=== PATIENT | male | born 1955 | race Caucasian/White ===

== ENCOUNTER 2017-06-02 18:39 | Emergency (ER) | payer MEDICARE ==
[2017-06-02 18:51] VITALS: BP 160/77; PULSE 86; RESP 18; TEMP 97.2
[2017-06-02] MEDS ORDERED: KETOROLAC 30 MG/ML 1 ML VIAL IVP STA (19:09)
--- NOTE | 2017-06-02 19:42 | ED ---
General Adult HPI - General Chief complaint: Back Pain/Injury Stated complaint: BACK PAIN, POSS KIDNEY Time Seen by Provider: 06/02/17 18:55 Source: patient, RN notes reviewed Mode of arrival: ambulatory Limitations: no limitations - History of Present Illness Initial comments: This is a 62-year-old male who presents to the emergency department with chief complaint of left-sided back pain. Patient states that 2 days ago he developed left sided back pain. He states that he feels like it is in his kidney. He states that the pain is constant and a deep, dull ache with intermittent sharp pain. He denies any radiation of the pain. He states that he has had difficulty urinating, stating that he feels a pressure-like pain when trying to urinate. He denies any increase in frequency or hematuria. He denies any history of kidney stones. Denies fevers or chills. States that pain is increased with movement, coughing or laughing, or anything that causes increase in "pressure." Patient does state that he has had multiple recent falls, however he denies injury to his back. Denies chest pain, shortness of breath, abdominal pain, nausea or vomiting, constipation or diarrhea, dysuria or hematuria, numbness or tingling, headache or vision changes. - Related Data Home Medications Medication Instructions Recorded Confirmed Asenapine Maleate [Saphris] 10 mg SL BID 06/02/17 06/02/17 Dextroamphetamine/Amphetamine 30 mg PO BID 06/02/17 06/02/17 [Adderall] Divalproex ER [Depakote ER] 1,000 mg PO HS 06/02/17 06/02/17 Divalproex ER [Depakote ER] 500 mg PO DAILY 06/02/17 06/02/17 Gabapentin [Neurontin] 300 mg PO BID 06/02/17 06/02/17 Metoprolol Tartrate [Lopressor] 25 mg PO BID 06/02/17 06/02/17 Multivitamins, Thera [Multivitamin 1 tab PO DAILY 06/02/17 06/02/17 (formulary)] Rosuvastatin Calcium [Crestor] 5 mg PO DAILY 06/02/17 06/02/17 Temazepam 30 mg PO HS 06/02/17 06/02/17 amLODIPine [Norvasc] 5 mg PO BID 06/02/17 06/02/17 clonazePAM [KlonoPIN] 0.5 mg PO BID 06/02/17 06/02/17 Allergies Allergy/AdvReac Type Severity Reaction Status Date / Time haloperidol [From Haldol] Allergy Anaphylaxis Verified 06/02/17 19:29 Review of Systems ROS Statement: Those systems with pertinent positive or pertinent negative responses have been documented in the HPI. ROS Other: All systems not noted in ROS Statement are negative. Past Medical History Past Medical History: Hyperlipidemia, Hypertension History of Any Multi-Drug Resistant Organisms: None Reported Past Surgical History: Appendectomy, Joint Replacement, Orthopedic Surgery, Tonsillectomy Additional Past Surgical History / Comment(s): finger surgery Past Psychological History: ADD/ADHD, Anxiety, Bipolar Smoking Status: Former smoker Past Alcohol Use History: None Reported Past Drug Use History: None Reported General Exam - General Exam Comments Initial Comments: General: Awake and alert, well-developed; in no apparent distress. HEENT: Head atraumatic, normocephalic. Pupils are equal, round and reactive to light. Extraocular movements intact. Oropharynx moist without erythema or exudate. Neck: Supple. Normal ROM. Cardiovascular: Regular rate and rhythm. No murmurs, rubs or gallops. Chest symmetrical. Respiratory: Lungs clear to auscultation bilaterally. No wheezes, rales or rhonchi. Normal respiratory effort with no use of accessory muscles. Abdomen: Soft, non-tender, non-distended. No rigidity, rebound or guarding. Normal bowel sounds in all 4 quadrants. Musculoskeletal: Normal ROM of spine. No tenderness on palpation of paraspinal muscles or SI joints. Left-sided CVA tenderness noted. Skin: [place], warm and dry without rashes or lesions. Neurological: Alert and oriented x3. CN II-XII grossly intact. Speech is fluent and answers are appropriate. No focal neuro deficits. Psychiatric: Normal mood and affect. No overt signs of depression or anxiety noted. Limitations: no limitations Course Vital Signs 06/02/17 18:44 Temperature 97.2 F L Pulse Rate 86 Respiratory 18 Rate Blood Pressure 160/77 O2 Sat by Pulse 94 L Oximetry Medical Decision Making - Medical Decision Making This is a 62-year-old male who presents to the emergency department with chief complaint of left-sided CVA tenderness. Patient states that he has been experiencing left-sided back pain as well as a pressure while trying to urinate for the past 2 days. Denies any hematuria or dysuria. Denies any fevers or chills. Patient's vital signs are stable and he is in no acute distress. CBC, CMP and UA are unremarkable. X-ray KUB revealed a nonacute abdomen. This case was discussed with attending physician, Dr. Mcclure who recommended CT angiogram of thoracic and abdominal aorta. This revealed no evidence for aortic dissection or aneurysm. Patient does admit to frequent falls, which may be contributing to patient's back pain. He is in no acute distress and will be discharged home. He is to follow-up with his primary care provider. Patient is in agreement with plan and voices understanding. All questions were answered. - Lab Data Result diagrams: 06/02/17 19:23 06/02/17 19:23 Lab Results 06/02/17 06/02/17 06/02/17 Range/Units 19:23 19:23 19:23 WBC 8.0 (3.8-10.6) k/uL RBC 4.96 (4.30-5.90) m/uL Hgb 14.1 (13.0-17.5) gm/dL Hct 40.9 (39.0-53.0) % MCV 82.4 (80.0-100.0) fL MCH 28.5 (25.0-35.0) pg MCHC 34.5 (31.0-37.0) g/dL RDW 14.0 (11.5-15.5) % Plt Count 339 (150-450) k/uL Neutrophils % 67 % Lymphocytes % 19 % Monocytes % 10 % Eosinophils % 1 % Basophils % 1 % Neutrophils # 5.4 (1.3-7.7) k/uL Lymphocytes # 1.5 (1.0-4.8) k/uL Monocytes # 0.8 (0-1.0) k/uL Eosinophils # 0.1 (0-0.7) k/uL Basophils # 0.0 (0-0.2) k/uL Sodium 136 L (137-145) mmol/L Potassium 3.9 (3.5-5.1) mmol/L Chloride 97 L (98-107) mmol/L Carbon Dioxide 24 (22-30) mmol/L Anion Gap 15 mmol/L BUN 15 (9-20) mg/dL Creatinine 0.50 L (0.66-1.25) mg/dL Est GFR (CKD-EPI)AfAm >90 (>60 ml/min/1.73 sqM) Est GFR (CKD-EPI)NonAf >90 (>60 ml/min/1.73 sqM) Glucose 94 (74-99) mg/dL Calcium 9.7 (8.4-10.2) mg/dL Total Bilirubin 0.2 (0.2-1.3) mg/dL AST 16 L (17-59) U/L ALT 18 L (21-72) U/L Alkaline Phosphatase 80 (38-126) U/L Total Protein 6.8 (6.3-8.2) g/dL Albumin 4.2 (3.5-5.0) g/dL Urine Color Yellow Urine Appearance Clear (Clear) Urine pH 6.5 (5.0-8.0) Ur Specific [place] 1.011 (1.001-1.035) Urine Protein Negative (Negative) Urine Glucose (UA) Negative (Negative) Urine Ketones Negative (Negative) Urine Blood Negative (Negative) Urine Nitrite Negative (Negative) Urine Bilirubin Negative (Negative) Urine Urobilinogen <2.0 (<2.0) mg/dL Ur Leukocyte Esterase Negative (Negative) - Radiology Data Radiology results: report reviewed X-ray KUB findings: There is no sign of intestinal obstruction or pneumoperitoneum. Fecal pattern is normal. Lung bases are clear. There is slight lumbar levoscoliosis. There are no pathologic calcifications over the kidneys. Impression: Nonacute abdomen. CT angiogram thoracic/abdominal aorta conclusion: Negative CT angiogram of the chest and abdomen. Mild atherosclerotic vascular disease. No evidence of aneurysm or dissection. No evidence of pulmonary embolism. Disposition Clinical Impression: Flank pain Disposition: HOME SELF-CARE Condition: Good Instructions: Back Pain (ED), Flank Pain (ED) Additional Instructions: Please follow up with primary care provider within 1-2 days. Return to emergency department if symptoms should worsen or any concerns arise. Referrals: Lula Conley MD [Primary Care Provider] - 1-2 days Vicki Negro MD [STAFF PHYSICIAN] - 1-2 days Phuong Colvin MD [STAFF PHYSICIAN] - 1-2 days Time of Disposition: :22
[2017-06-02 19:45] LABS: Appearance,Urine Clear (Clear); Bilirubin,Urine Negative (Negative); Blood,Urine Negative (Negative); Color,Urine Yellow; Glucose,Urine (UA) Negative (Negative); Ketones,Urine Negative (Negative); Leukocyte Esterase,Urine Negative (Negative); Nitrite,Urine Negative (Negative); PH, Urine 6.5 (5.0-8.0); Protein,Urine Negative (Negative); Specific Gravity,Urine 1.011 (1.001-1.035); Urobilinogen,Urine <2.0 mg/dL (<2.0)
[2017-06-02 19:48] LABS: Basophils % (A) 1 %; Eosinophils # (A) 0.1 k/uL (0-0.7); Eosinophils % (A) 1 %; HCT 40.9 % (39.0-53.0); HGB 14.1 gm/dL (13.0-17.5); Lymphocytes # (A) 1.5 k/uL (1.0-4.8); Lymphocytes % (A) 19 %; MCH 28.5 pg (25.0-35.0); MCHC 34.5 g/dL (31.0-37.0); MCV 82.4 fL (80.0-100.0); Mean Platelet Volume 6.1; Monocytes # (A) 0.8 k/uL (0-1.0); Monocytes % (A) 10 %; Neutrophils # (A) 5.4 k/uL (1.3-7.7); Neutrophils % (A) 67 %; Platelet Count 339 k/uL (150-450); RBC 4.96 m/uL (4.30-5.90)
[2017-06-02 19:59] LABS: ALT 18 U/L (21-72); AST 16 U/L (17-59); Albumin 4.2 g/dL (3.5-5.0); Alkaline Phosphatase 80 U/L (38-126); Anion Gap 15 mmol/L; Blood Urea Nitrogen 15 mg/dL (9-20); Calcium 9.7 mg/dL (8.4-10.2); Carbon Dioxide 24 mmol/L (22-30); Chloride 97 mmol/L (98-107); Glucose 94 mg/dL (74-99); Potassium 3.9 mmol/L (3.5-5.1); Sodium 136 mmol/L (137-145); Total Bilirubin 0.2 mg/dL (0.2-1.3); Total Protein 6.8 g/dL (6.3-8.2)
--- NOTE | 2017-06-02 20:31 | XR ---
EXAMINATION TYPE: XR KUB DATE OF EXAM: 06/02/2017 COMPARISON: NONE HISTORY: Left-sided pain TECHNIQUE: 2 views FINDINGS: There is no sign of intestinal obstruction or pneumoperitoneum. Fecal pattern is normal. Lilibeth ng bases are clear. There is slight lumbar levoscoliosis. There are no pathologic calcifications over the kidneys. IMPRESSION: Nonacute abdomen.
[2017-06-02] MEDS ORDERED: RX INFO: IV CONTRAST WAS GIVEN 1 EACH MISC MISCELLANE PRN (20:37)
--- NOTE | 2017-06-02 21:38 | CT ---
EXAMINATION TYPE: CT angio thoracic/abd aorta DATE OF EXAM: 06/02/2017 COMPARISON: NONE HISTORY: Left-sided abdominal pain and short of breath CT DLP: mGycm. Automated Exposure Control for Dose Reduction was Utilized. CONTRAST: The contrast was Isovue 100 mL. FINDINGS: There are 3-D post processed images. The lungs are clear of consolidation. There is no evidence of a pulmonary mass. There is no pericardial effusion. There is no pleural effusion. Thoracic aorta is int act. There is no sign of aneurysm or dissection. Ascending aorta measures 3.3 cm. There is mild atherosclerotic calcification in the abdominal aorta. There is no evidence of aneurysm or dissection. There is bilateral patency of the renal arteries. There is patency of the celiac arter y and the superior mesenteric artery. There is bilateral patency of the iliac arteries. There are spo ndylotic changes in the lumbar spine. Liver spleen pancreas are unremarkable. There is a 3 mm pancreatic calcification. Gallbladder is cont racted. There is no adrenal mass. Kidneys show satisfactory contrast opacification. There is no hydronephrosi s. There is no retroperitoneal adenopathy. There is no ascites. I see no intestinal wall thickening. There is no sign of a bowel obstruction. CONCLUSION: Negative CT angiogram of the chest and abdomen. Mild atherosclerotic vascular disease. No evidence of aneurysm or dissection. No evidence of pulmonary embolism.
== END 2017-06-02 22:40 | disposition home or self-care (01) ==
LOC: EC 18:39
DX: R10.9 Unspecified abdominal pain (principal); M54.9 Dorsalgia, unspecified; R39.198 Other difficulties with micturition; E78.5 Hyperlipidemia, unspecified; I10 Essential (primary) hypertension; F90.9 Attention-deficit hyperactivity disorder, unspecified type; F31.9 Bipolar disorder, unspecified; F41.9 Anxiety disorder, unspecified; Z87.891 Personal history of nicotine dependence; Z79.899 Other long term (current) drug therapy; Z88.8 Allergy status to other drugs, medicaments and biological substances
CPT/HCPCS: 36415; 80053; 85025; 81003; 87086; 74018; 75635; 71275; 99284; 96374; J1885; Q9967

== ENCOUNTER → 2017-10-31 | Day surgery (SDC) | payer MEDICARE, OTHER ==
[2017-10-30 09:47] VITALS: BMI 29.9
[~2017-10-31] MED LIST: LIDOCAINE 1% INJ 10MG/ML (20 ML MDV) ONE; LIDOCAINE 1% INJ 10MG/ML (20 ML MDV) SQ ONE; cefTRIAXone IN SWFI 2,000 MG/20 ML SYRINGE IVP STA
[2017-10-31 11:33] LABS: Basophils # (A) 0.1 k/uL (0-0.2); Basophils % (A) 1 %; Eosinophils # (A) 0.2 k/uL (0-0.7); Eosinophils % (A) 2 %; HCT 42.2 % (39.0-53.0); HGB 13.7 gm/dL (13.0-17.5); Lymphocytes # (A) 2.2 k/uL (1.0-4.8); Lymphocytes % (A) 29 %; MCH 28.6 pg (25.0-35.0); MCHC 32.4 g/dL (31.0-37.0); MCV 88.4 fL (80.0-100.0); Mean Platelet Volume 5.8; Monocytes # (A) 0.5 k/uL (0-1.0); Monocytes % (A) 7 %; Neutrophils # (A) 4.5 k/uL (1.3-7.7); Neutrophils % (A) 60 %; Platelet Count 473 k/uL (150-450); RBC 4.77 m/uL (4.30-5.90); RDW 14.3 % (11.5-15.5); WBC 7.5 k/uL (3.8-10.6)
[2017-10-31 11:49] LABS: Blood Urea Nitrogen 19 mg/dL (9-20)
[2017-10-31 12:39] VITALS: BP 183/88; RESP 18
--- NOTE | 2017-10-31 14:08 | IR ---
EXAMINATION TYPE: IR cvc insert >=5 years DATE OF EXAM: 10/31/2017 COMPARISON: NONE CLINICAL HISTORY: Infection Needs long-term intravenous access for antibiotics. PROCEDURE: After informed consent, the skin overlying the upper extremity vein was localized with ultrasound and noted to be compressible and patent. An ultrasound image was obtained and submitted on the patient' s chart. The overlying skin was prepped and draped and Lidocaine was used for local anesthesia. A s kin nando was made with a scalpel. Access was gained to the vein under ultrasound guidance with a 21 gauge needle and a 0.018 inch wire was advanced. Access site was dilated with Peel-Away sheath and c atheter tailored to the appropriate length and advanced such that the distal tip is at the cavoatrial junction. Spot image was obtained verifying placement. Catheter was fixed to the skin and a steril e dressing was placed following hemostasis. Catheter was aspirated and flushed with saline. Patient was discharged in stable condition without complication.Maximal barrier technique is utilized. Ultr asound image is documented on the chart. Ultrasound used with sterile technique. Fluoro time and fluoroscopic images submitted to document procedure: 58 intraoperative C-arm images, 0.3 minutes fluoroscopy time IMPRESSION: STATUS POST ULTRASOUND AND FLUOROSCOPIC GUIDED PICC LINE PLACEMENT, READY FOR USE. THIS PROCEDURE WAS PERFORMED BY THE UNDERSIGNED.
== END ==
LOC: CATHCVL 10:57
PROVIDERS: ATTEND Radiology Diagnostic Radiology
DX: T84.59XA Infection and inflammatory reaction due to other internal joint prosthesis, initial encounter (principal); M19.90 Unspecified osteoarthritis, unspecified site; E78.00 Pure hypercholesterolemia, unspecified; I10 Essential (primary) hypertension; E66.9 Obesity, unspecified; Z68.30 Body mass index [BMI] 30.0-30.9, adult; Z79.2 Long term (current) use of antibiotics; Z79.899 Other long term (current) drug therapy
CPT/HCPCS: 36569; 76937; 77001; 80051; 82565; 84520; 85025; C1751; C1769; J0696; J2001

== ENCOUNTER 2018-12-29 17:24 | Inpatient (IN) | payer MEDICARE ==
[2018-12-29] MEDS ORDERED: SODIUM CHLORIDE 0.9% 1,000 ML IV STA ×2 (17:33)
[2018-12-29] MEDS ORDERED: SODIUM CHLORIDE 0.9% 500 ML 500 ML IV STA (17:33)
--- NOTE | 2018-12-29 17:52 | ED ---
Weakness HPI - General Stated complaint: altered mental status Time Seen by Provider: 12/29/18 17:30 Source: RN notes reviewed, old records reviewed Limitations: altered mental status - History of Present Illness Initial comments: This is a 63-year-old male who is poor historian currently for altered mental status. Patient unable to respond appropriately to questions see does know where he is visibly isn't how he got here. Patient states he thinks his sodium or maybe potassium is low. Denies drugs or alcohol abuse. EMS was called secondary to possibility of overdose patient was climbing on the floor his house. Patient currently very weak chronically dehydrated with low blood pressure on EMS arrival. Blood pressures improved with IV hydration by EMS and patient resents ER, history otherwise obtained from patient's prior charting as well as EMS MD Complaint: generalized weakness, lack of energy, difficulty walking -: unknown Location: generalized Severity: severe Severity scale (1-10): 10 Quality: constant Consistency: constant Worsens with: none Context: history of similar Associated Symptoms: confusion, nausea/vomiting, shortness of breath - Related Data Home Medications Medication Instructions Recorded Confirmed Divalproex ER [Depakote ER] 500 mg PO BID 06/02/17 12/29/18 Metoprolol Tartrate [Lopressor] 25 mg PO BID 06/02/17 12/29/18 Rosuvastatin Calcium [Crestor] 5 mg PO HS 06/02/17 12/29/18 amLODIPine [Norvasc] 5 mg PO BID 06/02/17 12/29/18 Fenofibrate Nanocrystallized 145 mg PO DAILY 10/30/17 12/29/18 [Fenofibrate] Acetaminophen with Codeine 1 tab PO TID PRN 12/29/18 12/29/18 [Tylenol with Codeine #4 Tablet] Albuterol Sulfate [Ventolin HFA] 1 - 2 puff INHALATION RT-Q6H PRN 12/29/18 12/29/18 Chlorthalidone [Hygroton] 25 mg PO DAILY 12/29/18 12/29/18 Dextroamphetamine/Amphetamine 30 mg PO BID 12/29/18 12/29/18 [Adderall] Temazepam 30 mg PO HS 12/29/18 12/29/18 Vascepa 1gm 2 gm PO BID 12/29/18 12/29/18 chlordiazePOXIDE HCL 25 mg PO TID 12/29/18 12/29/18 Allergies Allergy/AdvReac Type Severity Reaction Status Date / Time haloperidol [From Haldol] Allergy Anaphylaxis Verified 12/29/18 17:38 Review of Systems ROS Statement: Those systems with pertinent positive or pertinent negative responses have been documented in the HPI. ROS Other: All systems not noted in ROS Statement are negative. Past Medical History Past Medical History: COPD, Hyperlipidemia, Hypertension, Osteoarthritis (OA) Additional Past Medical History / Comment(s): INFECTION OF LEFT SHOULDER History of Any Multi-Drug Resistant Organisms: None Reported Past Surgical History: Appendectomy, Joint Replacement, Orthopedic Surgery, Tonsillectomy Additional Past Surgical History / Comment(s): finger surgery, LEFT SHOULDER REPLACEMENT , IMPLANT REMOVED FROM LEFT SHOLDER, LEFT SHOULDER REPLACEMENT, TOTAL LEFT KNEE, REPAIR OF LEFT KNEE, Past Anesthesia/Blood Transfusion Reactions: Motion Sickness Smoking Status: Current every day smoker - Past Family History Sister(s) Family Medical History: Cancer General Exam General appearance: alert, anxious, lethargic, in distress Head exam: Present: atraumatic, normocephalic, normal inspection Eye exam: Present: normal appearance, PERRL, EOMI. Absent: scleral icterus, conjunctival injection, periorbital swelling ENT exam: Present: normal exam, mucous membranes dry Neck exam: Present: normal inspection. Absent: tenderness, meningismus, lymphadenopathy Respiratory exam: Present: normal lung sounds bilaterally. Absent: respiratory distress, wheezes, rales, rhonchi, stridor Cardiovascular Exam: Present: regular rate, normal rhythm, normal heart sounds. Absent: systolic murmur, diastolic murmur, rubs, gallop, clicks GI/Abdominal exam: Present: soft, normal bowel sounds. Absent: distended, tenderness, guarding, rebound, rigid Extremities exam: Present: normal inspection, full ROM, normal capillary refill. Absent: tenderness, pedal edema, joint swelling, calf tenderness Back exam: Present: normal inspection Neurological exam: Present: alert, oriented X3, CN II-XII intact Psychiatric exam: Present: normal affect, normal mood Skin exam: Present: warm, dry, intact, normal color. Absent: rash Course Vital Signs 12/29/18 12/29/18 17:53 19:31 Temperature 98.3 F 97.8 F Pulse Rate 70 63 Respiratory 20 18 Rate Blood Pressure 138/71 119/72 O2 Sat by Pulse 91 L 96 Oximetry - Reevaluation(s) Reevaluation #1: 12/29/18 17:52 Medical record is reviewed Reevaluation #2: 12/29/18 20:13 Medications medications are reviewed. Mild peripheral has been taking in 2 days. Unknown what injection did take place. Patient will be admitted for overdose causing multiple secondary issues including dehydration and altered mental status Reevaluation #3: 12/29/18 20:14 Patient denies homicidal or suicidal thoughts - Consultations Consultation #1: Spoke with Dr. Alba who is okay for admission Medical Decision Making - Medical Decision Making 63 male will admit for overdose and altered mental status dehydration hypokalemia. Patient will be monitored for worsening symptoms of altered mental status. She is patient is currently awake and breathing appropriately - Lab Data Result diagrams: 12/29/18 17:40 12/29/18 17:40 Lab Results 12/29/18 12/29/18 12/29/18 Range/Units 17:40 17:40 17:40 WBC 9.5 (3.8-10.6) k/uL RBC 3.97 L (4.30-5.90) m/uL Hgb 11.8 L (13.0-17.5) gm/dL Hct 34.9 L (39.0-53.0) % MCV 87.9 (80.0-100.0) fL MCH 29.8 (25.0-35.0) pg MCHC 33.9 (31.0-37.0) g/dL RDW 13.3 (11.5-15.5) % Plt Count 328 (150-450) k/uL Neutrophils % 80 % Lymphocytes % 10 % Monocytes % 6 % Eosinophils % 1 % Basophils % 0 % Neutrophils # 7.6 (1.3-7.7) k/uL Lymphocytes # 1.0 (1.0-4.8) k/uL Monocytes # 0.6 (0-1.0) k/uL Eosinophils # 0.1 (0-0.7) k/uL Basophils # 0.0 (0-0.2) k/uL PT (9.0-12.0) sec INR (<1.2) APTT (22.0-30.0) sec Sodium 133 L (137-145) mmol/L Potassium 3.0 L (3.5-5.1) mmol/L Chloride 91 L (98-107) mmol/L Carbon Dioxide 30 (22-30) mmol/L Anion Gap 12 mmol/L BUN 21 H (9-20) mg/dL Creatinine 0.51 L (0.66-1.25) mg/dL Est GFR (CKD-EPI)AfAm >90 (>60 ml/min/1.73 sqM) Est GFR (CKD-EPI)NonAf >90 (>60 ml/min/1.73 sqM) Glucose 87 (74-99) mg/dL Plasma Lactic Acid Héctor 1.4 (0.7-2.0) mmol/L Calcium 8.8 (8.4-10.2) mg/dL Phosphorus 2.3 L (2.5-4.5) mg/dL Magnesium 1.9 (1.6-2.3) mg/dL Total Bilirubin 0.8 (0.2-1.3) mg/dL AST 65 H (17-59) U/L ALT 35 (21-72) U/L Alkaline Phosphatase 49 (38-126) U/L Ammonia (<30) umol/L Creatine Kinase 413 H (55-170) U/L Troponin I (0.000-0.034) ng/mL NT-Pro-B Natriuret Pep pg/mL Total Protein 6.4 (6.3-8.2) g/dL Albumin 3.7 (3.5-5.0) g/dL TSH 0.630 (0.465-4.680) mIU/L Urine Color Urine Appearance (Clear) Urine pH (5.0-8.0) Ur Specific [place] (1.001-1.035) Urine Protein (Negative) Urine Glucose (UA) (Negative) Urine Ketones (Negative) Urine Blood (Negative) Urine Nitrite (Negative) Urine Bilirubin (Negative) Urine Urobilinogen (<2.0) mg/dL Ur Leukocyte Esterase (Negative) Valproic Acid ug/mL Serum Alcohol <10 mg/dL 12/29/18 12/29/18 12/29/18 Range/Units 17:40 17:40 17:40 WBC (3.8-10.6) k/uL RBC (4.30-5.90) m/uL Hgb (13.0-17.5) gm/dL Hct (39.0-53.0) % MCV (80.0-100.0) fL MCH (25.0-35.0) pg MCHC (31.0-37.0) g/dL RDW (11.5-15.5) % Plt Count (150-450) k/uL Neutrophils % % Lymphocytes % % Monocytes % % Eosinophils % % Basophils % % Neutrophils # (1.3-7.7) k/uL Lymphocytes # (1.0-4.8) k/uL Monocytes # (0-1.0) k/uL Eosinophils # (0-0.7) k/uL Basophils # (0-0.2) k/uL PT 9.9 (9.0-12.0) sec INR 0.9 (<1.2) APTT 23.1 (22.0-30.0) sec Sodium (137-145) mmol/L Potassium (3.5-5.1) mmol/L Chloride (98-107) mmol/L Carbon Dioxide (22-30) mmol/L Anion Gap mmol/L BUN (9-20) mg/dL Creatinine (0.66-1.25) mg/dL Est GFR (CKD-EPI)AfAm (>60 ml/min/1.73 sqM) Est GFR (CKD-EPI)NonAf (>60 ml/min/1.73 sqM) Glucose (74-99) mg/dL Plasma Lactic Acid Héctor (0.7-2.0) mmol/L Calcium (8.4-10.2) mg/dL Phosphorus (2.5-4.5) mg/dL Magnesium (1.6-2.3) mg/dL Total Bilirubin (0.2-1.3) mg/dL AST (17-59) U/L ALT (21-72) U/L Alkaline Phosphatase (38-126) U/L Ammonia (<30) umol/L Creatine Kinase (55-170) U/L Troponin I <0.012 (0.000-0.034) ng/mL NT-Pro-B Natriuret Pep 588 pg/mL Total Protein (6.3-8.2) g/dL Albumin (3.5-5.0) g/dL TSH (0.465-4.680) mIU/L Urine Color Urine Appearance (Clear) Urine pH (5.0-8.0) Ur Specific [place] (1.001-1.035) Urine Protein (Negative) Urine Glucose (UA) (Negative) Urine Ketones (Negative) Urine Blood (Negative) Urine Nitrite (Negative) Urine Bilirubin (Negative) Urine Urobilinogen (<2.0) mg/dL Ur Leukocyte Esterase (Negative) Valproic Acid ug/mL Serum Alcohol mg/dL 12/29/18 12/29/18 12/29/18 Range/Units 18:10 19:24 19:24 WBC (3.8-10.6) k/uL RBC (4.30-5.90) m/uL Hgb (13.0-17.5) gm/dL Hct (39.0-53.0) % MCV (80.0-100.0) fL MCH (25.0-35.0) pg MCHC (31.0-37.0) g/dL RDW (11.5-15.5) % Plt Count (150-450) k/uL Neutrophils % % Lymphocytes % % Monocytes % % Eosinophils % % Basophils % % Neutrophils # (1.3-7.7) k/uL Lymphocytes # (1.0-4.8) k/uL Monocytes # (0-1.0) k/uL Eosinophils # (0-0.7) k/uL Basophils # (0-0.2) k/uL PT (9.0-12.0) sec INR (<1.2) APTT (22.0-30.0) sec Sodium (137-145) mmol/L Potassium (3.5-5.1) mmol/L Chloride (98-107) mmol/L Carbon Dioxide (22-30) mmol/L Anion Gap mmol/L BUN (9-20) mg/dL Creatinine (0.66-1.25) mg/dL Est GFR (CKD-EPI)AfAm (>60 ml/min/1.73 sqM) Est GFR (CKD-EPI)NonAf (>60 ml/min/1.73 sqM) Glucose (74-99) mg/dL Plasma Lactic Acid Héctor (0.7-2.0) mmol/L Calcium (8.4-10.2) mg/dL Phosphorus (2.5-4.5) mg/dL Magnesium (1.6-2.3) mg/dL Total Bilirubin (0.2-1.3) mg/dL AST (17-59) U/L ALT (21-72) U/L Alkaline Phosphatase (38-126) U/L Ammonia 15 (<30) umol/L Creatine Kinase (55-170) U/L Troponin I (0.000-0.034) ng/mL NT-Pro-B Natriuret Pep pg/mL Total Protein (6.3-8.2) g/dL Albumin (3.5-5.0) g/dL TSH (0.465-4.680) mIU/L Urine Color Yellow Urine Appearance Clear (Clear) Urine pH 6.5 (5.0-8.0) Ur Specific [place] 1.014 (1.001-1.035) Urine Protein Negative (Negative) Urine Glucose (UA) Negative (Negative) Urine Ketones 1+ H (Negative) Urine Blood Negative (Negative) Urine Nitrite Negative (Negative) Urine Bilirubin Negative (Negative) Urine Urobilinogen <2.0 (<2.0) mg/dL Ur Leukocyte Esterase Negative (Negative) Valproic Acid 11.4 ug/mL Serum Alcohol mg/dL - Radiology Data Radiology results: report reviewed (CXR is mild PVC), image reviewed Disposition Clinical Impression: Dehydration, Hypokalemia, Overdose, Restoril use disorder, mild, abuse Disposition: ADMITTED IP TO THIS [facility] Condition: Fair Is patient prescribed a controlled substance at d/c from ED?: No Referrals: Lula Conley MD [Primary Care Provider] - 1-2 days
[2018-12-29 17:58] LABS: Basophils % (A) 0 %; Eosinophils # (A) 0.1 k/uL (0-0.7); Eosinophils % (A) 1 %; HCT 34.9 % (39.0-53.0); HGB 11.8 gm/dL (13.0-17.5); Lymphocytes % (A) 10 %; MCH 29.8 pg (25.0-35.0); MCHC 33.9 g/dL (31.0-37.0); MCV 87.9 fL (80.0-100.0); Mean Platelet Volume 5.9; Monocytes # (A) 0.6 k/uL (0-1.0); Monocytes % (A) 6 %; Neutrophils # (A) 7.6 k/uL (1.3-7.7); Neutrophils % (A) 80 %; Platelet Count 328 k/uL (150-450); RBC 3.97 m/uL (4.30-5.90); RDW 13.3 % (11.5-15.5); WBC 9.5 k/uL (3.8-10.6)
[2018-12-29 18:06] LABS: ALT 35 U/L (21-72); AST 65 U/L (17-59); African American GFR (CKD) >90 (>60 ml/min/1.73 sqM); Albumin 3.7 g/dL (3.5-5.0); Alcohol <10 mg/dL; Alkaline Phosphatase 49 U/L (38-126); Anion Gap 12 mmol/L; Blood Urea Nitrogen 21 mg/dL (9-20); Calcium 8.8 mg/dL (8.4-10.2); Carbon Dioxide 30 mmol/L (22-30); Chloride 91 mmol/L (98-107); Creatine Kinase 413 U/L (55-170); Glucose 87 mg/dL (74-99); INR 0.9 (<1.2); Magnesium 1.9 mg/dL (1.6-2.3); Partial Thromboplastin Time 23.1 sec (22.0-30.0); Phosphorus 2.3 mg/dL (2.5-4.5); Prothrombin Time 9.9 sec (9.0-12.0); Sodium 133 mmol/L (137-145); Total Bilirubin 0.8 mg/dL (0.2-1.3); Total Protein 6.4 g/dL (6.3-8.2)
[2018-12-29 19:15] LABS: Appearance,Urine Clear (Clear); Bilirubin,Urine Negative (Negative); Blood,Urine Negative (Negative); Color,Urine Yellow; Glucose,Urine (UA) Negative (Negative); Ketones,Urine 1+ (Negative); Leukocyte Esterase,Urine Negative (Negative); Nitrite,Urine Negative (Negative); PH, Urine 6.5 (5.0-8.0); Protein,Urine Negative (Negative); Specific Gravity,Urine 1.014 (1.001-1.035); Urobilinogen,Urine <2.0 mg/dL (<2.0)
--- NOTE | 2018-12-29 19:16 | XR ---
EXAMINATION TYPE: XR chest 2V DATE OF EXAM: 12/29/2018 COMPARISON: None INDICATION: Acute mental status changes, found down TECHNIQUE: Frontal and lateral views of the chest are obtained. FINDINGS: The heart size is normal. The pulmonary vasculature is prominent. Diffuse increased lung markings are present. Correlate for pulmonary edema. There is a left shoulder prosthesis.. IMPRESSION: 1. Diffuse increased lung markings with prominent pulmonary vascular markings. Correlate for pulmonar y edema.
[2018-12-29] MEDS: POTASSIUM CHLORIDE 10 MEQ in WATER FOR INJECTION 1 100ML.BAG IVPB SCH ×4 (19:33→23:06)
[2018-12-29] MEDS ORDERED: SODIUM CHLORIDE 0.9% 1,000 ML IV ONE (20:11)
[2018-12-29 20:44] LABS: Amphetamine Screen,Urine Not Detected (NotDetected); Barbiturate Screen,Urine Not Detected (NotDetected); Benzodiazepines Screen,Urine Detected (NotDetected); Cocaine Screen,Urine Not Detected (NotDetected); Methadone Screen, Urine Not Detected (NotDetected); Opiate Screen,Urine Detected (NotDetected); Oxycodone Screen, Urine Not Detected (NotDetected); Phencyclidine Screen,Urine Not Detected (NotDetected); Tricyclic Antidepressant,Urine Not Detected (NotDetected); Urn Cannabinoid Scrn Not Detected (NotDetected)
[2018-12-29 20:53] LABS: Acetaminophen <10.0 ug/mL
[2018-12-29 22:22] VITALS: BMI 26.4
[2018-12-29] MEDS: DIVALPROEX ER 500 MG TAB.ER.24H PO SCH (23:11)
[2018-12-30] MEDS: POTASSIUM CHLORIDE 10 MEQ in WATER FOR INJECTION 1 100ML.BAG IVPB SCH ×2 (00:29→01:54)
[2018-12-30] MEDS: IBUPROFEN 600 MG TAB PO PRN ×2 (02:31→12:22)
[2018-12-30] MEDS: ENOXAPARIN 40 MG/0.4 ML SYRINGE SQ SCH (08:16)
[2018-12-30] MEDS: DIVALPROEX ER 500 MG TAB.ER.24H PO SCH ×2 (08:16→21:23)
[2018-12-30 13:00] LABS: Basophils % (A) 0 %; Eosinophils # (A) 0.1 k/uL (0-0.7); Eosinophils % (A) 2 %; HGB 12.5 gm/dL (13.0-17.5); Lymphocytes # (A) 1.2 k/uL (1.0-4.8); Lymphocytes % (A) 16 %; MCHC 32.1 g/dL (31.0-37.0); MCV 90.4 fL (80.0-100.0); Mean Platelet Volume 5.7; Monocytes # (A) 0.6 k/uL (0-1.0); Monocytes % (A) 8 %; Neutrophils # (A) 5.4 k/uL (1.3-7.7); Neutrophils % (A) 71 %; Platelet Count 345 k/uL (150-450); RBC 4.32 m/uL (4.30-5.90); RDW 13.2 % (11.5-15.5); WBC 7.6 k/uL (3.8-10.6)
[2018-12-30 13:07] LABS: African American GFR (CKD) >90 (>60 ml/min/1.73 sqM); Anion Gap 12 mmol/L; Blood Urea Nitrogen 14 mg/dL (9-20); Calcium 8.9 mg/dL (8.4-10.2); Carbon Dioxide 26 mmol/L (22-30); Chloride 99 mmol/L (98-107); Glucose 113 mg/dL (74-99); Sodium 137 mmol/L (137-145)
--- NOTE | 2018-12-30 13:51 | XR ---
EXAMINATION TYPE: XR chest 1V DATE OF EXAM: 12/30/2018 HISTORY: chf. REFERENCE: Previous study dated 12/29/2018. FINDINGS: A left shoulder arthroplasties in place. The heart is not enlarged. Pulmonary vasculature has improved. Interstitial change is improved. There continue to be small, bilateral effusions. IMPRESSION: IMPROVING CHANGES OF CONGESTIVE HEART FAILURE.
--- NOTE | 2018-12-30 13:57 | XR ---
EXAMINATION TYPE: XR shoulder complete LT , 3 VIEWS DATE OF EXAM ORDERED: 12/30/2018 HISTORY: pain. COMPARISON: None. FINDINGS: A left shoulder arthroplasties in place. Prosthetic elements appear in good position. Ther e are hypertrophic changes in the left AC joint. IMPRESSION: STATUS POST LEFT SHOULDER ARTHROPLASTY.
[2018-12-30] MEDS ORDERED: Potassium Replacement Protocol 1 EACH MISC MISCELLANE PRN (15:08)
--- NOTE | 2018-12-30 15:36 | P.HPIM ---
History of Present Illness 63-year-old male was brought in by because of altered mental status appears to have overdosed on Xanax. Patient received prescription for Xanax 4 days ago the bottle is presently empty today patient is awake alert oriented times close to 3 have minimal to get history from the patient patient only complaint he has is pain in the shoulder because of the lack of sleep patient Taking Xanax for after the Other He Denied Any Suicidal Ideations. His Potassium Is Low As Well As in the Will Supplement Potassium Disease Secondary to Natriuretic Hypokalemia from IV Fluids. Patient Was Receiving IV Fluids Patient Chest X-Ray Initial Chest X- Ray Did Show an Is concerning for Pulmonary Edema BNP Is Not Very High When He Finally Patient Doesn't Have Any JVD Repeat Chest X-Ray In Spite Of IV Fluids Showed Clear Evidence of Pulmonary Edema I Did Review the Chest X-Rays Are Obtain an Echocardiogram. Patient Has Significant Psychiatric Issues and I Will Need Help from His Psychiatrist regarding his psych medications patient is not a cutely psychotic. Patient definitely will need placement patient has had multiple falls as well as the patient and patient is complaining of musculoskeletal chest pain secondary to fall. 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 Orthopedic surgery was consulted.. Review of Systems REVIEW OF SYSTEMS: CONSTITUTIONAL: No fever, no malaise, no fatigue. HEENT: No recent visual problems or hearing problems. Denied any sore throat. CARDIOVASCULAR: No chest pain, orthopnea, PND, no palpitations, no syncope. PULMONARY: No shortness of breath, no cough, no hemoptysis. GASTROINTESTINAL: No diarrhea, no nausea, no vomiting, no abdominal pain. NEUROLOGICAL: No headaches, no weakness, no numbness. HEMATOLOGICAL: Denies any bleeding or petechiae. GENITOURINARY: Denies any burning micturition, frequency, or urgency. MUSCULOSKELETAL/RHEUMATOLOGICAL: As mentioned in HPI ENDOCRINE: Denies any polyuria or polydipsia. The rest of the 14-point review of systems is negative. Past Medical History Past Medical History: COPD, Hyperlipidemia, Hypertension, Osteoarthritis (OA) Additional Past Medical History / Comment(s): INFECTION OF LEFT SHOULDER History of Any Multi-Drug Resistant Organisms: None Reported Past Surgical History: Appendectomy, Joint Replacement, Orthopedic Surgery, Tonsillectomy Additional Past Surgical History / Comment(s): finger surgery, LEFT SHOULDER REPLACEMENT , IMPLANT REMOVED FROM LEFT SHOLDER, LEFT SHOULDER REPLACEMENT, TOTAL LEFT KNEE, REPAIR OF LEFT KNEE, Past Anesthesia/Blood Transfusion Reactions: Motion Sickness Past Psychological History: ADD/ADHD, Anxiety, Bipolar Smoking Status: Current every day smoker Past Alcohol Use History: None Reported Additional Past Alcohol Use History / Comment(s): STARTED SMOKING AT AGE 17 - SMOKED 1 PPD (TRYING TO QUIT ) Past Drug Use History: None Reported - Past Family History Sister(s) Family Medical History: Cancer Medications and Allergies Home Medications Medication Instructions Recorded Confirmed Type Divalproex ER [Depakote ER] 500 mg PO BID 06/02/17 12/29/18 History Metoprolol Tartrate [Lopressor] 25 mg PO BID 06/02/17 12/29/18 History Rosuvastatin Calcium [Crestor] 5 mg PO HS 06/02/17 12/29/18 History amLODIPine [Norvasc] 5 mg PO BID 06/02/17 12/29/18 History Fenofibrate Nanocrystallized 145 mg PO DAILY 10/30/17 12/29/18 History [Fenofibrate] Acetaminophen with Codeine 1 tab PO TID PRN 12/29/18 12/29/18 History [Tylenol with Codeine #4 Tablet] Albuterol Sulfate [Ventolin HFA] 1 - 2 puff INHALATION RT-Q6H PRN 12/29/18 12/29/18 History Chlorthalidone [Hygroton] 25 mg PO DAILY 12/29/18 12/29/18 History Dextroamphetamine/Amphetamine 30 mg PO BID 12/29/18 12/29/18 History [Adderall] Temazepam 30 mg PO HS 12/29/18 12/29/18 History Vascepa 1gm 2 gm PO BID 12/29/18 12/29/18 History chlordiazePOXIDE HCL 25 mg PO TID 12/29/18 12/29/18 History Allergies Allergy/AdvReac Type Severity Reaction Status Date / Time haloperidol [From Haldol] Allergy Anaphylaxis Verified 12/29/18 17:38 Physical Exam Vitals: Vital Signs Temp Pulse Pulse Resp BP BP Pulse Ox 12/30/18 15:12 63 18 12/30/18 11:43 97.7 F 63 18 127/76 93 L 12/30/18 08:30 73 16 12/30/18 05:00 98.1 F 73 16 133/63 93 L 12/30/18 00:00 64 16 12/29/18 22:08 97.6 F 64 16 120/68 92 L 12/29/18 20:30 65 17 123/88 96 12/29/18 19:31 97.8 F 63 18 119/72 96 12/29/18 17:53 98.3 F 70 20 138/71 91 L Intake and Output 12/30/18 12/30/18 12/30/18 06:59 14:59 22:59 Intake Total 1690 180 Output Total 400 400 Balance 1290 180 -400 Intake: Intake, IV Titration 1100 Amount Potassium Chloride 10 meq 500 In Water For Injection 1 100ml.bag @ 100 mls/hr IVPB Q1HR CASSIDY Rx#: [id number] Sodium Chloride 0.9% 1, 600 000 ml @ 100 mls/hr IV . Q10H ONE Rx#:[id number] Oral 590 180 Output: Urine 400 400 Other: Voiding Method Urinal Urinal Diaper Diaper Incontinent Incontinent # Voids 1 4 4 # Bowel Movements 1 PHYSICAL EXAMINATION: GENERAL: The patient is alert and oriented x3, not in any acute distress. Well developed, well nourished. HEENT: Pupils are round and equally reacting to light. EOMI. No scleral icterus. No conjunctival pallor. Normocephalic, atraumatic. No pharyngeal erythema. No thyromegaly. CARDIOVASCULAR: S1 and S2 present. No murmurs, rubs, or gallops. PULMONARY: Chest is clear to auscultation, no wheezing or crackles. ABDOMEN: Soft, nontender, nondistended, normoactive bowel sounds. No palpable organomegaly. MUSCULOSKELETAL: Restricted active movements of the left shoulder as mentioned above EXTREMITIES: No cyanosis, clubbing, or pedal edema. NEUROLOGICAL: Gross neurological examination did not reveal any focal deficits. SKIN: No rashes. Results CBC & Chem 7: 12/30/18 12:33 12/30/18 12:33 Labs: Abnormal Lab Results - Last 24 Hours (Table) 12/29/18 12/29/18 12/29/18 Range/Units 17:40 17:40 18:10 RBC 3.97 L (4.30-5.90) m/uL Hgb 11.8 L (13.0-17.5) gm/dL Hct 34.9 L (39.0-53.0) % Sodium 133 L (137-145) mmol/L Potassium 3.0 L (3.5-5.1) mmol/L Chloride 91 L (98-107) mmol/L BUN 21 H (9-20) mg/dL Creatinine 0.51 L (0.66-1.25) mg/dL Glucose (74-99) mg/dL Phosphorus 2.3 L (2.5-4.5) mg/dL AST 65 H (17-59) U/L Creatine Kinase 413 H (55-170) U/L Urine Ketones 1+ H (Negative) Urine Opiates Screen (NotDetected) U Benzodiazepines Scrn (NotDetected) 12/29/18 12/30/18 12/30/18 Range/Units 18:10 12:33 12:33 RBC (4.30-5.90) m/uL Hgb 12.5 L (13.0-17.5) gm/dL Hct (39.0-53.0) % Sodium (137-145) mmol/L Potassium 3.0 L (3.5-5.1) mmol/L Chloride (98-107) mmol/L BUN (9-20) mg/dL Creatinine 0.40 L (0.66-1.25) mg/dL Glucose 113 H (74-99) mg/dL Phosphorus (2.5-4.5) mg/dL AST (17-59) U/L Creatine Kinase (55-170) U/L Urine Ketones (Negative) Urine Opiates Screen Detected H (NotDetected) U Benzodiazepines Scrn Detected H (NotDetected) Thrombosis Risk Factor Assmnt - Choose All That Apply Any of the Below Risk Factors Present?: Yes Each Factor Represents 1 point: Age 41-60 years Other Risk Factors: No Other congenital or acquired thrombophilia - If yes, enter type in comment: No Thrombosis Risk Factor Assessment Total Risk Factor Score: 1 Thrombosis Risk Factor Assessment Level: Low Risk Assessment and Plan Plan: -Altered mental status toxic encephalopathy from my excessive Xanax and overdose on Xanax. Patient will be monitored the patient is more awake now. -Multiple falls secondary to overdose on Xanax will obtain physical therapy occ lusion therapy and patient is homeless will need social work evaluation. -Hypokalemia natriuretic hypokalemia: Will supplement potassium -Hypovolemic hyponatremia patient received IV fluids with improvement in hyponatremia -Chest x-ray findings of pulmonary edema although clinically patient doesn't have CHF we'll obtain an echocardiogram hold off IV fluids will not order any Lasix patient is requiring 3 L of oxygen at this time. -Hyperlipidemia -Hypertension - left shoulder pain probably due to rotator cuff injury or LOC orthopedic surgery consultation patient was started on Toradol along with GI prophylaxis
[2018-12-30] MEDS: POTASSIUM CHLORIDE ER 20 MEQ TAB.ER PO SCH ×2 (17:05→18:19)
[2018-12-30] MEDS: chlordiazePOXIDE 25 MG CAP PO SCH ×2 (17:06→21:23)
--- NOTE | 2018-12-30 17:47 | P.CN ---
Psychiatric Consult - . Consult date: 12/30/18 Consult:: 12/30/18 17:38 IDENTIFYING DATA: 63-year-old male patient HPI: Patient admitted to the medical floor [facility] status post concerns of Restoril overdose. Patient was admitted with concerns of altered mental status, concerns of overdose. Per chart history he was given a prescription for days ago for Xanax with the bottle being empty, patient clarifies during this interview that it is Restoril that he takes. He states that it was a slow progressive overdose of Restoril, he has chronic insomnia and he states that the one he takes initially does not work he will take another one and that can go all night long. He says he knows he took all 30 pills and one night. He says he was laying on his bedroom floor for 4 days. He relates that he was having a lot of pain. He denies any thoughts of harm to himself when he took the Restoril pills. He says his mood lately has been pretty good. PAST PSYCHIATRIC HISTORY: He has had multiple inpatient psychiatric admissions in the past. He has history of bipolar disorder and ADHD. He also has history of anxiety disorder. Most recent medications have been Adderall 30 mg twice a day Librium 25 more grams 3 times a day Restoril 30 monitor at bedtime and Depakote ER 500 mg twice a day. As noted that his Depakote level was 11 on 12/29/2018. He denies any history of suicide attempts but says he has had previous unintentional overdoses. PMH: History of shoulder problems, with history of shoulder replacement and also knee replacement. ALLERGIES: Haloperidol MEDICATIONS: Librium, Depakote ER, Lovenox, Pepcid, Toradol when necessary, Lopressor CHEMICAL DEPENDENCY HISTORY: Patient does give a history as above overtaking the Restoril. Per charting history drug use and alcohol use are none reported FAMILY PSYCHIATRIC HISTORY: None known at this time FAMILY CHEMICAL DEPENDENCY HISTORY: No known at this time SOCIAL HISTORY: Currently lives with his girlfriend of 15 years. He's been twice and twice. MENTAL STATUS EXAM: He is alert and cooperative with the interview. His speech is fluent, not rapid or pressured. Thought processes are organized. His mood lately he describes as pretty good. He denies any thoughts of harm to self or others. No evidence of active psychosis. Cognitively appears to be grossly intact. IMPRESSIONS: Bipolar disorder, attention deficit hyperactivity disorder by history, unspecified anxiety disorder, sedative hypnotic use disorder PLAN: Would recommend inpatient psychiatric hospitalization to monitor and stabilize from a psychiatric standpoint after medical clearance. Patient flavio balizing that he would like to be off of the Restoril. He is agreeable for inpatient psychiatric admission. Psychiatry can continue to follow up as he is being medically cleared. At this time we'll maintain Depakote and monitor compliance.
[2018-12-30] MEDS: KETOROLAC 30 MG/ML 1 ML VIAL IVP PRN (18:19)
[2018-12-30] MEDS: METOPROLOL TARTRATE 25 MG TAB PO SCH (21:23)
[2018-12-30] MEDS: FAMOTIDINE 20 MG TAB PO SCH (21:23)
[2018-12-31] MEDS: KETOROLAC 30 MG/ML 1 ML VIAL IVP PRN ×3 (00:44→16:47)
[2018-12-31] MEDS: DIVALPROEX ER 500 MG TAB.ER.24H PO SCH (09:12)
[2018-12-31] MEDS: chlordiazePOXIDE 25 MG CAP PO SCH ×2 (09:13→16:49)
[2018-12-31] MEDS: METOPROLOL TARTRATE 25 MG TAB PO SCH (09:13)
[2018-12-31] MEDS: ENOXAPARIN 40 MG/0.4 ML SYRINGE SQ SCH (09:13)
[2018-12-31] MEDS: FAMOTIDINE 20 MG TAB PO SCH (09:13)
[2018-12-31 11:45] VITALS: BP 143/81; PULSE 60; RESP 20; TEMP 97.7
--- NOTE | 2018-12-31 16:09 | P.PN ---
Progress Note - Text Progress Note Date: 12/31/18 Please see full consult note from Fredo Lara PA-C. Briefly the patient has had multiple problems with his left shoulder. He initially saw Dr. Aniket Saldivar who told him there were no qualified shoulder surgeons in [place] and he would have to seek treatment elsewhere. The patient eventually saw Dr. Arthur at [facility] orthopedics who performed a reverse total shoulder replacement. He has had multiple problems with this shoulder since his surgery including fractures and deep space infection which required surgical debridement and IV antibiotics via PICC line. He is currently admitted to internal medicine for altered mental status due to an overdose of Xanax. Orthopedics was consulted for shoulder pain. At the time of my evaluation the patient has no overt signs of infection and his x-rays showed fractures of the distal clavicle and displacement of the glenosphere, but no keren dislocation. Due to the patient's history of infection I recommended an aspiration which was attempted and no fluid was withdrawn. I see no sign for acute surgical intervention. I recommended supportive care with a sling. The patient requested that I prescribed pain medication, but I would defer to the primary service. I would recommend following up with Dr. Arthur as an outpatient. Orthopaedics will sign off. If there are any questions or concerns, please call and we would be happy to reevaluate. Procedure: Verbal consent for a left shoulder aspiration was obtained. The posterior portal of the shoulder was prepped with alcohol and ChloraPrep. Using sterile technique an 18-gauge spinal needle was inserted through the posterior portal directed anteriorly toward the coracoid process. The needle tip hip the metal prosthesis and was advanced into the shoulder joint. I was unable to aspirate any fluid. The needle is withdrawn and a Band-Aid was applied.
--- NOTE | 2018-12-31 16:22 | P.CNOR ---
History of Present Illness - HPI Consult date: 12/31/18 History of present illness: This patient is a 63 year old male with multiple medical problems that presented to [facility] ED on 12/29/18 with altered mental status secondary to an overdose on Xanax. He was subsequently admitted to internal medicine with a consult placed to orthopedics for evaluation of left shoulder pain. The patient states he has had chronic pain in the left shoulder. He underwent multiple surgeries on the left shoulder, most recently a reverse total shoulder arthroplasty in [address] Orr at [facility], per patient. He states he developed an infection following surgery, and this ultimately required PICC line placement and a consultation with Dr. Huitron. Patient states he experienced an acute increase in this shoulder pain after having multiple falls on Monday secondary to his overdose. He locates his pain to the anterior shoulder. He denies additional complaints at the time of my exam. Vital signs stable. Past Medical History Past Medical History: COPD, Hyperlipidemia, Hypertension, Osteoarthritis (OA) Additional Past Medical History / Comment(s): INFECTION OF LEFT SHOULDER History of Any Multi-Drug Resistant Organisms: None Reported Past Surgical History: Appendectomy, Joint Replacement, Orthopedic Surgery, Tonsillectomy Additional Past Surgical History / Comment(s): finger surgery, LEFT SHOULDER REPLACEMENT , IMPLANT REMOVED FROM LEFT SHOLDER, LEFT SHOULDER REPLACEMENT, TOTAL LEFT KNEE, REPAIR OF LEFT KNEE, Past Anesthesia/Blood Transfusion Reactions: Motion Sickness Past Psychological History: ADD/ADHD, Anxiety, Bipolar Smoking Status: Current every day smoker Past Alcohol Use History: None Reported Additional Past Alcohol Use History / Comment(s): STARTED SMOKING AT AGE 17 - SMOKED 1 PPD (TRYING TO QUIT ) Past Drug Use History: None Reported - Past Family History Sister(s) Family Medical History: Cancer Medications and Allergies Home Medications Medication Instructions Recorded Confirmed Type Divalproex ER [Depakote ER] 500 mg PO BID 06/02/17 12/29/18 History Metoprolol Tartrate [Lopressor] 25 mg PO BID 06/02/17 12/29/18 History Rosuvastatin Calcium [Crestor] 5 mg PO HS 06/02/17 12/29/18 History amLODIPine [Norvasc] 5 mg PO BID 06/02/17 12/29/18 History Fenofibrate Nanocrystallized 145 mg PO DAILY 10/30/17 12/29/18 History [Fenofibrate] Albuterol Sulfate [Ventolin HFA] 1 - 2 puff INHALATION RT-Q6H PRN 12/29/18 12/29/18 History Dextroamphetamine/Amphetamine 30 mg PO BID 12/29/18 12/29/18 History [Adderall] Vascepa 1gm 2 gm PO BID 12/29/18 12/29/18 History chlordiazePOXIDE HCL 25 mg PO TID 12/29/18 12/29/18 History Famotidine [Pepcid] 20 mg PO BID tab 12/31/18 Rx Allergies Allergy/AdvReac Type Severity Reaction Status Date / Time haloperidol [From Haldol] Allergy Anaphylaxis Verified 12/29/18 17:38 Physical Examination On examination, the patient is sitting up in the chair in no apparent distress. He is alert and orientated x3. His head is normocephalic and atraumatic. His breathing appears nonlabored. On inspection of the left shoulder, there is two healed incisions of the anterior shoulder. No swelling, erythema, warmth. There is mild tenderness to palpation of the anterior shoulder and deltoid. No fluctuance. No pain on palpation of the wrist, forearm, elbow, clavicle. Motor and sensory function are intact. The left upper extremity is warm and well perfused. Results X-ray of the left shoulder 12/30/18: reverse total shoulder arthroplasty with significant displacement of the glenoid. Nonunion of a distal clavicle fracture. - Labs Labs: Abnormal Lab Results - Last 24 Hours (Table) 12/31/18 12/31/18 Range/Units 11:31 11:31 ESR 68 H (0-15) mm/hr C-Reactive Protein 63.5 H (<10.0) mg/L Microbiology - Last 24 Hours (Table) 12/29/18 17:40 Blood Culture - Preliminary Blood No Growth after 24 hours H & H 12/29/18 12/30/18 Range/Units 17:40 12:33 Hgb 11.8 L 12.5 L (13.0-17.5) gm/dL Hct 34.9 L 39.0 (39.0-53.0) % Coagulation 12/29/18 Range/Units 17:40 INR 0.9 (<1.2) Result Diagrams: 12/30/18 12:33 12/30/18 21:04 Assessment and Plan Assessment: Left shoulder pain. Plan: No surgical intervention is planned at this time. Conservative treatment is recommended we a sling, rest, ice, elevation, and NSAIDS. Patient was instructed to follow up with his surgeon Dr. Orr moving forward. Please see procedure text of aspiration performed, by Dr. Owens.
--- NOTE | 2018-12-31 16:39 | P.DS ---
Providers Date of admission: 12/29/18 20:11 Expected date of discharge: 12/31/18 Attending physician: Yazan Alba Consults: 12/30/18 12:52 Consult Physician Routine Consulting Provider: Derian Kinney Consult Reason/Comments: to review psych medications Do you want consulting provider notified?: Already Contacted 12/30/18 15:19 Consult Physician Routine Consulting Provider: Carlos Owens Consult Reason/Comments: left shoulder pain Do you want consulting provider notified?: Yes Primary care physician: Lula [facility] Course: Final diagnosis -Altered mental status toxic encephalopathy -Multiple falls secondary to overdose on Xanax -Hypokalemia natriuretic hypokalemia -Hypovolemic hyponatremia -Chest x-ray findings of pulmonary edema although clinically patient doesn't have CHF we'll obtain an echocardiogram -Hyperlipidemia -Hypertension -left shoulder pain probably due to rotator cuff injury Discharge disposition Patient is being discharged in a stable condition with guarded prognosis to inpatient psychiatric facility here in [facility]. Total time taken is 35 minutes. History of present illness Is is a 63-year-old male who was brought in and admitted for altered mental status and appears to have overdosed on Xanax and was being closely monitored. Patient went through a prescription bottle within 4 days of receiving it. Patient has multiple psychiatric issues and will need continued inpatient treatment at this time. Patient is not acutely psychotic. During hospitalization patient reported pain in his left shoulder due to frequent falls and orthopedic surgery was consulted. An attempt to drain or aspirate fluid from the left shoulder was done with no aspiration. Patient will follow-up in the outpatient setting upon discharge. Currently patient denies any chest pain, shortness of breath, or palpitations at this time. Patient is afebrile. Patient denies any nausea or vomiting and is tolerating diet. Currently patient's condition is stable and patient is more awake and alert at this time. Patient agrees to inpatient psychiatric hospitalization at this time. Patient will need possible placement upon discharge as he is currently homeless. Spoke with sister today and is agreeable to taking in and help coordinate with his medications but has mentioned that she will be looking for long-term facility for him. Guarded prognosis. on Exam vital signs are stable. Temp is 97.7F, pulse is 60, respirations are 20, blood pressure is 143/81, oxygen saturation is 93% on room air. Cardio S1 and S2 are present. Respiratory system shows diminished breath sounds at the bases otherwise clear to auscultation. Abdomen is soft and nontender. Nervous system shows no focal deficits. Please refer to medication reconciliation sheet for a list of medications. Patient Condition at Discharge: Fair Plan - Discharge Summary Discharge Rx Participant: Yes New Discharge Prescriptions: New Famotidine [Pepcid] 20 mg PO BID tab Continue amLODIPine [Norvasc] 5 mg PO BID Rosuvastatin Calcium [Crestor] 5 mg PO HS Metoprolol Tartrate [Lopressor] 25 mg PO BID Divalproex ER [Depakote ER] 500 mg PO BID Fenofibrate Nanocrystallized [Fenofibrate] 145 mg PO DAILY Albuterol Sulfate [Ventolin HFA] 1 - 2 puff INHALATION RT-Q6H PRN PRN Reason: Shortness Of Breath Vascepa 1gm 2 gm PO BID chlordiazePOXIDE HCL 25 mg PO TID Dextroamphetamine/Amphetamine [Adderall] 30 mg PO BID Discontinued Temazepam 30 mg PO HS Chlorthalidone [Hygroton] 25 mg PO DAILY Acetaminophen with Codeine [Tylenol with Codeine #4 Tablet] 1 tab PO TID PRN PRN Reason: Pain Discharge Medication List Divalproex ER [Depakote ER] 500 mg PO BID 06/02/17 [History] Metoprolol Tartrate [Lopressor] 25 mg PO BID 06/02/17 [History] Rosuvastatin Calcium [Crestor] 5 mg PO HS 06/02/17 [History] amLODIPine [Norvasc] 5 mg PO BID 06/02/17 [History] Fenofibrate Nanocrystallized [Fenofibrate] 145 mg PO DAILY 10/30/17 [History] Albuterol Sulfate [Ventolin HFA] 1 - 2 puff INHALATION RT-Q6H PRN 12/29/18 [History] Dextroamphetamine/Amphetamine [Adderall] 30 mg PO BID 12/29/18 [History] Vascepa 1gm 2 gm PO BID 12/29/18 [History] chlordiazePOXIDE HCL 25 mg PO TID 12/29/18 [History] Famotidine [Pepcid] 20 mg PO BID tab 12/31/18 [Rx] Follow up Appointment(s)/Referral(s): Lula Conley MD [Primary Care Provider] - 1-2 days Activity/Diet/Wound Care/Special Instructions: Patient will be going to inpatient psych activity as tolerated continue working with PT/OT continue current diet follow up with primary care provider upon discharge Discharge Disposition: TRANSFER TO PSYCH HOSP/UNIT
--- NOTE | 2019-01-01 07:25 | ECHOF ---
Referral Reason:chf MEASUREMENTS -------- HEIGHT: 180.3 cm WEIGHT: 81.6 kg BP: 137/79 RVIDd: 3.5 cm (< 3.3) IVSd: 1.3 cm (0.6 - 1.1) LVIDd: 4.8 cm (3.9 - 5.3) LVPWd: 1.1 cm (0.6 - 1.1) IVSs: 1.7 cm LVIDs: 3.3 cm LVPWs: 1.7 cm LA Diam: 3.9 cm (2.7 - 3.8) LAESV Index (A-L): 23.73 ml/m Ao Diam: 3.1 cm (2.0 - 3.7) AV Cusp: 2.2 cm (1.5 - 2.6) MV EXCURSION: 20.174 mm (> 18.000) MV EF SLOPE: 100 mm/s (70 - 150) EPSS: 0.3 cm MV E Peter: 0.80 m/s MV DecT: 177 ms MV A Peter: 0.60 m/s MV E/A Ratio: 1.35 RAP: 5.00 mmHg RVSP: 32.85 mmHg FINDINGS -------- Sinus rhythm. This was a technically adequate study. The left ventricular size is normal. There is mild concentric left ventricular hypertrophy. Overa ll left ventricular systolic function is normal with, an EF between 60 - 65 %. The diastolic fillin g pattern is normal for the age of the patient 9.78. The right ventricle is mildly enlarged. Normal LA size by volume 22+/-6 ml/m2. The right atrium is normal in size. Interatrial and interventricular septum intact. The aortic valve is trileaflet and appears structurally normal. The mitral valve is normal. Mild tricuspid regurgitation present. Right ventricular systolic pressure is normal at < 35 mmHg. There is no pulmonic regurgitation present. The aortic root size is normal. Normal inferior vena cava with normal inspiratory collapse consistent with estimated right atrial pre ssure of 5 mmHg. The inferior vena cava is mildly dilated. There is no pericardial effusion. CONCLUSIONS -------- 1. Sinus rhythm. 2. This was a technically adequate study. 3. The left ventricular size is normal. 4. There is mild concentric left ventricular hypertrophy. 5. Overall left ventricular systolic function is normal with, an EF between 60 - 65 %. 6. The diastolic filling pattern is normal for the age of the patient 9.78 7. The right ventricle is mildly enlarged. 8. Normal LA size by volume 22+/-6 ml/m2. 9. The right atrium is normal in size. 10. Interatrial and interventricular septum intact. 11. The aortic valve is trileaflet and appears structurally normal. 12. The mitral valve is normal. 13. Mild tricuspid regurgitation present. 14. Right ventricular systolic pressure is normal at < 35 mmHg. 15. There is no pulmonic regurgitation present. 16. The aortic root size is normal. 17. Normal inferior vena cava with normal inspiratory collapse consistent with estimated right atrial pressure of 5 mmHg. 18. The inferior vena cava is mildly dilated. 19. There is no pericardial effusion. LOOM FIXER APPRENTICE: Micheline Campo RDCS
== END 2018-12-31 17:50 | disposition home or self-care (01) | DRG 917 ==
LOC: EC 17:24 → 3NMEDONC 20:11
PROVIDERS: ADMIT Hospitalist; ATTEND Hospitalist
DX: T42.4X1A Poisoning by benzodiazepines, accidental (unintentional), initial encounter (principal); G92 Toxic encephalopathy; E87.1 Hypo-osmolality and hyponatremia; J81.1 Chronic pulmonary edema; E86.0 Dehydration; J44.9 Chronic obstructive pulmonary disease, unspecified; S46.002A Unspecified injury of muscle(s) and tendon(s) of the rotator cuff of left shoulder, initial encounter; E86.1 Hypovolemia; E87.6 Hypokalemia; R29.6 Repeated falls; F90.9 Attention-deficit hyperactivity disorder, unspecified type; F31.9 Bipolar disorder, unspecified; F41.9 Anxiety disorder, unspecified; E78.5 Hyperlipidemia, unspecified; Z96.612 Presence of left artificial shoulder joint; F17.200 Nicotine dependence, unspecified, uncomplicated; I10 Essential (primary) hypertension; M19.90 Unspecified osteoarthritis, unspecified site; Z86.19 Personal history of other infectious and parasitic diseases; Z90.89 Acquired absence of other organs; Z79.899 Other long term (current) drug therapy; Z88.8 Allergy status to other drugs, medicaments and biological substances; Z80.9 Family history of malignant neoplasm, unspecified; Z59.0 Homelessness
CPT/HCPCS: 36415; 71045; 71046; 80048; 80053; 80164; 80306; 80320; 80329; 81003; 82140; 82550; 83520; 83605; 83735; 83880; 84100; 84132; 84443; 84484; 85025; 85610; 85652; 85730; 86140; 87040; 93005; 93306; 94760; 96360; 96361; 96365; 96366; 99285

== ENCOUNTER 2018-12-31 14:36 | Inpatient (IN) | payer MEDICARE, MEDICAID ==
[2018-12-31 18:37] VITALS: BMI 28.3
[2018-12-31] MEDS ORDERED: ALBUTEROL NEBULIZED 2.5 MG/3 ML INHALATION PRN (19:32)
[2018-12-31] MEDS ORDERED: MAGNESIUM HYDROXIDE 2,400 MG/10 ML CUP PO PRN (19:33)
[2018-12-31] MEDS ORDERED: ZIPRASIDONE 20 MG VIAL IM PRN (19:33)
[2018-12-31] MEDS ORDERED: MAG HYDROX/AL HYDROX/SIMETH 30 ML CUP PO PRN (19:33)
[2018-12-31] MEDS: ATORVASTATIN 10 MG TAB PO SCH (22:46)
[2018-12-31] MEDS: METOPROLOL TARTRATE 25 MG TAB PO SCH (22:46)
[2018-12-31] MEDS: FAMOTIDINE 20 MG TAB PO SCH (22:46)
[2018-12-31] MEDS: amLODIPine 5 MG TAB PO SCH (22:46)
[2018-12-31] MEDS: DIVALPROEX ER 500 MG TAB.ER.24H PO SCH (22:46)
[2018-12-31] MEDS: chlordiazePOXIDE 25 MG CAP PO SCH (22:47)
[2018-12-31] MEDS: ACETAMINOPHEN TAB 325 MG TAB PO PRN (22:48)
[2019-01-01] MEDS ORDERED: traMADol 50 MG TAB PO STA (03:38)
[2019-01-01 08:22] LABS: ALT 31 U/L (21-72); AST 28 U/L (17-59); African American GFR (CKD) >90 (>60 ml/min/1.73 sqM); Alkaline Phosphatase 54 U/L (38-126); Anion Gap 12 mmol/L; Blood Urea Nitrogen 11 mg/dL (9-20); Calcium 9.6 mg/dL (8.4-10.2); Carbon Dioxide 26 mmol/L (22-30); Chloride 100 mmol/L (98-107); Cholesterol 123 mg/dL (<200); Glucose 100 mg/dL (74-99); HDL Cholesterol 26 mg/dL (40-60); LDL Cholesterol,Calculated 56 mg/dL (0-99); Potassium 3.3 mmol/L (3.5-5.1); Sodium 138 mmol/L (137-145); Total Bilirubin 0.5 mg/dL (0.2-1.3); Total Protein 7.2 g/dL (6.3-8.2); Triglycerides 204 mg/dL (<150)
[2019-01-01] MEDS ORDERED: POTASSIUM CHLORIDE ER 20 MEQ TAB.ER PO STA ×2 (09:50→15:25)
[2019-01-01] MEDS: amLODIPine 5 MG TAB PO SCH ×2 (09:51→21:00)
[2019-01-01] MEDS: FENOFIBRATE 160 MG TAB PO SCH (09:52)
[2019-01-01] MEDS: METOPROLOL TARTRATE 25 MG TAB PO SCH ×2 (09:52→20:59)
[2019-01-01] MEDS: chlordiazePOXIDE 25 MG CAP PO SCH ×3 (09:52→21:00)
[2019-01-01] MEDS: DIVALPROEX ER 500 MG TAB.ER.24H PO SCH ×2 (09:52→20:59)
[2019-01-01] MEDS: FAMOTIDINE 20 MG TAB PO SCH ×2 (09:52→21:00)
[2019-01-01] MEDS ORDERED: diphenhydrAMINE 50 MG CAP PO PRN (12:47)
--- NOTE | 2019-01-01 13:29 | P.HP ---
Psychiatric H&P - . H&P Date: 01/01/19 History & Physical: Allergies Allergy/AdvReac Type Severity Reaction Status Date / Time haloperidol From Haldol Allergy Anaphylaxis Verified 12/31/18 19:20 Vital Signs Temp 98.0 F 01/01/19 07:04 Pulse 70 01/01/19 07:04 Resp 14 01/01/19 07:04 BP 152/87 01/01/19 07:04 Pulse Ox Intake & Output 12/31/18 01/01/19 01/01/19 18:59 06:59 18:59 Weight 89.369 kg Laboratory Last Values Sodium 138 mmol/L (137-145) 01/01/19 07:46 Potassium 3.3 mmol/L (3.5-5.1) L 01/01/19 07:46 Chloride 100 mmol/L (98-107) 01/01/19 07:46 Carbon Dioxide 26 mmol/L (22-30) 01/01/19 07:46 Anion Gap 12 mmol/L 01/01/19 07:46 BUN 11 mg/dL (9-20) 01/01/19 07:46 Creatinine 0.45 mg/dL (0.66-1.25) L 01/01/19 07:46 Est GFR (CKD-EPI)AfAm >90 (>60 ml/min/1.73 sqM) 01/01/19 07:46 Est GFR (CKD-EPI)NonAf >90 (>60 ml/min/1.73 sqM) 01/01/19 07:46 Glucose 100 mg/dL (74-99) H 01/01/19 07:46 Calcium 9.6 mg/dL (8.4-10.2) 01/01/19 07:46 Total Bilirubin 0.5 mg/dL (0.2-1.3) 01/01/19 07:46 AST 28 U/L (17-59) 01/01/19 07:46 ALT 31 U/L (21-72) 01/01/19 07:46 Alkaline Phosphatase 54 U/L (38-126) 01/01/19 07:46 Total Protein 7.2 g/dL (6.3-8.2) 01/01/19 07:46 Albumin 4.0 g/dL (3.5-5.0) 01/01/19 07:46 Triglycerides 204 mg/dL (<150) H 01/01/19 07:46 Cholesterol 123 mg/dL (<200) 01/01/19 07:46 LDL Cholesterol, Calc 56 mg/dL (0-99) 01/01/19 07:46 HDL Cholesterol 26 mg/dL (40-60) L 01/01/19 07:46 TSH 2.130 mIU/L (0.465-4.680) 01/01/19 07:46 Valproic Acid 28.2 ug/mL 01/01/19 07:46 01/01/19 13:19 IDENTIFYING DATA: Patient is a 63-year-old male who currently lives with a sister in a house and has 2 kids is single and collects Social Security disability HPI: Patient presented to the hospital and was initially admitted to the medical floors for evaluation as patient had an overdose. Patient was seen by Dr. Ordonez for psychiatric consultation and was recommended to be admitted to the mental health unit after being medically cleared. Patient was seen and evaluated today and stated that he has been dealing with bipolar disorder and chronic insomnia "my whole life" however states that he was only recently diagnosed in 2013. Patient states that he was at home and claimed that his insomnia had been getting worse and he was being prescribed Restoril for this which she took approximately 30 tablets over a prolonged period of time and was not able to sleep. Patient denied it being a suicide attempt and stated that he was only trying to get rest. He states that he got more confused and started wandering around his house and felt dizzy and had a fall. Patient asked his girlfriend to call 911 and was brought into the hospital. Patient states that he has taken more of his sleep medications in the past however has never finished all bottle. Patient admitted to having recent change in his life where him and his girlfriend are deciding that they won a mutual breakup and he is moving in with his sister. Patient claims that this is a positive positive thing in his life and denies any other stressors. He states that his last manic episode was several years ago and cannot remember what his signs and symptoms were at that time. At this time patient denies any depression, denies any anxiety. He states that he has been having difficulties with sleep and would like help with that. Patient denies any suicidal or homicidal ideations intent or plan. At this time patient denies any auditory or visual hallucinations. Patient denies any flight of ideas racing thoughts and increased in goal directed behavior. Patient claims that he does not use any drugs at this time and denies any cigarette use for the past 5 months stating that he quit smoking. He denies any alcohol or marijuana. UDS was positive for benzos and opiates which she is being prescribed. PAST PSYCHIATRIC HISTORY: Patient states that history of bipolar disorder which was diagnosed in 2013. Patient is on Depakote 500 mg twice a day and also Librium. Patient claims that he has been hospitalized over 12 times and most recently at [facility] 2 years ago. Patient claims that he has never had a suicide attempt in the past. PMH: Osteoarthritis, degenerative joint disease, multiple surgeries on his shoulder with a previous infection, GERD, hypertension ALLERGIES: as per EMR CHEMICAL DEPENDENCY HISTORY: as per HPI FAMILY PSYCHIATRIC/SUBSTANCE USE HISTORY: denies SOCIAL HISTORY: He states that he is born and raised in [facility] and completed up until the eighth grade dropped out and then obtained his GED later on in life. Patient claims to have never been to assisted or jail. He currently has 2 kids and lives with his sister in a house and collects Social Security disability. MENTAL STATUS EXAM: General Appearance: Patient appears to be older than stated age is alert, directable and cooperative. Patient appears to have poor hygiene and poor grooming. Patient appears to be an moderate pain. Behavior: Patient is calmly seated without any agitated behavior. Speech: Patient's speech is fluent and nonpressured. Mood/Affect: Patient reports their mood is "fine", affect is congruent and constricted. Suicidality/Homicidality: Patient denies having any suicidal or homicidal ideation intent or plan. Perceptions: Patient denies any auditory or visual hallucinations. Though content/process: There is no evidence of any delusional thought content and thought process is linear and goal-directed. Memory and concentration: AOX3, grossly intact for the purposes of this session. Can spell "WORLD" backwards Judgment and insight: poor STRENGTHS/WEAKNESSES: strength is that patient has a supportive family, weaknesses that patient has chronic mental illness and poor insight. INTELLECT: average IMPRESSIONS: Bipolar disorder, mixed features Anxiety disorder Chronic insomnia. PLAN: -Patient is admitted under voluntary status to MHU for stabilization of psychiatric symptoms and safety. Patient signed adult voluntary form and medication consent and is placed in patient's chart. -Medications : Will start patient on Depakote ER however will switch to 1500 mg daily at bedtime for mood stabilization/insomnia. We'll continue Librium 25 mg 3 times a day for anxiety. Benadryl 50 mg daily at bedtime when necessary for sleep. -Patient's Depakote level on admission was 11.4 -Geodon and Ativan PRN for agitation/aggression -Patient was informed of the risks, benefits and side effects of the medication and patient verbally consented to taking the medications. Patient signed med consent form and was placed in chart. -NRT -diabetes patient does not smoke. - on board for discharge planning. Patient likely discharge within 2-3 days. 01/01/19 13:28 01/01/19 13:29
--- NOTE | 2019-01-01 15:23 | P.CONS ---
History of Present Illness - Reason for Consult Medical clearance - History of Present Illness Patient was transferred from my service to psychiatric floor as per recommendations by psychiatric for management of his depression. Patient was treated for altered mental status toxicants of methicillin with drug overdose with Xanax. Patient this time is complaining of pain in the shoulder area for which we'll use naproxen. And patient had osteoarthritis of the left shoulder area had previous interventions in the left shoulder area. Patient Active motions were significantly restricted during his last hospitalization here but It's actually better now. Review of Systems REVIEW OF SYSTEMS: CONSTITUTIONAL: No fever, no malaise, no fatigue. HEENT: No recent visual problems or hearing problems. Denied any sore throat. CARDIOVASCULAR: No chest pain, orthopnea, PND, no palpitations, no syncope. PULMONARY: No shortness of breath, no cough, no hemoptysis. GASTROINTESTINAL: No diarrhea, no nausea, no vomiting, no abdominal pain. NEUROLOGICAL: No headaches, no weakness, no numbness. HEMATOLOGICAL: Denies any bleeding or petechiae. GENITOURINARY: Denies any burning micturition, frequency, or urgency. MUSCULOSKELETAL/RHEUMATOLOGICAL: As mentioned in HPI ENDOCRINE: Denies any polyuria or polydipsia. The rest of the 14-point review of systems is negative. Past Medical History Past Medical History: COPD, Hyperlipidemia, Hypertension, Osteoarthritis (OA) Additional Past Medical History / Comment(s): INFECTION OF LEFT SHOULDER History of Any Multi-Drug Resistant Organisms: None Reported Past Surgical History: Appendectomy, Joint Replacement, Orthopedic Surgery, Tonsillectomy Additional Past Surgical History / Comment(s): finger surgery, LEFT SHOULDER REPLACEMENT , IMPLANT REMOVED FROM LEFT SHOLDER, LEFT SHOULDER REPLACEMENT, TOTAL LEFT KNEE, REPAIR OF LEFT KNEE, Past Anesthesia/Blood Transfusion Reactions: Motion Sickness Past Psychological History: ADD/ADHD, Anxiety, Bipolar Smoking Status: Former smoker Past Alcohol Use History: None Reported Additional Past Alcohol Use History / Comment(s): STARTED SMOKING AT AGE 17 - SMOKED 1 PPD (TRYING TO QUIT ) pt quit smoking 6 months ago, chews every day now Past Drug Use History: None Reported - Past Family History Sister(s) Family Medical History: Cancer Medications and Allergies Home Medications Medication Instructions Recorded Confirmed Type Divalproex ER [Depakote ER] 500 mg PO BID 06/02/17 12/31/18 History Metoprolol Tartrate [Lopressor] 25 mg PO BID 06/02/17 12/31/18 History Rosuvastatin Calcium [Crestor] 5 mg PO HS 06/02/17 12/31/18 History amLODIPine [Norvasc] 5 mg PO BID 06/02/17 12/31/18 History Fenofibrate Nanocrystallized 145 mg PO DAILY 10/30/17 12/31/18 History [Fenofibrate] Albuterol Sulfate [Ventolin HFA] 1 - 2 puff INHALATION RT-Q6H PRN 12/29/18 12/31/18 History Dextroamphetamine/Amphetamine 30 mg PO BID 12/29/18 12/31/18 History [Adderall] Vascepa 1gm 2 gm PO BID 12/29/18 12/31/18 History chlordiazePOXIDE HCL 25 mg PO TID 12/29/18 12/31/18 History Famotidine [Pepcid] 20 mg PO BID tab 12/31/18 12/31/18 Rx Allergies Allergy/AdvReac Type Severity Reaction Status Date / Time haloperidol [From Haldol] Allergy Anaphylaxis Verified 12/31/18 19:20 Physical Exam Vitals: Vital Signs Temp Pulse Resp BP 01/01/19 07:04 98.0 F 70 14 152/87 12/31/18 18:14 97.7 F 66 18 161/90 PHYSICAL EXAMINATION: GENERAL: The patient is alert and oriented x3, not in any acute distress. Well developed, well nourished. HEENT: Pupils are round and equally reacting to light. EOMI. No scleral icterus. No conjunctival pallor. Normocephalic, atraumatic. No pharyngeal erythema. No thyromegaly. CARDIOVASCULAR: S1 and S2 present. No murmurs, rubs, or gallops. PULMONARY: Chest is clear to auscultation, no wheezing or crackles. ABDOMEN: Soft, nontender, nondistended, normoactive bowel sounds. No palpable organomegaly. MUSCULOSKELETAL: No joint swelling or deformity. Left shoulder active motion restriction mild secondary to osteoarthritis EXTREMITIES: No cyanosis, clubbing, or pedal edema. NEUROLOGICAL: Gross neurological examination did not reveal any focal deficits. SKIN: No rashes. Results CBC & Chem 7: 01/01/19 07:46 Labs: Abnormal Lab Results - Last 24 Hours (Table) 01/01/19 Range/Units 07:46 Potassium 3.3 L (3.5-5.1) mmol/L Creatinine 0.45 L (0.66-1.25) mg/dL Glucose 100 H (74-99) mg/dL Triglycerides 204 H (<150) mg/dL HDL Cholesterol 26 L (40-60) mg/dL Assessment and Plan Plan: -Left shoulder pain secondary to osteoarthritis we'll patient was started on naproxen along with GI prophylaxis -Hyperlipidemia -Hypertension -Hyperlipidemia #Depression and other psychiatric issues management as per primary service Above-mentioned chronic medical problems patient was resumed on appropriate home medications
[2019-01-01] MEDS: MELOXICAM 7.5 MG TAB PO PRN ×2 (16:06→22:22)
[2019-01-01 17:38] LABS: Hemoglobin A1C 5.2 % (4.0-6.0)
[2019-01-01] MEDS: ATORVASTATIN 10 MG TAB PO SCH (21:00)
[2019-01-01] MEDS: ACETAMINOPHEN TAB 325 MG TAB PO PRN (21:04)
[2019-01-02 07:16] VITALS: TEMP 97.9
[2019-01-02] MEDS: amLODIPine 5 MG TAB PO SCH ×2 (08:53→21:35)
[2019-01-02] MEDS: METOPROLOL TARTRATE 25 MG TAB PO SCH ×2 (08:55→21:35)
[2019-01-02] MEDS: chlordiazePOXIDE 25 MG CAP PO SCH ×3 (08:55→21:35)
[2019-01-02] MEDS: FENOFIBRATE 160 MG TAB PO SCH (08:55)
[2019-01-02] MEDS: FAMOTIDINE 20 MG TAB PO SCH ×2 (08:55→21:35)
[2019-01-02] MEDS: Acetaminophen-Codeine 300-30mg TAB PO PRN ×3 (10:10→21:39)
--- NOTE | 2019-01-02 10:39 | P.PN ---
Progress Note - Text Progress Note Date: 01/02/19 Interval History: Patient was seen in his room laying down and was agreeable to speak to insurance underwriter in the office this morning. Patient states that he is continuing to have pain being here in the hospital and off of his Tylenol 4's which she regularly takes at home. Patient states that he has many upcoming appointments with the orthopedic surgeon who worked on his shoulder and his knee. Patient requested several times to have medicine prescribed him the pain medications. Patient states that she had improved sleep last night, sleeping 5-6 hours however patient was in significant pain and found it difficult to maintain sleep. He states that he has been trying to go to groups and participate. He claims to have fair energy and appetite. Patient claims that his mood and anxiety have been improving and denies any manic symptoms at this time. At this time patient denies any suicidal or homical ideations, intent or plan. Patient denies any auditory, visual hallucinations and denies any paranoia or delusions. Patient denies any side effects from the medications and has been compliant with meds. Mental Status Exam: General Appearance: Patient appears to be older than stated age is alert, directable and cooperative. Improving hygiene and grooming. Patient appears to be an moderate pain. Behavior: Patient is calmly seated without any agitated behavior. Speech: Patient's speech is fluent and nonpressured. Mood/Affect: Patient reports their mood is "ok", affect is congruent and constricted. Suicidality/Homicidality: Patient denies having any suicidal or homicidal ideation intent or plan. Perceptions: Patient denies any auditory or visual hallucinations. Though content/process: There is no evidence of any delusional thought content and thought process is linear and goal-directed. Memory and concentration: AOX3, grossly intact for the purposes of this session. Judgment and insight: Fair, improving. Assessment Bipolar disorder, mixed features Anxiety disorder Chronic insomnia Plan: -Patient continues to meet criteria for inpatient psychiatric admission for sy mptom stabilization and safety. Patient has signed adult voluntary form and medication consent and was placed in patient's chart. -Medications: We'll continue with Depakote ER 1500 mg nightly for mood stabilization/insomnia. We'll continue with Librium 25 mg 3 times a day for anxiety. Continue with Benadryl 50 mg nightly when necessary for sleep. -When necessary Geodon and Ativan for agitation/aggression. -NRT -not needed as patient does not smoke -SW on board for discharge planning. Likely discharge tomorrow to sister's house. Patient follows up at [facility] in [place].
[2019-01-02] MEDS: DIVALPROEX ER 500 MG TAB.ER.24H PO SCH (21:34)
[2019-01-02] MEDS: ATORVASTATIN 10 MG TAB PO SCH (21:35)
[2019-01-03 07:08] VITALS: BP 160/81; RESP 18
[2019-01-03 08:35] VITALS: PULSE 72
[2019-01-03] MEDS: FAMOTIDINE 20 MG TAB PO SCH (08:35)
[2019-01-03] MEDS: amLODIPine 5 MG TAB PO SCH (08:35)
[2019-01-03] MEDS: chlordiazePOXIDE 25 MG CAP PO SCH (08:35)
[2019-01-03] MEDS: MELOXICAM 7.5 MG TAB PO PRN (08:36)
[2019-01-03] MEDS: METOPROLOL TARTRATE 25 MG TAB PO SCH (08:36)
[2019-01-03] MEDS: FENOFIBRATE 160 MG TAB PO SCH (08:36)
[2019-01-03] MEDS: Acetaminophen-Codeine 300-30mg TAB PO PRN (08:37)
--- NOTE | 2019-01-03 10:07 | P.DS ---
Providers Date of admission: 12/31/18 17:54 Expected date of discharge: 01/03/19 Attending physician: Pipe Oconnor MD Consults: 12/31/18 19:33 Consult Physician Routine Consulting Provider: Yazan Alba Consult Reason/Comments: H&P and medical Do you want consulting provider notified?: Yes Primary care physician: Lula Mccord Jarvis - Discharge Diagnosis(es) (1) Bipolar disorder, mixed Current Visit: Yes Status: Acute Priority: High (2) Anxiety disorder Current Visit: Yes Status: Acute Priority: Medium (3) Chronic insomnia Current Visit: Yes Status: Acute Priority: Medium Hospital Course: Admission HPI: Patient is a 63-year-old male who currently lives with a sister in a house and has 2 kids is single and collects Social Security disability. Patient presented to the hospital and was initially admitted to the medical floors for evaluation as patient had an overdose. Patient was seen by Dr. Ordonez for psychiatric consultation and was recommended to be admitted to the mental health unit after being medically cleared. Patient was seen and evaluated today and stated that he has been dealing with bipolar disorder and chronic insomnia "my whole life" however states that he was only recently diagnosed in 2013. Patient states that he was at home and claimed that his insomnia had been getting worse and he was being prescribed Restoril for this which she took approximately 30 tablets over a prolonged period of time and was not able to sleep. Patient denied it being a suicide attempt and stated that he was only trying to get rest. He states that he got more confused and started wandering around his house and felt dizzy and had a fall. Patient asked his girlfriend to call 911 and was brought into the hospital. Patient states that he has taken more of his sleep medications in the past however has never finished all bottle. Patient admitted to having recent change in his life where him and his girlfriend are deciding that they won a mutual breakup and he is moving in with his sister. Patient claims that this is a positive positive thing in his life and denies any other stressors. He states that his last manic episode was several years ago and cannot remember what his signs and symptoms were at that time. At this time patient denies any depression, denies any anxiety. He states that he has been having difficulties with sleep and would like help with that. Patient denies any suicidal or homicidal ideations intent or plan. At this time patient denies any auditory or visual hallucinations. Patient denies any flight of ideas racing thoughts and increased in goal directed behavior. Patient claims that he does not use any drugs at this time and denies any cigarette use for the past 5 months stating that he quit smoking. He denies any alcohol or marijuana. UDS was positive for benzos and opiates which she is being prescribed. Hospital course: Upon admission to the unit patient was initially in pain, anxious/depressed with poor sleep. Patient was however directable and agreeable to commence treatment. Patient got along well with other patients on the unit and followed unit protocol. Patient was compliant with the medications and denied any side effects throughout hospital course. Patient was re-started on Depakote ER however was increased up to 1500 mg dosed nightly for mood stabilization/insomnia. Patient was restarted on his home dose of Librium 25 mg 3 times a day for anxiety. Patient was also started on Benadryl 50 mg nightly as needed for sleep. Patient spoke of his stressors and engaged in therapy both group and individual. Patient was also seen by medical team for history and physical exam. Throughout the course of the hospitalization patient gradually improved with regards to mood, anxiety, sleep and became future oriented with improved insight and judgment. On the day of discharge patient denied any suicidal or homicidal ideations intent or plan denied any auditory or visual hallucinations. Patient endorsed wanting to live for his future and his family. The patient denied any access to guns or weapons. Patient denied any paranoia and did not endorse any delusions. Patient does not have a significant history of substance abuse however was counseled on abstaining from all substances including alcohol and marijuana. Patient was also counseled on the medications and need for regular compliance and was encouraged to follow-up with their outpatient appointment for mental health and also for primary care. Prior to discharge a family meeting will be arranged by geriatric social work professor to answer any questions and ensure safety upon discharge. Mental status exam: General Appearance: Patient appears to be older than stated age is alert, pleasant, and cooperative. Patient continues to be in mild acute distress secondary to pain and has fair hygiene and grooming Behavior: Patient is calmly seated without any agitated behavior. Speech: Patient's speech is fluent and nonpressured. Mood/Affect: Patient reports their mood is "good", affect is congruent and euthymic. Suicidality/Homicidality: Patient denies having any suicidal or homicidal ideation intent or plan. Perceptions: Patient denies any auditory or visual hallucinations. Though content/process: There is no evidence of any delusional thought content and thought process is linear and goal-directed. Memory and concentration: AOX3, grossly intact for the purposes of this session. Can spell "WORLD" backwards correctly. Judgment and insight: fair, improved Impression: Bipolar disorder, mixed Anxiety disorder Chronic insomnia Plan: -Continue with discharge today as patient has improved and stabilized psychi atrically and is not currently an imminent threat to himself and/or others. -Continue medications: Depakote ER 1500 mg daily at bedtime for mood stabilization/insomnia. Continue with Librium 25 mg 3 times a day for anxiety. Continue with Benadryl 50 mg nightly when necessary for sleep. -Patient was counseled on the need for medication compliance and appropriate follow-up at mental health and also primary care for medical issues. Patient verbalized understanding and agreed. -Social work to arrange for and conduct family meeting to ensure safety upon discharge and answer any questions/concerns. Social work also to arrange for patients follow up appointments with [facility] [place] for psychiatric follow- up along with follow up with primary care provider. Patient also has upcoming appointments with his orthopedic surgeon for further evaluation/management of his chronic shoulder and knee pain. -Patient counseled on abstaining from recreational drugs and marijuana and alcohol. Was informed/educated on the adverse effects on their physical and mental health. Patient verbally agreed and understood -Patient was instructed to return to the hospital or seek immediate medical care if their psychiatric or medical systems do worsen or reoccur. Allergies Allergy/AdvReac Type Severity Reaction Status Date / Time haloperidol [From Haldol] Allergy Anaphylaxis Verified 12/31/18 19:20 Laboratory Results Sodium 138 mmol/L (137-145) 01/01/19 07:46 Potassium 3.9 mmol/L (3.5-5.1) 01/01/19 14:54 Chloride 100 mmol/L (98-107) 01/01/19 07:46 Carbon Dioxide 26 mmol/L (22-30) 01/01/19 07:46 Anion Gap 12 mmol/L 01/01/19 07:46 BUN 11 mg/dL (9-20) 01/01/19 07:46 Creatinine 0.45 mg/dL (0.66-1.25) L 01/01/19 07:46 Est GFR (CKD-EPI)AfAm >90 (>60 ml/min/1.73 sqM) 01/01/19 07:46 Est GFR (CKD-EPI)NonAf >90 (>60 ml/min/1.73 sqM) 01/01/19 07:46 Glucose 100 mg/dL (74-99) H 01/01/19 07:[address] Glu mg/dL 103 01/01/19 07:46 Hemoglobin A1c 5.2 % (4.0-6.0) 01/01/19 07:46 Calcium 9.6 mg/dL (8.4-10.2) 01/01/19 07:46 Total Bilirubin 0.5 mg/dL (0.2-1.3) 01/01/19 07:46 AST 28 U/L (17-59) 01/01/19 07:46 ALT 31 U/L (21-72) 01/01/19 07:46 Alkaline Phosphatase 54 U/L (38-126) 01/01/19 07:46 Total Protein 7.2 g/dL (6.3-8.2) 01/01/19 07:46 Albumin 4.0 g/dL (3.5-5.0) 01/01/19 07:46 Triglycerides 204 mg/dL (<150) H 01/01/19 07:46 Cholesterol 123 mg/dL (<200) 01/01/19 07:46 LDL Cholesterol, Calc 56 mg/dL (0-99) 01/01/19 07:46 HDL Cholesterol 26 mg/dL (40-60) L 01/01/19 07:46 TSH 2.130 mIU/L (0.465-4.680) 01/01/19 07:46 Valproic Acid 28.2 ug/mL 01/01/19 07:46 Vital Signs Temp 97.9 F 01/02/19 07:14 Pulse 72 01/03/19 08:34 Resp 18 01/03/19 07:07 BP 160/81 01/03/19 07:07 Pulse Ox 97 01/03/19 08:34 Patient Condition at Discharge: Stable Plan - Discharge Summary Discharge Rx Participant: No New Discharge Prescriptions: New diphenhydrAMINE [Benadryl] 50 mg PO HS PRN 28 Days cap PRN Reason: Insomnia Divalproex ER [Depakote ER] 1,500 mg PO HS 28 Days tab.er.24h Continue amLODIPine [Norvasc] 5 mg PO BID Rosuvastatin Calcium [Crestor] 5 mg PO HS Metoprolol Tartrate [Lopressor] 25 mg PO BID Fenofibrate Nanocrystallized [Fenofibrate] 145 mg PO DAILY Albuterol Sulfate [Ventolin HFA] 1 - 2 puff INHALATION RT-Q6H PRN PRN Reason: Shortness Of Breath Vascepa 1gm 2 gm PO BID chlordiazePOXIDE HCL 25 mg PO TID Dextroamphetamine/Amphetamine [Adderall] 30 mg PO BID Famotidine [Pepcid] 20 mg PO BID tab Discontinued Divalproex ER [Depakote ER] 500 mg PO BID Discharge Medication List Metoprolol Tartrate [Lopressor] 25 mg PO BID 06/02/17 [History] Rosuvastatin Calcium [Crestor] 5 mg PO HS 06/02/17 [History] amLODIPine [Norvasc] 5 mg PO BID 06/02/17 [History] Fenofibrate Nanocrystallized [Fenofibrate] 145 mg PO DAILY 10/30/17 [History] Albuterol Sulfate [Ventolin HFA] 1 - 2 puff INHALATION RT-Q6H PRN 12/29/18 [History] Dextroamphetamine/Amphetamine [Adderall] 30 mg PO BID 12/29/18 [History] Vascepa 1gm 2 gm PO BID 12/29/18 [History] chlordiazePOXIDE HCL 25 mg PO TID 12/29/18 [History] Famotidine [Pepcid] 20 mg PO BID tab 12/31/18 [Rx] Divalproex ER [Depakote ER] 1,500 mg PO HS 28 Days tab.er.24h 01/03/19 [Rx] diphenhydrAMINE [Benadryl] 50 mg PO HS PRN 28 Days cap 01/03/19 [Rx] Patient Instructions/Handouts: Depression (DC), Suicide Prevention (DC) Activity/Diet/Wound Care/Special Instructions: Activity and diet as tolerated. Avoid the use of street drugs and alcohol. Take all medications as prescribed. When you are in need of refills on your medications please contact your medical provider and/or outpatient psychiatrist to have this done. Please go to scheduled outpatient appointment for aftercare treatment. If symptoms return or become worse, call the crisis line at and/or go to the nearest emergency room for evaluation. Follow up with Orthopedic regarding shoulder Discharge Disposition: HOME SELF-CARE
== END 2019-01-03 12:24 | disposition home or self-care (01) | DRG 885 ==
LOC: 3MHU 17:54
PROVIDERS: ADMIT Psychiatry & Neurology Psychiatry; ATTEND Psychiatry & Neurology Psychiatry
DX: F31.60 Bipolar disorder, current episode mixed, unspecified (principal); E78.5 Hyperlipidemia, unspecified; F41.9 Anxiety disorder, unspecified; F51.04 Psychophysiologic insomnia; F90.9 Attention-deficit hyperactivity disorder, unspecified type; I10 Essential (primary) hypertension; J44.9 Chronic obstructive pulmonary disease, unspecified; K21.9 Gastro-esophageal reflux disease without esophagitis; Z79.899 Other long term (current) drug therapy; Z87.891 Personal history of nicotine dependence; Z96.612 Presence of left artificial shoulder joint; Z96.652 Presence of left artificial knee joint; Z88.8 Allergy status to other drugs, medicaments and biological substances
CPT/HCPCS: 80053; 80061; 80164; 83036; 84132; 84443

== ENCOUNTER 2019-08-05 10:41 | Inpatient (IN) | payer MEDICARE, OTHER ==
[2019-08-05] MEDS ORDERED: ROCURONIUM BROMIDE 10 MG/ML 5 ML VIAL IV ONE (10:42)
[2019-08-05] MEDS ORDERED: PROPOFOL 10 MG/ML 20 ML VIAL IV ONE (10:42)
[2019-08-05] MEDS ORDERED: CEFEPIME 2 GM in SODIUM CHLORIDE 0.9% 100 ML IVPB STA (11:00)
[2019-08-05] MEDS ORDERED: VANCOMYCIN IV PER PHARMACY 1 EACH MISC MISCELLANE PRN (11:00)
[2019-08-05] MEDS ORDERED: SODIUM CHLORIDE 0.9% 1,000 ML IV STA (11:02)
--- NOTE | 2019-08-05 11:07 | ED ---
General Adult HPI - General Stated complaint: Covid + Time Seen by Provider: 08/05/19 10:59 - History of Present Illness Initial comments: Dictation was produced using [employer] dictation software. please excuse any grammatical, word or spelling errors. This patient was cared for during a federal and state declared state of emergency secondary to Covid 19 Chief Complaint: 64-year-old male with unknown past medical history presents with hypoxia and altered mental status. History of Present Illness: 64-year-old male is brought in by EMS. EMS reports that they were called for unresponsiveness. [facility] noted that patient was ill-appearing and called EMS. Upon EMS arrival patient was obtunded. Patient did have a 101 temperature fever. Was also found to be hypoxic with initial saturations in the 30s. Patient unable to provide HPI this time secondary to mental status. ROS Unable to obtain secondary to mental status PHYSICAL EXAM: General Impression: Obtunded, poor cap refill HEENT: Normocephalic atraumatic, extra-ocular movements intact, pupils equal and reactive to light bilaterally, dry mucous membranes Cardiovascular: Tachycardic Chest: Sonorous respirations, no retractions, gurgling noisy breathing Abdomen: abdomen soft, non-distended, no organomegaly Musculoskeletal: thready pulses, no peripheral edema, no asymmetric lower extremity swelling Motor: no focal deficits noted Neurological: Unresponsive, pupils 3 mm reactive to light Skin: Intact with no visualized rashes ED course: 64-year-old male presents with unresponsiveness and hypoxic resp iratory failure. Signs upon arrival shows hypoxia in the 50% with supplemental oxygen. Blood pressure is normotensive. He is tachycardic in the 120s. Patient moved into a negative pressure room #4. Patient was initially evaluated with significant hypoxia. Rapid sequence intubation was performed using Glidoscope. During intubation procedure there is note of purulent fluid and the upper airway. Saturations improved. Patient given broad-spectrum antibiotics. 2 large-bore IVs were obtained. Laboratory evaluation obtained. CBC is grossly within acceptable limits. There is however mild lymphopenia. No leukocytosis. Coag panel is unremarkable. Blood gas shows pH is 7.17, pCO2 of 66 with a pO2 of 45 with 100% FiO2. Bicarb of 26. Clinical presentation concerning for hypercarbic hypoxemic respiratory acidosis. Metabolic panel shows elevated BUN to creatinine ratio and findings concerning for acute kidney injury. Lactic acidosis 3.1. Urinalysis shows 7 white blood cells. Toxicology panel is unremarkable. Influenza test negative. Pending coronavirus testing. Chest x-ray shows good placement of 18 and G2. There is bilateral airspace disease. Discussed patient case with Dr. So who is accepting the patient to the intensive care unit. Discussed patient case with Dr. Alvarado who will be hospitalist taking care of patient. She was broad- spectrum antibiotics. Per recommendation by equipment validation specialist Dr. So recommends adding advance labs including d-dimer, ferritin, CRP, Percocet calcitonin. He also requests patient be administered steroids. EKG interpretation: Ventricular rate 120, sinus tachycardia,. 162, QRS 76, QTC 438. No [place] prolongation, no QTC prolongation, no ST or T-wave changes noted. EKG compared to [default value] showing no changes. Overall, this EKG is unremarkable - Related Data Home Medications Medication Instructions Recorded Confirmed Metoprolol Tartrate [Lopressor] 25 mg PO BID 06/02/17 08/05/19 Rosuvastatin Calcium [Crestor] 5 mg PO HS 06/02/17 08/05/19 amLODIPine [Norvasc] 5 mg PO BID 06/02/17 08/05/19 Fenofibrate Nanocrystallized 145 mg PO DAILY 10/30/17 08/05/19 [Fenofibrate] Albuterol Sulfate [Ventolin HFA] 1 - 2 puff INHALATION RT-Q6H PRN 12/29/18 08/05/19 Dextroamphetamine/Amphetamine 30 mg PO BID 12/29/18 08/05/19 [Adderall] Vascepa 1gm 2 gm PO BID 12/29/18 08/05/19 Acetaminophen with Codeine 1 tab PO Q4-6H PRN 08/05/19 08/05/19 [Tylenol with Codeine #4 Tablet] Aspirin EC [Ecotrin Low Dose] 81 mg PO DAILY 08/05/19 08/05/19 Chlorthalidone 25 mg PO DAILY 08/05/19 08/05/19 Cyclobenzaprine [Flexeril] 10 mg PO HS 08/05/19 08/05/19 Divalproex ER [Depakote ER] 500 mg PO BID 08/05/19 08/05/19 Previous Rx's Medication Instructions Recorded chlordiazePOXIDE HCl [Librium] 25 mg PO TID 14 Days cap 01/03/19 diphenhydrAMINE [Benadryl] 50 mg PO HS PRN 28 Days cap 01/03/19 Allergies Allergy/AdvReac Type Severity Reaction Status Date / Time haloperidol [From Haldol] Allergy Anaphylaxis Verified 12/31/18 19:20 Review of Systems ROS Statement: Those systems with pertinent positive or pertinent negative responses have been documented in the HPI. ROS Other: All systems not noted in ROS Statement are negative. Past Medical History Past Medical History: COPD, Hyperlipidemia, Hypertension, Osteoarthritis (OA) Additional Past Medical History / Comment(s): INFECTION OF LEFT SHOULDER History of Any Multi-Drug Resistant Organisms: None Reported Past Surgical History: Appendectomy, Joint Replacement, Orthopedic Surgery, Tonsillectomy Additional Past Surgical History / Comment(s): finger surgery, LEFT SHOULDER REPLACEMENT , IMPLANT REMOVED FROM LEFT SHOLDER, LEFT SHOULDER REPLACEMENT, TOTAL LEFT KNEE, REPAIR OF LEFT KNEE, Past Anesthesia/Blood Transfusion Reactions: Motion Sickness Past Psychological History: ADD/ADHD, Anxiety, Bipolar Smoking Status: Former smoker Past Alcohol Use History: None Reported Additional Past Alcohol Use History / Comment(s): STARTED SMOKING AT AGE 17 - SMOKED 1 PPD (TRYING TO QUIT ) pt quit smoking 6 months ago, chews every day now Past Drug Use History: None Reported - Past Family History Sister(s) Family Medical History: Cancer Course Vital Signs 08/05/19 08/05/19 08/05/19 10:42 11:55 12:55 Temperature 103 F H Pulse Rate 128 H 128 H 125 H Respiratory 41 H 24 24 Rate Blood Pressure 157/84 178/83 131/77 O2 Sat by Pulse 45 L 91 L 91 L Oximetry 08/05/19 13:00 Temperature Pulse Rate 125 H Respiratory 24 Rate Blood Pressure 131/77 O2 Sat by Pulse 91 L Oximetry Procedures - Intubation Sedative: Propofol (100) Paralytic: Rocuronium (70) Laryngoscope: fiber optic video scope Size: 3 Assist Device Used: fiber optic device ET Tube Size: 7.5 (22 at the lip) ET Tube Uncuffed: No Tube Secured Depth (cm): 22 Tube Secured Location: teeth Tube Placement Confirmation: visualized tube passing through cords Patient Tolerated Procedure: well Intubation Complications: none Medical Decision Making - Lab Data Result diagrams: 08/05/19 11:00 08/05/19 12:30 Lab Results 08/05/19 08/05/19 08/05/19 Range/Units 11:00 11:00 11:08 WBC 4.9 (3.8-10.6) k/uL RBC 5.06 (4.30-5.90) m/uL Hgb 13.2 (13.0-17.5) gm/dL Hct 43.0 (39.0-53.0) % MCV 85.0 (80.0-100.0) fL MCH 26.1 (25.0-35.0) pg MCHC 30.7 L (31.0-37.0) g/dL RDW 16.5 H (11.5-15.5) % Plt Count 373 (150-450) k/uL Neutrophils % (Manual) 33 % Band Neutrophils % 26 % Lymphocytes % (Manual) 12 % Monocytes % (Manual) 12 % Basophils % (Manual) 1 % Metamyelocytes % 16 % Myelocytes % 2 % Neutrophils # (Manual) 2.80 (1.3-7.7) k/uL Lymphocytes # (Manual) 0.59 L (1.0-4.8) k/uL Monocytes # (Manual) 0.59 (0-1.0) k/uL Basophils # (Manual) 0.05 (0-0.2) k/uL Metamyelocytes # (Man) 0.78 H (0) k/uL Myelocytes # (Manual) 0.10 H (0) k/uL Nucleated RBCs 0 (0-0) /100 WBC Manual Slide Review Performed Toxic Granulation Present Hypochromasia Slight Anisocytosis Slight PT 13.4 H (9.0-12.0) sec INR 1.3 H (<1.2) APTT 24.3 (22.0-30.0) sec Sample Site rbach ABG pH 7.17 L* (7.35-7.45) ABG pCO2 66 H (35-45) mmHg ABG pO2 45 L* (83-108) mmHg ABG HCO3 24 (21-25) mmol/L ABG Total CO2 26 H (19-24) mmol/L ABG O2 Saturation 63.0 L (94-97) % ABG Base Excess -4.3 mmol/L Ulises Test Yes FiO2 100 % Sodium (137-145) mmol/L Potassium (3.5-5.1) mmol/L Chloride (98-107) mmol/L Carbon Dioxide (22-30) mmol/L Anion Gap mmol/L BUN (9-20) mg/dL Creatinine (0.66-1.25) mg/dL Est GFR (CKD-EPI)AfAm (>60 ml/min/1.73 sqM) Est GFR (CKD-EPI)NonAf (>60 ml/min/1.73 sqM) Glucose (74-99) mg/dL POC Glucose (mg/dL) (75-99) mg/dL POC Glu Mandrel Puller ID Plasma Lactic Acid Héctor (0.7-2.0) mmol/L Calcium (8.4-10.2) mg/dL Magnesium (1.6-2.3) mg/dL Total Bilirubin (0.2-1.3) mg/dL ALT (4-49) U/L Alkaline Phosphatase (38-126) U/L Ammonia (<30) umol/L Total Protein (6.3-8.2) g/dL Albumin (3.5-5.0) g/dL Urine Color Urine Appearance (Clear) Urine pH (5.0-8.0) Ur Specific [place] (1.001-1.035) Urine Protein (Negative) Urine Glucose (UA) (Negative) Urine Ketones (Negative) Urine Blood (Negative) Urine Nitrite (Negative) Urine Bilirubin (Negative) Urine Urobilinogen (<2.0) mg/dL Ur Leukocyte Esterase (Negative) Urine RBC (0-5) /hpf Urine WBC (0-5) /hpf Ur Squamous Epith Cells (0-4) /hpf Urine Bacteria (None) /hpf Hyaline Casts (0-2) /lpf Urine Mucus (None) /hpf Salicylates mg/dL Acetaminophen ug/mL Serum Alcohol mg/dL Influenza Type A RNA (Not Detectd) Influenza Type B (PCR) (Not Detectd) Blood Type Blood Type Confirm Blood Type Recheck Bld Type Recheck Status Antibody Screen Spec Expiration Date 08/05/19 08/05/19 08/05/19 Range/Units 11:18 11:20 12:24 WBC (3.8-10.6) k/uL RBC (4.30-5.90) m/uL Hgb (13.0-17.5) gm/dL Hct (39.0-53.0) % MCV (80.0-100.0) fL MCH (25.0-35.0) pg MCHC (31.0-37.0) g/dL RDW (11.5-15.5) % Plt Count (150-450) k/uL Neutrophils % (Manual) % Band Neutrophils % % Lymphocytes % (Manual) % Monocytes % (Manual) % Basophils % (Manual) % Metamyelocytes % % Myelocytes % % Neutrophils # (Manual) (1.3-7.7) k/uL Lymphocytes # (Manual) (1.0-4.8) k/uL Monocytes # (Manual) (0-1.0) k/uL Basophils # (Manual) (0-0.2) k/uL Metamyelocytes # (Man) (0) k/uL Myelocytes # (Manual) (0) k/uL Nucleated RBCs (0-0) /100 WBC Manual Slide Review Toxic Granulation Hypochromasia Anisocytosis PT (9.0-12.0) sec INR (<1.2) APTT (22.0-30.0) sec Sample Site ABG pH (7.35-7.45) ABG pCO2 (35-45) mmHg ABG pO2 (83-108) mmHg ABG HCO3 (21-25) mmol/L ABG Total CO2 (19-24) mmol/L ABG O2 Saturation (94-97) % ABG Base Excess mmol/L Ulises Test FiO2 % Sodium (137-145) mmol/L Potassium (3.5-5.1) mmol/L Chloride (98-107) mmol/L Carbon Dioxide (22-30) mmol/L Anion Gap mmol/L BUN (9-20) mg/dL Creatinine (0.66-1.25) mg/dL Est GFR (CKD-EPI)AfAm (>60 ml/min/1.73 sqM) Est GFR (CKD-EPI)NonAf (>60 ml/min/1.73 sqM) Glucose (74-99) mg/dL POC Glucose (mg/dL) 140 H (75-99) mg/dL POC Glu Mandrel Puller [place] Plasma Lactic Acid Héctor (0.7-2.0) mmol/L Calcium (8.4-10.2) mg/dL Magnesium (1.6-2.3) mg/dL Total Bilirubin (0.2-1.3) mg/dL ALT (4-49) U/L Alkaline Phosphatase (38-126) U/L Ammonia (<30) umol/L Total Protein (6.3-8.2) g/dL Albumin (3.5-5.0) g/dL Urine Color Yellow Urine Appearance Cloudy (Clear) Urine pH 5.5 (5.0-8.0) Ur Specific [place] 1.023 (1.001-1.035) Urine Protein Trace H (Negative) Urine Glucose (UA) Negative (Negative) Urine Ketones Trace H (Negative) Urine Blood Negative (Negative) Urine Nitrite Negative (Negative) Urine Bilirubin Negative (Negative) Urine Urobilinogen 2.0 (<2.0) mg/dL Ur Leukocyte Esterase Negative (Negative) Urine RBC <1 (0-5) /hpf Urine WBC 7 H (0-5) /hpf Ur Squamous Epith Cells <1 (0-4) /hpf Urine Bacteria Rare H (None) /hpf Hyaline Casts 19 H (0-2) /lpf Urine Mucus Occasional H (None) /hpf Salicylates mg/dL Acetaminophen ug/mL Serum Alcohol mg/dL Influenza Type A RNA Not Detected (Not Detectd) Influenza Type B (PCR) Not Detected (Not Detectd) Blood Type Blood Type Confirm Blood Type Recheck Bld Type Recheck Status Antibody Screen Spec Expiration Date 08/05/19 08/05/19 08/05/19 Range/Units 12:30 12:30 12:30 WBC (3.8-10.6) k/uL RBC (4.30-5.90) m/uL Hgb (13.0-17.5) gm/dL Hct (39.0-53.0) % MCV (80.0-100.0) fL MCH (25.0-35.0) pg MCHC (31.0-37.0) g/dL RDW (11.5-15.5) % Plt Count (150-450) k/uL Neutrophils % (Manual) % Band Neutrophils % % Lymphocytes % (Manual) % Monocytes % (Manual) % Basophils % (Manual) % Metamyelocytes % % Myelocytes % % Neutrophils # (Manual) (1.3-7.7) k/uL Lymphocytes # (Manual) (1.0-4.8) k/uL Monocytes # (Manual) (0-1.0) k/uL Basophils # (Manual) (0-0.2) k/uL Metamyelocytes # (Man) (0) k/uL Myelocytes # (Manual) (0) k/uL Nucleated RBCs (0-0) /100 WBC Manual Slide Review Toxic Granulation Hypochromasia Anisocytosis PT (9.0-12.0) sec INR (<1.2) APTT (22.0-30.0) sec Sample Site ABG pH (7.35-7.45) ABG pCO2 (35-45) mmHg ABG pO2 (83-108) mmHg ABG HCO3 (21-25) mmol/L ABG Total CO2 (19-24) mmol/L ABG O2 Saturation (94-97) % ABG Base Excess mmol/L Ulises Test FiO2 % Sodium 141 (137-145) mmol/L Potassium 4.3 (3.5-5.1) mmol/L Chloride 102 (98-107) mmol/L Carbon Dioxide 24 (22-30) mmol/L Anion Gap 15 mmol/L BUN 69 H (9-20) mg/dL Creatinine 1.65 H (0.66-1.25) mg/dL Est GFR (CKD-EPI)AfAm 51 (>60 ml/min/1.73 sqM) Est GFR (CKD-EPI)NonAf 44 (>60 ml/min/1.73 sqM) Glucose 145 H (74-99) mg/dL POC Glucose (mg/dL) (75-99) mg/dL POC Glu Mandrel Puller ID Plasma Lactic Acid Héctor 3.1 H* (0.7-2.0) mmol/L Calcium 7.9 L (8.4-10.2) mg/dL Magnesium 2.2 (1.6-2.3) mg/dL Total Bilirubin 0.5 (0.2-1.3) mg/dL ALT 1106 H (4-49) U/L Alkaline Phosphatase 83 (38-126) U/L Ammonia 146 H (<30) umol/L Total Protein 7.1 (6.3-8.2) g/dL Albumin 4.1 (3.5-5.0) g/dL Urine Color Urine Appearance (Clear) Urine pH (5.0-8.0) Ur Specific [place] (1.001-1.035) Urine Protein (Negative) Urine Glucose (UA) (Negative) Urine Ketones (Negative) Urine Blood (Negative) Urine Nitrite (Negative) Urine Bilirubin (Negative) Urine Urobilinogen (<2.0) mg/dL Ur Leukocyte Esterase (Negative) Urine RBC (0-5) /hpf Urine WBC (0-5) /hpf Ur Squamous Epith Cells (0-4) /hpf Urine Bacteria (None) /hpf Hyaline Casts (0-2) /lpf Urine Mucus (None) /hpf Salicylates 1.1 mg/dL Acetaminophen <10.0 ug/mL Serum Alcohol <10 mg/dL Influenza Type A RNA (Not Detectd) Influenza Type B (PCR) (Not Detectd) Blood Type A Positive Blood Type Confirm Blood Type Recheck No Previous Record Bld Type Recheck Status CABO Indicated Antibody Screen NEGATIVE Spec Expiration Date 08/08/2019 - 232908/05/19 Range/Units 12:35 WBC (3.8-10.6) k/uL RBC (4.30-5.90) m/uL Hgb (13.0-17.5) gm/dL Hct (39.0-53.0) % MCV (80.0-100.0) fL MCH (25.0-35.0) pg MCHC (31.0-37.0) g/dL RDW (11.5-15.5) % Plt Count (150-450) k/uL Neutrophils % (Manual) % Band Neutrophils % % Lymphocytes % (Manual) % Monocytes % (Manual) % Basophils % (Manual) % Metamyelocytes % % Myelocytes % % Neutrophils # (Manual) (1.3-7.7) k/uL Lymphocytes # (Manual) (1.0-4.8) k/uL Monocytes # (Manual) (0-1.0) k/uL Basophils # (Manual) (0-0.2) k/uL Metamyelocytes # (Man) (0) k/uL Myelocytes # (Manual) (0) k/uL Nucleated RBCs (0-0) /100 WBC Manual Slide Review Toxic Granulation Hypochromasia Anisocytosis PT (9.0-12.0) sec INR (<1.2) APTT (22.0-30.0) sec Sample Site ABG pH (7.35-7.45) ABG pCO2 (35-45) mmHg ABG pO2 (83-108) mmHg ABG HCO3 (21-25) mmol/L ABG Total CO2 (19-24) mmol/L ABG O2 Saturation (94-97) % ABG Base Excess mmol/L Ulises Test FiO2 % Sodium (137-145) mmol/L Potassium (3.5-5.1) mmol/L Chloride (98-107) mmol/L Carbon Dioxide (22-30) mmol/L Anion Gap mmol/L BUN (9-20) mg/dL Creatinine (0.66-1.25) mg/dL Est GFR (CKD-EPI)AfAm (>60 ml/min/1.73 sqM) Est GFR (CKD-EPI)NonAf (>60 ml/min/1.73 sqM) Glucose (74-99) mg/dL POC Glucose (mg/dL) (75-99) mg/dL POC Glu Mandrel Puller ID Plasma Lactic Acid Héctor (0.7-2.0) mmol/L Calcium (8.4-10.2) mg/dL Magnesium (1.6-2.3) mg/dL Total Bilirubin (0.2-1.3) mg/dL ALT (4-49) U/L Alkaline Phosphatase (38-126) U/L Ammonia (<30) umol/L Total Protein (6.3-8.2) g/dL Albumin (3.5-5.0) g/dL Urine Color Urine Appearance (Clear) Urine pH (5.0-8.0) Ur Specific [place] (1.001-1.035) Urine Protein (Negative) Urine Glucose (UA) (Negative) Urine Ketones (Negative) Urine Blood (Negative) Urine Nitrite (Negative) Urine Bilirubin (Negative) Urine Urobilinogen (<2.0) mg/dL Ur Leukocyte Esterase (Negative) Urine RBC (0-5) /hpf Urine WBC (0-5) /hpf Ur Squamous Epith Cells (0-4) /hpf Urine Bacteria (None) /hpf Hyaline Casts (0-2) /lpf Urine Mucus (None) /hpf Salicylates mg/dL Acetaminophen ug/mL Serum Alcohol mg/dL Influenza Type A RNA (Not Detectd) Influenza Type B (PCR) (Not Detectd) Blood Type Blood Type Confirm A Positive Blood Type Recheck Bld Type Recheck Status Antibody Screen Spec Expiration Date Critical Care Time Critical Care Time: Yes Total Critical Care Time: 76 Disposition Clinical Impression: Respiratory failure Disposition: ADMITTED IP TO THIS HOSP Condition: Critical Referrals: None,Stated [Primary Care Provider] - 1-2 days Decision Time: 13:50
[2019-08-05 11:11] LABS: ABG Base Excess -4.3 mmol/L; ABG HCO3 24 mmol/L (21-25); ABG PCO2 66 mmHg (35-45); ABG TCO2 26 mmol/L (19-24); Allen Test Performed? Yes
[2019-08-05 11:26] LABS: ABG PH 7.17 (7.35-7.45); ABG PO2 45 mmHg (83-108)
[2019-08-05 11:42] LABS: Anisocytosis Slight; HGB 13.2 gm/dL (13.0-17.5); Hypochromasia Slight; MCH 26.1 pg (25.0-35.0); MCHC 30.7 g/dL (31.0-37.0); Mean Platelet Volume 7.4; Platelet Count 373 k/uL (150-450); RBC 5.06 m/uL (4.30-5.90); RDW 16.5 % (11.5-15.5); WBC 4.9 k/uL (3.8-10.6)
[2019-08-05 11:59] LABS: INR 1.3 (<1.2); Partial Thromboplastin Time 24.3 sec (22.0-30.0); Prothrombin Time 13.4 sec (9.0-12.0)
[2019-08-05 12:11] LABS: Band Neutrophils % 26 %; Basophils # (M) 0.05 k/uL (0-0.2); Lymphocytes # (M) 0.59 k/uL (1.0-4.8); Metamyelocytes # (M) 0.78 k/uL (0); Metamyelocytes % 16 %; Monocytes # (M) 0.59 k/uL (0-1.0); Myelocytes % 2 %; Neutrophils % (M) 33 %; Nucleated Red Blood Cells 0 /100 WBC (0-0); Total Cells Counted 200
[2019-08-05 12:12] LABS: Toxic Granulation Present
[2019-08-05] MEDS ORDERED: VANCOMYCIN 1,500 MG in SODIUM CHLORIDE 0.9% 250 ML IVPB ONE (12:30)
[2019-08-05 12:35] LABS: Appearance,Urine Cloudy (Clear); Bacteria,Urine Rare /hpf; Bilirubin,Urine Negative (Negative); Blood,Urine Negative (Negative); Color,Urine Yellow; Glucose,Urine (UA) Negative (Negative); Hyaline Casts,Urine 19 /lpf (0-2); Ketones,Urine Trace (Negative); Leukocyte Esterase,Urine Negative (Negative); Mucus,Urine Occasional /hpf; Nitrite,Urine Negative (Negative); PH, Urine 5.5 (5.0-8.0); Protein,Urine Trace (Negative); RBC,Urine <1 /hpf (0-5); Specific Gravity,Urine 1.023 (1.001-1.035); Squamous Epithelial Cell,Urine <1 /hpf (0-4); WBC,Urine 7 /hpf (0-5)
[2019-08-05 12:37] LABS: Glucose,Whole Blood 140 mg/dL (75-99)
[2019-08-05 12:55] LABS: Acetaminophen <10.0 ug/mL; African American GFR (CKD) 51 (>60 ml/min/1.73 sqM); Albumin 4.1 g/dL (3.5-5.0); Alcohol <10 mg/dL; Alkaline Phosphatase 83 U/L (38-126); Anion Gap 15 mmol/L; Blood Urea Nitrogen 69 mg/dL (9-20); Calcium 7.9 mg/dL (8.4-10.2); Carbon Dioxide 24 mmol/L (22-30); Chloride 102 mmol/L (98-107); Glucose 145 mg/dL (74-99); Magnesium 2.2 mg/dL (1.6-2.3); Non-African American GFR(CKD) 44 (>60 ml/min/1.73 sqM); Potassium 4.3 mmol/L (3.5-5.1); Salicylate 1.1 mg/dL; Sodium 141 mmol/L (137-145); Total Bilirubin 0.5 mg/dL (0.2-1.3); Total Protein 7.1 g/dL (6.3-8.2)
--- NOTE | 2019-08-05 13:05 | XR ---
EXAMINATION TYPE: XR chest 1V confirm line [facility] DATE OF EXAM: 08/05/2019 COMPARISON: 12/30/2018 HISTORY: ET tube placement TECHNIQUE: Single frontal view of the chest is obtained. FINDINGS: ET tube approximately 3.7 cm above the mario. NG tube seen extending in left abdomen like ly within the gastric fundus. Bilateral infiltrate and coarsened interstitium noted. Prosthetic left shoulder. No pneumothorax. Right upper lobe area of consolidation noted. Tiny right-sided effusion farias spected. No pneumothorax. IMPRESSION: 1. ET and NG tube appear to be in good position. 2. Bilateral airspace disease correlate for pneumonia and interstitial pneumonitis.
[2019-08-05 13:19] LABS: Lactic Acid, Venous 3.1 mmol/L (0.7-2.0)
[2019-08-05 13:25] LABS: ALT 1106 U/L (4-49)
[2019-08-05] MEDS ORDERED: LACTULOSE 20 GM/30 ML CUP PO ONE (13:38)
[2019-08-05] MEDS ORDERED: ACETAMINOPHEN TAB 500 MG TAB PO STA (13:39)
[2019-08-05] MEDS ORDERED: DEXAMETHASONE SOD PHOSPHATE 10 MG/ML 1 ML VIAL IV STA (13:44)
[2019-08-05] MEDS ORDERED: NALOXONE 0.4 MG/ML 1 ML VIAL IV PRN (13:46)
[2019-08-05] MEDS ORDERED: ACETAMINOPHEN SUPPOSITORY 650 MG SUPP RECTAL PRN (13:46)
[2019-08-05] MEDS ORDERED: SODIUM CHLORIDE 0.9% 1,000 ML IV SCH (14:00)
[2019-08-05 14:03] LABS: AST 2690 U/L (17-59); C Reactive Protein 544.2 mg/L (<10.0)
[2019-08-05] MEDS ORDERED: ENOXAPARIN 40 MG/0.4 ML SYRINGE SQ STA (14:05)
[2019-08-05] MEDS ORDERED: propofoL 100 ML IV ONE (15:11)
--- NOTE | 2019-08-05 15:44 | P.CNPUL ---
History of Present Illness Consult date: 08/05/19 Reason for consult: dyspnea, hypoxemia, pneumonia History of present illness: 62-year-old male patient who was brought into the emergency department today unresponsive and profoundly hypoxic. The patient was in acute hypoxic respiratory failure. Initial pulse ox was in the mid 30s. Apparently he was not also communicating or responding. He was apparently awake and alert on the morning prior to him coming to the hospital according to the landlord. The landlord noted that the patient was appearing ill and called EMS. Upon EMS arrival, the patient was found to be obtunded. He had a fever of 10 1F. He was found to be hypoxic, brought into the emergency room he was found to be tachycardic and hypoxic with was placed on supplemental oxygen without any benefit and ultimately the patient was intubated and placed on a mechanical vent ilator. COVID 19 is suspected. The patient was placed on the opposite isolation. The patient had the appropriate nasal swabs. Chest x-ray showed bilateral airspace disease consistent with pneumonia in addition to interstitial pneumonitis. ET tube was around 3.7 cm above the mario. NG tube was extending into the left abdomen. There was a right upper lobe consolidation noted and a tiny right-sided pleural effusion. No evidence of any pneumothorax. There was bilateral infiltrates and coarse interstitium and a prosthetic left shoulder. The patient has a white cell count of 4.9. He had some lymphopenia. His platelet counts is no within normal limits. The blood gases was done on 100% nonrebreather showed a pH of 7.17 with a pCO2 of 66 and pO2 of 45. The patient also had an acute kidney injury with a creatinine of 1.65. Epigastric level was at 3.1. The ALT is at 1106 with an ammonia level of 146 and a bilirubin of 0.5 and an albumin of 4.1. The serum alcohol was negative and the patient has negative salicylates and acetaminophen. Influenza screen has been negative. Covid 19 analysis still pending for now. This patient lives with a sister in a house and he collects Social Security disability. He has had issues with mental health and the patient has been dealing with bipolar disorder and chronic insomnia of many years duration. He has also chronic anxiety disorder. No history of any previous suicidal ideation or intent. No delusions or hallucinations based on recent psychiatric evaluation that was in the hospital. Review of Systems ROS unobtainable: due to endotracheal tube Past Medical History Past Medical History: COPD, Hyperlipidemia, Hypertension, Osteoarthritis (OA) Additional Past Medical History / Comment(s): History of bipolar disorder, anxi ety disorder, history of infection of the left shoulder and the patient has a total left shoulder replacement History of Any Multi-Drug Resistant Organisms: None Reported Past Surgical History: Appendectomy, Joint Replacement, Orthopedic Surgery, Ton sillectomy Additional Past Surgical History / Comment(s): finger surgery, LEFT SHOULDER REPLACEMENT , IMPLANT REMOVED FROM LEFT SHOLDER, LEFT SHOULDER REPLACEMENT, TOTAL LEFT KNEE, REPAIR OF LEFT KNEE, Past Anesthesia/Blood Transfusion Reactions: Motion Sickness Past Psychological History: ADD/ADHD, Anxiety, Bipolar Smoking Status: Former smoker Past Alcohol Use History: None Reported Additional Past Alcohol Use History / Comment(s): STARTED SMOKING AT AGE 17 - SMOKED 1 PPD (TRYING TO QUIT ) pt quit smoking 6 months ago, chews every day now Past Drug Use History: None Reported - Past Family History Sister(s) Family Medical History: Cancer Medications and Allergies Home Medications Medication Instructions Recorded Confirmed Type Metoprolol Tartrate [Lopressor] 25 mg PO BID 06/02/17 08/05/19 History Rosuvastatin Calcium [Crestor] 5 mg PO HS 06/02/17 08/05/19 History amLODIPine [Norvasc] 5 mg PO BID 06/02/17 08/05/19 History Fenofibrate Nanocrystallized 145 mg PO DAILY 10/30/17 08/05/19 History [Fenofibrate] Albuterol Sulfate [Ventolin HFA] 1 - 2 puff INHALATION RT-Q6H PRN 12/29/18 08/05/19 History Dextroamphetamine/Amphetamine 30 mg PO BID 12/29/18 08/05/19 History [Adderall] Vascepa 1gm 2 gm PO BID 12/29/18 08/05/19 History chlordiazePOXIDE HCl [Librium] 25 mg PO TID 14 Days cap 01/03/19 08/05/19 Rx diphenhydrAMINE [Benadryl] 50 mg PO HS PRN 28 Days cap 01/03/19 08/05/19 Rx Acetaminophen with Codeine 1 tab PO Q4-6H PRN 08/05/19 08/05/19 History [Tylenol with Codeine #4 Tablet] Aspirin EC [Ecotrin Low Dose] 81 mg PO DAILY 08/05/19 08/05/19 History Chlorthalidone 25 mg PO DAILY 08/05/19 08/05/19 History Cyclobenzaprine [Flexeril] 10 mg PO HS 08/05/19 08/05/19 History Divalproex ER [Depakote ER] 500 mg PO BID 08/05/19 08/05/19 History Allergies Allergy/AdvReac Type Severity Reaction Status Date / Time haloperidol [From Haldol] Allergy Anaphylaxis Verified 12/31/18 19:20 Physical Exam Vitals: Vital Signs Temp Pulse Resp BP Pulse Ox 08/05/19 13:00 125 H 24 131/77 91 L 08/05/19 12:55 125 H 24 131/77 91 L 08/05/19 11:55 128 H 24 178/83 91 L 08/05/19 10:42 103 F H 128 H 41 H 157/84 45 L Intake and Output 08/04/19 08/05/19 08/05/19 22:59 06:59 14:59 Other: Weight 90.718 kg Gen. appearance, comfortable sedated nonacute distress intubated on a mechanical ventilator. Orogastric and orotracheal tube are both in place Head exam was generally normal. There was no scleral icterus or corneal arcus. Mucous membranes were moist. Neck was supple and without jugular venous distension, thyromegaly, or carotid bruits. Carotids were easily palpable bilaterally. There was no adenopathy. Lungs were clear to auscultation and percussion, and with normal diaphragmatic excursion. No wheezes or rales were noted. Cardiac exam revealed the PMI to be normally situated and sized. The rhythm was regular and no extrasystoles were noted during several minutes of auscultation. The first and second heart sounds were normal and physiologic splitting of the second heart sound was noted. There were no murmurs, rubs, clicks, or gallops. Abdominal exam revealed normal bowel sounds. The abdomen was soft, non-tender, and without masses, organomegaly, or appreciable enlargement of the abdominal ao rta. Examination of the extremities revealed easily palpable radial, femoral and pedal pulses. There was no cyanosis, clubbing or edema. Examination of the skin revealed no evidence of significant rashes, suspicious appearing nevi or other concerning lesions. Neurologically the patient sedated, comfortable no acute distress. Results - Laboratory Findings CBC and BMP: 08/05/19 11:00 08/05/19 12:30 ABG WBC 4.9 k/uL (3.8-10.6) 08/05/19 11:00 RBC 5.06 m/uL (4.30-5.90) 08/05/19 11:00 Hgb 13.2 gm/dL (13.0-17.5) 08/05/19 11:00 Hct 43.0 % (39.0-53.0) 08/05/19 11:00 MCV 85.0 fL (80.0-100.0) 08/05/19 11:00 MCH 26.1 pg (25.0-35.0) 08/05/19 11:00 MCHC 30.7 g/dL (31.0-37.0) L 08/05/19 11:00 RDW 16.5 % (11.5-15.5) H 08/05/19 11:00 Plt Count 373 k/uL (150-450) 08/05/19 11:00 Neutrophils % (Manual) 33 % 08/05/19 11:00 Band Neutrophils % 26 % 08/05/19 11:00 Lymphocytes % (Manual) 12 % 08/05/19 11:00 Monocytes % (Manual) 12 % 08/05/19 11:00 Basophils % (Manual) 1 % 08/05/19 11:00 Metamyelocytes % 16 % 08/05/19 11:00 Myelocytes % 2 % 08/05/19 11:00 Neutrophils # (Manual) 2.80 k/uL (1.3-7.7) 08/05/19 11:00 Lymphocytes # (Manual) 0.59 k/uL (1.0-4.8) L 08/05/19 11:00 Monocytes # (Manual) 0.59 k/uL (0-1.0) 08/05/19 11:00 Basophils # (Manual) 0.05 k/uL (0-0.2) 08/05/19 11:00 Metamyelocytes # (Man) 0.78 k/uL (0) H 08/05/19 11:00 Myelocytes # (Manual) 0.10 k/uL (0) H 08/05/19 11:00 Nucleated RBCs 0 /100 WBC (0-0) 08/05/19 11:00 Manual Slide Review Performed 08/05/19 11:00 Toxic Granulation Present 08/05/19 11:00 Hypochromasia Slight 08/05/19 11:00 Anisocytosis Slight 08/05/19 11:00 PT 13.4 sec (9.0-12.0) H 08/05/19 11:00 INR 1.3 (<1.2) H 08/05/19 11:00 APTT 24.3 sec (22.0-30.0) 08/05/19 11:00 Sample Site rbach 08/05/19 11:08 ABG pH 7.17 (7.35-7.45) L* 08/05/19 11:08 ABG pCO2 66 mmHg (35-45) H 08/05/19 11:08 ABG pO2 45 mmHg (83-108) L* 08/05/19 11:08 ABG HCO3 24 mmol/L (21-25) 08/05/19 11:08 ABG Total CO2 26 mmol/L (19-24) H 08/05/19 11:08 ABG O2 Saturation 63.0 % (94-97) L 08/05/19 11:08 ABG Base Excess -4.3 mmol/L 08/05/19 11:08 Ulises Test Yes 08/05/19 11:08 FiO2 100 % 08/05/19 11:08 Sodium 141 mmol/L (137-145) 08/05/19 12:30 Potassium 4.3 mmol/L (3.5-5.1) 08/05/19 12:30 Chloride 102 mmol/L (98-107) 08/05/19 12:30 Carbon Dioxide 24 mmol/L (22-30) 08/05/19 12:30 Anion Gap 15 mmol/L 08/05/19 12:30 BUN 69 mg/dL (9-20) H 08/05/19 12:30 Creatinine 1.65 mg/dL (0.66-1.25) H 08/05/19 12:30 Est GFR (CKD-EPI)AfAm 51 (>60 ml/min/1.73 sqM) 08/05/19 12:30 Est GFR (CKD-EPI)NonAf 44 (>60 ml/min/1.73 sqM) 08/05/19 12:30 Glucose 145 mg/dL (74-99) H 08/05/19 12:30 POC Glucose (mg/dL) 140 mg/dL (75-99) H 08/05/19 12:24 POC Glu [employer] ID Pipe Marquez 08/05/19 12:24 Plasma Lactic Acid Héctor 3.1 mmol/L (0.7-2.0) H* 08/05/19 12:30 Calcium 7.9 mg/dL (8.4-10.2) L 08/05/19 12:30 Magnesium 2.2 mg/dL (1.6-2.3) 08/05/19 12:30 Total Bilirubin 0.5 mg/dL (0.2-1.3) 08/05/19 12:30 ALT 1106 U/L (4-49) H 08/05/19 12:30 Alkaline Phosphatase 83 U/L (38-126) 08/05/19 12:30 Ammonia 146 umol/L (<30) H 08/05/19 12:30 Total Protein 7.1 g/dL (6.3-8.2) 08/05/19 12:30 Albumin 4.1 g/dL (3.5-5.0) 08/05/19 12:30 Urine Color Yellow 08/05/19 11:18 Urine Appearance Cloudy (Clear) 08/05/19 11:18 Urine pH 5.5 (5.0-8.0) 08/05/19 11:18 Ur Specific [place] 1.023 (1.001-1.035) 08/05/19 11:18 Urine Protein Trace (Negative) H 08/05/19 11:18 Urine Glucose (UA) Negative (Negative) 08/05/19 11:18 Urine Ketones Trace (Negative) H 08/05/19 11:18 Urine Blood Negative (Negative) 08/05/19 11:18 Urine Nitrite Negative (Negative) 08/05/19 11:18 Urine Bilirubin Negative (Negative) 08/05/19 11:18 Urine Urobilinogen 2.0 mg/dL (<2.0) 08/05/19 11:18 Ur Leukocyte Esterase Negative (Negative) 08/05/19 11:18 Urine RBC <1 /hpf (0-5) 08/05/19 11:18 Urine WBC 7 /hpf (0-5) H 08/05/19 11:18 Ur Squamous Epith Cells <1 /hpf (0-4) 08/05/19 11:18 Urine Bacteria Rare /hpf (None) H 08/05/19 11:18 Hyaline Casts 19 /lpf (0-2) H 08/05/19 11:18 Urine Mucus Occasional /hpf (None) H 08/05/19 11:18 Salicylates 1.1 mg/dL 08/05/19 12:30 Acetaminophen <10.0 ug/mL 08/05/19 12:30 Serum Alcohol <10 mg/dL 08/05/19 12:30 Influenza Type A RNA Not Detected (Not Detectd) 08/05/19 11:20 Influenza Type B (PCR) Not Detected (Not Detectd) 08/05/19 11:20 PT/INR, D-dimer PT 13.4 sec (9.0-12.0) H 08/05/19 11:00 INR 1.3 (<1.2) H 08/05/19 11:00 Abnormal lab findings: Abnormal Labs 08/05/19 08/05/19 08/05/19 11:00 11:00 11:08 MCHC 30.7 L RDW 16.5 H Lymphocytes # (Manual) 0.59 L Metamyelocytes # (Man) 0.78 H Myelocytes # (Manual) 0.10 H PT 13.4 H INR 1.3 H ABG pH 7.17 L* ABG pCO2 66 H ABG pO2 45 L* ABG Total CO2 26 H ABG O2 Saturation 63.0 L BUN Creatinine Glucose POC Glucose (mg/dL) Plasma Lactic Acid Héctor Calcium ALT Ammonia Urine Protein Urine Ketones Urine WBC Urine Bacteria Hyaline Casts Urine Mucus 08/05/19 08/05/19 08/05/19 11:18 12:24 12:30 MCHC RDW Lymphocytes # (Manual) Metamyelocytes # (Man) Myelocytes # (Manual) PT INR ABG pH ABG pCO2 ABG pO2 ABG Total CO2 ABG O2 Saturation BUN Creatinine Glucose POC Glucose (mg/dL) 140 H Plasma Lactic Acid Héctor 3.1 H* Calcium ALT Ammonia 146 H Urine Protein Trace H Urine Ketones Trace H Urine WBC 7 H Urine Bacteria Rare H Hyaline Casts 19 H Urine Mucus Occasional H 08/05/19 12:30 MCHC RDW Lymphocytes # (Manual) Metamyelocytes # (Man) Myelocytes # (Manual) PT INR ABG pH ABG pCO2 ABG pO2 ABG Total CO2 ABG O2 Saturation BUN 69 H Creatinine 1.65 H Glucose 145 H POC Glucose (mg/dL) Plasma Lactic Acid Héctor Calcium 7.9 L ALT 1106 H Ammonia Urine Protein Urine Ketones Urine WBC Urine Bacteria Hyaline Casts Urine Mucus - Diagnostic Findings Chest x-ray: image reviewed Assessment and Plan Plan: 1 acute hypoxic/hypercapnic respiratory failure with development of diffuse breath and pulmonary interstitial infiltrates in addition to areas of consolidation bilaterally. Consider Covid 19 related pneumonia. Patient was profoundly hypoxic and some of admission, currently intubated on a mechanical ventilator. 2 acute ventilator-dependent respiratory failure secondary to above 3 acute febrile illness secondary to above 4 acute kidney injury with a creatinine of 1.6 5 acute lactic acidosis 6 diminished level of consciousness and the patient came into the emergency unresponsive secondary to profound hypoxemia. The patient's blood gas showed a component of an acute hypoxemic and hypercapnic respiratory failure 7 chronic psychiatric disorder and a combination of chronic anxiety disorder, bipolar disorder and chronic insomnia 8 hyperlipidemia 9 hypertension 10 previous history of left shoulder replacement due to complications of an infection 11 transaminitis likely secondary to Covid infection Plan Admit this patient to the intensive care units Established a triple lumen catheter and arterial line catheter Repeat blood gases in the ICU Monitor lactic acid level Fluid resuscitation with 75 mL's of normal saline after being given 2 L bolus and the patient will have renal function being monitored in addition to the urine output. Keep the patient sedated with propofol Continue vent support and do the necessity vent changes based on the blood gases, atelectasis based on obesity plus mode with tidal volume of 450 with an FiO2 100% and a PEEP of 15 and the respiratory rate of 20 and awaiting a blood gas. Respiratory time was set at 1.0 seconds. The patient is currently on propofol. May need fentanyl for sedation. Awaiting follow-up blood gases. Check sputum Gram stain and culture Check Covid 19 nasopharyngeal swab Check ferritin, LDH, C-reactive protein and d-dimer is Put the patient IV Solu Medrol 40 minutes every 12 hours Put the patient on Lovenox 40 mg subcu every 24 hours Put the patient on IV cefepime as an empiric antibiotic coverage\check for calcitonin level We will need to gradually reintroduce his psychiatric medications including the Depakote and Librium IV Protonix for GI prophylaxis We'll continue to follow Time with Patient: Greater than 30
--- NOTE | 2019-08-05 15:48 | P.PCN ---
Date of Procedure: 08/05/19 Preoperative Diagnosis: Acute hypoxic respiratory failure, pneumonia Postoperative Diagnosis: Acute hypoxic respiratory failure, pneumonia Procedure(s) Performed: Insertion of a triple-lumen catheter, insertion of an arterial line catheter Anesthesia: local Surgeon: Kamilla So Estimated Blood Loss (ml): 0 Pathology: none sent Condition: critical Disposition: ICU Operative Findings: Indication: Hemodynamic monitoring. A time-out was completed verifying correct patient, procedure, site, positioning, and implant(s) or special equipment if applicable. Allens test was performed to ensure adequate perfusion. The patients right wrist or was prepped and draped in sterile fashion. 1% Lidocaine was used to anesthetize the area. An 18G Arrow arterial line was introduced into the radial artery. The catheter was threaded over the guide wire and the needle was removed with appropriate pulsatile blood return. Blood loss was minimal. The catheter was then sutured in place to the skin and a sterile dressing applied. Perfusion to the extremity distal to the point of catheter insertion was checked and found to be adequate. The patient tolerated the procedure well and there were no complications. Indication: Hemodynamic monitoring/Intravenous access. A time-out was completed verifying correct patient, procedure, site, positioning, and implant(s) or special equipment if applicable. The patient was placed in a dependent position appropriate for central line placement based on the vein to be cannulated. The patients left neck was prepped and draped in sterile fashion. 1% Lidocaine was used to anesthetize the surrounding skin area. A triple lumen 9F Cordis catheter was introduced into the left internal jugular vein using Seldinger technique. The catheter was threaded smoothly over the guide wire and appropriate blood return was obtained. Each lumen of the catheter was evacuated of air and flushed with sterile saline. The catheter was then sutured in place to the skin and a sterile dressing applied. Perfusion to the extremity distal to the point of catheter insertion was checked and found to be adequate. The patient tolerated the procedure well and there were no complications.
--- NOTE | 2019-08-05 16:05 | XR ---
EXAMINATION TYPE: XR chest 1V portable DATE OF EXAM: 08/05/2019 Comparison: 08/05/2019 Clinical History: 64-year-old male central line placement Findings: Reverse left shoulder arthroplasty. ET and NG tubes are satisfactory. Right IJ CVC tip at the caval a trial junction. Heart upper limits of normal in size. Perihilar, interstitial, and patchy opacities b ilaterally, relatively similar to prior. Chronic fracture deformity distal left clavicle. Impression: 1. Right IJ CVC tip at the cavoatrial junction. 2. Otherwise stable exam with bilateral perihilar, interstitial, and patchy opacities.
[2019-08-05] MEDS ORDERED: SODIUM CHLORIDE 0.9% 2,000 ML IV ONE (16:58)
[2019-08-05 16:59] LABS: ABG Base Excess -6.5 mmol/L; ABG HCO3 22 mmol/L (21-25); ABG Oxygen Saturation 94.7 % (94-97); ABG PCO2 57 mmHg (35-45); ABG PO2 98 mmHg (83-108); ABG TCO2 24 mmol/L (19-24); Allen Test Performed? Yes
[2019-08-05 17:01] LABS: ABG PH 7.19 (7.35-7.45)
[2019-08-05 17:21] LABS: INR 1.3 (<1.2); Prothrombin Time 12.9 sec (9.0-12.0)
--- NOTE | 2019-08-05 17:31 | HP ---
HISTORY AND PHYSICAL DATE OF SERVICE: 08/05/2019 CHIEF COMPLAINT: Hypoxia and as well as change in mental status. HISTORY OF PRESENT ILLNESS: This is a 64-year-old gentleman with a past medical history of multiple rib pain, COPD, hypertension, hyperlipidemia, history of DJD, history of bipolar anxiety, history of appendectomy, ADD, ADHD, was found to have some unresponsiveness and hypoxia today. The landlord called the EMS and EMS found the patient on 30% saturation, subsequently +50% after oxygen and because of the severe hypoxia, patient intubated mechanically and intubated in the ER itself. Currently, patient unable to give history, most of the history is taken from my discussion with staff and review of the chart at this time. The initial chest x-ray showed bilateral lesions suggestive of COVID pneumonia. The patient also had multiple laboratory abnormalities including acute severe respiratory acidosis, renal failure and elevated plasma lactic acid, elevated AST, ALT, elevated LDH, elevated C-reactive protein and influenza is negative. The patient admitted for further evaluation and treatment. The D-dimer was also elevated at 4.26. As mentioned earlier, patient mechanically and sedated and there is no history of trauma. PAST MEDICAL HISTORY: History of COPD, hypertension, hyperlipidemia, DJD, bipolar, anxiety, history of ADD, ADHD, history of nicotine dependence. MEDICATIONS: Prior to admission, home medications are: 1. Chlorthalidone 25 mg p.o. daily. 2. Aspirin 81 mg p.o. daily. 3. Tylenol 1 p.o. q.4 to 6 p.r.n. 4. Benadryl. 5. Librium 25 mg p.o. t.i.d. 6. Norvasc 5 mg p.o. b.i.d. 7. Bacopa 2 g p.o. b.i.d. 8. Crestor 5 mg p.o. q.h.s. 9. Metoprolol. 10.Lopressor 25 mg p.o. b.i.d. 11.Fenofibrate 145 mg p.o. daily. 12.Depakote ER 500 mg p.o. b.i.d. 13.Adderall 30 mg p.o. b.i.d. 14.Flexeril 10 mg q.h.s. 15.Albuterol 1 to 2 puffs q.6 p.r.n. ALLERGIES: HALDOL. FAMILY HISTORY: History of cancer in the family. SOCIAL HISTORY: Previous history of smoking. No history of alcohol or smoking currently. REVIEW OF SYSTEMS: Could not be taken, the patient mechanically intubated. Vent settings are noted. PHYSICAL EXAM: Pulse is 125, blood pressure 130/70, respiration 20, temperature is 103, pulse ox 100 percent on mechanical ventilation. HEENT: Conjunctivae normal, oral mucosa moist. NECK: No jugular venous distension. CARDIOVASCULAR SYSTEM: S1, S2, muffled. RESPIRATION: Bilateral scattered rhonchi, no crackles. ABDOMEN: Soft. Nervous system is mechanically intubated. SKIN: No ulcers, joints, no deforming arthropathy. LABS: WBC 4.9, hemoglobin 13.2, platelets are 373. INR is 1.3. D-dimer is 4.26. PH of 7.17, pCO2 is 66, PO2 is 45. Sodium 140, potassium 4.2, creatinine is 1.65 and lactic acid 3.1, calcium is 7.9, AST is 2690, ALT is 1106, LDH is 7884, troponin 0.444. C- reactive protein 45, 44.2. UA noted. ASSESSMENT: 1. Acute bilateral COVID-19 interstitial pneumonia with acute hypoxic hypercapnic respiratory failure on mechanical ventilation with possible sepsis present on admission. 2. Elevated AST, ALT possibly secondary to COVID-19. 3. Increased creatinine with acute renal failure, possibly prerenal acute tubular necrosis. 4. Hyperammonemia. 5. Elevated LDH. 6. History of chronic obstructive pulmonary disease. 7. Hypertension. 8. Hyperlipidemia. 9. history of DJD. 10.history of bipolar, anxiety disorder. 11.History of left shoulder infection, replacement. 12.history of ADD, ADHD. 13.Remote history of nicotine dependence. 14.FULL CODE. RECOMMENDATION: In this 64-year-old gentleman who presented with multiple complex medical issues, will monitor the patient closely. COVID-19 testing is already elevated, but we will continue the mechanical ventilation and continue with COVID protocol. Will follow closely with Dr. So and Infectious Disease. Possibility that and gram- negative severe tract will be investigated, IL 60 is being ordered. Will obtain cultures. Repeat labs. The chest x-ray was reviewed personally by me. Otherwise, will manage fluid balance closely. Will also initiate Lovenox at the therapeutic dosage. Otherwise, I would also recommend Pepcid and will continue to monitor. Overall prognosis extremely guarded. Further recommendations to follow. As mentioned earlier, will await further COVID-19 testing. MMODL / IJN: [id number] / MTDD
[2019-08-05] MEDS ORDERED: NOREPINEPHRIN 4 MG-0.9% NS PMX 4 MG/250 ML ML IV ONE (18:24)
[2019-08-05] MEDS ORDERED: SODIUM CHLORIDE 0.9% 1,000 ML IV ONE (18:44)
[2019-08-05] MEDS: NOREPINEPHRINE 4 MG in SODIUM CHLORIDE 0.9% 250 ML IV SCH (19:30)
[2019-08-05 20:32] LABS: Glucose,Whole Blood 110 mg/dL (75-99)
[2019-08-05] MEDS: amLODIPine 5 MG TAB PO SCH (20:38)
[2019-08-05] MEDS: DIVALPROEX ER 500 MG TAB.ER.24H PO SCH (20:40)
[2019-08-05] MEDS: METOPROLOL TARTRATE 25 MG TAB PO SCH (20:41)
[2019-08-05] MEDS: methylPREDNISolone SOD SUCCI 40 MG/ML 1 ML VIAL IV SCH (20:47)
[2019-08-05] MEDS: CHLORHEXIDINE GLUCONATE 15 ML CUP MUCOUS MEM SCH (20:47)
[2019-08-05] MEDS: LACTULOSE 20 GM/30 ML CUP PO SCH (20:47)
[2019-08-05] MEDS: CEFEPIME 2 GM in SODIUM CHLORIDE 0.9% 100 ML IVPB SCH (20:48)
[2019-08-05] MEDS: FAMOTIDINE 20 MG/2 ML VIAL IV SCH (20:52)
[2019-08-05] MEDS ORDERED: ENOXAPARIN 80 MG/0.8 ML SYRINGE SQ SCH (21:00)
[2019-08-05] MEDS ORDERED: ENOXAPARIN 100 MG/ML SYRINGE SQ SCH (21:00)
[2019-08-06] MEDS ORDERED: NOREPINEPHRIN 4 MG-0.9% NS PMX 4 MG/250 ML ML IV ONE (02:00)
[2019-08-06] MEDS: NOREPINEPHRINE 4 MG in SODIUM CHLORIDE 0.9% 250 ML IV SCH ×2 (04:00→12:19)
[2019-08-06 04:18] LABS: ABG Base Excess -10.4 mmol/L; ABG HCO3 19 mmol/L (21-25); ABG Oxygen Saturation 98.4 % (94-97); ABG PCO2 58 mmHg (35-45); ABG PO2 187 mmHg (83-108); ABG TCO2 21 mmol/L (19-24)
[2019-08-06 04:33] LABS: ABG PH 7.12 (7.35-7.45); Allen Test Performed? no
[2019-08-06 04:45] LABS: Ferritin 2732.3 ng/mL (22.0-322.0)
[2019-08-06 04:52] LABS: Anisocytosis Slight; HCT 42.1 % (39.0-53.0); HGB 13.2 gm/dL (13.0-17.5); Hypochromasia Marked; MCH 27.7 pg (25.0-35.0); MCHC 31.2 g/dL (31.0-37.0); MCV 88.8 fL (80.0-100.0); Mean Platelet Volume 7.6; Platelet Count 257 k/uL (150-450); RBC 4.75 m/uL (4.30-5.90); RDW 16.3 % (11.5-15.5); WBC 7.3 k/uL (3.8-10.6)
[2019-08-06 04:53] LABS: Calcium 6.5 mg/dL (8.4-10.2); Magnesium 1.9 mg/dL (1.6-2.3); Potassium 5.4 mmol/L (3.5-5.1); Total Bilirubin 0.8 mg/dL (0.2-1.3); Total Protein 5.5 g/dL (6.3-8.2)
[2019-08-06 05:34] LABS: Lymphocytes # (M) 0.51 k/uL (1.0-4.8); Nucleated Red Blood Cells 0 /100 WBC (0-0)
[2019-08-06 05:40] LABS: Band Neutrophils % 31 %; Metamyelocytes % 26 %; Monocytes # (M) 0.51 k/uL (0-1.0); Myelocytes # (M) 0.73 k/uL (0); Myelocytes % 10 %; Neutrophils % (M) 20 %; Polychromasia Present; Target Cells Present; Total Cells Counted 200; Toxic Granulation Present
[2019-08-06] MEDS ORDERED: VANCOMYCIN 1,500 MG in SODIUM CHLORIDE 0.9% 250 ML IVPB SCH (06:00)
[2019-08-06] MEDS ORDERED: Magnesium Replacement Protocol 1 EACH MISC MISCELLANE PRN (06:17)
[2019-08-06] MEDS: MAGNESIUM SULFATE-D5W PMX 1 GM in DEXTROSE/WATER 1 100ML.BAG IVPB SCH ×2 (06:24→08:02)
[2019-08-06 07:15] LABS: Toxic Vacuolation Present
[2019-08-06 07:17] LABS: Poikilocytosis (M) Present
[2019-08-06] MEDS: amLODIPine 5 MG TAB PO SCH (07:47)
[2019-08-06] MEDS: DIVALPROEX ER 500 MG TAB.ER.24H PO SCH (07:48)
[2019-08-06] MEDS: METOPROLOL TARTRATE 25 MG TAB PO SCH ×2 (07:48→20:02)
[2019-08-06] MEDS: CEFEPIME 2 GM in SODIUM CHLORIDE 0.9% 100 ML IVPB SCH ×2 (08:00→20:02)
[2019-08-06] MEDS: LACTULOSE 20 GM/30 ML CUP PO SCH ×3 (08:03→20:02)
[2019-08-06] MEDS: CHLORHEXIDINE GLUCONATE 15 ML CUP MUCOUS MEM SCH ×2 (08:03→20:02)
[2019-08-06] MEDS: PANTOPRAZOLE 40 MG/10 ML VIAL IV SCH (08:03)
[2019-08-06] MEDS: methylPREDNISolone SOD SUCCI 40 MG/ML 1 ML VIAL IV SCH ×2 (08:03→20:03)
[2019-08-06] MEDS: FAMOTIDINE 20 MG/2 ML VIAL IV SCH ×2 (08:03→20:02)
[2019-08-06] MEDS: ASPIRIN 81 MG PO SCH (08:04)
--- NOTE | 2019-08-06 08:26 | XR ---
EXAMINATION TYPE: XR chest 1V DATE OF EXAM: 08/06/2019 COMPARISON: 08/05/2019 HISTORY: Ventilatory dependent respiratory failure. TECHNIQUE: Single frontal view of the chest is obtained. FINDINGS: Enteric and endotracheal tubes are similar in placement. Right internal jugular central ve nous catheter terminates in the high right atrium. Central confluent opacities remain. Peripheral rebecca gs are well aerated. Reverse left humeral arthroplasty noted. Cardiomediastinal silhouette is stable. IMPRESSION: Stable confluent perihilar opacities that can be seen in fluid overload or multifocal pe rihilar pneumonia.
[2019-08-06] MEDS ORDERED: SODIUM BICARB 8.4% 50 ML SYR (1 MEQ/ML) IV STA (08:46)
[2019-08-06] MEDS: DEXTROSE 5% IN WATER 1,000 ML with SODIUM BICARB (1 MEQ/ML) 150 ML IV SCH (11:12)
[2019-08-06] MEDS: ENOXAPARIN 80 MG/0.8 ML SYRINGE SQ SCH ×2 (11:22→20:32)
[2019-08-06] MEDS: VALPROIC ACID ORAL SOLN 250 MG/5 ML CUP OG-TUBE SCH ×2 (11:22→20:32)
--- NOTE | 2019-08-06 11:26 | CDI ---
Documentation Clarification Form Date: 08/06/2019 11:15:08 AM From: Elizabeth Miguel RN, CCDS Admit Date: 08/05/2019 01:46:00 PM Patient Name: Domo Bella Visit Number: [id number] ATTENTION: The Clinical Documentation Specialists (CDI) and [facility] Coding Staff appreciate your assistance in clarifying documentation. Please respond to the clarification below the line at the bottom and electronically sign. The CDI & [facility] Coding staff will review the response and follow-up if needed. Please note: Queries are made part of the Legal Health Record. If you have any questions, please contact the author of this message via ITS. Dr. Yazan Alba Patient was noted to have low arterial B/P's and is on vasopressors s/p 4L IVF bolus. Please provide clinical significance. Patient history/risk factors: COPD, HTN, Nicotine dependence Clinical Indicators: 08/04 2114 Vitals: HR 107, RR 28, B/P 127/64, ABP 89/58, spo2 96% on 100%MV 08/045 ABP 79/58 08/04 H&P: "Acute bilateral COVID-19 interstitial pneumonia with acute hypoxic hypercapnic respiratory failure on mechanical ventilation with possible sepsis present on admission. Increased creatinine with acute renal failure, possibly prerenal acute tubular necrosis." Treatment: Iv Levophed Gtt titrate for B/P 08/04 4L 0.9%NS IVF BOLUS In your professional opinion, can you please specify the clinical significance of the low arterial B/P and treatment, if known? Septic Shock Suspected or known causative organism Any associated organ failure Hypovolemic Shock Cause Other, please specify Unable to determine (Last Revision: December 2016) Septic Shock MTDD
--- NOTE | 2019-08-06 12:40 | P.PN ---
Subjective Progress Note Date: 08/06/19 62-year-old male patient who was brought into the emergency department today unresponsive and profoundly hypoxic. The patient was in acute hypoxic respiratory failure. Initial pulse ox was in the mid 30s. Apparently he was not also communicating or responding. He was apparently awake and alert on the morning prior to him coming to the hospital according to the landlord. The landlord noted that the patient was appearing ill and called EMS. Upon EMS arrival, the patient was found to be obtunded. He had a fever of 10 1F. He was found to be hypoxic, brought into the emergency room he was found to be tachycardic and hypoxic with was placed on supplemental oxygen without any benefit and ultimately the patient was intubated and placed on a mechanical ventilator. COVID 19 is suspected. The patient was placed on the opposite isolation. The patient had the appropriate nasal swabs. Chest x-ray showed bilateral airspace disease consistent with pneumonia in addition to interstitial pneumonitis. ET tube was around 3.7 cm above the mario. NG tube was extending into the left abdomen. There was a right upper lobe consolidation noted and a tiny right-sided pleural effusion. No evidence of any pneumothorax. There was bilateral infiltrates and coarse interstitium and a prosthetic left shoulder. The patient has a white cell count of 4.9. He had some lymphopenia. His platelet counts is no within normal limits. The blood gases was done on 100% nonrebreather showed a pH of 7.17 with a pCO2 of 66 and pO2 of 45. The patient also had an acute kidney injury with a creatinine of 1.65. Epigastric level was at 3.1. The ALT is at 1106 with an ammonia level of 146 and a bilirubin of 0.5 and an albumin of 4.1. The serum alcohol was negative and the patient has negative salicylates and acetaminophen. Influenza screen has been negative. Covid 19 analysis still pending for now. This patient lives with a sister in a house and he collects Social Security disability. He has had issues with mental health and the patient has been dealing with bipolar disorder and chronic insomnia of many years duration. He has also chronic anxiety disorder. No history of any previous suicidal ideation or intent. No delusions or hallucinations based on recent psychiatric evaluation that was in the hospital. On today's evaluation of 62,020 the patient is being seen in follow-up in the in tensive care unit. Noted the patient is intubated on a mechanical ventilator and is suspected to have Covid 19. He is afebrile on today's evaluation. He remains on a mechanical ventilator. He is sedated with propofol running at 20 mg per KG per minute. He was given a total of 5 L of IV fluid as the patient was hypotensive and currently the fluid is running at 75 mL an hour of normal saline. He remains on norepinephrine infusion at 0.08 mg per KG per minute. He remains on a mechanical ventilator. His assist-control mode at the rate of 28 with a tidal volume of 450 and FiO2 of 60% with a PEEP of 15. His blood gases showed a pH of 7.12 with a pCO2 of 58 and pO2 of 187. This was done and FiO2 of 100%. Otherwise, the patient has blood abnormalities it is consistent with Covid 19 infection. He has a rhabdomyolysis with a CPK level of 6114. He has also transaminitis with a AST of 3354, ALT of 1962, and his LDH level is at 8367. His creatinine is at 1.2, which is up from a baseline of 1.65 with fluid resuscitation. His current minute ventilation is 13 L. I made recommendations to keep the same vent setting. Based on the blood on of some non-anion gap metabolic acidosis, and with recommendations to start the patient on bicarb infusion and addition to 2 A of IV bicarb pushes. He was having temperatures throughout the night with temperature maximum 100.8. Current temperature is 99.6. He'll be started on enteral feeding for nutritional support. Covid 19 evaluation is still pending for now. Objective - Vital Signs Vital signs: Vital Signs Temp 99.6 F 08/06/19 12:00 Pulse 97 08/06/19 12:00 Resp 14 08/06/19 12:00 BP 115/64 08/06/19 12:00 Pulse Ox 96 08/06/19 12:00 Intake & Output 08/05/19 08/06/19 08/06/19 18:59 06:59 18:59 Intake Total 3175.219 2397.017 835.377 Output Total 315 675 520 Balance 2860.219 1722.017 315.377 Weight 90.718 kg 106.6 kg 106.6 kg Intake: IV 3150 2066 621 .9 bolus 3000 1000 Cefepime 2 gm In Sodium 100 100 Chloride 0.9% 100 ml @ 200 mls/hr IVPB ONCE STA Rx#:[id number] Dextrose 5% in Water 1, 75 000 ml @ 75 mls/hr IV . [id number] CASSIDY with Sodium Bicarb (1 Meq/ml) 150 ml Rx#:[id number] Magnesium Sulfate-D5w Pmx 100 1 gm In Dextrose/Water 1 100ml.bag @ 100 mls/hr IVPB Q1H C[facility] Rx#: [id number] Pressure bag 66 36 Sodium Chloride 0.9% 1, 150 900 310 000 ml @ 75 mls/hr IV . [id number] C[facility] Rx#:[id number] Intake, IV Titration 25.219 331.017 94.377 Amount Norepinephrine 4 mg In 254 Sodium Chloride 0.9% 250 ml @ 0.05 MCG/KG/MIN 17. 282 mls/hr IV .[id number] CASSIDY Rx#:[id number] Propofol 1,000 mg In 25.219 77.017 94.377 Empty Bag 1 bag @ Titrate IV .Q0M C[facility] Rx#: [id number] Oral 120 Output: Gastric Drainage 280 Urine 315 675 240 Other: Voiding Method Indwelling Catheter Indwelling Catheter ABP, PAP, CO, CI - Last Documented Arterial Blood Pressure 112/51 - Exam Gen. appearance, comfortable sedated nonacute distress intubated on a mechanical ventilator. Orogastric and orotracheal tube are both in place Head exam was generally normal. There was no scleral icterus or corneal arcus. Mucous membranes were moist. Neck was supple and without jugular venous distension, thyromegaly, or carotid bruits. Carotids were easily palpable bilaterally. There was no adenopathy. Lungs were clear to auscultation and percussion, and with normal diaphragmatic excursion. No wheezes or rales were noted. Cardiac exam revealed the PMI to be normally situated and sized. The rhythm was regular and no extrasystoles were noted during several minutes of auscultation. The first and second heart sounds were normal and physiologic splitting of the second heart sound was noted. There were no murmurs, rubs, clicks, or gallops. Abdominal exam revealed normal bowel sounds. The abdomen was soft, non-tender, and without masses, organomegaly, or appreciable enlargement of the abdominal aorta. Examination of the extremities revealed easily palpable radial, femoral and pedal pulses. There was no cyanosis, clubbing or edema. Examination of the skin revealed no evidence of significant rashes, suspicious appearing nevi or other concerning lesions. Neurologically the patient sedated, comfortable no acute distress. - Labs CBC & Chem 7: 08/06/19 04:15 08/06/19 04:15 Labs: Abnormal Lab Results - Last 24 Hours (Table) 08/05/19 08/05/19 08/05/19 Range/Units 11:00 11:00 11:00 RDW (11.5-15.5) % Lymphocytes # (Manual) (1.0-4.8) k/uL Metamyelocytes # (Man) (0) k/uL Myelocytes # (Manual) (0) k/uL PT (9.0-12.0) sec INR (<1.2) D-Dimer 4.26 H (<0.60) mg/L FEU ABG pH (7.35-7.45) ABG pCO2 (35-45) mmHg ABG pO2 (83-108) mmHg ABG HCO3 (21-25) mmol/L ABG O2 Saturation (94-97) % Potassium (3.5-5.1) mmol/L Chloride (98-107) mmol/L Carbon Dioxide (22-30) mmol/L BUN (9-20) mg/dL Creatinine (0.66-1.25) mg/dL Glucose (74-99) mg/dL POC Glucose (mg/dL) (75-99) mg/dL Osmolality (280-301) mosm/kg Plasma Lactic Acid Héctor (0.7-2.0) mmol/L Calcium (8.4-10.2) mg/dL Ferritin 2732.3 H (22.0-322.0) ng/mL AST (17-59) U/L ALT (4-49) U/L Ammonia (<30) umol/L Lactate Dehydrogenase 7884 H (313-618) U/L Creatine Kinase (55-170) U/L Troponin I (0.000-0.034) ng/mL C-Reactive Protein (<10.0) mg/L Total Protein (6.3-8.2) g/dL Albumin (3.5-5.0) g/dL Procalcitonin 8.75 H (0.02-0.09) ng/mL Urine Protein (Negative) Urine Ketones (Negative) Urine WBC (0-5) /hpf Urine Bacteria (None) /hpf Hyaline Casts (0-2) /lpf Urine Mucus (None) /hpf 08/05/19 08/05/19 08/05/19 Range/Units 11:18 12:24 12:30 RDW (11.5-15.5) % Lymphocytes # (Manual) (1.0-4.8) k/uL Metamyelocytes # (Man) (0) k/uL Myelocytes # (Manual) (0) k/uL PT (9.0-12.0) sec INR (<1.2) D-Dimer (<0.60) mg/L FEU ABG pH (7.35-7.45) ABG pCO2 (35-45) mmHg ABG pO2 (83-108) mmHg ABG HCO3 (21-25) mmol/L ABG O2 Saturation (94-97) % Potassium (3.5-5.1) mmol/L Chloride (98-107) mmol/L Carbon Dioxide (22-30) mmol/L BUN (9-20) mg/dL Creatinine (0.66-1.25) mg/dL Glucose (74-99) mg/dL POC Glucose (mg/dL) 140 H (75-99) mg/dL Osmolality (280-301) mosm/kg Plasma Lactic Acid Héctor (0.7-2.0) mmol/L Calcium (8.4-10.2) mg/dL Ferritin (22.0-322.0) ng/mL AST (17-59) U/L ALT (4-49) U/L Ammonia (<30) umol/L Lactate Dehydrogenase (313-618) U/L Creatine Kinase (55-170) U/L Troponin I 0.444 H* (0.000-0.034) ng/mL C-Reactive Protein (<10.0) mg/L Total Protein (6.3-8.2) g/dL Albumin (3.5-5.0) g/dL Procalcitonin (0.02-0.09) ng/mL Urine Protein Trace H (Negative) Urine Ketones Trace H (Negative) Urine WBC 7 H (0-5) /hpf Urine Bacteria Rare H (None) /hpf Hyaline Casts 19 H (0-2) /lpf Urine Mucus Occasional H (None) /hpf 08/05/19 08/05/19 08/05/19 Range/Units 12:30 12:30 16:53 RDW (11.5-15.5) % Lymphocytes # (Manual) (1.0-4.8) k/uL Metamyelocytes # (Man) (0) k/uL Myelocytes # (Manual) (0) k/uL PT (9.0-12.0) sec INR (<1.2) D-Dimer (<0.60) mg/L FEU ABG pH (7.35-7.45) ABG pCO2 (35-45) mmHg ABG pO2 (83-108) mmHg ABG HCO3 (21-25) mmol/L ABG O2 Saturation (94-97) % Potassium (3.5-5.1) mmol/L Chloride (98-107) mmol/L Carbon Dioxide (22-30) mmol/L BUN 69 H (9-20) mg/dL Creatinine 1.65 H (0.66-1.25) mg/dL Glucose 145 H (74-99) mg/dL POC Glucose (mg/dL) (75-99) mg/dL Osmolality 319 H (280-301) mosm/kg Plasma Lactic Acid Héctor 3.1 H* 2.7 H* (0.7-2.0) mmol/L Calcium 7.9 L (8.4-10.2) mg/dL Ferritin (22.0-322.0) ng/mL AST 2690 H (17-59) U/L ALT 1106 H (4-49) U/L Ammonia 146 H (<30) umol/L Lactate Dehydrogenase (313-618) U/L Creatine Kinase (55-170) U/L Troponin I (0.000-0.034) ng/mL C-Reactive Protein 544.2 H (<10.0) mg/L Total Protein (6.3-8.2) g/dL Albumin (3.5-5.0) g/dL Procalcitonin (0.02-0.09) ng/mL Urine Protein (Negative) Urine Ketones (Negative) Urine WBC (0-5) /hpf Urine Bacteria (None) /hpf Hyaline Casts (0-2) /lpf Urine Mucus (None) /hpf 08/05/19 08/05/19 08/05/19 Range/Units 16:53 16:57 20:30 RDW (11.5-15.5) % Lymphocytes # (Manual) (1.0-4.8) k/uL Metamyelocytes # (Man) (0) k/uL Myelocytes # (Manual) (0) k/uL PT 12.9 H (9.0-12.0) sec INR 1.3 H (<1.2) D-Dimer (<0.60) mg/L FEU ABG pH 7.19 L* (7.35-7.45) ABG pCO2 57 H (35-45) mmHg ABG pO2 (83-108) mmHg ABG HCO3 (21-25) mmol/L ABG O2 Saturation (94-97) % Potassium (3.5-5.1) mmol/L Chloride (98-107) mmol/L Carbon Dioxide (22-30) mmol/L BUN (9-20) mg/dL Creatinine (0.66-1.25) mg/dL Glucose (74-99) mg/dL POC Glucose (mg/dL) 110 H (75-99) mg/dL Osmolality (280-301) mosm/kg Plasma Lactic Acid Héctor (0.7-2.0) mmol/L Calcium (8.4-10.2) mg/dL Ferritin (22.0-322.0) ng/mL AST (17-59) U/L ALT (4-49) U/L Ammonia (<30) umol/L Lactate Dehydrogenase (313-618) U/L Creatine Kinase (55-170) U/L Troponin I (0.000-0.034) ng/mL C-Reactive Protein (<10.0) mg/L Total Protein (6.3-8.2) g/dL Albumin (3.5-5.0) g/dL Procalcitonin (0.02-0.09) ng/mL Urine Protein (Negative) Urine Ketones (Negative) Urine WBC (0-5) /hpf Urine Bacteria (None) /hpf Hyaline Casts (0-2) /lpf Urine Mucus (None) /hpf 08/06/19 08/06/19 08/06/19 Range/Units 04:15 04:15 04:15 RDW 16.3 H (11.5-15.5) % Lymphocytes # (Manual) 0.51 L (1.0-4.8) k/uL Metamyelocytes # (Man) 1.90 H (0) k/uL Myelocytes # (Manual) 0.73 H (0) k/uL PT (9.0-12.0) sec INR (<1.2) D-Dimer (<0.60) mg/L FEU ABG pH (7.35-7.45) ABG pCO2 (35-45) mmHg ABG pO2 (83-108) mmHg ABG HCO3 (21-25) mmol/L ABG O2 Saturation (94-97) % Potassium 5.4 H (3.5-5.1) mmol/L Chloride 112 H (98-107) mmol/L Carbon Dioxide 19 L (22-30) mmol/L BUN 67 H (9-20) mg/dL Creatinine (0.66-1.25) mg/dL Glucose 146 H (74-99) mg/dL POC Glucose (mg/dL) (75-99) mg/dL Osmolality (280-301) mosm/kg Plasma Lactic Acid Héctor (0.7-2.0) mmol/L Calcium 6.5 L (8.4-10.2) mg/dL Ferritin (22.0-322.0) ng/mL AST 3354 H (17-59) U/L ALT 1962 H (4-49) U/L Ammonia (<30) umol/L Lactate Dehydrogenase 8367 H (313-618) U/L Creatine Kinase 6114 H* (55-170) U/L Troponin I (0.000-0.034) ng/mL C-Reactive Protein (<10.0) mg/L Total Protein 5.5 L (6.3-8.2) g/dL Albumin 3.0 L (3.5-5.0) g/dL Procalcitonin (0.02-0.09) ng/mL Urine Protein (Negative) Urine Ketones (Negative) Urine WBC (0-5) /hpf Urine Bacteria (None) /hpf Hyaline Casts (0-2) /lpf Urine Mucus (None) /hpf 08/06/19 Range/Units 04:17 RDW (11.5-15.5) % Lymphocytes # (Manual) (1.0-4.8) k/uL Metamyelocytes # (Man) (0) k/uL Myelocytes # (Manual) (0) k/uL PT (9.0-12.0) sec INR (<1.2) D-Dimer (<0.60) mg/L FEU ABG pH 7.12 L* (7.35-7.45) ABG pCO2 58 H (35-45) mmHg ABG pO2 187 H (83-108) mmHg ABG HCO3 19 L (21-25) mmol/L ABG O2 Saturation 98.4 H (94-97) % Potassium (3.5-5.1) mmol/L Chloride (98-107) mmol/L Carbon Dioxide (22-30) mmol/L BUN (9-20) mg/dL Creatinine (0.66-1.25) mg/dL Glucose (74-99) mg/dL POC Glucose (mg/dL) (75-99) mg/dL Osmolality (280-301) mosm/kg Plasma Lactic Acid Héctor (0.7-2.0) mmol/L Calcium (8.4-10.2) mg/dL Ferritin (22.0-322.0) ng/mL AST (17-59) U/L ALT (4-49) U/L Ammonia (<30) umol/L Lactate Dehydrogenase (313-618) U/L Creatine Kinase (55-170) U/L Troponin I (0.000-0.034) ng/mL C-Reactive Protein (<10.0) mg/L Total Protein (6.3-8.2) g/dL Albumin (3.5-5.0) g/dL Procalcitonin (0.02-0.09) ng/mL Urine Protein (Negative) Urine Ketones (Negative) Urine WBC (0-5) /hpf Urine Bacteria (None) /hpf Hyaline Casts (0-2) /lpf Urine Mucus (None) /hpf Microbiology - Last 24 Hours (Table) 08/05/19 21:56 Gram Stain - Preliminary Sputum Sputum Culture - Preliminary 08/05/19 18:20 Urine Culture - Preliminary Urine,Catheterized Assessment and Plan Plan: 1 acute hypoxic/hypercapnic respiratory failure with development of diffuse breath and pulmonary interstitial infiltrates in addition to areas of consolidation bilaterally. Consider Covid 19 related pneumonia. All of the blood work and the rest of the inflammatory parkers are suggestive of Covid 19 infection. The PCR still pending for now. Patient was profoundly hypoxic and some of admission, currently intubated on a mechanical ventilator. The patient continues to have a component of permissive hypercapnia. Oxidation is improved and the patient is currently on a PEEP of 15 with an FiO2 of 60%. Please refer to the most recent blood gas. As for the blood gases evaluation, the patient has a combination of metabolic and respiratory acidosis. I am about to correct his underlying metabolic acidosis. 2 acute ventilator-dependent respiratory failure secondary to above 3 acute febrile illness secondary to above 4 acute kidney injury with a creatinine of 1.6 at a time of admission the creatinine is improving and the patient has developed some non-anion gap metabolic acidosis 5 acute lactic acidosis, improved 6 diminished level of consciousness and the patient came into the emergency unresponsive secondary to profound hypoxemia. 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 Oxidation general is improved Wean off pressors as the patient is on minimal dose of norepinephrine infusion for now. We'll need to check based on echocardiogram Continue propofol for sedation Awaiting Covid 19 nasopharyngeal swab evaluation Follow-up on the LDH, C-reactive protein and d-dimer is elevated and the patient was placed on a therapeutic dose of Lovenox Put the patient IV Solu Medrol 40 minutes every 12 hours Put the patient on IV cefepime as an empiric antibiotic coverage\check for calcitonin level was elevated and I think it's reasonable to continue the IV cefepime for now. Monitor CPK level Initiate enteral feeding for nutritional support IV Protonix for GI prophylaxis This is a critically care evaluation that was on a than 30 minutes. We'll continue to follow Time with Patient: Greater than 30
[2019-08-06 13:01] LABS: Ferritin 6363.4 ng/mL (22.0-322.0)
[2019-08-06 13:43] LABS: ABG Base Excess -7.2 mmol/L; ABG HCO3 20 mmol/L (21-25); ABG Oxygen Saturation 96.7 % (94-97); ABG PCO2 47 mmHg (35-45); ABG PH 7.24 (7.35-7.45); ABG PO2 102 mmHg (83-108); ABG TCO2 22 mmol/L (19-24); Allen Test Performed? Yes
--- NOTE | 2019-08-06 17:16 | P.PN ---
Subjective Patient is admitted for acute hypoxic and hypercapnic respiratory failure which was believed to be secondary to Covid 19 pneumonia patient is presently on FiO2 of 60%. Patient does have related troponin by highly elevated be high d-dimer is of which patient is on anti-correlation dose of the Lovenox. Patient scored 19 is pending patient has chest x-ray findings consistent with the pulmonary edema or atypical pneumonia or Covid 19 pneumonia along with the significant transaminitis elevated highly elevated LDH highly elevated. Ferritin and si gnificant lymphopenia ration continues to have fever. Patient also has acute renal failure secondary to possibly acute tubular necrosis patient is on sodium bicarbonate and D5 because of hyperkalemia. Review Of systems: Unable to obtain due to his clinical condition. All inpatient medications were reviewed and appropriate changes in these medications as dictated in the interval history and assessment and plan. Objective - Vital Signs Vital signs: Vital Signs Temp 100.0 F H 08/06/19 16:00 Pulse 99 08/06/19 16:30 Resp 21 08/06/19 16:30 BP 126/67 08/06/19 16:00 Pulse Ox 95 08/06/19 16:30 Intake & Output 08/05/19 08/06/19 08/06/19 18:59 06:59 18:59 Intake Total 3175.219 2397.017 1518.452 Output Total 315 675 730 Balance 2860.219 1722.017 788.452 Weight 90.718 kg 106.6 kg 106.6 kg Intake: IV 3150 2066 985 .9 bolus 3000 1000 Cefepime 2 gm In Sodium 100 100 Chloride 0.9% 100 ml @ 200 mls/hr IVPB ONCE STA Rx#:[id number] Dextrose 5% in Water 1, 375 000 ml @ 75 mls/hr IV . [id number] [facility] with Sodium Bicarb (1 Meq/ml) 150 ml Rx#:[id number] Magnesium Sulfate-D5w Pmx 100 1 gm In Dextrose/Water 1 100ml.bag @ 100 mls/hr IVPB Q1H [facility] Rx#: [id number] Pressure bag 66 60 Sodium Chloride 0.9% 1, 150 900 350 000 ml @ 75 mls/hr IV . [id number] [facility] Rx#:[id number] Intake, IV Titration 25.219 331.017 413.452 Amount Norepinephrine 4 mg In 254 254.000 Sodium Chloride 0.9% 250 ml @ 0.05 MCG/KG/MIN 17. 282 mls/hr IV .[id number] [facility] Rx#:[id number] Propofol 1,000 mg In 25.219 77.017 159.452 Empty Bag 1 bag @ Titrate IV .Q0M [facility] Rx#: [id number] Oral 120 Output: Gastric Drainage 280 Urine 315 675 450 Other: Voiding Method Indwelling Catheter Indwelling Catheter Indwelling Catheter ABP, PAP, CO, CI - Last Documented Arterial Blood Pressure 119/55 - Exam PHYSICAL EXAMINATION: GENERAL: Patient is intubated sedated and vented to settings as mentioned above patient is a FiO2 of 60% PEEP of 15 pedal volume of 450 set up respiratory rate of 28 assist-control ventilation. ABGs hypoxic hypercapnic respiratory failure with pH of 7.17 pCO2 66 by mouth to 45 bicarbonate 19 HEENT: Pupils are round and equally reacting to light. EOMI. No scleral icterus. No conjunctival pallor. Normocephalic, atraumatic. No pharyngeal erythema. No thyromegaly. CARDIOVASCULAR: S1 and S2 present. No murmurs, rubs, or gallops. PULMONARY: Chest is clear to auscultation, no wheezing or crackles. ABDOMEN: Soft, nontender, nondistended, normoactive bowel sounds. No palpable organomegaly. MUSCULOSKELETAL: No joint swelling or deformity. EXTREMITIES: No cyanosis, clubbing, or pedal edema. NEUROLOGICAL: Gross neurological examination did not reveal any focal deficits. SKIN: No rashes. - Labs CBC & Chem 7: 08/06/19 04:15 08/06/19 04:15 Labs: Abnormal Lab Results - Last 24 Hours (Table) 08/05/19 08/05/19 08/05/19 Range/Units 11:00 11:00 16:53 RDW (11.5-15.5) % Lymphocytes # (Manual) (1.0-4.8) k/uL Metamyelocytes # (Man) (0) k/uL Myelocytes # (Manual) (0) k/uL PT (9.0-12.0) sec INR (<1.2) ABG pH (7.35-7.45) ABG pCO2 (35-45) mmHg ABG pO2 (83-108) mmHg ABG HCO3 (21-25) mmol/L ABG O2 Saturation (94-97) % Potassium (3.5-5.1) mmol/L Chloride (98-107) mmol/L Carbon Dioxide (22-30) mmol/L BUN (9-20) mg/dL Glucose (74-99) mg/dL POC Glucose (mg/dL) (75-99) mg/dL Plasma Lactic Acid Héctor 2.7 H* (0.7-2.0) mmol/L Calcium (8.4-10.2) mg/dL Ferritin 2732.3 H (22.0-322.0) ng/mL AST (17-59) U/L ALT (4-49) U/L Lactate Dehydrogenase (313-618) U/L Creatine Kinase (55-170) U/L Total Protein (6.3-8.2) g/dL Albumin (3.5-5.0) g/dL Procalcitonin 8.75 H (0.02-0.09) ng/mL 08/05/19 08/05/19 08/06/19 Range/Units 16:53 20:30 04:15 RDW 16.3 H (11.5-15.5) % Lymphocytes # (Manual) 0.51 L (1.0-4.8) k/uL Metamyelocytes # (Man) 1.90 H (0) k/uL Myelocytes # (Manual) 0.73 H (0) k/uL PT 12.9 H (9.0-12.0) sec INR 1.3 H (<1.2) ABG pH (7.35-7.45) ABG pCO2 (35-45) mmHg ABG pO2 (83-108) mmHg ABG HCO3 (21-25) mmol/L ABG O2 Saturation (94-97) % Potassium (3.5-5.1) mmol/L Chloride (98-107) mmol/L Carbon Dioxide (22-30) mmol/L BUN (9-20) mg/dL Glucose (74-99) mg/dL POC Glucose (mg/dL) 110 H (75-99) mg/dL Plasma Lactic Acid Héctor (0.7-2.0) mmol/L Calcium (8.4-10.2) mg/dL Ferritin (22.0-322.0) ng/mL AST (17-59) U/L ALT (4-49) U/L Lactate Dehydrogenase (313-618) U/L Creatine Kinase (55-170) U/L Total Protein (6.3-8.2) g/dL Albumin (3.5-5.0) g/dL Procalcitonin (0.02-0.09) ng/mL 08/06/19 08/06/19 08/06/19 Range/Units 04:15 04:15 04:17 RDW (11.5-15.5) % Lymphocytes # (Manual) (1.0-4.8) k/uL Metamyelocytes # (Man) (0) k/uL Myelocytes # (Manual) (0) k/uL PT (9.0-12.0) sec INR (<1.2) ABG pH 7.12 L* (7.35-7.45) ABG pCO2 58 H (35-45) mmHg ABG pO2 187 H (83-108) mmHg ABG HCO3 19 L (21-25) mmol/L ABG O2 Saturation 98.4 H (94-97) % Potassium 5.4 H (3.5-5.1) mmol/L Chloride 112 H (98-107) mmol/L Carbon Dioxide 19 L (22-30) mmol/L BUN 67 H (9-20) mg/dL Glucose 146 H (74-99) mg/dL POC Glucose (mg/dL) (75-99) mg/dL Plasma Lactic Acid Héctor (0.7-2.0) mmol/L Calcium 6.5 L (8.4-10.2) mg/dL Ferritin 6363.4 H (22.0-322.0) ng/mL AST 3354 H (17-59) U/L ALT 1962 H (4-49) U/L Lactate Dehydrogenase 8367 H (313-618) U/L Creatine Kinase 6114 H* (55-170) U/L Total Protein 5.5 L (6.3-8.2) g/dL Albumin 3.0 L (3.5-5.0) g/dL Procalcitonin (0.02-0.09) ng/mL 08/06/19 Range/Units 13:41 RDW (11.5-15.5) % Lymphocytes # (Manual) (1.0-4.8) k/uL Metamyelocytes # (Man) (0) k/uL Myelocytes # (Manual) (0) k/uL PT (9.0-12.0) sec INR (<1.2) ABG pH 7.24 L (7.35-7.45) ABG pCO2 47 H (35-45) mmHg ABG pO2 (83-108) mmHg ABG HCO3 20 L (21-25) mmol/L ABG O2 Saturation (94-97) % Potassium (3.5-5.1) mmol/L Chloride (98-107) mmol/L Carbon Dioxide (22-30) mmol/L BUN (9-20) mg/dL Glucose (74-99) mg/dL POC Glucose (mg/dL) (75-99) mg/dL Plasma Lactic Acid Héctor (0.7-2.0) mmol/L Calcium (8.4-10.2) mg/dL Ferritin (22.0-322.0) ng/mL AST (17-59) U/L ALT (4-49) U/L Lactate Dehydrogenase (313-618) U/L Creatine Kinase (55-170) U/L Total Protein (6.3-8.2) g/dL Albumin (3.5-5.0) g/dL Procalcitonin (0.02-0.09) ng/mL Microbiology - Last 24 Hours (Table) 08/05/19 16:53 Blood Culture Gram Stain - Preliminary Blood 08/05/19 16:53 Blood Culture - Final Blood 08/05/19 21:56 Gram Stain - Preliminary Sputum Sputum Culture - Preliminary 08/05/19 18:20 Urine Culture - Preliminary Urine,Catheterized Assessment and Plan Plan: Acute hypoxic and hypercapnic respiratory failure probably secondary to sepsis from going 19 pneumonia along with the possible COPD exacerbation. Continue ventilator support with the above-mentioned vent settings continue with inhalational treatments patient is on systemic steroids mostly for covid 19. -Sepsis secondary to Covid 19 pneumonia most probably patient is on empiric antibiotic until we get the Covid 19 testing. Patient is on anti coagulation do ses of Lovenox -Acute renal failure possibly acute tubular necrosis patient creatinine improved with IV fluids patient is on bicarbonate drip at this time -Lactic acidosis secondary to sepsis -Hyperlipidemia next and heparin hypertension -Elevated liver enzymes set Anzemet is probably secondary to shock liver. -Troponin leak secondary to myocardial injury from sepsis.
[2019-08-06] MEDS ORDERED: DEXTROSE 5% IN WATER 100 ML with AMIODARONE 150 MG IV ONE (18:30)
[2019-08-06] MEDS: VANCOMYCIN 1,750 MG in SODIUM CHLORIDE 0.9% 500 ML 500 ML IVPB SCH (18:34)
[2019-08-06 18:41] LABS: Glucose,Whole Blood 172 mg/dL (75-99)
[2019-08-06] MEDS ORDERED: AMIODARONE 360 MG in DEXTROSE 5% IN WATER 200 ML IV ONE ×2 (18:45)
--- NOTE | 2019-08-06 18:46 | XR ---
EXAMINATION TYPE: XR chest 1V portable DATE OF EXAM: 08/06/2019 COMPARISON: 08/06/2019 HISTORY: Reintubation. Tube placement. TECHNIQUE: Single frontal view of the chest is obtained. FINDINGS: Endotracheal tube is slightly cephalad in placement terminating 7.5 cm from the mario and could be advanced 3.5 cm-4 cm for optimal placement. Degree of perihilar opacities have improved fro m the prior. Left humeral arthroplasty seen. Enteric tube coils in the expected region of the stomach . Diffuse osseous demineralization seen. IMPRESSION: Improved perihilar opacities. Slightly cephalad placement of the endotracheal tube that could be advanced 3.5-4 cm for optimal placement.
[2019-08-06 20:00] LABS: Glucose,Whole Blood 166 mg/dL (75-99)
[2019-08-06] MEDS: INSULIN ASPART (NovoLOG) 100 UNIT/ML VIAL SQ SCH (20:03)
--- NOTE | 2019-08-06 22:31 | CT ---
EXAMINATION TYPE: CT brain wo con DATE OF EXAM: 08/06/2019 COMPARISON: None HISTORY: AMS CT DLP: 1141.4 mGycm Automated exposure control for dose reduction was used. There is cerebral cortical atrophy. There is no mass effect nor midline shift. There is no sign of in tracranial hemorrhage. The calvarium is intact. There is no evidence of cerebral edema. IMPRESSION: Cerebral atrophy. No acute intracranial abnormality.
--- NOTE | 2019-08-06 22:53 | P.CONS ---
History of Present Illness - Reason for Consult Consult date: 08/06/19 sepsis Requesting physician: Korin Alvarado - Chief Complaint Unresponsive x 1 day - History of Present Illness Patient is a 64-year-old male who was brought into the ER by EMS after EMS was called in by the landlord noted the patient was ill-appearing on arrival of the EMS the patient was noticed to be obtunded he did have a temperature of 101 F patient also hypoxic with O2 sats in the 30s with the symptom had the patient was rushed to the ER on arrival to the ER at [facility] her fever of 103 F patient was tachycardic patient did have a normal white count with some lymphopenia patient has a creatinine of 1.65 elevated liver enzymes mild elevated troponin he also have elevated CRP as well as procalcitonin patient did have a chest x-ray bilateral airspace disease correlate for pneumonia oversedation pneumonitis repeat chest x-ray this morning perihilar opacities patient has been treated with broad-spectrum any form of cefepime and vancomycin infectious has been consulted for pneumonia and concern for possible COVID-19 function the nasopharyngeal swab has been sent which is currently pending patient is currently intubated on the vent is unable provide any history most information has been obtained from the review the chart and talking to the nursing staff. Review of Systems Positive point has been mentioned in HPI complete review could not be obtained because of underlying mental status. Past Medical History Past Medical History: COPD, Hyperlipidemia, Hypertension, Osteoarthritis (OA), Pneumonia Additional Past Medical History / Comment(s): History of bipolar disorder, anxiety disorder, history of infection of the left shoulder and the patient has a total left shoulder replacement History of Any Multi-Drug Resistant Organisms: None Reported Past Surgical History: Appendectomy, Joint Replacement, Orthopedic Surgery, Tonsillectomy Additional Past Surgical History / Comment(s): finger surgery, LEFT SHOULDER REPLACEMENT , IMPLANT REMOVED FROM LEFT SHOLDER, LEFT SHOULDER REPLACEMENT, TOTAL LEFT KNEE, REPAIR OF LEFT KNEE, Past Anesthesia/Blood Transfusion Reactions: Motion Sickness Smoking Status: Current some day smoker - Past Family History Sister(s) Family Medical History: Cancer Medications and Allergies Home Medications Medication Instructions Recorded Confirmed Type Metoprolol Tartrate [Lopressor] 25 mg PO BID 06/02/17 08/05/19 History Rosuvastatin Calcium [Crestor] 5 mg PO HS 06/02/17 08/05/19 History amLODIPine [Norvasc] 5 mg PO BID 06/02/17 08/05/19 History Fenofibrate Nanocrystallized 145 mg PO DAILY 10/30/17 08/05/19 History [Fenofibrate] Albuterol Sulfate [Ventolin HFA] 1 - 2 puff INHALATION RT-Q6H PRN 12/29/18 08/05/19 History Dextroamphetamine/Amphetamine 30 mg PO BID 12/29/18 08/05/19 History [Adderall] Vascepa 1gm 2 gm PO BID 12/29/18 08/05/19 History chlordiazePOXIDE HCl [Librium] 25 mg PO TID 14 Days cap 01/03/19 08/05/19 Rx diphenhydrAMINE [Benadryl] 50 mg PO HS PRN 28 Days cap 01/03/19 08/05/19 Rx Acetaminophen with Codeine 1 tab PO Q4-6H PRN 08/05/19 08/05/19 History [Tylenol with Codeine #4 Tablet] Aspirin EC [Ecotrin Low Dose] 81 mg PO DAILY 08/05/19 08/05/19 History Chlorthalidone 25 mg PO DAILY 08/05/19 08/05/19 History Cyclobenzaprine [Flexeril] 10 mg PO HS 08/05/19 08/05/19 History Divalproex ER [Depakote ER] 500 mg PO BID 08/05/19 08/05/19 History Allergies Allergy/AdvReac Type Severity Reaction Status Date / Time haloperidol [From Haldol] Allergy Anaphylaxis Verified 12/31/18 19:20 Physical Exam Vitals: Vital Signs Temp Pulse Pulse Resp BP Pulse Ox 08/06/19 14:30 99 18 95 08/06/19 14:15 98 17 95 08/06/19 14:00 98 18 97 08/06/19 13:45 99 15 97 08/06/19 13:30 100 15 96 08/06/19 13:15 98 16 96 08/06/19 13:00 15 96 08/06/19 12:45 99 14 115/64 96 08/06/19 12:30 98 16 115/64 96 08/06/19 12:15 98 14 115/64 96 08/06/19 12:00 99.6 F 97 14 115/64 96 08/06/19 11:45 97 16 96 0602 11:30 96 28 H 96 08/06/19 11:15 96 28 H 96 02 11:00 96 28 H 96 08/06/19 10:45 96 37 H 96 08/06/19 10:30 96 29 H 96 08/06/19 10:15 95 28 H 96 02 10:00 96 19 110/65 96 02 09:45 96 19 96 08/06/19 09:30 95 19 96 02 09:15 95 14 95 08/06/19 09:00 94 19 95 08/06/19 08:45 94 23 96 08/06/19 08:30 94 14 95 08/06/19 08:15 93 14 96 08/06/19 08:00 100.1 F H 92 25 H 103/61 96 02 07:45 93 18 97 08/06/19 07:30 92 28 H 101/63 96 08/06/19 07:15 92 28 H 101/63 96 02 07:00 92 28 H 101/63 96 02 06:45 92 28 H 101/63 96 02 06:30 93 28 H 101/63 95 0220 06:15 92 28 H 101/63 95 02 06:00 93 28 H 94 L 08/06/19 05:45 93 28 H 91 L 08/06/19 05:30 92 28 H 97 02 05:15 93 28 H 99 02 05:00 93 28 H 99 0220 04:45 93 28 H 98 08/06/19 04:30 93 28 H 98 0220 04:15 94 28 H 99 0220 04:00 99.7 F H 94 93 28 H 126/72 99 0220 03:45 95 28 H 99 060220 03:30 94 28 H 99 0220 03:15 96 28 H 99 02 03:00 94 28 H 126/72 98 0220 02:45 92 28 H 126/72 98 0220 02:30 96 29 H 98 08/06/19 02:15 96 29 H 126/72 98 08/06/19 02:00 98 28 H 98 08/06/19 01:45 98 27 H 98 08/06/19 01:30 98 28 H 98 08/06/19 01:15 98 28 H 98 08/06/19 01:00 99 28 H 98 08/06/19 00:45 98 28 H 98 08/06/19 00:30 99 28 H 130/71 98 08/06/19 00:15 101 H 28 H 125/71 98 08/06/19 00:00 99.1 F 100 28 H 123/68 98 08/05/19 23:45 99 28 H 124/68 98 08/05/19 23:30 100 28 H 127/70 98 08/05/19 23:15 100 28 H 123/67 98 08/05/19 23:00 102 H 28 H 123/65 97 08/05/19 22:45 102 H 28 H 123/62 97 08/05/19 22:30 104 H 28 H 109/60 97 08/05/19 22:15 104 H 28 H 126/63 96 08/05/19 22:00 105 H 28 H 127/65 97 08/05/19 21:45 106 H 28 H 120/70 97 08/05/19 21:30 104 H 29 H 118/71 97 08/05/19 21:15 107 H 28 H 127/64 96 08/05/19 21:00 109 H 28 H 126/63 96 08/05/19 20:45 109 H 28 H 125/65 96 08/05/19 20:30 108 H 28 H 131/76 96 08/05/19 20:15 109 H 29 H 131/66 96 08/05/19 20:00 100.8 F H 108 H 106 H 30 H 126/65 96 20 19:45 108 H 29 H 124/66 96 08/05/19 19:30 106 H 28 H 120/65 96 08/05/19 19:00 105 H 29 H 112/60 96 08/05/19 18:45 105 H 28 H 95/59 96 08/05/19 18:30 104 H 23 103/58 95 08/05/19 18:15 106 H 35 H 106/60 95 08/05/19 18:00 100.8 F H 106 H 28 H 107/57 95 08/05/19 17:30 107 H 28 H 101/54 95 08/05/19 17:00 111 H 20 107/58 96 08/05/19 16:30 112 H 23 107/61 96 08/05/19 16:00 116 H 29 H 105/59 94 L 08/05/19 15:30 121 H 27 H 118/64 86 L Intake and Output 08/06/19 08/06/19 08/06/19 06:59 14:59 22:59 Intake Total 748.756 6842.883 Output Total 440 630 Balance 539.017 698.883 Intake: IV 648 803 Cefepime 2 gm In Sodium 100 Chloride 0.9% 100 ml @ 200 mls/hr IVPB ONCE STA Rx#:[id number] Dextrose 5% in Water 1, 225 000 ml @ 75 mls/hr IV . [id number] [facility] with Sodium Bicarb (1 Meq/ml) 150 ml Rx#:[id number] Magnesium Sulfate-D5w Pmx 100 1 gm In Dextrose/Water 1 100ml.bag @ 100 mls/hr IVPB Q1H [facility] Rx#: [id number] Pressure bag 48 48 Sodium Chloride 0.9% 1, 600 330 000 ml @ 75 mls/hr IV . [id number] [facility] Rx#:[id number] Intake, IV Titration 331.017 405.883 Amount Norepinephrine 4 mg In 254 254.000 Sodium Chloride 0.9% 250 ml @ 0.05 MCG/KG/MIN 17. 282 mls/hr IV .[id number] [facility] Rx#:[id number] Propofol 1,000 mg In 77.017 151.883 Empty Bag 1 bag @ Titrate IV .Q0M [facility] Rx#: [id number] Oral 120 Output: Gastric Drainage 280 Urine 440 350 Other: Voiding Method Indwelling Catheter Indwelling Catheter Weight 106.6 kg 106.6 kg ABP, PAP, CO, CI - Last 8 Hours Arterial Blood Pressure 105/51 Arterial Blood Pressure 122/55 Arterial Blood Pressure 126/58 Arterial Blood Pressure 124/58 Arterial Blood Pressure 119/54 Arterial Blood Pressure 119/55 Arterial Blood Pressure 123/56 Arterial Blood Pressure 120/55 Arterial Blood Pressure 117/54 Arterial Blood Pressure 111/51 Arterial Blood Pressure 112/51 Arterial Blood Pressure 111/52 Arterial Blood Pressure 110/52 Arterial Blood Pressure 109/51 Arterial Blood Pressure 109/52 Arterial Blood Pressure 106/50 Arterial Blood Pressure 106/50 Arterial Blood Pressure 105/50 Arterial Blood Pressure 107/50 Arterial Blood Pressure 109/51 Arterial Blood Pressure 108/51 Arterial Blood Pressure 106/50 Arterial Blood Pressure 101/48 Arterial Blood Pressure 101/50 Arterial Blood Pressure 100/50 Arterial Blood Pressure 95/49 Arterial Blood Pressure 97/49 Arterial Blood Pressure 98/50 Arterial Blood Pressure 99/50 Arterial Blood Pressure 94/48 GENERAL DESCRIPTION: Middle-aged male intubated on the vent. No tachypnea or accessory muscle of respiration use. HEENT: Shows Pallor , no scleral icterus. Oral mucous membrane is dry. NECK: Trachea central, no thyromegaly. LUNGS: Unlabored breathing. Decreased breath sound at the base HEART: S1, S2, regular rate and rhythm. ABDOMEN: Soft, no tenderness , guarding or rigidity EXTREMITIES: No edema of feet. SKIN: No rash, no masses palpable. NEUROLOGICAL: The patient is sedated on the vent. Results CBC & Chem 7: 08/06/19 04:15 08/06/19 04:15 Labs: Abnormal Lab Results - Last 24 Hours (Table) 08/05/19 08/05/19 08/05/19 Range/Units 11:00 11:00 16:53 RDW (11.5-15.5) % Lymphocytes # (Manual) (1.0-4.8) k/uL Metamyelocytes # (Man) (0) k/uL Myelocytes # (Manual) (0) k/uL PT (9.0-12.0) sec INR (<1.2) ABG pH (7.35-7.45) ABG pCO2 (35-45) mmHg ABG pO2 (83-108) mmHg ABG HCO3 (21-25) mmol/L ABG O2 Saturation (94-97) % Potassium (3.5-5.1) mmol/L Chloride (98-107) mmol/L Carbon Dioxide (22-30) mmol/L BUN (9-20) mg/dL Glucose (74-99) mg/dL POC Glucose (mg/dL) (75-99) mg/dL Plasma Lactic Acid Héctor 2.7 H* (0.7-2.0) mmol/L Calcium (8.4-10.2) mg/dL Ferritin 2732.3 H (22.0-322.0) ng/mL AST (17-59) U/L ALT (4-49) U/L Lactate Dehydrogenase (313-618) U/L Creatine Kinase (55-170) U/L Total Protein (6.3-8.2) g/dL Albumin (3.5-5.0) g/dL Procalcitonin 8.75 H (0.02-0.09) ng/mL 08/05/19 08/05/19 08/05/19 Range/Units 16:53 16:57 20:30 RDW (11.5-15.5) % Lymphocytes # (Manual) (1.0-4.8) k/uL Metamyelocytes # (Man) (0) k/uL Myelocytes # (Manual) (0) k/uL PT 12.9 H (9.0-12.0) sec INR 1.3 H (<1.2) ABG pH 7.19 L* (7.35-7.45) ABG pCO2 57 H (35-45) mmHg ABG pO2 (83-108) mmHg ABG HCO3 (21-25) mmol/L ABG O2 Saturation (94-97) % Potassium (3.5-5.1) mmol/L Chloride (98-107) mmol/L Carbon Dioxide (22-30) mmol/L BUN (9-20) mg/dL Glucose (74-99) mg/dL POC Glucose (mg/dL) 110 H (75-99) mg/dL Plasma Lactic Acid Héctor (0.7-2.0) mmol/L Calcium (8.4-10.2) mg/dL Ferritin (22.0-322.0) ng/mL AST (17-59) U/L ALT (4-49) U/L Lactate Dehydrogenase (313-618) U/L Creatine Kinase (55-170) U/L Total Protein (6.3-8.2) g/dL Albumin (3.5-5.0) g/dL Procalcitonin (0.02-0.09) ng/mL 08/06/19 08/06/19 08/06/19 Range/Units 04:15 04:15 04:15 RDW 16.3 H (11.5-15.5) % Lymphocytes # (Manual) 0.51 L (1.0-4.8) k/uL Metamyelocytes # (Man) 1.90 H (0) k/uL Myelocytes # (Manual) 0.73 H (0) k/uL PT (9.0-12.0) sec INR (<1.2) ABG pH (7.35-7.45) ABG pCO2 (35-45) mmHg ABG pO2 (83-108) mmHg ABG HCO3 (21-25) mmol/L ABG O2 Saturation (94-97) % Potassium 5.4 H (3.5-5.1) mmol/L Chloride 112 H (98-107) mmol/L Carbon Dioxide 19 L (22-30) mmol/L BUN 67 H (9-20) mg/dL Glucose 146 H (74-99) mg/dL POC Glucose (mg/dL) (75-99) mg/dL Plasma Lactic Acid Héctor (0.7-2.0) mmol/L Calcium 6.5 L (8.4-10.2) mg/dL Ferritin 6363.4 H (22.0-322.0) ng/mL AST 3354 H (17-59) U/L ALT 1962 H (4-49) U/L Lactate Dehydrogenase 8367 H (313-618) U/L Creatine Kinase 6114 H* (55-170) U/L Total Protein 5.5 L (6.3-8.2) g/dL Albumin 3.0 L (3.5-5.0) g/dL Procalcitonin (0.02-0.09) ng/mL 08/06/19 08/06/19 Range/Units 04:17 13:41 RDW (11.5-15.5) % Lymphocytes # (Manual) (1.0-4.8) k/uL Metamyelocytes # (Man) (0) k/uL Myelocytes # (Manual) (0) k/uL PT (9.0-12.0) sec INR (<1.2) ABG pH 7.12 L* 7.24 L (7.35-7.45) ABG pCO2 58 H 47 H (35-45) mmHg ABG pO2 187 H (83-108) mmHg ABG HCO3 19 L 20 L (21-25) mmol/L ABG O2 Saturation 98.4 H (94-97) % Potassium (3.5-5.1) mmol/L Chloride (98-107) mmol/L Carbon Dioxide (22-30) mmol/L BUN (9-20) mg/dL Glucose (74-99) mg/dL POC Glucose (mg/dL) (75-99) mg/dL Plasma Lactic Acid Héctor (0.7-2.0) mmol/L Calcium (8.4-10.2) mg/dL Ferritin (22.0-322.0) ng/mL AST (17-59) U/L ALT (4-49) U/L Lactate Dehydrogenase (313-618) U/L Creatine Kinase (55-170) U/L Total Protein (6.3-8.2) g/dL Albumin (3.5-5.0) g/dL Procalcitonin (0.02-0.09) ng/mL Microbiology - Last 24 Hours (Table) 08/05/19 16:53 Blood Culture - Final Blood 08/05/19 21:56 Gram Stain - Preliminary Sputum Sputum Culture - Preliminary 08/05/19 18:20 Urine Culture - Preliminary Urine,Catheterized Assessment and Plan Assessment: 1-patient presented hospital with sepsis in this patient who did have a fever tachycardia elevated white count hypoxemia and pulmonary treated concern likely for pneumonia with a question of possible community-acquired underlying COVID-19 infection less likely as the patient had did have a significant elevated procalcitonin which is usually indicated of a bacterial infection or other than viral pneumonia. 2-patient with elevated liver enzymes questionably venous congestion versus intra-abdominal source of infection (1) Sepsis Current Visit: Yes Status: Acute Code(s): A41.9 - SEPSIS, UNSPECIFIED ORGANISM SNOMED Code(s): 80783398 (2) Pneumonia Current Visit: Yes Status: Acute Code(s): J18.9 - PNEUMONIA, UNSPECIFIED ORGANISM SNOMED Code(s): 133133398 Plan: 1-vancomycin pharmacy to dose her with a target trough of 15 while watching her kidney function and Vanco trough closely and cefepime will provide adequate coverage for underlying pneumonia of bacterial origin 2-obtain a sputum for Gram stain and culture 3-check hepatitis panel 4-ultrasound abdomen to evaluate liver gallbladder We will follow on clinical condition and cultures to further adjust medication if needed Thank you for this consultation we will follow the patient along with you Time with Patient: Greater than 30
[2019-08-07 00:02] LABS: Glucose,Whole Blood 217 mg/dL (75-99)
[2019-08-07] MEDS: INSULIN ASPART (NovoLOG) 100 UNIT/ML VIAL SQ SCH ×4 (00:05→18:17)
[2019-08-07] MEDS: DEXTROSE 5% IN WATER 1,000 ML with SODIUM BICARB (1 MEQ/ML) 150 ML IV SCH (00:20)
[2019-08-07] MEDS: AMIODARONE 300 MG in DEXTROSE 5% IN WATER 250 ML IV SCH ×6 (00:44→20:32)
[2019-08-07 04:55] LABS: Anisocytosis Slight; HCT 38.5 % (39.0-53.0); HGB 12.2 gm/dL (13.0-17.5); Hypochromasia Moderate; MCH 27.5 pg (25.0-35.0); MCHC 31.6 g/dL (31.0-37.0); MCV 86.8 fL (80.0-100.0); Mean Platelet Volume 8.4; Platelet Count 162 k/uL (150-450); RBC 4.44 m/uL (4.30-5.90); RDW 16.9 % (11.5-15.5)
[2019-08-07] MEDS: NOREPINEPHRINE 4 MG in SODIUM CHLORIDE 0.9% 250 ML IV SCH (05:02)
[2019-08-07 05:03] LABS: Potassium 4.4 mmol/L (3.5-5.1)
[2019-08-07 05:05] LABS: Albumin 2.8 g/dL (3.5-5.0); Magnesium 2.5 mg/dL (1.6-2.3); Total Bilirubin 0.7 mg/dL (0.2-1.3); Total Protein 5.4 g/dL (6.3-8.2)
[2019-08-07] MEDS: VANCOMYCIN 1,750 MG in SODIUM CHLORIDE 0.9% 500 ML 500 ML IVPB SCH ×2 (05:15→18:18)
[2019-08-07 05:21] LABS: Band Neutrophils % 36 %; Lymphocytes # (M) 0.68 k/uL (1.0-4.8); Metamyelocytes # (M) 0.86 k/uL (0); Metamyelocytes % 5 %; Monocytes # (M) 0.34 k/uL (0-1.0); Myelocytes # (M) 0.68 k/uL (0); Myelocytes % 4 %; Neutrophils % (M) 49 %; Nucleated Red Blood Cells 11 /100 WBC (0-0); Total Cells Counted 200; WBC 17.1 k/uL (3.8-10.6)
[2019-08-07 05:22] LABS: Large Platelets Present
[2019-08-07 05:26] LABS: ABG Base Excess -4.5 mmol/L; ABG HCO3 21 mmol/L (21-25); ABG Oxygen Saturation 96.5 % (94-97); ABG PCO2 37 mmHg (35-45); ABG PH 7.36 (7.35-7.45); ABG PO2 92 mmHg (83-108); ABG TCO2 22 mmol/L (19-24); Allen Test Performed? Yes
[2019-08-07 05:56] LABS: Glucose,Whole Blood 191 mg/dL (75-99)
[2019-08-07 06:11] LABS: Calcium 6.4 mg/dL (8.4-10.2)
[2019-08-07 06:15] LABS: C Reactive Protein 622.5 mg/L (<10.0)
--- NOTE | 2019-08-07 06:36 | XR ---
EXAMINATION TYPE: XR chest 1V portable DATE OF EXAM: 08/07/2019 CLINICAL HISTORY: Difficulty breathing progress study. TECHNIQUE: Single AP portable upright view of the chest is obtained. COMPARISON: Chest x-ray from one day earlier and older studies. FINDINGS: Stable orogastric tubes along with right internal jugular central venous catheter. Interva l slight advancement of endotracheal tube noted. Persistent partial visualization of metallic hardware left shoulder level. Chronic parenchymal change s with small bilateral pleural effusions redemonstrated. More prominent left infrahilar opacity on cu rrent study. Persistent right perihilar opacity. Cardiac silhouette size stable and within normal panchal its. IMPRESSION: Chronic parenchymal changes with worsening perihilar edema and/or infiltrates on backgrou nd progressive small bilateral pleural effusions.
[2019-08-07] MEDS ORDERED: CALCIUM GLUCONATE 1 GM in SODIUM CHLORIDE 0.9% 100 ML IVPB ONE (06:48)
--- NOTE | 2019-08-07 08:16 | US ---
EXAMINATION TYPE: US abdomen complete DATE OF EXAM: 08/07/2019 COMPARISON: CT June 02, 2017 CLINICAL HISTORY: elevated LFT. ICU patient EXAM MEASUREMENTS: Liver Length: 22.9 cm Gallbladder Wall: 0.6 cm CBD: 0.4 cm Spleen: 13.1 cm Right Kidney: 13.4 x 6.8 x 7.0 cm Left Kidney: 12.7 x 5.5 x 7.9 cm Pancreas: Appears echogenic in appearance. Tail obscured by overlying bowel gas. Echogenic focus wi th shadow = 0.6 cm. Liver: Appears enlarged in size. Left lobe echogenic area visualized with shadowing = 3.6 x 2.1 x 1 .1 cm Gallbladder: Appears mildly prominent in size = 10.9 cm. Thickened gallbladder wall. Evidence for sonographic Marquez's sign: neg CBD: wnl Spleen: wnl Right Kidney: Anterior cortical cyst = 0.9 x 0.9 x 0.8 cm Left Kidney: No hydronephrosis or masses seen, limited visualization of lower pole due to overlying bowel gas Upper IVC: wnl Abd Aorta: Obscured by overlying bowel gas The visualized liver is heterogeneously hyperechoic and enlarged. Shadowing hyperechoic area left he patic lobe of uncertain etiology. Evaluation for focal masses suboptimal due to the heterogeneity. Th e intrahepatic portion of the IVC and visualized abdominal aorta are within normal limits. There is no evidence of shadowing mobile cholelithiasis. Gallbladder wall has [id number] concentric wall thickening. Common bile duct is unremarkable. The visualized portions of the pancreas are heterogen eous. The spleen is unremarkable. Kidneys are symmetric and free of hydronephrosis. No greater solomon n 1 cm suspicious renal lesions are seen on images saved. IMPRESSION: Persistent hepatomegaly with heterogeneous hyperechoic appearance suggesting diffuse fatt y infiltration and/or underlying hepatocellular disease. Evaluation for focal masses suboptimal due t o the heterogeneity. Possible new 2.1 cm calcification or calcific mass in the left hepatic lobe. Con drafter electromechanical repeat CT evaluation. Gallbladder wall thickening likely on basis of underlying hepatocellular disease given lack of shadowing gallstones and negative sonographic Marquez's sign.
--- NOTE | 2019-08-07 08:38 | ECHOF ---
Referral Reason:hypotension, MEASUREMENTS -------- HEIGHT: 182.9 cm WEIGHT: 106.6 kg BP: IVSd: 1.0 cm (0.6 - 1.1) LVIDd: 4.5 cm (3.9 - 5.3) LVPWd: 1.3 cm (0.6 - 1.1) IVSs: 1.6 cm LVIDs: 1.6 cm LVPWs: 1.6 cm Ao Diam: 3.7 cm (2.0 - 3.7) AV Cusp: 2.2 cm (1.5 - 2.6) LA Diam: 2.5 cm (2.7 - 3.8) MV EXCURSION: 17.180 mm (> 18.000) MV EF SLOPE: 124 mm/s (70 - 150) MV E Peter: 0.42 m/s MV DecT: 175 ms MV A Peter: 0.38 m/s MV E/A Ratio: 1.09 RAP: 20.00 mmHg RVSP: 62.66 mmHg FINDINGS -------- Sinus rhythm. This was a technically difficult study with suboptimal views. The left ventricular size is normal. There is mild concentric left ventricular hypertrophy. Overa ll left ventricular systolic function is normal with, an EF between 55 - 60 %. The right ventricle is normal in size. The left atrial size is normal. The right atrial size is normal. Lumason used The aortic valve was not well visualized. There is trace mitral regurgitation. The tricuspid valve appears structurally normal. Mild tricuspid regurgitation present. There is m oderate pulmonary hypertension. The right ventricular systolic pressure, as measured by Doppler, is 62.66mmHg. There is no pulmonic regurgitation present. The aortic root size is normal. The inferior vena cava is dilated with no significant inspiratory collapse which is consistent estima beatrice right atrial pressure of >20 mmHg. There is no pericardial effusion. CONCLUSIONS -------- 1. Sinus rhythm. 2. This was a technically difficult study with suboptimal views. 3. The left ventricular size is normal. 4. There is mild concentric left ventricular hypertrophy. 5. Overall left ventricular systolic function is normal with, an EF between 55 - 60 %. 6. The right ventricle is normal in size. 7. The left atrial size is normal. 8. The right atrial size is normal. 9. Lumason used 10. The aortic valve was not well visualized. 11. There is trace mitral regurgitation. 12. The tricuspid valve appears structurally normal. 13. Mild tricuspid regurgitation present. 14. There is moderate pulmonary hypertension. 15. The right ventricular systolic pressure, as measured by Doppler, is 62.66mmHg. 16. There is no pulmonic regurgitation present. 17. The aortic root size is normal. 18. The inferior vena cava is dilated with no significant inspiratory collapse which is consistent es timated right atrial pressure of >20 mmHg. 19. There is no pericardial effusion. [employer] DRIVER: Ester Knight RDCS
[2019-08-07 09:30] LABS: Prothrombin Time 10.8 sec (9.0-12.0)
[2019-08-07] MEDS: PANTOPRAZOLE 40 MG/10 ML VIAL IV SCH (09:40)
[2019-08-07] MEDS: methylPREDNISolone SOD SUCCI 40 MG/ML 1 ML VIAL IV SCH ×2 (09:40→20:32)
[2019-08-07] MEDS: CHLORHEXIDINE GLUCONATE 15 ML CUP MUCOUS MEM SCH ×2 (09:40→20:32)
[2019-08-07] MEDS: ENOXAPARIN 80 MG/0.8 ML SYRINGE SQ SCH ×2 (09:40→20:32)
[2019-08-07] MEDS: VALPROIC ACID ORAL SOLN 250 MG/5 ML CUP OG-TUBE SCH ×2 (09:40→20:32)
[2019-08-07] MEDS: ASPIRIN 81 MG PO SCH (09:41)
[2019-08-07] MEDS: FAMOTIDINE 20 MG/2 ML VIAL IV SCH ×2 (09:41→20:32)
[2019-08-07] MEDS: METOPROLOL TARTRATE 25 MG TAB PO SCH ×2 (09:41→20:32)
[2019-08-07] MEDS: CEFEPIME 2 GM in SODIUM CHLORIDE 0.9% 100 ML IVPB SCH ×2 (09:43→20:33)
[2019-08-07] MEDS: SODIUM CHLORIDE 0.9% 1,000 ML IV SCH ×2 (09:47→23:32)
[2019-08-07 11:28] LABS: Glucose,Whole Blood 202 mg/dL (75-99)
--- NOTE | 2019-08-07 11:36 | P.PN ---
Subjective Progress Note Date: 08/07/19 62-year-old male patient who was brought into the emergency department today unresponsive and profoundly hypoxic. The patient was in acute hypoxic respiratory failure. Initial pulse ox was in the mid 30s. Apparently he was not also communicating or responding. He was apparently awake and alert on the morning prior to him coming to the hospital according to the landlord. The landlord noted that the patient was appearing ill and called EMS. Upon EMS arrival, the patient was found to be obtunded. He had a fever of 10 1F. He was found to be hypoxic, brought into the emergency room he was found to be tachycardic and hypoxic with was placed on supplemental oxygen without any benefit and ultimately the patient was intubated and placed on a mechanical ventilator. COVID 19 is suspected. The patient was placed on the opposite isolation. The patient had the appropriate nasal swabs. Chest x-ray showed bilateral airspace disease consistent with pneumonia in addition to interstitial pneumonitis. ET tube was around 3.7 cm above the mario. NG tube was extending into the left abdomen. There was a right upper lobe consolidation noted and a tiny right-sided pleural effusion. No evidence of any pneumothorax. There was bilateral infiltrates and coarse interstitium and a prosthetic left shoulder. The patient has a white cell count of 4.9. He had some lymphopenia. His platelet counts is no within normal limits. The blood gases was done on 100% nonrebreather showed a pH of 7.17 with a pCO2 of 66 and pO2 of 45. The patient also had an acute kidney injury with a creatinine of 1.65. Epigastric level was at 3.1. The ALT is at 1106 with an ammonia level of 146 and a bilirubin of 0.5 and an albumin of 4.1. The serum alcohol was negative and the patient has negative salicylates and acetaminophen. Influenza screen has been negative. Covid 19 analysis still pending for now. This patient lives with a sister in a house and he collects Social Security disability. He has had issues with mental health and the patient has been dealing with bipolar disorder and chronic insomnia of many years duration. He has also chronic anxiety disorder. No history of any previous suicidal ideation or intent. No delusions or hallucinations based on recent psychiatric evaluation that was in the hospital. On today's evaluation of 62,020 the patient is being seen in follow-up in the in tensive care unit. Noted the patient is intubated on a mechanical ventilator and is suspected to have Covid 19. He is afebrile on today's evaluation. He remains on a mechanical ventilator. He is sedated with propofol running at 20 mg per KG per minute. He was given a total of 5 L of IV fluid as the patient was hypotensive and currently the fluid is running at 75 mL an hour of normal saline. He remains on norepinephrine infusion at 0.08 mg per KG per minute. He remains on a mechanical ventilator. His assist-control mode at the rate of 28 with a tidal volume of 450 and FiO2 of 60% with a PEEP of 15. His blood gases showed a pH of 7.12 with a pCO2 of 58 and pO2 of 187. This was done and FiO2 of 100%. Otherwise, the patient has blood abnormalities it is consistent with Covid 19 infection. He has a rhabdomyolysis with a CPK level of 6114. He has also transaminitis with a AST of 3354, ALT of 1962, and his LDH level is at 8367. His creatinine is at 1.2, which is up from a baseline of 1.65 with fluid resuscitation. His current minute ventilation is 13 L. I made recommendations to keep the same vent setting. Based on the blood on of some non-anion gap metabolic acidosis, and with recommendations to start the patient on bicarb infusion and addition to 2 A of IV bicarb pushes. He was having temperatures throughout the night with temperature maximum 100.8. Current temperature is 99.6. He'll be started on enteral feeding for nutritional support. Covid 19 evaluation is still pending for now. On today's evaluation of 08/07/2019 and seeing this patient for a follow-up. The patient has sedated with propofol. He was given a sedation holiday yesterday and his neurologic exam was suboptimal as the patient did not show adequate neurologic recovery. Based on that, a CAT scan of the brain was done and the CAT scan of the brain was negative for any acute abnormalities. Noted the patient was profoundly hypoxic and at time of admission to the hospital and there is a suspicion for hypoxic encephalopathy. Contrary to my expectations, the patient checked negative for Covid 19 infection. The blood culture came back positive for staph aureus. Currently is on a combination of cefepime and vancomycin. The patient was resuscitated with more than 5 L of normal saline and the patient is also requiring some pressors for hemodynamic support and levo fed was started and 8 on was placed on hold as of 5:00 this morning. Urine output in the order of 40 mL an hour. In terms of sedation, the patient is on propofol at 20 g per KG per minute. Note that the patient had issues with a significant leak around his orotracheal tube. This was replaced yesterday by [employer] without any major difficulties. This morning, he remains on a VC plus mode with a rate of 28 and a tidal volume of 450 and a nighttime of 1 second with a PEEP of 15 with an FiO2 of 50%. Blood gases from today showed a pH of 7.36 with a pCO2 of 37 and pO2 of 92. Chest x-ray showing diffuse bilateral pulmonary infiltrates. His cardiac rhythm is still in atrial fibrillation. He is on amiodarone maintenance at 0.5 mg per minute. The patient has a creatinine of 1.5. There is still evidence of transaminitis with elevation of the AST and ALP and both are improving. LDH level is elevated at 5738. CPKs improving at 2431. C-reactive protein is elevated at 622. Note that the LDH is on the decline, CPKs on the decline on today's evaluation. LFTs are also improving. Objective - Vital Signs Vital signs: Vital Signs Temp 99.0 F 08/07/19 08:00 Pulse 128 H 08/07/19 08:30 Resp 28 H 08/07/19 08:30 BP 107/78 08/07/19 08:00 Pulse Ox 97 08/07/19 08:30 Intake & Output 08/06/19 08/07/19 08/07/19 18:59 06:59 18:59 Intake Total 1897.498 5146.935 889 Output Total 810 309 80 Balance 9923.033 4324.935 809 Weight 106.6 kg 104.8 kg Intake: IV 1259 1184 829 Cefepime 2 gm In Sodium 100 Chloride 0.9% 100 ml @ 200 mls/hr IVPB ONCE STA Rx#:[id number] Cefepime 2 gm In Sodium 100 Chloride 0.9% 100 ml @ 200 mls/hr IVPB Q12HR [facility] Rx#:[id number] Dextrose 5% in Water 1, 450 825 150 000 ml @ 75 mls/hr IV . [id number] [facility] with Sodium Bicarb (1 Meq/ml) 150 ml Rx#:[id number] Magnesium Sulfate-D5w Pmx 100 1 gm In Dextrose/Water 1 100ml.bag @ 100 mls/hr IVPB Q1H [facility] Rx#: [id number] Pressure bag 72 72 12 Sodium Chloride 0.9% 1, 370 20 000 ml @ 75 mls/hr IV . [id number] [facility] Rx#:[id number] Vancomycin 1,750 mg In 167 167 667 Sodium Chloride 0.9% 500 ml 500 ml @ 167 mls/hr IVPB Q12H [facility] Rx#: [id number] Intake, IV Titration 569.435 237.935 Amount Norepinephrine 4 mg In 408.384 104.609 Sodium Chloride 0.9% 250 ml @ 0.05 MCG/KG/MIN 17. 282 mls/hr IV .[id number] [facility] Rx#:[id number] Propofol 1,000 mg In 161.051 133.326 Empty Bag 1 bag @ Titrate IV .Q0M [facility] Rx#: [id number] Oral 150 Tube Feeding 210 60 Other 20 90 Output: Gastric Drainage 280 Urine 530 309 80 Other: Voiding Method Indwelling Catheter Indwelling Catheter Indwelling Catheter ABP, PAP, CO, CI - Last Documented Arterial Blood Pressure 112/66 - Exam Gen. appearance, comfortable sedated nonacute distress intubated on a mechanical ventilator. Orogastric and orotracheal tube are both in place Head exam was generally normal. There was no scleral icterus or corneal arcus. Mucous membranes were moist. Neck was supple and without jugular venous distension, thyromegaly, or carotid bruits. Carotids were easily palpable bilaterally. There was no adenopathy. Lungs were clear to auscultation and percussion, and with normal diaphragmatic excursion. No wheezes or rales were noted. Cardiac exam revealed the PMI to be normally situated and sized. The rhythm was regular and no extrasystoles were noted during several minutes of auscultation. The first and second heart sounds were normal and physiologic splitting of the second heart sound was noted. There were no murmurs, rubs, clicks, or gallops. Abdominal exam revealed normal bowel sounds. The abdomen was soft, non-tender, and without masses, organomegaly, or appreciable enlargement of the abdominal aorta. Examination of the extremities revealed easily palpable radial, femoral and pedal pulses. There was no cyanosis, clubbing or edema. Examination of the skin revealed no evidence of significant rashes, suspicious appearing nevi or other concerning lesions. Neurologically the patient sedated, comfortable no acute distress. - Labs CBC & Chem 7: 08/07/19 04:35 08/07/19 04:35 Labs: Abnormal Lab Results - Last 24 Hours (Table) 08/06/19 08/06/19 08/06/19 Range/Units 04:15 13:41 18:40 WBC (3.8-10.6) k/uL Hgb (13.0-17.5) gm/dL Hct (39.0-53.0) % RDW (11.5-15.5) % Neutrophils # (Manual) (1.3-7.7) k/uL Lymphocytes # (Manual) (1.0-4.8) k/uL Metamyelocytes # (Man) (0) k/uL Myelocytes # (Manual) (0) k/uL Nucleated RBCs (0-0) /100 WBC D-Dimer (<0.60) mg/L FEU ABG pH 7.24 L (7.35-7.45) ABG pCO2 47 H (35-45) mmHg ABG HCO3 20 L (21-25) mmol/L Chloride (98-107) mmol/L BUN (9-20) mg/dL Creatinine (0.66-1.25) mg/dL Glucose (74-99) mg/dL POC Glucose (mg/dL) 172 H (75-99) mg/dL Calcium (8.4-10.2) mg/dL Magnesium (1.6-2.3) mg/dL Ferritin 6363.4 H (22.0-322.0) ng/mL AST (17-59) U/L ALT (4-49) U/L Ammonia (<30) umol/L Lactate Dehydrogenase (313-618) U/L Creatine Kinase (55-170) U/L C-Reactive Protein (<10.0) mg/L Total Protein (6.3-8.2) g/dL Albumin (3.5-5.0) g/dL 08/06/19 08/07/19 08/07/19 Range/Units 19:59 00:01 04:35 WBC 17.1 H (3.8-10.6) k/uL Hgb 12.2 L (13.0-17.5) gm/dL Hct 38.5 L (39.0-53.0) % RDW 16.9 H (11.5-15.5) % Neutrophils # (Manual) 14.50 H (1.3-7.7) k/uL Lymphocytes # (Manual) 0.68 L (1.0-4.8) k/uL Metamyelocytes # (Man) 0.86 H (0) k/uL Myelocytes # (Manual) 0.68 H (0) k/uL Nucleated RBCs 11 H (0-0) /100 WBC D-Dimer (<0.60) mg/L FEU ABG pH (7.35-7.45) ABG pCO2 (35-45) mmHg ABG HCO3 (21-25) mmol/L Chloride (98-107) mmol/L BUN (9-20) mg/dL Creatinine (0.66-1.25) mg/dL Glucose (74-99) mg/dL POC Glucose (mg/dL) 166 H 217 H (75-99) mg/dL Calcium (8.4-10.2) mg/dL Magnesium (1.6-2.3) mg/dL Ferritin (22.0-322.0) ng/mL AST (17-59) U/L ALT (4-49) U/L Ammonia (<30) umol/L Lactate Dehydrogenase (313-618) U/L Creatine Kinase (55-170) U/L C-Reactive Protein (<10.0) mg/L Total Protein (6.3-8.2) g/dL Albumin (3.5-5.0) g/dL 08/07/19 08/07/19 08/07/19 Range/Units 04:35 04:35 05:54 WBC (3.8-10.6) k/uL Hgb (13.0-17.5) gm/dL Hct (39.0-53.0) % RDW (11.5-15.5) % Neutrophils # (Manual) (1.3-7.7) k/uL Lymphocytes # (Manual) (1.0-4.8) k/uL Metamyelocytes # (Man) (0) k/uL Myelocytes # (Manual) (0) k/uL Nucleated RBCs (0-0) /100 WBC D-Dimer 33.03 H (<0.60) mg/L FEU ABG pH (7.35-7.45) ABG pCO2 (35-45) mmHg ABG HCO3 (21-25) mmol/L Chloride 109 H (98-107) mmol/L BUN 83 H (9-20) mg/dL Creatinine 1.55 H (0.66-1.25) mg/dL Glucose 189 H (74-99) mg/dL POC Glucose (mg/dL) 191 H (75-99) mg/dL Calcium 6.4 L* (8.4-10.2) mg/dL Magnesium 2.5 H (1.6-2.3) mg/dL Ferritin (22.0-322.0) ng/mL AST 2996 H (17-59) U/L ALT 2751 H (4-49) U/L Ammonia (<30) umol/L Lactate Dehydrogenase 5738 H (313-618) U/L Creatine Kinase 2431 H* (55-170) U/L C-Reactive Protein 622.5 H (<10.0) mg/L Total Protein 5.4 L (6.3-8.2) g/dL Albumin 2.8 L (3.5-5.0) g/dL 08/07/19 08/07/19 Range/Units 06:50 11:26 WBC (3.8-10.6) k/uL Hgb (13.0-17.5) gm/dL Hct (39.0-53.0) % RDW (11.5-15.5) % Neutrophils # (Manual) (1.3-7.7) k/uL Lymphocytes # (Manual) (1.0-4.8) k/uL Metamyelocytes # (Man) (0) k/uL Myelocytes # (Manual) (0) k/uL Nucleated RBCs (0-0) /100 WBC D-Dimer (<0.60) mg/L FEU ABG pH (7.35-7.45) ABG pCO2 (35-45) mmHg ABG HCO3 (21-25) mmol/L Chloride (98-107) mmol/L BUN (9-20) mg/dL Creatinine (0.66-1.25) mg/dL Glucose (74-99) mg/dL POC Glucose (mg/dL) 202 H (75-99) mg/dL Calcium (8.4-10.2) mg/dL Magnesium (1.6-2.3) mg/dL Ferritin (22.0-322.0) ng/mL AST (17-59) U/L ALT (4-49) U/L Ammonia 97 H (<30) umol/L Lactate Dehydrogenase (313-618) U/L Creatine Kinase (55-170) U/L C-Reactive Protein (<10.0) mg/L Total Protein (6.3-8.2) g/dL Albumin (3.5-5.0) g/dL Microbiology - Last 24 Hours (Table) 08/05/19 16:53 Blood Culture Gram Stain - Preliminary Blood Blood Culture - Preliminary Presumptive Staph aureus 08/05/19 18:20 Urine Culture - Final Urine,Catheterized 08/05/19 16:53 Blood Culture - Final Blood 08/05/19 21:56 Gram Stain - Preliminary Sputum Sputum Culture - Preliminary Assessment and Plan Plan: 1 acute hypoxic/hypercapnic respiratory failure with development of diffuse breath and pulmonary interstitial infiltrates in addition to areas of consolidation bilaterally. Highly suspected Covid 19 pneumonia with secondary respiratory failure. Nevertheless, the analysis came back negative. I think this needs to be repeated as it may dictate future treatment on this patient which includes various antiviral agents or various treatment status hours Covid 19 infection. Upon further discussion with the family, the patient apparently was having nausea and emesis and he was having a lot of emesis at time of EMS arriving to the scene and I suspect possibly a component of aspiration. Meanwhile, the patient's blood culture came back positive for gram-positive cocci in clusters and this is turning out to be staph aureus further cultures and sensitivities are still pending for now. 2 acute ventilator-dependent respiratory failure secondary to above, see above discussion 3 acute febrile illness secondary to above, still having low-grade fever 4 acute kidney injury with a creatinine 1.55 on today's evaluation 5 acute lactic acidosis, improved 6 diminished level of consciousness and the patient came into the emergency unresponsive secondary to profound hypoxemia. The patient's blood gas showed a component of an acute hypoxemic and hypercapnic respiratory failure. 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 14 suspecting hypoxic encephalopathy based on the above-mentioned presentation 15 staph aureus septicemia 16 suspicion for aspiration. Plan I'm going to switch this patient with normal state rate of 75 mL an hour and discontinue the bicarb drip Drop the PEEP down to 13 and gradually dropped down to 11 if possible Echocardiogram was noted Repeat the Covid 19 evaluation through a nasopharyngeal or a sample from the orotracheal tube Continue the amiodarone Monitor liver function test Monitor CPK Repeat coagulation profile and consider lowering the Lovenox dosage the patient is coagulopathic from transaminitis a shock liver Continue IV Solu-Medrol Continued IV cefepime and vancomycin Repeat pro-calcitonin Sedation holiday and if needed restart the patient on Versed instead of propofol Continue enteral feeding for nutritional support Monitor inflammatory markers including d-dimer, LDH, CPK, and CRP Echo of the heart was noted We'll continue to follow This is a critically care evaluation that was on a than 30 minutes. We'll continue to follow Time with Patient: Greater than 30
[2019-08-07 13:57] LABS: Hepatitis A Antibody IgM Non-Reactive (Non-Reactive); Hepatitis B Core IgM Non-Reactive (Non-Reactive); Hepatitis B Surface Antigen Non-Reactive (Non-Reactive); Hepatitis C IgG Antibody Non-Reactive (Non-Reactive)
--- NOTE | 2019-08-07 14:28 | P.PN ---
Subjective Patient is admitted for acute hypoxic and hypercapnic respiratory failure which was believed to be secondary to Covid 19 pneumonia patient is presently on FiO2 of 60%. Patient does have related troponin by highly elevated be high d-dimer is of which patient is on anti-correlation dose of the Lovenox. Patient scored 19 is pending patient has chest x-ray findings consistent with the pulmonary edema or atypical pneumonia or Covid 19 pneumonia along with the significant transaminitis elevated highly elevated LDH highly elevated. Ferritin and si gnificant lymphopenia ration continues to have fever. Patient also has acute renal failure secondary to possibly acute tubular necrosis patient is on sodium bicarbonate and D5 because of hyperkalemia. 08/07/2019 Patient the white blood cell count went up to 17,000. His blood cultures are positive for staph aureus we'll repeat the blood cultures tomorrow. Patient liver enzymes are elevated because of shock liver ultrasound did not show significant abnormality. Patient had an elevated ammonia yesterday which is actually better now after lactulose, patient is off pressors. Patient remains on amiodarone. Computed tomography scan of the brain did not show any significant abnormality patient Covid 19 is negative patient remains on cefepime and vancomycin. Primary source is probably lung. Patient has fairly good urine output at 400 mL per hour on volume control ventilation set up respiratory rate of 28 total volume of 450 PEEP of 15 episode of 50% patient's hypercapnic respiratory failure improved and hypoxic respiratory failure improved patient has pH of 7.36 pCO2 of 37 Review Of systems: Unable to obtain due to his clinical condition. All inpatient medications were reviewed and appropriate changes in these medications as dictated in the interval history and assessment and plan. Objective - Vital Signs Vital signs: Vital Signs Temp 99.8 F H 08/07/19 12:00 Pulse 115 H 08/07/19 12:15 Resp 15 08/07/19 12:15 BP 120/90 08/07/19 12:00 Pulse Ox 97 08/07/19 12:15 Intake & Output 08/06/19 08/07/19 08/07/19 18:59 06:59 18:59 Intake Total 6954.513 3961.935 1781 Output Total 810 309 305 Balance 9642.323 4389.935 1476 Weight 106.6 kg 104.8 kg Intake: IV 1259 1184 1241 Amiodarone 300 mg In 100 Dextrose 5% in Water 250 ml @ 0.5 MG/MIN 25 mls/hr IV .Q10H [facility] Rx#: [id number] Calcium Gluconate 1 gm In 100 Sodium Chloride 0.9% 100 ml @ 100 mls/hr IVPB ONCE ONE Rx#:[id number] Cefepime 2 gm In Sodium 100 Chloride 0.9% 100 ml @ 200 mls/hr IVPB ONCE STA Rx#:[id number] Cefepime 2 gm In Sodium 100 100 Chloride 0.9% 100 ml @ 200 mls/hr IVPB Q12HR [facility] Rx#:[id number] Dextrose 5% in Water 1, 450 825 150 000 ml @ 75 mls/hr IV . [id number] [facility] with Sodium Bicarb (1 Meq/ml) 150 ml Rx#:[id number] Magnesium Sulfate-D5w Pmx 100 1 gm In Dextrose/Water 1 100ml.bag @ 100 mls/hr IVPB Q1H [facility] Rx#: [id number] Pressure bag 72 72 36 Sodium Chloride 0.9% 1, 370 20 000 ml @ 75 mls/hr IV . [id number] [facility] Rx#:[id number] Sodium Chloride 0.9% 1, 255 000 ml @ 75 mls/hr IV . [id number] [facility] Rx#:[id number] Vancomycin 1,750 mg In 167 167 500 Sodium Chloride 0.9% 500 ml 500 ml @ 167 mls/hr IVPB Q12H [facility] Rx#: [id number] Intake, IV Titration 569.435 237.935 250 Amount Amiodarone 300 mg In 250 Dextrose 5% in Water 250 ml @ 0.5 MG/MIN 25 mls/hr IV .Q10H [facility] Rx#: [id number] Norepinephrine 4 mg In 408.384 104.609 Sodium Chloride 0.9% 250 ml @ 0.05 MCG/KG/MIN 17. 282 mls/hr IV .[id number] [facility] Rx#:[id number] Propofol 1,000 mg In 161.051 133.326 Empty Bag 1 bag @ Titrate IV .Q0M [facility] Rx#: [id number] Oral 150 50 Tube Feeding 210 180 Other 20 90 60 Output: Gastric Drainage 280 Urine 530 309 305 Other: Voiding Method Indwelling Catheter Indwelling Catheter Indwelling Catheter ABP, PAP, CO, CI - Last Documented Arterial Blood Pressure 127/72 - Exam PHYSICAL EXAMINATION: GENERAL: Patient is intubated sedated and vented to settings as mentioned above patient is a FiO2 of 60% PEEP of 15 pedal volume of 450 set up respiratory rate of 28 assist-control ventilation. ABGs hypoxic hypercapnic respiratory failure with pH of 7.17 pCO2 66 by mouth to 45 bicarbonate 19 HEENT: Pupils are round and equally reacting to light. EOMI. No scleral icterus. No conjunctival pallor. Normocephalic, atraumatic. No pharyngeal erythema. No th yromegaly. CARDIOVASCULAR: S1 and S2 present. No murmurs, rubs, or gallops. PULMONARY: Chest is clear to auscultation, no wheezing or crackles. ABDOMEN: Soft, nontender, nondistended, normoactive bowel sounds. No palpable organomegaly. MUSCULOSKELETAL: No joint swelling or deformity. EXTREMITIES: No cyanosis, clubbing, or pedal edema. NEUROLOGICAL: Gross neurological examination did not reveal any focal deficits. SKIN: No rashes. - Labs CBC & Chem 7: 08/07/19 04:35 08/07/19 04:35 Labs: Abnormal Lab Results - Last 24 Hours (Table) 08/06/19 08/06/19 08/07/19 Range/Units 18:40 19:59 00:01 WBC (3.8-10.6) k/uL Hgb (13.0-17.5) gm/dL Hct (39.0-53.0) % RDW (11.5-15.5) % Neutrophils # (Manual) (1.3-7.7) k/uL Lymphocytes # (Manual) (1.0-4.8) k/uL Metamyelocytes # (Man) (0) k/uL Myelocytes # (Manual) (0) k/uL Nucleated RBCs (0-0) /100 WBC D-Dimer (<0.60) mg/L FEU Chloride (98-107) mmol/L BUN (9-20) mg/dL Creatinine (0.66-1.25) mg/dL Glucose (74-99) mg/dL POC Glucose (mg/dL) 172 H 166 H 217 H (75-99) mg/dL Calcium (8.4-10.2) mg/dL Magnesium (1.6-2.3) mg/dL AST (17-59) U/L ALT (4-49) U/L Ammonia (<30) umol/L Lactate Dehydrogenase (313-618) U/L Creatine Kinase (55-170) U/L C-Reactive Protein (<10.0) mg/L Total Protein (6.3-8.2) g/dL Albumin (3.5-5.0) g/dL 08/07/19 08/07/19 08/07/19 Range/Units 04:35 04:35 04:35 WBC 17.1 H (3.8-10.6) k/uL Hgb 12.2 L (13.0-17.5) gm/dL Hct 38.5 L (39.0-53.0) % RDW 16.9 H (11.5-15.5) % Neutrophils # (Manual) 14.50 H (1.3-7.7) k/uL Lymphocytes # (Manual) 0.68 L (1.0-4.8) k/uL Metamyelocytes # (Man) 0.86 H (0) k/uL Myelocytes # (Manual) 0.68 H (0) k/uL Nucleated RBCs 11 H (0-0) /100 WBC D-Dimer 33.03 H (<0.60) mg/L FEU Chloride 109 H (98-107) mmol/L BUN 83 H (9-20) mg/dL Creatinine 1.55 H (0.66-1.25) mg/dL Glucose 189 H (74-99) mg/dL POC Glucose (mg/dL) (75-99) mg/dL Calcium 6.4 L* (8.4-10.2) mg/dL Magnesium 2.5 H (1.6-2.3) mg/dL AST 2996 H (17-59) U/L ALT 2751 H (4-49) U/L Ammonia (<30) umol/L Lactate Dehydrogenase 5738 H (313-618) U/L Creatine Kinase 2431 H* (55-170) U/L C-Reactive Protein 622.5 H (<10.0) mg/L Total Protein 5.4 L (6.3-8.2) g/dL Albumin 2.8 L (3.5-5.0) g/dL 08/07/19 08/07/19 08/07/19 Range/Units 05:54 06:50 11:26 WBC (3.8-10.6) k/uL Hgb (13.0-17.5) gm/dL Hct (39.0-53.0) % RDW (11.5-15.5) % Neutrophils # (Manual) (1.3-7.7) k/uL Lymphocytes # (Manual) (1.0-4.8) k/uL Metamyelocytes # (Man) (0) k/uL Myelocytes # (Manual) (0) k/uL Nucleated RBCs (0-0) /100 WBC D-Dimer (<0.60) mg/L FEU Chloride (98-107) mmol/L BUN (9-20) mg/dL Creatinine (0.66-1.25) mg/dL Glucose (74-99) mg/dL POC Glucose (mg/dL) 191 H 202 H (75-99) mg/dL Calcium (8.4-10.2) mg/dL Magnesium (1.6-2.3) mg/dL AST (17-59) U/L ALT (4-49) U/L Ammonia 97 H (<30) umol/L Lactate Dehydrogenase (313-618) U/L Creatine Kinase (55-170) U/L C-Reactive Protein (<10.0) mg/L Total Protein (6.3-8.2) g/dL Albumin (3.5-5.0) g/dL Microbiology - Last 24 Hours (Table) 08/05/19 16:53 Blood Culture Gram Stain - Preliminary Blood Blood Culture - Preliminary Presumptive Staph aureus 08/05/19 18:20 Urine Culture - Final Urine,Catheterized 08/05/19 16:53 Blood Culture - Final Blood Assessment and Plan Plan: Acute hypoxic and hypercapnic respiratory failure probably secondary to sepsis from a staphylococcal bacteremia possible COPD exacerbation. Continue ventilator support with the above-mentioned vent settings continue with inhalational treatments patient is on systemic steroids mostly for covid 19. -Sepsis shock shock resolved probably secondary to staphylococcal pneumonia we'll repeat blood cultures today and tomorrow -Acute renal failure possibly acute tubular necrosis patient creatinine improved with IV fluids -Lactic acidosis secondary to sepsis -Hyperlipidemia next and heparin hypertension -Elevated liver enzymes set Anzemet is probably secondary to shock liver. -Troponin leak secondary to myocardial injury from sepsis.
--- NOTE | 2019-08-07 15:25 | PN ---
PROGRESS NOTE DATE OF SERVICE: 08/07/2019 REASON FOR FOLLOWUP: Sepsis and pneumonia. INTERVAL HISTORY: The patient overall feels better and has improved. T-max of 100.6 over the last 24 hours compared to 103 on admission. The patient is hemodynamically stable, not on any pressor support. FiO2 is currently at 50%. No significant purulent secretion through the ET and no diarrhea has been reported by the nursing staff. PHYSICAL EXAMINATION: Blood pressure 127/72 with a pulse of 115, temperature 99.8. He is 97% on 50% FiO2. General description is a middle-aged male lying in bed in no distress. RESPIRATORY SYSTEM: Unlabored breathing with decreased breath sounds at the base. No wheeze. HEART: S1, S2. Regular rate and rhythm. ABDOMEN: Soft. No tenderness. LABS: Hemoglobin is 12.2, white count 17.1, BUN of 83, creatinine 1.55. Liver enzymes remain elevated. Blood cultures now with presumptive Staph aureus. Sputum showing both Gram- negative and Staph aureus. DIAGNOSTIC IMPRESSION AND PLAN: Patient with sepsis. Source is likely Staph aureus pneumonia with a question of possible community-acquired MRSA. The patient will continue on cefepime and vancomycin while waiting for the culture to finalize and monitor his clinical course closely. MMODL / IJN: [id number] /
[2019-08-07] MEDS ORDERED: VANCOMYCIN TROUGH DUE 1 EACH MISC MISCELLANE ONE (17:00)
[2019-08-07 18:02] LABS: Glucose,Whole Blood 167 mg/dL (75-99)
[2019-08-07 23:48] LABS: Glucose,Whole Blood 221 mg/dL (75-99)
[2019-08-08] MEDS: INSULIN ASPART (NovoLOG) 100 UNIT/ML VIAL SQ SCH ×4 (00:50→17:55)
[2019-08-08] MEDS: MIDAZOLAM HCL 50 MG in SODIUM CHLORIDE 0.9% 40 ML IV SCH ×2 (03:43→17:39)
[2019-08-08 04:51] LABS: Anisocytosis Slight; HCT 36.3 % (39.0-53.0); MCH 27.4 pg (25.0-35.0); MCHC 33.2 g/dL (31.0-37.0); MCV 82.5 fL (80.0-100.0); Mean Platelet Volume 8.9; Platelet Count 154 k/uL (150-450); RBC 4.39 m/uL (4.30-5.90); RDW 16.9 % (11.5-15.5)
[2019-08-08 04:56] LABS: African American GFR (CKD) >90 (>60 ml/min/1.73 sqM); Albumin 2.7 g/dL (3.5-5.0); Alkaline Phosphatase 144 U/L (38-126); Anion Gap 6 mmol/L; Blood Urea Nitrogen 70 mg/dL (9-20); Calcium 6.7 mg/dL (8.4-10.2); Carbon Dioxide 25 mmol/L (22-30); Chloride 114 mmol/L (98-107); Glucose 195 mg/dL (74-99); Non-African American GFR(CKD) >90 (>60 ml/min/1.73 sqM); Potassium 4.2 mmol/L (3.5-5.1); Sodium 145 mmol/L (137-145); Total Bilirubin 0.4 mg/dL (0.2-1.3); Total Protein 5.3 g/dL (6.3-8.2)
[2019-08-08] MEDS ORDERED: VANCOMYCIN TROUGH DUE 1 EACH MISC MISCELLANE ONE (05:00)
[2019-08-08 05:19] LABS: ABG Base Excess 0.4 mmol/L; ABG HCO3 24 mmol/L (21-25); ABG Oxygen Saturation 97.6 % (94-97); ABG PCO2 34 mmHg (35-45); ABG PH 7.46 (7.35-7.45); ABG PO2 103 mmHg (83-108); ABG TCO2 25 mmol/L (19-24); Allen Test Performed? Yes
[2019-08-08 05:30] LABS: ALT 1647 U/L (4-49); AST 745 U/L (17-59)
[2019-08-08 05:51] LABS: Band Neutrophils % 12 %; Metamyelocytes # (M) 0.46 k/uL (0); Metamyelocytes % 2 %; Monocytes # (M) 0.46 k/uL (0-1.0); Myelocytes # (M) 0.23 k/uL (0); Myelocytes % 1 %; Neutrophils % (M) 80 %; Nucleated Red Blood Cells 1 /100 WBC (0-0); Total Cells Counted 200
[2019-08-08 05:52] LABS: Lymphocytes # (M) 0.91 k/uL (1.0-4.8); Toxic Granulation Present; WBC 22.8 k/uL (3.8-10.6)
[2019-08-08] MEDS: VANCOMYCIN 1,750 MG in SODIUM CHLORIDE 0.9% 500 ML 500 ML IVPB SCH ×2 (06:01→17:51)
[2019-08-08] MEDS: AMIODARONE 300 MG in DEXTROSE 5% IN WATER 250 ML IV SCH ×4 (06:02→21:35)
[2019-08-08] MEDS: NOREPINEPHRINE 4 MG in SODIUM CHLORIDE 0.9% 250 ML IV SCH ×2 (06:02→18:08)
--- NOTE | 2019-08-08 07:57 | XR ---
EXAMINATION TYPE: XR chest 1V portable DATE OF EXAM: 08/08/2019 COMPARISON: 08/07/2019 HISTORY: Tube placement. Follow-up exam. TECHNIQUE: Single frontal view of the chest is obtained. FINDINGS: Right internal jugular approach central venous catheter, endotracheal tube, and enteric tu be appears satisfactory in position overall. The endotracheal tube appears at the level of the clavic les approximately 5.5 cm from the mario. Attention on follow-up exams to ensure this does not retrac t any further. Marked worsening of the right basilar opacity and slight worsening of the left basilar opacity with t race bilateral pleural effusions. Perihilar interstitial prominence remains. Reverse left arthroplast y noted. IMPRESSION: Marked progression in the right basilar opacity and progression of the left basilar opac ity is stable perihilar interstitial prominence. Consideration is for mucous plugging and downstream right basilar atelectasis given the short-term interval change versus progressive pneumonia with new trace pleural effusions.
[2019-08-08] MEDS: CHLORHEXIDINE GLUCONATE 15 ML CUP MUCOUS MEM SCH ×2 (08:47→21:03)
[2019-08-08] MEDS: PIPERACILLIN-TAZOBACTAM 3.375 GM in SODIUM CHLORIDE 0.9% 100 ML IVPB SCH ×2 (08:48→15:10)
[2019-08-08] MEDS: ASPIRIN 81 MG PO SCH (08:48)
[2019-08-08] MEDS: methylPREDNISolone SOD SUCCI 40 MG/ML 1 ML VIAL IV SCH ×2 (08:48→21:03)
[2019-08-08] MEDS: PANTOPRAZOLE 40 MG/10 ML VIAL IV SCH (08:48)
[2019-08-08] MEDS ORDERED: ENOXAPARIN 40 MG/0.4 ML SYRINGE SQ SCH (09:00)
[2019-08-08] MEDS ORDERED: FUROSEMIDE 10 MG/ML 2 ML VIAL IV SCH (09:00)
[2019-08-08] MEDS ORDERED: METOPROLOL TARTRATE 50 MG TAB PO SCH ×2 (09:00→16:00)
[2019-08-08] MEDS: VALPROIC ACID ORAL SOLN 250 MG/5 ML CUP OG-TUBE SCH ×2 (10:00→21:02)
[2019-08-08 10:07] LABS: Ferritin 8169.7 ng/mL (22.0-322.0)
--- NOTE | 2019-08-08 11:14 | P.PN ---
Subjective Progress Note Date: 08/08/19 62-year-old male patient who was brought into the emergency department today unresponsive and profoundly hypoxic. The patient was in acute hypoxic respiratory failure. Initial pulse ox was in the mid 30s. Apparently he was not also communicating or responding. He was apparently awake and alert on the morning prior to him coming to the hospital according to the landlord. The landlord noted that the patient was appearing ill and called EMS. Upon EMS arrival, the patient was found to be obtunded. He had a fever of 10 1F. He was found to be hypoxic, brought into the emergency room he was found to be tachycardic and hypoxic with was placed on supplemental oxygen without any benefit and ultimately the patient was intubated and placed on a mechanical ventilator. COVID 19 is suspected. The patient was placed on the opposite isolation. The patient had the appropriate nasal swabs. Chest x-ray showed bilateral airspace disease consistent with pneumonia in addition to interstitial pneumonitis. ET tube was around 3.7 cm above the mario. NG tube was extending into the left abdomen. There was a right upper lobe consolidation noted and a tiny right-sided pleural effusion. No evidence of any pneumothorax. There was bilateral infiltrates and coarse interstitium and a prosthetic left shoulder. The patient has a white cell count of 4.9. He had some lymphopenia. His platelet counts is no within normal limits. The blood gases was done on 100% nonrebreather showed a pH of 7.17 with a pCO2 of 66 and pO2 of 45. The patient also had an acute kidney injury with a creatinine of 1.65. Epigastric level was at 3.1. The ALT is at 1106 with an ammonia level of 146 and a bilirubin of 0.5 and an albumin of 4.1. The serum alcohol was negative and the patient has negative salicylates and acetaminophen. Influenza screen has been negative. Covid 19 analysis still pending for now. This patient lives with a sister in a house and he collects Social Security disability. He has had issues with mental health and the patient has been dealing with bipolar disorder and chronic insomnia of many years duration. He has also chronic anxiety disorder. No history of any previous suicidal ideation or intent. No delusions or hallucinations based on recent psychiatric evaluation that was in the hospital. On today's evaluation of 62,020 the patient is being seen in follow-up in the in tensive care unit. Noted the patient is intubated on a mechanical ventilator and is suspected to have Covid 19. He is afebrile on today's evaluation. He remains on a mechanical ventilator. He is sedated with propofol running at 20 mg per KG per minute. He was given a total of 5 L of IV fluid as the patient was hypotensive and currently the fluid is running at 75 mL an hour of normal saline. He remains on norepinephrine infusion at 0.08 mg per KG per minute. He remains on a mechanical ventilator. His assist-control mode at the rate of 28 with a tidal volume of 450 and FiO2 of 60% with a PEEP of 15. His blood gases showed a pH of 7.12 with a pCO2 of 58 and pO2 of 187. This was done and FiO2 of 100%. Otherwise, the patient has blood abnormalities it is consistent with Covid 19 infection. He has a rhabdomyolysis with a CPK level of 6114. He has also transaminitis with a AST of 3354, ALT of 1962, and his LDH level is at 8367. His creatinine is at 1.2, which is up from a baseline of 1.65 with fluid resuscitation. His current minute ventilation is 13 L. I made recommendations to keep the same vent setting. Based on the blood on of some non-anion gap metabolic acidosis, and with recommendations to start the patient on bicarb infusion and addition to 2 A of IV bicarb pushes. He was having temperatures throughout the night with temperature maximum 100.8. Current temperature is 99.6. He'll be started on enteral feeding for nutritional support. Covid 19 evaluation is still pending for now. On today's evaluation of 08/07/2019 and seeing this patient for a follow-up. The patient has sedated with propofol. He was given a sedation holiday yesterday and his neurologic exam was suboptimal as the patient did not show adequate neurologic recovery. Based on that, a CAT scan of the brain was done and the CAT scan of the brain was negative for any acute abnormalities. Noted the patient was profoundly hypoxic and at time of admission to the hospital and there is a suspicion for hypoxic encephalopathy. Contrary to my expectations, the patient checked negative for Covid 19 infection. The blood culture came back positive for staph aureus. Currently is on a combination of cefepime and vancomycin. The patient was resuscitated with more than 5 L of normal saline and the patient is also requiring some pressors for hemodynamic support and levo fed was started and 8 on was placed on hold as of 5:00 this morning. Urine output in the order of 40 mL an hour. In terms of sedation, the patient is on propofol at 20 g per KG per minute. Note that the patient had issues with a significant leak around his orotracheal tube. This was replaced yesterday by ACCOUNTING OFFICE MANAGER without any major difficulties. This morning, he remains on a VC plus mode with a rate of 28 and a tidal volume of 450 and a nighttime of 1 second with a PEEP of 15 with an FiO2 of 50%. Blood gases from today showed a pH of 7.36 with a pCO2 of 37 and pO2 of 92. Chest x-ray showing diffuse bilateral pulmonary infiltrates. His cardiac rhythm is still in atrial fibrillation. He is on amiodarone maintenance at 0.5 mg per minute. The patient has a creatinine of 1.5. There is still evidence of transaminitis with elevation of the AST and ALP and both are improving. LDH level is elevated at 5738. CPKs improving at 2431. C-reactive protein is elevated at 622. Note that the LDH is on the decline, CPKs on the decline on today's evaluation. LFTs are also improving. On 08/08/2019 on seeing this patient for a follow-up. The patient has been off sedation since yesterday. I am not seeing an adequate neurologic recovery in this patient. There may be a component of hepatic encephalopathy in the patient's went into shock liver. Nevertheless, his ammonia is dropping. He is on lactulose. He is producing adequate amount of bowel activity. He is undergoing training the painful stimulation. Pupils are about 3 mm in size and there is C-reactive to light. There is a very weak cough and a gag. Absolutely no response to deep painful stimulation. No seizure activity has been noted. Neurology will be consulted on the case. EEG will be ordered. Meanwhile, the patient is clearly becoming a case of possible aspiration staphylococcal pneumonia. His blood culture came back positive for staph aureus. His sputum positive for staph. He also has gram-negative bacillus in his sputum which log turner to be E. coli. For now, the cultures and the blood to be MSSA. The patient was on examination of cefepime and vancomycin. I dropped the cefepime and I utilized Zosyn to give him better anaerobic coverage as the patient clearly has a history of aspiration. Meanwhile, the Covid test came back negative. The patient remains on a mechanical ventilator. On today's chest x-ray there is worsening over the bilateral pulmonary infiltrates worse on the right. ET tube remains in a good location. The patient remains on an assist-control mode at the rate of 18 with a tidal volume of 450 and FiO2 of 50% with a PEEP of 10. Blood gas showed a pH of 7.46 with a pCO2 of 34 and pO2 of 103. CVP is ranging between 12 and 14. He remains in atrial fibrillation. He is on amiodarone drip maintenance at 0.5 mg per minute. He is also on normal saline at the rate of 75 mL an hour. His age fibrillation is under better control and he is on no pressors. He can tolerate beta blockers. He is having low-grade fever still. The white cell count is up to 22. The shock liver is improving including the AST and ALP level. The LDH level was elevated. The CPKs also improving is down to 2431. His ammonia level is down to 85. His coagulation profile is within normal limits. Objective - Vital Signs Vital signs: Vital Signs Temp 100.8 F H 08/08/19 08:00 Pulse 109 H 08/08/19 11:00 Resp 32 H 08/08/19 11:00 BP 122/90 08/08/19 11:00 Pulse Ox 97 08/08/19 11:00 Intake & Output 08/07/19 08/08/19 08/08/19 18:59 06:59 18:59 Intake Total 2878.153 3013.5 504 Output Total 830 1330 1635 Balance 2048.153 1683.5 -1131 Weight 104.2 kg Intake: IV 4 2142 214 Amiodarone 300 mg In 255 325 25 Dextrose 5% in Water 250 ml @ 0.5 MG/MIN 25 mls/hr IV .Q10H [facility] Rx#: [id number] Calcium Gluconate 1 gm In 100 Sodium Chloride 0.9% 100 ml @ 100 mls/hr IVPB ONCE ONE Rx#:[id number] Cefepime 2 gm In Sodium 100 100 Chloride 0.9% 100 ml @ 200 mls/hr IVPB Q12HR [facility] Rx#:[id number] Dextrose 5% in Water 1, 150 000 ml @ 75 mls/hr IV . [id number] [facility] with Sodium Bicarb (1 Meq/ml) 150 ml Rx#:[id number] Piperacillin-Tazobactam 3 50 .375 gm In Sodium Chloride 0.9% 100 ml @ 25 mls/hr IVPB Q8HR [facility] Rx# :[id number] Pressure bag 72 75 24 Sodium Chloride 0.9% 1, 700 975 115 000 ml @ 10 mls/hr IV . Q24H [facility] Rx#:[id number] Vancomycin 1,750 mg In 667 667 Sodium Chloride 0.9% 500 ml 500 ml @ 167 mls/hr IVPB Q12H [facility] Rx#: [id number] Intake, IV Titration 304.153 237.5 Amount Amiodarone 300 mg In 250 Dextrose 5% in Water 250 ml @ 0.5 MG/MIN 25 mls/hr IV .Q10H [facility] Rx#: [id number] Amiodarone 300 mg In 237.5 Dextrose 5% in Water 250 ml @ 0.5 MG/MIN 25 mls/hr IV .Q10H [facility] Rx#: [id number] Propofol 1,000 mg In 54.153 Empty Bag 1 bag @ Titrate IV .Q0M [facility] Rx#: [id number] Oral 50 Tube Feeding 390 544 260 Other 90 90 30 Output: Urine 830 1330 1635 Other: Voiding Method Indwelling Catheter Indwelling Catheter Indwelling Catheter ABP, PAP, CO, CI - Last Documented Arterial Blood Pressure 154/79 - Exam Gen. appearance, comfortable sedated nonacute distress intubated on a mechanical ventilator. Orogastric and orotracheal tube are both in place Head exam was generally normal. There was no scleral icterus or corneal arcus. Mucous membranes were moist. Neck was supple and without jugular venous distension, thyromegaly, or carotid bruits. Carotids were easily palpable bilaterally. There was no adenopathy. Lungs were clear to auscultation and percussion, and with normal diaphragmatic excursion. No wheezes or rales were noted. Cardiac exam revealed the PMI to be normally situated and sized. The rhythm was regular and no extrasystoles were noted during several minutes of auscultation. The first and second heart sounds were normal and physiologic splitting of the second heart sound was noted. There were no murmurs, rubs, clicks, or gallops. Abdominal exam revealed normal bowel sounds. The abdomen was soft, non-tender, and without masses, organomegaly, or appreciable enlargement of the abdominal aorta. Examination of the extremities revealed easily palpable radial, femoral and pedal pulses. There was no cyanosis, clubbing or edema. Examination of the skin revealed no evidence of significant rashes, suspicious appearing nevi or other concerning lesions. Neurologically the patient sedated, comfortable no acute distress. - Labs CBC & Chem 7: 08/08/19 04:40 08/08/19 04:40 Labs: Abnormal Lab Results - Last 24 Hours (Table) 08/07/19 08/07/19 08/07/19 Range/Units 04:35 04:35 11:26 WBC (3.8-10.6) k/uL Hgb (13.0-17.5) gm/dL Hct (39.0-53.0) % RDW (11.5-15.5) % Neutrophils # (Manual) (1.3-7.7) k/uL Lymphocytes # (Manual) (1.0-4.8) k/uL Metamyelocytes # (Man) (0) k/uL Myelocytes # (Manual) (0) k/uL Nucleated RBCs (0-0) /100 WBC ABG pH (7.35-7.45) ABG pCO2 (35-45) mmHg ABG Total CO2 (19-24) mmol/L ABG O2 Saturation (94-97) % Chloride (98-107) mmol/L BUN (9-20) mg/dL Glucose (74-99) mg/dL POC Glucose (mg/dL) 202 H (75-99) mg/dL Calcium (8.4-10.2) mg/dL Ferritin 8169.7 H (22.0-322.0) ng/mL AST (17-59) U/L ALT (4-49) U/L Alkaline Phosphatase (38-126) U/L Ammonia (<30) umol/L Total Protein (6.3-8.2) g/dL Albumin (3.5-5.0) g/dL Procalcitonin 21.61 H (0.02-0.09) ng/mL 08/07/19 08/07/19 08/08/19 Range/Units 18:01 23:47 04:40 WBC 22.8 H (3.8-10.6) k/uL Hgb 12.0 L (13.0-17.5) gm/dL Hct 36.3 L (39.0-53.0) % RDW 16.9 H (11.5-15.5) % Neutrophils # (Manual) 20.90 H (1.3-7.7) k/uL Lymphocytes # (Manual) 0.91 L (1.0-4.8) k/uL Metamyelocytes # (Man) 0.46 H (0) k/uL Myelocytes # (Manual) 0.23 H (0) k/uL Nucleated RBCs 1 H (0-0) /100 WBC ABG pH (7.35-7.45) ABG pCO2 (35-45) mmHg ABG Total CO2 (19-24) mmol/L ABG O2 Saturation (94-97) % Chloride (98-107) mmol/L BUN (9-20) mg/dL Glucose (74-99) mg/dL POC Glucose (mg/dL) 167 H 221 H (75-99) mg/dL Calcium (8.4-10.2) mg/dL Ferritin (22.0-322.0) ng/mL AST (17-59) U/L ALT (4-49) U/L Alkaline Phosphatase (38-126) U/L Ammonia (<30) umol/L Total Protein (6.3-8.2) g/dL Albumin (3.5-5.0) g/dL Procalcitonin (0.02-0.09) ng/mL 08/08/19 08/08/19 08/08/19 Range/Units 04:40 04:40 05:12 WBC (3.8-10.6) k/uL Hgb (13.0-17.5) gm/dL Hct (39.0-53.0) % RDW (11.5-15.5) % Neutrophils # (Manual) (1.3-7.7) k/uL Lymphocytes # (Manual) (1.0-4.8) k/uL Metamyelocytes # (Man) (0) k/uL Myelocytes # (Manual) (0) k/uL Nucleated RBCs (0-0) /100 WBC ABG pH 7.46 H (7.35-7.45) ABG pCO2 34 L (35-45) mmHg ABG Total CO2 25 H (19-24) mmol/L ABG O2 Saturation 97.6 H (94-97) % Chloride 114 H (98-107) mmol/L BUN 70 H (9-20) mg/dL Glucose 195 H (74-99) mg/dL POC Glucose (mg/dL) (75-99) mg/dL Calcium 6.7 L (8.4-10.2) mg/dL Ferritin (22.0-322.0) ng/mL AST 745 H (17-59) U/L ALT 1647 H (4-49) U/L Alkaline Phosphatase 144 H (38-126) U/L Ammonia 85 H (<30) umol/L Total Protein 5.3 L (6.3-8.2) g/dL Albumin 2.7 L (3.5-5.0) g/dL Procalcitonin (0.02-0.09) ng/mL Microbiology - Last 24 Hours (Table) 08/05/19 21:56 Gram Stain - Preliminary Sputum Sputum Culture - Preliminary Staphylococcus aureus Escherichia coli 08/07/19 05:10 Blood Culture Gram Stain - Preliminary Blood Blood Culture - Preliminary Staphylococcus aureus 08/07/19 05:10 Blood Culture - Final Blood 08/05/19 16:53 Blood Culture Gram Stain - Preliminary Blood Blood Culture - Preliminary Presumptive Staph aureus Assessment and Plan Plan: 1 acute hypoxic/hypercapnic respiratory failure with development of diffuse bilateral pulmonary for placing consolidation right more than left. It's more obvious currently the patient has a bacterial infectious cause underlying his respiratory failure which probably is related to an aspiration pneumonia. Sputum is positive for E. coli and staph aureus which may log turner to be an MSSA. I have him on a combination of Zosyn and vancomycin for now. Covid 19 testing came back negative. The patient remains on a mechanical ventilator. The patient's hemodynamics is improved and the patient is currently on no pressors. His CVP is ranging between 12 and 14. The patient is having low- grade fever. He is producing adequate amount of urine output for now. He is showing signs of some fluid overload. 2 acute ventilator-dependent respiratory failure secondary to above, see above discussion 3 acute febrile illness secondary to above, still having low-grade fever 4 acute kidney injury, recovered 5 acute lactic acidosis, improved 6 of unresponsiveness, with obvious marked. diminished level of consciousness and the patient came into the emergency unresponsive secondary to profound hypoxemia. The patient's blood gas showed a component of an acute hypoxemic and hypercapnic respiratory failure. The CAT scan of the brain that was done showed no acute abnormalities. This could be related to hypoxic encephalopathy as the patient was quite hypoxic at time of his hospital admission. Also this is a metabolic encephalopathy, hepatic encephalopathy as the patient's ammonia level is high in the setting of shock liver. 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 14 acute leukocytosis 15 staph aureus septicemia, awaiting final cultures and sensitivities 16 suspicion for aspiration. Plan Continue same vent setting for today Cut down the IV fluids to KVO Give the patient 20 mg IV Lasix and this may be repeated Utilize Zosyn and vancomycin as the patient has had possibly some aspiration and Zosyn gives us a better anaerobic coverage. He has also good coverage regarding MSSA and E. coli. Discontinue the amiodarone Utilize metoprolol at a dose of 50 mg twice a day for rate control Change Lovenox to 40 subcu every 24 hours and this will be on a prophylactic dose Monitor cardiac enzymes include a CPK Monitor liver function tests Monitor ammonia level Consult neurology EEG in progress Enteral feeding for nutritional support We'll continue to follow. Condition is critical and this evaluation was done a than 30 minutes. Time with Patient: Greater than 30
[2019-08-08 12:02] LABS: Glucose,Whole Blood 214 mg/dL (75-99)
[2019-08-08] MEDS: METOPROLOL TARTRATE 50 MG TAB PO SCH ×2 (12:51→21:03)
--- NOTE | 2019-08-08 13:12 | P.PN ---
Subjective Patient is admitted for acute hypoxic and hypercapnic respiratory failure which was believed to be secondary to Covid 19 pneumonia patient is presently on FiO2 of 60%. Patient does have related troponin by highly elevated be high d-dimer is of which patient is on anti-correlation dose of the Lovenox. Patient scored 19 is pending patient has chest x-ray findings consistent with the pulmonary edema or atypical pneumonia or Covid 19 pneumonia along with the significant transaminitis elevated highly elevated LDH highly elevated. Ferritin and si gnificant lymphopenia ration continues to have fever. Patient also has acute renal failure secondary to possibly acute tubular necrosis patient is on sodium bicarbonate and D5 because of hyperkalemia. 08/07/2019 Patient the white blood cell count went up to 17,000. His blood cultures are positive for staph aureus we'll repeat the blood cultures tomorrow. Patient liver enzymes are elevated because of shock liver ultrasound did not show significant abnormality. Patient had an elevated ammonia yesterday which is actually better now after lactulose, patient is off pressors. Patient remains on amiodarone. Computed tomography scan of the brain did not show any significant abnormality patient Covid 19 is negative patient remains on cefepime and vancomycin. Primary source is probably lung. Patient has fairly good urine output at 400 mL per hour on volume control ventilation set up respiratory rate of 28 total volume of 450 PEEP of 15 episode of 50% patient's hypercapnic respiratory failure improved and hypoxic respiratory failure improved patient has pH of 7.36 pCO2 of 37 08/07/2028 patient doesn't have any significant clinical improvement remains bacteremic repeat blood cultures are being obtained for today and tomorrow as well. Patient has staph aureus in the blood patient probably will need the transesophageal echocardiogram. Patient is off sedation but is not arousable yet because of which neurology is evaluating the patient and patient is getting EEG patient remains on Vanco mycin cefepime was switched to Zosyn because of concern for aspiration patient aspirin cultures are positive for staph aureus and E. coli along with the species infectious disease is following the patient as well. Review Of systems: Unable to obtain due to his clinical condition. All inpatient medications were reviewed and appropriate changes in these medications as dictated in the interval history and assessment and plan. Objective - Vital Signs Vital signs: Vital Signs Temp 100.6 F H 08/08/19 12:00 Pulse 124 H 08/08/19 12:00 Resp 23 08/08/19 12:00 BP 138/87 08/08/19 12:00 Pulse Ox 96 08/08/19 12:00 Intake & Output 08/07/19 08/08/19 08/08/19 18:59 06:59 18:59 Intake Total 2878.153 3013.5 679 Output Total 830 1330 1825 Balance 2048.153 1683.5 -1146 Weight 104.2 kg Intake: IV 2044 2142 255 Amiodarone 300 mg In 255 325 25 Dextrose 5% in Water 250 ml @ 0.5 MG/MIN 25 mls/hr IV .Q10H [facility] Rx#: [id number] Calcium Gluconate 1 gm In 100 Sodium Chloride 0.9% 100 ml @ 100 mls/hr IVPB ONCE ONE Rx#:[id number] Cefepime 2 gm In Sodium 100 100 Chloride 0.9% 100 ml @ 200 mls/hr IVPB Q12HR [facility] Rx#:[id number] Dextrose 5% in Water 1, 150 000 ml @ 75 mls/hr IV . [id number] [facility] with Sodium Bicarb (1 Meq/ml) 150 ml Rx#:[id number] Piperacillin-Tazobactam 3 75 .375 gm In Sodium Chloride 0.9% 100 ml @ 25 mls/hr IVPB Q8HR [facility] Rx# :[id number] Pressure bag 72 75 30 Sodium Chloride 0.9% 1, 700 975 125 000 ml @ 10 mls/hr IV . Q24H [facility] Rx#:[id number] Vancomycin 1,750 mg In 667 667 Sodium Chloride 0.9% 500 ml 500 ml @ 167 mls/hr IVPB Q12H [facility] Rx#: [id number] Intake, IV Titration 304.153 237.5 Amount Amiodarone 300 mg In 250 Dextrose 5% in Water 250 ml @ 0.5 MG/MIN 25 mls/hr IV .Q10H [facility] Rx#: [id number] Amiodarone 300 mg In 237.5 Dextrose 5% in Water 250 ml @ 0.5 MG/MIN 25 mls/hr IV .Q10H [facility] Rx#: [id number] Propofol 1,000 mg In 54.153 Empty Bag 1 bag @ Titrate IV .Q0M [facility] Rx#: [id number] Oral 50 Tube Feeding 390 544 364 Other 90 90 60 Output: Urine 830 1330 1825 Other: Voiding Method Indwelling Catheter Indwelling Catheter Indwelling Catheter ABP, PAP, CO, CI - Last Documented Arterial Blood Pressure 156/78 - Exam PHYSICAL EXAMINATION: GENERAL: Patient is intubated sedated and vented to settings as mentioned above patient is a FiO2 of 60% PEEP of 15 pedal volume of 450 set up respiratory rate of 28 assist-control ventilation. ABGs hypoxic hypercapnic respiratory failure with pH of 7.17 pCO2 66 by mouth to 45 bicarbonate 19 HEENT: Pupils are round and equally reacting to light. EOMI. No scleral icterus. No conjunctival pallor. Normocephalic, atraumatic. No pharyngeal erythema. No thyromegaly. CARDIOVASCULAR: S1 and S2 present. No murmurs, rubs, or gallops. PULMONARY: Chest is clear to auscultation, no wheezing or crackles. ABDOMEN: Soft, nontender, nondistended, normoactive bowel sounds. No palpable organomegaly. MUSCULOSKELETAL: No joint swelling or deformity. EXTREMITIES: No cyanosis, clubbing, or pedal edema. NEUROLOGICAL: Gross neurological examination did not reveal any focal deficits. SKIN: No rashes. - Labs CBC & Chem 7: 08/08/19 04:40 08/08/19 04:40 Labs: Abnormal Lab Results - Last 24 Hours (Table) 08/07/19 08/07/19 08/07/19 Range/Units 04:35 04:35 18:01 WBC (3.8-10.6) k/uL Hgb (13.0-17.5) gm/dL Hct (39.0-53.0) % RDW (11.5-15.5) % Neutrophils # (Manual) (1.3-7.7) k/uL Lymphocytes # (Manual) (1.0-4.8) k/uL Metamyelocytes # (Man) (0) k/uL Myelocytes # (Manual) (0) k/uL Nucleated RBCs (0-0) /100 WBC ABG pH (7.35-7.45) ABG pCO2 (35-45) mmHg ABG Total CO2 (19-24) mmol/L ABG O2 Saturation (94-97) % Chloride (98-107) mmol/L BUN (9-20) mg/dL Glucose (74-99) mg/dL POC Glucose (mg/dL) 167 H (75-99) mg/dL Calcium (8.4-10.2) mg/dL Ferritin 8169.7 H (22.0-322.0) ng/mL AST (17-59) U/L ALT (4-49) U/L Alkaline Phosphatase (38-126) U/L Ammonia (<30) umol/L Total Protein (6.3-8.2) g/dL Albumin (3.5-5.0) g/dL Procalcitonin 21.61 H (0.02-0.09) ng/mL 08/07/19 08/08/19 08/08/19 Range/Units 23:47 04:40 04:40 WBC 22.8 H (3.8-10.6) k/uL Hgb 12.0 L (13.0-17.5) gm/dL Hct 36.3 L (39.0-53.0) % RDW 16.9 H (11.5-15.5) % Neutrophils # (Manual) 20.90 H (1.3-7.7) k/uL Lymphocytes # (Manual) 0.91 L (1.0-4.8) k/uL Metamyelocytes # (Man) 0.46 H (0) k/uL Myelocytes # (Manual) 0.23 H (0) k/uL Nucleated RBCs 1 H (0-0) /100 WBC ABG pH (7.35-7.45) ABG pCO2 (35-45) mmHg ABG Total CO2 (19-24) mmol/L ABG O2 Saturation (94-97) % Chloride 114 H (98-107) mmol/L BUN 70 H (9-20) mg/dL Glucose 195 H (74-99) mg/dL POC Glucose (mg/dL) 221 H (75-99) mg/dL Calcium 6.7 L (8.4-10.2) mg/dL Ferritin (22.0-322.0) ng/mL AST 745 H (17-59) U/L ALT 1647 H (4-49) U/L Alkaline Phosphatase 144 H (38-126) U/L Ammonia (<30) umol/L Total Protein 5.3 L (6.3-8.2) g/dL Albumin 2.7 L (3.5-5.0) g/dL Procalcitonin (0.02-0.09) ng/mL 08/08/19 08/08/19 08/08/19 Range/Units 04:40 05:12 12:00 WBC (3.8-10.6) k/uL Hgb (13.0-17.5) gm/dL Hct (39.0-53.0) % RDW (11.5-15.5) % Neutrophils # (Manual) (1.3-7.7) k/uL Lymphocytes # (Manual) (1.0-4.8) k/uL Metamyelocytes # (Man) (0) k/uL Myelocytes # (Manual) (0) k/uL Nucleated RBCs (0-0) /100 WBC ABG pH 7.46 H (7.35-7.45) ABG pCO2 34 L (35-45) mmHg ABG Total CO2 25 H (19-24) mmol/L ABG O2 Saturation 97.6 H (94-97) % Chloride (98-107) mmol/L BUN (9-20) mg/dL Glucose (74-99) mg/dL POC Glucose (mg/dL) 214 H (75-99) mg/dL Calcium (8.4-10.2) mg/dL Ferritin (22.0-322.0) ng/mL AST (17-59) U/L ALT (4-49) U/L Alkaline Phosphatase (38-126) U/L Ammonia 85 H (<30) umol/L Total Protein (6.3-8.2) g/dL Albumin (3.5-5.0) g/dL Procalcitonin (0.02-0.09) ng/mL Microbiology - Last 24 Hours (Table) 08/05/19 21:56 Gram Stain - Preliminary Sputum Sputum Culture - Preliminary Staphylococcus aureus Escherichia coli Yeast species 08/07/19 05:10 Blood Culture Gram Stain - Preliminary Blood Blood Culture - Preliminary Staphylococcus aureus 08/07/19 05:10 Blood Culture - Final Blood Assessment and Plan Plan: Acute hypoxic and hypercapnic respiratory failure probably secondary to sepsis from a staphylococcal bacteremia possible COPD exacerbation. Continue ventilator support with the above-mentioned vent settings continue with inhalational treatments patient is on systemic steroids mostly for covid 19. -Sepsis shock shock resolved probably secondary to staphylococcal pneumonia, patient has persistent bacteremia with the MRSA need to [facility] to evaluate for endocarditis. Patient can use to have fever -Possible anoxic brain injury and severe encephalopathy from sepsis. Patient has worsening leukocytosis barely arousable in spite of discontinuation of sedation for more than 24 hours. -Acute renal failure possibly acute tubular necrosis patient creatinine improved with IV fluids -Lactic acidosis secondary to sepsis -Hyperlipidemia next and heparin hypertension -Elevated liver enzymes set Anzemet is probably secondary to shock liver. -Troponin leak secondary to myocardial injury from sepsis. -Severe pulmonary hypertension
--- NOTE | 2019-08-08 14:26 | P.CNNES ---
History of Present Illness Consult date: 08/08/19 Requesting physician: Kamilla So Reason for Consult: Patient off propofol on ventilator 24 hours, unresponsive History of Present Illness: Patient is a 64-year-old male admitted to the hospital on 08/05/2023 unrespo nsiveness. Patient was seen by the landlord, awake and alert on the morning of admission. The landlord noticed that patient was ill appearing and and called EMS. Upon EMS arrival, patient was obtunded. Patient had temperature 101. He was noted to be hypoxic with initial saturation in the 30s. Blood pressure was normal but he was tachycardic with heart rate in 120. Patient has been diagnosed with sepsis with staph aureus pneumonia. Question of possible community-acquired MRSA. Patient is COVID-19 negative. Patient has been off propofol since yesterday for last 24 hours, but is not responding, which prompted this neurology consultation. No seizure activity has been noticed. Patient's workup shows 2-D echo with sinus rhythm. Left-ventricular size is normal. Mild concentric LVH. EF is 55-60%. Left atrial size is normal. CT head showed cerebral atrophy with no acute process. Patient's most recent chest x-ray showed marked progression in the right basilar opacity and progression of the left basilar opacity is stable. He had interstitial prominence. Consideration is for mucus plugging and downstream right basilar atelectasis given the short time interval change versus progressive pneumonia with new trace pleural effusion. Patient's blood test shows WBC 22.8, hemoglobin 12.0, platelets 154, normal electrolytes, BUN 70, creatinine 0.90 AST is significantly elevated 745, ALT 1647. Depakote level 42.8. Ammonia 85. Patient's sputum as well as blood cultures are positive for staph aureus. Review of Systems ROS unobtainable: due to endotracheal tube, due to mental status Past Medical History Past Medical History: COPD, Hyperlipidemia, Hypertension, Osteoarthritis (OA), Pneumonia Additional Past Medical History / Comment(s): History of bipolar disorder, an xiety disorder, history of infection of the left shoulder and the patient has a total left shoulder replacement History of Any Multi-Drug Resistant Organisms: None Reported Past Surgical History: Appendectomy, Joint Replacement, Orthopedic Surgery, T onsillectomy Additional Past Surgical History / Comment(s): finger surgery, LEFT SHOULDER REPLACEMENT , IMPLANT REMOVED FROM LEFT SHOLDER, LEFT SHOULDER REPLACEMENT, TOTAL LEFT KNEE, REPAIR OF LEFT KNEE, Past Anesthesia/Blood Transfusion Reactions: Motion Sickness Smoking Status: Current some day smoker - Past Family History Sister(s) Family Medical History: Cancer Medications and Allergies Home Medications Medication Instructions Recorded Confirmed Type Metoprolol Tartrate [Lopressor] 25 mg PO BID 06/02/17 08/05/19 History Rosuvastatin Calcium [Crestor] 5 mg PO HS 06/02/17 08/05/19 History amLODIPine [Norvasc] 5 mg PO BID 06/02/17 08/05/19 History Fenofibrate Nanocrystallized 145 mg PO DAILY 10/30/17 08/05/19 History [Fenofibrate] Albuterol Sulfate [Ventolin HFA] 1 - 2 puff INHALATION RT-Q6H PRN 12/29/18 08/05/19 History Dextroamphetamine/Amphetamine 30 mg PO BID 12/29/18 08/05/19 History [Adderall] Vascepa 1gm 2 gm PO BID 12/29/18 08/05/19 History chlordiazePOXIDE HCl [Librium] 25 mg PO TID 14 Days cap 01/03/19 08/05/19 Rx diphenhydrAMINE [Benadryl] 50 mg PO HS PRN 28 Days cap 01/03/19 08/05/19 Rx Acetaminophen with Codeine 1 tab PO Q4-6H PRN 08/05/19 08/05/19 History [Tylenol with Codeine #4 Tablet] Aspirin EC [Ecotrin Low Dose] 81 mg PO DAILY 08/05/19 08/05/19 History Chlorthalidone 25 mg PO DAILY 08/05/19 08/05/19 History Cyclobenzaprine [Flexeril] 10 mg PO HS 08/05/19 08/05/19 History Divalproex ER [Depakote ER] 500 mg PO BID 08/05/19 08/05/19 History Allergies Allergy/AdvReac Type Severity Reaction Status Date / Time haloperidol [From Haldol] Allergy Anaphylaxis Verified 12/31/18 19:20 Physical Examination - Vital Signs Vital Signs: Vital Signs Temp Pulse Resp BP Pulse Ox 08/08/19 11:00 109 H 32 H 122/90 97 08/08/19 10:00 120 H 28 H 97 06/04/20 09:00 123 H 30 H 132/83 96 08/08/19 08:00 100.8 F H 126 H 28 H 96 08/08/19 07:00 122 H 28 H 95 08/08/19 06:00 116 H 18 121/86 98 08/08/19 05:00 123 H 20 121/86 08/08/19 04:00 100.0 F H 117 H 19 127/89 98 08/08/19 03:00 113 H 17 127/89 98 08/08/19 02:00 121 H 23 120/83 99 08/08/19 01:00 104 H 28 H 08/08/19 00:01 122 H 28 H 120/83 08/08/19 00:00 100.2 F H 123 H 28 H 120/74 99 08/07/19 23:00 116 H 28 H 120/74 98 08/07/19 22:00 106 H 28 H 97 08/07/19 21:00 128 H 28 H 97 08/07/19 20:00 100.0 F H 122 H 28 H 97 08/07/19 19:00 124 H 23 97 08/07/19 18:30 118 H 18 97 08/07/19 18:15 125 H 17 97 08/07/19 18:00 118 H 18 97 08/07/19 17:45 118 H 18 97 08/07/19 17:30 114 H 17 97 08/07/19 17:15 125 H 24 97 08/07/19 17:00 115 H 18 97 08/07/19 16:45 123 H 19 96 08/07/19 16:30 125 H 19 96 08/07/19 16:15 133 H 18 120/95 95 08/07/19 16:00 99.4 F 125 H 23 120/95 90 L 08/07/19 15:45 123 H 17 97 08/07/19 15:30 121 H 17 97 08/07/19 15:15 129 H 17 97 08/07/19 15:00 123 H 20 97 08/07/19 14:45 118 H 16 97 08/07/19 14:30 123 H 16 97 08/07/19 14:15 128 H 16 97 08/07/19 14:00 116 H 17 97 08/07/19 13:45 120 H 15 97 08/07/19 13:30 118 H 15 97 08/07/19 13:15 113 H 17 97 08/07/19 13:00 125 H 15 97 08/07/19 12:45 115 H 15 97 08/07/19 12:30 118 H 14 120/90 97 08/07/19 12:15 115 H 15 97 Intake and Output 08/07/19 08/08/19 08/08/19 22:59 06:59 14:59 Intake Total 1587 2172.5 504 Output Total 118 280 2979 Balance 727 1347.5 -1131 Intake: IV 1257 1451 214 Amiodarone 300 mg In 200 225 25 Dextrose 5% in Water 250 ml @ 0.5 MG/MIN 25 mls/hr IV .Q10H [facility] Rx#: [id number] Cefepime 2 gm In Sodium 100 Chloride 0.9% 100 ml @ 200 mls/hr IVPB Q12HR [facility] Rx#:[id number] Piperacillin-Tazobactam 3 50 .375 gm In Sodium Chloride 0.9% 100 ml @ 25 mls/hr IVPB Q8HR [facility] Rx# :[id number] Pressure bag 48 51 24 Sodium Chloride 0.9% 1, 575 675 115 000 ml @ 10 mls/hr IV . Q24H [facility] Rx#:[id number] Vancomycin 1,750 mg In 334 500 Sodium Chloride 0.9% 500 ml 500 ml @ 167 mls/hr IVPB Q12H [facility] Rx#: [id number] Intake, IV Titration 237.5 Amount Amiodarone 300 mg In 237.5 Dextrose 5% in Water 250 ml @ 0.5 MG/MIN 25 mls/hr IV .Q10H [facility] Rx#: [id number] Tube Feeding 270 424 260 Other 60 60 30 Output: Urine 650 765 1454 Other: Voiding Method Indwelling Catheter Indwelling Catheter Indwelling Catheter Weight 104.2 kg ABP, PAP, CO, CI - Last 8 Hours Arterial Blood Pressure 154/79 Arterial Blood Pressure 133/86 Arterial Blood Pressure 155/83 Arterial Blood Pressure 156/83 Arterial Blood Pressure 153/80 Arterial Blood Pressure 144/82 Arterial Blood Pressure 149/81 Patient is an elderly male, who is intubated on mechanical ventilation. Patient is not on any sedatives. Patient does not respond to calling his name, or with painful stimuli. His pupils are 4 mm, reacts to 3 mm bilaterally. Oculocephalics absent. Visual ferrara could not be tested. Corneals are mildly present. Face, tongue could not be tested because of being on mechanical ventilation. Reflexes are diminished. Tone is equal. Motor strength cannot be tested, sensations and cerebellar functions cannot be tested. Plantars are flat. No obvious seizures like activity noted. Results - Laboratory Findings CBC and BMP: 08/08/19 04:40 08/08/19 04:40 Abnormal Lab Findings: Abnormal Labs 08/05/19 08/05/19 08/05/19 11:00 11:00 11:00 WBC Hgb Hct MCHC 30.7 L RDW 16.5 H Neutrophils # (Manual) Lymphocytes # (Manual) 0.59 L Metamyelocytes # (Man) 0.78 H Myelocytes # (Manual) 0.10 H Nucleated RBCs PT 13.4 H INR 1.3 H D-Dimer ABG pH ABG pCO2 ABG pO2 ABG HCO3 ABG Total CO2 ABG O2 Saturation Potassium Chloride Carbon Dioxide BUN Creatinine Glucose POC Glucose (mg/dL) Osmolality Plasma Lactic Acid Héctor Calcium Magnesium Ferritin AST ALT Alkaline Phosphatase Ammonia Lactate Dehydrogenase Creatine Kinase Troponin I C-Reactive Protein Total Protein Albumin Procalcitonin 8.75 H Urine Protein Urine Ketones Urine WBC Urine Bacteria Hyaline Casts Urine Mucus 08/05/19 08/05/19 08/05/19 11:00 11:00 11:08 WBC Hgb Hct MCHC RDW Neutrophils # (Manual) Lymphocytes # (Manual) Metamyelocytes # (Man) Myelocytes # (Manual) Nucleated RBCs PT INR D-Dimer 4.26 H ABG pH 7.17 L* ABG pCO2 66 H ABG pO2 45 L* ABG HCO3 ABG Total CO2 26 H ABG O2 Saturation 63.0 L Potassium Chloride Carbon Dioxide BUN Creatinine Glucose POC Glucose (mg/dL) Osmolality Plasma Lactic Acid Héctor Calcium Magnesium Ferritin 2732.3 H AST ALT Alkaline Phosphatase Ammonia Lactate Dehydrogenase 7884 H Creatine Kinase Troponin I C-Reactive Protein Total Protein Albumin Procalcitonin Urine Protein Urine Ketones Urine WBC Urine Bacteria Hyaline Casts Urine Mucus 08/05/19 08/05/19 08/05/19 11:18 12:24 12:30 WBC Hgb Hct MCHC RDW Neutrophils # (Manual) Lymphocytes # (Manual) Metamyelocytes # (Man) Myelocytes # (Manual) Nucleated RBCs PT INR D-Dimer ABG pH ABG pCO2 ABG pO2 ABG HCO3 ABG Total CO2 ABG O2 Saturation Potassium Chloride Carbon Dioxide BUN Creatinine Glucose POC Glucose (mg/dL) 140 H Osmolality Plasma Lactic Acid Héctor Calcium Magnesium Ferritin AST ALT Alkaline Phosphatase Ammonia Lactate Dehydrogenase Creatine Kinase Troponin I 0.444 H* C-Reactive Protein Total Protein Albumin Procalcitonin Urine Protein Trace H Urine Ketones Trace H Urine WBC 7 H Urine Bacteria Rare H Hyaline Casts 19 H Urine Mucus Occasional H 08/05/19 08/05/19 08/05/19 12:30 12:30 16:53 WBC Hgb Hct MCHC RDW Neutrophils # (Manual) Lymphocytes # (Manual) Metamyelocytes # (Man) Myelocytes # (Manual) Nucleated RBCs PT INR D-Dimer ABG pH ABG pCO2 ABG pO2 ABG HCO3 ABG Total CO2 ABG O2 Saturation Potassium Chloride Carbon Dioxide BUN 69 H Creatinine 1.65 H Glucose 145 H POC Glucose (mg/dL) Osmolality 319 H Plasma Lactic Acid Héctor 3.1 H* 2.7 H* Calcium 7.9 L Magnesium Ferritin AST 2690 H ALT 1106 H Alkaline Phosphatase Ammonia 146 H Lactate Dehydrogenase Creatine Kinase Troponin I C-Reactive Protein 544.2 H Total Protein Albumin Procalcitonin Urine Protein Urine Ketones Urine WBC Urine Bacteria Hyaline Casts Urine Mucus 08/05/19 08/05/19 08/05/19 16:53 16:57 20:30 WBC Hgb Hct MCHC RDW Neutrophils # (Manual) Lymphocytes # (Manual) Metamyelocytes # (Man) Myelocytes # (Manual) Nucleated RBCs PT 12.9 H INR 1.3 H D-Dimer ABG pH 7.19 L* ABG pCO2 57 H ABG pO2 ABG HCO3 ABG Total CO2 ABG O2 Saturation Potassium Chloride Carbon Dioxide BUN Creatinine Glucose POC Glucose (mg/dL) 110 H Osmolality Plasma Lactic Acid Héctor Calcium Magnesium Ferritin AST ALT Alkaline Phosphatase Ammonia Lactate Dehydrogenase Creatine Kinase Troponin I C-Reactive Protein Total Protein Albumin Procalcitonin Urine Protein Urine Ketones Urine WBC Urine Bacteria Hyaline Casts Urine Mucus 08/06/19 08/06/19 08/06/19 04:15 04:15 04:15 WBC Hgb Hct MCHC RDW 16.3 H Neutrophils # (Manual) Lymphocytes # (Manual) 0.51 L Metamyelocytes # (Man) 1.90 H Myelocytes # (Manual) 0.73 H Nucleated RBCs PT INR D-Dimer ABG pH ABG pCO2 ABG pO2 ABG HCO3 ABG Total CO2 ABG O2 Saturation Potassium 5.4 H Chloride 112 H Carbon Dioxide 19 L BUN 67 H Creatinine Glucose 146 H POC Glucose (mg/dL) Osmolality Plasma Lactic Acid Héctor Calcium 6.5 L Magnesium Ferritin 6363.4 H AST 3354 H ALT 1962 H Alkaline Phosphatase Ammonia Lactate Dehydrogenase 8367 H Creatine Kinase 6114 H* Troponin I C-Reactive Protein Total Protein 5.5 L Albumin 3.0 L Procalcitonin Urine Protein Urine Ketones Urine WBC Urine Bacteria Hyaline Casts Urine Mucus 08/06/19 08/06/19 08/06/19 04:17 13:41 18:40 WBC Hgb Hct MCHC RDW Neutrophils # (Manual) Lymphocytes # (Manual) Metamyelocytes # (Man) Myelocytes # (Manual) Nucleated RBCs PT INR D-Dimer ABG pH 7.12 L* 7.24 L ABG pCO2 58 H 47 H ABG pO2 187 H ABG HCO3 19 L 20 L ABG Total CO2 ABG O2 Saturation 98.4 H Potassium Chloride Carbon Dioxide BUN Creatinine Glucose POC Glucose (mg/dL) 172 H Osmolality Plasma Lactic Acid Héctor Calcium Magnesium Ferritin AST ALT Alkaline Phosphatase Ammonia Lactate Dehydrogenase Creatine Kinase Troponin I C-Reactive Protein Total Protein Albumin Procalcitonin Urine Protein Urine Ketones Urine WBC Urine Bacteria Hyaline Casts Urine Mucus 08/06/19 08/07/19 08/07/19 19:59 00:01 04:35 WBC 17.1 H Hgb 12.2 L Hct 38.5 L MCHC RDW 16.9 H Neutrophils # (Manual) 14.50 H Lymphocytes # (Manual) 0.68 L Metamyelocytes # (Man) 0.86 H Myelocytes # (Manual) 0.68 H Nucleated RBCs 11 H PT INR D-Dimer ABG pH ABG pCO2 ABG pO2 ABG HCO3 ABG Total CO2 ABG O2 Saturation Potassium Chloride Carbon Dioxide BUN Creatinine Glucose POC Glucose (mg/dL) 166 H 217 H Osmolality Plasma Lactic Acid Héctor Calcium Magnesium Ferritin AST ALT Alkaline Phosphatase Ammonia Lactate Dehydrogenase Creatine Kinase Troponin I C-Reactive Protein Total Protein Albumin Procalcitonin Urine Protein Urine Ketones Urine WBC Urine Bacteria Hyaline Casts Urine Mucus 08/07/19 08/07/19 08/07/19 04:35 04:35 04:35 WBC Hgb Hct MCHC RDW Neutrophils # (Manual) Lymphocytes # (Manual) Metamyelocytes # (Man) Myelocytes # (Manual) Nucleated RBCs PT INR D-Dimer 33.03 H ABG pH ABG pCO2 ABG pO2 ABG HCO3 ABG Total CO2 ABG O2 Saturation Potassium Chloride 109 H Carbon Dioxide BUN 83 H Creatinine 1.55 H Glucose 189 H POC Glucose (mg/dL) Osmolality Plasma Lactic Acid Héctor Calcium 6.4 L* Magnesium 2.5 H Ferritin 8169.7 H AST 2996 H ALT 2751 H Alkaline Phosphatase Ammonia Lactate Dehydrogenase 5738 H Creatine Kinase 2431 H* Troponin I C-Reactive Protein 622.5 H Total Protein 5.4 L Albumin 2.8 L Procalcitonin 21.61 H Urine Protein Urine Ketones Urine WBC Urine Bacteria Hyaline Casts Urine Mucus 08/07/19 08/07/19 08/07/19 05:54 06:50 11:26 WBC Hgb Hct MCHC RDW Neutrophils # (Manual) Lymphocytes # (Manual) Metamyelocytes # (Man) Myelocytes # (Manual) Nucleated RBCs PT INR D-Dimer ABG pH ABG pCO2 ABG pO2 ABG HCO3 ABG Total CO2 ABG O2 Saturation Potassium Chloride Carbon Dioxide BUN Creatinine Glucose POC Glucose (mg/dL) 191 H 202 H Osmolality Plasma Lactic Acid Héctor Calcium Magnesium Ferritin AST ALT Alkaline Phosphatase Ammonia 97 H Lactate Dehydrogenase Creatine Kinase Troponin I C-Reactive Protein Total Protein Albumin Procalcitonin Urine Protein Urine Ketones Urine WBC Urine Bacteria Hyaline Casts Urine Mucus 08/07/19 08/07/19 08/08/19 18:01 23:47 04:40 WBC 22.8 H Hgb 12.0 L Hct 36.3 L MCHC RDW 16.9 H Neutrophils # (Manual) 20.90 H Lymphocytes # (Manual) 0.91 L Metamyelocytes # (Man) 0.46 H Myelocytes # (Manual) 0.23 H Nucleated RBCs 1 H PT INR D-Dimer ABG pH ABG pCO2 ABG pO2 ABG HCO3 ABG Total CO2 ABG O2 Saturation Potassium Chloride Carbon Dioxide BUN Creatinine Glucose POC Glucose (mg/dL) 167 H 221 H Osmolality Plasma Lactic Acid Héctor Calcium Magnesium Ferritin AST ALT Alkaline Phosphatase Ammonia Lactate Dehydrogenase Creatine Kinase Troponin I C-Reactive Protein Total Protein Albumin Procalcitonin Urine Protein Urine Ketones Urine WBC Urine Bacteria Hyaline Casts Urine Mucus 08/08/19 08/08/19 08/08/19 04:40 04:40 05:12 WBC Hgb Hct MCHC RDW Neutrophils # (Manual) Lymphocytes # (Manual) Metamyelocytes # (Man) Myelocytes # (Manual) Nucleated RBCs PT INR D-Dimer ABG pH 7.46 H ABG pCO2 34 L ABG pO2 ABG HCO3 ABG Total CO2 25 H ABG O2 Saturation 97.6 H Potassium Chloride 114 H Carbon Dioxide BUN 70 H Creatinine Glucose 195 H POC Glucose (mg/dL) Osmolality Plasma Lactic Acid Héctor Calcium 6.7 L Magnesium Ferritin AST 745 H ALT 1647 H Alkaline Phosphatase 144 H Ammonia 85 H Lactate Dehydrogenase Creatine Kinase Troponin I C-Reactive Protein Total Protein 5.3 L Albumin 2.7 L Procalcitonin Urine Protein Urine Ketones Urine WBC Urine Bacteria Hyaline Casts Urine Mucus 08/08/19 12:00 WBC Hgb Hct MCHC RDW Neutrophils # (Manual) Lymphocytes # (Manual) Metamyelocytes # (Man) Myelocytes # (Manual) Nucleated RBCs PT INR D-Dimer ABG pH ABG pCO2 ABG pO2 ABG HCO3 ABG Total CO2 ABG O2 Saturation Potassium Chloride Carbon Dioxide BUN Creatinine Glucose POC Glucose (mg/dL) 214 H Osmolality Plasma Lactic Acid Héctor Calcium Magnesium Ferritin AST ALT Alkaline Phosphatase Ammonia Lactate Dehydrogenase Creatine Kinase Troponin I C-Reactive Protein Total Protein Albumin Procalcitonin Urine Protein Urine Ketones Urine WBC Urine Bacteria Hyaline Casts Urine Mucus Assessment and Plan Assessment: * Altered mental status, likely related to severe toxic metabolic encephalopathy, due to the reasons as below. * Patient is septic with positive blood cultures, significant pneumonia, shock liver, hyperammonemia, elevated blood urea nitrogen * Ventilator-dependent respiratory failure on mechanical ventilation. * COPD Plan: * Patient had an EEG performed today. We'll review the results. * Infectious disease also on board. Will leave it up to ID, if lumbar puncture would be indicated. * Patient's ammonia level is elevated. Patient is on Depakote 500 mg twice a day for mood stabilization. No history of seizures. I would suggest tapering off Depakote, to help improving his mental status and with ammonia. * Your medical management.
--- NOTE | 2019-08-08 17:07 | EEG ---
ELECTROENCEPHALOGRAM REPORT DATE OF SERVICE: 08/08/2019. PREAMBLE: This is a 64-year-old male with altered mental status. This study is performed to evaluate for any epileptiform activity and evaluate for encephalopathy. EEG FINDINGS: This is a 21-channel portable routine EEG recording utilizing 10-20 international system with referential and bipolar montages. The recording starts and continues with presence of very low voltage, severely suppressed amplitude activity in bihemispheric region. Some generalized slow waves and delta waves were seen in bihemispheric region. Photic response was not checked. Different stages of sleep were not seen. No focal or generalized epileptiform activity was seen. IMPRESSION: This is a severely abnormal EEG due to severely suppressed background with generalized slowing. This is suggestive of generalized cerebral dysfunction, as can be seen with severe toxic metabolic or anoxic encephalopathy or due to diffuse structural brain abnormality. No epileptiform activity was seen. MMODL / IJN: [id number] /
[2019-08-08] MEDS: IBUPROFEN 600 MG TAB PO PRN (17:51)
[2019-08-08] MEDS: SODIUM CHLORIDE 0.9% 1,000 ML IV SCH (17:52)
[2019-08-08 17:55] LABS: Glucose,Whole Blood 228 mg/dL (75-99)
--- NOTE | 2019-08-08 22:51 | PN ---
PROGRESS NOTE DATE OF SERVICE: 08/08/2019 REASON FOR FOLLOWUP: MSSA bacteremia and aspiration pneumonia. INTERVAL HISTORY: The patient has been running a fever of 101 degrees Fahrenheit. The patient is hemodynamically stable, not on any pressor support. FiO2 is currently at 50%. No purulent secretion through the ET or any diarrhea has been reported. PHYSICAL EXAMINATION: Blood pressure 132/75 with a pulse of 103, temperature 98.3. He is 95% on 50% FiO2. General description is a middle-aged male lying in bed in no distress. RESPIRATORY SYSTEM: Unlabored breathing with decreased breath sounds at the base. No wheeze. HEART: S1, S2. Regular rate and rhythm. ABDOMEN: Soft. No tenderness. LABS: Hemoglobin is 12, white count 22.8 with a BUN of 7, creatinine 0.90. DIAGNOSTIC IMPRESSION AND PLAN: Patient with sepsis. Source is likely pneumonia with likely aspiration etiology with MSSA bacteremia. Antibiotic has been adjusted to Zosyn. Vancomycin to be continued because of his staphylococcus bacteremia. However, need to monitor his kidney function closely with this antibiotic combination, and continue supportive care. MMODL / IJN: [id number] /
[2019-08-08 23:54] LABS: Glucose,Whole Blood 209 mg/dL (75-99)
[2019-08-09] MEDS: INSULIN ASPART (NovoLOG) 100 UNIT/ML VIAL SQ SCH ×4 (00:24→18:19)
[2019-08-09] MEDS: PIPERACILLIN-TAZOBACTAM 3.375 GM in SODIUM CHLORIDE 0.9% 100 ML IVPB SCH ×3 (00:25→15:44)
[2019-08-09 04:46] LABS: AST 215 U/L (17-59); Creatine Kinase 395 U/L (55-170); LDH 1508 U/L (313-618)
[2019-08-09 04:54] LABS: ALT 1001 U/L (4-49)
[2019-08-09 05:03] LABS: Anisocytosis Slight; HGB 12.2 gm/dL (13.0-17.5); MCH 25.9 pg (25.0-35.0); MCHC 31.2 g/dL (31.0-37.0); MCV 82.9 fL (80.0-100.0); Mean Platelet Volume 8.5; Platelet Count 160 k/uL (150-450); RBC 4.71 m/uL (4.30-5.90); RDW 17.4 % (11.5-15.5); WBC 23.2 k/uL (3.8-10.6)
[2019-08-09 05:07] LABS: African American GFR (CKD) >90 (>60 ml/min/1.73 sqM); Anion Gap 6 mmol/L; Blood Urea Nitrogen 65 mg/dL (9-20); Calcium 7.1 mg/dL (8.4-10.2); Carbon Dioxide 27 mmol/L (22-30); Chloride 114 mmol/L (98-107); Glucose 262 mg/dL (74-99); Non-African American GFR(CKD) >90 (>60 ml/min/1.73 sqM); Potassium 4.4 mmol/L (3.5-5.1); Sodium 147 mmol/L (137-145)
[2019-08-09 05:33] LABS: ABG Base Excess 4.4 mmol/L; ABG HCO3 28 mmol/L (21-25); ABG Oxygen Saturation 93.2 % (94-97); ABG PCO2 36 mmHg (35-45); ABG PO2 71 mmHg (83-108); ABG TCO2 29 mmol/L (19-24)
[2019-08-09 05:35] LABS: Allen Test Performed? no
[2019-08-09 05:39] LABS: Glucose,Whole Blood 234 mg/dL (75-99)
[2019-08-09] MEDS: VANCOMYCIN 1,750 MG in SODIUM CHLORIDE 0.9% 500 ML 500 ML IVPB SCH ×2 (05:43→18:19)
--- NOTE | 2019-08-09 06:42 | XR ---
EXAMINATION TYPE: XR chest 1V portable DATE OF EXAM: 08/09/2019 CLINICAL HISTORY: Difficulty breathing progress study. TECHNIQUE: Single AP portable semiupright view of the chest is obtained. COMPARISON: Chest x-ray from one day earlier and older studies. FINDINGS: Stable endotracheal tube, orogastric tube, and right internal jugular central venous jose j ter. Persistent partial visualization of metallic hardware left shoulder level. Degenerative change right glenohumeral joint redemonstrated. Chronic parenchymal changes with small bilateral pleural effusions redemonstrated. Right greater than left bilateral lower lung opacities and central vascular congesti on remain present. Cardiac silhouette size stable and within normal limits IMPRESSION: Persistent fairly moderate central vascular congestion and small to moderate-sized bilate ral pleural effusions suspected with associated right greater than left bilateral lower lung acute in filtrate and/or atelectasis. No significant change from one day earlier.
[2019-08-09] MEDS: NOREPINEPHRINE 4 MG in SODIUM CHLORIDE 0.9% 250 ML IV SCH (07:35)
[2019-08-09] MEDS ORDERED: HEPARIN SOD,PORK IN 0.45% NACL 25,000 UNIT in 0.45% NACL 1 250ML.BAG IV SCH (08:00)
[2019-08-09] MEDS: METOPROLOL TARTRATE 50 MG TAB PO SCH ×3 (08:38→21:06)
[2019-08-09] MEDS: CHLORHEXIDINE GLUCONATE 15 ML CUP MUCOUS MEM SCH ×2 (08:38→21:05)
[2019-08-09] MEDS: ASPIRIN 81 MG PO SCH (08:38)
[2019-08-09] MEDS: PANTOPRAZOLE 40 MG/10 ML VIAL IV SCH (08:39)
[2019-08-09] MEDS: VALPROIC ACID ORAL SOLN 250 MG/5 ML CUP OG-TUBE SCH ×2 (08:39→21:06)
[2019-08-09] MEDS: FUROSEMIDE 10 MG/ML 4 ML VIAL IV SCH (08:39)
[2019-08-09] MEDS: AMIODARONE 300 MG in DEXTROSE 5% IN WATER 250 ML IV SCH ×4 (10:23→21:30)
[2019-08-09 11:17] LABS: Prothrombin Time 10.7 sec (9.0-12.0)
--- NOTE | 2019-08-09 11:24 | P.PN ---
Subjective Progress Note Date: 08/09/19 62-year-old male patient who was brought into the emergency department today unresponsive and profoundly hypoxic. The patient was in acute hypoxic respiratory failure. Initial pulse ox was in the mid 30s. Apparently he was not also communicating or responding. He was apparently awake and alert on the morning prior to him coming to the hospital according to the landlord. The landlord noted that the patient was appearing ill and called EMS. Upon EMS arrival, the patient was found to be obtunded. He had a fever of 10 1F. He was found to be hypoxic, brought into the emergency room he was found to be tachycardic and hypoxic with was placed on supplemental oxygen without any benefit and ultimately the patient was intubated and placed on a mechanical ventilator. COVID 19 is suspected. The patient was placed on the opposite isolation. The patient had the appropriate nasal swabs. Chest x-ray showed bilateral airspace disease consistent with pneumonia in addition to interstitial pneumonitis. ET tube was around 3.7 cm above the mario. NG tube was extending into the left abdomen. There was a right upper lobe consolidation noted and a tiny right-sided pleural effusion. No evidence of any pneumothorax. There was bilateral infiltrates and coarse interstitium and a prosthetic left shoulder. The patient has a white cell count of 4.9. He had some lymphopenia. His platelet counts is no within normal limits. The blood gases was done on 100% nonrebreather showed a pH of 7.17 with a pCO2 of 66 and pO2 of 45. The patient also had an acute kidney injury with a creatinine of 1.65. Epigastric level was at 3.1. The ALT is at 1106 with an ammonia level of 146 and a bilirubin of 0.5 and an albumin of 4.1. The serum alcohol was negative and the patient has negative salicylates and acetaminophen. Influenza screen has been negative. Covid 19 analysis still pending for now. This patient lives with a sister in a house and he collects Social Security disability. He has had issues with mental health and the patient has been dealing with bipolar disorder and chronic insomnia of many years duration. He has also chronic anxiety disorder. No history of any previous suicidal ideation or intent. No delusions or hallucinations based on recent psychiatric evaluation that was in the hospital. On today's evaluation of 62,020 the patient is being seen in follow-up in the in tensive care unit. Noted the patient is intubated on a mechanical ventilator and is suspected to have Covid 19. He is afebrile on today's evaluation. He remains on a mechanical ventilator. He is sedated with propofol running at 20 mg per KG per minute. He was given a total of 5 L of IV fluid as the patient was hypotensive and currently the fluid is running at 75 mL an hour of normal saline. He remains on norepinephrine infusion at 0.08 mg per KG per minute. He remains on a mechanical ventilator. His assist-control mode at the rate of 28 with a tidal volume of 450 and FiO2 of 60% with a PEEP of 15. His blood gases showed a pH of 7.12 with a pCO2 of 58 and pO2 of 187. This was done and FiO2 of 100%. Otherwise, the patient has blood abnormalities it is consistent with Covid 19 infection. He has a rhabdomyolysis with a CPK level of 6114. He has also transaminitis with a AST of 3354, ALT of 1962, and his LDH level is at 8367. His creatinine is at 1.2, which is up from a baseline of 1.65 with fluid resuscitation. His current minute ventilation is 13 L. I made recommendations to keep the same vent setting. Based on the blood on of some non-anion gap metabolic acidosis, and with recommendations to start the patient on bicarb infusion and addition to 2 A of IV bicarb pushes. He was having temperatures throughout the night with temperature maximum 100.8. Current temperature is 99.6. He'll be started on enteral feeding for nutritional support. Covid 19 evaluation is still pending for now. On today's evaluation of 08/07/2019 and seeing this patient for a follow-up. The patient has sedated with propofol. He was given a sedation holiday yesterday and his neurologic exam was suboptimal as the patient did not show adequate neurologic recovery. Based on that, a CAT scan of the brain was done and the CAT scan of the brain was negative for any acute abnormalities. Noted the patient was profoundly hypoxic and at time of admission to the hospital and there is a suspicion for hypoxic encephalopathy. Contrary to my expectations, the patient checked negative for Covid 19 infection. The blood culture came back positive for staph aureus. Currently is on a combination of cefepime and vancomycin. The patient was resuscitated with more than 5 L of normal saline and the patient is also requiring some pressors for hemodynamic support and levo fed was started and 8 on was placed on hold as of 5:00 this morning. Urine output in the order of 40 mL an hour. In terms of sedation, the patient is on propofol at 20 g per KG per minute. Note that the patient had issues with a significant leak around his orotracheal tube. This was replaced yesterday by [employer] without any major difficulties. This morning, he remains on a VC plus mode with a rate of 28 and a tidal volume of 450 and a nighttime of 1 second with a PEEP of 15 with an FiO2 of 50%. Blood gases from today showed a pH of 7.36 with a pCO2 of 37 and pO2 of 92. Chest x-ray showing diffuse bilateral pulmonary infiltrates. His cardiac rhythm is still in atrial fibrillation. He is on amiodarone maintenance at 0.5 mg per minute. The patient has a creatinine of 1.5. There is still evidence of transaminitis with elevation of the AST and ALP and both are improving. LDH level is elevated at 5738. CPKs improving at 2431. C-reactive protein is elevated at 622. Note that the LDH is on the decline, CPKs on the decline on today's evaluation. LFTs are also improving. On 08/08/2019 on seeing this patient for a follow-up. The patient has been off sedation since yesterday. I am not seeing an adequate neurologic recovery in this patient. There may be a component of hepatic encephalopathy in the patient's went into shock liver. Nevertheless, his ammonia is dropping. He is on lactulose. He is producing adequate amount of bowel activity. He is undergoing training the painful stimulation. Pupils are about 3 mm in size and there is C-reactive to light. There is a very weak cough and a gag. Absolutely no response to deep painful stimulation. No seizure activity has been noted. Neurology will be consulted on the case. EEG will be ordered. Meanwhile, the patient is clearly becoming a case of possible aspiration staphylococcal pneumonia. His blood culture came back positive for staph aureus. His sputum positive for staph. He also has gram-negative bacillus in his sputum which route returner to be E. coli. For now, the cultures and the blood to be MSSA. The patient was on examination of cefepime and vancomycin. I dropped the cefepime and I utilized Zosyn to give him better anaerobic coverage as the patient clearly has a history of aspiration. Meanwhile, the Covid test came back negative. The patient remains on a mechanical ventilator. On today's chest x-ray there is worsening over the bilateral pulmonary infiltrates worse on the right. ET tube remains in a good location. The patient remains on an assist-control mode at the rate of 18 with a tidal volume of 450 and FiO2 of 50% with a PEEP of 10. Blood gas showed a pH of 7.46 with a pCO2 of 34 and pO2 of 103. CVP is ranging between 12 and 14. He remains in atrial fibrillation. He is on amiodarone drip maintenance at 0.5 mg per minute. He is also on normal saline at the rate of 75 mL an hour. His age fibrillation is under better control and he is on no pressors. He can tolerate beta blockers. He is having low-grade fever still. The white cell count is up to 22. The shock liver is improving including the AST and ALP level. The LDH level was elevated. The CPKs also improving is down to 2431. His ammonia level is down to 85. His coagulation profile is within normal limits. On 08/09/2019 the patient is being seen in follow-up in intensive care unit. Unfortunately, the patient has been off sedation for more than 24 hours and the patient is still not showing significant neurologic recovery. The patient is not following any specific commands. In fact he is not even withdrawing to deep painful stimulation. No seizure activity has been noted. EEG was done and showed diffuse slowing and it was consistent with severe encephalopathy which could be toxic metabolic encephalopathy versus hypoxic encephalopathy. The patient will be kept off sedation. Meanwhile, the ammonia level is progressively coming down and is down to 58. He continues to have a week cough and gag reflex. The patient remains in atrial fibrillation. The patient remained on assist control mode of ventilation. He is on VC plus mode at the rate of 28 with a tidal volume of 450 and FiO2 of 50% with a PEEP of 10. The blood gases from today shows a component of respiratory alkalosis with a pH of 7.5 with a pCO2 of 36 and pO2 of 71. The white cell count of 23. The patient has developed some hyperchloremic hypernatremia in the sodium level is up to 147 with a chloride of 114. Renal function is stable. The patient is receiving vital high protein at the rate of 52 mL an hour. In terms of atrial fibrillation, I had utilized back the amiodarone drip at 0.5 mg per minute and the patient is also on metoprolol 50 mg by mouth 3 times a day. Heart rate is still slightly tachycardic and will continue the same regimen for now. The patient was given a dose of Lasix yesterday. The patient Is producing better urine output for now. His weight is still up. The CPKs down to 395. The AST is down to 1000. ALT is down to 58. LDH is down to 03/10/2007. Calcium level at 7.1. No other significant issues otherwise over the past 24 hours. He remains on a combination of Zosyn and vancomycin. The blood culture and the sputum culture was positive for MSSA. The sputum culture was positive for E. coli. The chest x-ray still showing rather consolidation worse on the right compared to the left. ET tube remains in a good location. Objective - Vital Signs Vital signs: Vital Signs Temp 100.1 F H 08/09/19 08:00 Pulse 120 H 08/09/19 11:00 Resp 24 08/09/19 11:00 BP 148/100 08/09/19 11:00 Pulse Ox 93 L 08/09/19 11:00 Intake & Output 08/08/19 08/09/19 08/09/19 18:59 06:59 18:59 Intake Total 2039 1187 772 Output Total 2655 1310 2910 [facility] [phone] Weight 106.1 kg 106.1 kg Intake: IV 971 217 170 Amiodarone 300 mg In 25 Dextrose 5% in Water 250 ml @ 0.5 MG/MIN 25 mls/hr IV .Q10H [facility] Rx#: [id number] Piperacillin-Tazobactam 3 175 25 100 .375 gm In Sodium Chloride 0.9% 100 ml @ 25 mls/hr IVPB Q8HR [facility] Rx# :[id number] Pressure bag 66 72 30 Sodium Chloride 0.9% 1, 205 120 40 000 ml @ 10 mls/hr IV . Q24H [facility] Rx#:[id number] Vancomycin 1,750 mg In 500 Sodium Chloride 0.9% 500 ml 500 ml @ 167 mls/hr IVPB Q12H [facility] Rx#: [id number] Intake, IV Titration 250 100 250 Amount Amiodarone 300 mg In 250 Dextrose 5% in Water 250 ml @ 0.5 MG/MIN 25 mls/hr IV .Q10H [facility] Rx#: [id number] Amiodarone 300 mg In 250 Dextrose 5% in Water 250 ml @ 0.5 MG/MIN 25 mls/hr IV .Q10H [facility] Rx#: [id number] Piperacillin-Tazobactam 3 100 .375 gm In Sodium Chloride 0.9% 100 ml @ 25 mls/hr IVPB Q8HR [facility] Rx# :[id number] Tube Feeding 728 780 322 Other 90 90 30 Output: Urine 2655 1110 2910 Stool 200 Other: Voiding Method Indwelling Catheter Indwelling Catheter Indwelling Catheter ABP, PAP, CO, CI - Last Documented Arterial Blood Pressure 164/85 - Exam Gen. appearance, the patient remains off sedation, nonacute distress intubated on a mechanical ventilator. Orogastric and orotracheal tube are both in place Head exam was generally normal. There was no scleral icterus or corneal arcus. Mucous membranes were moist. Neck was supple and without jugular venous distension, thyromegaly, or carotid bruits. Carotids were easily palpable bilaterally. There was no adenopathy. Lungs were clear to auscultation and percussion, and with normal diaphragmatic excursion. No wheezes or rales were noted. Cardiac exam revealed the PMI to be normally situated and sized. The rhythm was regular and no extrasystoles were noted during several minutes of auscultation. The first and second heart sounds were normal and physiologic splitting of the second heart sound was noted. There were no murmurs, rubs, clicks, or gallops. Abdominal exam revealed normal bowel sounds. The abdomen was soft, non-tender, and without masses, organomegaly, or appreciable enlargement of the abdominal aorta. Examination of the extremities revealed easily palpable radial, femoral and pedal pulses. There was no cyanosis, clubbing or edema. Examination of the skin revealed no evidence of significant rashes, suspicious appearing nevi or other concerning lesions. Neurologically the patient is unresponsive. Not following any commands. Not withdrawing to any painful stimulation. Pupils are 3 mm in size and they're sluggish and reactive to light. No nystagmus. No clonus. DTRs are +1 and symmetric in all 4 extremities. The patient is not withdrawing to any painful stimulation. Does not follow any verbal stimulation. The cough reflex is weak. The gag reflex is also weak. The patient has been off sedation for now.. - Labs CBC & Chem 7: 08/09/19 04:25 08/09/19 04:25 Labs: Abnormal Lab Results - Last 24 Hours (Table) 08/08/19 08/08/19 08/08/19 Range/Units 12:00 17:53 23:51 WBC (3.8-10.6) k/uL Hgb (13.0-17.5) gm/dL RDW (11.5-15.5) % APTT (22.0-30.0) sec ABG pH (7.35-7.45) ABG pO2 (83-108) mmHg ABG HCO3 (21-25) mmol/L ABG Total CO2 (19-24) mmol/L ABG O2 Saturation (94-97) % Sodium (137-145) mmol/L Chloride (98-107) mmol/L BUN (9-20) mg/dL Glucose (74-99) mg/dL POC Glucose (mg/dL) 214 H 228 H 209 H (75-99) mg/dL Calcium (8.4-10.2) mg/dL AST (17-59) U/L ALT (4-49) U/L Ammonia (<30) umol/L Lactate Dehydrogenase (313-618) U/L Creatine Kinase (55-170) U/L 08/09/19 08/09/19 08/09/19 Range/Units 04:25 04:25 04:25 WBC 23.2 H (3.8-10.6) k/uL Hgb 12.2 L (13.0-17.5) gm/dL RDW 17.4 H (11.5-15.5) % APTT (22.0-30.0) sec ABG pH (7.35-7.45) ABG pO2 (83-108) mmHg ABG HCO3 (21-25) mmol/L ABG Total CO2 (19-24) mmol/L ABG O2 Saturation (94-97) % Sodium (137-145) mmol/L Chloride (98-107) mmol/L BUN (9-20) mg/dL Glucose (74-99) mg/dL POC Glucose (mg/dL) (75-99) mg/dL Calcium (8.4-10.2) mg/dL AST 215 H (17-59) U/L ALT 1001 H (4-49) U/L Ammonia 58 H (<30) umol/L Lactate Dehydrogenase 1508 H (313-618) U/L Creatine Kinase 395 H (55-170) U/L 08/09/19 08/09/19 08/09/19 Range/Units 04:25 05:30 05:37 WBC (3.8-10.6) k/uL Hgb (13.0-17.5) gm/dL RDW (11.5-15.5) % APTT (22.0-30.0) sec ABG pH 7.50 H (7.35-7.45) ABG pO2 71 L (83-108) mmHg ABG HCO3 28 H (21-25) mmol/L ABG Total CO2 29 H (19-24) mmol/L ABG O2 Saturation 93.2 L (94-97) % Sodium 147 H (137-145) mmol/L Chloride 114 H (98-107) mmol/L BUN 65 H (9-20) mg/dL Glucose 262 H (74-99) mg/dL POC Glucose (mg/dL) 234 H (75-99) mg/dL Calcium 7.1 L (8.4-10.2) mg/dL AST (17-59) U/L ALT (4-49) U/L Ammonia (<30) umol/L Lactate Dehydrogenase (313-618) U/L Creatine Kinase (55-170) U/L 08/09/19 Range/Units 08:50 WBC (3.8-10.6) k/uL Hgb (13.0-17.5) gm/dL RDW (11.5-15.5) % APTT 21.5 L (22.0-30.0) sec ABG pH (7.35-7.45) ABG pO2 (83-108) mmHg ABG HCO3 (21-25) mmol/L ABG Total CO2 (19-24) mmol/L ABG O2 Saturation (94-97) % Sodium (137-145) mmol/L Chloride (98-107) mmol/L BUN (9-20) mg/dL Glucose (74-99) mg/dL POC Glucose (mg/dL) (75-99) mg/dL Calcium (8.4-10.2) mg/dL AST (17-59) U/L ALT (4-49) U/L Ammonia (<30) umol/L Lactate Dehydrogenase (313-618) U/L Creatine Kinase (55-170) U/L Microbiology - Last 24 Hours (Table) 08/05/19 16:53 Blood Culture Gram Stain - Final Blood Blood Culture - Final Staphylococcus aureus 08/05/19 21:56 Gram Stain - Preliminary Sputum Sputum Culture - Preliminary Staphylococcus aureus Escherichia coli Yeast species Assessment and Plan Plan: 1 acute hypoxic/hypercapnic respiratory failure with development of diffuse bilateral pulmonary for placing consolidation right more than left. It's more obvious currently the patient has a bacterial infectious cause underlying his respiratory failure which probably is related to an aspiration pneumonia. Sputum is positive for E. coli and staph aureus which may route returner to be an MSSA. I have him on a combination of Zosyn and vancomycin for now. Covid 19 testing came back negative. On today's evaluation the blood gas shows a component of respiratory alkalosis and the necessary ventilator changes will be done today. Chest x-ray was noted. Antibiotic coverage was noted. The staff aureus route returner to be MSSA and antibiotics can be simplified to Zosyn only. ID is on the case. 2 acute ventilator-dependent respiratory failure secondary to above, see above discussion 3 acute febrile illness secondary to above, still having low-grade fever 4 acute kidney injury, recovered 5 acute lactic acidosis, improved 6 unresponsiveness and the patient continues to be unresponsive despite being off sedation for more than 24 almost 48 hours. There is concern towards hypoxic encephalopathy. Neurologist on the case. EEG shows diffuse encephalopathy could be essentially metabolic versus hypoxic encephalopathy. CAT scan of the brain was done showed no acute abnormalities. The patient was hypoxic for an unknown period of time prior to him coming to the hospital. At time of arrival his pulse ox was in the 60s. Nevertheless he also had shock liver with significant metabolic disturbances. Ammonia level is on the decline as the p atient is recovering from his shock liver. 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 14 acute leukocytosis 15 staph aureus septicemia, MSSA 16 suspicion for aspiration. Plan Continue same vent setting for today Cut down the IV fluids to KVO Give the [id number] mg IV Lasix and this may be repeated Utilize Zosyn and vancomycin as the patient has had possibly some aspiration and Zosyn gives us a better anaerobic coverage. He has also good coverage regarding MSSA and E. coli. I would leave the antibiotic simplification or changes up to 4 times a day. Continue amiodarone drip for rate control at a rate of 0.5 mg per minute. This is being given in conjunction with metoprolol. Utilize metoprolol at a dose of 50 mg twice a day for rate control IV heparin regarding chronic atrial fibrillation. Liver function tests and CPKs are all improving neurology consultation EEG was noted I discussed with the power of attorney law clerk which happens to be his sister and she lives in [place] and I updated her on the condition. Enteral feeding for nutritional support We'll continue to follow. Condition is critical and this evaluation was done a than 30 minutes. the prognosis poor obviously specially if the patient turns out to be having a component of hypoxic encephalopathy and neurologic function does not recover. Time with Patient: Greater than 30
[2019-08-09 12:32] LABS: Glucose,Whole Blood 238 mg/dL (75-99)
[2019-08-09] MEDS: IBUPROFEN 600 MG TAB PO PRN (12:52)
[2019-08-09] MEDS ORDERED: DEXTROSE 5% IN WATER 100 ML with AMIODARONE 150 MG IV ONE (13:00)
[2019-08-09] MEDS: SODIUM CHLORIDE 0.9% 1,000 ML IV SCH (14:43)
--- NOTE | 2019-08-09 15:30 | P.PN ---
Subjective Patient is admitted for acute hypoxic and hypercapnic respiratory failure which was believed to be secondary to Covid 19 pneumonia patient is presently on FiO2 of 60%. Patient does have related troponin by highly elevated be high d-dimer is of which patient is on anti-correlation dose of the Lovenox. Patient scored 19 is pending patient has chest x-ray findings consistent with the pulmonary edema or atypical pneumonia or Covid 19 pneumonia along with the significant transaminitis elevated highly elevated LDH highly elevated. Ferritin and si gnificant lymphopenia ration continues to have fever. Patient also has acute renal failure secondary to possibly acute tubular necrosis patient is on sodium bicarbonate and D5 because of hyperkalemia. 08/07/2019 Patient the white blood cell count went up to 17,000. His blood cultures are positive for staph aureus we'll repeat the blood cultures tomorrow. Patient liver enzymes are elevated because of shock liver ultrasound did not show significant abnormality. Patient had an elevated ammonia yesterday which is actually better now after lactulose, patient is off pressors. Patient remains on amiodarone. Computed tomography scan of the brain did not show any significant abnormality patient Covid 19 is negative patient remains on cefepime and vancomycin. Primary source is probably lung. Patient has fairly good urine output at 400 mL per hour on volume control ventilation set up respiratory rate of 28 total volume of 450 PEEP of 15 episode of 50% patient's hypercapnic respiratory failure improved and hypoxic respiratory failure improved patient has pH of 7.36 pCO2 of 37 08/07/2028 patient doesn't have any significant clinical improvement remains bacteremic repeat blood cultures are being obtained for today and tomorrow as well. Patient has staph aureus in the blood patient probably will need the transesophageal echocardiogram. Patient is off sedation but is not arousable yet because of which neurology is evaluating the patient and patient is getting EEG patient remains on Vanco mycin cefepime was switched to Zosyn because of concern for aspiration patient aspirin cultures are positive for staph aureus and E. coli along with the species infectious disease is following the patient as well. 08/10/2019 She is still the remains is severely encephalopathic and it and the just withdrawing from painful stimuli off sedation for about 2 days. Patient has severe toxic and metabolic encephalopathy patient is mildly alkalotic patient's present tidal volume is 450 and set up respiratory rate was Down now and patient is breathing over the ventilator and is breathing at around 24/m on an average. FiO2 of 50% PEEP of 10. Patient liver enzymes are bit better patient remains on Zosyn and vancomycin probably vancomycin can be discontinued as patient has MSSA in the blood cultures. Infectious disease is following the patient. Patient white blood cell count remains high patient eventually will need a BRENDA to rule out endocarditis, will plan on this if he has some response on the antibiotics and less encephalopathic and if there is any improvement Review Of systems: Unable to obtain due to his clinical condition. All inpatient medications were reviewed and appropriate changes in these medications as dictated in the interval history and assessment and plan. Objective - Vital Signs Vital signs: Vital Signs Temp 100.5 F H 08/09/19 12:00 Pulse 78 08/09/19 14:00 Resp 25 H 08/09/19 14:00 BP 156/103 08/09/19 14:00 Pulse Ox 93 L 08/09/19 14:00 Intake & Output 08/08/19 08/09/19 08/09/19 18:59 06:59 18:59 Intake Total 2039 1187 1473 Output Total 2655 1310 3575 Balance -822 -070 -1112 Weight 106.1 kg 106.1 kg Intake: IV 971 217 523 Amiodarone 300 mg In 25 Dextrose 5% in Water 250 ml @ 0.5 MG/MIN 25 mls/hr IV .Q10H [facility] Rx#: [id number] Amiodarone 300 mg In 175 Dextrose 5% in Water 250 ml @ 0.5 MG/MIN 25 mls/hr IV .Q10H [facility] Rx#: [id number] Dextrose 5% in Water 100 100 ml @ 618 mls/hr IV .Q10M ONE with Amiodarone 150 mg Rx#:[id number] Piperacillin-Tazobactam 3 175 25 100 .375 gm In Sodium Chloride 0.9% 100 ml @ 25 mls/hr IVPB Q8HR [facility] Rx# :[id number] Pressure bag 66 72 48 Sodium Chloride 0.9% 1, 205 120 100 000 ml @ 10 mls/hr IV . Q24H [facility] Rx#:[id number] Vancomycin 1,750 mg In 500 Sodium Chloride 0.9% 500 ml 500 ml @ 167 mls/hr IVPB Q12H [facility] Rx#: [id number] Intake, IV Titration 250 100 250 Amount Amiodarone 300 mg In 250 Dextrose 5% in Water 250 ml @ 0.5 MG/MIN 25 mls/hr IV .Q10H [facility] Rx#: [id number] Amiodarone 300 mg In 250 Dextrose 5% in Water 250 ml @ 0.5 MG/MIN 25 mls/hr IV .Q10H [facility] Rx#: [id number] Piperacillin-Tazobactam 3 100 .375 gm In Sodium Chloride 0.9% 100 ml @ 25 mls/hr IVPB Q8HR [facility] Rx# :[id number] Tube Feeding 728 780 570 Other 90 90 130 Output: Urine 2655 1110 3575 Stool 200 Other: Voiding Method Indwelling Catheter Indwelling Catheter Indwelling Catheter ABP, PAP, CO, CI - Last Documented Arterial Blood Pressure 189/75 - Exam PHYSICAL EXAMINATION: GENERAL: Patient is intubated sedated and vented to settings as mentioned above patient is a FiO2 of 60% PEEP of 15 pedal volume of 450 set up respiratory rate of 28 assist-control ventilation. ABGs hypoxic hypercapnic respiratory failure with pH of 7.17 pCO2 66 by mouth to 45 bicarbonate 19 HEENT: Pupils are round and equally reacting to light. EOMI. No scleral icterus. No conjunctival pallor. Normocephalic, atraumatic. No pharyngeal erythema. No thyromegaly. CARDIOVASCULAR: S1 and S2 present. No murmurs, rubs, or gallops. PULMONARY: Chest is clear to auscultation, no wheezing or crackles. ABDOMEN: Soft, nontender, nondistended, normoactive bowel sounds. No palpable organomegaly. MUSCULOSKELETAL: No joint swelling or deformity. EXTREMITIES: No cyanosis, clubbing, or pedal edema. NEUROLOGICAL: Gross neurological examination did not reveal any focal deficits. SKIN: No rashes. - Labs CBC & Chem 7: 08/09/19 04:25 08/09/19 04:25 Labs: Abnormal Lab Results - Last 24 Hours (Table) 08/08/19 08/08/19 08/09/19 Range/Units 17:53 23:51 04:25 WBC (3.8-10.6) k/uL Hgb (13.0-17.5) gm/dL RDW (11.5-15.5) % APTT (22.0-30.0) sec ABG pH (7.35-7.45) ABG pO2 (83-108) mmHg ABG HCO3 (21-25) mmol/L ABG Total CO2 (19-24) mmol/L ABG O2 Saturation (94-97) % Sodium (137-145) mmol/L Chloride (98-107) mmol/L BUN (9-20) mg/dL Glucose (74-99) mg/dL POC Glucose (mg/dL) 228 H 209 H (75-99) mg/dL Calcium (8.4-10.2) mg/dL AST (17-59) U/L ALT (4-49) U/L Ammonia 58 H (<30) umol/L Lactate Dehydrogenase (313-618) U/L Creatine Kinase (55-170) U/L 08/09/19 08/09/19 08/09/19 Range/Units 04:25 04:25 04:25 WBC 23.2 H (3.8-10.6) k/uL Hgb 12.2 L (13.0-17.5) gm/dL RDW 17.4 H (11.5-15.5) % APTT (22.0-30.0) sec ABG pH (7.35-7.45) ABG pO2 (83-108) mmHg ABG HCO3 (21-25) mmol/L ABG Total CO2 (19-24) mmol/L ABG O2 Saturation (94-97) % Sodium 147 H (137-145) mmol/L Chloride 114 H (98-107) mmol/L BUN 65 H (9-20) mg/dL Glucose 262 H (74-99) mg/dL POC Glucose (mg/dL) (75-99) mg/dL Calcium 7.1 L (8.4-10.2) mg/dL AST 215 H (17-59) U/L ALT 1001 H (4-49) U/L Ammonia (<30) umol/L Lactate Dehydrogenase 1508 H (313-618) U/L Creatine Kinase 395 H (55-170) U/L 08/09/19 08/09/19 08/09/19 Range/Units 05:30 05:37 08:50 WBC (3.8-10.6) k/uL Hgb (13.0-17.5) gm/dL RDW (11.5-15.5) % APTT 21.5 L (22.0-30.0) sec ABG pH 7.50 H (7.35-7.45) ABG pO2 71 L (83-108) mmHg ABG HCO3 28 H (21-25) mmol/L ABG Total CO2 29 H (19-24) mmol/L ABG O2 Saturation 93.2 L (94-97) % Sodium (137-145) mmol/L Chloride (98-107) mmol/L BUN (9-20) mg/dL Glucose (74-99) mg/dL POC Glucose (mg/dL) 234 H (75-99) mg/dL Calcium (8.4-10.2) mg/dL AST (17-59) U/L ALT (4-49) U/L Ammonia (<30) umol/L Lactate Dehydrogenase (313-618) U/L Creatine Kinase (55-170) U/L 08/09/19 Range/Units 12:29 WBC (3.8-10.6) k/uL Hgb (13.0-17.5) gm/dL RDW (11.5-15.5) % APTT (22.0-30.0) sec ABG pH (7.35-7.45) ABG pO2 (83-108) mmHg ABG HCO3 (21-25) mmol/L ABG Total CO2 (19-24) mmol/L ABG O2 Saturation (94-97) % Sodium (137-145) mmol/L Chloride (98-107) mmol/L BUN (9-20) mg/dL Glucose (74-99) mg/dL POC Glucose (mg/dL) 238 H (75-99) mg/dL Calcium (8.4-10.2) mg/dL AST (17-59) U/L ALT (4-49) U/L Ammonia (<30) umol/L Lactate Dehydrogenase (313-618) U/L Creatine Kinase (55-170) U/L Microbiology - Last 24 Hours (Table) 08/07/19 05:10 Blood Culture Gram Stain - Final Blood Blood Culture - Final Staphylococcus aureus 08/05/19 21:56 Gram Stain - Final Sputum Sputum Culture - Preliminary Staphylococcus aureus Escherichia coli [place] sp,not albicans/galbr 08/05/19 16:53 Blood Culture Gram Stain - Final Blood Blood Culture - Final Staphylococcus aureus Assessment and Plan Plan: Acute hypoxic and hypercapnic respiratory failure probably secondary to sepsis from a staphylococcal bacteremia possible COPD exacerbation. Continue ventilator support with the above-mentioned vent settings continue with inhalational treatments patient is on systemic steroids mostly for covid 19. His blood cultures remained positive persistent bacteremia with MSSA -Sepsis shock shock resolved probably secondary to staphylococcal pneumonia, patient has persistent bacteremia with the MRSA need to BRENDA to evaluate for endocarditis. Patient can use to have fever -Possible anoxic brain injury and severe encephalopathy from sepsis. Patient has worsening leukocytosis barely arousable in spite of discontinuation of sedation for more than 48 hours. -Acute renal failure possibly acute tubular necrosis patient creatinine improved with IV fluids -Lactic acidosis secondary to sepsis -Hyperlipidemia next and heparin hypertension -Elevated liver enzymes probably secondary to shock liver. -Hepatic encephalopathy: Ammonia level is bit better now. -Troponin leak secondary to myocardial injury from sepsis. -Severe pulmonary hypertension
--- NOTE | 2019-08-09 16:29 | PN ---
PROGRESS NOTE DATE OF SERVICE: 08/09/2019 REASON FOR FOLLOWUP: MSSA bacteremia and aspiration pneumonia. INTERVAL HISTORY: The patient overall feels better and has improved, with T-max of 100.1 to 100.6. The patient is hemodynamically stable, not on any pressor support. FiO2 is currently down to 50%. No significant purulent secretion through the ET. Did have some diarrhea, though laxative has been put on hold. PHYSICAL EXAMINATION: Blood pressure 156/100 with a pulse of 78, temperature of 99. He is 93% on 50% FiO2. General description is a middle-aged male lying in bed in no distress. RESPIRATORY SYSTEM: Unlabored breathing. Clear to auscultation anteriorly. HEART: S1, S2. Regular rate and rhythm. ABDOMEN: Soft. No tenderness. LABS: Hemoglobin is 12.2, white count 23.2. BUN of 65, creatinine 0.73. DIAGNOSTIC IMPRESSION AND PLAN: Patient with sepsis. Source is multifactorial in this patient who did have a component of aspiration pneumonia. Sputum has been multiple pathogens. Blood culture with MSSA. The patient is currently covered with Zosyn and vancomycin; to continue while monitoring his clinical course and kidney function closely. Continue with supportive care. MMODL / IJN: [id number] / [id number]
[2019-08-09] MEDS: HEPARIN SOD,PORK IN 0.45% NACL 25,000 UNIT in 0.45% NACL 1 250ML.BAG IV SCH (16:45)
[2019-08-09] MEDS: HEPARIN SODIUM,PORCINE 5,000 UNIT/ML 1 ML VIAL IV PRN (16:48)
[2019-08-09 17:55] LABS: Glucose,Whole Blood 261 mg/dL (75-99)
[2019-08-09 23:57] LABS: Glucose,Whole Blood 206 mg/dL (75-99)
[2019-08-10] MEDS: INSULIN ASPART (NovoLOG) 100 UNIT/ML VIAL SQ SCH ×5 (00:01→23:55)
[2019-08-10] MEDS: PIPERACILLIN-TAZOBACTAM 3.375 GM in SODIUM CHLORIDE 0.9% 100 ML IVPB SCH ×4 (00:03→23:46)
[2019-08-10] MEDS: HEPARIN SODIUM,PORCINE 5,000 UNIT/ML 1 ML VIAL IV PRN (00:37)
--- NOTE | 2019-08-10 01:38 | P.PN ---
Subjective Progress Note Date: 08/10/19 Patient not any improvement. Off sedation for last 48 hours. Objective - Vital Signs Vital signs: Vital Signs Temp 98.8 F 08/09/19 20:00 Pulse 68 08/09/19 23:00 Resp 24 08/09/19 23:00 BP 154/84 08/09/19 23:00 Pulse Ox 91 L 08/09/19 23:00 Intake & Output 08/09/19 08/09/19 08/10/19 06:59 18:59 06:59 Intake Total 1187 2522.315 821.068 Output Total 1310 4000 630 Balance -123 -1477.685 191.068 Weight 106.1 kg 106.1 kg Intake: IV 217 1262 220 Amiodarone 300 mg In 275 125 Dextrose 5% in Water 250 ml @ 0.5 MG/MIN 25 mls/hr IV .Q10H [facility] Rx#: [id number] Dextrose 5% in Water 100 100 ml @ 618 mls/hr IV .Q10M ONE with Amiodarone 150 mg Rx#:[id number] Piperacillin-Tazobactam 3 25 175 25 .375 gm In Sodium Chloride 0.9% 100 ml @ 25 mls/hr IVPB Q8HR [facility] Rx# :[id number] Pressure bag 72 72 30 Sodium Chloride 0.9% 1, 120 140 40 000 ml @ 10 mls/hr IV . Q24H [facility] Rx#:[id number] Vancomycin 1,750 mg In 500 Sodium Chloride 0.9% 500 ml 500 ml @ 167 mls/hr IVPB Q12H [facility] Rx#: [id number] Intake, IV Titration 100 250.315 102.068 Amount Amiodarone 300 mg In 250 Dextrose 5% in Water 250 ml @ 0.5 MG/MIN 25 mls/hr IV .Q10H [facility] Rx#: [id number] Heparin Sod,Pork in 0.45% 0.315 102.068 NaCl 25,000 unit In 0.45 % NaCl 1 250ml.bag @ 12 UNITS/KG/HR 12.732 mls/hr IV .[id number] [facility] Rx#: [id number] Piperacillin-Tazobactam 3 100 .375 gm In Sodium Chloride 0.9% 100 ml @ 25 mls/hr IVPB Q8HR [facility] Rx# :[id number] Tube Feeding 780 880 399 Other 90 130 100 Output: Urine 1110 4000 630 Stool 200 Other: Voiding Method Indwelling Catheter Indwelling Catheter Indwelling Catheter ABP, PAP, CO, CI - Last Documented Arterial Blood Pressure 183/72 - Exam Patient's pupils are sluggishly reacting. Not responsive to painful stimuli. Patient has weak gag. - Labs CBC & Chem 7: 08/09/19 04:25 08/09/19 04:25 Labs: Abnormal Lab Results - Last 24 Hours (Table) 08/09/19 08/09/19 08/09/19 Range/Units 04:25 04:25 04:25 WBC 23.2 H (3.8-10.6) k/uL Hgb 12.2 L (13.0-17.5) gm/dL RDW 17.4 H (11.5-15.5) % APTT (22.0-30.0) sec ABG pH (7.35-7.45) ABG pO2 (83-108) mmHg ABG HCO3 (21-25) mmol/L ABG Total CO2 (19-24) mmol/L ABG O2 Saturation (94-97) % Sodium (137-145) mmol/L Chloride (98-107) mmol/L BUN (9-20) mg/dL Glucose (74-99) mg/dL POC Glucose (mg/dL) (75-99) mg/dL Calcium (8.4-10.2) mg/dL AST 215 H (17-59) U/L ALT 1001 H (4-49) U/L Ammonia 58 H (<30) umol/L Lactate Dehydrogenase 1508 H (313-618) U/L Creatine Kinase 395 H (55-170) U/L 08/09/19 08/09/19 08/09/19 Range/Units 04:25 05:30 05:37 WBC (3.8-10.6) k/uL Hgb (13.0-17.5) gm/dL RDW (11.5-15.5) % APTT (22.0-30.0) sec ABG pH 7.50 H (7.35-7.45) ABG pO2 71 L (83-108) mmHg ABG HCO3 28 H (21-25) mmol/L ABG Total CO2 29 H (19-24) mmol/L ABG O2 Saturation 93.2 L (94-97) % Sodium 147 H (137-145) mmol/L Chloride 114 H (98-107) mmol/L BUN 65 H (9-20) mg/dL Glucose 262 H (74-99) mg/dL POC Glucose (mg/dL) 234 H (75-99) mg/dL Calcium 7.1 L (8.4-10.2) mg/dL AST (17-59) U/L ALT (4-49) U/L Ammonia (<30) umol/L Lactate Dehydrogenase (313-618) U/L Creatine Kinase (55-170) U/L 08/09/19 08/09/19 08/09/19 Range/Units 08:50 12:29 17:53 WBC (3.8-10.6) k/uL Hgb (13.0-17.5) gm/dL RDW (11.5-15.5) % APTT 21.5 L (22.0-30.0) sec ABG pH (7.35-7.45) ABG pO2 (83-108) mmHg ABG HCO3 (21-25) mmol/L ABG Total CO2 (19-24) mmol/L ABG O2 Saturation (94-97) % Sodium (137-145) mmol/L Chloride (98-107) mmol/L BUN (9-20) mg/dL Glucose (74-99) mg/dL POC Glucose (mg/dL) 238 H 261 H (75-99) mg/dL Calcium (8.4-10.2) mg/dL AST (17-59) U/L ALT (4-49) U/L Ammonia (<30) umol/L Lactate Dehydrogenase (313-618) U/L Creatine Kinase (55-170) U/L 08/09/19 08/09/19 Range/Units 23:28 23:56 WBC (3.8-10.6) k/uL Hgb (13.0-17.5) gm/dL RDW (11.5-15.5) % APTT 30.6 H (22.0-30.0) sec ABG pH (7.35-7.45) ABG pO2 (83-108) mmHg ABG HCO3 (21-25) mmol/L ABG Total CO2 (19-24) mmol/L ABG O2 Saturation (94-97) % Sodium (137-145) mmol/L Chloride (98-107) mmol/L BUN (9-20) mg/dL Glucose (74-99) mg/dL POC Glucose (mg/dL) 206 H (75-99) mg/dL Calcium (8.4-10.2) mg/dL AST (17-59) U/L ALT (4-49) U/L Ammonia (<30) umol/L Lactate Dehydrogenase (313-618) U/L Creatine Kinase (55-170) U/L Microbiology - Last 24 Hours (Table) 08/07/19 05:10 Blood Culture Gram Stain - Final Blood Blood Culture - Final Staphylococcus aureus 08/05/19 21:56 Gram Stain - Final Sputum Sputum Culture - Preliminary Staphylococcus aureus Escherichia coli [place] sp,not albicans/galbr Assessment and Plan Assessment: * Altered mental status, likely related to severe toxic metabolic encephalopathy, due to the reasons as below. * Patient is septic with positive blood cultures, significant pneumonia, shock liver, hyperammonemia, elevated blood urea nitrogen * Ventilator-dependent respiratory failure on mechanical ventilation. * COPD Plan: * Patient's EEG revealed severe background suppression and slowing, consistent with severe encephalopathy. No epileptiform activity was seen. * Infectious disease also on board. Will leave it up to ID, if lumbar puncture would be indicated. * Patient's ammonia level is elevated. Patient is on Depakote 500 mg twice a day for mood stabilization. No history of seizures. I have reduced Depakote to 250 mA twice a day. May slowly wean it off. * Your medical management. * Neurology will sign off. Please call neurology if any other concerns.
[2019-08-10] MEDS: HEPARIN SOD,PORK IN 0.45% NACL 25,000 UNIT in 0.45% NACL 1 250ML.BAG IV SCH ×2 (04:29→20:12)
[2019-08-10 04:33] LABS: ABG Base Excess 9.7 mmol/L; ABG HCO3 33 mmol/L (21-25); ABG PCO2 39 mmHg (35-45); ABG PH 7.53 (7.35-7.45); ABG PO2 63 mmHg (83-108); ABG TCO2 34 mmol/L (19-24); Allen Test Performed? Yes
[2019-08-10 04:44] LABS: Anisocytosis Slight; Basophils # (A) 0.2 k/uL (0-0.2); Basophils % (A) 1 %; Eosinophils % (A) 0 %; Hypochromasia Slight; Lymphocytes # (A) 1.2 k/uL (1.0-4.8); Lymphocytes % (A) 4 %; MCH 26.9 pg (25.0-35.0); MCHC 31.9 g/dL (31.0-37.0); MCV 84.5 fL (80.0-100.0); Mean Platelet Volume 8.5; Monocytes # (A) 1.4 k/uL (0-1.0); Monocytes % (A) 5 %; Neutrophils # (A) 23.9 k/uL (1.3-7.7); Neutrophils % (A) 88 %; Platelet Count 178 k/uL (150-450); RBC 5.21 m/uL (4.30-5.90); RDW 17.2 % (11.5-15.5); WBC 27.3 k/uL (3.8-10.6)
[2019-08-10 04:55] LABS: African American GFR (CKD) >90 (>60 ml/min/1.73 sqM); Anion Gap 5 mmol/L; Blood Urea Nitrogen 54 mg/dL (9-20); Calcium 7.5 mg/dL (8.4-10.2); Carbon Dioxide 30 mmol/L (22-30); Chloride 114 mmol/L (98-107); Glucose 177 mg/dL (74-99); Non-African American GFR(CKD) >90 (>60 ml/min/1.73 sqM); Potassium 4.1 mmol/L (3.5-5.1); Sodium 149 mmol/L (137-145)
[2019-08-10] MEDS: VANCOMYCIN 1,750 MG in SODIUM CHLORIDE 0.9% 500 ML 500 ML IVPB SCH (06:03)
--- NOTE | 2019-08-10 06:03 | XR ---
EXAMINATION TYPE: XR chest 1V portable DATE OF EXAM: 08/10/2019 HISTORY: Tube placement. REFERENCE: Previous study dated 08/09/2019. FINDINGS: The patient's ET tube, NG tube and right internal jugular catheter remain in place, unchang ed in appearance. There has been a previous left shoulder arthroplasty. There is worsening right basilar airspace disease. There is continuing left basilar airspace disease. Heart size is obscured. There is vascular congestion. There are bilateral effusions. IMPRESSION: 1. CARDIOMEGALY. 2. BIBASILAR AIRSPACE DISEASE WHICH IS WORSENING ON THE RIGHT. 3. BILATERAL EFFUSIONS. 4. VASCULAR CONGESTION.
[2019-08-10 06:06] LABS: Glucose,Whole Blood 156 mg/dL (75-99)
[2019-08-10] MEDS ORDERED: DEXTROSE 5% IN WATER 1,000 ML IV ONE (07:48)
[2019-08-10] MEDS: AMIODARONE 300 MG in DEXTROSE 5% IN WATER 250 ML IV SCH ×2 (08:27)
[2019-08-10] MEDS: CHLORHEXIDINE GLUCONATE 15 ML CUP MUCOUS MEM SCH ×2 (09:22→20:16)
[2019-08-10] MEDS: METOPROLOL TARTRATE 50 MG TAB PO SCH ×3 (09:22→21:43)
[2019-08-10] MEDS: PANTOPRAZOLE 40 MG/10 ML VIAL IV SCH (09:22)
[2019-08-10] MEDS: FUROSEMIDE 10 MG/ML 4 ML VIAL IV SCH (09:22)
[2019-08-10] MEDS: ASPIRIN 81 MG PO SCH (09:23)
[2019-08-10] MEDS: AMIODARONE 200 MG TAB PO SCH ×2 (09:23→20:16)
[2019-08-10] MEDS: DIVALPROEX 250 MG TABLET.DR PO SCH ×2 (09:24→20:17)
[2019-08-10 09:34] LABS: Albumin 2.8 g/dL (3.5-5.0); Bilirubin,Unconjugated 0.5 mg/dL (0.0-1.1); Total Bilirubin 0.5 mg/dL (0.2-1.3); Total Protein 5.7 g/dL (6.3-8.2)
[2019-08-10] MEDS: ACETAMINOPHEN TAB 325 MG TAB PO PRN (10:29)
--- NOTE | 2019-08-10 11:27 | P.PN ---
Subjective Progress Note Date: 08/10/19 62-year-old male patient who was brought into the emergency department today unresponsive and profoundly hypoxic. The patient was in acute hypoxic respiratory failure. Initial pulse ox was in the mid 30s. Apparently he was not also communicating or responding. He was apparently awake and alert on the morning prior to him coming to the hospital according to the landlord. The landlord noted that the patient was appearing ill and called EMS. Upon EMS arrival, the patient was found to be obtunded. He had a fever of 10 1F. He was found to be hypoxic, brought into the emergency room he was found to be tachycardic and hypoxic with was placed on supplemental oxygen without any benefit and ultimately the patient was intubated and placed on a mechanical ventilator. COVID 19 is suspected. The patient was placed on the opposite isolation. The patient had the appropriate nasal swabs. Chest x-ray showed bilateral airspace disease consistent with pneumonia in addition to interstitial pneumonitis. ET tube was around 3.7 cm above the mario. NG tube was extending into the left abdomen. There was a right upper lobe consolidation noted and a tiny right-sided pleural effusion. No evidence of any pneumothorax. There was bilateral infiltrates and coarse interstitium and a prosthetic left shoulder. The patient has a white cell count of 4.9. He had some lymphopenia. His platelet counts is no within normal limits. The blood gases was done on 100% nonrebreather showed a pH of 7.17 with a pCO2 of 66 and pO2 of 45. The patient also had an acute kidney injury with a creatinine of 1.65. Epigastric level was at 3.1. The ALT is at 1106 with an ammonia level of 146 and a bilirubin of 0.5 and an albumin of 4.1. The serum alcohol was negative and the patient has negative salicylates and acetaminophen. Influenza screen has been negative. Covid 19 analysis still pending for now. This patient lives with a sister in a house and he collects Social Security disability. He has had issues with mental health and the patient has been dealing with bipolar disorder and chronic insomnia of many years duration. He has also chronic anxiety disorder. No history of any previous suicidal ideation or intent. No delusions or hallucinations based on recent psychiatric evaluation that was in the hospital. On today's evaluation of 62,020 the patient is being seen in follow-up in the in tensive care unit. Noted the patient is intubated on a mechanical ventilator and is suspected to have Covid 19. He is afebrile on today's evaluation. He remains on a mechanical ventilator. He is sedated with propofol running at 20 mg per KG per minute. He was given a total of 5 L of IV fluid as the patient was hypotensive and currently the fluid is running at 75 mL an hour of normal saline. He remains on norepinephrine infusion at 0.08 mg per KG per minute. He remains on a mechanical ventilator. His assist-control mode at the rate of 28 with a tidal volume of 450 and FiO2 of 60% with a PEEP of 15. His blood gases showed a pH of 7.12 with a pCO2 of 58 and pO2 of 187. This was done and FiO2 of 100%. Otherwise, the patient has blood abnormalities it is consistent with Covid 19 infection. He has a rhabdomyolysis with a CPK level of 6114. He has also transaminitis with a AST of 3354, ALT of 1962, and his LDH level is at 8367. His creatinine is at 1.2, which is up from a baseline of 1.65 with fluid resuscitation. His current minute ventilation is 13 L. I made recommendations to keep the same vent setting. Based on the blood on of some non-anion gap metabolic acidosis, and with recommendations to start the patient on bicarb infusion and addition to 2 A of IV bicarb pushes. He was having temperatures throughout the night with temperature maximum 100.8. Current temperature is 99.6. He'll be started on enteral feeding for nutritional support. Covid 19 evaluation is still pending for now. On today's evaluation of 08/07/2019 and seeing this patient for a follow-up. The patient has sedated with propofol. He was given a sedation holiday yesterday and his neurologic exam was suboptimal as the patient did not show adequate neurologic recovery. Based on that, a CAT scan of the brain was done and the CAT scan of the brain was negative for any acute abnormalities. Noted the patient was profoundly hypoxic and at time of admission to the hospital and there is a suspicion for hypoxic encephalopathy. Contrary to my expectations, the patient checked negative for Covid 19 infection. The blood culture came back positive for staph aureus. Currently is on a combination of cefepime and vancomycin. The patient was resuscitated with more than 5 L of normal saline and the patient is also requiring some pressors for hemodynamic support and levo fed was started and 8 on was placed on hold as of 5:00 this morning. Urine output in the order of 40 mL an hour. In terms of sedation, the patient is on propofol at 20 g per KG per minute. Note that the patient had issues with a significant leak around his orotracheal tube. This was replaced yesterday by [employer] without any major difficulties. This morning, he remains on a VC plus mode with a rate of 28 and a tidal volume of 450 and a nighttime of 1 second with a PEEP of 15 with an FiO2 of 50%. Blood gases from today showed a pH of 7.36 with a pCO2 of 37 and pO2 of 92. Chest x-ray showing diffuse bilateral pulmonary infiltrates. His cardiac rhythm is still in atrial fibrillation. He is on amiodarone maintenance at 0.5 mg per minute. The patient has a creatinine of 1.5. There is still evidence of transaminitis with elevation of the AST and ALP and both are improving. LDH level is elevated at 5738. CPKs improving at 2431. C-reactive protein is elevated at 622. Note that the LDH is on the decline, CPKs on the decline on today's evaluation. LFTs are also improving. On 08/08/2019 on seeing this patient for a follow-up. The patient has been off sedation since yesterday. I am not seeing an adequate neurologic recovery in this patient. There may be a component of hepatic encephalopathy in the patient's went into shock liver. Nevertheless, his ammonia is dropping. He is on lactulose. He is producing adequate amount of bowel activity. He is undergoing training the painful stimulation. Pupils are about 3 mm in size and there is C-reactive to light. There is a very weak cough and a gag. Absolutely no response to deep painful stimulation. No seizure activity has been noted. Neurology will be consulted on the case. EEG will be ordered. Meanwhile, the patient is clearly becoming a case of possible aspiration staphylococcal pneumonia. His blood culture came back positive for staph aureus. His sputum positive for staph. He also has gram-negative bacillus in his sputum which income tax return preparer to be E. coli. For now, the cultures and the blood to be MSSA. The patient was on examination of cefepime and vancomycin. I dropped the cefepime and I utilized Zosyn to give him better anaerobic coverage as the patient clearly has a history of aspiration. Meanwhile, the Covid test came back negative. The patient remains on a mechanical ventilator. On today's chest x-ray there is worsening over the bilateral pulmonary infiltrates worse on the right. ET tube remains in a good location. The patient remains on an assist-control mode at the rate of 18 with a tidal volume of 450 and FiO2 of 50% with a PEEP of 10. Blood gas showed a pH of 7.46 with a pCO2 of 34 and pO2 of 103. CVP is ranging between 12 and 14. He remains in atrial fibrillation. He is on amiodarone drip maintenance at 0.5 mg per minute. He is also on normal saline at the rate of 75 mL an hour. His age fibrillation is under better control and he is on no pressors. He can tolerate beta blockers. He is having low-grade fever still. The white cell count is up to 22. The shock liver is improving including the AST and ALP level. The LDH level was elevated. The CPKs also improving is down to 2431. His ammonia level is down to 85. His coagulation profile is within normal limits. On 08/09/2019 the patient is being seen in follow-up in intensive care unit. Unfortunately, the patient has been off sedation for more than 24 hours and the patient is still not showing significant neurologic recovery. The patient is not following any specific commands. In fact he is not even withdrawing to deep painful stimulation. No seizure activity has been noted. EEG was done and showed diffuse slowing and it was consistent with severe encephalopathy which could be toxic metabolic encephalopathy versus hypoxic encephalopathy. The patient will be kept off sedation. Meanwhile, the ammonia level is progressively coming down and is down to 58. He continues to have a week cough and gag reflex. The patient remains in atrial fibrillation. The patient remained on assist control mode of ventilation. He is on VC plus mode at the rate of 28 with a tidal volume of 450 and FiO2 of 50% with a PEEP of 10. The blood gases from today shows a component of respiratory alkalosis with a pH of 7.5 with a pCO2 of 36 and pO2 of 71. The white cell count of 23. The patient has developed some hyperchloremic hypernatremia in the sodium level is up to 147 with a chloride of 114. Renal function is stable. The patient is receiving vital high protein at the rate of 52 mL an hour. In terms of atrial fibrillation, I had utilized back the amiodarone drip at 0.5 mg per minute and the patient is also on metoprolol 50 mg by mouth 3 times a day. Heart rate is still slightly tachycardic and will continue the same regimen for now. The patient was given a dose of Lasix yesterday. The patient Is producing better urine output for now. His weight is still up. The CPKs down to 395. The AST is down to 1000. ALT is down to 58. LDH is down to 03/10/2007. Calcium level at 7.1. No other significant issues otherwise over the past 24 hours. He remains on a combination of Zosyn and vancomycin. The blood culture and the sputum culture was positive for MSSA. The sputum culture was positive for E. coli. The chest x-ray still showing rather consolidation worse on the right compared to the left. ET tube remains in a good location. On 08/10/2019 the patient has been approximately 72 hours of sedation. Unfortunately, we do not see any significant neurologic recovery the patient's condition. He is still not responding to any verbal or deep painful stimulation. He remains completely unresponsive. On this morning, I have a mild assist-control mode of ventilation with a VC plus mode at a tidal volume of 450 FiO2 of 50% with a PEEP of 10 and the respiratory rate of 24. His blood gases showed a component of respiratory alkalosis. His pH is at 7.53 with a pCO2 of 39 pO2 of 63. Chest x-ray still showing bilateral pneumonia bilateral airspace disease worse on the right along with cardiomegaly and bilateral pleural effusions. ET tube is in a good location. The patient's white cell count is at 27. The patient is still having episodes of fever. Most recent blood culture from 2 days ago was positive for MSSA and MSSA was also cultured and his lungs and it was cultured also E. coli in his lungs. We are still thinking that this was an aspiration pneumonia. Shock liver, his LFTs are nearly normalized, severe has also dropped and ammonia level is being monitored is still elevated at 83. The lactulose was held as the patient was having liquidy stool and the patient had become also hyperchloremic and the sodium level is up to 149. He is receiving free water supplements with NG for now. He is also on vital high protein. In terms of his atrial fibrillation, rate is under better control with a combination of amiodarone maintenance of 0.5 mg per minute and Cardizem drip at 10 mg an hour. The patient is also on IV heparin. The active issue for now is his altered mentation. Objective - Vital Signs Vital signs: Vital Signs Temp 102.8 F H 08/10/19 08:00 Pulse 87 08/10/19 11:00 Resp 26 H 08/10/19 11:00 BP 193/106 08/10/19 11:00 Pulse Ox 93 L 08/10/19 11:00 Intake & Output 08/09/19 08/10/19 08/10/19 18:59 06:59 18:59 Intake Total 2522.315 2505.688 334.755 Output Total 4000 1530 675 Balance -1477.685 975.688 -340.245 Weight 106.1 kg 106.8 kg Intake: IV 1262 1007 239 Amiodarone 300 mg In 275 300 Dextrose 5% in Water 250 ml @ 0.5 MG/MIN 25 mls/hr IV .Q10H [facility] Rx#: [id number] Dextrose 5% in Water 1, 75 000 ml @ 75 mls/hr IV . [id number] ONE Rx#:[id number] Dextrose 5% in Water 100 100 ml @ 618 mls/hr IV .Q10M ONE with Amiodarone 150 mg Rx#:[id number] Piperacillin-Tazobactam 3 175 25 100 .375 gm In Sodium Chloride 0.9% 100 ml @ 25 mls/hr IVPB Q8HR [facility] Rx# :[id number] Pressure bag 72 72 24 Sodium Chloride 0.9% 1, 140 110 40 000 ml @ 10 mls/hr IV . Q24H [facility] Rx#:[id number] Vancomycin 1,750 mg In 500 500 Sodium Chloride 0.9% 500 ml 500 ml @ 167 mls/hr IVPB Q12H [facility] Rx#: [id number] Intake, IV Titration 250.315 160.688 95.755 Amount Amiodarone 300 mg In 250 Dextrose 5% in Water 250 ml @ 0.5 MG/MIN 25 mls/hr IV .Q10H [facility] Rx#: [id number] Heparin Sod,Pork in 0.45% 0.315 160.688 95.755 NaCl 25,000 unit In 0.45 % NaCl 1 250ml.bag @ 12 UNITS/KG/HR 12.732 mls/hr IV .[id number] [facility] Rx#: [id number] Tube Feeding 880 1038 Other 130 300 Output: Urine 4000 1530 675 Other: Voiding Method Indwelling Catheter Indwelling Catheter Indwelling Catheter ABP, PAP, CO, CI - Last Documented Arterial Blood Pressure 193/86 - Exam Gen. appearance, the patient remains off sedation, nonacute distress intubated on a mechanical ventilator. Orogastric and orotracheal tube are both in place Head exam was generally normal. There was no scleral icterus or corneal arcus. Mucous membranes were moist. Neck was supple and without jugular venous distension, thyromegaly, or carotid bruits. Carotids were easily palpable bilaterally. There was no adenopathy. Lungs were clear to auscultation and percussion, and with normal diaphragmatic excursion. No wheezes or rales were noted. Cardiac exam revealed the PMI to be normally situated and sized. The rhythm was regular and no extrasystoles were noted during several minutes of auscultation. The first and second heart sounds were normal and physiologic splitting of the second heart sound was noted. There were no murmurs, rubs, clicks, or gallops. Abdominal exam revealed normal bowel sounds. The abdomen was soft, non-tender, and without masses, organomegaly, or appreciable enlargement of the abdominal aorta. Examination of the extremities revealed easily palpable radial, femoral and peda l pulses. There was no cyanosis, clubbing or edema. Examination of the skin revealed no evidence of significant rashes, suspicious appearing nevi or other concerning lesions. Neurologically the patient is unresponsive. Not following any commands. Not withdrawing to any painful stimulation. Pupils are 3 mm in size and they're sluggish and reactive to light. No nystagmus. No clonus. DTRs are +1 and symmetric in all 4 extremities. The patient is not withdrawing to any painful stimulation. Does not follow any verbal stimulation. The cough reflex is weak. The gag reflex is also weak. The patient has been off sedation for now.. - Labs CBC & Chem 7: 08/10/19 04:30 08/10/19 04:30 Labs: Abnormal Lab Results - Last 24 Hours (Table) 08/09/19 08/09/19 08/09/19 Range/Units 12:29 17:53 23:28 WBC (3.8-10.6) k/uL RDW (11.5-15.5) % Neutrophils # (1.3-7.7) k/uL Monocytes # (0-1.0) k/uL APTT 30.6 H (22.0-30.0) sec ABG pH (7.35-7.45) ABG pO2 (83-108) mmHg ABG HCO3 (21-25) mmol/L ABG Total CO2 (19-24) mmol/L ABG O2 Saturation (94-97) % Sodium (137-145) mmol/L Chloride (98-107) mmol/L BUN (9-20) mg/dL Creatinine (0.66-1.25) mg/dL Glucose (74-99) mg/dL POC Glucose (mg/dL) 238 H 261 H (75-99) mg/dL Calcium (8.4-10.2) mg/dL AST (17-59) U/L ALT (4-49) U/L Ammonia (<30) umol/L Total Protein (6.3-8.2) g/dL Albumin (3.5-5.0) g/dL 08/09/19 08/10/19 08/10/19 Range/Units 23:56 04:29 04:30 WBC 27.3 H (3.8-10.6) k/uL RDW 17.2 H (11.5-15.5) % Neutrophils # 23.9 H (1.3-7.7) k/uL Monocytes # 1.4 H (0-1.0) k/uL APTT (22.0-30.0) sec ABG pH 7.53 H (7.35-7.45) ABG pO2 63 L (83-108) mmHg ABG HCO3 33 H (21-25) mmol/L ABG Total CO2 34 H (19-24) mmol/L ABG O2 Saturation 91.0 L (94-97) % Sodium (137-145) mmol/L Chloride (98-107) mmol/L BUN (9-20) mg/dL Creatinine (0.66-1.25) mg/dL Glucose (74-99) mg/dL POC Glucose (mg/dL) 206 H (75-99) mg/dL Calcium (8.4-10.2) mg/dL AST (17-59) U/L ALT (4-49) U/L Ammonia (<30) umol/L Total Protein (6.3-8.2) g/dL Albumin (3.5-5.0) g/dL 08/10/19 08/10/19 08/10/19 Range/Units 04:30 06:05 06:33 WBC (3.8-10.6) k/uL RDW (11.5-15.5) % Neutrophils # (1.3-7.7) k/uL Monocytes # (0-1.0) k/uL APTT 33.0 H (22.0-30.0) sec ABG pH (7.35-7.45) ABG pO2 (83-108) mmHg ABG HCO3 (21-25) mmol/L ABG Total CO2 (19-24) mmol/L ABG O2 Saturation (94-97) % Sodium 149 H (137-145) mmol/L Chloride 114 H (98-107) mmol/L BUN 54 H (9-20) mg/dL Creatinine 0.62 L (0.66-1.25) mg/dL Glucose 177 H (74-99) mg/dL POC Glucose (mg/dL) 156 H (75-99) mg/dL Calcium 7.5 L (8.4-10.2) mg/dL AST (17-59) U/L ALT (4-49) U/L Ammonia (<30) umol/L Total Protein (6.3-8.2) g/dL Albumin (3.5-5.0) g/dL 08/10/19 08/10/19 Range/Units 09:16 09:16 WBC (3.8-10.6) k/uL RDW (11.5-15.5) % Neutrophils # (1.3-7.7) k/uL Monocytes # (0-1.0) k/uL APTT (22.0-30.0) sec ABG pH (7.35-7.45) ABG pO2 (83-108) mmHg ABG HCO3 (21-25) mmol/L ABG Total CO2 (19-24) mmol/L ABG O2 Saturation (94-97) % Sodium (137-145) mmol/L Chloride (98-107) mmol/L BUN (9-20) mg/dL Creatinine (0.66-1.25) mg/dL Glucose (74-99) mg/dL POC Glucose (mg/dL) (75-99) mg/dL Calcium (8.4-10.2) mg/dL AST 95 H (17-59) U/L ALT 586 H (4-49) U/L Ammonia 83 H (<30) umol/L Total Protein 5.7 L (6.3-8.2) g/dL Albumin 2.8 L (3.5-5.0) g/dL Microbiology - Last 24 Hours (Table) 08/05/19 21:56 Gram Stain - Final Sputum Sputum Culture - Final Staphylococcus aureus Escherichia coli [place] sp,not albicans/galbr 08/07/19 05:10 Blood Culture Gram Stain - Final Blood Blood Culture - Final Staphylococcus aureus Assessment and Plan Plan: 1 acute hypoxic/hypercapnic respiratory failure with development of diffuse bilateral pulmonary for placing consolidation right more than left. It's more obvious currently the patient has a bacterial infectious cause underlying his respiratory failure which probably is related to an aspiration pneumonia. Sputum is positive for E. coli and staph aureus which may income tax return preparer to be an MSSA. I have him on a combination of Zosyn and vancomycin for now. Covid 19 testing came back negative. On today's evaluation the blood gas shows a component of respiratory alkalosis and the necessary ventilator changes will be done today. Chest x-ray was noted. Antibiotic coverage was noted. The patient is still having bilateral consolidation and airspace disease in the lung bases right more than left. There is also cardiomegaly. The patient remains on a combination of Zosyn and vancomycin. Still febrile. Repeat culture will be obtained. 2 acute ventilator-dependent respiratory failure secondary to above, see above d iscussion, vent settings were noted, chest x-ray was noted, 3 acute febrile illness secondary to above, still having low-grade fever, rule out persistent bacteremia. Awaiting repeat blood cultures. 4 acute kidney injury, recovered 5 acute lactic acidosis, improved 6 unresponsiveness and the patient continues to be unresponsive despite being off sedation for more than 72 hours. There is concern towards hypoxic encephalopathy. Neurologist on the case. EEG shows diffuse encephalopathy could be essentially metabolic versus hypoxic encephalopathy. CAT scan of the brain was done showed no acute abnormalities. The patient was hypoxic for an unknown period of time prior to him coming to the hospital. At time of arrival his pulse ox was in the 60s. Nevertheless he also had shock liver with significant metabolic disturbances. Ammonia level is on the decline as the patient is recovering from his shock liver. Noted on today's evaluation the patient continues to be unresponsive. His been off sedation for the past 72 hours. His ammonia level is still been somewhat elevated at 83 although improved. The shock liver is improved. Otherwise is also improved. 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 14 acute leukocytosis 15 staph aureus septicemia, MSSA 16 hyperchloremic hypernatremia, secondary to diarrhea and intravascular volume depletion Plan Continue same vent setting for today, no vent changes for today We'll give the patient D5 water at the rate of 75 mL an hour in addition to free water flushes through the NG Utilize Zosyn and vancomycin as the patient has had possibly some aspiration and Zosyn gives us a better anaerobic coverage. He has also good coverage regarding MSSA and E. coli. I am going to repeat 2 sets of blood cultures central and peripheral rule out persistent bacteremia the patient is still having episodes of fever and the white cell count is elevated. I'm also going to repeat the protocol stone in level. Continue amiodarone drip for rate control at a rate of 0.5 mg per minute. This is being given in conjunction with metoprolol. Utilize metoprolol at a dose of 50 mg twice a day for rate control IV heparin regarding chronic atrial fibrillation. Liver function tests and CPKs are all improving neurology consultation EEG was noted Enteral feeding for nutritional support We'll continue to follow. Condition is critical and this evaluation was done a than 30 minutes. the prognosis poor obviously specially if the patient turns out to be having a component of hypoxic encephalopathy and neurologic function does not recover. Time with Patient: Greater than 30
[2019-08-10 12:00] LABS: Glucose,Whole Blood 177 mg/dL (75-99)
[2019-08-10] MEDS: SODIUM CHLORIDE 0.9% 1,000 ML IV SCH (12:11)
[2019-08-10] MEDS: hydrALAZINE HCL 20 MG/ML 1 ML VIAL IVP PRN (12:15)
[2019-08-10] MEDS ORDERED: IBUPROFEN 200 MG TAB PO PRN (12:25)
[2019-08-10] MEDS ORDERED: IBUPROFEN 600 MG TAB PO PRN (12:28)
[2019-08-10] MEDS: RIFAXIMIN 550 MG TABLET PO SCH ×2 (13:44→20:17)
[2019-08-10] MEDS: CLEVIDIPINE BUTYRATE 25 MG in EMPTY BAG 1 BAG IV SCH ×3 (15:22→21:36)
--- NOTE | 2019-08-10 15:38 | P.PN ---
Subjective Patient is admitted for acute hypoxic and hypercapnic respiratory failure which was believed to be secondary to Covid 19 pneumonia patient is presently on FiO2 of 60%. Patient does have related troponin by highly elevated be high d-dimer is of which patient is on anti-correlation dose of the Lovenox. Patient scored 19 is pending patient has chest x-ray findings consistent with the pulmonary edema or atypical pneumonia or Covid 19 pneumonia along with the significant transaminitis elevated highly elevated LDH highly elevated. Ferritin and si gnificant lymphopenia ration continues to have fever. Patient also has acute renal failure secondary to possibly acute tubular necrosis patient is on sodium bicarbonate and D5 because of hyperkalemia. 08/07/2019 Patient the white blood cell count went up to 17,000. His blood cultures are positive for staph aureus we'll repeat the blood cultures tomorrow. Patient liver enzymes are elevated because of shock liver ultrasound did not show significant abnormality. Patient had an elevated ammonia yesterday which is actually better now after lactulose, patient is off pressors. Patient remains on amiodarone. Computed tomography scan of the brain did not show any significant abnormality patient Covid 19 is negative patient remains on cefepime and vancomycin. Primary source is probably lung. Patient has fairly good urine output at 400 mL per hour on volume control ventilation set up respiratory rate of 28 total volume of 450 PEEP of 15 episode of 50% patient's hypercapnic respiratory failure improved and hypoxic respiratory failure improved patient has pH of 7.36 pCO2 of 37 08/07/2028 patient doesn't have any significant clinical improvement remains bacteremic repeat blood cultures are being obtained for today and tomorrow as well. Patient has staph aureus in the blood patient probably will need the transesophageal echocardiogram. Patient is off sedation but is not arousable yet because of which neurology is evaluating the patient and patient is getting EEG patient remains on Vanco mycin cefepime was switched to Zosyn because of concern for aspiration patient aspirin cultures are positive for staph aureus and E. coli along with the species infectious disease is following the patient as well. 08/09/2019 She is still the remains is severely encephalopathic and it and the just withdrawing from painful stimuli off sedation for about 2 days. Patient has severe toxic and metabolic encephalopathy patient is mildly alkalotic patient's present tidal volume is 450 and set up respiratory rate was Down now and patient is breathing over the ventilator and is breathing at around 24/m on an average. FiO2 of 50% PEEP of 10. Patient liver enzymes are bit better patient remains on Zosyn and vancomycin probably vancomycin can be discontinued as patient has MSSA in the blood cultures. Infectious disease is following the patient. Patient white blood cell count remains high patient eventually will need a BRENDA to rule out endocarditis, will plan on this if he has some response on the antibiotics and less encephalopathic and if there is any improvement 08/10/2019 No significant change in his clinical condition including his mental status which it has not improved at patient is hyponatremic because of IV fluids patient is on D5 water now because of hypernatremia and hyperchloremia. Patient remains in the same vent settings as as today remains bacteremic prognosis is extremely poor. Tomorrow we'll discuss with the family regarding overall goals of care. Patient is presently not on pressor support serum creatinine remains stable patient is on amiodarone for atrial fibrillation patient will need repeat blood cultures again tomorrow patient is having thick secretions from the endotracheal to. Patient is presently on Zosyn and vancomycin, rifampin was added patient was started on daily. Because of elevated blood pressure by clinic scheduler Review Of systems: Unable to obtain due to his clinical condition. All inpatient medications were reviewed and appropriate changes in these medications as dictated in the interval history and assessment and plan. Objective - Vital Signs Vital signs: Vital Signs Temp 102.4 F H 08/10/19 12:00 Pulse 95 08/10/19 15:00 Resp 23 08/10/19 15:00 BP 175/98 08/10/19 15:00 Pulse Ox 93 L 08/10/19 15:00 Intake & Output 08/09/19 08/10/19 08/10/19 18:59 06:59 18:59 Intake Total 2522.315 2505.688 1717.755 Output Total 4000 1530 2750 Balance -1477.685 975.688 -1032.245 Weight 106.1 kg 106.8 kg Intake: IV 1262 1007 694 Amiodarone 300 mg In 275 300 Dextrose 5% in Water 250 ml @ 0.5 MG/MIN 25 mls/hr IV .Q10H [facility] Rx#: [id number] Dextrose 5% in Water 1, 450 000 ml @ 75 mls/hr IV . [id number] [facility] Rx#:[id number] Dextrose 5% in Water 100 100 ml @ 618 mls/hr IV .Q10M ONE with Amiodarone 150 mg Rx#:[id number] Piperacillin-Tazobactam 3 175 25 100 .375 gm In Sodium Chloride 0.9% 100 ml @ 25 mls/hr IVPB Q8HR [facility] Rx# :[id number] Pressure bag 72 72 54 Sodium Chloride 0.9% 1, 140 110 90 000 ml @ 10 mls/hr IV . Q24H [facility] Rx#:[id number] Vancomycin 1,750 mg In 500 500 Sodium Chloride 0.9% 500 ml 500 ml @ 167 mls/hr IVPB Q12H [facility] Rx#: [id number] Intake, IV Titration 250.315 160.688 95.755 Amount Amiodarone 300 mg In 250 Dextrose 5% in Water 250 ml @ 0.5 MG/MIN 25 mls/hr IV .Q10H [facility] Rx#: [id number] Heparin Sod,Pork in 0.45% 0.315 160.688 95.755 NaCl 25,000 unit In 0.45 % NaCl 1 250ml.bag @ 12 UNITS/KG/HR 12.732 mls/hr IV .[id number] [facility] Rx#: [id number] Tube Feeding 880 1038 568 Other 130 300 360 Output: Urine 4000 1530 2750 Other: Voiding Method Indwelling Catheter Indwelling Catheter Indwelling Catheter ABP, PAP, CO, CI - Last Documented Arterial Blood Pressure 169/80 - Exam PHYSICAL EXAMINATION: GENERAL: Patient is intubated sedated and vented to settings as mentioned above patient is a FiO2 of 60% PEEP of 15 pedal volume of 450 set up respiratory rate of 28 assist-control ventilation. ABGs hypoxic hypercapnic respiratory failure with pH of 7.17 pCO2 66 by mouth to 45 bicarbonate 19 HEENT: Pupils are round and equally reacting to light. EOMI. No scleral icterus. No conjunctival pallor. Normocephalic, atraumatic. No pharyngeal erythema. No thyromegaly. CARDIOVASCULAR: S1 and S2 present. No murmurs, rubs, or gallops. PULMONARY: Chest is clear to auscultation, no wheezing or crackles. ABDOMEN: Soft, nontender, nondistended, normoactive bowel sounds. No palpable organomegaly. MUSCULOSKELETAL: No joint swelling or deformity. EXTREMITIES: No cyanosis, clubbing, or pedal edema. NEUROLOGICAL: Gross neurological examination did not reveal any focal deficits. SKIN: No rashes. - Labs CBC & Chem 7: 08/10/19 04:30 08/10/19 04:30 Labs: Abnormal Lab Results - Last 24 Hours (Table) 08/09/19 08/09/19 08/09/19 Range/Units 17:53 23:28 23:56 WBC (3.8-10.6) k/uL RDW (11.5-15.5) % Neutrophils # (1.3-7.7) k/uL Monocytes # (0-1.0) k/uL APTT 30.6 H (22.0-30.0) sec ABG pH (7.35-7.45) ABG pO2 (83-108) mmHg ABG HCO3 (21-25) mmol/L ABG Total CO2 (19-24) mmol/L ABG O2 Saturation (94-97) % Sodium (137-145) mmol/L Chloride (98-107) mmol/L BUN (9-20) mg/dL Creatinine (0.66-1.25) mg/dL Glucose (74-99) mg/dL POC Glucose (mg/dL) 261 H 206 H (75-99) mg/dL Calcium (8.4-10.2) mg/dL AST (17-59) U/L ALT (4-49) U/L Ammonia (<30) umol/L Total Protein (6.3-8.2) g/dL Albumin (3.5-5.0) g/dL 08/10/19 08/10/19 08/10/19 Range/Units 04:29 04:30 04:30 WBC 27.3 H (3.8-10.6) k/uL RDW 17.2 H (11.5-15.5) % Neutrophils # 23.9 H (1.3-7.7) k/uL Monocytes # 1.4 H (0-1.0) k/uL APTT (22.0-30.0) sec ABG pH 7.53 H (7.35-7.45) ABG pO2 63 L (83-108) mmHg ABG HCO3 33 H (21-25) mmol/L ABG Total CO2 34 H (19-24) mmol/L ABG O2 Saturation 91.0 L (94-97) % Sodium 149 H (137-145) mmol/L Chloride 114 H (98-107) mmol/L BUN 54 H (9-20) mg/dL Creatinine 0.62 L (0.66-1.25) mg/dL Glucose 177 H (74-99) mg/dL POC Glucose (mg/dL) (75-99) mg/dL Calcium 7.5 L (8.4-10.2) mg/dL AST (17-59) U/L ALT (4-49) U/L Ammonia (<30) umol/L Total Protein (6.3-8.2) g/dL Albumin (3.5-5.0) g/dL 08/10/19 08/10/19 08/10/19 Range/Units 06:05 06:33 09:16 WBC (3.8-10.6) k/uL RDW (11.5-15.5) % Neutrophils # (1.3-7.7) k/uL Monocytes # (0-1.0) k/uL APTT 33.0 H (22.0-30.0) sec ABG pH (7.35-7.45) ABG pO2 (83-108) mmHg ABG HCO3 (21-25) mmol/L ABG Total CO2 (19-24) mmol/L ABG O2 Saturation (94-97) % Sodium (137-145) mmol/L Chloride (98-107) mmol/L BUN (9-20) mg/dL Creatinine (0.66-1.25) mg/dL Glucose (74-99) mg/dL POC Glucose (mg/dL) 156 H (75-99) mg/dL Calcium (8.4-10.2) mg/dL AST (17-59) U/L ALT (4-49) U/L Ammonia 83 H (<30) umol/L Total Protein (6.3-8.2) g/dL Albumin (3.5-5.0) g/dL 08/10/19 08/10/19 Range/Units 09:16 11:58 WBC (3.8-10.6) k/uL RDW (11.5-15.5) % Neutrophils # (1.3-7.7) k/uL Monocytes # (0-1.0) k/uL APTT (22.0-30.0) sec ABG pH (7.35-7.45) ABG pO2 (83-108) mmHg ABG HCO3 (21-25) mmol/L ABG Total CO2 (19-24) mmol/L ABG O2 Saturation (94-97) % Sodium (137-145) mmol/L Chloride (98-107) mmol/L BUN (9-20) mg/dL Creatinine (0.66-1.25) mg/dL Glucose (74-99) mg/dL POC Glucose (mg/dL) 177 H (75-99) mg/dL Calcium (8.4-10.2) mg/dL AST 95 H (17-59) U/L ALT 586 H (4-49) U/L Ammonia (<30) umol/L Total Protein 5.7 L (6.3-8.2) g/dL Albumin 2.8 L (3.5-5.0) g/dL Microbiology - Last 24 Hours (Table) 08/09/19 11:31 Blood Culture - Preliminary Blood No Growth after 24 hours 08/05/19 21:56 Gram Stain - Final Sputum Sputum Culture - Final Staphylococcus aureus Escherichia coli [place] sp,not albicans/galbr 08/07/19 05:10 Blood Culture Gram Stain - Final Blood Blood Culture - Final Staphylococcus aureus Assessment and Plan Plan: Acute hypoxic and hypercapnic respiratory failure probably secondary to sepsis from a staphylococcal bacteremia possible COPD exacerbation. Continue ventilator support with the above-mentioned vent settings continue with inhalational treatments patient is on systemic steroids mostly for covid 19. His blood cultures remained positive persistent bacteremia with MSSA. Patient is presently on vancomycin, rifaximin, Zosyn -Sepsis shock shock resolved probably secondary to staphylococcal pneumonia, patient has persistent bacteremia with the MRSA need to BRENDA to evaluate for endocarditis. Patient can use to have fever -Possible anoxic brain injury and severe encephalopathy from sepsis. Patient has worsening leukocytosis barely arousable in spite of discontinuation of sedation for more than 48 hours. -Acute renal failure possibly acute tubular necrosis patient creatinine improved with IV fluids -Lactic acidosis secondary to sepsis Hypernatremia and hyperchloremia secondary to normal saline which was 6 to switched to D5 normal saline -Elevated blood pressure uncontrolled accident and hypertension probably related to pain patient is not on any narcotics patient is receiving Motrin through NG tube. Patient was started on daily pain drip -Hyperlipidemia next and heparin hypertension -Elevated liver enzymes probably secondary to shock liver. -Hepatic encephalopathy: Ammonia level is bit better now. -Troponin leak secondary to myocardial injury from sepsis. -Severe pulmonary hypertension
[2019-08-10 18:31] LABS: Glucose,Whole Blood 195 mg/dL (75-99)
[2019-08-10] MEDS: VANCOMYCIN 2,000 MG in SODIUM CHLORIDE 0.9% 500 ML 500 ML IVPB SCH (18:48)
[2019-08-10 23:55] LABS: Glucose,Whole Blood 223 mg/dL (75-99)
--- NOTE | 2019-08-11 | PN ---
PROGRESS NOTE DATE OF SERVICE: 08/10/2019 REASON FOR FOLLOWUP: MSSA bacteremia and aspiration pneumonia. INTERVAL HISTORY: The patient has been still running a fever 102 pounds degrees Fahrenheit. The patient is hemodynamically stable, not on any pressor support. FiO2 is currently 50%. No significant purulent secretions through the ET. Did have diarrhea but no worsening output. PHYSICAL EXAMINATION: Blood pressure is 153/74 with a pulse of 82, temperature 98.4. He is 93% on 50% FiO2. General description is a middle-aged male intubated on the vent. Respiratory system: Unlabored breathing, decreased breath sounds at the base with no wheeze. Heart S1, S2. Regular rate and rhythm. Abdomen soft, no tenderness. LABS: Hemoglobin is 14.3, white count 27.3, BUN of 54, creatinine 0.62. Blood culture 08/08 so far negative. DIAGNOSTIC IMPRESSION AND PLAN: Patient with MSSA bacteremia in this patient who did have acute respiratory failure with a component of aspiration pneumonia, sputum also showing E coli. The patient is covered with vancomycin and Zosyn. Kidney function is currently stable. Persistent fever could be indicative of possible central origin and will monitor closely. Continue supportive care. MMODL / IJN: [id number] /
[2019-08-11] MEDS: CLEVIDIPINE BUTYRATE 25 MG in EMPTY BAG 1 BAG IV SCH (02:27)
[2019-08-11 05:10] LABS: ABG Base Excess 8.2 mmol/L; ABG HCO3 31 mmol/L (21-25); ABG Oxygen Saturation 92.4 % (94-97); ABG PCO2 39 mmHg (35-45); ABG PH 7.52 (7.35-7.45); ABG PO2 67 mmHg (83-108); ABG TCO2 32 mmol/L (19-24)
[2019-08-11 05:14] LABS: Anisocytosis Slight; Basophils # (A) 0.3 k/uL (0-0.2); Basophils % (A) 1 %; Eosinophils # (A) 0.1 k/uL (0-0.7); Eosinophils % (A) 0 %; HCT 42.2 % (39.0-53.0); HGB 13.5 gm/dL (13.0-17.5); Hypochromasia Slight; Lymphocytes # (A) 1.6 k/uL (1.0-4.8); Lymphocytes % (A) 6 %; MCHC 32.1 g/dL (31.0-37.0); MCV 84.3 fL (80.0-100.0); Mean Platelet Volume 7.8; Monocytes % (A) 4 %; Neutrophils # (A) 23.7 k/uL (1.3-7.7); Neutrophils % (A) 87 %; Platelet Count 170 k/uL (150-450); RDW 17.1 % (11.5-15.5); WBC 27.4 k/uL (3.8-10.6)
[2019-08-11 05:23] LABS: ALT 307 U/L (4-49); AST 52 U/L (17-59); African American GFR (CKD) >90 (>60 ml/min/1.73 sqM); Albumin 2.3 g/dL (3.5-5.0); Alkaline Phosphatase 82 U/L (38-126); Anion Gap 4 mmol/L; Blood Urea Nitrogen 46 mg/dL (9-20); Calcium 6.9 mg/dL (8.4-10.2); Carbon Dioxide 32 mmol/L (22-30); Chloride 109 mmol/L (98-107); Glucose 239 mg/dL (74-99); Non-African American GFR(CKD) >90 (>60 ml/min/1.73 sqM); Potassium 3.3 mmol/L (3.5-5.1); Sodium 145 mmol/L (137-145); Total Bilirubin 0.5 mg/dL (0.2-1.3); Total Protein 4.8 g/dL (6.3-8.2)
[2019-08-11 05:29] LABS: Glucose,Whole Blood 212 mg/dL (75-99)
[2019-08-11] MEDS: VANCOMYCIN 2,000 MG in SODIUM CHLORIDE 0.9% 500 ML 500 ML IVPB SCH ×2 (05:43→18:14)
[2019-08-11] MEDS: INSULIN ASPART (NovoLOG) 100 UNIT/ML VIAL SQ SCH ×4 (05:43→23:36)
[2019-08-11] MEDS ORDERED: POTASSIUM CHLORIDE ER 20 MEQ TAB.ER PO SCH (06:00)
[2019-08-11] MEDS ORDERED: Potassium Replacement Protocol 1 EACH MISC MISCELLANE PRN (06:04)
--- NOTE | 2019-08-11 06:10 | XR ---
EXAMINATION TYPE: XR chest 1V portable DATE OF EXAM: 08/11/2019 HISTORY: Tube placement. REFERENCE: Previous study dated 08/10/2019. FINDINGS: There is a left shoulder arthroplasty in place. The patient remains intubated. The patient is ET tube, NG tube and right internal jugular catheter re main in place, unchanged in appearance. Continues to be bilateral basilar airspace disease. There are bilateral effusions. Heart size is obsc ured. There is mild vascular congestion. IMPRESSION: NO SIGNIFICANT INTERVAL CHANGE IN THE APPEARANCE OF THE CHEST.
[2019-08-11] MEDS: POTASSIUM BICARBONATE/CIT AC 20 MEQ TABLET.EFF NG-TUBE SCH ×2 (06:17→09:21)
[2019-08-11] MEDS: PIPERACILLIN-TAZOBACTAM 3.375 GM in SODIUM CHLORIDE 0.9% 100 ML IVPB SCH ×3 (09:21→23:26)
[2019-08-11] MEDS: DIVALPROEX 250 MG TABLET.DR PO SCH ×2 (09:22→20:19)
[2019-08-11] MEDS: AMIODARONE 200 MG TAB PO SCH ×2 (09:22→20:18)
[2019-08-11] MEDS: METOPROLOL TARTRATE 50 MG TAB PO SCH ×3 (09:22→23:04)
[2019-08-11] MEDS: RIFAXIMIN 550 MG TABLET PO SCH ×2 (09:23→20:19)
[2019-08-11] MEDS: PANTOPRAZOLE 40 MG/10 ML VIAL IV SCH (09:23)
[2019-08-11] MEDS: FUROSEMIDE 10 MG/ML 4 ML VIAL IV SCH (09:23)
[2019-08-11] MEDS: CHLORHEXIDINE GLUCONATE 15 ML CUP MUCOUS MEM SCH ×2 (09:23→20:18)
[2019-08-11] MEDS: ASPIRIN 81 MG PO SCH (09:23)
--- NOTE | 2019-08-11 11:39 | P.PN ---
Subjective Progress Note Date: 08/11/19 62-year-old male patient who was brought into the emergency department today unresponsive and profoundly hypoxic. The patient was in acute hypoxic respiratory failure. Initial pulse ox was in the mid 30s. Apparently he was not also communicating or responding. He was apparently awake and alert on the morning prior to him coming to the hospital according to the landlord. The landlord noted that the patient was appearing ill and called EMS. Upon EMS arrival, the patient was found to be obtunded. He had a fever of 10 1F. He was found to be hypoxic, brought into the emergency room he was found to be tachycardic and hypoxic with was placed on supplemental oxygen without any benefit and ultimately the patient was intubated and placed on a mechanical ventilator. COVID 19 is suspected. The patient was placed on the opposite isolation. The patient had the appropriate nasal swabs. Chest x-ray showed bilateral airspace disease consistent with pneumonia in addition to interstitial pneumonitis. ET tube was around 3.7 cm above the mario. NG tube was extending into the left abdomen. There was a right upper lobe consolidation noted and a tiny right-sided pleural effusion. No evidence of any pneumothorax. There was bilateral infiltrates and coarse interstitium and a prosthetic left shoulder. The patient has a white cell count of 4.9. He had some lymphopenia. His platelet counts is no within normal limits. The blood gases was done on 100% nonrebreather showed a pH of 7.17 with a pCO2 of 66 and pO2 of 45. The patient also had an acute kidney injury with a creatinine of 1.65. Epigastric level was at 3.1. The ALT is at 1106 with an ammonia level of 146 and a bilirubin of 0.5 and an albumin of 4.1. The serum alcohol was negative and the patient has negative salicylates and acetaminophen. Influenza screen has been negative. Covid 19 analysis still pending for now. This patient lives with a sister in a house and he collects Social Security disability. He has had issues with mental health and the patient has been dealing with bipolar disorder and chronic insomnia of many years duration. He has also chronic anxiety disorder. No history of any previous suicidal ideation or intent. No delusions or hallucinations based on recent psychiatric evaluation that was in the hospital. On today's evaluation of 62,020 the patient is being seen in follow-up in the in tensive care unit. Noted the patient is intubated on a mechanical ventilator and is suspected to have Covid 19. He is afebrile on today's evaluation. He remains on a mechanical ventilator. He is sedated with propofol running at 20 mg per KG per minute. He was given a total of 5 L of IV fluid as the patient was hypotensive and currently the fluid is running at 75 mL an hour of normal saline. He remains on norepinephrine infusion at 0.08 mg per KG per minute. He remains on a mechanical ventilator. His assist-control mode at the rate of 28 with a tidal volume of 450 and FiO2 of 60% with a PEEP of 15. His blood gases showed a pH of 7.12 with a pCO2 of 58 and pO2 of 187. This was done and FiO2 of 100%. Otherwise, the patient has blood abnormalities it is consistent with Covid 19 infection. He has a rhabdomyolysis with a CPK level of 6114. He has also transaminitis with a AST of 3354, ALT of 1962, and his LDH level is at 8367. His creatinine is at 1.2, which is up from a baseline of 1.65 with fluid resuscitation. His current minute ventilation is 13 L. I made recommendations to keep the same vent setting. Based on the blood on of some non-anion gap metabolic acidosis, and with recommendations to start the patient on bicarb infusion and addition to 2 A of IV bicarb pushes. He was having temperatures throughout the night with temperature maximum 100.8. Current temperature is 99.6. He'll be started on enteral feeding for nutritional support. Covid 19 evaluation is still pending for now. On today's evaluation of 08/07/2019 and seeing this patient for a follow-up. The patient has sedated with propofol. He was given a sedation holiday yesterday and his neurologic exam was suboptimal as the patient did not show adequate neurologic recovery. Based on that, a CAT scan of the brain was done and the CAT scan of the brain was negative for any acute abnormalities. Noted the patient was profoundly hypoxic and at time of admission to the hospital and there is a suspicion for hypoxic encephalopathy. Contrary to my expectations, the patient checked negative for Covid 19 infection. The blood culture came back positive for staph aureus. Currently is on a combination of cefepime and vancomycin. The patient was resuscitated with more than 5 L of normal saline and the patient is also requiring some pressors for hemodynamic support and levo fed was started and 8 on was placed on hold as of 5:00 this morning. Urine output in the order of 40 mL an hour. In terms of sedation, the patient is on propofol at 20 g per KG per minute. Note that the patient had issues with a significant leak around his orotracheal tube. This was replaced yesterday by [employer] without any major difficulties. This morning, he remains on a VC plus mode with a rate of 28 and a tidal volume of 450 and a nighttime of 1 second with a PEEP of 15 with an FiO2 of 50%. Blood gases from today showed a pH of 7.36 with a pCO2 of 37 and pO2 of 92. Chest x-ray showing diffuse bilateral pulmonary infiltrates. His cardiac rhythm is still in atrial fibrillation. He is on amiodarone maintenance at 0.5 mg per minute. The patient has a creatinine of 1.5. There is still evidence of transaminitis with elevation of the AST and ALP and both are improving. LDH level is elevated at 5738. CPKs improving at 2431. C-reactive protein is elevated at 622. Note that the LDH is on the decline, CPKs on the decline on today's evaluation. LFTs are also improving. On 08/08/2019 on seeing this patient for a follow-up. The patient has been off sedation since yesterday. I am not seeing an adequate neurologic recovery in this patient. There may be a component of hepatic encephalopathy in the patient's went into shock liver. Nevertheless, his ammonia is dropping. He is on lactulose. He is producing adequate amount of bowel activity. He is undergoing training the painful stimulation. Pupils are about 3 mm in size and there is C-reactive to light. There is a very weak cough and a gag. Absolutely no response to deep painful stimulation. No seizure activity has been noted. Neurology will be consulted on the case. EEG will be ordered. Meanwhile, the patient is clearly becoming a case of possible aspiration staphylococcal pneumonia. His blood culture came back positive for staph aureus. His sputum positive for staph. He also has gram-negative bacillus in his sputum which bucket turner to be E. coli. For now, the cultures and the blood to be MSSA. The patient was on examination of cefepime and vancomycin. I dropped the cefepime and I utilized Zosyn to give him better anaerobic coverage as the patient clearly has a history of aspiration. Meanwhile, the Covid test came back negative. The patient remains on a mechanical ventilator. On today's chest x-ray there is worsening over the bilateral pulmonary infiltrates worse on the right. ET tube remains in a good location. The patient remains on an assist-control mode at the rate of 18 with a tidal volume of 450 and FiO2 of 50% with a PEEP of 10. Blood gas showed a pH of 7.46 with a pCO2 of 34 and pO2 of 103. CVP is ranging between 12 and 14. He remains in atrial fibrillation. He is on amiodarone drip maintenance at 0.5 mg per minute. He is also on normal saline at the rate of 75 mL an hour. His age fibrillation is under better control and he is on no pressors. He can tolerate beta blockers. He is having low-grade fever still. The white cell count is up to 22. The shock liver is improving including the AST and ALP level. The LDH level was elevated. The CPKs also improving is down to 2431. His ammonia level is down to 85. His coagulation profile is within normal limits. On 08/09/2019 the patient is being seen in follow-up in intensive care unit. Unfortunately, the patient has been off sedation for more than 24 hours and the patient is still not showing significant neurologic recovery. The patient is not following any specific commands. In fact he is not even withdrawing to deep painful stimulation. No seizure activity has been noted. EEG was done and showed diffuse slowing and it was consistent with severe encephalopathy which could be toxic metabolic encephalopathy versus hypoxic encephalopathy. The patient will be kept off sedation. Meanwhile, the ammonia level is progressively coming down and is down to 58. He continues to have a week cough and gag reflex. The patient remains in atrial fibrillation. The patient remained on assist control mode of ventilation. He is on VC plus mode at the rate of 28 with a tidal volume of 450 and FiO2 of 50% with a PEEP of 10. The blood gases from today shows a component of respiratory alkalosis with a pH of 7.5 with a pCO2 of 36 and pO2 of 71. The white cell count of 23. The patient has developed some hyperchloremic hypernatremia in the sodium level is up to 147 with a chloride of 114. Renal function is stable. The patient is receiving vital high protein at the rate of 52 mL an hour. In terms of atrial fibrillation, I had utilized back the amiodarone drip at 0.5 mg per minute and the patient is also on metoprolol 50 mg by mouth 3 times a day. Heart rate is still slightly tachycardic and will continue the same regimen for now. The patient was given a dose of Lasix yesterday. The patient Is producing better urine output for now. His weight is still up. The CPKs down to 395. The AST is down to 1000. ALT is down to 58. LDH is down to 03/10/2007. Calcium level at 7.1. No other significant issues otherwise over the past 24 hours. He remains on a combination of Zosyn and vancomycin. The blood culture and the sputum culture was positive for MSSA. The sputum culture was positive for E. coli. The chest x-ray still showing rather consolidation worse on the right compared to the left. ET tube remains in a good location. On 08/10/2019 the patient has been approximately 72 hours of sedation. Unfortunately, we do not see any significant neurologic recovery the patient's condition. He is still not responding to any verbal or deep painful stimulation. He remains completely unresponsive. On this morning, I have a mild assist-control mode of ventilation with a VC plus mode at a tidal volume of 450 FiO2 of 50% with a PEEP of 10 and the respiratory rate of 24. His blood gases showed a component of respiratory alkalosis. His pH is at 7.53 with a pCO2 of 39 pO2 of 63. Chest x-ray still showing bilateral pneumonia bilateral airspace disease worse on the right along with cardiomegaly and bilateral pleural effusions. ET tube is in a good location. The patient's white cell count is at 27. The patient is still having episodes of fever. Most recent blood culture from 2 days ago was positive for MSSA and MSSA was also cultured and his lungs and it was cultured also E. coli in his lungs. We are still thinking that this was an aspiration pneumonia. Shock liver, his LFTs are nearly normalized, severe has also dropped and ammonia level is being monitored is still elevated at 83. The lactulose was held as the patient was having liquidy stool and the patient had become also hyperchloremic and the sodium level is up to 149. He is receiving free water supplements with NG for now. He is also on vital high protein. In terms of his atrial fibrillation, rate is under better control with a combination of amiodarone maintenance of 0.5 mg per minute and Cardizem drip at 10 mg an hour. The patient is also on IV heparin. The active issue for now is his altered mentation. On 08/11/2019, I'm seeing the patient for a follow-up in intensive care unit. His been off sedation for the past 92 hours. On today's evaluation that is some slight grimacing upon very deep painful stimulation and upon pinching on his upper chest. For the most part he remains unresponsive. No seizure activity. Shock liver has recovered. Ammonia level is on the decline. I started the patient on rifixamine 550 mg by mouth twice a day yesterday and ammonia level is down to 45. I suspect a component of hypoxic encephalopathy although the possibility of metabolic encephalopathy cannot be completely ruled out. He is on a mechanical ventilator. No change in the vent setting. No changes in the x-ray findings as the patient has extensive airspace disease bilaterally more so on the right lower lobe. On the ventilator, the patient is on a VC plus mode with a tidal volume of 450 and FiO2 of 50% with a PEEP of 10 and tidal volume of 450 with a rate of 16. The patient's blood gas showed a pH of 7.52 with a pCO2 of 39 and pO2 of 67. On and off he was still having fever yesterday. Repeat blood cultures were sent. He remains on examination Zosyn and vancomycin. He is tolerating his enteral feeding for nutritional support. Is on IV heparin drip regarding his atrial fibrillation. He remains on amiodarone drip and oral metoprolol for rate control. He is also started on Cleviprex which is running at 2 mg an hour for tighter blood pressure control. The active issue remains his altered mentation with a possibility of him having hypoxic encephalopathy with the details as mentioned above. Objective - Vital Signs Vital signs: Vital Signs Temp 98.9 F 08/11/19 08:00 Pulse 81 08/11/19 10:00 Resp 25 H 08/11/19 10:00 BP 143/79 08/11/19 10:00 Pulse Ox 95 08/11/19 10:00 Intake & Output 08/10/19 08/11/19 08/11/19 18:59 06:59 18:59 Intake Total 2463.788 3337.845 1115 Output Total 3000 1300 650 Balance -930.099 1816.845 465 Weight 107.5 kg Intake: IV 1057 1850 631 Dextrose 5% in Water 1, 675 900 300 000 ml @ 75 mls/hr IV . [id number] [facility] Rx#:[id number] Piperacillin-Tazobactam 3 200 100 100 .375 gm In Sodium Chloride 0.9% 100 ml @ 25 mls/hr IVPB Q8HR [facility] Rx# :[id number] Pressure bag 72 72 24 Sodium Chloride 0.9% 1, 110 110 40 000 ml @ 10 mls/hr IV . Q24H [facility] Rx#:[id number] Vancomycin 1,750 mg In 668 167 Sodium Chloride 0.9% 500 ml 500 ml @ 167 mls/hr IVPB Q12H [facility] Rx#: [id number] Intake, IV Titration 105.788 251.845 Amount Clevidipine Butyrate 25 10.033 97.6 mg In Empty Bag 1 bag @ 1 MG/HR 2 mls/hr IV .Q24H [facility] Rx#:[id number] Heparin Sod,Pork in 0.45% 95.755 154.245 NaCl 25,000 unit In 0.45 % NaCl 1 250ml.bag @ 12 UNITS/KG/HR 12.732 mls/hr IV .[id number] [facility] Rx#: [id number] Tube Feeding 781 1136 284 Other 520 100 200 Output: Urine 3000 1300 650 Other: Voiding Method Indwelling Catheter Indwelling Catheter Indwelling Catheter ABP, PAP, CO, CI - Last Documented Arterial Blood Pressure 161/72 - Exam Gen. appearance, the patient remains off sedation, nonacute distress intubated on a mechanical ventilator. Orogastric and orotracheal tube are both in place Head exam was generally normal. There was no scleral icterus or corneal arcus. Mucous membranes were moist. Neck was supple and without jugular venous distension, thyromegaly, or carotid bruits. Carotids were easily palpable bilaterally. There was no adenopathy. Lungs were clear to auscultation and percussion, and with normal diaphragmatic excursion. No wheezes or rales were noted. Cardiac exam revealed the PMI to be normally situated and sized. The rhythm was regular and no extrasystoles were noted during several minutes of auscultation. The first and second heart sounds were normal and physiologic splitting of the second heart sound was noted. There were no murmurs, rubs, clicks, or gallops. Abdominal exam revealed normal bowel sounds. The abdomen was soft, non-tender, and without masses, organomegaly, or appreciable enlargement of the abdominal aorta. Examination of the extremities revealed easily palpable radial, femoral and pedal pulses. There was no cyanosis, clubbing or edema. Examination of the skin revealed no evidence of significant rashes, suspicious appearing nevi or other concerning lesions. Neurologically the patient is unresponsive. Not following any commands. Not withdrawing to any painful stimulation. Pupils are 3 mm in size and they're sluggish and reactive to light. No nystagmus. No clonus. DTRs are +1 and symmetric in all 4 extremities. The patient is not withdrawing to any painful s timulation. Does not follow any verbal stimulation. The cough reflex is weak. The gag reflex is also weak. The patient has been off sedation for now.. On today's evaluation, I noted some minimal amount of grimacing upon deep painful stimulation. - Labs CBC & Chem 7: 08/11/19 04:50 08/11/19 04:50 Labs: Abnormal Lab Results - Last 24 Hours (Table) 08/10/19 08/10/19 08/10/19 Range/Units 09:16 11:58 18:28 WBC (3.8-10.6) k/uL RDW (11.5-15.5) % Neutrophils # (1.3-7.7) k/uL Basophils # (0-0.2) k/uL APTT (22.0-30.0) sec ABG pH (7.35-7.45) ABG pO2 (83-108) mmHg ABG HCO3 (21-25) mmol/L ABG Total CO2 (19-24) mmol/L ABG O2 Saturation (94-97) % Potassium (3.5-5.1) mmol/L Chloride (98-107) mmol/L Carbon Dioxide (22-30) mmol/L BUN (9-20) mg/dL Creatinine (0.66-1.25) mg/dL Glucose (74-99) mg/dL POC Glucose (mg/dL) 177 H 195 H (75-99) mg/dL Calcium (8.4-10.2) mg/dL ALT (4-49) U/L Ammonia (<30) umol/L Total Protein (6.3-8.2) g/dL Albumin (3.5-5.0) g/dL Procalcitonin 1.34 H (0.02-0.09) ng/mL 08/10/19 08/10/19 08/11/19 Range/Units 18:30 23:53 04:50 WBC 27.4 H (3.8-10.6) k/uL RDW 17.1 H (11.5-15.5) % Neutrophils # 23.7 H (1.3-7.7) k/uL Basophils # 0.3 H (0-0.2) k/uL APTT 48.9 H (22.0-30.0) sec ABG pH (7.35-7.45) ABG pO2 (83-108) mmHg ABG HCO3 (21-25) mmol/L ABG Total CO2 (19-24) mmol/L ABG O2 Saturation (94-97) % Potassium (3.5-5.1) mmol/L Chloride (98-107) mmol/L Carbon Dioxide (22-30) mmol/L BUN (9-20) mg/dL Creatinine (0.66-1.25) mg/dL Glucose (74-99) mg/dL POC Glucose (mg/dL) 223 H (75-99) mg/dL Calcium (8.4-10.2) mg/dL ALT (4-49) U/L Ammonia (<30) umol/L Total Protein (6.3-8.2) g/dL Albumin (3.5-5.0) g/dL Procalcitonin (0.02-0.09) ng/mL 08/11/19 08/11/19 08/11/19 Range/Units 04:50 04:50 05:04 WBC (3.8-10.6) k/uL RDW (11.5-15.5) % Neutrophils # (1.3-7.7) k/uL Basophils # (0-0.2) k/uL APTT 51.6 H (22.0-30.0) sec ABG pH 7.52 H (7.35-7.45) ABG pO2 67 L (83-108) mmHg ABG HCO3 31 H (21-25) mmol/L ABG Total CO2 32 H (19-24) mmol/L ABG O2 Saturation 92.4 L (94-97) % Potassium 3.3 L (3.5-5.1) mmol/L Chloride 109 H (98-107) mmol/L Carbon Dioxide 32 H (22-30) mmol/L BUN 46 H (9-20) mg/dL Creatinine 0.52 L (0.66-1.25) mg/dL Glucose 239 H (74-99) mg/dL POC Glucose (mg/dL) (75-99) mg/dL Calcium 6.9 L (8.4-10.2) mg/dL ALT 307 H (4-49) U/L Ammonia (<30) umol/L Total Protein 4.8 L (6.3-8.2) g/dL Albumin 2.3 L (3.5-5.0) g/dL Procalcitonin (0.02-0.09) ng/mL 08/11/19 08/11/19 Range/Units 05:27 08:07 WBC (3.8-10.6) k/uL RDW (11.5-15.5) % Neutrophils # (1.3-7.7) k/uL Basophils # (0-0.2) k/uL APTT (22.0-30.0) sec ABG pH (7.35-7.45) ABG pO2 (83-108) mmHg ABG HCO3 (21-25) mmol/L ABG Total CO2 (19-24) mmol/L ABG O2 Saturation (94-97) % Potassium (3.5-5.1) mmol/L Chloride (98-107) mmol/L Carbon Dioxide (22-30) mmol/L BUN (9-20) mg/dL Creatinine (0.66-1.25) mg/dL Glucose (74-99) mg/dL POC Glucose (mg/dL) 212 H (75-99) mg/dL Calcium (8.4-10.2) mg/dL ALT (4-49) U/L Ammonia 45 H (<30) umol/L Total Protein (6.3-8.2) g/dL Albumin (3.5-5.0) g/dL Procalcitonin (0.02-0.09) ng/mL Microbiology - Last 24 Hours (Table) 08/10/19 09:08 Blood Culture - Preliminary Blood No Growth after 24 hours 08/10/19 09:18 Blood Culture - Preliminary Blood No Growth after 24 hours 08/09/19 11:31 Blood Culture - Preliminary Blood No Growth after 24 hours 08/05/19 21:56 Gram Stain - Final Sputum Sputum Culture - Final Staphylococcus aureus Escherichia coli [place] sp,not albicans/galbr Assessment and Plan Plan: 1 acute hypoxic/hypercapnic respiratory failure with development of diffuse bilateral pulmonary for placing consolidation right more than left. It's more obvious currently the patient has a bacterial infectious cause underlying his respiratory failure which probably is related to an aspiration pneumonia. Sputum is positive for E. coli and staph aureus which may bucket turner to be an MSSA. I have him on a combination of Zosyn and vancomycin for now. Covid 19 testing came back negative. On today's evaluation the blood gas shows a component of respiratory alkalosis and the necessary ventilator changes will be done today. Chest x-ray was noted. The patient is still having bilateral consolidation and airspace disease in the lung bases right more than left. There is also cardiomegaly. The patient remains on a combination of Zosyn and vancomycin. Still febrile. Repeat culture will be obtained. The repeat culture are still negative. Nevertheless, the patient is still having on and off febrile episodes last temperature spike was yesterday. Currently is afebrile. Hemodynamically stable and is not requiring any pressors. His pro- calcitonin level has dropped down to 1.34. 2 acute ventilator-dependent respiratory failure secondary to above, see above discussion, vent settings were noted, chest x-ray was noted,And there is no significant changes on today's chest x-ray compared to yesterday. 3 acute febrile illness secondary to above, still having low-grade fever, rule out persistent bacteremia. Awaiting repeat blood cultures. 4 acute kidney injury, recovered 5 acute lactic acidosis, improved 6 unresponsiveness and the patient continues to be unresponsive despite being off sedation for more than 92 hours. There is concern towards hypoxic encephalopathy. Neurologist on the case. EEG shows diffuse encephalopathy could be essentially metabolic versus hypoxic encephalopathy. CAT scan of the brain was done showed no acute abnormalities. There is a possibility of him having metabolic/hepatic encephalopathy related to shock liver. Ammonia level is down to 45 and will going to monitor his mental status. 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 14 acute leukocytosis 15 staph aureus septicemia, MSSA 16 hyperchloremic hypernatremia, secondary to diarrhea and intravascular volume depletion, Improved with D5 water infusion. Plan Continue same vent setting for today, no vent changes for today We'll give the patient D5 water at the rate of 75 mL an hour in addition to free water flushes through the NG Utilize Zosyn and vancomycin as the patient has had possibly some aspiration and Zosyn gives us a better anaerobic coverage. He has also good coverage regarding MSSA and E. coli. The repeat blood cultures still pending and this was obtained yesterday both from the central line and peripheral steak regarding his ongoing episodes of fever. Continue amiodarone drip for rate control at a rate of 0.5 mg per minute. This is being given in conjunction with metoprolol. Utilize metoprolol at a dose of 50 mg twice a day for rate control IV heparin regarding chronic atrial fibrillation. Liver function tests and CPKs are all improving Ammonia level is improving The patient is on Xifaxan for hepatic encephalopathy neurology consultation EEG was noted Enteral feeding for nutritional support We'll continue to follow. Condition is critical and this evaluation was done a than 30 minutes. the prognosis poor obviously specially if the patient turns out to be having a component of hypoxic encephalopathy and neurologic function does not recover. Time with Patient: Greater than 30
[2019-08-11] MEDS: HEPARIN SOD,PORK IN 0.45% NACL 25,000 UNIT in 0.45% NACL 1 250ML.BAG IV SCH (11:44)
[2019-08-11 13:00] LABS: Glucose,Whole Blood 176 mg/dL (75-99)
[2019-08-11] MEDS: SODIUM CHLORIDE 0.9% 1,000 ML IV SCH (13:13)
--- NOTE | 2019-08-11 14:23 | P.PN ---
Subjective Patient is admitted for acute hypoxic and hypercapnic respiratory failure which was believed to be secondary to Covid 19 pneumonia patient is presently on FiO2 of 60%. Patient does have related troponin by highly elevated be high d-dimer is of which patient is on anti-correlation dose of the Lovenox. Patient scored 19 is pending patient has chest x-ray findings consistent with the pulmonary edema or atypical pneumonia or Covid 19 pneumonia along with the significant transaminitis elevated highly elevated LDH highly elevated. Ferritin and si gnificant lymphopenia ration continues to have fever. Patient also has acute renal failure secondary to possibly acute tubular necrosis patient is on sodium bicarbonate and D5 because of hyperkalemia. 08/07/2019 Patient the white blood cell count went up to 17,000. His blood cultures are positive for staph aureus we'll repeat the blood cultures tomorrow. Patient liver enzymes are elevated because of shock liver ultrasound did not show significant abnormality. Patient had an elevated ammonia yesterday which is actually better now after lactulose, patient is off pressors. Patient remains on amiodarone. Computed tomography scan of the brain did not show any significant abnormality patient Covid 19 is negative patient remains on cefepime and vancomycin. Primary source is probably lung. Patient has fairly good urine output at 400 mL per hour on volume control ventilation set up respiratory rate of 28 total volume of 450 PEEP of 15 episode of 50% patient's hypercapnic respiratory failure improved and hypoxic respiratory failure improved patient has pH of 7.36 pCO2 of 37 08/07/2028 patient doesn't have any significant clinical improvement remains bacteremic repeat blood cultures are being obtained for today and tomorrow as well. Patient has staph aureus in the blood patient probably will need the transesophageal echocardiogram. Patient is off sedation but is not arousable yet because of which neurology is evaluating the patient and patient is getting EEG patient remains on Vanco mycin cefepime was switched to Zosyn because of concern for aspiration patient aspirin cultures are positive for staph aureus and E. coli along with the species infectious disease is following the patient as well. 08/09/2019 She is still the remains is severely encephalopathic and it and the just withdrawing from painful stimuli off sedation for about 2 days. Patient has severe toxic and metabolic encephalopathy patient is mildly alkalotic patient's present tidal volume is 450 and set up respiratory rate was Down now and patient is breathing over the ventilator and is breathing at around 24/m on an average. FiO2 of 50% PEEP of 10. Patient liver enzymes are bit better patient remains on Zosyn and vancomycin probably vancomycin can be discontinued as patient has MSSA in the blood cultures. Infectious disease is following the patient. Patient white blood cell count remains high patient eventually will need a BRENDA to rule out endocarditis, will plan on this if he has some response on the antibiotics and less encephalopathic and if there is any improvement 08/10/2019 No significant change in his clinical condition including his mental status which it has not improved at patient is hyponatremic because of IV fluids patient is on D5 water now because of hypernatremia and hyperchloremia. Patient remains in the same vent settings as as today remains bacteremic prognosis is extremely poor. Tomorrow we'll discuss with the family regarding overall goals of care. Patient is presently not on pressor support serum creatinine remains stable patient is on amiodarone for atrial fibrillation patient will need repeat blood cultures again tomorrow patient is having thick secretions from the endotracheal to. Patient is presently on Zosyn and vancomycin, rifampin was added patient was started on daily. Because of elevated blood pressure by punch box tender 09/23/2019 Independent improvement in his clinical status today daughter is awaiting evaluation by neurologist if patient remains severely encephalopathy Secondary. There is no chance of reasonable neurological recovery she wants to make him comfort care at that time. Patient remains on clevidipine. Patient last 2 blood cultures are negative. Review Of systems: Unable to obtain due to his clinical condition. All inpatient medications were reviewed and appropriate changes in these medications as dictated in the interval history and assessment and plan. Objective - Vital Signs Vital signs: Vital Signs Temp 99.3 F 08/11/19 12:00 Pulse 92 08/11/19 13:00 Resp 31 H 08/11/19 13:00 BP 135/68 08/11/19 13:00 Pulse Ox 91 L 08/11/19 13:00 Intake & Output 08/10/19 08/11/19 08/11/19 18:59 06:59 18:59 Intake Total 2463.788 3337.845 1951 Output Total 3000 1300 1450 Balance -182.186 4497.845 501 Weight 107.5 kg Intake: IV 1057 1850 904 Dextrose 5% in Water 1, 675 900 525 000 ml @ 75 mls/hr IV . [id number] [facility] Rx#:[id number] Piperacillin-Tazobactam 3 200 100 100 .375 gm In Sodium Chloride 0.9% 100 ml @ 25 mls/hr IVPB Q8HR [facility] Rx# :[id number] Pressure bag 72 72 42 Sodium Chloride 0.9% 1, 110 110 70 000 ml @ 10 mls/hr IV . Q24H [facility] Rx#:[id number] Vancomycin 1,750 mg In 668 167 Sodium Chloride 0.9% 500 ml 500 ml @ 167 mls/hr IVPB Q12H [facility] Rx#: [id number] Intake, IV Titration 105.788 251.845 250 Amount Clevidipine Butyrate 25 10.033 97.6 mg In Empty Bag 1 bag @ 1 MG/HR 2 mls/hr IV .Q24H [facility] Rx#:[id number] Heparin Sod,Pork in 0.45% 95.755 154.245 250 NaCl 25,000 unit In 0.45 % NaCl 1 250ml.bag @ 12 UNITS/KG/HR 12.732 mls/hr IV .[id number] [facility] Rx#: [id number] Tube Feeding 781 1136 497 Other 520 100 300 Output: Urine 3000 1300 1450 Other: Voiding Method Indwelling Catheter Indwelling Catheter Indwelling Catheter ABP, PAP, CO, CI - Last Documented Arterial Blood Pressure 178/72 - Exam PHYSICAL EXAMINATION: GENERAL: Patient is intubated sedated and vented to settings as mentioned above patient is a FiO2 of 50% PEEP of 15 pedal volume of 450 set up respiratory rate of 28 assist-control ventilation. A HEENT: Pupils are round and equally reacting to light. EOMI. No scleral icterus. No conjunctival pallor. Normocephalic, atraumatic. No pharyngeal erythema. No thyromegaly. CARDIOVASCULAR: S1 and S2 present. No murmurs, rubs, or gallops. PULMONARY: Chest is clear to auscultation, no wheezing or crackles. ABDOMEN: Soft, nontender, nondistended, normoactive bowel sounds. No palpable organomegaly. MUSCULOSKELETAL: No joint swelling or deformity. EXTREMITIES: No cyanosis, clubbing, or pedal edema. NEUROLOGICAL: Gross neurological examination did not reveal any focal deficits. SKIN: No rashes. - Labs CBC & Chem 7: 08/11/19 04:50 08/11/19 04:50 Labs: Abnormal Lab Results - Last 24 Hours (Table) 08/10/19 08/10/19 08/10/19 Range/Units 09:16 18:28 18:30 WBC (3.8-10.6) k/uL RDW (11.5-15.5) % Neutrophils # (1.3-7.7) k/uL Basophils # (0-0.2) k/uL APTT 48.9 H (22.0-30.0) sec ABG pH (7.35-7.45) ABG pO2 (83-108) mmHg ABG HCO3 (21-25) mmol/L ABG Total CO2 (19-24) mmol/L ABG O2 Saturation (94-97) % Potassium (3.5-5.1) mmol/L Chloride (98-107) mmol/L Carbon Dioxide (22-30) mmol/L BUN (9-20) mg/dL Creatinine (0.66-1.25) mg/dL Glucose (74-99) mg/dL POC Glucose (mg/dL) 195 H (75-99) mg/dL Calcium (8.4-10.2) mg/dL ALT (4-49) U/L Ammonia (<30) umol/L Total Protein (6.3-8.2) g/dL Albumin (3.5-5.0) g/dL Procalcitonin 1.34 H (0.02-0.09) ng/mL 08/10/19 08/11/19 08/11/19 Range/Units 23:53 04:50 04:50 WBC 27.4 H (3.8-10.6) k/uL RDW 17.1 H (11.5-15.5) % Neutrophils # 23.7 H (1.3-7.7) k/uL Basophils # 0.3 H (0-0.2) k/uL APTT 51.6 H (22.0-30.0) sec ABG pH (7.35-7.45) ABG pO2 (83-108) mmHg ABG HCO3 (21-25) mmol/L ABG Total CO2 (19-24) mmol/L ABG O2 Saturation (94-97) % Potassium (3.5-5.1) mmol/L Chloride (98-107) mmol/L Carbon Dioxide (22-30) mmol/L BUN (9-20) mg/dL Creatinine (0.66-1.25) mg/dL Glucose (74-99) mg/dL POC Glucose (mg/dL) 223 H (75-99) mg/dL Calcium (8.4-10.2) mg/dL ALT (4-49) U/L Ammonia (<30) umol/L Total Protein (6.3-8.2) g/dL Albumin (3.5-5.0) g/dL Procalcitonin (0.02-0.09) ng/mL 08/11/19 08/11/19 08/11/19 Range/Units 04:50 05:04 05:27 WBC (3.8-10.6) k/uL RDW (11.5-15.5) % Neutrophils # (1.3-7.7) k/uL Basophils # (0-0.2) k/uL APTT (22.0-30.0) sec ABG pH 7.52 H (7.35-7.45) ABG pO2 67 L (83-108) mmHg ABG HCO3 31 H (21-25) mmol/L ABG Total CO2 32 H (19-24) mmol/L ABG O2 Saturation 92.4 L (94-97) % Potassium 3.3 L (3.5-5.1) mmol/L Chloride 109 H (98-107) mmol/L Carbon Dioxide 32 H (22-30) mmol/L BUN 46 H (9-20) mg/dL Creatinine 0.52 L (0.66-1.25) mg/dL Glucose 239 H (74-99) mg/dL POC Glucose (mg/dL) 212 H (75-99) mg/dL Calcium 6.9 L (8.4-10.2) mg/dL ALT 307 H (4-49) U/L Ammonia (<30) umol/L Total Protein 4.8 L (6.3-8.2) g/dL Albumin 2.3 L (3.5-5.0) g/dL Procalcitonin (0.02-0.09) ng/mL 08/11/19 08/11/19 Range/Units 08:07 12:57 WBC (3.8-10.6) k/uL RDW (11.5-15.5) % Neutrophils # (1.3-7.7) k/uL Basophils # (0-0.2) k/uL APTT (22.0-30.0) sec ABG pH (7.35-7.45) ABG pO2 (83-108) mmHg ABG HCO3 (21-25) mmol/L ABG Total CO2 (19-24) mmol/L ABG O2 Saturation (94-97) % Potassium (3.5-5.1) mmol/L Chloride (98-107) mmol/L Carbon Dioxide (22-30) mmol/L BUN (9-20) mg/dL Creatinine (0.66-1.25) mg/dL Glucose (74-99) mg/dL POC Glucose (mg/dL) 176 H (75-99) mg/dL Calcium (8.4-10.2) mg/dL ALT (4-49) U/L Ammonia 45 H (<30) umol/L Total Protein (6.3-8.2) g/dL Albumin (3.5-5.0) g/dL Procalcitonin (0.02-0.09) ng/mL Microbiology - Last 24 Hours (Table) 08/09/19 11:31 Blood Culture - Preliminary Blood No Growth after 48 hours 08/10/19 09:08 Blood Culture - Preliminary Blood No Growth after 24 hours 08/10/19 09:18 Blood Culture - Preliminary Blood No Growth after 24 hours Assessment and Plan Plan: Acute hypoxic and hypercapnic respiratory failure probably secondary to sepsis from a staphylococcal bacteremia possible COPD exacerbation. Continue ventilator support with the above-mentioned vent settings continue with inhalational treatments patient is on systemic steroids mostly for covid 19. His blood cultures remained positive persistent bacteremia with MSSA. Patient is presently on vancomycin, rifaximin, Zosyn -Sepsis shock shock resolved probably secondary to staphylococcal pneumonia, patient has persistent bacteremia with the MRSA need to BRENDA to evaluate for endocarditis. Patient can use to have fever -Possible anoxic brain injury and severe encephalopathy from sepsis. Patient has worsening leukocytosis barely arousable in spite of discontinuation of sedation for more than 48 hours. -Acute renal failure possibly acute tubular necrosis patient creatinine improved with IV fluids -Lactic acidosis secondary to sepsis Hypernatremia and hyperchloremia secondary to normal saline which was 6 to switched to D5 normal saline -Elevated blood pressure uncontrolled accident and hypertension probably related to pain patient is not on any narcotics patient is receiving Motrin through NG tube. Patient was started on daily pain drip -Hyperlipidemia next and heparin hypertension -Elevated liver enzymes probably secondary to shock liver. -Hepatic encephalopathy: Ammonia level is bit better now. -Troponin leak secondary to myocardial injury from sepsis. -Severe pulmonary hypertension
--- NOTE | 2019-08-11 16:00 | PN ---
PROGRESS NOTE DATE OF SERVICE: 08/11/2019 REASON FOR FOLLOWUP: Pneumonia and bacteremia. INTERVAL HISTORY: The patient overall fever pattern has improved with T-max of 99.9 so far in 24 hours. The patient is hemodynamically stable, not requiring any pressor support. No significant purulent secretion through the ET. He did have diarrhea but no worsening stool output. FiO2 is currently stable. PHYSICAL EXAMINATION: Blood pressure is 135/80 with a pulse of 92, temperature 99.3. He is 91% on 50% FiO2. General description is a middle-aged male lying in bed in no distress. Respiratory system: Unlabored breathing, decreased breath sounds in the bases. No wheeze. Heart S1, S2. Regular rate and rhythm. Abdomen soft, no tenderness. LABS: Hemoglobin 13.5, white count 27.4, BUN of 46, creatinine 0.52. Blood culture repeat 08/08 and 08/09 has been negative so far. Chest x-ray, no significant change. DIAGNOSTIC IMPRESSION AND PLAN: Patient with acute respiratory failure which is likely multifactorial, aspiration pneumonia and did have MSSA bacteremia. Followup blood culture has been negative. White count remains to be elevated. Continue to monitor closely. Continue supportive care. MMODL / IJN: [id number] / DARWIN
[2019-08-11 18:14] LABS: Glucose,Whole Blood 193 mg/dL (75-99)
[2019-08-11 23:33] LABS: Glucose,Whole Blood 167 mg/dL (75-99)
[2019-08-12] MEDS: HEPARIN SOD,PORK IN 0.45% NACL 25,000 UNIT in 0.45% NACL 1 250ML.BAG IV SCH (00:47)
[2019-08-12] MEDS ORDERED: VANCOMYCIN TROUGH DUE 1 EACH MISC MISCELLANE ONE (05:00)
[2019-08-12 05:12] LABS: ABG Base Excess 8.2 mmol/L; ABG HCO3 31 mmol/L (21-25); ABG Oxygen Saturation 94.4 % (94-97); ABG PCO2 39 mmHg (35-45); ABG PH 7.52 (7.35-7.45); ABG PO2 79 mmHg (83-108); ABG TCO2 32 mmol/L (19-24); Allen Test Performed? Yes
[2019-08-12 05:22] LABS: ALT 184 U/L (4-49); AST 48 U/L (17-59); African American GFR (CKD) >90 (>60 ml/min/1.73 sqM); Albumin 2.2 g/dL (3.5-5.0); Alkaline Phosphatase 74 U/L (38-126); Anion Gap 2 mmol/L; Blood Urea Nitrogen 38 mg/dL (9-20); Calcium 7.2 mg/dL (8.4-10.2); Carbon Dioxide 33 mmol/L (22-30); Chloride 108 mmol/L (98-107); Glucose 176 mg/dL (74-99); Non-African American GFR(CKD) >90 (>60 ml/min/1.73 sqM); Potassium 3.3 mmol/L (3.5-5.1); Sodium 143 mmol/L (137-145); Total Bilirubin 0.4 mg/dL (0.2-1.3); Total Protein 4.9 g/dL (6.3-8.2)
[2019-08-12 05:23] LABS: Anisocytosis Slight; Basophils # (A) 0.1 k/uL (0-0.2); Basophils % (A) 1 %; Eosinophils # (A) 0.1 k/uL (0-0.7); Eosinophils % (A) 1 %; HCT 36.7 % (39.0-53.0); HGB 11.5 gm/dL (13.0-17.5); Lymphocytes # (A) 1.5 k/uL (1.0-4.8); Lymphocytes % (A) 6 %; MCH 26.3 pg (25.0-35.0); MCHC 31.4 g/dL (31.0-37.0); MCV 83.6 fL (80.0-100.0); Mean Platelet Volume 9.1; Monocytes # (A) 1.1 k/uL (0-1.0); Monocytes % (A) 4 %; Neutrophils # (A) 22.2 k/uL (1.3-7.7); Neutrophils % (A) 88 %; Platelet Count 176 k/uL (150-450); RBC 4.39 m/uL (4.30-5.90); RDW 17.4 % (11.5-15.5); WBC 25.3 k/uL (3.8-10.6)
[2019-08-12 05:36] LABS: Glucose,Whole Blood 141 mg/dL (75-99)
[2019-08-12] MEDS: VANCOMYCIN 2,000 MG in SODIUM CHLORIDE 0.9% 500 ML 500 ML IVPB SCH (05:48)
[2019-08-12] MEDS: INSULIN ASPART (NovoLOG) 100 UNIT/ML VIAL SQ SCH ×4 (05:49→23:21)
[2019-08-12] MEDS: POTASSIUM BICARBONATE/CIT AC 20 MEQ TABLET.EFF NG-TUBE SCH ×2 (05:49→07:10)
--- NOTE | 2019-08-12 07:40 | XR ---
EXAMINATION TYPE: XR chest 1V portable DATE OF EXAM: 08/12/2019 COMPARISON: 08/11/2019 HISTORY: Ventilatory dependent respiratory failure. TECHNIQUE: Single frontal view of the chest is obtained. FINDINGS: Persistent layering pleural effusions, right greater than left are small to moderate. Asso ciated bibasilar airspace disease. Right internal jugular approach central venous catheter remain sim ilar in positioning as does the endotracheal and enteric tubes. Humeral arthroplasty partially visual ized. Again heart borders are obscured. Pulmonary vascular congestion is stable. IMPRESSION: Stable exam from 08/10/2020 small moderate bilateral layering pleural effusions and associ ated airspace disease as well as central pulmonary vascular congestion.
--- NOTE | 2019-08-12 09:09 | US ---
EXAMINATION TYPE: US chest DATE OF EXAM: 08/12/2019 COMPARISON: CXR 08/12/2019 CLINICAL HISTORY: Markings for thoracentesis by pulmonary staff. Abnormal CXR TECHNIQUE: Targeted ultrasound of the posterior lower bilateral hemithoraces EXAM MEASUREMENTS: Right Pleural Effusion pocket size: 2.7 cm, lung prominent in image during inspiration Left Pleural Effusion pocket size: 2.9 cm, lung prominent in image during inspiration Right side NOT marked for possible thoracentesis outside the dept. Left side NOT marked for possible thoracentesis outside the dept. Pulmonologists are able to review the images in the patient?s EMR. IMPRESSIONS: Small bilateral layering pleural effusions, insufficient for safe thoracentesis.
[2019-08-12] MEDS: ASPIRIN 81 MG PO SCH (09:12)
[2019-08-12] MEDS: CHLORHEXIDINE GLUCONATE 15 ML CUP MUCOUS MEM SCH ×2 (09:12→20:00)
[2019-08-12] MEDS: METOPROLOL TARTRATE 50 MG TAB PO SCH ×3 (09:12→20:00)
[2019-08-12] MEDS: FUROSEMIDE 10 MG/ML 4 ML VIAL IV SCH (09:12)
[2019-08-12] MEDS: DIVALPROEX 250 MG TABLET.DR PO SCH (09:12)
[2019-08-12] MEDS: PIPERACILLIN-TAZOBACTAM 3.375 GM in SODIUM CHLORIDE 0.9% 100 ML IVPB SCH (09:13)
[2019-08-12] MEDS: AMIODARONE 200 MG TAB PO SCH ×2 (09:13→20:00)
[2019-08-12] MEDS: RIFAXIMIN 550 MG TABLET PO SCH (09:13)
[2019-08-12] MEDS: PANTOPRAZOLE 40 MG/10 ML VIAL IV SCH (09:13)
[2019-08-12] MEDS: SODIUM CHLORIDE 0.9% 1,000 ML IV SCH (09:39)
[2019-08-12 12:03] LABS: Glucose,Whole Blood 159 mg/dL (75-99)
--- NOTE | 2019-08-12 13:02 | P.PN ---
Subjective Progress Note Date: 08/12/19 Principal diagnosis: Acute hypoxic and hypercapnic respiratory failure, secondary to aspiration pneumonia. 62-year-old male patient who was brought into the emergency department today unresponsive and profoundly hypoxic. The patient was in acute hypoxic respiratory failure. Initial pulse ox was in the mid 30s. Apparently he was not also communicating or responding. He was apparently awake and alert on the morning prior to him coming to the hospital according to the landlord. The landlord noted that the patient was appearing ill and called EMS. Upon EMS arrival, the patient was found to be obtunded. He had a fever of 10 1F. He was found to be hypoxic, brought into the emergency room he was found to be tachycardic and hypoxic with was placed on supplemental oxygen without any benefit and ultimately the patient was intubated and placed on a mechanical ventilator. COVID 19 is suspected. The patient was placed on the opposite isolation. The patient had the appropriate nasal swabs. Chest x-ray showed bilateral airspace disease consistent with pneumonia in addition to interstitial pneumonitis. ET tube was around 3.7 cm above the mario. NG tube was extending into the left abdomen. There was a right upper lobe consolidation noted and a tiny right-sided pleural effusion. No evidence of any pneumothorax. There was bilateral infiltrates and coarse interstitium and a prosthetic left shoulder. The patient has a white cell count of 4.9. He had some lymphopenia. His platelet counts is no within normal limits. The blood gases was done on 100% nonrebreather showed a pH of 7.17 with a pCO2 of 66 and pO2 of 45. The patient also had an acute kidney injury with a creatinine of 1.65. Epigastric level was at 3.1. The ALT is at 1106 with an ammonia level of 146 and a bilirubin of 0.5 and an albumin of 4.1. The serum alcohol was negative and the patient has negative salicylates and acetaminophen. Influenza screen has been negative. Covid 19 analysis still pending for now. This patient lives with a sister in a house and he collects Social Security disability. He has had issues with mental health and the patient has been dealing with bipolar disorder and chronic insomnia of many years duration. He has also chronic anxiety disorder. No history of any previous suicidal ideation or intent. No delusions or hallucinations based on recent psychiatric evaluation that was in the hospital. On today's evaluation of 62,020 the patient is being seen in follow-up in the intensive care unit. Noted the patient is intubated on a mechanical ventilator and is suspected to have Covid 19. He is afebrile on today's evaluation. He remains on a mechanical ventilator. He is sedated with propofol running at 20 mg per KG per minute. He was given a total of 5 L of IV fluid as the patient was hypotensive and currently the fluid is running at 75 mL an hour of normal saline. He remains on norepinephrine infusion at 0.08 mg per KG per minute. He remains on a mechanical ventilator. His assist-control mode at the rate of 28 with a tidal volume of 450 and FiO2 of 60% with a PEEP of 15. His blood gases showed a pH of 7.12 with a pCO2 of 58 and pO2 of 187. This was done and FiO2 of 100%. Otherwise, the patient has blood abnormalities it is consistent with Covid 19 infection. He has a rhabdomyolysis with a CPK level of 6114. He has also transaminitis with a AST of 3354, ALT of 1962, and his LDH level is at 8367. His creatinine is at 1.2, which is up from a baseline of 1.65 with fluid resuscitation. His current minute ventilation is 13 L. I made recommendations to keep the same vent setting. Based on the blood on of some non-anion gap metabolic acidosis, and with recommendations to start the patient on bicarb infusion and addition to 2 A of IV bicarb pushes. He was having temperatures throughout the night with temperature maximum 100.8. Current temperature is 99.6. He'll be started on enteral feeding for nutritional support. Covid 19 evaluation is still pending for now. On today's evaluation of 08/07/2019 and seeing this patient for a follow-up. The patient has sedated with propofol. He was given a sedation holiday yesterday and his neurologic exam was suboptimal as the patient did not show adequate neurologic recovery. Based on that, a CAT scan of the brain was done and the CAT scan of the brain was negative for any acute abnormalities. Noted the patient was profoundly hypoxic and at time of admission to the hospital and there is a suspicion for hypoxic encephalopathy. Contrary to my expectations, the patient checked negative for Covid 19 infection. The blood culture came back positive for staph aureus. Currently is on a combination of cefepime and vancomycin. The patient was resuscitated with more than 5 L of normal saline and the patient is also requiring some pressors for hemodynamic support and levo fed was started and 8 on was placed on hold as of 5:00 this morning. Urine output in the order of 40 mL an hour. In terms of sedation, the patient is on propofol at 20 g per KG per minute. Note that the patient had issues with a significant leak around his orotracheal tube. This was replaced yesterday by [employer] without any major difficulties. This morning, he remains on a VC plus mode with a rate of 28 and a tidal volume of 450 and a nighttime of 1 second with a PEEP of 15 with an FiO2 of 50%. Blood gases from today showed a pH of 7.36 with a pCO2 of 37 and pO2 of 92. Chest x-ray showing diffuse bilateral pulmonary infiltrates. His cardiac rhythm is still in atrial fibrillation. He is on amiodarone maintenance at 0.5 mg per minute. The patient has a creatinine of 1 .5. There is still evidence of transaminitis with elevation of the AST and ALP and both are improving. LDH level is elevated at 5738. CPKs improving at 2431. C-reactive protein is elevated at 622. Note that the LDH is on the decline, CPKs on the decline on today's evaluation. LFTs are also improving. On 08/08/2019 on seeing this patient for a follow-up. The patient has been off sedation since yesterday. I am not seeing an adequate neurologic recovery in this patient. There may be a component of hepatic encephalopathy in the patient's went into shock liver. Nevertheless, his ammonia is dropping. He is on lactulose. He is producing adequate amount of bowel activity. He is undergo ing training the painful stimulation. Pupils are about 3 mm in size and there is C-reactive to light. There is a very weak cough and a gag. Absolutely no response to deep painful stimulation. No seizure activity has been noted. Neurology will be consulted on the case. EEG will be ordered. Meanwhile, the patient is clearly becoming a case of possible aspiration staphylococcal pneumonia. His blood culture came back positive for staph aureus. His sputum positive for staph. He also has gram-negative bacillus in his sputum which sock turner to be E. coli. For now, the cultures and the blood to be MSSA. The patient was on examination of cefepime and vancomycin. I dropped the cefepime and I utilized Zosyn to give him better anaerobic coverage as the patient clearly has a history of aspiration. Meanwhile, the Covid test came back negative. The patient remains on a mechanical ventilator. On today's chest x-ray there is worsening over the bilateral pulmonary infiltrates worse on the right. ET tube remains in a good location. The patient remains on an assist-control mode at the rate of 18 with a tidal volume of 450 and FiO2 of 50% with a PEEP of 10. Blood gas showed a pH of 7.46 with a pCO2 of 34 and pO2 of 103. CVP is ranging between 12 and 14. He remains in atrial fibrillation. He is on amiodarone drip maintenance at 0.5 mg per minute. He is also on normal saline at the rate of 75 mL an hour. His age fibrillation is under better control and he is on no pressors. He can tolerate beta blockers. He is having low-grade fever still. The white cell count is up to 22. The shock liver is improving including the AST and ALP level. The LDH level was elevated. The CPKs also improving is down to 2431. His ammonia level is down to 85. His coagulation profile is within normal limits. On 08/09/2019 the patient is being seen in follow-up in intensive care unit. Unfortunately, the patient has been off sedation for more than 24 hours and the patient is still not showing significant neurologic recovery. The patient is not following any specific commands. In fact he is not even withdrawing to deep painful stimulation. No seizure activity has been noted. EEG was done and showed diffuse slowing and it was consistent with severe encephalopathy which could be toxic metabolic encephalopathy versus hypoxic encephalopathy. The patient will be kept off sedation. Meanwhile, the ammonia level is progressively coming down and is down to 58. He continues to have a week cough and gag reflex. The patient remains in atrial fibrillation. The patient remained on assist control mode of ventilation. He is on VC plus mode at the rate of 28 with a tidal volume of 450 and FiO2 of 50% with a PEEP of 10. The blood gases from today shows a component of respiratory alkalosis with a pH of 7.5 with a pCO2 of 36 and pO2 of 71. The white cell count of 23. The patient has developed some hyperchloremic hypernatremia in the sodium level is up to 147 with a chloride of 114. Renal function is stable. The patient is receiving vital high protein at the rate of 52 mL an hour. In terms of atrial fibrillation, I had utilized back the amiodarone drip at 0.5 mg per minute and the patient is also on metoprolol 50 mg by mouth 3 times a day. Heart rate is still slightly tachycardic and will continue the same regimen for now. The patient was given a dose of Lasix yesterday. The patient Is producing better urine output for now. His weight is still up. The CPKs down to 395. The AST is down to 1000. ALT is down to 58. LDH is down to 03/10/2007. Calcium level at 7.1. No other significant issues otherwise over the past 24 hours. He remains on a combination of Zosyn and vancomycin. The blood culture and the sputum culture was positive for MSSA. The sputum culture was positive for E. coli. The chest x-ray still showing rather consolidation worse on the right compared to the left. ET tube remains in a good location. On 08/10/2019 the patient has been approximately 72 hours of sedation. Unfortunately, we do not see any significant neurologic recovery the patient's condition. He is still not responding to any verbal or deep painful stimulatio n. He remains completely unresponsive. On this morning, I have a mild assist- control mode of ventilation with a VC plus mode at a tidal volume of 450 FiO2 of 50% with a PEEP of 10 and the respiratory rate of 24. His blood gases showed a component of respiratory alkalosis. His pH is at 7.53 with a pCO2 of 39 pO2 of 63. Chest x-ray still showing bilateral pneumonia bilateral airspace disease wo rse on the right along with cardiomegaly and bilateral pleural effusions. ET tube is in a good location. The patient's white cell count is at 27. The patient is still having episodes of fever. Most recent blood culture from 2 days ago was positive for MSSA and MSSA was also cultured and his lungs and it was cultured also E. coli in his lungs. We are still thinking that this was an aspiration pneumonia. Shock liver, his LFTs are nearly normalized, severe has also dropped and ammonia level is being monitored is still elevated at 83. The lactulose was held as the patient was having liquidy stool and the patient had become also hyperchloremic and the sodium level is up to 149. He is receiving free water supplements with NG for now. He is also on vital high protein. In terms of his atrial fibrillation, rate is under better control with a combination of amiodarone maintenance of 0.5 mg per minute and Cardizem drip at 10 mg an hour. The patient is also on IV heparin. The active issue for now is his altered mentation. On 08/11/2019, I'm seeing the patient for a follow-up in intensive care unit. His been off sedation for the past 92 hours. On today's evaluation that is some slight grimacing upon very deep painful stimulation and upon pinching on his upper chest. For the most part he remains unresponsive. No seizure activity. Shock liver has recovered. Ammonia level is on the decline. I started the patient on rifixamine 550 mg by mouth twice a day yesterday and ammonia level is down to 45. I suspect a component of hypoxic encephalopathy although the possibility of metabolic encephalopathy cannot be completely ruled out. He is on a mechanical ventilator. No change in the vent setting. No changes in the x-ray findings as the patient has extensive airspace disease bilaterally more so on the right lower lobe. On the ventilator, the patient is on a VC plus mode with a tidal volume of 450 and FiO2 of 50% with a PEEP of 10 and tidal volume of 450 with a rate of 16. The patient's blood gas showed a pH of 7.52 with a pCO2 of 39 and pO2 of 67. On and off he was still having fever yesterday. Repeat blood cultures were sent. He remains on examination Zosyn and vancomycin. He is tolerating his enteral feeding for nutritional support. Is on IV heparin d rip regarding his atrial fibrillation. He remains on amiodarone drip and oral metoprolol for rate control. He is also started on Cleviprex which is running at 2 mg an hour for tighter blood pressure control. The active issue remains his altered mentation with a possibility of him having hypoxic encephalopathy with the details as mentioned above. Patient was reevaluated today on 08/12/19, remains on mechanical ventilation, his ventilator settings are assist control rate 16 volume control plus at 450 FiO2 at 50% and PEEP of 10. ABG showed a pO2 of 79 pCO2 of 39 pH of 7.52. Chest x- ray continues to show bilateral pleural effusions, and by basilar space disease, hence I recommended ultrasound to evaluate for possible thoracentesis if the effusion isn't large enough to be drained. However the ultrasound showed minimal pleural effusions bilaterally, insufficient for thoracentesis. Patient remains on Zosyn and vancomycin, and he hasn't MSSA bacteremia, sputum is positive for E. coli and staph aureus. Neurologically the patient is about the same, however the only change noted today is the fact that the patient tries to open his eyes and grimacing upon deep painful stimuli. Remains off narcotics and sedatives. WBC count is up to 25.3 today slightly improved compared to yesterday. Basic metabolic profile is basically normal and his BUN is improving down to 38 creatinine is 0.55. Liver enzymes are steadily improving. Ammonia is 60 today. It was as high as 146 about a week ago remains on rifaximin. Objective - Vital Signs Vital signs: Vital Signs Temp 98.4 F 08/12/19 08:00 Pulse 72 08/12/19 11:00 Resp 26 H 08/12/19 11:00 BP 154/78 08/12/19 11:00 Pulse Ox 92 L 08/12/19 11:00 Intake & Output 08/11/19 08/12/19 08/12/19 18:59 06:59 18:59 Intake Total 2881 2798.383 523 Output Total 1925 1350 220 Balance 956 1448.383 303 Weight 107.2 kg 107.2 kg Intake: IV 1329 1127 210 Dextrose 5% in Water 1, 900 825 000 ml @ 75 mls/hr IV . [id number] [facility] Rx#:[id number] Piperacillin-Tazobactam 3 100 100 100 .375 gm In Sodium Chloride 0.9% 100 ml @ 25 mls/hr IVPB Q8HR [facility] Rx# :[id number] Pressure bag 72 72 30 Sodium Chloride 0.9% 1, 90 130 80 000 ml @ 10 mls/hr IV . Q24H [facility] Rx#:[id number] Vancomycin 1,750 mg In 167 Sodium Chloride 0.9% 500 ml 500 ml @ 167 mls/hr IVPB Q12H [facility] Rx#: [id number] Intake, IV Titration 300 235.383 Amount Clevidipine Butyrate 25 50 mg In Empty Bag 1 bag @ 1 MG/HR 2 mls/hr IV .Q24H [facility] Rx#:[id number] Heparin Sod,Pork in 0.45% 250 235.383 NaCl 25,000 unit In 0.45 % NaCl 1 250ml.bag @ 12 UNITS/KG/HR 12.732 mls/hr IV .[id number] [facility] Rx#: [id number] Tube Feeding 852 1136 213 Other 400 300 100 Output: Urine 1925 1350 220 Other: Voiding Method Indwelling Catheter Indwelling Catheter Indwelling Catheter ABP, PAP, CO, CI - Last Documented Arterial Blood Pressure 191/70 - Exam Gen. appearance, revealed 64-year-old white male intubated on mechanical ventilation. Unresponsive to verbal stimuli. Head: Atraumatic normocephalic. EENT: PERRLA, EOMI, no icterus, no neck masses, no JVD, no stridor, endotracheal tube and orogastric tube are intact. Lungs: Symmetrical chest expansion, crackles at the bases no rhonchi and no wheezes. Cardiac exam : Normal S1 and S2, no S3 gallop. No murmur. Abdominal exam: Soft nontender no megaly no rebound no guarding. Examination: No clubbing edema or cyanosis. Examination: No rashes Neurologically the patient is unresponsive. Grimacing and trying to open eyes on deep painful stimuli. Psychiatric: Could not be assessed. - Labs CBC & Chem 7: 08/12/19 04:56 08/12/19 11:37 Labs: Abnormal Lab Results - Last 24 Hours (Table) 08/11/19 08/11/19 08/11/19 Range/Units 12:57 18:12 23:31 WBC (3.8-10.6) k/uL Hgb (13.0-17.5) gm/dL Hct (39.0-53.0) % RDW (11.5-15.5) % Neutrophils # (1.3-7.7) k/uL Monocytes # (0-1.0) k/uL APTT (22.0-30.0) sec ABG pH (7.35-7.45) ABG pO2 (83-108) mmHg ABG HCO3 (21-25) mmol/L ABG Total CO2 (19-24) mmol/L Potassium (3.5-5.1) mmol/L Chloride (98-107) mmol/L Carbon Dioxide (22-30) mmol/L BUN (9-20) mg/dL Creatinine (0.66-1.25) mg/dL Glucose (74-99) mg/dL POC Glucose (mg/dL) 176 H 193 H 167 H (75-99) mg/dL Calcium (8.4-10.2) mg/dL ALT (4-49) U/L Ammonia (<30) umol/L Total Protein (6.3-8.2) g/dL Albumin (3.5-5.0) g/dL 08/12/19 08/12/19 08/12/19 Range/Units 04:56 04:56 04:56 WBC 25.3 H (3.8-10.6) k/uL Hgb 11.5 L (13.0-17.5) gm/dL Hct 36.7 L (39.0-53.0) % RDW 17.4 H (11.5-15.5) % Neutrophils # 22.2 H (1.3-7.7) k/uL Monocytes # 1.1 H (0-1.0) k/uL APTT 44.8 H (22.0-30.0) sec ABG pH (7.35-7.45) ABG pO2 (83-108) mmHg ABG HCO3 (21-25) mmol/L ABG Total CO2 (19-24) mmol/L Potassium 3.3 L (3.5-5.1) mmol/L Chloride 108 H (98-107) mmol/L Carbon Dioxide 33 H (22-30) mmol/L BUN 38 H (9-20) mg/dL Creatinine 0.55 L (0.66-1.25) mg/dL Glucose 176 H (74-99) mg/dL POC Glucose (mg/dL) (75-99) mg/dL Calcium 7.2 L (8.4-10.2) mg/dL ALT 184 H (4-49) U/L Ammonia (<30) umol/L Total Protein 4.9 L (6.3-8.2) g/dL Albumin 2.2 L (3.5-5.0) g/dL 08/12/19 08/12/19 08/12/19 Range/Units 05:10 05:35 06:15 WBC (3.8-10.6) k/uL Hgb (13.0-17.5) gm/dL Hct (39.0-53.0) % RDW (11.5-15.5) % Neutrophils # (1.3-7.7) k/uL Monocytes # (0-1.0) k/uL APTT (22.0-30.0) sec ABG pH 7.52 H (7.35-7.45) ABG pO2 79 L (83-108) mmHg ABG HCO3 31 H (21-25) mmol/L ABG Total CO2 32 H (19-24) mmol/L Potassium (3.5-5.1) mmol/L Chloride (98-107) mmol/L Carbon Dioxide (22-30) mmol/L BUN (9-20) mg/dL Creatinine (0.66-1.25) mg/dL Glucose (74-99) mg/dL POC Glucose (mg/dL) 141 H (75-99) mg/dL Calcium (8.4-10.2) mg/dL ALT (4-49) U/L Ammonia 60 H (<30) umol/L Total Protein (6.3-8.2) g/dL Albumin (3.5-5.0) g/dL 08/12/19 Range/Units 12:01 WBC (3.8-10.6) k/uL Hgb (13.0-17.5) gm/dL Hct (39.0-53.0) % RDW (11.5-15.5) % Neutrophils # (1.3-7.7) k/uL Monocytes # (0-1.0) k/uL APTT (22.0-30.0) sec ABG pH (7.35-7.45) ABG pO2 (83-108) mmHg ABG HCO3 (21-25) mmol/L ABG Total CO2 (19-24) mmol/L Potassium (3.5-5.1) mmol/L Chloride (98-107) mmol/L Carbon Dioxide (22-30) mmol/L BUN (9-20) mg/dL Creatinine (0.66-1.25) mg/dL Glucose (74-99) mg/dL POC Glucose (mg/dL) 159 H (75-99) mg/dL Calcium (8.4-10.2) mg/dL ALT (4-49) U/L Ammonia (<30) umol/L Total Protein (6.3-8.2) g/dL Albumin (3.5-5.0) g/dL Microbiology - Last 24 Hours (Table) 08/10/19 09:08 Blood Culture - Preliminary Blood No Growth after 48 hours 08/10/19 09:18 Blood Culture - Preliminary Blood No Growth after 48 hours 08/09/19 11:31 Blood Culture - Preliminary Blood No Growth after 48 hours Assessment and Plan Assessment: Impression: Acute hypoxic and hypercapnic respiratory failure. Suspect aspiration pneumonia. MSSA bacteremia Acute kidney injury, improving. Secondary to acute sepsis. Acute sepsis, and acute lactic acidosis on presentation. Chronic psychiatric disorder/bipolar disorder. Dyslipidemia. Benign essential hypertension. Shock liver. Acute rhabdomyolysis, improving. Pulmonary hypertension. Staph aureus septicemia, MSSA. Hyperchloremic hypernatremia secondary to diarrhea and intravascular volume depletion. Improved with D5W. Acute hepatic/metabolic encephalopathy, Recommendation: Continue ventilatory support Continue nutritional support/enteral feeding. Continue GI and DVT prophylaxis.. Continue antibiotics. Patient is now on Zosyn and vancomycin. Continue amiodarone. Continue metoprolol. Continue IV heparin for atrial fibrillation/chronic Continue to monitor renal and liver profile. Continue to monitor and address ammonia level. Continue to monitor neurological status and hepatic encephalopathy. Prognosis remains guarded. Critical care time is 40 minutes. Time with Patient: Greater than 30
--- NOTE | 2019-08-12 13:43 | P.PN ---
Subjective Patient is admitted for acute hypoxic and hypercapnic respiratory failure which was believed to be secondary to Covid 19 pneumonia patient is presently on FiO2 of 60%. Patient does have related troponin by highly elevated be high d-dimer is of which patient is on anti-correlation dose of the Lovenox. Patient scored 19 is pending patient has chest x-ray findings consistent with the pulmonary edema or atypical pneumonia or Covid 19 pneumonia along with the significant transaminitis elevated highly elevated LDH highly elevated. Ferritin and si gnificant lymphopenia ration continues to have fever. Patient also has acute renal failure secondary to possibly acute tubular necrosis patient is on sodium bicarbonate and D5 because of hyperkalemia. 08/07/2019 Patient the white blood cell count went up to 17,000. His blood cultures are positive for staph aureus we'll repeat the blood cultures tomorrow. Patient liver enzymes are elevated because of shock liver ultrasound did not show significant abnormality. Patient had an elevated ammonia yesterday which is actually better now after lactulose, patient is off pressors. Patient remains on amiodarone. Computed tomography scan of the brain did not show any significant abnormality patient Covid 19 is negative patient remains on cefepime and vancomycin. Primary source is probably lung. Patient has fairly good urine output at 400 mL per hour on volume control ventilation set up respiratory rate of 28 total volume of 450 PEEP of 15 episode of 50% patient's hypercapnic respiratory failure improved and hypoxic respiratory failure improved patient has pH of 7.36 pCO2 of 37 08/07/2028 patient doesn't have any significant clinical improvement remains bacteremic repeat blood cultures are being obtained for today and tomorrow as well. Patient has staph aureus in the blood patient probably will need the transesophageal echocardiogram. Patient is off sedation but is not arousable yet because of which neurology is evaluating the patient and patient is getting EEG patient remains on Vanco mycin cefepime was switched to Zosyn because of concern for aspiration patient aspirin cultures are positive for staph aureus and E. coli along with the species infectious disease is following the patient as well. 08/09/2019 She is still the remains is severely encephalopathic and it and the just withdrawing from painful stimuli off sedation for about 2 days. Patient has severe toxic and metabolic encephalopathy patient is mildly alkalotic patient's present tidal volume is 450 and set up respiratory rate was Down now and patient is breathing over the ventilator and is breathing at around 24/m on an average. FiO2 of 50% PEEP of 10. Patient liver enzymes are bit better patient remains on Zosyn and vancomycin probably vancomycin can be discontinued as patient has MSSA in the blood cultures. Infectious disease is following the patient. Patient white blood cell count remains high patient eventually will need a BRENDA to rule out endocarditis, will plan on this if he has some response on the antibiotics and less encephalopathic and if there is any improvement 08/10/2019 No significant change in his clinical condition including his mental status which it has not improved at patient is hyponatremic because of IV fluids patient is on D5 water now because of hypernatremia and hyperchloremia. Patient remains in the same vent settings as as today remains bacteremic prognosis is extremely poor. Tomorrow we'll discuss with the family regarding overall goals of care. Patient is presently not on pressor support serum creatinine remains stable patient is on amiodarone for atrial fibrillation patient will need repeat blood cultures again tomorrow patient is having thick secretions from the endotracheal to. Patient is presently on Zosyn and vancomycin, rifampin was added patient was started on daily. Because of elevated blood pressure by tag and label cutter 08/11/2019 Independent improvement in his clinical status today daughter is awaiting evaluation by neurologist if patient remains severely encephalopathy Secondary. There is no chance of reasonable neurological recovery she wants to make him comfort care at that time. Patient remains on clevidipine. Patient last 2 blood cultures are negative. 08/11/2022 Patient is still on ventilator support patient the blood cultures are negative so far his bacteremia secondary to pneumonia. Patient is bit more responsive and response to 2 painful stimuli. White blood cell count started improving patient overall has some improvement has good urine output. Review Of systems: Unable to obtain due to his clinical condition. All inpatient medications were reviewed and appropriate changes in these medications as dictated in the interval history and assessment and plan. Objective - Vital Signs Vital signs: Vital Signs Temp 98.4 F 08/12/19 08:00 Pulse 72 08/12/19 11:00 Resp 26 H 08/12/19 11:00 BP 154/78 08/12/19 11:00 Pulse Ox 92 L 08/12/19 11:00 Intake & Output 08/11/19 08/12/19 08/12/19 18:59 06:59 18:59 Intake Total 2881 2798.383 523 Output Total 1925 1350 220 Balance 956 1448.383 303 Weight 107.2 kg 107.2 kg Intake: IV 1329 1127 210 Dextrose 5% in Water 1, 900 825 000 ml @ 75 mls/hr IV . [id number] [facility] Rx#:[id number] Piperacillin-Tazobactam 3 100 100 100 .375 gm In Sodium Chloride 0.9% 100 ml @ 25 mls/hr IVPB Q8HR [facility] Rx# :[id number] Pressure bag 72 72 30 Sodium Chloride 0.9% 1, 90 130 80 000 ml @ 10 mls/hr IV . Q24H [facility] Rx#:[id number] Vancomycin 1,750 mg In 167 Sodium Chloride 0.9% 500 ml 500 ml @ 167 mls/hr IVPB Q12H [facility] Rx#: [id number] Intake, IV Titration 300 235.383 Amount Clevidipine Butyrate 25 50 mg In Empty Bag 1 bag @ 1 MG/HR 2 mls/hr IV .Q24H [facility] Rx#:[id number] Heparin Sod,Pork in 0.45% 250 235.383 NaCl 25,000 unit In 0.45 % NaCl 1 250ml.bag @ 12 UNITS/KG/HR 12.732 mls/hr IV .[id number] [facility] Rx#: [id number] Tube Feeding 852 1136 213 Other 400 300 100 Output: Urine 1925 1350 220 Other: Voiding Method Indwelling Catheter Indwelling Catheter Indwelling Catheter ABP, PAP, CO, CI - Last Documented Arterial Blood Pressure 191/70 - Exam PHYSICAL EXAMINATION: GENERAL: Patient is intubated sedated and vented to settings as mentioned above patient is a FiO2 of 50% PEEP of 15 pedal volume of 450 set up respiratory rate of 28 assist-control ventilation. A HEENT: Pupils are round and equally reacting to light. EOMI. No scleral icterus. No conjunctival pallor. Normocephalic, atraumatic. No pharyngeal erythema. No thyromegaly. CARDIOVASCULAR: S1 and S2 present. No murmurs, rubs, or gallops. PULMONARY: Chest is clear to auscultation, no wheezing or crackles. ABDOMEN: Soft, nontender, nondistended, normoactive bowel sounds. No palpable organomegaly. MUSCULOSKELETAL: No joint swelling or deformity. EXTREMITIES: No cyanosis, clubbing, or pedal edema. NEUROLOGICAL: Gross neurological examination did not reveal any focal deficits. SKIN: No rashes. - Labs CBC & Chem 7: 08/12/19 04:56 08/12/19 11:37 Labs: Abnormal Lab Results - Last 24 Hours (Table) 08/11/19 08/11/19 08/12/19 Range/Units 18:12 23:31 04:56 WBC 25.3 H (3.8-10.6) k/uL Hgb 11.5 L (13.0-17.5) gm/dL Hct 36.7 L (39.0-53.0) % RDW 17.4 H (11.5-15.5) % Neutrophils # 22.2 H (1.3-7.7) k/uL Monocytes # 1.1 H (0-1.0) k/uL APTT (22.0-30.0) sec ABG pH (7.35-7.45) ABG pO2 (83-108) mmHg ABG HCO3 (21-25) mmol/L ABG Total CO2 (19-24) mmol/L Potassium (3.5-5.1) mmol/L Chloride (98-107) mmol/L Carbon Dioxide (22-30) mmol/L BUN (9-20) mg/dL Creatinine (0.66-1.25) mg/dL Glucose (74-99) mg/dL POC Glucose (mg/dL) 193 H 167 H (75-99) mg/dL Calcium (8.4-10.2) mg/dL ALT (4-49) U/L Ammonia (<30) umol/L Total Protein (6.3-8.2) g/dL Albumin (3.5-5.0) g/dL 08/12/19 08/12/19 08/12/19 Range/Units 04:56 04:56 05:10 WBC (3.8-10.6) k/uL Hgb (13.0-17.5) gm/dL Hct (39.0-53.0) % RDW (11.5-15.5) % Neutrophils # (1.3-7.7) k/uL Monocytes # (0-1.0) k/uL APTT 44.8 H (22.0-30.0) sec ABG pH 7.52 H (7.35-7.45) ABG pO2 79 L (83-108) mmHg ABG HCO3 31 H (21-25) mmol/L ABG Total CO2 32 H (19-24) mmol/L Potassium 3.3 L (3.5-5.1) mmol/L Chloride 108 H (98-107) mmol/L Carbon Dioxide 33 H (22-30) mmol/L BUN 38 H (9-20) mg/dL Creatinine 0.55 L (0.66-1.25) mg/dL Glucose 176 H (74-99) mg/dL POC Glucose (mg/dL) (75-99) mg/dL Calcium 7.2 L (8.4-10.2) mg/dL ALT 184 H (4-49) U/L Ammonia (<30) umol/L Total Protein 4.9 L (6.3-8.2) g/dL Albumin 2.2 L (3.5-5.0) g/dL 08/12/19 08/12/19 08/12/19 Range/Units 05:35 06:15 12:01 WBC (3.8-10.6) k/uL Hgb (13.0-17.5) gm/dL Hct (39.0-53.0) % RDW (11.5-15.5) % Neutrophils # (1.3-7.7) k/uL Monocytes # (0-1.0) k/uL APTT (22.0-30.0) sec ABG pH (7.35-7.45) ABG pO2 (83-108) mmHg ABG HCO3 (21-25) mmol/L ABG Total CO2 (19-24) mmol/L Potassium (3.5-5.1) mmol/L Chloride (98-107) mmol/L Carbon Dioxide (22-30) mmol/L BUN (9-20) mg/dL Creatinine (0.66-1.25) mg/dL Glucose (74-99) mg/dL POC Glucose (mg/dL) 141 H 159 H (75-99) mg/dL Calcium (8.4-10.2) mg/dL ALT (4-49) U/L Ammonia 60 H (<30) umol/L Total Protein (6.3-8.2) g/dL Albumin (3.5-5.0) g/dL Microbiology - Last 24 Hours (Table) 08/10/19 09:08 Blood Culture - Preliminary Blood No Growth after 48 hours 08/10/19 09:18 Blood Culture - Preliminary Blood No Growth after 48 hours 08/09/19 11:31 Blood Culture - Preliminary Blood No Growth after 48 hours Assessment and Plan Plan: Acute hypoxic and hypercapnic respiratory failure secondary to sepsis from a staphylococcal bacteremia possible COPD exacerbation. Continue ventilator support with the above-mentioned vent settings continue with inhalational treatments His blood cultures remained positive persistent bacteremia with MSSA. Patient patient will be switched to cefazolin and clindamycin, which provides double coverage for MSSA and also covers aspiration pneumonia if any. -Sepsis shock shock resolved y secondary to staphylococcal pneumonia, patient has persistent bacteremia -Severe toxic encephalopathy from sepsis and septic shock -Acute renal failure possibly acute tubular necrosis patient creatinine improved with IV fluids -Lactic acidosis secondary to sepsis Hypernatremia and hyperchloremia secondary to normal saline which was discontinued and patient received Lasix yesterday. -Hypertension -Hyperlipidemia next and heparin hypertension -Elevated liver enzymes probably secondary to shock liver. -Hepatic encephalopathy: Ammonia level is bit better now. -Troponin leak secondary to myocardial injury from sepsis. -Severe pulmonary hypertension
[2019-08-12] MEDS ORDERED: VANCOMYCIN 2,000 MG in SODIUM CHLORIDE 0.9% 500 ML 500 ML IVPB SCH (14:00)
[2019-08-12] MEDS: CLINDAMYCIN 600 MG in DEXTROSE 5% IN WATER 50 ML IVPB SCH ×4 (16:41→23:05)
[2019-08-12 17:02] LABS: Glucose,Whole Blood 127 mg/dL (75-99)
[2019-08-12] MEDS: CLEVIDIPINE BUTYRATE 25 MG in EMPTY BAG 1 BAG IV SCH (17:59)
[2019-08-12] MEDS: LORazepam 2 MG/ML INJ IV PRN (18:16)
--- NOTE | 2019-08-12 20:30 | XR ---
EXAMINATION TYPE: XR chest 1V portable DATE OF EXAM: 08/12/2019 COMPARISON: 08/12/2019 HISTORY: Hypoxemia TECHNIQUE: FINDINGS: Endotracheal tube is 4.5 cm from the mario. There is right jugular catheter with tip in th e superior vena cava. There is left shoulder prosthesis. There is blunting of costophrenic angles wit h airspace infiltrate and atelectasis both lower lobes. IMPRESSION: Bilateral lower lobe pneumonia and atelectasis and probable pleural fluid that is the radha e as exam this morning. Mild heart failure is possible.
[2019-08-12] MEDS ORDERED: VALPROIC ACID ORAL SOLN 250 MG/5 ML CUP OG-TUBE SCH (21:00)
[2019-08-12 23:19] LABS: Glucose,Whole Blood 185 mg/dL (75-99)
--- NOTE | 2019-08-13 02:27 | PN ---
PROGRESS NOTE DATE OF SERVICE: 08/12/2019 REASON FOR FOLLOW UP: MSSA bacteremia and aspiration pneumonia. INTERVAL HISTORY: The patient is still running a low-grade fever of 100.8. The patient is slowly waking up. He is hemodynamically stable, not on any pressor support. No significant purulent secretion through the ET or any diarrhea. No worsening diarrhea has been reported by nursing staff. PHYSICAL EXAMINATION: Blood pressure is 128/63 with a pulse of 76, temperature 100.8. He is 95% on 60% FiO2. General description is a middle-aged male lying in bed in no distress. RESPIRATORY SYSTEM: Unlabored breathing, decreased breath sounds in the bases. No wheeze. Heart: S1, S2. Regular rate and rhythm. ABDOMEN: Soft, no tenderness. LABS: Hemoglobin 11.5, white count 25.3 BUN of 38, creatinine 0.55. DIAGNOSTIC IMPRESSION AND PLAN: Patient with acute respiratory failure which is likely multifactorial in this patient did have evidence of MSSA bacteremia and a component of aspiration pneumonia. Antibiotic has been adjusted to cefazolin to prevent nephrotoxicity with vancomycin and Zosyn and monitor clinical course closely. Continue with supportive care. MMODL / IJN: [id number] / MTDPari
[2019-08-13 04:38] LABS: Anisocytosis Slight; Basophils # (A) 0.1 k/uL (0-0.2); Basophils % (A) 0 %; Eosinophils # (A) 0.2 k/uL (0-0.7); Eosinophils % (A) 1 %; HCT 33.3 % (39.0-53.0); HGB 10.5 gm/dL (13.0-17.5); Hypochromasia Slight; Lymphocytes # (A) 1.5 k/uL (1.0-4.8); Lymphocytes % (A) 6 %; MCH 26.9 pg (25.0-35.0); MCHC 31.5 g/dL (31.0-37.0); MCV 85.2 fL (80.0-100.0); Mean Platelet Volume 8.5; Monocytes # (A) 0.7 k/uL (0-1.0); Monocytes % (A) 3 %; Neutrophils # (A) 21.5 k/uL (1.3-7.7); Neutrophils % (A) 89 %; Platelet Count 209 k/uL (150-450); RBC 3.91 m/uL (4.30-5.90); RDW 17.1 % (11.5-15.5); WBC 24.1 k/uL (3.8-10.6)
[2019-08-13 05:16] LABS: ALT 162 U/L (4-49); AST 95 U/L (17-59); African American GFR (CKD) >90 (>60 ml/min/1.73 sqM); Albumin 2.1 g/dL (3.5-5.0); Alkaline Phosphatase 75 U/L (38-126); Anion Gap 3 mmol/L; Blood Urea Nitrogen 44 mg/dL (9-20); Calcium 7.7 mg/dL (8.4-10.2); Carbon Dioxide 31 mmol/L (22-30); Chloride 110 mmol/L (98-107); Glucose 158 mg/dL (74-99); Non-African American GFR(CKD) >90 (>60 ml/min/1.73 sqM); Potassium 3.4 mmol/L (3.5-5.1); Sodium 144 mmol/L (137-145); Total Bilirubin 0.3 mg/dL (0.2-1.3)
[2019-08-13 05:29] LABS: Glucose,Whole Blood 148 mg/dL (75-99)
[2019-08-13] MEDS: POTASSIUM BICARBONATE/CIT AC 20 MEQ TABLET.EFF NG-TUBE SCH ×2 (05:33→05:54)
[2019-08-13] MEDS: INSULIN ASPART (NovoLOG) 100 UNIT/ML VIAL SQ SCH ×4 (05:54→18:44)
[2019-08-13] MEDS: HEPARIN SOD,PORK IN 0.45% NACL 25,000 UNIT in 0.45% NACL 1 250ML.BAG IV SCH ×2 (05:55→20:09)
[2019-08-13 07:36] LABS: ABG Base Excess 8.7 mmol/L; ABG HCO3 33 mmol/L (21-25); ABG PCO2 48 mmHg (35-45); ABG PH 7.44 (7.35-7.45); ABG PO2 124 mmHg (83-108); ABG TCO2 34 mmol/L (19-24)
[2019-08-13 07:38] LABS: Allen Test Performed? no
--- NOTE | 2019-08-13 09:05 | XR ---
EXAMINATION TYPE: XR chest 1V portable DATE OF EXAM: 08/13/2019 COMPARISON: 08/12/2019 HISTORY: Endotracheal tube placement TECHNIQUE: Single frontal view of the chest is obtained. FINDINGS: Cardiomediastinal silhouette is again enlarged. Bilateral small pleural effusions redemons trated with associated airspace disease. Right hemidiaphragm elevation again seen. Endotracheal and e nteric tubes as well as the right internal jugular central venous catheter appear similar. Reverse le ft humeral arthroplasty noted. IMPRESSION: Similar exam to 08/12/2019 with small pleural effusions and associated bibasilar airspace disease.
[2019-08-13] MEDS: CLINDAMYCIN 600 MG in DEXTROSE 5% IN WATER 50 ML IVPB SCH ×4 (09:44→18:50)
[2019-08-13] MEDS: ASPIRIN 81 MG PO SCH (09:44)
[2019-08-13] MEDS: PANTOPRAZOLE 40 MG/10 ML VIAL IV SCH (09:44)
[2019-08-13] MEDS: CHLORHEXIDINE GLUCONATE 15 ML CUP MUCOUS MEM SCH ×2 (09:44→20:09)
[2019-08-13] MEDS: AMIODARONE 200 MG TAB PO SCH ×2 (09:44→20:09)
[2019-08-13] MEDS: METOPROLOL TARTRATE 50 MG TAB PO SCH ×2 (09:45→18:51)
[2019-08-13] MEDS: VALPROIC ACID ORAL SOLN 250 MG/5 ML CUP OG-TUBE SCH (10:50)
--- NOTE | 2019-08-13 13:06 | P.PN ---
Subjective Progress Note Date: 08/13/19 Principal diagnosis: Acute hypoxic and hypercapnic respiratory failure, secondary to aspiration pneumonia. 62-year-old male patient who was brought into the emergency department today unresponsive and profoundly hypoxic. The patient was in acute hypoxic respiratory failure. Initial pulse ox was in the mid 30s. Apparently he was not also communicating or responding. He was apparently awake and alert on the morning prior to him coming to the hospital according to the landlord. The landlord noted that the patient was appearing ill and called EMS. Upon EMS arrival, the patient was found to be obtunded. He had a fever of 10 1F. He was found to be hypoxic, brought into the emergency room he was found to be tachycardic and hypoxic with was placed on supplemental oxygen without any benefit and ultimately the patient was intubated and placed on a mechanical ventilator. COVID 19 is suspected. The patient was placed on the opposite isolation. The patient had the appropriate nasal swabs. Chest x-ray showed bilateral airspace disease consistent with pneumonia in addition to interstitial pneumonitis. ET tube was around 3.7 cm above the mario. NG tube was extending into the left abdomen. There was a right upper lobe consolidation noted and a tiny right-sided pleural effusion. No evidence of any pneumothorax. There was bilateral infiltrates and coarse interstitium and a prosthetic left shoulder. The patient has a white cell count of 4.9. He had some lymphopenia. His platelet counts is no within normal limits. The blood gases was done on 100% nonrebreather showed a pH of 7.17 with a pCO2 of 66 and pO2 of 45. The patient also had an acute kidney injury with a creatinine of 1.65. Epigastric level was at 3.1. The ALT is at 1106 with an ammonia level of 146 and a bilirubin of 0.5 and an albumin of 4.1. The serum alcohol was negative and the patient has negative salicylates and acetaminophen. Influenza screen has been negative. Covid 19 analysis still pending for now. This patient lives with a sister in a house and he collects Social Security disability. He has had issues with mental health and the patient has been dealing with bipolar disorder and chronic insomnia of many years duration. He has also chronic anxiety disorder. No history of any previous suicidal ideation or intent. No delusions or hallucinations based on recent psychiatric evaluation that was in the hospital. On today's evaluation of 62,020 the patient is being seen in follow-up in the intensive care unit. Noted the patient is intubated on a mechanical ventilator and is suspected to have Covid 19. He is afebrile on today's evaluation. He remains on a mechanical ventilator. He is sedated with propofol running at 20 mg per KG per minute. He was given a total of 5 L of IV fluid as the patient was hypotensive and currently the fluid is running at 75 mL an hour of normal saline. He remains on norepinephrine infusion at 0.08 mg per KG per minute. He remains on a mechanical ventilator. His assist-control mode at the rate of 28 with a tidal volume of 450 and FiO2 of 60% with a PEEP of 15. His blood gases showed a pH of 7.12 with a pCO2 of 58 and pO2 of 187. This was done and FiO2 of 100%. Otherwise, the patient has blood abnormalities it is consistent with Covid 19 infection. He has a rhabdomyolysis with a CPK level of 6114. He has also transaminitis with a AST of 3354, ALT of 1962, and his LDH level is at 8367. His creatinine is at 1.2, which is up from a baseline of 1.65 with fluid resuscitation. His current minute ventilation is 13 L. I made recommendations to keep the same vent setting. Based on the blood on of some non-anion gap metabolic acidosis, and with recommendations to start the patient on bicarb infusion and addition to 2 A of IV bicarb pushes. He was having temperatures throughout the night with temperature maximum 100.8. Current temperature is 99.6. He'll be started on enteral feeding for nutritional support. Covid 19 evaluation is still pending for now. On today's evaluation of 08/07/2019 and seeing this patient for a follow-up. The patient has sedated with propofol. He was given a sedation holiday yesterday and his neurologic exam was suboptimal as the patient did not show adequate neurologic recovery. Based on that, a CAT scan of the brain was done and the CAT scan of the brain was negative for any acute abnormalities. Noted the patient was profoundly hypoxic and at time of admission to the hospital and there is a suspicion for hypoxic encephalopathy. Contrary to my expectations, the patient checked negative for Covid 19 infection. The blood culture came back positive for staph aureus. Currently is on a combination of cefepime and vancomycin. The patient was resuscitated with more than 5 L of normal saline and the patient is also requiring some pressors for hemodynamic support and levo fed was started and 8 on was placed on hold as of 5:00 this morning. Urine output in the order of 40 mL an hour. In terms of sedation, the patient is on propofol at 20 g per KG per minute. Note that the patient had issues with a significant leak around his orotracheal tube. This was replaced yesterday by BLOCK SEALER without any major difficulties. This morning, he remains on a VC plus mode with a rate of 28 and a tidal volume of 450 and a nighttime of 1 second with a PEEP of 15 with an FiO2 of 50%. Blood gases from today showed a pH of 7.36 with a pCO2 of 37 and pO2 of 92. Chest x-ray showing diffuse bilateral pulmonary infiltrates. His cardiac rhythm is still in atrial fibrillation. He is on amiodarone maintenance at 0.5 mg per minute. The patient has a creatinine of 1 .5. There is still evidence of transaminitis with elevation of the AST and ALP and both are improving. LDH level is elevated at 5738. CPKs improving at 2431. C-reactive protein is elevated at 622. Note that the LDH is on the decline, CPKs on the decline on today's evaluation. LFTs are also improving. On 08/08/2019 on seeing this patient for a follow-up. The patient has been off sedation since yesterday. I am not seeing an adequate neurologic recovery in this patient. There may be a component of hepatic encephalopathy in the patient's went into shock liver. Nevertheless, his ammonia is dropping. He is on lactulose. He is producing adequate amount of bowel activity. He is undergo ing training the painful stimulation. Pupils are about 3 mm in size and there is C-reactive to light. There is a very weak cough and a gag. Absolutely no response to deep painful stimulation. No seizure activity has been noted. Neurology will be consulted on the case. EEG will be ordered. Meanwhile, the patient is clearly becoming a case of possible aspiration staphylococcal pneumonia. His blood culture came back positive for staph aureus. His sputum positive for staph. He also has gram-negative bacillus in his sputum which shirt turner to be E. coli. For now, the cultures and the blood to be MSSA. The patient was on examination of cefepime and vancomycin. I dropped the cefepime and I utilized Zosyn to give him better anaerobic coverage as the patient clearly has a history of aspiration. Meanwhile, the Covid test came back negative. The patient remains on a mechanical ventilator. On today's chest x-ray there is worsening over the bilateral pulmonary infiltrates worse on the right. ET tube remains in a good location. The patient remains on an assist-control mode at the rate of 18 with a tidal volume of 450 and FiO2 of 50% with a PEEP of 10. Blood gas showed a pH of 7.46 with a pCO2 of 34 and pO2 of 103. CVP is ranging between 12 and 14. He remains in atrial fibrillation. He is on amiodarone drip maintenance at 0.5 mg per minute. He is also on normal saline at the rate of 75 mL an hour. His age fibrillation is under better control and he is on no pressors. He can tolerate beta blockers. He is having low-grade fever still. The white cell count is up to 22. The shock liver is improving including the AST and ALP level. The LDH level was elevated. The CPKs also improving is down to 2431. His ammonia level is down to 85. His coagulation profile is within normal limits. On 08/09/2019 the patient is being seen in follow-up in intensive care unit. Unfortunately, the patient has been off sedation for more than 24 hours and the patient is still not showing significant neurologic recovery. The patient is not following any specific commands. In fact he is not even withdrawing to deep painful stimulation. No seizure activity has been noted. EEG was done and showed diffuse slowing and it was consistent with severe encephalopathy which could be toxic metabolic encephalopathy versus hypoxic encephalopathy. The patient will be kept off sedation. Meanwhile, the ammonia level is progressively coming down and is down to 58. He continues to have a week cough and gag reflex. The patient remains in atrial fibrillation. The patient remained on assist control mode of ventilation. He is on VC plus mode at the rate of 28 with a tidal volume of 450 and FiO2 of 50% with a PEEP of 10. The blood gases from today shows a component of respiratory alkalosis with a pH of 7.5 with a pCO2 of 36 and pO2 of 71. The white cell count of 23. The patient has developed some hyperchloremic hypernatremia in the sodium level is up to 147 with a chloride of 114. Renal function is stable. The patient is receiving vital high protein at the rate of 52 mL an hour. In terms of atrial fibrillation, I had utilized back the amiodarone drip at 0.5 mg per minute and the patient is also on metoprolol 50 mg by mouth 3 times a day. Heart rate is still slightly tachycardic and will continue the same regimen for now. The patient was given a dose of Lasix yesterday. The patient Is producing better urine output for now. His weight is still up. The CPKs down to 395. The AST is down to 1000. ALT is down to 58. LDH is down to 03/10/2007. Calcium level at 7.1. No other significant issues otherwise over the past 24 hours. He remains on a combination of Zosyn and vancomycin. The blood culture and the sputum culture was positive for MSSA. The sputum culture was positive for E. coli. The chest x-ray still showing rather consolidation worse on the right compared to the left. ET tube remains in a good location. On 08/10/2019 the patient has been approximately 72 hours of sedation. Unfortunately, we do not see any significant neurologic recovery the patient's condition. He is still not responding to any verbal or deep painful stimulatio n. He remains completely unresponsive. On this morning, I have a mild assist- control mode of ventilation with a VC plus mode at a tidal volume of 450 FiO2 of 50% with a PEEP of 10 and the respiratory rate of 24. His blood gases showed a component of respiratory alkalosis. His pH is at 7.53 with a pCO2 of 39 pO2 of 63. Chest x-ray still showing bilateral pneumonia bilateral airspace disease wo rse on the right along with cardiomegaly and bilateral pleural effusions. ET tube is in a good location. The patient's white cell count is at 27. The patient is still having episodes of fever. Most recent blood culture from 2 days ago was positive for MSSA and MSSA was also cultured and his lungs and it was cultured also E. coli in his lungs. We are still thinking that this was an aspiration pneumonia. Shock liver, his LFTs are nearly normalized, severe has also dropped and ammonia level is being monitored is still elevated at 83. The lactulose was held as the patient was having liquidy stool and the patient had become also hyperchloremic and the sodium level is up to 149. He is receiving free water supplements with NG for now. He is also on vital high protein. In terms of his atrial fibrillation, rate is under better control with a combination of amiodarone maintenance of 0.5 mg per minute and Cardizem drip at 10 mg an hour. The patient is also on IV heparin. The active issue for now is his altered mentation. On 08/11/2019, I'm seeing the patient for a follow-up in intensive care unit. His been off sedation for the past 92 hours. On today's evaluation that is some slight grimacing upon very deep painful stimulation and upon pinching on his upper chest. For the most part he remains unresponsive. No seizure activity. Shock liver has recovered. Ammonia level is on the decline. I started the patient on rifixamine 550 mg by mouth twice a day yesterday and ammonia level is down to 45. I suspect a component of hypoxic encephalopathy although the possibility of metabolic encephalopathy cannot be completely ruled out. He is on a mechanical ventilator. No change in the vent setting. No changes in the x-ray findings as the patient has extensive airspace disease bilaterally more so on the right lower lobe. On the ventilator, the patient is on a VC plus mode with a tidal volume of 450 and FiO2 of 50% with a PEEP of 10 and tidal volume of 450 with a rate of 16. The patient's blood gas showed a pH of 7.52 with a pCO2 of 39 and pO2 of 67. On and off he was still having fever yesterday. Repeat blood cultures were sent. He remains on examination Zosyn and vancomycin. He is tolerating his enteral feeding for nutritional support. Is on IV heparin d rip regarding his atrial fibrillation. He remains on amiodarone drip and oral metoprolol for rate control. He is also started on Cleviprex which is running at 2 mg an hour for tighter blood pressure control. The active issue remains his altered mentation with a possibility of him having hypoxic encephalopathy with the details as mentioned above. Patient was reevaluated today on 08/12/19, remains on mechanical ventilation, his ventilator settings are assist control rate 16 volume control plus at 450 FiO2 at 50% and PEEP of 10. ABG showed a pO2 of 79 pCO2 of 39 pH of 7.52. Chest x- ray continues to show bilateral pleural effusions, and by basilar space disease, hence I recommended ultrasound to evaluate for possible thoracentesis if the effusion isn't large enough to be drained. However the ultrasound showed minimal pleural effusions bilaterally, insufficient for thoracentesis. Patient remains on Zosyn and vancomycin, and he hasn't MSSA bacteremia, sputum is positive for E. coli and staph aureus. Neurologically the patient is about the same, however the only change noted today is the fact that the patient tries to open his eyes and grimacing upon deep painful stimuli. Remains off narcotics and sedatives. WBC count is up to 25.3 today slightly improved compared to yesterday. Basic metabolic profile is basically normal and his BUN is improving down to 38 creatinine is 0.55. Liver enzymes are steadily improving. Ammonia is 60 today. It was as high as 146 about a week ago remains on rifaximin. Reevaluated today on, patient remains in the ICU, intubated and mec hanically ventilated. Yesterday the patient had significant agitation and he had to be placed back on propofol. This morning the propofol was discontinued, and the patient seems to be more responsive to stimuli/verbal stimuli patient is opening his eyes, wiggling his toes, seems to be slow but at least the best I have seen him so far. Hence I kept the propofol off, and I will give the patient a chance to go on a weaning trial if possible. He is not quite ready to start weaning but we will continue to hold propofol and address hourly today for possible placement on pressure support and CPAP. Presently the patient is on mechanical ventilation with assist control rate of 16, volume is 450 FiO2 dropped down from 60% to 50% and his PEEP was decreased to 8. His ABG this morning showed a pO2 of 124 pCO2 of 48 pH of 7.44 patient is on propofol which is presently on hold. He is on clindamycin and for his MSSA bacteremia. He is on enteral tube feeding. Chest x-ray continues to show small areas of pneumonia bilaterally, and possibly a small right sided pleural effusion not large enough to consider thoracentesis as noted on ultrasound Objective - Vital Signs Vital signs: Vital Signs Temp 98.1 F 08/13/19 08:00 Pulse 68 08/13/19 11:00 Resp 20 08/13/19 11:26 BP 131/62 08/13/19 11:00 Pulse Ox 96 08/13/19 11:00 Intake & Output 08/12/19 08/13/19 08/13/19 18:59 06:59 18:59 Intake Total 1404 1757.325 643 Output Total 1790 700 700 Balance -386 1057.325 -57 Weight 107.2 kg 107.3 kg Intake: IV 578 532 380 Clindamycin 600 mg In 50 50 100 Dextrose 5% in Water 50 ml @ 50 mls/hr IVPB Q8HR [facility] Rx#:[id number] Piperacillin-Tazobactam 3 100 .375 gm In Sodium Chloride 0.9% 100 ml @ 25 mls/hr IVPB Q8HR [facility] Rx# :[id number] Pressure bag 78 72 30 Sodium Chloride 0.9% 1, 300 360 150 000 ml @ 10 mls/hr IV . Q24H [facility] Rx#:[id number] ceFAZolin 2 gm In Sodium 50 50 100 Chloride 0.9% 50 ml @ 100 mls/hr IVPB Q8HR [facility] Rx# :[id number] Intake, IV Titration 250 73.325 Amount Heparin Sod,Pork in 0.45% 250 NaCl 25,000 unit In 0.45 % NaCl 1 250ml.bag @ 12 UNITS/KG/HR 12.732 mls/hr IV .[id number] [facility] Rx#: [id number] Propofol 1,000 mg In 73.325 Empty Bag 1 bag @ Titrate IV .Q0M [facility] Rx#: [id number] Oral 50 50 Tube Feeding 426 852 213 Other 100 300 Output: Urine 1190 700 300 Stool 600 400 Other: Voiding Method Indwelling Catheter Indwelling Catheter Indwelling Catheter ABP, PAP, CO, CI - Last Documented Arterial Blood Pressure 184/62 - Exam Gen. appearance, revealed 64-year-old white male intubated on mechanical jacky tilation. Bit more responsive today to verbal stimulation. Head: Atraumatic normocephalic. EENT: PERRLA, EOMI, no icterus, no neck masses, no JVD, no stridor, endotracheal tube and orogastric tube are intact. Lungs: Symmetrical chest expansion, crackles at the bases no rhonchi and no wheezes. Cardiac exam : Normal S1 and S2, no S3 gallop. No murmur. Abdominal exam: Soft nontender no megaly no rebound no guarding. Examination: No clubbing edema or cyanosis. Examination: No rashes Neurologically opens eyes, wiggles toes, squeezes hands. Psychiatric: Could not be assessed. - Labs CBC & Chem 7: 08/13/19 04:15 08/13/19 04:15 Labs: Abnormal Lab Results - Last 24 Hours (Table) 08/12/19 08/12/19 08/13/19 Range/Units 17:00 23:17 04:15 WBC (3.8-10.6) k/uL RBC (4.30-5.90) m/uL Hgb (13.0-17.5) gm/dL Hct (39.0-53.0) % RDW (11.5-15.5) % Neutrophils # (1.3-7.7) k/uL APTT 51.8 H (22.0-30.0) sec ABG pCO2 (35-45) mmHg ABG pO2 (83-108) mmHg ABG HCO3 (21-25) mmol/L ABG Total CO2 (19-24) mmol/L Potassium (3.5-5.1) mmol/L Chloride (98-107) mmol/L Carbon Dioxide (22-30) mmol/L BUN (9-20) mg/dL Creatinine (0.66-1.25) mg/dL Glucose (74-99) mg/dL POC Glucose (mg/dL) 127 H 185 H (75-99) mg/dL Calcium (8.4-10.2) mg/dL AST (17-59) U/L ALT (4-49) U/L Total Protein (6.3-8.2) g/dL Albumin (3.5-5.0) g/dL 08/13/19 08/13/19 08/13/19 Range/Units 04:15 04:15 05:27 WBC 24.1 H (3.8-10.6) k/uL RBC 3.91 L (4.30-5.90) m/uL Hgb 10.5 L (13.0-17.5) gm/dL Hct 33.3 L (39.0-53.0) % RDW 17.1 H (11.5-15.5) % Neutrophils # 21.5 H (1.3-7.7) k/uL APTT (22.0-30.0) sec ABG pCO2 (35-45) mmHg ABG pO2 (83-108) mmHg ABG HCO3 (21-25) mmol/L ABG Total CO2 (19-24) mmol/L Potassium 3.4 L (3.5-5.1) mmol/L Chloride 110 H (98-107) mmol/L Carbon Dioxide 31 H (22-30) mmol/L BUN 44 H (9-20) mg/dL Creatinine 0.58 L (0.66-1.25) mg/dL Glucose 158 H (74-99) mg/dL POC Glucose (mg/dL) 148 H (75-99) mg/dL Calcium 7.7 L (8.4-10.2) mg/dL AST 95 H (17-59) U/L ALT 162 H (4-49) U/L Total Protein 5.0 L (6.3-8.2) g/dL Albumin 2.1 L (3.5-5.0) g/dL 08/13/19 Range/Units 07:34 WBC (3.8-10.6) k/uL RBC (4.30-5.90) m/uL Hgb (13.0-17.5) gm/dL Hct (39.0-53.0) % RDW (11.5-15.5) % Neutrophils # (1.3-7.7) k/uL APTT (22.0-30.0) sec ABG pCO2 48 H (35-45) mmHg ABG pO2 124 H (83-108) mmHg ABG HCO3 33 H (21-25) mmol/L ABG Total CO2 34 H (19-24) mmol/L Potassium (3.5-5.1) mmol/L Chloride (98-107) mmol/L Carbon Dioxide (22-30) mmol/L BUN (9-20) mg/dL Creatinine (0.66-1.25) mg/dL Glucose (74-99) mg/dL POC Glucose (mg/dL) (75-99) mg/dL Calcium (8.4-10.2) mg/dL AST (17-59) U/L ALT (4-49) U/L Total Protein (6.3-8.2) g/dL Albumin (3.5-5.0) g/dL Microbiology - Last 24 Hours (Table) 08/10/19 09:18 Blood Culture - Preliminary Blood No Growth after 72 hours 08/10/19 09:08 Blood Culture - Preliminary Blood No Growth after 72 hours 08/09/19 11:31 Blood Culture - Preliminary Blood No Growth after 72 hours Assessment and Plan Assessment: Impression: Acute hypoxic and hypercapnic respiratory failure. Suspect aspiration pneumonia. MSSA bacteremia Acute kidney injury, improving. Secondary to acute sepsis. Acute sepsis, and acute lactic acidosis on presentation. Chronic psychiatric disorder/bipolar disorder. Dyslipidemia. Benign essential hypertension. Shock liver. Acute rhabdomyolysis, resolved Pulmonary hypertension. Staph aureus septicemia, MSSA. Hyperchloremic hypernatremia secondary to diarrhea and intravascular volume depletion. Improved with D5W. Acute hepatic/metabolic encephalopathy, Recommendation: Continue ventilatory support Continue to hold propofol and consider a weaning trial on pressure support and CPAP if possible today. Continue nutritional support/enteral feeding. Continue GI and DVT prophylaxis.. Continue antibiotics. Presently on clindamycin and Continue amiodarone. Continue metoprolol. Continue IV heparin for atrial fibrillation/chronic Continue to monitor renal and liver profile. Continue to monitor ammonia level. Continue to monitor neurological status and hepatic encephalopathy. Prognosis remains guarded. Critical care time is 35 minutes. Time with Patient: Greater than 30
[2019-08-13] MEDS: SODIUM CHLORIDE 0.9% 1,000 ML IV SCH (13:31)
[2019-08-13 13:46] LABS: Glucose,Whole Blood 132 mg/dL (75-99)
--- NOTE | 2019-08-13 14:47 | PN ---
PROGRESS NOTE DATE OF SERVICE: 08/13/2019 REASON FOR FOLLOWUP: Pneumonia, aspiration and Staph aureus bacteremia. INTERVAL HISTORY: The patient is currently afebrile. The patient is hemodynamically stable, not on pressor support. The patient is slowly waking up and has been following some simple commands per the RN. FiO2 is currently 50%. No significant purulent secretion in the ET. Diarrhea has slowed down. PHYSICAL EXAMINATION: Blood pressure 134/67, pulse of 73, temperature 98.2. He is 95% on 50% FiO2. General description is a middle-aged male, intubated on the vent. RESPIRATORY SYSTEM: Unlabored breathing, clear to auscultation anteriorly. HEART: S1, S2. Regular rate and rhythm. ABDOMEN: Soft, no tenderness. LABS: Hemoglobin is 10.5, white count 4.1, BUN of 44, creatinine 0.58. DIAGNOSTIC IMPRESSION AND PLAN: Patient with acute respiratory failure which is multifactorial in this patient have a component of pneumonia. Plan is to continue the patient on the cefazolin and clindamycin and monitor clinical course closely. Continue supportive care. MMODL / IJN: [id number] /
--- NOTE | 2019-08-13 18:30 | P.PN ---
Subjective Patient is admitted for acute hypoxic and hypercapnic respiratory failure which was believed to be secondary to Covid 19 pneumonia patient is presently on FiO2 of 60%. Patient does have related troponin by highly elevated be high d-dimer is of which patient is on anti-correlation dose of the Lovenox. Patient scored 19 is pending patient has chest x-ray findings consistent with the pulmonary edema or atypical pneumonia or Covid 19 pneumonia along with the significant transaminitis elevated highly elevated LDH highly elevated. Ferritin and si gnificant lymphopenia ration continues to have fever. Patient also has acute renal failure secondary to possibly acute tubular necrosis patient is on sodium bicarbonate and D5 because of hyperkalemia. 08/07/2019 Patient the white blood cell count went up to 17,000. His blood cultures are positive for staph aureus we'll repeat the blood cultures tomorrow. Patient liver enzymes are elevated because of shock liver ultrasound did not show significant abnormality. Patient had an elevated ammonia yesterday which is actually better now after lactulose, patient is off pressors. Patient remains on amiodarone. Computed tomography scan of the brain did not show any significant abnormality patient Covid 19 is negative patient remains on cefepime and vancomycin. Primary source is probably lung. Patient has fairly good urine output at 400 mL per hour on volume control ventilation set up respiratory rate of 28 total volume of 450 PEEP of 15 episode of 50% patient's hypercapnic respiratory failure improved and hypoxic respiratory failure improved patient has pH of 7.36 pCO2 of 37 08/07/2028 patient doesn't have any significant clinical improvement remains bacteremic repeat blood cultures are being obtained for today and tomorrow as well. Patient has staph aureus in the blood patient probably will need the transesophageal echocardiogram. Patient is off sedation but is not arousable yet because of which neurology is evaluating the patient and patient is getting EEG patient remains on Vanco mycin cefepime was switched to Zosyn because of concern for aspiration patient aspirin cultures are positive for staph aureus and E. coli along with the species infectious disease is following the patient as well. 08/09/2019 She is still the remains is severely encephalopathic and it and the just withdrawing from painful stimuli off sedation for about 2 days. Patient has severe toxic and metabolic encephalopathy patient is mildly alkalotic patient's present tidal volume is 450 and set up respiratory rate was Down now and patient is breathing over the ventilator and is breathing at around 24/m on an average. FiO2 of 50% PEEP of 10. Patient liver enzymes are bit better patient remains on Zosyn and vancomycin probably vancomycin can be discontinued as patient has MSSA in the blood cultures. Infectious disease is following the patient. Patient white blood cell count remains high patient eventually will need a BRENDA to rule out endocarditis, will plan on this if he has some response on the antibiotics and less encephalopathic and if there is any improvement 08/10/2019 No significant change in his clinical condition including his mental status which it has not improved at patient is hyponatremic because of IV fluids patient is on D5 water now because of hypernatremia and hyperchloremia. Patient remains in the same vent settings as as today remains bacteremic prognosis is extremely poor. Tomorrow we'll discuss with the family regarding overall goals of care. Patient is presently not on pressor support serum creatinine remains stable patient is on amiodarone for atrial fibrillation patient will need repeat blood cultures again tomorrow patient is having thick secretions from the endotracheal to. Patient is presently on Zosyn and vancomycin, rifampin was added patient was started on daily. 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 There is no chance of reasonable neurological recovery she wants to make him comfort care at that time. Patient remains on clevidipine. Patient last 2 blood cultures are negative. 08/11/2022 Patient is still on ventilator support patient the blood cultures are negative so far his bacteremia secondary to pneumonia. Patient is bit more responsive and response to 2 painful stimuli. White blood cell count started improving patient overall has some improvement has good urine output. 08/13/2019 Patient has significant improvement competitors. Patient is much more awake will undergo repeat cultures tomorrow Review Of systems: Unable to obtain due to his clinical condition. All inpatient medications were reviewed and appropriate changes in these medications as dictated in the interval history and assessment and plan. Objective - Vital Signs Vital signs: Vital Signs Temp 98.6 F 08/13/19 16:00 Pulse 76 08/13/19 18:00 Resp 16 08/13/19 18:00 BP 150/67 08/13/19 18:00 Pulse Ox 97 08/13/19 17:00 Intake & Output 08/12/19 08/13/19 08/13/19 18:59 06:59 18:59 Intake Total 1404 1757.325 840 Output Total 5227 096 1236 Balance -386 1057.325 -210 Weight 107.2 kg 107.3 kg Intake: IV 578 532 506 Clindamycin 600 mg In 50 50 100 Dextrose 5% in Water 50 ml @ 50 mls/hr IVPB Q8HR [facility] Rx#:[id number] Piperacillin-Tazobactam 3 100 .375 gm In Sodium Chloride 0.9% 100 ml @ 25 mls/hr IVPB Q8HR [facility] Rx# :[id number] Pressure bag 78 72 66 Sodium Chloride 0.9% 1, 300 360 240 000 ml @ 10 mls/hr IV . Q24H [facility] Rx#:[id number] ceFAZolin 2 gm In Sodium 50 50 100 Chloride 0.9% 50 ml @ 100 mls/hr IVPB Q8HR [facility] Rx# :[id number] Intake, IV Titration 250 73.325 Amount Heparin Sod,Pork in 0.45% 250 NaCl 25,000 unit In 0.45 % NaCl 1 250ml.bag @ 12 UNITS/KG/HR 12.732 mls/hr IV .[id number] [facility] Rx#: [id number] Propofol 1,000 mg In 73.325 Empty Bag 1 bag @ Titrate IV .Q0M [facility] Rx#: [id number] Oral 50 50 Tube Feeding 426 852 284 Other 100 300 Output: Urine 1190 700 650 Stool 600 400 Other: Voiding Method Indwelling Catheter Indwelling Catheter Indwelling Catheter ABP, PAP, CO, CI - Last Documented Arterial Blood Pressure 197/69 - Exam PHYSICAL EXAMINATION: GENERAL: Patient is intubated sedated and vented to settings as mentioned above patient is a FiO2 of 50% PEEP of 15 pedal volume of 450 set up respiratory rate of 28 assist-control ventilation. A HEENT: Pupils are round and equally reacting to light. EOMI. No scleral icterus. No conjunctival pallor. Normocephalic, atraumatic. No pharyngeal erythema. No thyromegaly. CARDIOVASCULAR: S1 and S2 present. No murmurs, rubs, or gallops. PULMONARY: Chest is clear to auscultation, no wheezing or crackles. ABDOMEN: Soft, nontender, nondistended, normoactive bowel sounds. No palpable organomegaly. MUSCULOSKELETAL: No joint swelling or deformity. EXTREMITIES: No cyanosis, clubbing, or pedal edema. NEUROLOGICAL: Gross neurological examination did not reveal any focal deficits. SKIN: No rashes. - Labs CBC & Chem 7: 08/13/19 04:15 08/13/19 04:15 Labs: Abnormal Lab Results - Last 24 Hours (Table) 08/12/19 08/13/19 08/13/19 Range/Units 23:17 04:15 04:15 WBC (3.8-10.6) k/uL RBC (4.30-5.90) m/uL Hgb (13.0-17.5) gm/dL Hct (39.0-53.0) % RDW (11.5-15.5) % Neutrophils # (1.3-7.7) k/uL APTT 51.8 H (22.0-30.0) sec ABG pCO2 (35-45) mmHg ABG pO2 (83-108) mmHg ABG HCO3 (21-25) mmol/L ABG Total CO2 (19-24) mmol/L Potassium 3.4 L (3.5-5.1) mmol/L Chloride 110 H (98-107) mmol/L Carbon Dioxide 31 H (22-30) mmol/L BUN 44 H (9-20) mg/dL Creatinine 0.58 L (0.66-1.25) mg/dL Glucose 158 H (74-99) mg/dL POC Glucose (mg/dL) 185 H (75-99) mg/dL Calcium 7.7 L (8.4-10.2) mg/dL AST 95 H (17-59) U/L ALT 162 H (4-49) U/L Total Protein 5.0 L (6.3-8.2) g/dL Albumin 2.1 L (3.5-5.0) g/dL 08/13/19 08/13/19 08/13/19 Range/Units 04:15 05:27 07:34 WBC 24.1 H (3.8-10.6) k/uL RBC 3.91 L (4.30-5.90) m/uL Hgb 10.5 L (13.0-17.5) gm/dL Hct 33.3 L (39.0-53.0) % RDW 17.1 H (11.5-15.5) % Neutrophils # 21.5 H (1.3-7.7) k/uL APTT (22.0-30.0) sec ABG pCO2 48 H (35-45) mmHg ABG pO2 124 H (83-108) mmHg ABG HCO3 33 H (21-25) mmol/L ABG Total CO2 34 H (19-24) mmol/L Potassium (3.5-5.1) mmol/L Chloride (98-107) mmol/L Carbon Dioxide (22-30) mmol/L BUN (9-20) mg/dL Creatinine (0.66-1.25) mg/dL Glucose (74-99) mg/dL POC Glucose (mg/dL) 148 H (75-99) mg/dL Calcium (8.4-10.2) mg/dL AST (17-59) U/L ALT (4-49) U/L Total Protein (6.3-8.2) g/dL Albumin (3.5-5.0) g/dL 08/13/19 Range/Units 13:45 WBC (3.8-10.6) k/uL RBC (4.30-5.90) m/uL Hgb (13.0-17.5) gm/dL Hct (39.0-53.0) % RDW (11.5-15.5) % Neutrophils # (1.3-7.7) k/uL APTT (22.0-30.0) sec ABG pCO2 (35-45) mmHg ABG pO2 (83-108) mmHg ABG HCO3 (21-25) mmol/L ABG Total CO2 (19-24) mmol/L Potassium (3.5-5.1) mmol/L Chloride (98-107) mmol/L Carbon Dioxide (22-30) mmol/L BUN (9-20) mg/dL Creatinine (0.66-1.25) mg/dL Glucose (74-99) mg/dL POC Glucose (mg/dL) 132 H (75-99) mg/dL Calcium (8.4-10.2) mg/dL AST (17-59) U/L ALT (4-49) U/L Total Protein (6.3-8.2) g/dL Albumin (3.5-5.0) g/dL Microbiology - Last 24 Hours (Table) 08/09/19 11:31 Blood Culture - Preliminary Blood No Growth after 96 hours 08/10/19 09:18 Blood Culture - Preliminary Blood No Growth after 72 hours 08/10/19 09:08 Blood Culture - Preliminary Blood No Growth after 72 hours Assessment and Plan Plan: Acute hypoxic and hypercapnic respiratory failure secondary to sepsis from a staphylococcal bacteremia possible COPD exacerbation. Continue ventilator support with the above-mentioned vent settings continue with inhalational treatments His blood cultures remained positive persistent bacteremia with MSSA. Patient patient will be switched to cefazolin and clindamycin, which provides double coverage for MSSA and also covers aspiration pneumonia if any. -Sepsis shock shock resolved y secondary to staphylococcal pneumonia, patient has persistent bacteremia -Severe toxic encephalopathy from sepsis and septic shock -Acute renal failure possibly acute tubular necrosis patient creatinine improved with IV fluids -Lactic acidosis secondary to sepsis Hypernatremia and hyperchloremia secondary to normal saline which was discontinued and patient received Lasix yesterday. -Hypertension -Hyperlipidemia next and heparin hypertension -Elevated liver enzymes probably secondary to shock liver. -Hepatic encephalopathy: Ammonia level is bit better now. -Troponin leak secondary to myocardial injury from sepsis. -Severe pulmonary hypertension
[2019-08-13] MEDS: hydrALAZINE HCL 20 MG/ML 1 ML VIAL IVP PRN (20:09)
[2019-08-13] MEDS: FUROSEMIDE 10 MG/ML 4 ML VIAL IV SCH (20:09)
[2019-08-13] MEDS: HYDROmorphone 1 MG/ML 1 ML SYRINGE IVP PRN ×2 (20:36→23:11)
[2019-08-14] MEDS: CLINDAMYCIN 600 MG in DEXTROSE 5% IN WATER 50 ML IVPB SCH ×8 (00:34→22:29)
[2019-08-14] MEDS: METOPROLOL TARTRATE 50 MG TAB PO SCH ×4 (00:35→22:23)
[2019-08-14 01:05] LABS: Glucose,Whole Blood 125 mg/dL (75-99)
[2019-08-14] MEDS: INSULIN ASPART (NovoLOG) 100 UNIT/ML VIAL SQ SCH ×5 (03:07→18:07)
[2019-08-14] MEDS: HYDROmorphone 1 MG/ML 1 ML SYRINGE IVP PRN ×5 (03:08→22:30)
[2019-08-14 05:07] LABS: Glucose,Whole Blood 141 mg/dL (75-99)
[2019-08-14 05:22] LABS: Anisocytosis Slight; Basophils % (A) 0 %; Eosinophils # (A) 0.1 k/uL (0-0.7); Eosinophils % (A) 1 %; HCT 31.3 % (39.0-53.0); HGB 9.7 gm/dL (13.0-17.5); Hypochromasia Slight; Lymphocytes # (A) 1.1 k/uL (1.0-4.8); Lymphocytes % (A) 6 %; MCH 26.4 pg (25.0-35.0); MCHC 31.1 g/dL (31.0-37.0); MCV 84.7 fL (80.0-100.0); Mean Platelet Volume 8.5; Monocytes # (A) 0.6 k/uL (0-1.0); Monocytes % (A) 3 %; Neutrophils # (A) 16.7 k/uL (1.3-7.7); Neutrophils % (A) 89 %; Platelet Count 228 k/uL (150-450); RDW 17.5 % (11.5-15.5); WBC 18.7 k/uL (3.8-10.6)
[2019-08-14 05:44] LABS: African American GFR (CKD) >90 (>60 ml/min/1.73 sqM); Anion Gap 2 mmol/L; Blood Urea Nitrogen 37 mg/dL (9-20); Calcium 7.5 mg/dL (8.4-10.2); Carbon Dioxide 32 mmol/L (22-30); Chloride 108 mmol/L (98-107); Glucose 140 mg/dL (74-99); Non-African American GFR(CKD) >90 (>60 ml/min/1.73 sqM); Potassium 3.3 mmol/L (3.5-5.1); Sodium 142 mmol/L (137-145)
[2019-08-14] MEDS: POTASSIUM BICARBONATE/CIT AC 20 MEQ TABLET.EFF NG-TUBE SCH ×2 (06:03→06:19)
--- NOTE | 2019-08-14 07:14 | XR ---
EXAMINATION TYPE: XR chest 1V portable DATE OF EXAM: 08/14/2019 COMPARISON: 08/13/2019 HISTORY: Shortness of breath FINDINGS: There are bilateral pleural effusions with cardiomegaly and bibasilar infiltrate. There is a diffuse interstitial pattern. ET, NG tube, and central line stable. Postsurgical change left shoulder. Diffu se pleural-parenchymal changes unchanged. No pneumothorax. Heart size stable. IMPRESSION: 1. Diffuse pleural-parenchymal changes correlate for pulmonary edema, ARDS or diffuse pneumonia
[2019-08-14 07:39] LABS: ABG Base Excess 9.2 mmol/L; ABG HCO3 33 mmol/L (21-25); ABG Oxygen Saturation 97.9 % (94-97); ABG PCO2 45 mmHg (35-45); ABG PH 7.48 (7.35-7.45); ABG PO2 112 mmHg (83-108); ABG TCO2 34 mmol/L (19-24)
[2019-08-14 07:41] LABS: Allen Test Performed? no
[2019-08-14] MEDS: AMIODARONE 200 MG TAB PO SCH ×2 (08:35→20:30)
[2019-08-14] MEDS: FUROSEMIDE 10 MG/ML 4 ML VIAL IV SCH ×2 (08:35→20:30)
[2019-08-14] MEDS: PANTOPRAZOLE 40 MG/10 ML VIAL IV SCH (08:35)
[2019-08-14] MEDS: VALPROIC ACID ORAL SOLN 250 MG/5 ML CUP OG-TUBE SCH (08:35)
[2019-08-14] MEDS: ASPIRIN 81 MG PO SCH (08:35)
[2019-08-14] MEDS: CHLORHEXIDINE GLUCONATE 15 ML CUP MUCOUS MEM SCH ×2 (08:35→20:29)
[2019-08-14] MEDS: HEPARIN SOD,PORK IN 0.45% NACL 25,000 UNIT in 0.45% NACL 1 250ML.BAG IV SCH ×2 (09:22→20:29)
[2019-08-14] MEDS: CLEVIDIPINE BUTYRATE 25 MG in EMPTY BAG 1 BAG IV SCH (09:49)
[2019-08-14 11:56] LABS: Glucose,Whole Blood 118 mg/dL (75-99)
[2019-08-14] MEDS: SODIUM CHLORIDE 0.9% 1,000 ML IV SCH (11:57)
--- NOTE | 2019-08-14 13:56 | PN ---
PROGRESS NOTE DATE OF SERVICE: 08/14/2019 REASON FOR FOLLOWUP: Pneumonia and bacteremia. INTERVAL HISTORY: The patient is currently afebrile. The patient is hemodynamically stable, not on any pressor support. FiO2 is currently stable. He is more awake, alert and responding to some of stimuli. PHYSICAL EXAMINATION: Blood pressure 125/63 with a pulse of 67, temperature 98.8. He is 97% on 50% FiO2. General description is a middle-aged male, intubated on the vent. RESPIRATORY SYSTEM: Unlabored breathing, decreased breath sounds, no wheeze. HEART: S1, S2. Regular rate and rhythm. ABDOMEN: Soft, no tenderness. LABS: Hemoglobin is 10.7, white count 15.7, BUN of 37, creatinine 0.53. Blood culture repeat has been negative. DIAGNOSTIC IMPRESSION AND PLAN: Patient with acute respiratory failure which is multifactorial with a component of aspiration pneumonia and evidence of MSSA bacteremia. Repeat blood culture has been negative so far. The patient is covered with cefazolin and clindamycin that will be continued and will monitor his clinical course closely. MMODL / IJN: [id number] /
--- NOTE | 2019-08-14 14:11 | P.PN ---
Subjective Progress Note Date: 08/14/19 Principal diagnosis: Acute hypoxic and hypercapnic respiratory failure second to aspiration pneumonia 62-year-old male patient who was brought into the emergency department today unresponsive and profoundly hypoxic. The patient was in acute hypoxic respiratory failure. Initial pulse ox was in the mid 30s. Apparently he was not also communicating or responding. He was apparently awake and alert on the morning prior to him coming to the hospital according to the landlord. The landlord noted that the patient was appearing ill and called EMS. Upon EMS arrival, the patient was found to be obtunded. He had a fever of 10 1F. He was found to be hypoxic, brought into the emergency room he was found to be tachycardic and hypoxic with was placed on supplemental oxygen without any benefit and ultimately the patient was intubated and placed on a mechanical ventilator. COVID 19 is suspected. The patient was placed on the opposite isolation. The patient had the appropriate nasal swabs. Chest x-ray showed bilateral airspace disease consistent with pneumonia in addition to interstitial pneumonitis. ET tube was around 3.7 cm above the mario. NG tube was extending into the left abdomen. There was a right upper lobe consolidation noted and a tiny right-sided pleural effusion. No evidence of any pneumothorax. There was bilateral infiltrates and coarse interstitium and a prosthetic left shoulder. The patient has a white cell count of 4.9. He had some lymphopenia. His platelet counts is no within normal limits. The blood gases was done on 100% nonrebreather showed a pH of 7.17 with a pCO2 of 66 and pO2 of 45. The patient also had an acute kidney injury with a creatinine of 1.65. Epigastric level was at 3.1. The ALT is at 1106 with an ammonia level of 146 and a bilirubin of 0.5 and an albumin of 4.1. The serum alcohol was negative and the patient has negative salicylates and acetaminophen. Influenza screen has been negative. Covid 19 analysis still pending for now. This patient lives with a sister in a house and he collects Social Security disability. He has had issues with mental health and the patient has been dealing with bipolar disorder and chronic insomnia of many years duration. He has also chronic anxiety disorder. No history of any previous suicidal ideation or intent. No delusions or hallucinations based on recent psychiatric evaluation that was in the hospital. On today's evaluation of 62,020 the patient is being seen in follow-up in the intensive care unit. Noted the patient is intubated on a mechanical ventilator and is suspected to have Covid 19. He is afebrile on today's evaluation. He remains on a mechanical ventilator. He is sedated with propofol running at 20 mg per KG per minute. He was given a total of 5 L of IV fluid as the patient was hypotensive and currently the fluid is running at 75 mL an hour of normal saline. He remains on norepinephrine infusion at 0.08 mg per KG per minute. He remains on a mechanical ventilator. His assist-control mode at the rate of 28 with a tidal volume of 450 and FiO2 of 60% with a PEEP of 15. His blood gases showed a pH of 7.12 with a pCO2 of 58 and pO2 of 187. This was done and FiO2 of 100%. Otherwise, the patient has blood abnormalities it is consistent with Covid 19 infection. He has a rhabdomyolysis with a CPK level of 6114. He has also transaminitis with a AST of 3354, ALT of 1962, and his LDH level is at 8367. His creatinine is at 1.2, which is up from a baseline of 1.65 with fluid resuscitation. His current minute ventilation is 13 L. I made recommendations to keep the same vent setting. Based on the blood on of some non-anion gap metabolic acidosis, and with recommendations to start the patient on bicarb infusion and addition to 2 A of IV bicarb pushes. He was having temperatures throughout the night with temperature maximum 100.8. Current temperature is 99.6. He'll be started on enteral feeding for nutritional support. Covid 19 evaluation is still pending for now. On today's evaluation of 08/07/2019 and seeing this patient for a follow-up. The patient has sedated with propofol. He was given a sedation holiday yesterday and his neurologic exam was suboptimal as the patient did not show adequate neurologic recovery. Based on that, a CAT scan of the brain was done and the CAT scan of the brain was negative for any acute abnormalities. Noted the patient was profoundly hypoxic and at time of admission to the hospital and there is a suspicion for hypoxic encephalopathy. Contrary to my expectations, the patient checked negative for Covid 19 infection. The blood culture came back positive for staph aureus. Currently is on a combination of cefepime and vancomycin. The patient was resuscitated with more than 5 L of normal saline and the patient is also requiring some pressors for hemodynamic support and levo fed was started and 8 on was placed on hold as of 5:00 this morning. Urine output in the order of 40 mL an hour. In terms of sedation, the patient is on propofol at 20 g per KG per minute. Note that the patient had issues with a significant leak around his orotracheal tube. This was replaced yesterday by [employer] without any major difficulties. This morning, he remains on a VC plus mode with a rate of 28 and a tidal volume of 450 and a nighttime of 1 second with a PEEP of 15 with an FiO2 of 50%. Blood gases from today showed a pH of 7.36 with a pCO2 of 37 and pO2 of 92. Chest x-ray showing diffuse bilateral pulmonary infiltrates. His cardiac rhythm is still in atrial fibrillation. He is on amiodarone maintenance at 0.5 mg per minute. The patient has a creatinine of 1.5. There is still evidence of transaminitis with elevation of the AST and ALP and both are improving. LDH level is elevated at 5738. CPKs improving at 2431. C-reactive protein is elevated at 622. Note that the LDH is on the decline, CPKs on the decline on today's evaluation. LFTs are also improving. On 08/08/2019 on seeing this patient for a follow-up. The patient has been off sedation since yesterday. I am not seeing an adequate neurologic recovery in this patient. There may be a component of hepatic encephalopathy in the patient's went into shock liver. Nevertheless, his ammonia is dropping. He is on lactulose. He is producing adequate amount of bowel activity. He is undergoing training the painful stimulation. Pupils are about 3 mm in size and there is C-reactive to light. There is a very weak cough and a gag. Absolutely no response to deep painful stimulation. No seizure activity has been noted. Neurology will be consulted on the case. EEG will be ordered. Meanwhile, the patient is clearly becoming a case of possible aspiration staphylococcal pneumonia. His blood culture came back positive for staph aureus. His sputum positive for staph. He also has gram-negative bacillus in his sputum which turner in to be E. coli. For now, the cultures and the blood to be MSSA. The patient was on examination of cefepime and vancomycin. I dropped the cefepime and I u tilized Zosyn to give him better anaerobic coverage as the patient clearly has a history of aspiration. Meanwhile, the Covid test came back negative. The patient remains on a mechanical ventilator. On today's chest x-ray there is worsening over the bilateral pulmonary infiltrates worse on the right. ET tube remains in a good location. The patient remains on an assist-control mode at the rate of 18 with a tidal volume of 450 and FiO2 of 50% with a PEEP of 10. Blood gas showed a pH of 7.46 with a pCO2 of 34 and pO2 of 103. CVP is ranging between 12 and 14. He remains in atrial fibrillation. He is on amiodarone drip maintenance at 0.5 mg per minute. He is also on normal saline at the rate of 75 mL an hour. His age fibrillation is under better control and he is on no pressors. He can tolerate beta blockers. He is having low-grade fever still. The white cell count is up to 22. The shock liver is improving including the AST and ALP level. The LDH level was elevated. The CPKs also improving is down to 2431. His ammonia level is down to 85. His coagulation profile is within normal limits. On 08/09/2019 the patient is being seen in follow-up in intensive care unit. Unfortunately, the patient has been off sedation for more than 24 hours and the patient is still not showing significant neurologic recovery. The patient is not following any specific commands. In fact he is not even withdrawing to deep painful stimulation. No seizure activity has been noted. EEG was done and showed diffuse slowing and it was consistent with severe encephalopathy which could be toxic metabolic encephalopathy versus hypoxic encephalopathy. The patient will be kept off sedation. Meanwhile, the ammonia level is progressively coming down and is down to 58. He continues to have a week cough and gag reflex. The patient remains in atrial fibrillation. The patient remained on assist control mode of ventilation. He is on VC plus mode at the rate of 28 with a tidal volume of 450 and FiO2 of 50% with a PEEP of 10. The blood gases from today shows a component of respiratory alkalosis with a pH of 7.5 with a pCO2 of 36 and pO2 of 71. The white cell count of 23. The patient has developed some hyperchloremic hypernatremia in the sodium level is up to 147 with a chloride of 114. Renal function is stable. The patient is receiving vital high protein at the rate of 52 mL an hour. In terms of atrial fibrillation, I had utilized back the amiodarone drip at 0.5 mg per minute and the patient is also on metoprolol 50 mg by mouth 3 times a day. Heart rate is still slightly tachycardic and will continue the same regimen for now. The patient was given a dose of Lasix yesterday. The patient Is producing better urine output for now. His weight is still up. The CPKs down to 395. The AST is down to 1000. ALT is down to 58. LDH is down to 03/10/2007. Calcium level at 7.1. No other significant issues otherwise over the past 24 hours. He remains on a combination of Zosyn and vancomycin. The blood culture and the sputum culture was positive for MSSA. The sputum culture was positive for E. coli. The chest x-ray still showing rather consolidation worse on the right compared to the left. ET tube remains in a good location. On 08/10/2019 the patient has been approximately 72 hours of sedation. Unfortunately, we do not see any significant neurologic recovery the patient's condition. He is still not responding to any verbal or deep painful stimulation. He remains completely unresponsive. On this morning, I have a mild assist-control mode of ventilation with a VC plus mode at a tidal volume of 450 FiO2 of 50% with a PEEP of 10 and the respiratory rate of 24. His blood gases showed a component of respiratory alkalosis. His pH is at 7.53 with a pC O2 of 39 pO2 of 63. Chest x-ray still showing bilateral pneumonia bilateral airspace disease worse on the right along with cardiomegaly and bilateral pleural effusions. ET tube is in a good location. The patient's white cell count is at 27. The patient is still having episodes of fever. Most recent blood culture from 2 days ago was positive for MSSA and MSSA was also cultured and his lungs and it was cultured also E. coli in his lungs. We are still thinking that this was an aspiration pneumonia. Shock liver, his LFTs are nearly normalized, severe has also dropped and ammonia level is being monitored is still elevated at 83. The lactulose was held as the patient was having liquidy stool and the patient had become also hyperchloremic and the sodium level is up to 149. He is receiving free water supplements with NG for now. He is also on vital high protein. In terms of his atrial fibrillation, rate is under better control with a combination of amiodarone maintenance of 0.5 mg per minute and Cardizem drip at 10 mg an hour. The patient is also on IV heparin. The active issue for now is his altered mentation. On 08/11/2019, I'm seeing the patient for a follow-up in intensive care unit. His been off sedation for the past 92 hours. On today's evaluation that is some slight grimacing upon very deep painful stimulation and upon pinching on his upper chest. For the most part he remains unresponsive. No seizure activity. Shock liver has recovered. Ammonia level is on the decline. I started the patient on rifixamine 550 mg by mouth twice a day yesterday and ammonia level is down to 45. I suspect a component of hypoxic encephalopathy although the possibility of metabolic encephalopathy cannot be completely ruled out. He is on a mechanical ventilator. No change in the vent setting. No changes in the x-ray findings as the patient has extensive airspace disease bilaterally more so on the right lower lobe. On the ventilator, the patient is on a VC plus mode with a tidal volume of 450 and FiO2 of 50% with a PEEP of 10 and tidal volume of 450 with a rate of 16. The patient's blood gas showed a pH of 7.52 with a pCO2 of 39 and pO2 of 67. On and off he was still having fever yesterday. Repeat blood cultures were sent. He remains on examination Zosyn and vancomycin. He is tolerating his enteral feeding for nutritional support. Is on IV heparin drip regarding his atrial fibrillation. He remains on amiodarone drip and oral metoprolol for rate control. He is also started on Cleviprex which is running at 2 mg an hour for tighter blood pressure control. The active issue remains his altered mentation with a possibility of him having hypoxic encephalopathy with the details as mentioned above. Patient was reevaluated today on 08/12/19, remains on mechanical ventilation, his ventilator settings are assist control rate 16 volume control plus at 450 FiO2 at 50% and PEEP of 10. ABG showed a pO2 of 79 pCO2 of 39 pH of 7.52. Chest x- ray continues to show bilateral pleural effusions, and by basilar space disease, hence I recommended ultrasound to evaluate for possible thoracentesis if the effusion isn't large enough to be drained. However the ultrasound showed minimal pleural effusions bilaterally, insufficient for thoracentesis. Patient remains on Zosyn and vancomycin, and he hasn't MSSA bacteremia, sputum is positive for E. coli and staph aureus. Neurologically the patient is about the same, however the only change noted today is the fact that the patient tries to open his eyes and grimacing upon deep painful stimuli. Remains off narcotics and sedatives. WBC count is up to 25.3 today slightly improved compared to yesterday. Basic metabolic profile is basically normal and his BUN is improving down to 38 creatinine is 0.55. Liver enzymes are steadily improving. Ammonia is 60 today. It was as high as 146 about a week ago remains on rifaximin. Reevaluated today on, patient remains in the ICU, intubated and mechani raul ventilated. Yesterday the patient had significant agitation and he had to be placed back on propofol. This morning the propofol was discontinued, and the patient seems to be more responsive to stimuli/verbal stimuli patient is opening his eyes, wiggling his toes, seems to be slow but at least the best I have seen him so far. Hence I kept the propofol off, and I will give the patient a chance to go on a weaning trial if possible. He is not quite ready to start weaning but we will continue to hold propofol and address hourly today for possible placement on pressure support and CPAP. Presently the patient is on mechanical ventilation with assist control rate of 16, volume is 450 FiO2 dropped down from 60% to 50% and his PEEP was decreased to 8. His ABG this morning showed a pO2 of 124 pCO2 of 48 pH of 7.44 patient is on propofol which is presently on hold. He is on clindamycin and for his MSSA bacteremia. He is on enteral tube feeding. Chest x-ray continues to show small areas of pneumonia bilaterally, and possibly a small right sided pleural effusion not large enough to consider thoracentesis as noted on ultrasound On 08/14/2019 patient seen in follow-up, in the intensive care unit, she remains intubated, on mechanical ventilator, on assist control mode of ventilation with FiO2 of 50%. This morning blood gases showed pO2 of 112, pCO2 45, and pH of 7.48. IV 0.9 normal saline at a rate of 10 ML per hour, heparin per weight- based protocol, and Diprivan has been on hold. Patient is lethargic although she is waking up and follow commands, wiggling toes on command. Appears to be in no acute distress, today's chest x-ray has been reviewed showing diffuse pleural parenchymal changes consistent with pulmonary edema or ARDS. Patient continues on Kefzol and Clindamycin for MSSA and E. coli pneumonia and bacteremia, follow-up blood cultures have been negative. Patient has been afebrile, hemodynamically stable, not on any vasopressors, today's labs have been reviewed, leukocytosis is down trending, WBC is down to 18.7, hemoglobin is 9.7, sodium is 142, potassium is 3.3, chloride is 108, CO2 32, BUN is 37 and creatinine 0.53. Patient in sinus rhythm, he remains on oral amiodarone, and heparin infusion for anticoagulation. Diuretics with Lasix 40 mg every 12 hours Objective - Vital Signs Vital signs: Vital Signs Temp 98.8 F 08/14/19 12:00 Pulse 67 08/14/19 13:00 Resp 14 08/14/19 13:00 BP 134/64 08/14/19 13:00 Pulse Ox 97 08/14/19 13:00 Intake & Output 08/13/19 08/14/19 08/14/19 18:59 06:59 18:59 Intake Total 911 2145.793 768.077 Output Total 1250 1290 1470 Balance -339 855.793 -701.923 Weight 106.6 kg Intake: IV 506 502 282 Clindamycin 600 mg In 100 50 50 Dextrose 5% in Water 50 ml @ 50 mls/hr IVPB Q8HR [facility] Rx#:[id number] Pressure bag 66 72 42 Sodium Chloride 0.9% 1, 240 330 140 000 ml @ 10 mls/hr IV . Q24H [facility] Rx#:[id number] ceFAZolin 2 gm In Sodium 100 50 50 Chloride 0.9% 50 ml @ 100 mls/hr IVPB Q8HR [facility] Rx# :[id number] Intake, IV Titration 441.793 52.077 Amount Heparin Sod,Pork in 0.45% 441.793 52.077 NaCl 25,000 unit In 0.45 % NaCl 1 250ml.bag @ 12 UNITS/KG/HR 12.732 mls/hr IV .[id number] [facility] Rx#: [id number] Oral 50 50 Tube Feeding 355 852 284 Other 300 150 Output: Urine 650 1290 1470 Stool 600 Other: Voiding Method Indwelling Catheter Indwelling Catheter Indwelling Catheter ABP, PAP, CO, CI - Last Documented Arterial Blood Pressure 165/57 - Exam GENERAL EXAM: Lethargic but arousable to verbal stimuli, 64-year-old white male, intubated on mechanical ventilator on assist control mode of ventilation and FiO2 of 50%, comfortable in no apparent distress. HEAD: Normocephalic/atraumatic. EYES: Normal reaction of pupils, equal size. Conjunctiva pink, sclera white. NOSE: Clear with pink turbinates. THROAT: No erythema or exudates. NECK: No masses, no JVD, no thyroid enlargement, no adenopathy. CHEST: No chest wall deformity. Symmetrical expansion. LUNGS: Equal air entry with no crackles, wheeze, rhonchi or dullness. CVS: Regular rate and rhythm, normal S1 and S2, no gallops, no murmurs, no rubs ABDOMEN: Soft, nontender. No hepatosplenomegaly, normal bowel sounds, no guarding or rigidity. EXTREMITIES: No clubbing, no edema, no cyanosis, 2+ pulses and upper and lower extremities. MUSCULOSKELETAL: Muscle strength and tone normal. SPINE: No scoliosis or deformity SKIN: No rashes CENTRAL NERVOUS SYSTEM: Lethargic, responds to voice. No focal deficits, tone is normal in all 4 extremities. - Labs CBC & Chem 7: 08/14/19 05:00 08/14/19 05:00 Labs: Abnormal Lab Results - Last 24 Hours (Table) 08/14/19 08/14/19 08/14/19 Range/Units 01:04 05:00 05:00 WBC 18.7 H (3.8-10.6) k/uL RBC 3.70 L (4.30-5.90) m/uL Hgb 9.7 L (13.0-17.5) gm/dL Hct 31.3 L (39.0-53.0) % RDW 17.5 H (11.5-15.5) % Neutrophils # 16.7 H (1.3-7.7) k/uL APTT (22.0-30.0) sec ABG pH (7.35-7.45) ABG pO2 (83-108) mmHg ABG HCO3 (21-25) mmol/L ABG Total CO2 (19-24) mmol/L ABG O2 Saturation (94-97) % Potassium 3.3 L (3.5-5.1) mmol/L Chloride 108 H (98-107) mmol/L Carbon Dioxide 32 H (22-30) mmol/L BUN 37 H (9-20) mg/dL Creatinine 0.53 L (0.66-1.25) mg/dL Glucose 140 H (74-99) mg/dL POC Glucose (mg/dL) 125 H (75-99) mg/dL Calcium 7.5 L (8.4-10.2) mg/dL 08/14/19 08/14/19 08/14/19 Range/Units 05:00 05:04 07:37 WBC (3.8-10.6) k/uL RBC (4.30-5.90) m/uL Hgb (13.0-17.5) gm/dL Hct (39.0-53.0) % RDW (11.5-15.5) % Neutrophils # (1.3-7.7) k/uL APTT 38.3 H (22.0-30.0) sec ABG pH 7.48 H (7.35-7.45) ABG pO2 112 H (83-108) mmHg ABG HCO3 33 H (21-25) mmol/L ABG Total CO2 34 H (19-24) mmol/L ABG O2 Saturation 97.9 H (94-97) % Potassium (3.5-5.1) mmol/L Chloride (98-107) mmol/L Carbon Dioxide (22-30) mmol/L BUN (9-20) mg/dL Creatinine (0.66-1.25) mg/dL Glucose (74-99) mg/dL POC Glucose (mg/dL) 141 H (75-99) mg/dL Calcium (8.4-10.2) mg/dL 08/14/19 Range/Units 11:54 WBC (3.8-10.6) k/uL RBC (4.30-5.90) m/uL Hgb (13.0-17.5) gm/dL Hct (39.0-53.0) % RDW (11.5-15.5) % Neutrophils # (1.3-7.7) k/uL APTT (22.0-30.0) sec ABG pH (7.35-7.45) ABG pO2 (83-108) mmHg ABG HCO3 (21-25) mmol/L ABG Total CO2 (19-24) mmol/L ABG O2 Saturation (94-97) % Potassium (3.5-5.1) mmol/L Chloride (98-107) mmol/L Carbon Dioxide (22-30) mmol/L BUN (9-20) mg/dL Creatinine (0.66-1.25) mg/dL Glucose (74-99) mg/dL POC Glucose (mg/dL) 118 H (75-99) mg/dL Calcium (8.4-10.2) mg/dL Microbiology - Last 24 Hours (Table) 08/09/19 11:31 Blood Culture - Preliminary Blood No Growth after 120 hours 08/10/19 09:08 Blood Culture - Preliminary Blood No Growth after 96 hours 08/10/19 09:18 Blood Culture - Preliminary Blood No Growth after 96 hours Assessment and Plan Plan: Assessment: Acute hypoxic and hypercapnic respiratory failure. Suspect aspiration pneumonia. MSSA bacteremia Acute kidney injury, improving. Secondary to acute sepsis. Acute sepsis, and acute lactic acidosis on presentation. Chronic psychiatric disorder/bipolar disorder. Dyslipidemia. Benign essential hypertension. Shock liver. Acute rhabdomyolysis, resolved Pulmonary hypertension. Staph aureus septicemia, MSSA. Hyperchloremic hypernatremia secondary to diarrhea and intravascular volume depletion. Improved with D5W. Acute hepatic/metabolic encephalopathy Plan: Continue diuretics and antibiotics. Vital signs are stable, hemodynamically patient stable, today's chest x-ray has been reviewed still showing bilateral pleural effusions and bibasilar infiltrates. Diffuse interstitial pattern. We'll let the patient with cup little bit more hold sedation, we did attempt pressure-support of 10 and CPAP trial however patient was going apneic, and patient was switched over to SIMV mode of ventilation with a rate of 8, and pressure-support of 8. Hold sedation, hold tube feeds, if patient wakes up a little more may wean the rate of SIMV by 2. Continue GI and DVT prophylaxis, will continue with heparin infusion, there has been no recurrence of A. fib, patient remains in sinus rhythm, he is on oral amiodarone. Will likely need oral anticoagulation at some point. I performed a history & physical examination of the patient and discussed their management with my nurse practitioner, Radha Silva. I reviewed the nurse practitioner's note and agree with the documented findings and plan of care. Lung sounds are positive for diminished breath sounds. The findings and the impression was discussed with the patient. I attest to the documentation by the nurse practitioner. Time with Patient: Greater than 30
--- NOTE | 2019-08-14 14:47 | P.PN ---
Subjective Patient is admitted for acute hypoxic and hypercapnic respiratory failure which was believed to be secondary to Covid 19 pneumonia patient is presently on FiO2 of 60%. Patient does have related troponin by highly elevated be high d-dimer is of which patient is on anti-correlation dose of the Lovenox. Patient scored 19 is pending patient has chest x-ray findings consistent with the pulmonary edema or atypical pneumonia or Covid 19 pneumonia along with the significant transaminitis elevated highly elevated LDH highly elevated. Ferritin and si gnificant lymphopenia ration continues to have fever. Patient also has acute renal failure secondary to possibly acute tubular necrosis patient is on sodium bicarbonate and D5 because of hyperkalemia. 08/07/2019 Patient the white blood cell count went up to 17,000. His blood cultures are positive for staph aureus we'll repeat the blood cultures tomorrow. Patient liver enzymes are elevated because of shock liver ultrasound did not show significant abnormality. Patient had an elevated ammonia yesterday which is actually better now after lactulose, patient is off pressors. Patient remains on amiodarone. Computed tomography scan of the brain did not show any significant abnormality patient Covid 19 is negative patient remains on cefepime and vancomycin. Primary source is probably lung. Patient has fairly good urine output at 400 mL per hour on volume control ventilation set up respiratory rate of 28 total volume of 450 PEEP of 15 episode of 50% patient's hypercapnic respiratory failure improved and hypoxic respiratory failure improved patient has pH of 7.36 pCO2 of 37 08/07/2028 patient doesn't have any significant clinical improvement remains bacteremic repeat blood cultures are being obtained for today and tomorrow as well. Patient has staph aureus in the blood patient probably will need the transesophageal echocardiogram. Patient is off sedation but is not arousable yet because of which neurology is evaluating the patient and patient is getting EEG patient remains on Vanco mycin cefepime was switched to Zosyn because of concern for aspiration patient aspirin cultures are positive for staph aureus and E. coli along with the species infectious disease is following the patient as well. 08/09/2019 She is still the remains is severely encephalopathic and it and the just withdrawing from painful stimuli off sedation for about 2 days. Patient has severe toxic and metabolic encephalopathy patient is mildly alkalotic patient's present tidal volume is 450 and set up respiratory rate was Down now and patient is breathing over the ventilator and is breathing at around 24/m on an average. FiO2 of 50% PEEP of 10. Patient liver enzymes are bit better patient remains on Zosyn and vancomycin probably vancomycin can be discontinued as patient has MSSA in the blood cultures. Infectious disease is following the patient. Patient white blood cell count remains high patient eventually will need a BRENDA to rule out endocarditis, will plan on this if he has some response on the antibiotics and less encephalopathic and if there is any improvement 08/10/2019 No significant change in his clinical condition including his mental status which it has not improved at patient is hyponatremic because of IV fluids patient is on D5 water now because of hypernatremia and hyperchloremia. Patient remains in the same vent settings as as today remains bacteremic prognosis is extremely poor. Tomorrow we'll discuss with the family regarding overall goals of care. Patient is presently not on pressor support serum creatinine remains stable patient is on amiodarone for atrial fibrillation patient will need repeat blood cultures again tomorrow patient is having thick secretions from the endotracheal to. Patient is presently on Zosyn and vancomycin, rifampin was added patient was started on daily. 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 There is no chance of reasonable neurological recovery she wants to make him comfort care at that time. Patient remains on clevidipine. Patient last 2 blood cultures are negative. 08/11/2022 Patient is still on ventilator support patient the blood cultures are negative so far his bacteremia secondary to pneumonia. Patient is bit more responsive and response to 2 painful stimuli. White blood cell count started improving patient overall has some improvement has good urine output. 08/13/2019 Patient has significant improvement competitors. Patient is much more awake will undergo repeat cultures tomorrow 08/14/2019 Patient is bit more awake appears to have been improving patient will undergo weaning trial later today Review Of systems: Unable to obtain due to his clinical condition. All inpatient medications were reviewed and appropriate changes in these medications as dictated in the interval history and assessment and plan. Objective - Vital Signs Vital signs: Vital Signs Temp 98.8 F 08/14/19 12:00 Pulse 65 08/14/19 14:00 Resp 16 08/14/19 14:00 BP 134/62 08/14/19 14:00 Pulse Ox 98 08/14/19 14:00 Intake & Output 08/13/19 08/14/19 08/14/19 18:59 06:59 18:59 Intake Total 911 2145.793 898.232 Output Total 1250 1290 1520 Balance -339 855.793 -621.768 Weight 106.6 kg Intake: IV 506 502 308 Clindamycin 600 mg In 100 50 50 Dextrose 5% in Water 50 ml @ 50 mls/hr IVPB Q8HR [facility] Rx#:[id number] Pressure bag 66 72 48 Sodium Chloride 0.9% 1, 240 330 160 000 ml @ 10 mls/hr IV . Q24H [facility] Rx#:[id number] ceFAZolin 2 gm In Sodium 100 50 50 Chloride 0.9% 50 ml @ 100 mls/hr IVPB Q8HR [facility] Rx# :[id number] Intake, IV Titration 441.793 156.232 Amount Heparin Sod,Pork in 0.45% 441.793 156.232 NaCl 25,000 unit In 0.45 % NaCl 1 250ml.bag @ 12 UNITS/KG/HR 12.732 mls/hr IV .[id number] [facility] Rx#: [id number] Oral 50 50 Tube Feeding 355 852 284 Other 300 150 Output: Urine 650 1290 1520 Stool 600 Other: Voiding Method Indwelling Catheter Indwelling Catheter Indwelling Catheter ABP, PAP, CO, CI - Last Documented Arterial Blood Pressure 191/61 - Exam PHYSICAL EXAMINATION: GENERAL: Patient is intubated sedated and vented to settings as mentioned above patient is a FiO2 of 50% PEEP of 15 pedal volume of 450 set up respiratory rate of 28 assist-control ventilation. A HEENT: Pupils are round and equally reacting to light. EOMI. No scleral icterus. No conjunctival pallor. Normocephalic, atraumatic. No pharyngeal erythema. No thyromegaly. CARDIOVASCULAR: S1 and S2 present. No murmurs, rubs, or gallops. PULMONARY: Chest is clear to auscultation, no wheezing or crackles. ABDOMEN: Soft, nontender, nondistended, normoactive bowel sounds. No palpable organomegaly. MUSCULOSKELETAL: No joint swelling or deformity. EXTREMITIES: No cyanosis, clubbing, or pedal edema. NEUROLOGICAL: Gross neurological examination did not reveal any focal deficits. SKIN: No rashes. - Labs CBC & Chem 7: 08/14/19 05:00 08/14/19 14:00 Labs: Abnormal Lab Results - Last 24 Hours (Table) 08/14/19 08/14/19 08/14/19 Range/Units 01:04 05:00 05:00 WBC 18.7 H (3.8-10.6) k/uL RBC 3.70 L (4.30-5.90) m/uL Hgb 9.7 L (13.0-17.5) gm/dL Hct 31.3 L (39.0-53.0) % RDW 17.5 H (11.5-15.5) % Neutrophils # 16.7 H (1.3-7.7) k/uL APTT (22.0-30.0) sec ABG pH (7.35-7.45) ABG pO2 (83-108) mmHg ABG HCO3 (21-25) mmol/L ABG Total CO2 (19-24) mmol/L ABG O2 Saturation (94-97) % Potassium 3.3 L (3.5-5.1) mmol/L Chloride 108 H (98-107) mmol/L Carbon Dioxide 32 H (22-30) mmol/L BUN 37 H (9-20) mg/dL Creatinine 0.53 L (0.66-1.25) mg/dL Glucose 140 H (74-99) mg/dL POC Glucose (mg/dL) 125 H (75-99) mg/dL Calcium 7.5 L (8.4-10.2) mg/dL 08/14/19 08/14/19 08/14/19 Range/Units 05:00 05:04 07:37 WBC (3.8-10.6) k/uL RBC (4.30-5.90) m/uL Hgb (13.0-17.5) gm/dL Hct (39.0-53.0) % RDW (11.5-15.5) % Neutrophils # (1.3-7.7) k/uL APTT 38.3 H (22.0-30.0) sec ABG pH 7.48 H (7.35-7.45) ABG pO2 112 H (83-108) mmHg ABG HCO3 33 H (21-25) mmol/L ABG Total CO2 34 H (19-24) mmol/L ABG O2 Saturation 97.9 H (94-97) % Potassium (3.5-5.1) mmol/L Chloride (98-107) mmol/L Carbon Dioxide (22-30) mmol/L BUN (9-20) mg/dL Creatinine (0.66-1.25) mg/dL Glucose (74-99) mg/dL POC Glucose (mg/dL) 141 H (75-99) mg/dL Calcium (8.4-10.2) mg/dL 08/14/19 08/14/19 Range/Units 11:54 14:00 WBC (3.8-10.6) k/uL RBC (4.30-5.90) m/uL Hgb (13.0-17.5) gm/dL Hct (39.0-53.0) % RDW (11.5-15.5) % Neutrophils # (1.3-7.7) k/uL APTT 41.5 H (22.0-30.0) sec ABG pH (7.35-7.45) ABG pO2 (83-108) mmHg ABG HCO3 (21-25) mmol/L ABG Total CO2 (19-24) mmol/L ABG O2 Saturation (94-97) % Potassium (3.5-5.1) mmol/L Chloride (98-107) mmol/L Carbon Dioxide (22-30) mmol/L BUN (9-20) mg/dL Creatinine (0.66-1.25) mg/dL Glucose (74-99) mg/dL POC Glucose (mg/dL) 118 H (75-99) mg/dL Calcium (8.4-10.2) mg/dL Microbiology - Last 24 Hours (Table) 08/09/19 11:31 Blood Culture - Preliminary Blood No Growth after 120 hours 08/10/19 09:08 Blood Culture - Preliminary Blood No Growth after 96 hours 08/10/19 09:18 Blood Culture - Preliminary Blood No Growth after 96 hours Assessment and Plan Plan: Acute hypoxic and hypercapnic respiratory failure secondary to sepsis from a staphylococcal bacteremia possible COPD exacerbation. Continue ventilator support with the above-mentioned vent settings continue with inhalational treatments His blood cultures remained positive persistent bacteremia with MSSA. Patient patient will be switched to cefazolin and clindamycin, which provides double coverage for MSSA and also covers aspiration pneumonia if any. -Sepsis shock shock resolved y secondary to staphylococcal pneumonia, patient has persistent bacteremia -Severe toxic encephalopathy from sepsis and septic shock -Acute renal failure possibly acute tubular necrosis patient creatinine improved with IV fluids -Lactic acidosis secondary to sepsis Hypernatremia and hyperchloremia secondary to normal saline which was discontinued and patient received Lasix yesterday. -Hypertension -Hyperlipidemia next and heparin hypertension -Elevated liver enzymes probably secondary to shock liver. -Hepatic encephalopathy: Ammonia level is bit better now. -Troponin leak secondary to myocardial injury from sepsis. -Severe pulmonary hypertension
[2019-08-14] MEDS: HEPARIN SODIUM,PORCINE 5,000 UNIT/ML 1 ML VIAL IV PRN (15:00)
[2019-08-14] MEDS: POTASSIUM CHLORIDE 20 MEQ in WATER FOR INJECTION 1 100ML.BAG IVPB SCH ×2 (15:00→17:58)
[2019-08-14 18:04] LABS: Glucose,Whole Blood 127 mg/dL (75-99)
--- NOTE | 2019-08-14 18:11 | CDI ---
Documentation Clarification Form Date: 08/14/2019 06:07:55 PM From: Elizabeth Miguel RN, CCDS Admit Date: 08/05/2019 01:46:00 PM Patient Name: Domo Bella Visit Number: [id number] ATTENTION: The Clinical Documentation Specialists (CDI) and [facility] Coding Staff appreciate your assistance in clarifying documentation. Please respond to the clarification below the line at the bottom and electronically sign. The CDI & [facility] Coding staff will review the response and follow-up if needed. Please note: Queries are made part of the Legal Health Record. If you have any questions, please contact the author of this message via ITS. Dr. Korin Alvarado Please render your opinion on the clinical significance of the patients hemoglobin/hematocrit levels. History/Risk Factors: COPD, HTN, Hypoxia Clinical indicators: 08/04-08/13 Hgb: 13.2/13.2/12.2/12/12.2/14/13.5/11.5/10.5/9.7 08/04-08/13 HCT: 43/42.1/38.5/36.3/39/44/42.2/36.7/33.3/31.3 Treatment: Daily Lab Monitoring 08/04 3L 0.9% NS IVF Bolus followed by 10cc/hr In order to capture the severity of condition, please clarify if the labs/clinical indicators signify: Acute blood loss anemia Acute on chronic blood loss anemia Chronic blood loss anemia Iron deficiency anemia Drug induced anemia Nutritional anemia Anemia of chronic kidney disease Anemia of chronic disease Unable to determine Other, please specify (Last Form Revision: May 2019) Unable to determine MTDD
[2019-08-15 03:45] LABS: Glucose,Whole Blood 128 mg/dL (75-99)
[2019-08-15 05:06] LABS: Glucose,Whole Blood 125 mg/dL (75-99)
[2019-08-15 05:28] LABS: Anisocytosis Slight; Basophils % (A) 0 %; Eosinophils # (A) 0.1 k/uL (0-0.7); Eosinophils % (A) 0 %; HGB 9.4 gm/dL (13.0-17.5); Lymphocytes % (A) 6 %; MCHC 31.2 g/dL (31.0-37.0); MCV 83.4 fL (80.0-100.0); Mean Platelet Volume 8.2; Monocytes # (A) 0.8 k/uL (0-1.0); Monocytes % (A) 5 %; Neutrophils # (A) 14.3 k/uL (1.3-7.7); Neutrophils % (A) 87 %; Platelet Count 283 k/uL (150-450); RBC 3.59 m/uL (4.30-5.90); RDW 17.3 % (11.5-15.5); WBC 16.4 k/uL (3.8-10.6)
[2019-08-15] MEDS: INSULIN ASPART (NovoLOG) 100 UNIT/ML VIAL SQ SCH ×3 (05:54→17:41)
[2019-08-15 06:26] LABS: African American GFR (CKD) >90 (>60 ml/min/1.73 sqM); Anion Gap 3 mmol/L; Blood Urea Nitrogen 31 mg/dL (9-20); Calcium 7.7 mg/dL (8.4-10.2); Carbon Dioxide 32 mmol/L (22-30); Chloride 106 mmol/L (98-107); Glucose 123 mg/dL (74-99); Non-African American GFR(CKD) >90 (>60 ml/min/1.73 sqM); Potassium 3.5 mmol/L (3.5-5.1); Sodium 141 mmol/L (137-145)
--- NOTE | 2019-08-15 07:11 | XR ---
EXAMINATION TYPE: XR chest 1V portable DATE OF EXAM: 08/15/2019 COMPARISON: 08/14/2019 INDICATION: Difficulty breathing, ventilator TECHNIQUE: Single frontal view of the chest is obtained. FINDINGS: The heart size is normal. The pulmonary vasculature is prominent. Endotracheal tube tip is above the mario. Nasogastric tube transverses the thorax the tip in left up per quadrant of the abdomen. Right central venous catheter tip is in the proximal right atrium. There is a small right pleural effusion. Small left pleural effusion is present. Bibasilar infiltrate s are present IMPRESSION: 1. Bibasilar infiltrates and effusions, stable from comparison. 2. Lines and catheters unchanged from prior study.
[2019-08-15] MEDS: POTASSIUM CHLORIDE 20 MEQ in WATER FOR INJECTION 1 100ML.BAG IVPB SCH ×2 (07:13→11:00)
[2019-08-15 07:46] LABS: ABG Base Excess 9.7 mmol/L; ABG HCO3 33 mmol/L (21-25); ABG PCO2 40 mmHg (35-45); ABG PH 7.52 (7.35-7.45); ABG PO2 71 mmHg (83-108); ABG TCO2 34 mmol/L (19-24); Allen Test Performed? Yes
[2019-08-15 07:48] LABS: ABG Oxygen Saturation 94.7 % (94-97)
[2019-08-15] MEDS: METOPROLOL TARTRATE 50 MG TAB PO SCH ×3 (08:07→21:03)
[2019-08-15] MEDS: PANTOPRAZOLE 40 MG/10 ML VIAL IV SCH (08:07)
[2019-08-15] MEDS: ASPIRIN 81 MG PO SCH (08:07)
[2019-08-15] MEDS: CHLORHEXIDINE GLUCONATE 15 ML CUP MUCOUS MEM SCH ×2 (08:07→21:04)
[2019-08-15] MEDS: VALPROIC ACID ORAL SOLN 250 MG/5 ML CUP OG-TUBE SCH (08:07)
[2019-08-15] MEDS: AMIODARONE 200 MG TAB PO SCH ×2 (08:07→21:03)
[2019-08-15] MEDS: HEPARIN SOD,PORK IN 0.45% NACL 25,000 UNIT in 0.45% NACL 1 250ML.BAG IV SCH ×2 (08:10→17:36)
[2019-08-15] MEDS: FUROSEMIDE 10 MG/ML 4 ML VIAL IV SCH ×2 (08:34→15:55)
[2019-08-15] MEDS: CLINDAMYCIN 600 MG in DEXTROSE 5% IN WATER 50 ML IVPB SCH ×4 (08:34→15:55)
[2019-08-15] MEDS: HEPARIN SODIUM,PORCINE 5,000 UNIT/ML 1 ML VIAL IV PRN (08:37)
[2019-08-15] MEDS: HYDROmorphone 1 MG/ML 1 ML SYRINGE IVP PRN ×4 (09:42→21:04)
[2019-08-15] MEDS: LORazepam 2 MG/ML INJ IV PRN (09:47)
[2019-08-15] MEDS: IPRATROPIUM-ALBUTEROL 3 ML NEB INHALATION SCH ×3 (10:55→19:30)
[2019-08-15 12:09] LABS: Glucose,Whole Blood 138 mg/dL (75-99)
--- NOTE | 2019-08-15 13:01 | P.PN ---
Subjective Progress Note Date: 08/15/19 Principal diagnosis: Acute hypoxic and hypercapnic respiratory failure, secondary to aspiration pneumonia. 62-year-old male patient who was brought into the emergency department today unresponsive and profoundly hypoxic. The patient was in acute hypoxic respiratory failure. Initial pulse ox was in the mid 30s. Apparently he was not also communicating or responding. He was apparently awake and alert on the morning prior to him coming to the hospital according to the landlord. The landlord noted that the patient was appearing ill and called EMS. Upon EMS arrival, the patient was found to be obtunded. He had a fever of 10 1F. He was found to be hypoxic, brought into the emergency room he was found to be tachycardic and hypoxic with was placed on supplemental oxygen without any benefit and ultimately the patient was intubated and placed on a mechanical ventilator. COVID 19 is suspected. The patient was placed on the opposite isolation. The patient had the appropriate nasal swabs. Chest x-ray showed bilateral airspace disease consistent with pneumonia in addition to interstitial pneumonitis. ET tube was around 3.7 cm above the mario. NG tube was extending into the left abdomen. There was a right upper lobe consolidation noted and a tiny right-sided pleural effusion. No evidence of any pneumothorax. There was bilateral infiltrates and coarse interstitium and a prosthetic left shoulder. The patient has a white cell count of 4.9. He had some lymphopenia. His platelet counts is no within normal limits. The blood gases was done on 100% nonrebreather showed a pH of 7.17 with a pCO2 of 66 and pO2 of 45. The patient also had an acute kidney injury with a creatinine of 1.65. Epigastric level was at 3.1. The ALT is at 1106 with an ammonia level of 146 and a bilirubin of 0.5 and an albumin of 4.1. The serum alcohol was negative and the patient has negative salicylates and acetaminophen. Influenza screen has been negative. Covid 19 analysis still pending for now. This patient lives with a sister in a house and he collects Social Security disability. He has had issues with mental health and the patient has been dealing with bipolar disorder and chronic insomnia of many years duration. He has also chronic anxiety disorder. No history of any previous suicidal ideation or intent. No delusions or hallucinations based on recent psychiatric evaluation that was in the hospital. On today's evaluation of 62,020 the patient is being seen in follow-up in the intensive care unit. Noted the patient is intubated on a mechanical ventilator and is suspected to have Covid 19. He is afebrile on today's evaluation. He remains on a mechanical ventilator. He is sedated with propofol running at 20 mg per KG per minute. He was given a total of 5 L of IV fluid as the patient was hypotensive and currently the fluid is running at 75 mL an hour of normal saline. He remains on norepinephrine infusion at 0.08 mg per KG per minute. He remains on a mechanical ventilator. His assist-control mode at the rate of 28 with a tidal volume of 450 and FiO2 of 60% with a PEEP of 15. His blood gases showed a pH of 7.12 with a pCO2 of 58 and pO2 of 187. This was done and FiO2 of 100%. Otherwise, the patient has blood abnormalities it is consistent with Covid 19 infection. He has a rhabdomyolysis with a CPK level of 6114. He has also transaminitis with a AST of 3354, ALT of 1962, and his LDH level is at 8367. His creatinine is at 1.2, which is up from a baseline of 1.65 with fluid resuscitation. His current minute ventilation is 13 L. I made recommendations to keep the same vent setting. Based on the blood on of some non-anion gap metabolic acidosis, and with recommendations to start the patient on bicarb infusion and addition to 2 A of IV bicarb pushes. He was having temperatures throughout the night with temperature maximum 100.8. Current temperature is 99.6. He'll be started on enteral feeding for nutritional support. Covid 19 evaluation is still pending for now. On today's evaluation of 08/07/2019 and seeing this patient for a follow-up. The patient has sedated with propofol. He was given a sedation holiday yesterday and his neurologic exam was suboptimal as the patient did not show adequate neurologic recovery. Based on that, a CAT scan of the brain was done and the CAT scan of the brain was negative for any acute abnormalities. Noted the patient was profoundly hypoxic and at time of admission to the hospital and there is a suspicion for hypoxic encephalopathy. Contrary to my expectations, the patient checked negative for Covid 19 infection. The blood culture came back positive for staph aureus. Currently is on a combination of cefepime and vancomycin. The patient was resuscitated with more than 5 L of normal saline and the patient is also requiring some pressors for hemodynamic support and levo fed was started and 8 on was placed on hold as of 5:00 this morning. Urine output in the order of 40 mL an hour. In terms of sedation, the patient is on propofol at 20 g per KG per minute. Note that the patient had issues with a significant leak around his orotracheal tube. This was replaced yesterday by [employer] without any major difficulties. This morning, he remains on a VC plus mode with a rate of 28 and a tidal volume of 450 and a nighttime of 1 second with a PEEP of 15 with an FiO2 of 50%. Blood gases from today showed a pH of 7.36 with a pCO2 of 37 and pO2 of 92. Chest x-ray showing diffuse bilateral pulmonary infiltrates. His cardiac rhythm is still in atrial fibrillation. He is on amiodarone maintenance at 0.5 mg per minute. The patient has a creatinine of 1 .5. There is still evidence of transaminitis with elevation of the AST and ALP and both are improving. LDH level is elevated at 5738. CPKs improving at 2431. C-reactive protein is elevated at 622. Note that the LDH is on the decline, CPKs on the decline on today's evaluation. LFTs are also improving. On 08/08/2019 on seeing this patient for a follow-up. The patient has been off sedation since yesterday. I am not seeing an adequate neurologic recovery in this patient. There may be a component of hepatic encephalopathy in the patient's went into shock liver. Nevertheless, his ammonia is dropping. He is on lactulose. He is producing adequate amount of bowel activity. He is undergo ing training the painful stimulation. Pupils are about 3 mm in size and there is C-reactive to light. There is a very weak cough and a gag. Absolutely no response to deep painful stimulation. No seizure activity has been noted. Neurology will be consulted on the case. EEG will be ordered. Meanwhile, the patient is clearly becoming a case of possible aspiration staphylococcal pneumonia. His blood culture came back positive for staph aureus. His sputum positive for staph. He also has gram-negative bacillus in his sputum which returns clerk to be E. coli. For now, the cultures and the blood to be MSSA. The patient was on examination of cefepime and vancomycin. I dropped the cefepime and I utilized Zosyn to give him better anaerobic coverage as the patient clearly has a history of aspiration. Meanwhile, the Covid test came back negative. The patient remains on a mechanical ventilator. On today's chest x-ray there is worsening over the bilateral pulmonary infiltrates worse on the right. ET tube remains in a good location. The patient remains on an assist-control mode at the rate of 18 with a tidal volume of 450 and FiO2 of 50% with a PEEP of 10. Blood gas showed a pH of 7.46 with a pCO2 of 34 and pO2 of 103. CVP is ranging between 12 and 14. He remains in atrial fibrillation. He is on amiodarone drip maintenance at 0.5 mg per minute. He is also on normal saline at the rate of 75 mL an hour. His age fibrillation is under better control and he is on no pressors. He can tolerate beta blockers. He is having low-grade fever still. The white cell count is up to 22. The shock liver is improving including the AST and ALP level. The LDH level was elevated. The CPKs also improving is down to 2431. His ammonia level is down to 85. His coagulation profile is within normal limits. On 08/09/2019 the patient is being seen in follow-up in intensive care unit. Unfortunately, the patient has been off sedation for more than 24 hours and the patient is still not showing significant neurologic recovery. The patient is not following any specific commands. In fact he is not even withdrawing to deep painful stimulation. No seizure activity has been noted. EEG was done and showed diffuse slowing and it was consistent with severe encephalopathy which could be toxic metabolic encephalopathy versus hypoxic encephalopathy. The patient will be kept off sedation. Meanwhile, the ammonia level is progressively coming down and is down to 58. He continues to have a week cough and gag reflex. The patient remains in atrial fibrillation. The patient remained on assist control mode of ventilation. He is on VC plus mode at the rate of 28 with a tidal volume of 450 and FiO2 of 50% with a PEEP of 10. The blood gases from today shows a component of respiratory alkalosis with a pH of 7.5 with a pCO2 of 36 and pO2 of 71. The white cell count of 23. The patient has developed some hyperchloremic hypernatremia in the sodium level is up to 147 with a chloride of 114. Renal function is stable. The patient is receiving vital high protein at the rate of 52 mL an hour. In terms of atrial fibrillation, I had utilized back the amiodarone drip at 0.5 mg per minute and the patient is also on metoprolol 50 mg by mouth 3 times a day. Heart rate is still slightly tachycardic and will continue the same regimen for now. The patient was given a dose of Lasix yesterday. The patient Is producing better urine output for now. His weight is still up. The CPKs down to 395. The AST is down to 1000. ALT is down to 58. LDH is down to 03/10/2007. Calcium level at 7.1. No other significant issues otherwise over the past 24 hours. He remains on a combination of Zosyn and vancomycin. The blood culture and the sputum culture was positive for MSSA. The sputum culture was positive for E. coli. The chest x-ray still showing rather consolidation worse on the right compared to the left. ET tube remains in a good location. On 08/10/2019 the patient has been approximately 72 hours of sedation. Unfortunately, we do not see any significant neurologic recovery the patient's condition. He is still not responding to any verbal or deep painful stimulatio n. He remains completely unresponsive. On this morning, I have a mild assist- control mode of ventilation with a VC plus mode at a tidal volume of 450 FiO2 of 50% with a PEEP of 10 and the respiratory rate of 24. His blood gases showed a component of respiratory alkalosis. His pH is at 7.53 with a pCO2 of 39 pO2 of 63. Chest x-ray still showing bilateral pneumonia bilateral airspace disease wo rse on the right along with cardiomegaly and bilateral pleural effusions. ET tube is in a good location. The patient's white cell count is at 27. The patient is still having episodes of fever. Most recent blood culture from 2 days ago was positive for MSSA and MSSA was also cultured and his lungs and it was cultured also E. coli in his lungs. We are still thinking that this was an aspiration pneumonia. Shock liver, his LFTs are nearly normalized, severe has also dropped and ammonia level is being monitored is still elevated at 83. The lactulose was held as the patient was having liquidy stool and the patient had become also hyperchloremic and the sodium level is up to 149. He is receiving free water supplements with NG for now. He is also on vital high protein. In terms of his atrial fibrillation, rate is under better control with a combination of amiodarone maintenance of 0.5 mg per minute and Cardizem drip at 10 mg an hour. The patient is also on IV heparin. The active issue for now is his altered mentation. On 08/11/2019, I'm seeing the patient for a follow-up in intensive care unit. His been off sedation for the past 92 hours. On today's evaluation that is some slight grimacing upon very deep painful stimulation and upon pinching on his upper chest. For the most part he remains unresponsive. No seizure activity. Shock liver has recovered. Ammonia level is on the decline. I started the patient on rifixamine 550 mg by mouth twice a day yesterday and ammonia level is down to 45. I suspect a component of hypoxic encephalopathy although the possibility of metabolic encephalopathy cannot be completely ruled out. He is on a mechanical ventilator. No change in the vent setting. No changes in the x-ray findings as the patient has extensive airspace disease bilaterally more so on the right lower lobe. On the ventilator, the patient is on a VC plus mode with a tidal volume of 450 and FiO2 of 50% with a PEEP of 10 and tidal volume of 450 with a rate of 16. The patient's blood gas showed a pH of 7.52 with a pCO2 of 39 and pO2 of 67. On and off he was still having fever yesterday. Repeat blood cultures were sent. He remains on examination Zosyn and vancomycin. He is tolerating his enteral feeding for nutritional support. Is on IV heparin d rip regarding his atrial fibrillation. He remains on amiodarone drip and oral metoprolol for rate control. He is also started on Cleviprex which is running at 2 mg an hour for tighter blood pressure control. The active issue remains his altered mentation with a possibility of him having hypoxic encephalopathy with the details as mentioned above. Patient was reevaluated today on 08/12/19, remains on mechanical ventilation, his ventilator settings are assist control rate 16 volume control plus at 450 FiO2 at 50% and PEEP of 10. ABG showed a pO2 of 79 pCO2 of 39 pH of 7.52. Chest x- ray continues to show bilateral pleural effusions, and by basilar space disease, hence I recommended ultrasound to evaluate for possible thoracentesis if the effusion isn't large enough to be drained. However the ultrasound showed minimal pleural effusions bilaterally, insufficient for thoracentesis. Patient remains on Zosyn and vancomycin, and he hasn't MSSA bacteremia, sputum is positive for E. coli and staph aureus. Neurologically the patient is about the same, however the only change noted today is the fact that the patient tries to open his eyes and grimacing upon deep painful stimuli. Remains off narcotics and sedatives. WBC count is up to 25.3 today slightly improved compared to yesterday. Basic metabolic profile is basically normal and his BUN is improving down to 38 creatinine is 0.55. Liver enzymes are steadily improving. Ammonia is 60 today. It was as high as 146 about a week ago remains on rifaximin. Reevaluated today 08/13/19, patient remains in the ICU, intubated and mechanically ventilated. Yesterday the patient had significant agitation and he had to be placed back on propofol. This morning the propofol was discontinued, and the patient seems to be more responsive to stimuli/verbal stimuli patient is opening his eyes, wiggling his toes, seems to be slow but at least the best I have seen him so far. Hence I kept the propofol off, and I will give the patient a chance to go on a weaning trial if possible. He is not quite ready to start weaning but we will continue to hold propofol and address hourly today for possible placement on pressure support and CPAP. Presently the patient is on mechanical ventilation with assist control rate of 16, volume is 450 FiO2 dropped down from 60% to 50% and his PEEP was decreased to 8. His ABG this morning showed a pO2 of 124 pCO2 of 48 pH of 7.44 patient is on propofol which is presently on hold. He is on clindamycin and for his MSSA bacteremia. He is on enteral tube feeding. Chest x-ray continues to show small areas of pneumonia bilaterally, and possibly a small right sided pleural effusion not large enough to consider thoracentesis as noted on ultrasound On 08/14/2019 patient seen in follow-up, in the intensive care unit, she remains intubated, on mechanical ventilator, on assist control mode of ventilation with FiO2 of 50%. This morning blood gases showed pO2 of 112, pCO2 45, and pH of 7.48. IV 0.9 normal saline at a rate of 10 ML per hour, heparin per weight- based protocol, and Diprivan has been on hold. Patient is lethargic although she is waking up and follow commands, wiggling toes on command. Appears to be in no acute distress, today's chest x-ray has been reviewed showing diffuse ple ural parenchymal changes consistent with pulmonary edema or ARDS. Patient continues on Kefzol and Clindamycin for MSSA and E. coli pneumonia and bacteremia, follow-up blood cultures have been negative. Patient has been afebrile, hemodynamically stable, not on any vasopressors, today's labs have be en reviewed, leukocytosis is down trending, WBC is down to 18.7, hemoglobin is 9.7, sodium is 142, potassium is 3.3, chloride is 108, CO2 32, BUN is 37 and creatinine 0.53. Patient in sinus rhythm, he remains on oral amiodarone, and heparin infusion for anticoagulation. Diuretics with Lasix 40 mg every 12 hours Patient was evaluated today on 08/15/19, remains intubated and mechanically ventilated. Patient tolerated basically 24 hours of pressure support of 10, IMV of 6 and FiO2 at 50%. However when the patient was switched to pressure support of 10 and CPAP, he was noted to have shallow breathing, his tidal volume was noted to be low, and the patient was building up with secretions into the endotracheal tube. He was suctioned but he was noted to be in a bit of distress, hence I recommended placing the patient back on assist control mode of mechanical ventilation, and obviously is not quite ready to be weaned and extubated. His ventilator settings are basically the same, unchanged from yesterday. He was on to this morning on IMV of 6 and pressure support of 10 with FiO2 at 50%. Hence I recommended not to wean and extubate today. Patient is not quite ready because he didn't tolerate the pressure support with CPAP trial. I did increase his Lasix since his chest x-ray is showing a bit of worsening of his bilateral pulmonary edema/infiltrates, Lasix was increased to 40 mg IV push every 8 hours on a trial basis. Patient remains awake, he seems to be generally weak, he follows simple instructions, but he is so weak and I'm suspecting that the patient has critical illness polyneuropathy. Objective - Vital Signs Vital signs: Vital Signs Temp 98.7 F 08/15/19 12:00 Pulse 78 08/15/19 12:00 Resp 25 H 08/15/19 12:00 BP 136/65 08/15/19 12:00 Pulse Ox 94 L 08/15/19 12:00 Intake & Output 08/14/19 08/15/19 08/15/19 18:59 06:59 18:59 Intake Total 4590.158 4108.572 1470.056 Output Total 2004 1245 1740 Balance -368.768 311.572 -269.944 Weight 105.4 kg 105.4 kg Intake: IV 562 412 306 Clindamycin 600 mg In 100 50 50 Dextrose 5% in Water 50 ml @ 50 mls/hr IVPB Q8HR [facility] Rx#:[id number] Pressure bag 72 72 36 Sodium Chloride 0.9% 1, 240 240 120 000 ml @ 10 mls/hr IV . Q24H [facility] Rx#:[id number] ceFAZolin 2 gm In Sodium 150 50 100 Chloride 0.9% 50 ml @ 100 mls/hr IVPB Q8HR [facility] Rx# :[id number] Intake, IV Titration 256.232 232.572 357.056 Amount Heparin Sod,Pork in 0.45% 156.232 132.572 257.056 NaCl 25,000 unit In 0.45 % NaCl 1 250ml.bag @ 12 UNITS/KG/HR 12.732 mls/hr IV .[id number] [facility] Rx#: [id number] Potassium Chloride 20 meq 100 100 100 In Water For Injection 1 100ml.bag @ 50 mls/hr IVPB Q2H [facility] Rx#: [id number] Tube Feeding 568 852 547 Other 250 60 260 Output: Urine 1805 1245 1740 Stool 200 Other: Voiding Method Indwelling Catheter Indwelling Catheter Indwelling Catheter ABP, PAP, CO, CI - Last Documented Arterial Blood Pressure 150/52 - Exam Gen. appearance, revealed 64-year-old white male intubated on mechanical ventilation. Awake, follows instructions, but generally weak. Cannot raise his arms or legs against gravity. Head: Atraumatic normocephalic. EENT: PERRLA, EOMI, no icterus, no neck masses, no JVD, no stridor, endotracheal tube and orogastric tube are intact. Lungs: Symmetrical chest expansion, crackles at the bases no rhonchi and no wheezes. Cardiac exam : Normal S1 and S2, no S3 gallop. No murmur. Abdominal exam: Soft nontender no megaly no rebound no guarding. Examination: No clubbing edema or cyanosis. Examination: No rashes Neurologically opens eyes, follows all simple instructions, however the patient is noted to be generally weak. And cannot raise his arms or legs against gravity. Psychiatric: Blunted affect, depressed mood, cannot assess mental status except the patient follows instructions. - Labs CBC & Chem 7: 08/15/19 05:00 08/15/19 05:00 Labs: Abnormal Lab Results - Last 24 Hours (Table) 08/14/19 08/14/19 08/14/19 Range/Units 14:00 18:03 20:35 WBC (3.8-10.6) k/uL RBC (4.30-5.90) m/uL Hgb (13.0-17.5) gm/dL Hct (39.0-53.0) % RDW (11.5-15.5) % Neutrophils # (1.3-7.7) k/uL APTT 41.5 H 48.9 H (22.0-30.0) sec ABG pH (7.35-7.45) ABG pO2 (83-108) mmHg ABG HCO3 (21-25) mmol/L ABG Total CO2 (19-24) mmol/L Carbon Dioxide (22-30) mmol/L BUN (9-20) mg/dL Creatinine (0.66-1.25) mg/dL Glucose (74-99) mg/dL POC Glucose (mg/dL) 127 H (75-99) mg/dL Calcium (8.4-10.2) mg/dL 08/14/19 08/15/19 08/15/19 Range/Units 23:56 05:00 05:00 WBC 16.4 H (3.8-10.6) k/uL RBC 3.59 L (4.30-5.90) m/uL Hgb 9.4 L (13.0-17.5) gm/dL Hct 30.0 L (39.0-53.0) % RDW 17.3 H (11.5-15.5) % Neutrophils # 14.3 H (1.3-7.7) k/uL APTT (22.0-30.0) sec ABG pH (7.35-7.45) ABG pO2 (83-108) mmHg ABG HCO3 (21-25) mmol/L ABG Total CO2 (19-24) mmol/L Carbon Dioxide 32 H (22-30) mmol/L BUN 31 H (9-20) mg/dL Creatinine 0.51 L (0.66-1.25) mg/dL Glucose 123 H (74-99) mg/dL POC Glucose (mg/dL) 128 H (75-99) mg/dL Calcium 7.7 L (8.4-10.2) mg/dL 08/15/19 08/15/19 08/15/19 Range/Units 05:05 05:20 07:40 WBC (3.8-10.6) k/uL RBC (4.30-5.90) m/uL Hgb (13.0-17.5) gm/dL Hct (39.0-53.0) % RDW (11.5-15.5) % Neutrophils # (1.3-7.7) k/uL APTT 41.6 H (22.0-30.0) sec ABG pH 7.52 H (7.35-7.45) ABG pO2 71 L (83-108) mmHg ABG HCO3 33 H (21-25) mmol/L ABG Total CO2 34 H (19-24) mmol/L Carbon Dioxide (22-30) mmol/L BUN (9-20) mg/dL Creatinine (0.66-1.25) mg/dL Glucose (74-99) mg/dL POC Glucose (mg/dL) 125 H (75-99) mg/dL Calcium (8.4-10.2) mg/dL 08/15/19 Range/Units 12:06 WBC (3.8-10.6) k/uL RBC (4.30-5.90) m/uL Hgb (13.0-17.5) gm/dL Hct (39.0-53.0) % RDW (11.5-15.5) % Neutrophils # (1.3-7.7) k/uL APTT (22.0-30.0) sec ABG pH (7.35-7.45) ABG pO2 (83-108) mmHg ABG HCO3 (21-25) mmol/L ABG Total CO2 (19-24) mmol/L Carbon Dioxide (22-30) mmol/L BUN (9-20) mg/dL Creatinine (0.66-1.25) mg/dL Glucose (74-99) mg/dL POC Glucose (mg/dL) 138 H (75-99) mg/dL Calcium (8.4-10.2) mg/dL Microbiology - Last 24 Hours (Table) 08/10/19 09:08 Blood Culture - Preliminary Blood No Growth after 120 hours 08/10/19 09:18 Blood Culture - Preliminary Blood No Growth after 120 hours 08/09/19 11:31 Blood Culture - Preliminary Blood No Growth after 120 hours Assessment and Plan Assessment: Impression: Acute hypoxic and hypercapnic respiratory failure. Suspect aspiration pneumonia. MSSA bacteremia Acute kidney injury, improving. Secondary to acute sepsis. Acute sepsis, and acute lactic acidosis on presentation. Chronic psychiatric disorder/bipolar disorder. Dyslipidemia. Benign essential hypertension. Shock liver. Acute rhabdomyolysis, resolved Pulmonary hypertension. Staph aureus septicemia, MSSA. Hyperchloremic hypernatremia secondary to diarrhea and intravascular volume depletion. Improved with D5W. Acute hepatic/metabolic encephalopathy, Suspect critical illness polyneuropathy/myopathy. Recommendation: Continue ventilatory support, patient was on IMV and pressure support for 24 hours, however since he developed a bit of a setback, I placed him back on assist control mode of mechanical ventilation. We'll try pressure support and CPAP again later today or tomorrow. Clearly the patient is not ready for extubation. Continue nutritional support/enteral feeding. Continue GI and DVT prophylaxis.. Continue antibiotics. Continue amiodarone. Continue metoprolol. Continue IV heparin for atrial fibrillation/chronic Continue to monitor renal and liver profile. Continue to monitor neurological status and hepatic encephalopathy. Prognosis remains guarded. Critical care time is 33 minutes. Time with Patient: Greater than 30
[2019-08-15] MEDS: SODIUM CHLORIDE 0.9% 1,000 ML IV SCH (13:03)
--- NOTE | 2019-08-15 14:47 | P.PN ---
Subjective Patient is admitted for acute hypoxic and hypercapnic respiratory failure which was believed to be secondary to Covid 19 pneumonia patient is presently on FiO2 of 60%. Patient does have related troponin by highly elevated be high d-dimer is of which patient is on anti-correlation dose of the Lovenox. Patient scored 19 is pending patient has chest x-ray findings consistent with the pulmonary edema or atypical pneumonia or Covid 19 pneumonia along with the significant transaminitis elevated highly elevated LDH highly elevated. Ferritin and si gnificant lymphopenia ration continues to have fever. Patient also has acute renal failure secondary to possibly acute tubular necrosis patient is on sodium bicarbonate and D5 because of hyperkalemia. 08/07/2019 Patient the white blood cell count went up to 17,000. His blood cultures are positive for staph aureus we'll repeat the blood cultures tomorrow. Patient liver enzymes are elevated because of shock liver ultrasound did not show significant abnormality. Patient had an elevated ammonia yesterday which is actually better now after lactulose, patient is off pressors. Patient remains on amiodarone. Computed tomography scan of the brain did not show any significant abnormality patient Covid 19 is negative patient remains on cefepime and vancomycin. Primary source is probably lung. Patient has fairly good urine output at 400 mL per hour on volume control ventilation set up respiratory rate of 28 total volume of 450 PEEP of 15 episode of 50% patient's hypercapnic respiratory failure improved and hypoxic respiratory failure improved patient has pH of 7.36 pCO2 of 37 08/07/2028 patient doesn't have any significant clinical improvement remains bacteremic repeat blood cultures are being obtained for today and tomorrow as well. Patient has staph aureus in the blood patient probably will need the transesophageal echocardiogram. Patient is off sedation but is not arousable yet because of which neurology is evaluating the patient and patient is getting EEG patient remains on Vanco mycin cefepime was switched to Zosyn because of concern for aspiration patient aspirin cultures are positive for staph aureus and E. coli along with the species infectious disease is following the patient as well. 08/09/2019 She is still the remains is severely encephalopathic and it and the just withdrawing from painful stimuli off sedation for about 2 days. Patient has severe toxic and metabolic encephalopathy patient is mildly alkalotic patient's present tidal volume is 450 and set up respiratory rate was Down now and patient is breathing over the ventilator and is breathing at around 24/m on an average. FiO2 of 50% PEEP of 10. Patient liver enzymes are bit better patient remains on Zosyn and vancomycin probably vancomycin can be discontinued as patient has MSSA in the blood cultures. Infectious disease is following the patient. Patient white blood cell count remains high patient eventually will need a BRENDA to rule out endocarditis, will plan on this if he has some response on the antibiotics and less encephalopathic and if there is any improvement 08/10/2019 No significant change in his clinical condition including his mental status which it has not improved at patient is hyponatremic because of IV fluids patient is on D5 water now because of hypernatremia and hyperchloremia. Patient remains in the same vent settings as as today remains bacteremic prognosis is extremely poor. Tomorrow we'll discuss with the family regarding overall goals of care. Patient is presently not on pressor support serum creatinine remains stable patient is on amiodarone for atrial fibrillation patient will need repeat blood cultures again tomorrow patient is having thick secretions from the endotracheal to. Patient is presently on Zosyn and vancomycin, rifampin was added patient was started on daily. Because of elevated blood pressure by dev manager 08/11/2019 Independent improvement in his clinical status today daughter is awaiting evaluation by neurologist if patient remains severely encephalopathy Secondary. There is no chance of reasonable neurological recovery she wants to make him comfort care at that time. Patient remains on clevidipine. Patient last 2 blood cultures are negative. 08/11/2022 Patient is still on ventilator support patient the blood cultures are negative so far his bacteremia secondary to pneumonia. Patient is bit more responsive and response to 2 painful stimuli. White blood cell count started improving patient overall has some improvement has good urine output. 08/13/2019 Patient has significant improvement competitors. Patient is much more awake will undergo repeat cultures tomorrow 08/14/2019 Patient is bit more awake appears to have been improving patient will undergo weaning trial later today 08/15/2019 Patient is bit alkalotic today patient failed a weaning trial patient remains on ceftezole and then clindamycin. Patient is still having quite a few secretions now patient is on Alesse sedation patient respiratory than went has come down to 12 because of his respiratory alkalosis. Review Of systems: Unable to obtain due to his clinical condition. All inpatient medications were reviewed and appropriate changes in these medications as dictated in the interval history and assessment and plan. Objective - Vital Signs Vital signs: Vital Signs Temp 98.7 F 08/15/19 12:00 Pulse 68 08/15/19 14:00 Resp 17 08/15/19 14:00 BP 116/54 08/15/19 14:00 Pulse Ox 95 08/15/19 14:00 Intake & Output 08/14/19 08/15/19 08/15/19 18:59 06:59 18:59 Intake Total 9132.735 9349.572 1644.056 Output Total 2004 1245 1860 Balance -368.768 311.572 -215.944 Weight 105.4 kg 105.4 kg Intake: IV 562 412 358 Clindamycin 600 mg In 100 50 50 Dextrose 5% in Water 50 ml @ 50 mls/hr IVPB Q8HR [facility] Rx#:[id number] Pressure bag 72 72 48 Sodium Chloride 0.9% 1, 240 240 160 000 ml @ 10 mls/hr IV . Q24H [facility] Rx#:[id number] ceFAZolin 2 gm In Sodium 150 50 100 Chloride 0.9% 50 ml @ 100 mls/hr IVPB Q8HR [facility] Rx# :[id number] Intake, IV Titration 256.232 232.572 357.056 Amount Heparin Sod,Pork in 0.45% 156.232 132.572 257.056 NaCl 25,000 unit In 0.45 % NaCl 1 250ml.bag @ 12 UNITS/KG/HR 12.732 mls/hr IV .[id number] [facility] Rx#: [id number] Potassium Chloride 20 meq 100 100 100 In Water For Injection 1 100ml.bag @ 50 mls/hr IVPB Q2H [facility] Rx#: [id number] Tube Feeding 568 852 669 Other 250 60 260 Output: Urine 1805 1245 1860 Stool 200 Other: Voiding Method Indwelling Catheter Indwelling Catheter Indwelling Catheter ABP, PAP, CO, CI - Last Documented Arterial Blood Pressure 159/55 - Exam PHYSICAL EXAMINATION: GENERAL: Patient is intubated sedated and vented to settings as mentioned above patient is a FiO2 of 50% PEEP of 15 pedal volume of 450 set up respiratory rate of 28 assist-control ventilation. A HEENT: Pupils are round and equally reacting to light. EOMI. No scleral icterus. No conjunctival pallor. Normocephalic, atraumatic. No pharyngeal erythema. No thyromegaly. CARDIOVASCULAR: S1 and S2 present. No murmurs, rubs, or gallops. PULMONARY: Chest is clear to auscultation, no wheezing or crackles. ABDOMEN: Soft, nontender, nondistended, normoactive bowel sounds. No palpable organomegaly. MUSCULOSKELETAL: No joint swelling or deformity. EXTREMITIES: No cyanosis, clubbing, or pedal edema. NEUROLOGICAL: Gross neurological examination did not reveal any focal deficits. SKIN: No rashes. - Labs CBC & Chem 7: 08/15/19 05:00 08/15/19 05:00 Labs: Abnormal Lab Results - Last 24 Hours (Table) 08/14/19 08/14/19 08/14/19 Range/Units 18:03 20:35 23:56 WBC (3.8-10.6) k/uL RBC (4.30-5.90) m/uL Hgb (13.0-17.5) gm/dL Hct (39.0-53.0) % RDW (11.5-15.5) % Neutrophils # (1.3-7.7) k/uL APTT 48.9 H (22.0-30.0) sec ABG pH (7.35-7.45) ABG pO2 (83-108) mmHg ABG HCO3 (21-25) mmol/L ABG Total CO2 (19-24) mmol/L Carbon Dioxide (22-30) mmol/L BUN (9-20) mg/dL Creatinine (0.66-1.25) mg/dL Glucose (74-99) mg/dL POC Glucose (mg/dL) 127 H 128 H (75-99) mg/dL Calcium (8.4-10.2) mg/dL 08/15/19 08/15/19 08/15/19 Range/Units 05:00 05:00 05:05 WBC 16.4 H (3.8-10.6) k/uL RBC 3.59 L (4.30-5.90) m/uL Hgb 9.4 L (13.0-17.5) gm/dL Hct 30.0 L (39.0-53.0) % RDW 17.3 H (11.5-15.5) % Neutrophils # 14.3 H (1.3-7.7) k/uL APTT (22.0-30.0) sec ABG pH (7.35-7.45) ABG pO2 (83-108) mmHg ABG HCO3 (21-25) mmol/L ABG Total CO2 (19-24) mmol/L Carbon Dioxide 32 H (22-30) mmol/L BUN 31 H (9-20) mg/dL Creatinine 0.51 L (0.66-1.25) mg/dL Glucose 123 H (74-99) mg/dL POC Glucose (mg/dL) 125 H (75-99) mg/dL Calcium 7.7 L (8.4-10.2) mg/dL 08/15/19 08/15/19 08/15/19 Range/Units 05:20 07:40 12:06 WBC (3.8-10.6) k/uL RBC (4.30-5.90) m/uL Hgb (13.0-17.5) gm/dL Hct (39.0-53.0) % RDW (11.5-15.5) % Neutrophils # (1.3-7.7) k/uL APTT 41.6 H (22.0-30.0) sec ABG pH 7.52 H (7.35-7.45) ABG pO2 71 L (83-108) mmHg ABG HCO3 33 H (21-25) mmol/L ABG Total CO2 34 H (19-24) mmol/L Carbon Dioxide (22-30) mmol/L BUN (9-20) mg/dL Creatinine (0.66-1.25) mg/dL Glucose (74-99) mg/dL POC Glucose (mg/dL) 138 H (75-99) mg/dL Calcium (8.4-10.2) mg/dL Microbiology - Last 24 Hours (Table) 08/09/19 11:31 Blood Culture - Final Blood No Growth after 144 hours 08/10/19 09:08 Blood Culture - Preliminary Blood No Growth after 120 hours 08/10/19 09:18 Blood Culture - Preliminary Blood No Growth after 120 hours Assessment and Plan Plan: Acute hypoxic and hypercapnic respiratory failure secondary to sepsis from a staphylococcal bacteremia possible COPD exacerbation. Continue ventilator support with the above-mentioned vent settings continue with inhalational treatments His blood cultures remained positive persistent bacteremia with MSSA. Patient patient will be switched to cefazolin and clindamycin, which provides double coverage for MSSA and also covers aspiration pneumonia if any. -Sepsis shock shock resolved y secondary to staphylococcal pneumonia, patient has persistent bacteremia -Severe toxic encephalopathy from sepsis and septic shock -Acute renal failure possibly acute tubular necrosis patient creatinine improved with IV fluids -Lactic acidosis secondary to sepsis Hypernatremia and hyperchloremia secondary to normal saline which was discontinued and patient received Lasix yesterday. -Hypertension -Hyperlipidemia next and heparin hypertension -Elevated liver enzymes probably secondary to shock liver. -Hepatic encephalopathy: Ammonia level is bit better now. -Troponin leak secondary to myocardial injury from sepsis. -Severe pulmonary hypertension
[2019-08-15] MEDS ORDERED: POTASSIUM BICARBONATE/CIT AC 20 MEQ TABLET.EFF NG-TUBE SCH (16:00)
--- NOTE | 2019-08-15 16:26 | PN ---
PROGRESS NOTE DATE OF SERVICE: 08/15/2019 REASON FOR FOLLOWUP: Pneumonia and bacteremia. INTERVAL HISTORY: The patient is currently afebrile. The patient is hemodynamically stable. FiO2 is currently stable at 50%. No significant purulent secretions in the ET and no diarrhea has been reported. PHYSICAL EXAMINATION: Blood pressure 119/60 with a pulse of 71, temperature 98.7. He is 94% on 50% FiO2. General description is a middle-aged male intubated on the vent. RESPIRATORY SYSTEM: Unlabored breathing with decreased breath sounds at the base. No wheeze. HEART: S1, S2. Regular rate and rhythm. ABDOMEN: Soft. No tenderness. LABS: White count is 16.4, creatinine 0.51. Blood culture has been negative. DIAGNOSTIC IMPRESSION AND PLAN: Patient with acute respiratory failure which is likely multifactorial in this patient who did have a component of aspiration pneumonia. Sputum has been E coli and MSSA. Blood culture also positive for MSSA. The patient is covered with cefazolin and clindamycin; to continue. Follow-up blood culture has been negative. White count is showing a downward trend. To continue and monitor his clinical course closely. MMODL / IJN: [id number] /
[2019-08-15 17:42] LABS: Glucose,Whole Blood 127 mg/dL (75-99)
[2019-08-16 00:30] LABS: Glucose,Whole Blood 113 mg/dL (75-99)
[2019-08-16] MEDS: INSULIN ASPART (NovoLOG) 100 UNIT/ML VIAL SQ SCH ×5 (00:55→23:28)
[2019-08-16] MEDS: CLINDAMYCIN 600 MG in DEXTROSE 5% IN WATER 50 ML IVPB SCH ×8 (00:58→23:34)
[2019-08-16] MEDS: FUROSEMIDE 10 MG/ML 4 ML VIAL IV SCH ×3 (00:58→09:31)
[2019-08-16] MEDS: HYDROmorphone 1 MG/ML 1 ML SYRINGE IVP PRN ×2 (02:16→08:18)
[2019-08-16] MEDS: HEPARIN SOD,PORK IN 0.45% NACL 25,000 UNIT in 0.45% NACL 1 250ML.BAG IV SCH ×2 (03:21→18:01)
[2019-08-16 05:51] LABS: African American GFR (CKD) >90 (>60 ml/min/1.73 sqM); Anion Gap 2 mmol/L; Blood Urea Nitrogen 29 mg/dL (9-20); Carbon Dioxide 35 mmol/L (22-30); Chloride 103 mmol/L (98-107); Glucose 141 mg/dL (74-99); Non-African American GFR(CKD) >90 (>60 ml/min/1.73 sqM); Potassium 3.4 mmol/L (3.5-5.1); Sodium 140 mmol/L (137-145)
[2019-08-16 06:07] LABS: Glucose,Whole Blood 125 mg/dL (75-99)
[2019-08-16 06:09] LABS: Glucose,Whole Blood 146 mg/dL (75-99)
[2019-08-16 06:12] LABS: Anisocytosis Slight; Basophils % (A) 0 %; Eosinophils # (A) 0.1 k/uL (0-0.7); Eosinophils % (A) 1 %; HCT 27.9 % (39.0-53.0); HGB 8.9 gm/dL (13.0-17.5); Hypochromasia Slight; Lymphocytes # (A) 1.2 k/uL (1.0-4.8); Lymphocytes % (A) 8 %; MCHC 31.9 g/dL (31.0-37.0); MCV 84.6 fL (80.0-100.0); Mean Platelet Volume 8.5; Monocytes # (A) 0.7 k/uL (0-1.0); Monocytes % (A) 4 %; Neutrophils # (A) 12.9 k/uL (1.3-7.7); Neutrophils % (A) 86 %; Platelet Count 305 k/uL (150-450); RDW 16.8 % (11.5-15.5)
[2019-08-16] MEDS: POTASSIUM BICARBONATE/CIT AC 20 MEQ TABLET.EFF NG-TUBE SCH ×2 (06:58→08:17)
--- NOTE | 2019-08-16 07:31 | XR ---
EXAMINATION TYPE: XR chest 1V portable DATE OF EXAM: 08/16/2019 Comparison: 08/15/2019 Clinical History: 64-year-old male CHF, vent Findings: Partially visualized reverse left shoulder arthroplasty. ET tube satisfactory. NG tube courses below the diaphragm. Right IJ CVC tip in the upper right atrium. Continued moderate pleural effusions with opacity extending up to the mid lung levels and perihilar and interstitial density. No significant ch joseph from prior. Impression: Stable CHF with interstitial pulmonary edema. Continued moderate pleural effusions with adjacent atel ectasis and/or consolidation.
[2019-08-16 07:37] LABS: ABG Base Excess 11.4 mmol/L; ABG HCO3 34 mmol/L (21-25); ABG PCO2 43 mmHg (35-45); ABG PH 7.52 (7.35-7.45); ABG PO2 86 mmHg (83-108); ABG TCO2 36 mmol/L (19-24); Allen Test Performed? Yes
[2019-08-16 07:39] LABS: ABG Oxygen Saturation 96.8 % (94-97)
[2019-08-16] MEDS: IPRATROPIUM-ALBUTEROL 3 ML NEB INHALATION SCH ×4 (07:50→19:22)
[2019-08-16] MEDS: ASPIRIN 81 MG PO SCH (08:17)
[2019-08-16] MEDS: METOPROLOL TARTRATE 50 MG TAB PO SCH ×3 (08:17→21:12)
[2019-08-16] MEDS: CHLORHEXIDINE GLUCONATE 15 ML CUP MUCOUS MEM SCH (08:17)
[2019-08-16] MEDS: AMIODARONE 200 MG TAB PO SCH ×2 (08:17→21:12)
[2019-08-16] MEDS: PANTOPRAZOLE 40 MG/10 ML VIAL IV SCH (08:18)
[2019-08-16] MEDS: ACETAMINOPHEN TAB 325 MG TAB PO PRN (08:18)
[2019-08-16] MEDS: VALPROIC ACID ORAL SOLN 250 MG/5 ML CUP OG-TUBE SCH (08:18)
[2019-08-16] MEDS ORDERED: FUROSEMIDE 10 MG/ML 4 ML VIAL IV SCH (09:00)
[2019-08-16] MEDS ORDERED: CISATRACURIUM 2 MG/ML 5 ML VIAL IV ONE (09:18)
[2019-08-16 11:59] LABS: Glucose,Whole Blood 127 mg/dL (75-99)
--- NOTE | 2019-08-16 12:00 | P.PN ---
Subjective Progress Note Date: 08/16/19 Principal diagnosis: Acute hypoxic and hypercapnic respiratory failure, secondary to aspiration pneumonia. 62-year-old male patient who was brought into the emergency department today unresponsive and profoundly hypoxic. The patient was in acute hypoxic respiratory failure. Initial pulse ox was in the mid 30s. Apparently he was not also communicating or responding. He was apparently awake and alert on the morning prior to him coming to the hospital according to the landlord. The landlord noted that the patient was appearing ill and called EMS. Upon EMS arrival, the patient was found to be obtunded. He had a fever of 10 1F. He was found to be hypoxic, brought into the emergency room he was found to be tachycardic and hypoxic with was placed on supplemental oxygen without any benefit and ultimately the patient was intubated and placed on a mechanical ventilator. COVID 19 is suspected. The patient was placed on the opposite isolation. The patient had the appropriate nasal swabs. Chest x-ray showed bilateral airspace disease consistent with pneumonia in addition to interstitial pneumonitis. ET tube was around 3.7 cm above the mario. NG tube was extending into the left abdomen. There was a right upper lobe consolidation noted and a tiny right-sided pleural effusion. No evidence of any pneumothorax. There was bilateral infiltrates and coarse interstitium and a prosthetic left shoulder. The patient has a white cell count of 4.9. He had some lymphopenia. His platelet counts is no within normal limits. The blood gases was done on 100% nonrebreather showed a pH of 7.17 with a pCO2 of 66 and pO2 of 45. The patient also had an acute kidney injury with a creatinine of 1.65. Epigastric level was at 3.1. The ALT is at 1106 with an ammonia level of 146 and a bilirubin of 0.5 and an albumin of 4.1. The serum alcohol was negative and the patient has negative salicylates and acetaminophen. Influenza screen has been negative. Covid 19 analysis still pending for now. This patient lives with a sister in a house and he collects Social Security disability. He has had issues with mental health and the patient has been dealing with bipolar disorder and chronic insomnia of many years duration. He has also chronic anxiety disorder. No history of any previous suicidal ideation or intent. No delusions or hallucinations based on recent psychiatric evaluation that was in the hospital. On today's evaluation of 62,020 the patient is being seen in follow-up in the intensive care unit. Noted the patient is intubated on a mechanical ventilator and is suspected to have Covid 19. He is afebrile on today's evaluation. He remains on a mechanical ventilator. He is sedated with propofol running at 20 mg per KG per minute. He was given a total of 5 L of IV fluid as the patient was hypotensive and currently the fluid is running at 75 mL an hour of normal saline. He remains on norepinephrine infusion at 0.08 mg per KG per minute. He remains on a mechanical ventilator. His assist-control mode at the rate of 28 with a tidal volume of 450 and FiO2 of 60% with a PEEP of 15. His blood gases showed a pH of 7.12 with a pCO2 of 58 and pO2 of 187. This was done and FiO2 of 100%. Otherwise, the patient has blood abnormalities it is consistent with Covid 19 infection. He has a rhabdomyolysis with a CPK level of 6114. He has also transaminitis with a AST of 3354, ALT of 1962, and his LDH level is at 8367. His creatinine is at 1.2, which is up from a baseline of 1.65 with fluid resuscitation. His current minute ventilation is 13 L. I made recommendations to keep the same vent setting. Based on the blood on of some non-anion gap metabolic acidosis, and with recommendations to start the patient on bicarb infusion and addition to 2 A of IV bicarb pushes. He was having temperatures throughout the night with temperature maximum 100.8. Current temperature is 99.6. He'll be started on enteral feeding for nutritional support. Covid 19 evaluation is still pending for now. On today's evaluation of 08/07/2019 and seeing this patient for a follow-up. The patient has sedated with propofol. He was given a sedation holiday yesterday and his neurologic exam was suboptimal as the patient did not show adequate neurologic recovery. Based on that, a CAT scan of the brain was done and the CAT scan of the brain was negative for any acute abnormalities. Noted the patient was profoundly hypoxic and at time of admission to the hospital and there is a suspicion for hypoxic encephalopathy. Contrary to my expectations, the patient checked negative for Covid 19 infection. The blood culture came back positive for staph aureus. Currently is on a combination of cefepime and vancomycin. The patient was resuscitated with more than 5 L of normal saline and the patient is also requiring some pressors for hemodynamic support and levo fed was started and 8 on was placed on hold as of 5:00 this morning. Urine output in the order of 40 mL an hour. In terms of sedation, the patient is on propofol at 20 g per KG per minute. Note that the patient had issues with a significant leak around his orotracheal tube. This was replaced yesterday by [employer]ENOGR[employer] REPORTER without any major difficulties. This morning, he remains on a VC plus mode with a rate of 28 and a tidal volume of 450 and a nighttime of 1 second with a PEEP of 15 with an FiO2 of 50%. Blood gases from today showed a pH of 7.36 with a pCO2 of 37 and pO2 of 92. Chest x-ray showing diffuse bilateral pulmonary infiltrates. His cardiac rhythm is still in atrial fibrillation. He is on amiodarone maintenance at 0.5 mg per minute. The patient has a creatinine of 1 .5. There is still evidence of transaminitis with elevation of the AST and ALP and both are improving. LDH level is elevated at 5738. CPKs improving at 2431. C-reactive protein is elevated at 622. Note that the LDH is on the decline, CPKs on the decline on today's evaluation. LFTs are also improving. On 08/08/2019 on seeing this patient for a follow-up. The patient has been off sedation since yesterday. I am not seeing an adequate neurologic recovery in this patient. There may be a component of hepatic encephalopathy in the patient's went into shock liver. Nevertheless, his ammonia is dropping. He is on lactulose. He is producing adequate amount of bowel activity. He is undergo ing training the painful stimulation. Pupils are about 3 mm in size and there is C-reactive to light. There is a very weak cough and a gag. Absolutely no response to deep painful stimulation. No seizure activity has been noted. Neurology will be consulted on the case. EEG will be ordered. Meanwhile, the patient is clearly becoming a case of possible aspiration staphylococcal pneumonia. His blood culture came back positive for staph aureus. His sputum positive for staph. He also has gram-negative bacillus in his sputum which clipper and turner to be E. coli. For now, the cultures and the blood to be MSSA. The patient was on examination of cefepime and vancomycin. I dropped the cefepime and I utilized Zosyn to give him better anaerobic coverage as the patient clearly has a history of aspiration. Meanwhile, the Covid test came back negative. The patient remains on a mechanical ventilator. On today's chest x-ray there is worsening over the bilateral pulmonary infiltrates worse on the right. ET tube remains in a good location. The patient remains on an assist-control mode at the rate of 18 with a tidal volume of 450 and FiO2 of 50% with a PEEP of 10. Blood gas showed a pH of 7.46 with a pCO2 of 34 and pO2 of 103. CVP is ranging between 12 and 14. He remains in atrial fibrillation. He is on amiodarone drip maintenance at 0.5 mg per minute. He is also on normal saline at the rate of 75 mL an hour. His age fibrillation is under better control and he is on no pressors. He can tolerate beta blockers. He is having low-grade fever still. The white cell count is up to 22. The shock liver is improving including the AST and ALP level. The LDH level was elevated. The CPKs also improving is down to 2431. His ammonia level is down to 85. His coagulation profile is within normal limits. On 08/09/2019 the patient is being seen in follow-up in intensive care unit. Unfortunately, the patient has been off sedation for more than 24 hours and the patient is still not showing significant neurologic recovery. The patient is not following any specific commands. In fact he is not even withdrawing to deep painful stimulation. No seizure activity has been noted. EEG was done and showed diffuse slowing and it was consistent with severe encephalopathy which could be toxic metabolic encephalopathy versus hypoxic encephalopathy. The patient will be kept off sedation. Meanwhile, the ammonia level is progressively coming down and is down to 58. He continues to have a week cough and gag reflex. The patient remains in atrial fibrillation. The patient remained on assist control mode of ventilation. He is on VC plus mode at the rate of 28 with a tidal volume of 450 and FiO2 of 50% with a PEEP of 10. The blood gases from today shows a component of respiratory alkalosis with a pH of 7.5 with a pCO2 of 36 and pO2 of 71. The white cell count of 23. The patient has developed some hyperchloremic hypernatremia in the sodium level is up to 147 with a chloride of 114. Renal function is stable. The patient is receiving vital high protein at the rate of 52 mL an hour. In terms of atrial fibrillation, I had utilized back the amiodarone drip at 0.5 mg per minute and the patient is also on metoprolol 50 mg by mouth 3 times a day. Heart rate is still slightly tachycardic and will continue the same regimen for now. The patient was given a dose of Lasix yesterday. The patient Is producing better urine output for now. His weight is still up. The CPKs down to 395. The AST is down to 1000. ALT is down to 58. LDH is down to 03/10/2007. Calcium level at 7.1. No other significant issues otherwise over the past 24 hours. He remains on a combination of Zosyn and vancomycin. The blood culture and the sputum culture was positive for MSSA. The sputum culture was positive for E. coli. The chest x-ray still showing rather consolidation worse on the right compared to the left. ET tube remains in a good location. On 08/10/2019 the patient has been approximately 72 hours of sedation. Unfortunately, we do not see any significant neurologic recovery the patient's condition. He is still not responding to any verbal or deep painful stimulatio n. He remains completely unresponsive. On this morning, I have a mild assist- control mode of ventilation with a VC plus mode at a tidal volume of 450 FiO2 of 50% with a PEEP of 10 and the respiratory rate of 24. His blood gases showed a component of respiratory alkalosis. His pH is at 7.53 with a pCO2 of 39 pO2 of 63. Chest x-ray still showing bilateral pneumonia bilateral airspace disease wo rse on the right along with cardiomegaly and bilateral pleural effusions. ET tube is in a good location. The patient's white cell count is at 27. The patient is still having episodes of fever. Most recent blood culture from 2 days ago was positive for MSSA and MSSA was also cultured and his lungs and it was cultured also E. coli in his lungs. We are still thinking that this was an aspiration pneumonia. Shock liver, his LFTs are nearly normalized, severe has also dropped and ammonia level is being monitored is still elevated at 83. The lactulose was held as the patient was having liquidy stool and the patient had become also hyperchloremic and the sodium level is up to 149. He is receiving free water supplements with NG for now. He is also on vital high protein. In terms of his atrial fibrillation, rate is under better control with a combination of amiodarone maintenance of 0.5 mg per minute and Cardizem drip at 10 mg an hour. The patient is also on IV heparin. The active issue for now is his altered mentation. On 08/11/2019, I'm seeing the patient for a follow-up in intensive care unit. His been off sedation for the past 92 hours. On today's evaluation that is some slight grimacing upon very deep painful stimulation and upon pinching on his upper chest. For the most part he remains unresponsive. No seizure activity. Shock liver has recovered. Ammonia level is on the decline. I started the patient on rifixamine 550 mg by mouth twice a day yesterday and ammonia level is down to 45. I suspect a component of hypoxic encephalopathy although the possibility of metabolic encephalopathy cannot be completely ruled out. He is on a mechanical ventilator. No change in the vent setting. No changes in the x-ray findings as the patient has extensive airspace disease bilaterally more so on the right lower lobe. On the ventilator, the patient is on a VC plus mode with a tidal volume of 450 and FiO2 of 50% with a PEEP of 10 and tidal volume of 450 with a rate of 16. The patient's blood gas showed a pH of 7.52 with a pCO2 of 39 and pO2 of 67. On and off he was still having fever yesterday. Repeat blood cultures were sent. He remains on examination Zosyn and vancomycin. He is tolerating his enteral feeding for nutritional support. Is on IV heparin d rip regarding his atrial fibrillation. He remains on amiodarone drip and oral metoprolol for rate control. He is also started on Cleviprex which is running at 2 mg an hour for tighter blood pressure control. The active issue remains his altered mentation with a possibility of him having hypoxic encephalopathy with the details as mentioned above. Patient was reevaluated today on 08/12/19, remains on mechanical ventilation, his ventilator settings are assist control rate 16 volume control plus at 450 FiO2 at 50% and PEEP of 10. ABG showed a pO2 of 79 pCO2 of 39 pH of 7.52. Chest x- ray continues to show bilateral pleural effusions, and by basilar space disease, hence I recommended ultrasound to evaluate for possible thoracentesis if the effusion isn't large enough to be drained. However the ultrasound showed minimal pleural effusions bilaterally, insufficient for thoracentesis. Patient remains on Zosyn and vancomycin, and he hasn't MSSA bacteremia, sputum is positive for E. coli and staph aureus. Neurologically the patient is about the same, however the only change noted today is the fact that the patient tries to open his eyes and grimacing upon deep painful stimuli. Remains off narcotics and sedatives. WBC count is up to 25.3 today slightly improved compared to yesterday. Basic metabolic profile is basically normal and his BUN is improving down to 38 creatinine is 0.55. Liver enzymes are steadily improving. Ammonia is 60 today. It was as high as 146 about a week ago remains on rifaximin. Reevaluated today 08/13/19, patient remains in the ICU, intubated and mechanically ventilated. Yesterday the patient had significant agitation and he had to be placed back on propofol. This morning the propofol was discontinued, and the patient seems to be more responsive to stimuli/verbal stimuli patient is opening his eyes, wiggling his toes, seems to be slow but at least the best I have seen him so far. Hence I kept the propofol off, and I will give the patient a chance to go on a weaning trial if possible. He is not quite ready to start weaning but we will continue to hold propofol and address hourly today for possible placement on pressure support and CPAP. Presently the patient is on mechanical ventilation with assist control rate of 16, volume is 450 FiO2 dropped down from 60% to 50% and his PEEP was decreased to 8. His ABG this morning showed a pO2 of 124 pCO2 of 48 pH of 7.44 patient is on propofol which is presently on hold. He is on clindamycin and for his MSSA bacteremia. He is on enteral tube feeding. Chest x-ray continues to show small areas of pneumonia bilaterally, and possibly a small right sided pleural effusion not large enough to consider thoracentesis as noted on ultrasound On 08/14/2019 patient seen in follow-up, in the intensive care unit, she remains intubated, on mechanical ventilator, on assist control mode of ventilation with FiO2 of 50%. This morning blood gases showed pO2 of 112, pCO2 45, and pH of 7.48. IV 0.9 normal saline at a rate of 10 ML per hour, heparin per weight- based protocol, and Diprivan has been on hold. Patient is lethargic although she is waking up and follow commands, wiggling toes on command. Appears to be in no acute distress, today's chest x-ray has been reviewed showing diffuse ple ural parenchymal changes consistent with pulmonary edema or ARDS. Patient continues on Kefzol and Clindamycin for MSSA and E. coli pneumonia and bacteremia, follow-up blood cultures have been negative. Patient has been afebrile, hemodynamically stable, not on any vasopressors, today's labs have be en reviewed, leukocytosis is down trending, WBC is down to 18.7, hemoglobin is 9.7, sodium is 142, potassium is 3.3, chloride is 108, CO2 32, BUN is 37 and creatinine 0.53. Patient in sinus rhythm, he remains on oral amiodarone, and heparin infusion for anticoagulation. Diuretics with Lasix 40 mg every 12 hours Patient was evaluated today on 08/15/19, remains intubated and mechanically ventilated. Patient tolerated basically 24 hours of pressure support of 10, IMV of 6 and FiO2 at 50%. However when the patient was switched to pressure support of 10 and CPAP, he was noted to have shallow breathing, his tidal volume was noted to be low, and the patient was building up with secretions into the endotracheal tube. He was suctioned but he was noted to be in a bit of distress, hence I recommended placing the patient back on assist control mode of mechanical ventilation, and obviously is not quite ready to be weaned and extubated. His ventilator settings are basically the same, unchanged from yesterday. He was on to this morning on IMV of 6 and pressure support of 10 with FiO2 at 50%. Hence I recommended not to wean and extubate today. Patient is not quite ready because he didn't tolerate the pressure support with CPAP trial. I did increase his Lasix since his chest x-ray is showing a bit of worsening of his bilateral pulmonary edema/infiltrates, Lasix was increased to 40 mg IV push every 8 hours on a trial basis. Patient remains awake, he seems to be generally weak, he follows simple instructions, but he is so weak and I'm suspecting that the patient has critical illness polyneuropathy. Reevaluated today on 08/16/19, patient remains intubated, and mechanically ventilated. Patient is on assist control rate of 12 FiO2 is 50% tidal volume is 450 PEEP of 5. ABG showed a pO2 of 86 pCO2 of 43 pH of 7.52. Patient is responding to diuretics, and his Lasix and is at 40 mg IV push every 8 hours, chest x-ray is worse. Bilateral airspace disease is noted, hence I recommended bronchoscopy and bronchial alveolar lavage which was done today. There was evidence of thick. Secretions and review these were sent for different cultures. Patient is arousable, follows very simple instructions, but he seems to be generally weak. Remains in sinus rhythm, hemodynamically stable, he is on tube feeds, and he is on the propofol which I will discontinue after the bronchoscopy. His fluid balance is -769. His IV fluids at KVO. Remains on heparin drip. After reviewing his ABG and his electrolytes, I cut down his Lasix to once daily, and I added Diamox 250 mg IV push every 12 hours. Objective - Vital Signs Vital signs: Vital Signs Temp 100.1 F H 08/16/19 08:00 Pulse 68 08/16/19 11:50 Resp 12 08/16/19 11:00 BP 102/53 08/16/19 10:00 Pulse Ox 91 L 08/16/19 10:00 Intake & Output 08/15/19 08/16/19 08/16/19 18:59 06:59 18:59 Intake Total 2535.530 1589.929 574.219 Output Total 3025 1870 525 Balance -489.470 -280.071 49.219 Weight 105.4 kg 105 kg Intake: IV 562 321 155 Clindamycin 600 mg In 100 50 50 Dextrose 5% in Water 50 ml @ 50 mls/hr IVPB Q8HR [facility] Rx#:[id number] Pressure bag 72 51 15 Sodium Chloride 0.9% 1, 240 170 40 000 ml @ 10 mls/hr IV . Q24H [facility] Rx#:[id number] ceFAZolin 2 gm In Sodium 150 50 50 Chloride 0.9% 50 ml @ 100 mls/hr IVPB Q8HR [facility] Rx# :[id number] Intake, IV Titration 579.530 237.929 136.219 Amount Heparin Sod,Pork in 0.45% 479.530 237.929 128.929 NaCl 25,000 unit In 0.45 % NaCl 1 250ml.bag @ 12 UNITS/KG/HR 12.732 mls/hr IV .[id number] [facility] Rx#: [id number] Potassium Chloride 20 meq 100 In Water For Injection 1 100ml.bag @ 50 mls/hr IVPB Q2H [facility] Rx#: [id number] Propofol 1,000 mg In 7.29 Empty Bag 1 bag @ Titrate IV .Q0M [facility] Rx#: [id number] Tube Feeding 974 731 183 Other 420 300 100 Output: Urine 2925 1870 525 Stool 100 Other: Voiding Method Indwelling Catheter Indwelling Catheter Indwelling Catheter ABP, PAP, CO, CI - Last Documented Arterial Blood Pressure 109/50 - Exam Gen. appearance, revealed 64-year-old white male intubated on mechanical ventilation. Noted to be extremely weak but arousable and follows simple instructions Head: Atraumatic normocephalic. EENT: PERRLA, EOMI, no icterus, no neck masses, no JVD, no stridor, endotracheal tube and orogastric tube are intact. Lungs: Symmetrical chest expansion, crackles at the bases no rhonchi and no whee zes. Cardiac exam : Normal S1 and S2, no S3 gallop. No murmur. Abdominal exam: Soft nontender no megaly no rebound no guarding. Examination: No clubbing edema or cyanosis. Examination: No rashes Neurologically opens eyes to verbal stimuli. follows all simple instructions, however the patient is noted to be generally weak. And cannot raise his arms or legs against gravity. Psychiatric: Blunted affect, depressed mood, cannot assess mental status except the patient follows instructions. - Labs CBC & Chem 7: 08/16/19 05:30 08/16/19 05:30 Labs: Abnormal Lab Results - Last 24 Hours (Table) 08/15/19 08/15/19 08/15/19 Range/Units 12:06 15:07 17:41 WBC (3.8-10.6) k/uL RBC (4.30-5.90) m/uL Hgb (13.0-17.5) gm/dL Hct (39.0-53.0) % RDW (11.5-15.5) % Neutrophils # (1.3-7.7) k/uL APTT 63.6 H (22.0-30.0) sec ABG pH (7.35-7.45) ABG HCO3 (21-25) mmol/L ABG Total CO2 (19-24) mmol/L Potassium (3.5-5.1) mmol/L Carbon Dioxide (22-30) mmol/L BUN (9-20) mg/dL Creatinine (0.66-1.25) mg/dL Glucose (74-99) mg/dL POC Glucose (mg/dL) 138 H 127 H (75-99) mg/dL Calcium (8.4-10.2) mg/dL 08/16/19 08/16/19 08/16/19 Range/Units 00:28 05:30 05:30 WBC 15.0 H (3.8-10.6) k/uL RBC 3.30 L (4.30-5.90) m/uL Hgb 8.9 L (13.0-17.5) gm/dL Hct 27.9 L (39.0-53.0) % RDW 16.8 H (11.5-15.5) % Neutrophils # 12.9 H (1.3-7.7) k/uL APTT (22.0-30.0) sec ABG pH (7.35-7.45) ABG HCO3 (21-25) mmol/L ABG Total CO2 (19-24) mmol/L Potassium 3.4 L (3.5-5.1) mmol/L Carbon Dioxide 35 H (22-30) mmol/L BUN 29 H (9-20) mg/dL Creatinine 0.51 L (0.66-1.25) mg/dL Glucose 141 H (74-99) mg/dL POC Glucose (mg/dL) 113 H (75-99) mg/dL Calcium 8.0 L (8.4-10.2) mg/dL 08/16/19 08/16/19 08/16/19 Range/Units 05:30 06:05 06:08 WBC (3.8-10.6) k/uL RBC (4.30-5.90) m/uL Hgb (13.0-17.5) gm/dL Hct (39.0-53.0) % RDW (11.5-15.5) % Neutrophils # (1.3-7.7) k/uL APTT 46.5 H (22.0-30.0) sec ABG pH (7.35-7.45) ABG HCO3 (21-25) mmol/L ABG Total CO2 (19-24) mmol/L Potassium (3.5-5.1) mmol/L Carbon Dioxide (22-30) mmol/L BUN (9-20) mg/dL Creatinine (0.66-1.25) mg/dL Glucose (74-99) mg/dL POC Glucose (mg/dL) 125 H 146 H (75-99) mg/dL Calcium (8.4-10.2) mg/dL 08/16/19 Range/Units 07:32 WBC (3.8-10.6) k/uL RBC (4.30-5.90) m/uL Hgb (13.0-17.5) gm/dL Hct (39.0-53.0) % RDW (11.5-15.5) % Neutrophils # (1.3-7.7) k/uL APTT (22.0-30.0) sec ABG pH 7.52 H (7.35-7.45) ABG HCO3 34 H (21-25) mmol/L ABG Total CO2 36 H (19-24) mmol/L Potassium (3.5-5.1) mmol/L Carbon Dioxide (22-30) mmol/L BUN (9-20) mg/dL Creatinine (0.66-1.25) mg/dL Glucose (74-99) mg/dL POC Glucose (mg/dL) (75-99) mg/dL Calcium (8.4-10.2) mg/dL Microbiology - Last 24 Hours (Table) 08/10/19 09:18 Blood Culture - Final Blood No Growth after 144 hours 08/10/19 09:08 Blood Culture - Final Blood No Growth after 144 hours 08/15/19 11:00 Gram Stain - Preliminary Sputum Sputum Culture - Preliminary 08/09/19 11:31 Blood Culture - Final Blood No Growth after 144 hours Assessment and Plan Assessment: Impression: Acute hypoxic and hypercapnic respiratory failure. Suspect aspiration pneumonia. MSSA bacteremia Acute kidney injury, improving. Secondary to acute sepsis. Acute sepsis, and acute lactic acidosis on presentation. Chronic psychiatric disorder/bipolar disorder. Dyslipidemia. Benign essential hypertension. Shock liver. Improved. Acute rhabdomyolysis, resolved Pulmonary hypertension. Staph aureus septicemia, MSSA. Hyperchloremic hypernatremia secondary to diarrhea and intravascular volume depletion. Improved with D5W. Acute hepatic/metabolic encephalopathy, Suspect critical illness polyneuropathy/myopathy. Status post bronchoscopy and BAL on 08/16/19. Recommendation: Continue ventilatory support, however the patient will be given a trial of weaning again this afternoon by switching him to IMV and pressure support or po ssibly pressure support and CPAP Continue nutritional support/enteral feeding. Continue GI and DVT prophylaxis.. Continue antibiotics. Continue amiodarone. Continue metoprolol. Continue IV heparin for atrial fibrillation/chronic Prognosis remains guarded. Critical care time is 32 minutes. Not including the time spent on his bronchoscopy/procedure We'll continue to follow, and daily sedation interruption/holidays will be done Time with Patient: Greater than 30
[2019-08-16 12:20] LABS: ABG Base Excess 12.3 mmol/L; ABG HCO3 36 mmol/L (21-25); ABG Oxygen Saturation 96.7 % (94-97); ABG PCO2 49 mmHg (35-45); ABG PH 7.47 (7.35-7.45); ABG PO2 92 mmHg (83-108); ABG TCO2 38 mmol/L (19-24); Allen Test Performed? Yes
[2019-08-16 13:51] LABS: Appearance,BF Cloudy; Color,BF Pink
[2019-08-16 13:52] LABS: Nucleated Cells, Body Fluid 690 /uL; RBC, Body Fluid 1230 /uL
[2019-08-16] MEDS: SODIUM CHLORIDE 0.9% 1,000 ML IV SCH (13:53)
[2019-08-16 13:57] LABS: Mononuclear WBC,Body Fluid 8 %; Polynuclear WBC,Body Fluid 92 %; Total Cells Counted,Body Fluid 100
--- NOTE | 2019-08-16 15:46 | PN ---
PROGRESS NOTE DATE OF SERVICE: 08/16/2019 REASON FOR FOLLOWUP: Aspiration pneumonia and bacteremia. INTERVAL HISTORY: The patient is currently afebrile. The patient has been extubated. He is breathing comfortably on nasal cannula oxygen. Slightly weak and lethargic, though. Denies any chest pain. Occasional cough. No vomiting or any diarrhea. PHYSICAL EXAMINATION: Blood pressure 133/54 with a pulse of 62, temperature 98.6. He is 96% on 4 L nasal cannula. General description is an elderly male lying in bed in no distress. RESPIRATORY SYSTEM: Unlabored breathing with decreased breath sounds at the base. No wheeze. HEART: S1, S2. Regular rate and rhythm. ABDOMEN: Soft. No tenderness. LABS: Hemoglobin 8.9, white count 15.0, BUN of 29, creatinine 0.51. Blood culture repeat has been negative. DIAGNOSTIC IMPRESSION AND PLAN: Patient with acute respiratory failure which is multifactorial in this patient who did have a component of aspiration pneumonia with methicillin-susceptible Staphylococcus aeruginosa bacteremia. The patient is covered with cefazolin and clindamycin; to continue while monitoring his clinical course closely. Continue with supportive care. MMODL / IJN: [id number] /
--- NOTE | 2019-08-16 17:35 | OP ---
OPERATIVE REPORT OPERATIVE PROCEDURE: Bronchoscopy and bronchoalveolar lavage of both lungs. PREOPERATIVE DIAGNOSIS: Bilateral pneumonia and failure to wean. POSTOPERATIVE DIAGNOSIS: Bilateral pneumonia and failure to wean. ANESTHESIA USED: The patient received propofol in the form of propofol drip, and he received one dose of Nimbex 7 mg IV push x1. PROCEDURE DESCRIPTION: Patient was placed in supine position. He was already on mechanical ventilation. We monitored his oxygen saturation continuously. Blood pressure was continuously monitored via arterial line and cardiac rhythm was continuously monitored. After adequate sedation, the patient was laid in a supine position, and the bronchoscope was advanced through the adapter of the endotracheal tube into the distal end of the endotracheal tube. As soon as the right mainstem and left mainstem bronchi were visualized, there was clearly evidence of thick purulent secretions in both mainstems. A thorough examination was done, and I was able to suction all the purulent secretions from the right side by doing a bronchoalveolar lavage of the right upper lobe, right middle lobe and right lower lobe. All the purulent secretions were suctioned. I then moved onto the left side. Similar findings were noted; mostly purulent secretions in the airways. Lavage was done using saline, and I was able to clear all the purulent secretions from left upper lobe lingula and left lower lobe. The procedure was well tolerated. The fluid obtained was sent for different diagnostic studies. No evidence of any immediate complications. MMODL / IJN: [id number] /
[2019-08-16 18:20] LABS: Glucose,Whole Blood 90 mg/dL (75-99)
[2019-08-16 23:26] LABS: Glucose,Whole Blood 102 mg/dL (75-99)
[2019-08-17] MEDS: HEPARIN SOD,PORK IN 0.45% NACL 25,000 UNIT in 0.45% NACL 1 250ML.BAG IV SCH ×2 (04:05→15:51)
[2019-08-17 06:04] LABS: Glucose,Whole Blood 87 mg/dL (75-99)
--- NOTE | 2019-08-17 06:37 | XR ---
EXAMINATION TYPE: XR chest 1V portable DATE OF EXAM: 08/17/2019 HISTORY: pleural effusion. REFERENCE: Previous study dated 08/16/2019. FINDINGS: The left shoulder arthroplasties in place. A right internal jugular catheter is in place. I ts tip is in the right atrium. Heart size is obscured. There is vascular congestion present. There is bilateral airspace disease. Th ere are bilateral effusions present. IMPRESSION: CONTINUING CHANGES OF CONGESTIVE HEART FAILURE, NOT SIGNIFICANTLY CHANGED FROM PREVIOUS.
[2019-08-17 06:54] LABS: Anisocytosis Slight; Basophils % (A) 0 %; Eosinophils % (A) 0 %; HCT 27.7 % (39.0-53.0); HGB 8.5 gm/dL (13.0-17.5); Hypochromasia Slight; Lymphocytes % (A) 8 %; MCH 26.2 pg (25.0-35.0); MCHC 30.5 g/dL (31.0-37.0); MCV 85.8 fL (80.0-100.0); Mean Platelet Volume 7.8; Monocytes # (A) 0.6 k/uL (0-1.0); Monocytes % (A) 5 %; Neutrophils # (A) 9.9 k/uL (1.3-7.7); Neutrophils % (A) 85 %; Platelet Count 366 k/uL (150-450); RBC 3.23 m/uL (4.30-5.90); RDW 17.1 % (11.5-15.5); WBC 11.7 k/uL (3.8-10.6)
[2019-08-17 08:31] LABS: African American GFR (CKD) >90 (>60 ml/min/1.73 sqM); Anion Gap 5 mmol/L; Blood Urea Nitrogen 21 mg/dL (9-20); Calcium 7.9 mg/dL (8.4-10.2); Carbon Dioxide 24 mmol/L (22-30); Chloride 111 mmol/L (98-107); Glucose 96 mg/dL (74-99); Non-African American GFR(CKD) >90 (>60 ml/min/1.73 sqM); Potassium 3.7 mmol/L (3.5-5.1); Sodium 140 mmol/L (137-145)
[2019-08-17] MEDS: IPRATROPIUM-ALBUTEROL 3 ML NEB INHALATION SCH ×4 (08:36→20:41)
[2019-08-17] MEDS: INSULIN ASPART (NovoLOG) 100 UNIT/ML VIAL SQ SCH ×3 (09:23→21:34)
[2019-08-17] MEDS: CLINDAMYCIN 600 MG in DEXTROSE 5% IN WATER 50 ML IVPB SCH ×4 (09:58→15:57)
[2019-08-17] MEDS: AMIODARONE 200 MG TAB PO SCH ×2 (09:58→21:40)
[2019-08-17] MEDS: ASPIRIN 81 MG PO SCH (09:58)
[2019-08-17] MEDS: PANTOPRAZOLE 40 MG/10 ML VIAL IV SCH (09:58)
[2019-08-17] MEDS: FUROSEMIDE 10 MG/ML 4 ML VIAL IV SCH (09:58)
[2019-08-17] MEDS: METOPROLOL TARTRATE 50 MG TAB PO SCH ×3 (09:59→21:40)
--- NOTE | 2019-08-17 10:35 | P.PN ---
Subjective Progress Note Date: 08/17/19 Principal diagnosis: Acute hypoxic and hypercapnic respiratory failure, secondary to aspiration pneumonia. 62-year-old male patient who was brought into the emergency department today unresponsive and profoundly hypoxic. The patient was in acute hypoxic respiratory failure. Initial pulse ox was in the mid 30s. Apparently he was not also communicating or responding. He was apparently awake and alert on the morning prior to him coming to the hospital according to the landlord. The landlord noted that the patient was appearing ill and called EMS. Upon EMS arrival, the patient was found to be obtunded. He had a fever of 10 1F. He was found to be hypoxic, brought into the emergency room he was found to be tachycardic and hypoxic with was placed on supplemental oxygen without any benefit and ultimately the patient was intubated and placed on a mechanical ventilator. COVID 19 is suspected. The patient was placed on the opposite isolation. The patient had the appropriate nasal swabs. Chest x-ray showed bilateral airspace disease consistent with pneumonia in addition to interstitial pneumonitis. ET tube was around 3.7 cm above the mario. NG tube was extending into the left abdomen. There was a right upper lobe consolidation noted and a tiny right-sided pleural effusion. No evidence of any pneumothorax. There was bilateral infiltrates and coarse interstitium and a prosthetic left shoulder. The patient has a white cell count of 4.9. He had some lymphopenia. His platelet counts is no within normal limits. The blood gases was done on 100% nonrebreather showed a pH of 7.17 with a pCO2 of 66 and pO2 of 45. The patient also had an acute kidney injury with a creatinine of 1.65. Epigastric level was at 3.1. The ALT is at 1106 with an ammonia level of 146 and a bilirubin of 0.5 and an albumin of 4.1. The serum alcohol was negative and the patient has negative salicylates and acetaminophen. Influenza screen has been negative. Covid 19 analysis still pending for now. This patient lives with a sister in a house and he collects Social Security disability. He has had issues with mental health and the patient has been dealing with bipolar disorder and chronic insomnia of many years duration. He has also chronic anxiety disorder. No history of any previous suicidal ideation or intent. No delusions or hallucinations based on recent psychiatric evaluation that was in the hospital. On today's evaluation of 62,020 the patient is being seen in follow-up in the intensive care unit. Noted the patient is intubated on a mechanical ventilator and is suspected to have Covid 19. He is afebrile on today's evaluation. He remains on a mechanical ventilator. He is sedated with propofol running at 20 mg per KG per minute. He was given a total of 5 L of IV fluid as the patient was hypotensive and currently the fluid is running at 75 mL an hour of normal saline. He remains on norepinephrine infusion at 0.08 mg per KG per minute. He remains on a mechanical ventilator. His assist-control mode at the rate of 28 with a tidal volume of 450 and FiO2 of 60% with a PEEP of 15. His blood gases showed a pH of 7.12 with a pCO2 of 58 and pO2 of 187. This was done and FiO2 of 100%. Otherwise, the patient has blood abnormalities it is consistent with Covid 19 infection. He has a rhabdomyolysis with a CPK level of 6114. He has also transaminitis with a AST of 3354, ALT of 1962, and his LDH level is at 8367. His creatinine is at 1.2, which is up from a baseline of 1.65 with fluid resuscitation. His current minute ventilation is 13 L. I made recommendations to keep the same vent setting. Based on the blood on of some non-anion gap metabolic acidosis, and with recommendations to start the patient on bicarb infusion and addition to 2 A of IV bicarb pushes. He was having temperatures throughout the night with temperature maximum 100.8. Current temperature is 99.6. He'll be started on enteral feeding for nutritional support. Covid 19 evaluation is still pending for now. On today's evaluation of 08/07/2019 and seeing this patient for a follow-up. The patient has sedated with propofol. He was given a sedation holiday yesterday and his neurologic exam was suboptimal as the patient did not show adequate neurologic recovery. Based on that, a CAT scan of the brain was done and the CAT scan of the brain was negative for any acute abnormalities. Noted the patient was profoundly hypoxic and at time of admission to the hospital and there is a suspicion for hypoxic encephalopathy. Contrary to my expectations, the patient checked negative for Covid 19 infection. The blood culture came back positive for staph aureus. Currently is on a combination of cefepime and vancomycin. The patient was resuscitated with more than 5 L of normal saline and the patient is also requiring some pressors for hemodynamic support and levo fed was started and 8 on was placed on hold as of 5:00 this morning. Urine output in the order of 40 mL an hour. In terms of sedation, the patient is on propofol at 20 g per KG per minute. Note that the patient had issues with a significant leak around his orotracheal tube. This was replaced yesterday by VAC PRESS OPERATOR without any major difficulties. This morning, he remains on a VC plus mode with a rate of 28 and a tidal volume of 450 and a nighttime of 1 second with a PEEP of 15 with an FiO2 of 50%. Blood gases from today showed a pH of 7.36 with a pCO2 of 37 and pO2 of 92. Chest x-ray showing diffuse bilateral pulmonary infiltrates. His cardiac rhythm is still in atrial fibrillation. He is on amiodarone maintenance at 0.5 mg per minute. The patient has a creatinine of 1 .5. There is still evidence of transaminitis with elevation of the AST and ALP and both are improving. LDH level is elevated at 5738. CPKs improving at 2431. C-reactive protein is elevated at 622. Note that the LDH is on the decline, CPKs on the decline on today's evaluation. LFTs are also improving. On 08/08/2019 on seeing this patient for a follow-up. The patient has been off sedation since yesterday. I am not seeing an adequate neurologic recovery in this patient. There may be a component of hepatic encephalopathy in the patient's went into shock liver. Nevertheless, his ammonia is dropping. He is on lactulose. He is producing adequate amount of bowel activity. He is undergo ing training the painful stimulation. Pupils are about 3 mm in size and there is C-reactive to light. There is a very weak cough and a gag. Absolutely no response to deep painful stimulation. No seizure activity has been noted. Neurology will be consulted on the case. EEG will be ordered. Meanwhile, the patient is clearly becoming a case of possible aspiration staphylococcal pneumonia. His blood culture came back positive for staph aureus. His sputum positive for staph. 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 For now, the cultures and the blood to be MSSA. The patient was on examination of cefepime and vancomycin. I dropped the cefepime and I utilized Zosyn to give him better anaerobic coverage as the patient clearly has a history of aspiration. Meanwhile, the Covid test came back negative. The patient remains on a mechanical ventilator. On today's chest x-ray there is worsening over the bilateral pulmonary infiltrates worse on the right. ET tube remains in a good location. The patient remains on an assist-control mode at the rate of 18 with a tidal volume of 450 and FiO2 of 50% with a PEEP of 10. Blood gas showed a pH of 7.46 with a pCO2 of 34 and pO2 of 103. CVP is ranging between 12 and 14. He remains in atrial fibrillation. He is on amiodarone drip maintenance at 0.5 mg per minute. He is also on normal saline at the rate of 75 mL an hour. His age fibrillation is under better control and he is on no pressors. He can tolerate beta blockers. He is having low-grade fever still. The white cell count is up to 22. The shock liver is improving including the AST and ALP level. The LDH level was elevated. The CPKs also improving is down to 2431. His ammonia level is down to 85. His coagulation profile is within normal limits. On 08/09/2019 the patient is being seen in follow-up in intensive care unit. Unfortunately, the patient has been off sedation for more than 24 hours and the patient is still not showing significant neurologic recovery. The patient is not following any specific commands. In fact he is not even withdrawing to deep painful stimulation. No seizure activity has been noted. EEG was done and showed diffuse slowing and it was consistent with severe encephalopathy which could be toxic metabolic encephalopathy versus hypoxic encephalopathy. The patient will be kept off sedation. Meanwhile, the ammonia level is progressively coming down and is down to 58. He continues to have a week cough and gag reflex. The patient remains in atrial fibrillation. The patient remained on assist control mode of ventilation. He is on VC plus mode at the rate of 28 with a tidal volume of 450 and FiO2 of 50% with a PEEP of 10. The blood gases from today shows a component of respiratory alkalosis with a pH of 7.5 with a pCO2 of 36 and pO2 of 71. The white cell count of 23. The patient has developed some hyperchloremic hypernatremia in the sodium level is up to 147 with a chloride of 114. Renal function is stable. The patient is receiving vital high protein at the rate of 52 mL an hour. In terms of atrial fibrillation, I had utilized back the amiodarone drip at 0.5 mg per minute and the patient is also on metoprolol 50 mg by mouth 3 times a day. Heart rate is still slightly tachycardic and will continue the same regimen for now. The patient was given a dose of Lasix yesterday. The patient Is producing better urine output for now. His weight is still up. The CPKs down to 395. The AST is down to 1000. ALT is down to 58. LDH is down to 03/10/2007. Calcium level at 7.1. No other significant issues otherwise over the past 24 hours. He remains on a combination of Zosyn and vancomycin. The blood culture and the sputum culture was positive for MSSA. The sputum culture was positive for E. coli. The chest x-ray still showing rather consolidation worse on the right compared to the left. ET tube remains in a good location. On 08/10/2019 the patient has been approximately 72 hours of sedation. Unfortunately, we do not see any significant neurologic recovery the patient's condition. He is still not responding to any verbal or deep painful stimulatio n. He remains completely unresponsive. On this morning, I have a mild assist- control mode of ventilation with a VC plus mode at a tidal volume of 450 FiO2 of 50% with a PEEP of 10 and the respiratory rate of 24. His blood gases showed a component of respiratory alkalosis. His pH is at 7.53 with a pCO2 of 39 pO2 of 63. Chest x-ray still showing bilateral pneumonia bilateral airspace disease wo rse on the right along with cardiomegaly and bilateral pleural effusions. ET tube is in a good location. The patient's white cell count is at 27. The patient is still having episodes of fever. Most recent blood culture from 2 days ago was positive for MSSA and MSSA was also cultured and his lungs and it was cultured also E. coli in his lungs. We are still thinking that this was an aspiration pneumonia. Shock liver, his LFTs are nearly normalized, severe has also dropped and ammonia level is being monitored is still elevated at 83. The lactulose was held as the patient was having liquidy stool and the patient had become also hyperchloremic and the sodium level is up to 149. He is receiving free water supplements with NG for now. He is also on vital high protein. In terms of his atrial fibrillation, rate is under better control with a combination of amiodarone maintenance of 0.5 mg per minute and Cardizem drip at 10 mg an hour. The patient is also on IV heparin. The active issue for now is his altered mentation. On 08/11/2019, I'm seeing the patient for a follow-up in intensive care unit. His been off sedation for the past 92 hours. On today's evaluation that is some slight grimacing upon very deep painful stimulation and upon pinching on his upper chest. For the most part he remains unresponsive. No seizure activity. Shock liver has recovered. Ammonia level is on the decline. I started the patient on rifixamine 550 mg by mouth twice a day yesterday and ammonia level is down to 45. I suspect a component of hypoxic encephalopathy although the possibility of metabolic encephalopathy cannot be completely ruled out. He is on a mechanical ventilator. No change in the vent setting. No changes in the x-ray findings as the patient has extensive airspace disease bilaterally more so on the right lower lobe. On the ventilator, the patient is on a VC plus mode with a tidal volume of 450 and FiO2 of 50% with a PEEP of 10 and tidal volume of 450 with a rate of 16. The patient's blood gas showed a pH of 7.52 with a pCO2 of 39 and pO2 of 67. On and off he was still having fever yesterday. Repeat blood cultures were sent. He remains on examination Zosyn and vancomycin. He is tolerating his enteral feeding for nutritional support. Is on IV heparin d rip regarding his atrial fibrillation. He remains on amiodarone drip and oral metoprolol for rate control. He is also started on Cleviprex which is running at 2 mg an hour for tighter blood pressure control. The active issue remains his altered mentation with a possibility of him having hypoxic encephalopathy with the details as mentioned above. Patient was reevaluated today on 08/12/19, remains on mechanical ventilation, his ventilator settings are assist control rate 16 volume control plus at 450 FiO2 at 50% and PEEP of 10. ABG showed a pO2 of 79 pCO2 of 39 pH of 7.52. Chest x- ray continues to show bilateral pleural effusions, and by basilar space disease, hence I recommended ultrasound to evaluate for possible thoracentesis if the effusion isn't large enough to be drained. However the ultrasound showed minimal pleural effusions bilaterally, insufficient for thoracentesis. Patient remains on Zosyn and vancomycin, and he hasn't MSSA bacteremia, sputum is positive for E. coli and staph aureus. Neurologically the patient is about the same, however the only change noted today is the fact that the patient tries to open his eyes and grimacing upon deep painful stimuli. Remains off narcotics and sedatives. WBC count is up to 25.3 today slightly improved compared to yesterday. Basic metabolic profile is basically normal and his BUN is improving down to 38 creatinine is 0.55. Liver enzymes are steadily improving. Ammonia is 60 today. It was as high as 146 about a week ago remains on rifaximin. Reevaluated today 08/13/19, patient remains in the ICU, intubated and mechanically ventilated. Yesterday the patient had significant agitation and he had to be placed back on propofol. This morning the propofol was discontinued, and the patient seems to be more responsive to stimuli/verbal stimuli patient is opening his eyes, wiggling his toes, seems to be slow but at least the best I have seen him so far. Hence I kept the propofol off, and I will give the patient a chance to go on a weaning trial if possible. He is not quite ready to start weaning but we will continue to hold propofol and address hourly today for possible placement on pressure support and CPAP. Presently the patient is on mechanical ventilation with assist control rate of 16, volume is 450 FiO2 dropped down from 60% to 50% and his PEEP was decreased to 8. His ABG this morning showed a pO2 of 124 pCO2 of 48 pH of 7.44 patient is on propofol which is presently on hold. He is on clindamycin and for his MSSA bacteremia. He is on enteral tube feeding. Chest x-ray continues to show small areas of pneumonia bilaterally, and possibly a small right sided pleural effusion not large enough to consider thoracentesis as noted on ultrasound On 08/14/2019 patient seen in follow-up, in the intensive care unit, she remains intubated, on mechanical ventilator, on assist control mode of ventilation with FiO2 of 50%. This morning blood gases showed pO2 of 112, pCO2 45, and pH of 7.48. IV 0.9 normal saline at a rate of 10 ML per hour, heparin per weight- based protocol, and Diprivan has been on hold. Patient is lethargic although she is waking up and follow commands, wiggling toes on command. Appears to be in no acute distress, today's chest x-ray has been reviewed showing diffuse ple ural parenchymal changes consistent with pulmonary edema or ARDS. Patient continues on Kefzol and Clindamycin for MSSA and E. coli pneumonia and bacteremia, follow-up blood cultures have been negative. Patient has been afebrile, hemodynamically stable, not on any vasopressors, today's labs have be en reviewed, leukocytosis is down trending, WBC is down to 18.7, hemoglobin is 9.7, sodium is 142, potassium is 3.3, chloride is 108, CO2 32, BUN is 37 and creatinine 0.53. Patient in sinus rhythm, he remains on oral amiodarone, and heparin infusion for anticoagulation. Diuretics with Lasix 40 mg every 12 hours Patient was evaluated today on 08/15/19, remains intubated and mechanically ventilated. Patient tolerated basically 24 hours of pressure support of 10, IMV of 6 and FiO2 at 50%. However when the patient was switched to pressure support of 10 and CPAP, he was noted to have shallow breathing, his tidal volume was noted to be low, and the patient was building up with secretions into the endotracheal tube. He was suctioned but he was noted to be in a bit of distress, hence I recommended placing the patient back on assist control mode of mechanical ventilation, and obviously is not quite ready to be weaned and extubated. His ventilator settings are basically the same, unchanged from yesterday. He was on to this morning on IMV of 6 and pressure support of 10 with FiO2 at 50%. Hence I recommended not to wean and extubate today. Patient is not quite ready because he didn't tolerate the pressure support with CPAP trial. I did increase his Lasix since his chest x-ray is showing a bit of worsening of his bilateral pulmonary edema/infiltrates, Lasix was increased to 40 mg IV push every 8 hours on a trial basis. Patient remains awake, he seems to be generally weak, he follows simple instructions, but he is so weak and I'm suspecting that the patient has critical illness polyneuropathy. Reevaluated today on 08/16/19, patient remains intubated, and mechanically ventilated. Patient is on assist control rate of 12 FiO2 is 50% tidal volume is 450 PEEP of 5. ABG showed a pO2 of 86 pCO2 of 43 pH of 7.52. Patient is responding to diuretics, and his Lasix and is at 40 mg IV push every 8 hours, chest x-ray is worse. Bilateral airspace disease is noted, hence I recommended bronchoscopy and bronchial alveolar lavage which was done today. There was evidence of thick. Secretions and review these were sent for different cultures. Patient is arousable, follows very simple instructions, but he seems to be generally weak. Remains in sinus rhythm, hemodynamically stable, he is on tube feeds, and he is on the propofol which I will discontinue after the bronchoscopy. His fluid balance is -769. His IV fluids at KVO. Remains on heparin drip. After reviewing his ABG and his electrolytes, I cut down his Lasix to once daily, and I added Diamox 250 mg IV push every 12 hours. Reevaluated today on 08/17/19, patient remains in the ICU, however he was extubated yesterday. Hours after he underwent bronchoscopy. Patient had excellent. Parameters, he tolerated pressure support and CPAP, he was later extubated, and he seems to tolerate the extubation quite well. Presently he is on 4 L nasal cannula, O2 saturation is in the low 90s, patient seems to be comfortable. Remains on Lasix and Diamox, and his urine output is excellent about 60 mL per hour. Remains on heparin however I plan to switch him eventually to Eliquis once the patient tolerates oral feeding. And he would have some swallow evaluation and possibly sips of water would be given today and will hopefully advance his diet gradually. Chest x-ray continues to show bilateral air space disease. Suspicious for congestive heart failure, but underlying aspiration pneumonia is very likely. Objective - Vital Signs Vital signs: Vital Signs Temp 98.2 F 08/17/19 04:00 Pulse 93 08/17/19 10:00 Resp 16 08/17/19 10:00 BP 150/73 08/17/19 10:00 Pulse Ox 94 L 08/17/19 10:00 Intake & Output 08/16/19 08/17/19 08/17/19 18:59 06:59 18:59 Intake Total 896.290 521.657 152 Output Total 1415 1455 250 Balance -518.710 -933.343 -98 Weight 102.2 kg Intake: IV 356 276 152 Clindamycin 600 mg In 100 50 50 Dextrose 5% in Water 50 ml @ 50 mls/hr IVPB Q8HR [facility] Rx#:[id number] Pressure bag 36 36 12 Sodium Chloride 0.9% 1, 120 140 40 000 ml @ 10 mls/hr IV . Q24H [facility] Rx#:[id number] ceFAZolin 2 gm In Sodium 100 50 50 Chloride 0.9% 50 ml @ 100 mls/hr IVPB Q8HR [facility] Rx# :[id number] Intake, IV Titration 257.290 245.657 Amount Heparin Sod,Pork in 0.45% 250.000 245.657 NaCl 25,000 unit In 0.45 % NaCl 1 250ml.bag @ 12 UNITS/KG/HR 12.732 mls/hr IV .[id number] [facility] Rx#: [id number] Propofol 1,000 mg In 7.29 Empty Bag 1 bag @ Titrate IV .Q0M [facility] Rx#: [id number] Tube Feeding 183 Other 100 Output: Urine 1365 1455 250 Stool 50 Other: Voiding Method Indwelling Catheter Indwelling Catheter ABP, PAP, CO, CI - Last Documented Arterial Blood Pressure 151/56 - Exam Gen. appearance, revealed 64-year-old white male on 3 L nasal cannula, in no distress. O2 saturation is in the low 90s Head: Atraumatic normocephalic. EENT: PERRLA, EOMI, no icterus, no neck masses, no JVD, no stridor Lungs: Symmetrical chest expansion, diminished breath sounds at the bases, minimal crackles at the bases no rhonchi and no wheezes. Cardiac exam : Normal S1 and S2, no S3 gallop. No murmur. Abdominal exam: Soft nontender no megaly no rebound no guarding. Examination: No clubbing edema or cyanosis. Examination: No rashes Neurologically alert and oriented 3, no gross focal neurologic deficits. Psychiatric: Normal mood affect and normal mental status examination. - Labs CBC & Chem 7: 08/17/19 06:44 08/17/19 06:44 Labs: Abnormal Lab Results - Last 24 Hours (Table) 08/16/19 08/16/19 08/16/19 Range/Units 11:57 12:12 23:25 WBC (3.8-10.6) k/uL RBC (4.30-5.90) m/uL Hgb (13.0-17.5) gm/dL Hct (39.0-53.0) % MCHC (31.0-37.0) g/dL RDW (11.5-15.5) % Neutrophils # (1.3-7.7) k/uL APTT (22.0-30.0) sec ABG pH 7.47 H (7.35-7.45) ABG pCO2 49 H (35-45) mmHg ABG HCO3 36 H (21-25) mmol/L ABG Total CO2 38 H (19-24) mmol/L Chloride (98-107) mmol/L BUN (9-20) mg/dL Creatinine (0.66-1.25) mg/dL POC Glucose (mg/dL) 127 H 102 H (75-99) mg/dL Calcium (8.4-10.2) mg/dL 08/17/19 08/17/19 08/17/19 Range/Units 06:44 06:44 06:44 WBC 11.7 H (3.8-10.6) k/uL RBC 3.23 L (4.30-5.90) m/uL Hgb 8.5 L (13.0-17.5) gm/dL Hct 27.7 L (39.0-53.0) % MCHC 30.5 L (31.0-37.0) g/dL RDW 17.1 H (11.5-15.5) % Neutrophils # 9.9 H (1.3-7.7) k/uL APTT 43.8 H (22.0-30.0) sec ABG pH (7.35-7.45) ABG pCO2 (35-45) mmHg ABG HCO3 (21-25) mmol/L ABG Total CO2 (19-24) mmol/L Chloride 111 H (98-107) mmol/L BUN 21 H (9-20) mg/dL Creatinine 0.54 L (0.66-1.25) mg/dL POC Glucose (mg/dL) (75-99) mg/dL Calcium 7.9 L (8.4-10.2) mg/dL Microbiology - Last 24 Hours (Table) 08/16/19 09:27 Acid Fast Bacilli Smear - Final Bronchial Washings - Random Acid Fast Bacilli Culture - Preliminary 08/16/19 09:27 Gram Stain - Preliminary Bronchial Washings - Random Bronchial Washings Culture - Preliminary 08/16/19 09:27 Fungal Culture - Preliminary Bronchial Washings - Random 08/15/19 11:00 Gram Stain - Preliminary Sputum Sputum Culture - Preliminary 08/10/19 09:18 Blood Culture - Final Blood No Growth after 144 hours 08/10/19 09:08 Blood Culture - Final Blood No Growth after 144 hours Assessment and Plan Assessment: Impression: Acute hypoxic and hypercapnic respiratory failure. Suspect aspiration pneumonia. Possible diastolic congestive heart failure. MSSA bacteremia Acute kidney injury, improving. Secondary to acute sepsis. Acute sepsis, and acute lactic acidosis on presentation. Chronic psychiatric disorder/bipolar disorder. Dyslipidemia. Benign essential hypertension. Shock liver. Improved. Acute rhabdomyolysis, resolved Pulmonary hypertension. Staph aureus septicemia, MSSA. Hyperchloremic hypernatremia secondary to diarrhea and intravascular volume depletion. Improved with D5W. Acute hepatic/metabolic encephalopathy, resolved. Suspect critical illness polyneuropathy/myopathy. Improving. Status post bronchoscopy and BAL on 08/16/19. Cultures are pending Recommendation: Extubated yesterday, tolerated the extubation well, presently on 3 L nasal cannula. All labs since of water and advanced diet as tolerates. Consider placing the patient on Eliquis to replace IV heparin once the patient tolerates oral intake. Continue GI and DVT prophylaxis.. Continue antibiotics. Continue amiodarone. Continue metoprolol. Continue IV heparin for atrial fibrillation/chronic, consider switching to Eliquis in the next 24 hours. Incentive spirometry. Continue bronchodilators. Physical therapy. We will continue to monitor in the ICU for the next 24 hours at least. Time with Patient: Less than 30
[2019-08-17 11:54] LABS: Glucose,Whole Blood 117 mg/dL (75-99)
[2019-08-17] MEDS: SODIUM CHLORIDE 0.9% 1,000 ML IV SCH (12:30)
--- NOTE | 2019-08-17 12:55 | PN ---
PROGRESS NOTE DATE OF SERVICE: 08/17/2019 REASON FOR FOLLOWUP: Pneumonia and bacteremia. INTERVAL HISTORY: The patient is currently afebrile. The patient is breathing comfortably. Denies having any chest pain. No shortness of breath. Occasional cough. No abdominal pain or diarrhea reported by nursing staff. PHYSICAL EXAMINATION: Blood pressure 130/80 63, pulse of 80, temperature 98.4. General description is a middle-aged male lying in bed in no distress. Respiratory system: Unlabored breathing. Clear to auscultation anteriorly. Heart S1, S2. Regular rate. ABDOMEN: Soft, no tenderness. LABS: Hemoglobin 8.5, white count 11.7, BUN of 21, creatinine 0.54. Blood culture repeat has been negative. Bronch culture so far negative. DIAGNOSTIC IMPRESSION AND PLAN: Patient with acute respiratory failure with a component of aspiration pneumonia and MSSA bacteremia. Patient is covered with clindamycin, Zosyn to continue and monitor clinical course closely. Continue supportive care. MMODL / IJN: [id number] /
[2019-08-17 17:07] LABS: Glucose,Whole Blood 115 mg/dL (75-99)
[2019-08-18 00:05] LABS: Glucose,Whole Blood 96 mg/dL (75-99)
[2019-08-18] MEDS: INSULIN ASPART (NovoLOG) 100 UNIT/ML VIAL SQ SCH ×5 (00:55→23:53)
[2019-08-18] MEDS: CLINDAMYCIN 600 MG in DEXTROSE 5% IN WATER 50 ML IVPB SCH ×6 (00:55→15:57)
[2019-08-18] MEDS: HEPARIN SOD,PORK IN 0.45% NACL 25,000 UNIT in 0.45% NACL 1 250ML.BAG IV SCH (00:58)
[2019-08-18 04:35] LABS: Anisocytosis Slight; HCT 26.4 % (39.0-53.0); HGB 8.1 gm/dL (13.0-17.5); Hypochromasia Slight; MCH 26.1 pg (25.0-35.0); MCHC 30.6 g/dL (31.0-37.0); MCV 85.4 fL (80.0-100.0); Mean Platelet Volume 8.3; Platelet Count 427 k/uL (150-450); WBC 11.9 k/uL (3.8-10.6)
[2019-08-18 04:51] LABS: African American GFR (CKD) >90 (>60 ml/min/1.73 sqM); Anion Gap 6 mmol/L; Blood Urea Nitrogen 22 mg/dL (9-20); Calcium 8.1 mg/dL (8.4-10.2); Carbon Dioxide 22 mmol/L (22-30); Chloride 110 mmol/L (98-107); Glucose 101 mg/dL (74-99); Non-African American GFR(CKD) >90 (>60 ml/min/1.73 sqM); Potassium 3.6 mmol/L (3.5-5.1); Sodium 138 mmol/L (137-145)
[2019-08-18 06:09] LABS: Glucose,Whole Blood 98 mg/dL (75-99)
[2019-08-18] MEDS: IPRATROPIUM-ALBUTEROL 3 ML NEB INHALATION SCH ×4 (07:42→20:02)
--- NOTE | 2019-08-18 08:35 | XR ---
EXAMINATION TYPE: XR chest 1V portable DATE OF EXAM: 08/18/2019 HISTORY: r/o fluid overload. REFERENCE: Previous study dated 08/17/2019. FINDINGS: There is a left shoulder arthroplasty in place. The patient right internal jugular catheter is been removed. There continues to be bibasilar airspace disease. There are bilateral effusions. Heart size is obscur ed. Vascular congestion has improved. Interstitial change has improved. IMPRESSION: IMPROVING CHANGES OF PULMONARY EDEMA.
[2019-08-18] MEDS ORDERED: POTASSIUM CHLORIDE ER 20 MEQ TAB.ER PO SCH (09:00)
--- NOTE | 2019-08-18 10:25 | P.PN ---
Subjective Progress Note Date: 08/16/19 Principal diagnosis: Acute hypoxic and hypercapnic respiratory failure secondary to sepsis from a staphylococcal bacteremia possible COPD exacerbation Patient is admitted for acute hypoxic and hypercapnic respiratory failure which was believed to be secondary to Covid 19 pneumonia patient is presently on FiO2 of 60%. Patient does have related troponin by highly elevated be high d-dimer is of which patient is on anti-correlation dose of the Lovenox. Patient scored 19 is pending patient has chest x-ray findings consistent with the pulmonary edema or atypical pneumonia or Covid 19 pneumonia along with the significant transaminitis elevated highly elevated LDH highly elevated. Ferritin and significant lymphopenia ration continues to have fever. Patient also has acute renal failure secondary to possibly acute tubular necrosis patient is on sodium bicarbonate and D5 because of hyperkalemia. 08/07/2019 Patient the white blood cell count went up to 17,000. His blood cultures are positive for staph aureus we'll repeat the blood cultures tomorrow. Patient liver enzymes are elevated because of shock liver ultrasound did not show significant abnormality. Patient had an elevated ammonia yesterday which is actually better now after lactulose, patient is off pressors. Patient remains on amiodarone. Computed tomography scan of the brain did not show any signif icant abnormality patient Covid 19 is negative patient remains on cefepime and vancomycin. Primary source is probably lung. Patient has fairly good urine output at 400 mL per hour on volume control ventilation set up respiratory rate of 28 total volume of 450 PEEP of 15 episode of 50% patient's hypercapnic respiratory failure improved and hypoxic respiratory failure improved patient has pH of 7.36 pCO2 of 37 08/07/2028 patient doesn't have any significant clinical improvement remains bacteremic repeat blood cultures are being obtained for today and tomorrow as well. Patient has staph aureus in the blood patient probably will need the transesophageal echocardiogram. Patient is off sedation but is not arousable yet because of which neurology is evaluating the patient and patient is getting EEG patient remains on Vanco mycin cefepime was switched to Zosyn because of concern for aspiration patient aspirin cultures are positive for staph aureus and E. coli along with the species infectious disease is following the patient as well. 08/09/2019 She is still the remains is severely encephalopathic and it and the just withdrawing from painful stimuli off sedation for about 2 days. Patient has severe toxic and metabolic encephalopathy patient is mildly alkalotic patient's present tidal volume is 450 and set up respiratory rate was Down now and patient is breathing over the ventilator and is breathing at around 24/m on an average. FiO2 of 50% PEEP of 10. Patient liver enzymes are bit better patient remains on Zosyn and vancomycin probably vancomycin can be discontinued as patient has MSSA in the blood cultures. Infectious disease is following the patient. Patient white blood cell count remains high patient eventually will need a BRENDA to rule out endocarditis, will plan on this if he has some response on the antibiotics and less encephalopathic and if there is any improvement 08/10/2019 No significant change in his clinical condition including his mental status which it has not improved at patient is hyponatremic because of IV fluids patient is on D5 water now because of hypernatremia and hyperchloremia. Patient remains in the same vent settings as as today remains bacteremic prognosis is extremely poor. Tomorrow we'll discuss with the family regarding overall goals of care. Patient is presently not on pressor support serum creatinine remains stable patient is on amiodarone for atrial fibrillation patient will need repeat blood cultures again tomorrow patient is having thick secretions from the endotracheal to. Patient is presently on Zosyn and vancomycin, rifampin was added patient was started on daily. 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 There is no chance of reasonable neurological recovery she wants to make him comfort care at that time. Patient remains on clevidipine. Patient last 2 blood cultures are negative. 08/11/2022 Patient is still on ventilator support patient the blood cultures are negative so far his bacteremia secondary to pneumonia. Patient is bit more responsive and response to 2 painful stimuli. White blood cell count started improving patient overall has some improvement has good urine output. 08/13/2019 Patient has significant improvement competitors. Patient is much more awake will undergo repeat cultures tomorrow 08/14/2019 Patient is bit more awake appears to have been improving patient will undergo weaning trial later today 08/15/2019 Patient is bit alkalotic today patient failed a weaning trial patient remains on ceftezole and then clindamycin. Patient is still having quite a few secretions now patient is on Alesse sedation patient respiratory than went has come down to 12 because of his respiratory alkalosis. 08/16/2019 patient is currently on mechanical ventilator.she underwent bronchoscopy and bronchoalveolar lavage today. Follow-up culture reports. Patient is arousable andfollow simple commands. Plan for weaning from ventilator today. Patient remains afebrile. Currently on heparin drip due to history of atrial fibrillation. currently on antibiotics the form of cefazolin and clindamycin. Laboratory data reviewed. Pulmonary is on board. Review Of systems: Unable to obtain due to his clinical condition. All inpatient medications were reviewed and appropriate changes in these medications as dictated in the interval history and assessment and plan. Objective - Vital Signs Vital signs: Vital Signs Temp 98.8 F 08/16/19 20:00 Pulse 85 08/16/19 23:00 Resp 16 08/16/19 23:00 BP 145/68 08/16/19 23:00 Pulse Ox 94 L 08/16/19 23:00 Intake & Output 08/16/19 08/16/19 08/17/19 06:59 18:59 06:59 Intake Total 1589.929 896.290 39 Output Total 1870 1415 600 Balance -280.071 -518.710 -561 Weight 105 kg Intake: IV 321 356 39 Clindamycin 600 mg In 50 100 Dextrose 5% in Water 50 ml @ 50 mls/hr IVPB Q8HR [facility] Rx#:[id number] Pressure bag 51 36 9 Sodium Chloride 0.9% 1, 170 120 30 000 ml @ 10 mls/hr IV . Q24H [facility] Rx#:[id number] ceFAZolin 2 gm In Sodium 50 100 Chloride 0.9% 50 ml @ 100 mls/hr IVPB Q8HR [facility] Rx# :[id number] Intake, IV Titration 237.929 257.290 Amount Heparin Sod,Pork in 0.45% 237.929 250.000 NaCl 25,000 unit In 0.45 % NaCl 1 250ml.bag @ 12 UNITS/KG/HR 12.732 mls/hr IV .[id number] [facility] Rx#: [id number] Propofol 1,000 mg In 7.29 Empty Bag 1 bag @ Titrate IV .Q0M [facility] Rx#: [id number] Tube Feeding 731 183 Other 300 100 Output: Urine 1870 1365 600 Stool 50 Other: Voiding Method Indwelling Catheter Indwelling Catheter ABP, PAP, CO, CI - Last Documented Arterial Blood Pressure 151/56 - Exam PHYSICAL EXAMINATION: GENERAL: Patient is intubated sedated and vented to settings as mentioned above patient is a FiO2 of 50% PEEP of 15 pedal volume of 450 set up respiratory rate of 28 assist-control ventilation. A HEENT: Pupils are round and equally reacting to light. EOMI. No scleral icterus. No conjunctival pallor. Normocephalic, atraumatic. No pharyngeal erythema. No thyromegaly. CARDIOVASCULAR: S1 and S2 present. No murmurs, rubs, or gallops. PULMONARY: Chest is clear to auscultation, no wheezing or crackles. ABDOMEN: Soft, nontender, nondistended, normoactive bowel sounds. No palpable organomegaly. MUSCULOSKELETAL: No joint swelling or deformity. EXTREMITIES: No cyanosis, clubbing, or pedal edema. NEUROLOGICAL: Gross neurological examination did not reveal any focal deficits. SKIN: No rashes. - Labs CBC & Chem 7: 08/18/19 04:04 08/18/19 04:01 Labs: Abnormal Lab Results - Last 24 Hours (Table) 08/16/19 08/16/19 08/16/19 Range/Units 00:28 05:30 05:30 WBC 15.0 H (3.8-10.6) k/uL RBC 3.30 L (4.30-5.90) m/uL Hgb 8.9 L (13.0-17.5) gm/dL Hct 27.9 L (39.0-53.0) % RDW 16.8 H (11.5-15.5) % Neutrophils # 12.9 H (1.3-7.7) k/uL APTT (22.0-30.0) sec ABG pH (7.35-7.45) ABG pCO2 (35-45) mmHg ABG HCO3 (21-25) mmol/L ABG Total CO2 (19-24) mmol/L Potassium 3.4 L (3.5-5.1) mmol/L Carbon Dioxide 35 H (22-30) mmol/L BUN 29 H (9-20) mg/dL Creatinine 0.51 L (0.66-1.25) mg/dL Glucose 141 H (74-99) mg/dL POC Glucose (mg/dL) 113 H (75-99) mg/dL Calcium 8.0 L (8.4-10.2) mg/dL 08/16/19 08/16/19 08/16/19 Range/Units 05:30 06:05 06:08 WBC (3.8-10.6) k/uL RBC (4.30-5.90) m/uL Hgb (13.0-17.5) gm/dL Hct (39.0-53.0) % RDW (11.5-15.5) % Neutrophils # (1.3-7.7) k/uL APTT 46.5 H (22.0-30.0) sec ABG pH (7.35-7.45) ABG pCO2 (35-45) mmHg ABG HCO3 (21-25) mmol/L ABG Total CO2 (19-24) mmol/L Potassium (3.5-5.1) mmol/L Carbon Dioxide (22-30) mmol/L BUN (9-20) mg/dL Creatinine (0.66-1.25) mg/dL Glucose (74-99) mg/dL POC Glucose (mg/dL) 125 H 146 H (75-99) mg/dL Calcium (8.4-10.2) mg/dL 08/16/19 08/16/19 08/16/19 Range/Units 07:32 11:57 12:12 WBC (3.8-10.6) k/uL RBC (4.30-5.90) m/uL Hgb (13.0-17.5) gm/dL Hct (39.0-53.0) % RDW (11.5-15.5) % Neutrophils # (1.3-7.7) k/uL APTT (22.0-30.0) sec ABG pH 7.52 H 7.47 H (7.35-7.45) ABG pCO2 49 H (35-45) mmHg ABG HCO3 34 H 36 H (21-25) mmol/L ABG Total CO2 36 H 38 H (19-24) mmol/L Potassium (3.5-5.1) mmol/L Carbon Dioxide (22-30) mmol/L BUN (9-20) mg/dL Creatinine (0.66-1.25) mg/dL Glucose (74-99) mg/dL POC Glucose (mg/dL) 127 H (75-99) mg/dL Calcium (8.4-10.2) mg/dL 08/16/19 Range/Units 23:25 WBC (3.8-10.6) k/uL RBC (4.30-5.90) m/uL Hgb (13.0-17.5) gm/dL Hct (39.0-53.0) % RDW (11.5-15.5) % Neutrophils # (1.3-7.7) k/uL APTT (22.0-30.0) sec ABG pH (7.35-7.45) ABG pCO2 (35-45) mmHg ABG HCO3 (21-25) mmol/L ABG Total CO2 (19-24) mmol/L Potassium (3.5-5.1) mmol/L Carbon Dioxide (22-30) mmol/L BUN (9-20) mg/dL Creatinine (0.66-1.25) mg/dL Glucose (74-99) mg/dL POC Glucose (mg/dL) 102 H (75-99) mg/dL Calcium (8.4-10.2) mg/dL Microbiology - Last 24 Hours (Table) 08/16/19 09:27 Bronchial Washings Culture - Preliminary Bronchial Washings - Random 08/16/19 09:27 Fungal Culture - Preliminary Bronchial Washings - Random 08/16/19 09:27 Acid Fast Bacilli Culture - Preliminary Bronchial Washings - Random 08/15/19 11:00 Gram Stain - Preliminary Sputum Sputum Culture - Preliminary 08/10/19 09:18 Blood Culture - Final Blood No Growth after 144 hours 08/10/19 09:08 Blood Culture - Final Blood No Growth after 144 hours Assessment and Plan Assessment: Acute hypoxic and hypercapnic respiratory failure secondary to sepsis from a staphylococcal bacteremia possible COPD exacerbation. Continue ventilator s upport with the above-mentioned vent settings continue with inhalational treatments His blood cultures remained positive persistent bacteremia with MSSA. Patient patient will be switched to cefazolin and clindamycin, which provides double coverage for MSSA and also covers aspiration pneumonia if any. -Sepsis shock shock resolved y secondary to staphylococcal pneumonia, patient has persistent bacteremia -Severe toxic encephalopathy from sepsis and septic shock -Acute renal failure possibly acute tubular necrosis patient creatinine improved with IV fluids -Lactic acidosis secondary to sepsis Hypernatremia and hyperchloremia secondary to normal saline which was discontinued and patient received Lasix yesterday. -Hypertension -Hyperlipidemia next and heparin hypertension -Elevated liver enzymes probably secondary to shock liver. -Hepatic encephalopathy: Ammonia level is bit better now. -Troponin leak secondary to myocardial injury from sepsis. -Severe pulmonary hypertension Time with Patient: Greater than 30
--- NOTE | 2019-08-18 10:30 | P.PN ---
Subjective Progress Note Date: 08/17/19 Principal diagnosis: Acute hypoxic and hypercapnic respiratory failure secondary to sepsis from a staphylococcal bacteremia possible COPD exacerbation Patient is admitted for acute hypoxic and hypercapnic respiratory failure which was believed to be secondary to Covid 19 pneumonia patient is presently on FiO2 of 60%. Patient does have related troponin by highly elevated be high d-dimer is of which patient is on anti-correlation dose of the Lovenox. Patient scored 19 is pending patient has chest x-ray findings consistent with the pulmonary edema or atypical pneumonia or Covid 19 pneumonia along with the significant transaminitis elevated highly elevated LDH highly elevated. Ferritin and significant lymphopenia ration continues to have fever. Patient also has acute renal failure secondary to possibly acute tubular necrosis patient is on sodium bicarbonate and D5 because of hyperkalemia. 08/07/2019 Patient the white blood cell count went up to 17,000. His blood cultures are positive for staph aureus we'll repeat the blood cultures tomorrow. Patient liver enzymes are elevated because of shock liver ultrasound did not show significant abnormality. Patient had an elevated ammonia yesterday which is actually better now after lactulose, patient is off pressors. Patient remains on amiodarone. Computed tomography scan of the brain did not show any signif icant abnormality patient Covid 19 is negative patient remains on cefepime and vancomycin. Primary source is probably lung. Patient has fairly good urine output at 400 mL per hour on volume control ventilation set up respiratory rate of 28 total volume of 450 PEEP of 15 episode of 50% patient's hypercapnic respiratory failure improved and hypoxic respiratory failure improved patient has pH of 7.36 pCO2 of 37 08/07/2028 patient doesn't have any significant clinical improvement remains bacteremic repeat blood cultures are being obtained for today and tomorrow as well. Patient has staph aureus in the blood patient probably will need the transesophageal echocardiogram. Patient is off sedation but is not arousable yet because of which neurology is evaluating the patient and patient is getting EEG patient remains on Vanco mycin cefepime was switched to Zosyn because of concern for aspiration patient aspirin cultures are positive for staph aureus and E. coli along with the species infectious disease is following the patient as well. 08/09/2019 She is still the remains is severely encephalopathic and it and the just withdrawing from painful stimuli off sedation for about 2 days. Patient has severe toxic and metabolic encephalopathy patient is mildly alkalotic patient's present tidal volume is 450 and set up respiratory rate was Down now and patient is breathing over the ventilator and is breathing at around 24/m on an average. FiO2 of 50% PEEP of 10. Patient liver enzymes are bit better patient remains on Zosyn and vancomycin probably vancomycin can be discontinued as patient has MSSA in the blood cultures. Infectious disease is following the patient. Patient white blood cell count remains high patient eventually will need a BRENDA to rule out endocarditis, will plan on this if he has some response on the antibiotics and less encephalopathic and if there is any improvement 08/10/2019 No significant change in his clinical condition including his mental status which it has not improved at patient is hyponatremic because of IV fluids patient is on D5 water now because of hypernatremia and hyperchloremia. Patient remains in the same vent settings as as today remains bacteremic prognosis is extremely poor. Tomorrow we'll discuss with the family regarding overall goals of care. Patient is presently not on pressor support serum creatinine remains stable patient is on amiodarone for atrial fibrillation patient will need repeat blood cultures again tomorrow patient is having thick secretions from the endotracheal to. Patient is presently on Zosyn and vancomycin, rifampin was added patient was started on daily. 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 There is no chance of reasonable neurological recovery she wants to make him comfort care at that time. Patient remains on clevidipine. Patient last 2 blood cultures are negative. 08/11/2022 Patient is still on ventilator support patient the blood cultures are negative so far his bacteremia secondary to pneumonia. Patient is bit more responsive and response to 2 painful stimuli. White blood cell count started improving patient overall has some improvement has good urine output. 08/13/2019 Patient has significant improvement competitors. Patient is much more awake will undergo repeat cultures tomorrow 08/14/2019 Patient is bit more awake appears to have been improving patient will undergo weaning trial later today 08/15/2019 Patient is bit alkalotic today patient failed a weaning trial patient remains on ceftezole and then clindamycin. Patient is still having quite a few secretions now patient is on Alesse sedation patient respiratory than went has come down to 12 because of his respiratory alkalosis. 08/16/2019 patient is currently on mechanical ventilator.she underwent bronchoscopy and bronchoalveolar lavage today. Follow-up culture reports. Patient is arousable andfollow simple commands. Plan for weaning from ventilator today. Patient remains afebrile. Currently on heparin drip due to history of atrial fibrillation. currently on antibiotics the form of cefazolin and clindamycin. Laboratory data reviewed. Pulmonary is on board. 08/17/2019 Patient was successfully extubated yesterday. Currently on oxygen at 4 L via nasal cannula. Patient still drowsy but able to follow simple commands and open his eyes. Currently on Lasix and Diamox. Patient will be started on oral diet after bedside swallow evaluation. Patient is afebrile. Continued on antibiotics the form of cefazolin and clindamycinfor staph aureus bacteremia. Blood cultures have been negative so far. chest x-ray showed continued changes ofCHF. Review Of systems: Unable to obtain due to his clinical condition. All inpatient medications were reviewed and appropriate changes in these medications as dictated in the interval history and assessment and plan. Objective - Vital Signs Vital signs: Vital Signs Temp 98.6 F 08/17/19 21:00 Pulse 78 08/17/19 22:00 Resp 21 08/17/19 22:00 BP 125/62 08/17/19 22:00 Pulse Ox 90 L 08/17/19 22:00 Intake & Output 08/17/19 08/17/19 08/18/19 06:59 18:59 06:59 Intake Total 521.657 682 110 Output Total 1455 1720 300 Balance -933.343 -1038 -190 Weight 102.2 kg Intake: IV 276 432 60 Clindamycin 600 mg In 50 150 Dextrose 5% in Water 50 ml @ 50 mls/hr IVPB Q8HR [facility] Rx#:[id number] Pressure bag 36 12 Sodium Chloride 0.9% 1, 140 120 60 000 ml @ 10 mls/hr IV . Q24H [facility] Rx#:[id number] ceFAZolin 2 gm In Sodium 50 150 Chloride 0.9% 50 ml @ 100 mls/hr IVPB Q8HR [facility] Rx# :[id number] Intake, IV Titration 245.657 250 Amount Heparin Sod,Pork in 0.45% 245.657 250 NaCl 25,000 unit In 0.45 % NaCl 1 250ml.bag @ 12 UNITS/KG/HR 12.732 mls/hr IV .[id number] [facility] Rx#: [id number] Oral 50 Output: Urine 1455 1720 300 Other: Voiding Method Indwelling Catheter Indwelling Catheter Indwelling Catheter ABP, PAP, CO, CI - Last Documented Arterial Blood Pressure 151/56 - Exam PHYSICAL EXAMINATION: GENERAL: Patient is intubated sedated and vented to settings as mentioned above patient is a FiO2 of 50% PEEP of 15 pedal volume of 450 set up respiratory rate of 28 assist-control ventilation. A HEENT: Pupils are round and equally reacting to light. EOMI. No scleral icterus. No conjunctival pallor. Normocephalic, atraumatic. No pharyngeal erythema. No thyromegaly. CARDIOVASCULAR: S1 and S2 present. No murmurs, rubs, or gallops. PULMONARY: Chest is clear to auscultation, no wheezing or crackles. ABDOMEN: Soft, nontender, nondistended, normoactive bowel sounds. No palpable organomegaly. MUSCULOSKELETAL: No joint swelling or deformity. EXTREMITIES: No cyanosis, clubbing, or pedal edema. NEUROLOGICAL: Gross neurological examination did not reveal any focal deficits. SKIN: No rashes. - Labs CBC & Chem 7: 08/18/19 04:04 08/18/19 04:01 Labs: Abnormal Lab Results - Last 24 Hours (Table) 08/16/19 08/17/19 08/17/19 Range/Units 23:25 06:44 06:44 WBC 11.7 H (3.8-10.6) k/uL RBC 3.23 L (4.30-5.90) m/uL Hgb 8.5 L (13.0-17.5) gm/dL Hct 27.7 L (39.0-53.0) % MCHC 30.5 L (31.0-37.0) g/dL RDW 17.1 H (11.5-15.5) % Neutrophils # 9.9 H (1.3-7.7) k/uL APTT (22.0-30.0) sec Chloride 111 H (98-107) mmol/L BUN 21 H (9-20) mg/dL Creatinine 0.54 L (0.66-1.25) mg/dL POC Glucose (mg/dL) 102 H (75-99) mg/dL Calcium 7.9 L (8.4-10.2) mg/dL 08/17/19 08/17/19 08/17/19 Range/Units 06:44 11:51 17:05 WBC (3.8-10.6) k/uL RBC (4.30-5.90) m/uL Hgb (13.0-17.5) gm/dL Hct (39.0-53.0) % MCHC (31.0-37.0) g/dL RDW (11.5-15.5) % Neutrophils # (1.3-7.7) k/uL APTT 43.8 H (22.0-30.0) sec Chloride (98-107) mmol/L BUN (9-20) mg/dL Creatinine (0.66-1.25) mg/dL POC Glucose (mg/dL) 117 H 115 H (75-99) mg/dL Calcium (8.4-10.2) mg/dL Microbiology - Last 24 Hours (Table) 08/16/19 09:27 Gram Stain - Preliminary Bronchial Washings - Random Bronchial Washings Culture - Preliminary 08/16/19 09:27 Acid Fast Bacilli Smear - Final Bronchial Washings - Random Acid Fast Bacilli Culture - Preliminary Assessment and Plan Assessment: Acute hypoxic and hypercapnic respiratory failure secondary to sepsis from a staphylococcal bacteremia possible COPD exacerbation. patient is currently extubated. -persistent bacteremia with MSSA. Patient patient was switched to cefazolin and clindamycin, which provides double coverage for MSSA and also covers aspiration pneumonia if any.repeat cultures have been negative. -Sepsis shock shock resolved . secondary to staphylococcal pneumonia, patient has persistent bacteremia. suspected aspiration pneumonia. - possible acute CHF with diastolic dysfunction -Severe toxic encephalopathy from sepsis and septic shock -Acute renal failure possibly acute tubular necrosis patient creatinine improved with IV fluids -Lactic acidosis secondary to sepsis Hypernatremia and hyperchloremia secondary to normal saline which was discontinu ed and patient received Lasix yesterday. -Hypertension -Hyperlipidemia next and heparin hypertension -Elevated liver enzymes probably secondary to shock liver. -Hepatic encephalopathy: Ammonia level is bit better now. -Troponin leak secondary to myocardial injury from sepsis. -Severe pulmonary hypertension . Time with Patient: Greater than 30
[2019-08-18] MEDS: acetaZOLAMIDE 250 MG TAB PO SCH ×2 (11:00→21:26)
[2019-08-18] MEDS: APIXABAN 5 MG TAB PO SCH ×2 (11:02→21:25)
[2019-08-18] MEDS: AMIODARONE 200 MG TAB PO SCH ×2 (11:02→21:25)
[2019-08-18] MEDS: ASPIRIN 81 MG PO SCH (11:02)
[2019-08-18] MEDS: METOPROLOL TARTRATE 50 MG TAB PO SCH ×3 (11:03→21:25)
[2019-08-18] MEDS: FUROSEMIDE 40 MG TAB PO SCH (11:03)
[2019-08-18] MEDS: PANTOPRAZOLE 40 MG TABLET PO SCH (11:06)
[2019-08-18 11:46] LABS: Glucose,Whole Blood 124 mg/dL (75-99)
--- NOTE | 2019-08-18 12:17 | P.PN ---
Subjective Progress Note Date: 08/18/19 Principal diagnosis: Acute hypoxic and hypercapnic respiratory failure, secondary to aspiration pneumonia. 62-year-old male patient who was brought into the emergency department today unresponsive and profoundly hypoxic. The patient was in acute hypoxic respiratory failure. Initial pulse ox was in the mid 30s. Apparently he was not also communicating or responding. He was apparently awake and alert on the morning prior to him coming to the hospital according to the landlord. The landlord noted that the patient was appearing ill and called EMS. Upon EMS arrival, the patient was found to be obtunded. He had a fever of 10 1F. He was found to be hypoxic, brought into the emergency room he was found to be tachycardic and hypoxic with was placed on supplemental oxygen without any benefit and ultimately the patient was intubated and placed on a mechanical ventilator. COVID 19 is suspected. The patient was placed on the opposite isolation. The patient had the appropriate nasal swabs. Chest x-ray showed bilateral airspace disease consistent with pneumonia in addition to interstitial pneumonitis. ET tube was around 3.7 cm above the mario. NG tube was extending into the left abdomen. There was a right upper lobe consolidation noted and a tiny right-sided pleural effusion. No evidence of any pneumothorax. There was bilateral infiltrates and coarse interstitium and a prosthetic left shoulder. The patient has a white cell count of 4.9. He had some lymphopenia. His platelet counts is no within normal limits. The blood gases was done on 100% nonrebreather showed a pH of 7.17 with a pCO2 of 66 and pO2 of 45. The patient also had an acute kidney injury with a creatinine of 1.65. Epigastric level was at 3.1. The ALT is at 1106 with an ammonia level of 146 and a bilirubin of 0.5 and an albumin of 4.1. The serum alcohol was negative and the patient has negative salicylates and acetaminophen. Influenza screen has been negative. Covid 19 analysis still pending for now. This patient lives with a sister in a house and he collects Social Security disability. He has had issues with mental health and the patient has been dealing with bipolar disorder and chronic insomnia of many years duration. He has also chronic anxiety disorder. No history of any previous suicidal ideation or intent. No delusions or hallucinations based on recent psychiatric evaluation that was in the hospital. On today's evaluation of 62,020 the patient is being seen in follow-up in the intensive care unit. Noted the patient is intubated on a mechanical ventilator and is suspected to have Covid 19. He is afebrile on today's evaluation. He remains on a mechanical ventilator. He is sedated with propofol running at 20 mg per KG per minute. He was given a total of 5 L of IV fluid as the patient was hypotensive and currently the fluid is running at 75 mL an hour of normal saline. He remains on norepinephrine infusion at 0.08 mg per KG per minute. He remains on a mechanical ventilator. His assist-control mode at the rate of 28 with a tidal volume of 450 and FiO2 of 60% with a PEEP of 15. His blood gases showed a pH of 7.12 with a pCO2 of 58 and pO2 of 187. This was done and FiO2 of 100%. Otherwise, the patient has blood abnormalities it is consistent with Covid 19 infection. He has a rhabdomyolysis with a CPK level of 6114. He has also transaminitis with a AST of 3354, ALT of 1962, and his LDH level is at 8367. His creatinine is at 1.2, which is up from a baseline of 1.65 with fluid resuscitation. His current minute ventilation is 13 L. I made recommendations to keep the same vent setting. Based on the blood on of some non-anion gap metabolic acidosis, and with recommendations to start the patient on bicarb infusion and addition to 2 A of IV bicarb pushes. He was having temperatures throughout the night with temperature maximum 100.8. Current temperature is 99.6. He'll be started on enteral feeding for nutritional support. Covid 19 evaluation is still pending for now. On today's evaluation of 08/07/2019 and seeing this patient for a follow-up. The patient has sedated with propofol. He was given a sedation holiday yesterday and his neurologic exam was suboptimal as the patient did not show adequate neurologic recovery. Based on that, a CAT scan of the brain was done and the CAT scan of the brain was negative for any acute abnormalities. Noted the patient was profoundly hypoxic and at time of admission to the hospital and there is a suspicion for hypoxic encephalopathy. Contrary to my expectations, the patient checked negative for Covid 19 infection. The blood culture came back positive for staph aureus. Currently is on a combination of cefepime and vancomycin. The patient was resuscitated with more than 5 L of normal saline and the patient is also requiring some pressors for hemodynamic support and levo fed was started and 8 on was placed on hold as of 5:00 this morning. Urine output in the order of 40 mL an hour. In terms of sedation, the patient is on propofol at 20 g per KG per minute. Note that the patient had issues with a significant leak around his orotracheal tube. This was replaced yesterday by [employer] without any major difficulties. This morning, he remains on a VC plus mode with a rate of 28 and a tidal volume of 450 and a nighttime of 1 second with a PEEP of 15 with an FiO2 of 50%. Blood gases from today showed a pH of 7.36 with a pCO2 of 37 and pO2 of 92. Chest x-ray showing diffuse bilateral pulmonary infiltrates. His cardiac rhythm is still in atrial fibrillation. He is on amiodarone maintenance at 0.5 mg per minute. The patient has a creatinine of 1 .5. There is still evidence of transaminitis with elevation of the AST and ALP and both are improving. LDH level is elevated at 5738. CPKs improving at 2431. C-reactive protein is elevated at 622. Note that the LDH is on the decline, CPKs on the decline on today's evaluation. LFTs are also improving. On 08/08/2019 on seeing this patient for a follow-up. The patient has been off sedation since yesterday. I am not seeing an adequate neurologic recovery in this patient. There may be a component of hepatic encephalopathy in the patient's went into shock liver. Nevertheless, his ammonia is dropping. He is on lactulose. He is producing adequate amount of bowel activity. He is undergo ing training the painful stimulation. Pupils are about 3 mm in size and there is C-reactive to light. There is a very weak cough and a gag. Absolutely no response to deep painful stimulation. No seizure activity has been noted. Neurology will be consulted on the case. EEG will be ordered. Meanwhile, the patient is clearly becoming a case of possible aspiration staphylococcal pneumonia. His blood culture came back positive for staph aureus. His sputum positive for staph. He also has gram-negative bacillus in his sputum which cut out marker to be E. coli. For now, the cultures and the blood to be MSSA. The patient was on examination of cefepime and vancomycin. I dropped the cefepime and I utilized Zosyn to give him better anaerobic coverage as the patient clearly has a history of aspiration. Meanwhile, the Covid test came back negative. The patient remains on a mechanical ventilator. On today's chest x-ray there is worsening over the bilateral pulmonary infiltrates worse on the right. ET tube remains in a good location. The patient remains on an assist-control mode at the rate of 18 with a tidal volume of 450 and FiO2 of 50% with a PEEP of 10. Blood gas showed a pH of 7.46 with a pCO2 of 34 and pO2 of 103. CVP is ranging between 12 and 14. He remains in atrial fibrillation. He is on amiodarone drip maintenance at 0.5 mg per minute. He is also on normal saline at the rate of 75 mL an hour. His age fibrillation is under better control and he is on no pressors. He can tolerate beta blockers. He is having low-grade fever still. The white cell count is up to 22. The shock liver is improving including the AST and ALP level. The LDH level was elevated. The CPKs also improving is down to 2431. His ammonia level is down to 85. His coagulation profile is within normal limits. On 08/09/2019 the patient is being seen in follow-up in intensive care unit. Unfortunately, the patient has been off sedation for more than 24 hours and the patient is still not showing significant neurologic recovery. The patient is not following any specific commands. In fact he is not even withdrawing to deep painful stimulation. No seizure activity has been noted. EEG was done and showed diffuse slowing and it was consistent with severe encephalopathy which could be toxic metabolic encephalopathy versus hypoxic encephalopathy. The patient will be kept off sedation. Meanwhile, the ammonia level is progressively coming down and is down to 58. He continues to have a week cough and gag reflex. The patient remains in atrial fibrillation. The patient remained on assist control mode of ventilation. He is on VC plus mode at the rate of 28 with a tidal volume of 450 and FiO2 of 50% with a PEEP of 10. The blood gases from today shows a component of respiratory alkalosis with a pH of 7.5 with a pCO2 of 36 and pO2 of 71. The white cell count of 23. The patient has developed some hyperchloremic hypernatremia in the sodium level is up to 147 with a chloride of 114. Renal function is stable. The patient is receiving vital high protein at the rate of 52 mL an hour. In terms of atrial fibrillation, I had utilized back the amiodarone drip at 0.5 mg per minute and the patient is also on metoprolol 50 mg by mouth 3 times a day. Heart rate is still slightly tachycardic and will continue the same regimen for now. The patient was given a dose of Lasix yesterday. The patient Is producing better urine output for now. His weight is still up. The CPKs down to 395. The AST is down to 1000. ALT is down to 58. LDH is down to 03/10/2007. Calcium level at 7.1. No other significant issues otherwise over the past 24 hours. He remains on a combination of Zosyn and vancomycin. The blood culture and the sputum culture was positive for MSSA. The sputum culture was positive for E. coli. The chest x-ray still showing rather consolidation worse on the right compared to the left. ET tube remains in a good location. On 08/10/2019 the patient has been approximately 72 hours of sedation. Unfortunately, we do not see any significant neurologic recovery the patient's condition. He is still not responding to any verbal or deep painful stimulatio n. He remains completely unresponsive. On this morning, I have a mild assist- control mode of ventilation with a VC plus mode at a tidal volume of 450 FiO2 of 50% with a PEEP of 10 and the respiratory rate of 24. His blood gases showed a component of respiratory alkalosis. His pH is at 7.53 with a pCO2 of 39 pO2 of 63. Chest x-ray still showing bilateral pneumonia bilateral airspace disease wo rse on the right along with cardiomegaly and bilateral pleural effusions. ET tube is in a good location. The patient's white cell count is at 27. The patient is still having episodes of fever. Most recent blood culture from 2 days ago was positive for MSSA and MSSA was also cultured and his lungs and it was cultured also E. coli in his lungs. We are still thinking that this was an aspiration pneumonia. Shock liver, his LFTs are nearly normalized, severe has also dropped and ammonia level is being monitored is still elevated at 83. The lactulose was held as the patient was having liquidy stool and the patient had become also hyperchloremic and the sodium level is up to 149. He is receiving free water supplements with NG for now. He is also on vital high protein. In terms of his atrial fibrillation, rate is under better control with a combination of amiodarone maintenance of 0.5 mg per minute and Cardizem drip at 10 mg an hour. The patient is also on IV heparin. The active issue for now is his altered mentation. On 08/11/2019, I'm seeing the patient for a follow-up in intensive care unit. His been off sedation for the past 92 hours. On today's evaluation that is some slight grimacing upon very deep painful stimulation and upon pinching on his upper chest. For the most part he remains unresponsive. No seizure activity. Shock liver has recovered. Ammonia level is on the decline. I started the patient on rifixamine 550 mg by mouth twice a day yesterday and ammonia level is down to 45. I suspect a component of hypoxic encephalopathy although the possibility of metabolic encephalopathy cannot be completely ruled out. He is on a mechanical ventilator. No change in the vent setting. No changes in the x-ray findings as the patient has extensive airspace disease bilaterally more so on the right lower lobe. On the ventilator, the patient is on a VC plus mode with a tidal volume of 450 and FiO2 of 50% with a PEEP of 10 and tidal volume of 450 with a rate of 16. The patient's blood gas showed a pH of 7.52 with a pCO2 of 39 and pO2 of 67. On and off he was still having fever yesterday. Repeat blood cultures were sent. He remains on examination Zosyn and vancomycin. He is tolerating his enteral feeding for nutritional support. Is on IV heparin d rip regarding his atrial fibrillation. He remains on amiodarone drip and oral metoprolol for rate control. He is also started on Cleviprex which is running at 2 mg an hour for tighter blood pressure control. The active issue remains his altered mentation with a possibility of him having hypoxic encephalopathy with the details as mentioned above. Patient was reevaluated today on 08/12/19, remains on mechanical ventilation, his ventilator settings are assist control rate 16 volume control plus at 450 FiO2 at 50% and PEEP of 10. ABG showed a pO2 of 79 pCO2 of 39 pH of 7.52. Chest x- ray continues to show bilateral pleural effusions, and by basilar space disease, hence I recommended ultrasound to evaluate for possible thoracentesis if the effusion isn't large enough to be drained. However the ultrasound showed minimal pleural effusions bilaterally, insufficient for thoracentesis. Patient remains on Zosyn and vancomycin, and he hasn't MSSA bacteremia, sputum is positive for E. coli and staph aureus. Neurologically the patient is about the same, however the only change noted today is the fact that the patient tries to open his eyes and grimacing upon deep painful stimuli. Remains off narcotics and sedatives. WBC count is up to 25.3 today slightly improved compared to yesterday. Basic metabolic profile is basically normal and his BUN is improving down to 38 creatinine is 0.55. Liver enzymes are steadily improving. Ammonia is 60 today. It was as high as 146 about a week ago remains on rifaximin. Reevaluated today 08/13/19, patient remains in the ICU, intubated and mechanically ventilated. Yesterday the patient had significant agitation and he had to be placed back on propofol. This morning the propofol was discontinued, and the patient seems to be more responsive to stimuli/verbal stimuli patient is opening his eyes, wiggling his toes, seems to be slow but at least the best I have seen him so far. Hence I kept the propofol off, and I will give the patient a chance to go on a weaning trial if possible. He is not quite ready to start weaning but we will continue to hold propofol and address hourly today for possible placement on pressure support and CPAP. Presently the patient is on mechanical ventilation with assist control rate of 16, volume is 450 FiO2 dropped down from 60% to 50% and his PEEP was decreased to 8. His ABG this morning showed a pO2 of 124 pCO2 of 48 pH of 7.44 patient is on propofol which is presently on hold. He is on clindamycin and for his MSSA bacteremia. He is on enteral tube feeding. Chest x-ray continues to show small areas of pneumonia bilaterally, and possibly a small right sided pleural effusion not large enough to consider thoracentesis as noted on ultrasound On 08/14/2019 patient seen in follow-up, in the intensive care unit, she remains intubated, on mechanical ventilator, on assist control mode of ventilation with FiO2 of 50%. This morning blood gases showed pO2 of 112, pCO2 45, and pH of 7.48. IV 0.9 normal saline at a rate of 10 ML per hour, heparin per weight- based protocol, and Diprivan has been on hold. Patient is lethargic although she is waking up and follow commands, wiggling toes on command. Appears to be in no acute distress, today's chest x-ray has been reviewed showing diffuse ple ural parenchymal changes consistent with pulmonary edema or ARDS. Patient continues on Kefzol and Clindamycin for MSSA and E. coli pneumonia and bacteremia, follow-up blood cultures have been negative. Patient has been afebrile, hemodynamically stable, not on any vasopressors, today's labs have be en reviewed, leukocytosis is down trending, WBC is down to 18.7, hemoglobin is 9.7, sodium is 142, potassium is 3.3, chloride is 108, CO2 32, BUN is 37 and creatinine 0.53. Patient in sinus rhythm, he remains on oral amiodarone, and heparin infusion for anticoagulation. Diuretics with Lasix 40 mg every 12 hours Patient was evaluated today on 08/15/19, remains intubated and mechanically ventilated. Patient tolerated basically 24 hours of pressure support of 10, IMV of 6 and FiO2 at 50%. However when the patient was switched to pressure support of 10 and CPAP, he was noted to have shallow breathing, his tidal volume was noted to be low, and the patient was building up with secretions into the endotracheal tube. He was suctioned but he was noted to be in a bit of distress, hence I recommended placing the patient back on assist control mode of mechanical ventilation, and obviously is not quite ready to be weaned and extubated. His ventilator settings are basically the same, unchanged from yesterday. He was on to this morning on IMV of 6 and pressure support of 10 with FiO2 at 50%. Hence I recommended not to wean and extubate today. Patient is not quite ready because he didn't tolerate the pressure support with CPAP trial. I did increase his Lasix since his chest x-ray is showing a bit of worsening of his bilateral pulmonary edema/infiltrates, Lasix was increased to 40 mg IV push every 8 hours on a trial basis. Patient remains awake, he seems to be generally weak, he follows simple instructions, but he is so weak and I'm suspecting that the patient has critical illness polyneuropathy. Reevaluated today on 08/16/19, patient remains intubated, and mechanically ventilated. Patient is on assist control rate of 12 FiO2 is 50% tidal volume is 450 PEEP of 5. ABG showed a pO2 of 86 pCO2 of 43 pH of 7.52. Patient is responding to diuretics, and his Lasix and is at 40 mg IV push every 8 hours, chest x-ray is worse. Bilateral airspace disease is noted, hence I recommended bronchoscopy and bronchial alveolar lavage which was done today. There was evidence of thick. Secretions and review these were sent for different cultures. Patient is arousable, follows very simple instructions, but he seems to be generally weak. Remains in sinus rhythm, hemodynamically stable, he is on tube feeds, and he is on the propofol which I will discontinue after the bronchoscopy. His fluid balance is -769. His IV fluids at KVO. Remains on heparin drip. After reviewing his ABG and his electrolytes, I cut down his Lasix to once daily, and I added Diamox 250 mg IV push every 12 hours. Reevaluated today on 08/17/19, patient remains in the ICU, however he was extubated yesterday. Hours after he underwent bronchoscopy. Patient had excellent. Parameters, he tolerated pressure support and CPAP, he was later extubated, and he seems to tolerate the extubation quite well. Presently he is on 4 L nasal cannula, O2 saturation is in the low 90s, patient seems to be comfortable. Remains on Lasix and Diamox, and his urine output is excellent about 60 mL per hour. Remains on heparin however I plan to switch him eventually to Eliquis once the patient tolerates oral feeding. And he would have some swallow evaluation and possibly sips of water would be given today and will hopefully advance his diet gradually. Chest x-ray continues to show bilateral air space disease. Suspicious for congestive heart failure, but underlying aspiration pneumonia is very likely. Patient was reevaluated today on 08/05/19, remains in the ICU, tolerated the extubation quite well over the last 3 days. Patient is on 4 L nasal cannula, seems to be generally weak, he passed his swallow evaluation, his IV fluids remains at KVO, and the patient is profoundly weak I believe the patient farias stained some critical illness polyneuropathy/myopathy. Remains on diuretics however I switch to diuretics to oral form and I switched his Protonix to oral form. I discontinued his heparin and started him today on Eliquis. Patient will clearly require significant rehabilitation, and will initiate the process with social and political studies professor and home health care case manager to consider placement sometime next week. Chest x-ray is improving,disease bilaterally seems to be better Objective - Vital Signs Vital signs: Vital Signs Temp 98.5 F 08/18/19 09:00 Pulse 80 08/18/19 11:03 Resp 23 08/18/19 10:00 BP 139/84 08/18/19 10:00 Pulse Ox 88 L 08/18/19 09:00 Intake & Output 08/17/19 08/18/19 08/18/19 18:59 06:59 18:59 Intake Total 682 689.273 170 Output Total 1720 700 180 Balance -1038 -10.727 -10 Weight 102.2 kg Intake: IV 432 270 170 Clindamycin 600 mg In 150 50 50 Dextrose 5% in Water 50 ml @ 50 mls/hr IVPB Q8HR [facility] Rx#:[id number] Pressure bag 12 Sodium Chloride 0.9% 1, 120 170 70 000 ml @ 10 mls/hr IV . Q24H [facility] Rx#:[id number] ceFAZolin 2 gm In Sodium 150 50 50 Chloride 0.9% 50 ml @ 100 mls/hr IVPB Q8HR [facility] Rx# :[id number] Intake, IV Titration 250 319.273 Amount Heparin Sod,Pork in 0.45% 250 319.273 NaCl 25,000 unit In 0.45 % NaCl 1 250ml.bag @ 12 UNITS/KG/HR 12.732 mls/hr IV .[id number] [facility] Rx#: [id number] Oral 100 Output: Urine 1720 700 180 Other: Voiding Method Indwelling Catheter Indwelling Catheter ABP, PAP, CO, CI - Last Documented Arterial Blood Pressure 151/56 - Exam Gen. appearance, revealed 64-year-old white male on 4 L nasal cannula, in no distress. Head: Atraumatic normocephalic. EENT: PERRLA, EOMI, no icterus, no neck masses, no JVD, no stridor Lungs: Symmetrical chest expansion, diminished breath sounds at the bases, minimal crackles at the bases no rhonchi and no wheezes. Cardiac exam : Normal S1 and S2, no S3 gallop. No murmur. Abdominal exam: Soft nontender no megaly no rebound no guarding. Examination: No clubbing edema or cyanosis. Examination: No rashes Neurologically alert and oriented 3, no gross focal neurologic deficits. However the patient is noted to be profoundly weak. Cannot raise his arms or legs against gravity. Psychiatric: Normal mood affect and normal mental status examination. - Labs CBC & Chem 7: 08/18/19 04:04 08/18/19 04:01 Labs: Abnormal Lab Results - Last 24 Hours (Table) 08/17/19 08/18/19 08/18/19 Range/Units 17:05 04:01 04:04 WBC 11.9 H (3.8-10.6) k/uL RBC 3.10 L (4.30-5.90) m/uL Hgb 8.1 L (13.0-17.5) gm/dL Hct 26.4 L (39.0-53.0) % MCHC 30.6 L (31.0-37.0) g/dL RDW 17.0 H (11.5-15.5) % APTT (22.0-30.0) sec Chloride 110 H (98-107) mmol/L BUN 22 H (9-20) mg/dL Creatinine 0.57 L (0.66-1.25) mg/dL Glucose 101 H (74-99) mg/dL POC Glucose (mg/dL) 115 H (75-99) mg/dL Calcium 8.1 L (8.4-10.2) mg/dL 08/18/19 08/18/19 08/18/19 Range/Units 04:04 10:47 11:43 WBC (3.8-10.6) k/uL RBC (4.30-5.90) m/uL Hgb (13.0-17.5) gm/dL Hct (39.0-53.0) % MCHC (31.0-37.0) g/dL RDW (11.5-15.5) % APTT 42.0 H 52.5 H (22.0-30.0) sec Chloride (98-107) mmol/L BUN (9-20) mg/dL Creatinine (0.66-1.25) mg/dL Glucose (74-99) mg/dL POC Glucose (mg/dL) 124 H (75-99) mg/dL Calcium (8.4-10.2) mg/dL Microbiology - Last 24 Hours (Table) 08/16/19 09:27 Gram Stain - Final Bronchial Washings - Random Bronchial Washings Culture - Final 08/15/19 11:00 Gram Stain - Preliminary Sputum Sputum Culture - Preliminary Assessment and Plan Assessment: Impression: Acute hypoxic and hypercapnic respiratory failure. Suspect aspiration pneumonia. Possible diastolic congestive heart failure. MSSA bacteremia Acute kidney injury, improving. Secondary to acute sepsis. Acute sepsis, and acute lactic acidosis on presentation. Chronic psychiatric disorder/bipolar disorder. Dyslipidemia. Benign essential hypertension. Shock liver. Improved. Acute rhabdomyolysis, resolved Pulmonary hypertension. Staph aureus septicemia, MSSA. Hyperchloremic hypernatremia secondary to diarrhea and intravascular volume depletion. Improved with D5W. Acute hepatic/metabolic encephalopathy, resolved. Suspect critical illness polyneuropathy/myopathy. Will need long-term rehabilitation. Status post bronchoscopy and BAL on 08/16/19. Cultures are negative Recommendation: Extubated on 08/15 tolerated the extubation well however I am a bit concerned about his profound weakness. Advanced diet as tolerated. Switching his IV diuretics and IV heparin to oral form. Continue GI and DVT prophylaxis.. Continue antibiotics. Continue amiodarone. Continue metoprolol. Incentive spirometry. Continue bronchodilators. Physical therapy. Will need placement, rehab facility is strongly recommended. In the meantime continue physical therapy. We'll continue to monitor in the ICU for the next 24 hours. Time with Patient: Less than 30
[2019-08-18] MEDS: SODIUM CHLORIDE 0.9% 1,000 ML IV SCH (15:59)
[2019-08-18 17:04] LABS: Glucose,Whole Blood 106 mg/dL (75-99)
[2019-08-18] MEDS: HYDROmorphone 1 MG/ML 1 ML SYRINGE IVP PRN (21:25)
--- NOTE | 2019-08-18 22:48 | P.PN ---
Subjective Progress Note Date: 08/18/19 Principal diagnosis: Acute hypoxic and hypercapnic respiratory failure secondary to sepsis from a staphylococcal bacteremia possible COPD exacerbation Patient is admitted for acute hypoxic and hypercapnic respiratory failure which was believed to be secondary to Covid 19 pneumonia patient is presently on FiO2 of 60%. Patient does have related troponin by highly elevated be high d-dimer is of which patient is on anti-correlation dose of the Lovenox. Patient scored 19 is pending patient has chest x-ray findings consistent with the pulmonary edema or atypical pneumonia or Covid 19 pneumonia along with the significant transaminitis elevated highly elevated LDH highly elevated. Ferritin and significant lymphopenia ration continues to have fever. Patient also has acute renal failure secondary to possibly acute tubular necrosis patient is on sodium bicarbonate and D5 because of hyperkalemia. 08/07/2019 Patient the white blood cell count went up to 17,000. His blood cultures are positive for staph aureus we'll repeat the blood cultures tomorrow. Patient liver enzymes are elevated because of shock liver ultrasound did not show significant abnormality. Patient had an elevated ammonia yesterday which is actually better now after lactulose, patient is off pressors. Patient remains on amiodarone. Computed tomography scan of the brain did not show any signif icant abnormality patient Covid 19 is negative patient remains on cefepime and vancomycin. Primary source is probably lung. Patient has fairly good urine output at 400 mL per hour on volume control ventilation set up respiratory rate of 28 total volume of 450 PEEP of 15 episode of 50% patient's hypercapnic respiratory failure improved and hypoxic respiratory failure improved patient has pH of 7.36 pCO2 of 37 08/07/2028 patient doesn't have any significant clinical improvement remains bacteremic repeat blood cultures are being obtained for today and tomorrow as well. Patient has staph aureus in the blood patient probably will need the transesophageal echocardiogram. Patient is off sedation but is not arousable yet because of which neurology is evaluating the patient and patient is getting EEG patient remains on Vanco mycin cefepime was switched to Zosyn because of concern for aspiration patient aspirin cultures are positive for staph aureus and E. coli along with the species infectious disease is following the patient as well. 08/09/2019 She is still the remains is severely encephalopathic and it and the just withdrawing from painful stimuli off sedation for about 2 days. Patient has severe toxic and metabolic encephalopathy patient is mildly alkalotic patient's present tidal volume is 450 and set up respiratory rate was Down now and patient is breathing over the ventilator and is breathing at around 24/m on an average. FiO2 of 50% PEEP of 10. Patient liver enzymes are bit better patient remains on Zosyn and vancomycin probably vancomycin can be discontinued as patient has MSSA in the blood cultures. Infectious disease is following the patient. Patient white blood cell count remains high patient eventually will need a BRENDA to rule out endocarditis, will plan on this if he has some response on the antibiotics and less encephalopathic and if there is any improvement 08/10/2019 No significant change in his clinical condition including his mental status which it has not improved at patient is hyponatremic because of IV fluids patient is on D5 water now because of hypernatremia and hyperchloremia. Patient remains in the same vent settings as as today remains bacteremic prognosis is extremely poor. Tomorrow we'll discuss with the family regarding overall goals of care. Patient is presently not on pressor support serum creatinine remains stable patient is on amiodarone for atrial fibrillation patient will need repeat blood cultures again tomorrow patient is having thick secretions from the endotracheal to. Patient is presently on Zosyn and vancomycin, rifampin was added patient was started on daily. Because of elevated blood pressure by animal anatomist 08/11/2019 Independent improvement in his clinical status today daughter is awaiting evaluation by neurologist if patient remains severely encephalopathy Secondary. There is no chance of reasonable neurological recovery she wants to make him comfort care at that time. Patient remains on clevidipine. Patient last 2 blood cultures are negative. 08/11/2022 Patient is still on ventilator support patient the blood cultures are negative so far his bacteremia secondary to pneumonia. Patient is bit more responsive and response to 2 painful stimuli. White blood cell count started improving patient overall has some improvement has good urine output. 08/13/2019 Patient has significant improvement competitors. Patient is much more awake will undergo repeat cultures tomorrow 08/14/2019 Patient is bit more awake appears to have been improving patient will undergo weaning trial later today 08/15/2019 Patient is bit alkalotic today patient failed a weaning trial patient remains on ceftezole and then clindamycin. Patient is still having quite a few secretions now patient is on Alesse sedation patient respiratory than went has come down to 12 because of his respiratory alkalosis. 08/16/2019 patient is currently on mechanical ventilator.she underwent bronchoscopy and bronchoalveolar lavage today. Follow-up culture reports. Patient is arousable andfollow simple commands. Plan for weaning from ventilator today. Patient remains afebrile. Currently on heparin drip due to history of atrial fibrillation. currently on antibiotics the form of cefazolin and clindamycin. Laboratory data reviewed. Pulmonary is on board. 08/17/2019 Patient was successfully extubated yesterday. Currently on oxygen at 4 L via nasal cannula. Patient still drowsy but able to follow simple commands and open his eyes. Currently on Lasix and Diamox. Patient will be started on oral diet after bedside swallow evaluation. Patient is afebrile. Continued on antibiotics the form of cefazolin and clindamycinfor staph aureus bacteremia. Blood cultures have been negative so far. chest x-ray showed continued changes ofCHF. 08/18/2019 Patient is currently awake alert oriented x3. But lethargic and has been having generalized weakness likely due to myopathy. PT OT may be consulted. Patient was started on clear liquid diet will be advanced. Tolerating oral diet. Patient has been afebrile. Lasix was changed to by mouth as well. Chest x-ray today showed improving changes of pulmonary edema. Patient remained antibiotics in the form of cephalosporin and clindamycin. All inpatient medications were reviewed and appropriate changes in these medications as dictated in the interval history and assessment and plan. Objective - Vital Signs Vital signs: Vital Signs Temp 98.5 F 08/18/19 09:00 Pulse 79 08/18/19 09:00 Resp 24 08/18/19 09:00 BP 144/72 08/18/19 09:00 Pulse Ox 88 L 08/18/19 09:00 Intake & Output 08/17/19 08/18/19 08/18/19 18:59 06:59 18:59 Intake Total 682 689.273 160 Output Total 1720 700 130 Balance -1038 -10.727 30 Weight 102.2 kg Intake: IV 432 270 160 Clindamycin 600 mg In 150 50 50 Dextrose 5% in Water 50 ml @ 50 mls/hr IVPB Q8HR [facility] Rx#:[id number] Pressure bag 12 Sodium Chloride 0.9% 1, 120 170 60 000 ml @ 10 mls/hr IV . Q24H [facility] Rx#:[id number] ceFAZolin 2 gm In Sodium 150 50 50 Chloride 0.9% 50 ml @ 100 mls/hr IVPB Q8HR [facility] Rx# :[id number] Intake, IV Titration 250 319.273 Amount Heparin Sod,Pork in 0.45% 250 319.273 NaCl 25,000 unit In 0.45 % NaCl 1 250ml.bag @ 12 UNITS/KG/HR 12.732 mls/hr IV .[id number] [facility] Rx#: [id number] Oral 100 Output: Urine 1720 700 130 Other: Voiding Method Indwelling Catheter Indwelling Catheter ABP, PAP, CO, CI - Last Documented Arterial Blood Pressure 151/56 - Exam PHYSICAL EXAMINATION: GENERAL: Patient is Awake alert and oriented x3. Generalized weakness and lethargy. HEENT: Pupils are round and equally reacting to light. EOMI. No scleral icterus. No conjunctival pallor. Normocephalic, atraumatic. No pharyngeal erythema. No thyromegaly. CARDIOVASCULAR: S1 and S2 present. No murmurs, rubs, or gallops. PULMONARY: Chest is clear to auscultation, no wheezing or crackles. ABDOMEN: Soft, nontender, nondistended, normoactive bowel sounds. No palpable organomegaly. MUSCULOSKELETAL: No joint swelling or deformity. EXTREMITIES: No cyanosis, clubbing, or pedal edema. NEUROLOGICAL: Gross neurological examination did not reveal any focal deficits. SKIN: No rashes. - Labs CBC & Chem 7: 08/18/19 04:04 08/18/19 04:01 Labs: Abnormal Lab Results - Last 24 Hours (Table) 08/17/19 08/17/19 08/18/19 Range/Units 11:51 17:05 04:01 WBC (3.8-10.6) k/uL RBC (4.30-5.90) m/uL Hgb (13.0-17.5) gm/dL Hct (39.0-53.0) % MCHC (31.0-37.0) g/dL RDW (11.5-15.5) % APTT (22.0-30.0) sec Chloride 110 H (98-107) mmol/L BUN 22 H (9-20) mg/dL Creatinine 0.57 L (0.66-1.25) mg/dL Glucose 101 H (74-99) mg/dL POC Glucose (mg/dL) 117 H 115 H (75-99) mg/dL Calcium 8.1 L (8.4-10.2) mg/dL 08/18/19 08/18/19 Range/Units 04:04 04:04 WBC 11.9 H (3.8-10.6) k/uL RBC 3.10 L (4.30-5.90) m/uL Hgb 8.1 L (13.0-17.5) gm/dL Hct 26.4 L (39.0-53.0) % MCHC 30.6 L (31.0-37.0) g/dL RDW 17.0 H (11.5-15.5) % APTT 42.0 H (22.0-30.0) sec Chloride (98-107) mmol/L BUN (9-20) mg/dL Creatinine (0.66-1.25) mg/dL Glucose (74-99) mg/dL POC Glucose (mg/dL) (75-99) mg/dL Calcium (8.4-10.2) mg/dL Microbiology - Last 24 Hours (Table) 08/16/19 09:27 Gram Stain - Final Bronchial Washings - Random Bronchial Washings Culture - Final 08/15/19 11:00 Gram Stain - Preliminary Sputum Sputum Culture - Preliminary Assessment and Plan Assessment: Acute hypoxic and hypercapnic respiratory failure secondary to sepsis from a staphylococcal bacteremia possible COPD exacerbation. patient is currently extubated. -persistent bacteremia with MSSA. Patient patient was switched to cefazolin and clindamycin, which provides double coverage for MSSA and also covers aspiration pneumonia if any.repeat cultures have been negative. -Sepsis shock shock resolved . secondary to staphylococcal pneumonia, patient has persistent bacteremia. suspected aspiration pneumonia. - possible acute CHF with diastolic dysfunction -Severe toxic encephalopathy from sepsis and septic shock -Acute renal failure possibly acute tubular necrosis patient creatinine improved with IV fluids -Lactic acidosis secondary to sepsis Hypernatremia and hyperchloremia secondary to normal saline which was discontinued and patient received Lasix yesterday. -Hypertension -Hyperlipidemia next and heparin hypertension -Elevated liver enzymes probably secondary to shock liver. -Hepatic encephalopathy: Ammonia level is bit better now. -Troponin leak secondary to myocardial injury from sepsis. -Severe pulmonary hypertension . Time with Patient: Greater than 30
[2019-08-18 23:34] LABS: Glucose,Whole Blood 128 mg/dL (75-99)
[2019-08-19] MEDS: CLINDAMYCIN 600 MG in DEXTROSE 5% IN WATER 50 ML IVPB SCH ×6 (00:31→16:46)
--- NOTE | 2019-08-19 00:42 | PN ---
PROGRESS NOTE DATE OF SERVICE: 08/18/2019 REASON FOR FOLLOWUP: Aspiration pneumonia and MSSA bacteremia. INTERVAL HISTORY: The patient is currently afebrile. The patient is hemodynamically stable. He is breathing comfortably. Denies having any chest pain or shortness of breath. Occasional cough. No abdominal pain. Diarrhea has improved. PHYSICAL EXAMINATION: Blood pressure 139/78 with a pulse of 70, temperature 99. He is 92% on 4 L nasal cannula. General description is a middle-aged male lying in bed in no distress. RESPIRATORY SYSTEM: Unlabored breathing, clear to auscultation anteriorly. HEART: S1, S2. Regular rate and rhythm. ABDOMEN: Soft, no tenderness. LABS: Hemoglobin is 8.1, white count 11.9, BUN of 22, creatinine 0.57. Blood culture repeat has been negative. Bronchoscopy culture negative. DIAGNOSTIC IMPRESSION AND PLAN: Patient admitted to the hospital with acute respiratory failure with sepsis in this patient who did have evidence of MSSA bacteremia, likely source is an aspiration pneumonia. Repeat culture has been negative so far. Patient is covered with cefazolin and clindamycin to continue and monitor his clinical course closely. MMODL / IJN: [id number] /
[2019-08-19 05:56] LABS: Anisocytosis Slight; HCT 24.8 % (39.0-53.0); HGB 7.9 gm/dL (13.0-17.5); Hypochromasia Slight; MCH 26.9 pg (25.0-35.0); Mean Platelet Volume 7.9; Platelet Count 518 k/uL (150-450); RBC 2.95 m/uL (4.30-5.90); RDW 17.1 % (11.5-15.5); WBC 11.9 k/uL (3.8-10.6)
[2019-08-19 06:15] LABS: African American GFR (CKD) >90 (>60 ml/min/1.73 sqM); Anion Gap 5 mmol/L; Blood Urea Nitrogen 19 mg/dL (9-20); Calcium 8.1 mg/dL (8.4-10.2); Carbon Dioxide 22 mmol/L (22-30); Chloride 109 mmol/L (98-107); Glucose 97 mg/dL (74-99); Non-African American GFR(CKD) >90 (>60 ml/min/1.73 sqM); Potassium 3.3 mmol/L (3.5-5.1); Sodium 136 mmol/L (137-145)
[2019-08-19 06:45] LABS: Glucose,Whole Blood 107 mg/dL (75-99)
--- NOTE | 2019-08-19 07:17 | XR ---
EXAMINATION TYPE: XR chest 1V portable DATE OF EXAM: 08/19/2019 Comparison: 08/18/2019 Clinical History: 64-year-old male sob Findings: Reverse left shoulder arthroplasty. Heart mildly enlarged. Increasing diffuse bilateral airspace dise ase. Persistent moderate bilateral pleural effusions with bibasilar opacities. Impression: Increasing diffuse bilateral airspace disease, likely pulmonary edema, with persistent moderate pleur al effusions.
[2019-08-19] MEDS: IPRATROPIUM-ALBUTEROL 3 ML NEB INHALATION SCH ×4 (07:56→21:12)
[2019-08-19] MEDS: INSULIN ASPART (NovoLOG) 100 UNIT/ML VIAL SQ SCH ×3 (08:38→18:18)
[2019-08-19] MEDS: AMIODARONE 200 MG TAB PO SCH ×2 (08:41→20:46)
[2019-08-19] MEDS: acetaZOLAMIDE 250 MG TAB PO SCH ×2 (08:41→21:27)
[2019-08-19] MEDS: ASPIRIN 81 MG PO SCH (08:41)
[2019-08-19] MEDS: APIXABAN 5 MG TAB PO SCH ×2 (08:41→20:45)
[2019-08-19] MEDS: FUROSEMIDE 40 MG TAB PO SCH (08:41)
[2019-08-19] MEDS: PANTOPRAZOLE 40 MG TABLET PO SCH (08:41)
[2019-08-19] MEDS: METOPROLOL TARTRATE 50 MG TAB PO SCH ×3 (08:42→20:45)
[2019-08-19] MEDS ORDERED: FUROSEMIDE 10 MG/ML 10 ML VIAL IV STA (08:54)
--- NOTE | 2019-08-19 09:49 | P.PN ---
Subjective Progress Note Date: 08/19/19 Principal diagnosis: Acute hypoxic and hypercapnic respiratory failure second to aspiration pneumonia 62-year-old male patient who was brought into the emergency department today unresponsive and profoundly hypoxic. The patient was in acute hypoxic respiratory failure. Initial pulse ox was in the mid 30s. Apparently he was not also communicating or responding. He was apparently awake and alert on the morning prior to him coming to the hospital according to the landlord. The landlord noted that the patient was appearing ill and called EMS. Upon EMS arrival, the patient was found to be obtunded. He had a fever of 10 1F. He was found to be hypoxic, brought into the emergency room he was found to be tachycardic and hypoxic with was placed on supplemental oxygen without any benefit and ultimately the patient was intubated and placed on a mechanical ventilator. COVID 19 is suspected. The patient was placed on the opposite isolation. The patient had the appropriate nasal swabs. Chest x-ray showed bilateral airspace disease consistent with pneumonia in addition to interstitial pneumonitis. ET tube was around 3.7 cm above the mario. NG tube was extending into the left abdomen. There was a right upper lobe consolidation noted and a tiny right-sided pleural effusion. No evidence of any pneumothorax. There was bilateral infiltrates and coarse interstitium and a prosthetic left shoulder. The patient has a white cell count of 4.9. He had some lymphopenia. His platelet counts is no within normal limits. The blood gases was done on 100% nonrebreather showed a pH of 7.17 with a pCO2 of 66 and pO2 of 45. The patient also had an acute kidney injury with a creatinine of 1.65. Epigastric level was at 3.1. The ALT is at 1106 with an ammonia level of 146 and a bilirubin of 0.5 and an albumin of 4.1. The serum alcohol was negative and the patient has negative salicylates and acetaminophen. Influenza screen has been negative. Covid 19 analysis still pending for now. This patient lives with a sister in a house and he collects Social Security disability. He has had issues with mental health and the patient has been dealing with bipolar disorder and chronic insomnia of many years duration. He has also chronic anxiety disorder. No history of any previous suicidal ideation or intent. No delusions or hallucinations based on recent psychiatric evaluation that was in the hospital. On today's evaluation of 62,020 the patient is being seen in follow-up in the intensive care unit. Noted the patient is intubated on a mechanical ventilator and is suspected to have Covid 19. He is afebrile on today's evaluation. He remains on a mechanical ventilator. He is sedated with propofol running at 20 mg per KG per minute. He was given a total of 5 L of IV fluid as the patient was hypotensive and currently the fluid is running at 75 mL an hour of normal saline. He remains on norepinephrine infusion at 0.08 mg per KG per minute. He remains on a mechanical ventilator. His assist-control mode at the rate of 28 with a tidal volume of 450 and FiO2 of 60% with a PEEP of 15. His blood gases showed a pH of 7.12 with a pCO2 of 58 and pO2 of 187. This was done and FiO2 of 100%. Otherwise, the patient has blood abnormalities it is consistent with Covid 19 infection. He has a rhabdomyolysis with a CPK level of 6114. He has also transaminitis with a AST of 3354, ALT of 1962, and his LDH level is at 8367. His creatinine is at 1.2, which is up from a baseline of 1.65 with fluid resuscitation. His current minute ventilation is 13 L. I made recommendations to keep the same vent setting. Based on the blood on of some non-anion gap metabolic acidosis, and with recommendations to start the patient on bicarb infusion and addition to 2 A of IV bicarb pushes. He was having temperatures throughout the night with temperature maximum 100.8. Current temperature is 99.6. He'll be started on enteral feeding for nutritional support. Covid 19 evaluation is still pending for now. On today's evaluation of 08/07/2019 and seeing this patient for a follow-up. The patient has sedated with propofol. He was given a sedation holiday yesterday and his neurologic exam was suboptimal as the patient did not show adequate neurologic recovery. Based on that, a CAT scan of the brain was done and the CAT scan of the brain was negative for any acute abnormalities. Noted the patient was profoundly hypoxic and at time of admission to the hospital and there is a suspicion for hypoxic encephalopathy. Contrary to my expectations, the patient checked negative for Covid 19 infection. The blood culture came back positive for staph aureus. Currently is on a combination of cefepime and vancomycin. The patient was resuscitated with more than 5 L of normal saline and the patient is also requiring some pressors for hemodynamic support and levo fed was started and 8 on was placed on hold as of 5:00 this morning. Urine output in the order of 40 mL an hour. In terms of sedation, the patient is on propofol at 20 g per KG per minute. Note that the patient had issues with a significant leak around his orotracheal tube. This was replaced yesterday by PINMAKER without any major difficulties. This morning, he remains on a VC plus mode with a rate of 28 and a tidal volume of 450 and a nighttime of 1 second with a PEEP of 15 with an FiO2 of 50%. Blood gases from today showed a pH of 7.36 with a pCO2 of 37 and pO2 of 92. Chest x-ray showing diffuse bilateral pulmonary infiltrates. His cardiac rhythm is still in atrial fibrillation. He is on amiodarone maintenance at 0.5 mg per minute. The patient has a creatinine of 1.5. There is still evidence of transaminitis with elevation of the AST and ALP and both are improving. LDH level is elevated at 5738. CPKs improving at 2431. C-reactive protein is elevated at 622. Note that the LDH is on the decline, CPKs on the decline on today's evaluation. LFTs are also improving. On 08/08/2019 on seeing this patient for a follow-up. The patient has been off sedation since yesterday. I am not seeing an adequate neurologic recovery in this patient. There may be a component of hepatic encephalopathy in the patient's went into shock liver. Nevertheless, his ammonia is dropping. He is on lactulose. He is producing adequate amount of bowel activity. He is undergoing training the painful stimulation. Pupils are about 3 mm in size and there is C-reactive to light. There is a very weak cough and a gag. Absolutely no response to deep painful stimulation. No seizure activity has been noted. Neurology will be consulted on the case. EEG will be ordered. Meanwhile, the patient is clearly becoming a case of possible aspiration staphylococcal pneumonia. His blood culture came back positive for staph aureus. His sputum positive for staph. He also has gram-negative bacillus in his sputum which turner machine to be E. coli. For now, the cultures and the blood to be MSSA. The patient was on examination of cefepime and vancomycin. I dropped the cefepime and I u tilized Zosyn to give him better anaerobic coverage as the patient clearly has a history of aspiration. Meanwhile, the Covid test came back negative. The patient remains on a mechanical ventilator. On today's chest x-ray there is worsening over the bilateral pulmonary infiltrates worse on the right. ET tube remains in a good location. The patient remains on an assist-control mode at the rate of 18 with a tidal volume of 450 and FiO2 of 50% with a PEEP of 10. Blood gas showed a pH of 7.46 with a pCO2 of 34 and pO2 of 103. CVP is ranging between 12 and 14. He remains in atrial fibrillation. He is on amiodarone drip maintenance at 0.5 mg per minute. He is also on normal saline at the rate of 75 mL an hour. His age fibrillation is under better control and he is on no pressors. He can tolerate beta blockers. He is having low-grade fever still. The white cell count is up to 22. The shock liver is improving including the AST and ALP level. The LDH level was elevated. The CPKs also improving is down to 2431. His ammonia level is down to 85. His coagulation profile is within normal limits. On 08/09/2019 the patient is being seen in follow-up in intensive care unit. Unfortunately, the patient has been off sedation for more than 24 hours and the patient is still not showing significant neurologic recovery. The patient is not following any specific commands. In fact he is not even withdrawing to deep painful stimulation. No seizure activity has been noted. EEG was done and showed diffuse slowing and it was consistent with severe encephalopathy which could be toxic metabolic encephalopathy versus hypoxic encephalopathy. The patient will be kept off sedation. Meanwhile, the ammonia level is progressively coming down and is down to 58. He continues to have a week cough and gag reflex. The patient remains in atrial fibrillation. The patient remained on assist control mode of ventilation. He is on VC plus mode at the rate of 28 with a tidal volume of 450 and FiO2 of 50% with a PEEP of 10. The blood gases from today shows a component of respiratory alkalosis with a pH of 7.5 with a pCO2 of 36 and pO2 of 71. The white cell count of 23. The patient has developed some hyperchloremic hypernatremia in the sodium level is up to 147 with a chloride of 114. Renal function is stable. The patient is receiving vital high protein at the rate of 52 mL an hour. In terms of atrial fibrillation, I had utilized back the amiodarone drip at 0.5 mg per minute and the patient is also on metoprolol 50 mg by mouth 3 times a day. Heart rate is still slightly tachycardic and will continue the same regimen for now. The patient was given a dose of Lasix yesterday. The patient Is producing better urine output for now. His weight is still up. The CPKs down to 395. The AST is down to 1000. ALT is down to 58. LDH is down to 03/10/2007. Calcium level at 7.1. No other significant issues otherwise over the past 24 hours. He remains on a combination of Zosyn and vancomycin. The blood culture and the sputum culture was positive for MSSA. The sputum culture was positive for E. coli. The chest x-ray still showing rather consolidation worse on the right compared to the left. ET tube remains in a good location. On 08/10/2019 the patient has been approximately 72 hours of sedation. Unfortunately, we do not see any significant neurologic recovery the patient's condition. He is still not responding to any verbal or deep painful stimulation. He remains completely unresponsive. On this morning, I have a mild assist-control mode of ventilation with a VC plus mode at a tidal volume of 450 FiO2 of 50% with a PEEP of 10 and the respiratory rate of 24. His blood gases showed a component of respiratory alkalosis. His pH is at 7.53 with a pC O2 of 39 pO2 of 63. Chest x-ray still showing bilateral pneumonia bilateral airspace disease worse on the right along with cardiomegaly and bilateral pleural effusions. ET tube is in a good location. The patient's white cell count is at 27. The patient is still having episodes of fever. Most recent blood culture from 2 days ago was positive for MSSA and MSSA was also cultured and his lungs and it was cultured also E. coli in his lungs. We are still thinking that this was an aspiration pneumonia. Shock liver, his LFTs are nearly normalized, severe has also dropped and ammonia level is being monitored is still elevated at 83. The lactulose was held as the patient was having liquidy stool and the patient had become also hyperchloremic and the sodium level is up to 149. He is receiving free water supplements with NG for now. He is also on vital high protein. In terms of his atrial fibrillation, rate is under better control with a combination of amiodarone maintenance of 0.5 mg per minute and Cardizem drip at 10 mg an hour. The patient is also on IV heparin. The active issue for now is his altered mentation. On 08/11/2019, I'm seeing the patient for a follow-up in intensive care unit. His been off sedation for the past 92 hours. On today's evaluation that is some slight grimacing upon very deep painful stimulation and upon pinching on his upper chest. For the most part he remains unresponsive. No seizure activity. Shock liver has recovered. Ammonia level is on the decline. I started the patient on rifixamine 550 mg by mouth twice a day yesterday and ammonia level is down to 45. I suspect a component of hypoxic encephalopathy although the possibility of metabolic encephalopathy cannot be completely ruled out. He is on a mechanical ventilator. No change in the vent setting. No changes in the x-ray findings as the patient has extensive airspace disease bilaterally more so on the right lower lobe. On the ventilator, the patient is on a VC plus mode with a tidal volume of 450 and FiO2 of 50% with a PEEP of 10 and tidal volume of 450 with a rate of 16. The patient's blood gas showed a pH of 7.52 with a pCO2 of 39 and pO2 of 67. On and off he was still having fever yesterday. Repeat blood cultures were sent. He remains on examination Zosyn and vancomycin. He is tolerating his enteral feeding for nutritional support. Is on IV heparin drip regarding his atrial fibrillation. He remains on amiodarone drip and oral metoprolol for rate control. He is also started on Cleviprex which is running at 2 mg an hour for tighter blood pressure control. The active issue remains his altered mentation with a possibility of him having hypoxic encephalopathy with the details as mentioned above. Patient was reevaluated today on 08/12/19, remains on mechanical ventilation, his ventilator settings are assist control rate 16 volume control plus at 450 FiO2 at 50% and PEEP of 10. ABG showed a pO2 of 79 pCO2 of 39 pH of 7.52. Chest x- ray continues to show bilateral pleural effusions, and by basilar space disease, hence I recommended ultrasound to evaluate for possible thoracentesis if the effusion isn't large enough to be drained. However the ultrasound showed minimal pleural effusions bilaterally, insufficient for thoracentesis. Patient remains on Zosyn and vancomycin, and he hasn't MSSA bacteremia, sputum is positive for E. coli and staph aureus. Neurologically the patient is about the same, however the only change noted today is the fact that the patient tries to open his eyes and grimacing upon deep painful stimuli. Remains off narcotics and sedatives. WBC count is up to 25.3 today slightly improved compared to yesterday. Basic metabolic profile is basically normal and his BUN is improving down to 38 creatinine is 0.55. Liver enzymes are steadily improving. Ammonia is 60 today. It was as high as 146 about a week ago remains on rifaximin. Reevaluated today on, patient remains in the ICU, intubated and mechani raul ventilated. Yesterday the patient had significant agitation and he had to be placed back on propofol. This morning the propofol was discontinued, and the patient seems to be more responsive to stimuli/verbal stimuli patient is opening his eyes, wiggling his toes, seems to be slow but at least the best I have seen him so far. Hence I kept the propofol off, and I will give the patient a chance to go on a weaning trial if possible. He is not quite ready to start weaning but we will continue to hold propofol and address hourly today for possible placement on pressure support and CPAP. Presently the patient is on mechanical ventilation with assist control rate of 16, volume is 450 FiO2 dropped down from 60% to 50% and his PEEP was decreased to 8. His ABG this morning showed a pO2 of 124 pCO2 of 48 pH of 7.44 patient is on propofol which is presently on hold. He is on clindamycin and for his MSSA bacteremia. He is on enteral tube feeding. Chest x-ray continues to show small areas of pneumonia bilaterally, and possibly a small right sided pleural effusion not large enough to consider thoracentesis as noted on ultrasound On 08/14/2019 patient seen in follow-up, in the intensive care unit, he remains intubated, on mechanical ventilator, on assist control mode of ventilation with FiO2 of 50%. This morning blood gases showed pO2 of 112, pCO2 45, and pH of 7.48. IV 0.9 normal saline at a rate of 10 ML per hour, heparin per weight- based protocol, and Diprivan has been on hold. Patient is lethargic although she is waking up and follow commands, wiggling toes on command. Appears to be in no acute distress, today's chest x-ray has been reviewed showing diffuse pleural parenchymal changes consistent with pulmonary edema or ARDS. Patient continues on Kefzol and Clindamycin for MSSA and E. coli pneumonia and bacteremia, follow-up blood cultures have been negative. Patient has been afebrile, hemodynamically stable, not on any vasopressors, today's labs have been reviewed, leukocytosis is down trending, WBC is down to 18.7, hemoglobin is 9.7, sodium is 142, potassium is 3.3, chloride is 108, CO2 32, BUN is 37 and creatinine 0.53. Patient in sinus rhythm, he remains on oral amiodarone, and heparin infusion for anticoagulation. Diuretics with Lasix 40 mg every 12 hours On 08/19/2019 patient seen in follow-up in intensive care unit. Patient was successfully weaned and extubated on 08/16/2019, he is currently on 6 L of oxygen the pulse ox of 94%, afebrile, hemodynamically patient is stable, patient is on IV fluids 0.9 normal saline at a rate of 10 ML per hour, he is very generally weak, he can hardly move his fingers. Patient is awake, oriented to self and the place, he is following command. He denies any acute distress, lung sounds reveal scattered rhonchi bilaterally, patient is able to cough and expectorate yellowish colored phlegm at times. Physical therapy has been working with the patient however patient is extremely weak, and has only been able to sit in the chair position in bed. Upper and lower extremities are positive for 1+ edema, patient remains on daily dose of oral Lasix at 40 mg daily. He is in -150 ML fluid balance over the last 24 hours. We'll give the patient additional dose of IV Lasix 60 mg this morning, this morning patient is requiring increasing amount of oxygen, and he was placed on BiPAP with pressures of 12 and 5 and 50%. This morning's chest x-ray shows increasing diffuse bilateral airspace disease likely related to pulmonary edema with persistent moderate pleural effusions. Patient did have a bedside bronchoscopy with bronchoalveolar lavage on 08/16/2019, and Gram stain has shown no organisms. H is sputum culture from 08/05/2019 was positive for MSSA, and E. coli, and blood cultures from 08/05/2019, and 08/07/2019 were positive for MSSA. Patient is on clindamycin and For Antibiotic Coverage. He is currently in sinus rhythm, he is on Eliquis for paroxysmal atrial fibrillation and oral Cordarone. Objective - Vital Signs Vital signs: Vital Signs Temp 98.4 F 08/19/19 08:00 Pulse 92 08/19/19 09:00 Resp 26 H 08/19/19 09:00 BP 161/79 08/19/19 09:00 Pulse Ox 90 L 08/19/19 09:00 Intake & Output 08/18/19 08/19/19 08/19/19 18:59 06:59 18:59 Intake Total 240 1190 130 Output Total 770 585 280 Balance -530 605 -150 Weight 102.6 kg Intake: IV 240 230 130 Clindamycin 600 mg In 50 50 50 Dextrose 5% in Water 50 ml @ 50 mls/hr IVPB Q8HR [facility] Rx#:[id number] Sodium Chloride 0.9% 1, 140 130 30 000 ml @ 10 mls/hr IV . Q24H [facility] Rx#:[id number] ceFAZolin 2 gm In Sodium 50 50 50 Chloride 0.9% 50 ml @ 100 mls/hr IVPB Q8HR [facility] Rx# :[id number] Oral 960 Output: Urine 770 585 280 Other: Voiding Method Indwelling Catheter Indwelling Catheter ABP, PAP, CO, CI - Last Documented Arterial Blood Pressure 151/56 - Exam GENERAL EXAM: Awake and alert, oriented to self and place 64-year-old white male, on 6 L of oxygen and the pulse ox of 94%, extremely weak, his voice is weak, patient is answering questions appropriately, on command, but unable to lift feet off the bed, and able to lift his head or his arms off the HEAD: Normocephalic/atraumatic. EYES: Normal reaction of pupils, equal size. Conjunctiva pink, sclera white. NOSE: Clear with pink turbinates. THROAT: No erythema or exudates. NECK: No masses, no JVD, no thyroid enlargement, no adenopathy. CHEST: No chest wall deformity. Symmetrical expansion. LUNGS: Equal air entry with no crackles, wheeze, rhonchi or dullness. CVS: Regular rate and rhythm, normal S1 and S2, no gallops, no murmurs, no rubs ABDOMEN: Soft, nontender. No hepatosplenomegaly, normal bowel sounds, no guarding or rigidity. EXTREMITIES: No clubbing, no edema, no cyanosis, 2+ pulses and upper and lower extremities. MUSCULOSKELETAL: Muscle strength and tone normal. SPINE: No scoliosis or deformity SKIN: No rashes CENTRAL NERVOUS SYSTEM: Awake and alert, generally weak, 64-year-old white male, on 6 L of oxygen. No focal deficits, tone is normal in all 4 extremities. - Labs CBC & Chem 7: 08/19/19 05:19 08/19/19 05:19 Labs: Abnormal Lab Results - Last 24 Hours (Table) 08/18/19 08/18/19 08/18/19 Range/Units 10:47 11:43 17:03 WBC (3.8-10.6) k/uL RBC (4.30-5.90) m/uL Hgb (13.0-17.5) gm/dL Hct (39.0-53.0) % RDW (11.5-15.5) % Plt Count (150-450) k/uL APTT 52.5 H (22.0-30.0) sec Sodium (137-145) mmol/L Potassium (3.5-5.1) mmol/L Chloride (98-107) mmol/L Creatinine (0.66-1.25) mg/dL POC Glucose (mg/dL) 124 H 106 H (75-99) mg/dL Calcium (8.4-10.2) mg/dL 08/18/19 08/19/19 08/19/19 Range/Units 23:31 05:19 05:19 WBC 11.9 H (3.8-10.6) k/uL RBC 2.95 L (4.30-5.90) m/uL Hgb 7.9 L (13.0-17.5) gm/dL Hct 24.8 L (39.0-53.0) % RDW 17.1 H (11.5-15.5) % Plt Count 518 H (150-450) k/uL APTT (22.0-30.0) sec Sodium 136 L (137-145) mmol/L Potassium 3.3 L (3.5-5.1) mmol/L Chloride 109 H (98-107) mmol/L Creatinine 0.54 L (0.66-1.25) mg/dL POC Glucose (mg/dL) 128 H (75-99) mg/dL Calcium 8.1 L (8.4-10.2) mg/dL 08/19/19 Range/Units 06:43 WBC (3.8-10.6) k/uL RBC (4.30-5.90) m/uL Hgb (13.0-17.5) gm/dL Hct (39.0-53.0) % RDW (11.5-15.5) % Plt Count (150-450) k/uL APTT (22.0-30.0) sec Sodium (137-145) mmol/L Potassium (3.5-5.1) mmol/L Chloride (98-107) mmol/L Creatinine (0.66-1.25) mg/dL POC Glucose (mg/dL) 107 H (75-99) mg/dL Calcium (8.4-10.2) mg/dL Microbiology - Last 24 Hours (Table) 08/15/19 11:00 Gram Stain - Final Sputum Sputum Culture - Final 08/16/19 09:27 Gram Stain - Final Bronchial Washings - Random Bronchial Washings Culture - Final Assessment and Plan Plan: Assessment: #1. Acute hypoxic and hypercapnic respiratory failure related to MSSA and E. coli pneumonia and sepsis, requiring intubation and mechanical ventilator support, successfully weaned and extubated on 08/16/2019. Patient had bronchoscopy with BAL on 08/16/2019 and so far the blood cultures are negative #2. Suspect aspiration pneumonia. #3. MSSA bacteremia #4. Acute kidney injury, improving. Secondary to acute sepsis. #5. Acute sepsis, and acute lactic acidosis on presentation, improved #6. Chronic psychiatric disorder/bipolar disorder. #7. Dyslipidemia. #8. Benign essential hypertension. #9. Shock liver, improved . #10. Acute rhabdomyolysis, resolved #11. Pulmonary hypertension. #12. Staph aureus septicemia, MSSA. #13. Hyperchloremic hypernatremia secondary to diarrhea and intravascular volume depletion. Improved with D5W. #14. Acute hepatic/metabolic encephalopathy, improved #15. Severe generalized weakness #16. Hypernatremia likely related to free water deficit Plan: Continue current antibiotics, continue oral Lasix, we will give the patient additional dose of IV Lasix 60 mg this morning, has developed worsening hypoxic respiratory failure requiring placement on BiPAP support currently with pressures of 12/5 and FiO2 of 50%. We'll and 5% dextrose and 50 ML per hour patient has developed hypernatremia, we'll recheck electrolytes and renal profile in the morning, maintain aspiration precautions, physical therapy consultation. We'll repeat chest x-ray in the morning. Prognosis is guarded. I performed a history & physical examination of the patient and discussed their management with my nurse practitioner, Radha Silva. I reviewed the nurse practitioner's note and agree with the documented findings and plan of care. Lung sounds are positive for diminished breath sounds. The findings and the impression was discussed with the patient. I attest to the documentation by the nurse practitioner. Time with Patient: Greater than 30
[2019-08-19] MEDS: DEXTROSE 5% IN WATER 1,000 ML IV SCH (09:53)
[2019-08-19 11:46] LABS: Glucose,Whole Blood 131 mg/dL (75-99)
[2019-08-19 12:03] LABS: Glucose,Whole Blood 123 mg/dL (75-99)
[2019-08-19] MEDS: HYDROmorphone 1 MG/ML 1 ML SYRINGE IVP PRN (15:28)
[2019-08-19] MEDS ORDERED: Potassium Replacement Protocol 1 EACH MISC MISCELLANE PRN (19:21)
--- NOTE | 2019-08-19 19:24 | PN ---
PROGRESS NOTE DATE OF SERVICE: 08/19/2019 REASON FOR FOLLOW UP: Aspiration pneumonia and bacteremia. INTERVAL HISTORY: The patient did have a low-grade fever of 99.8, this afternoon, the patient has been afebrile and otherwise the patient is hemodynamically stable, not on any pressor support, though did have worsening respiratory status with the patient placed on BiPAP. Currently denies having any chest pain. No abdominal pain or diarrhea. PHYSICAL EXAMINATION: Blood pressure 142/76, pulse of 71, temperature 98.8. He is 99% on high-flow oxygen. General description is a middle-aged male lying in bed in no distress. Respiratory system: Unlabored breathing, decreased breath sounds at the base. No wheeze. HEART: S1, S2. Regular rate and rhythm. Abdomen soft, no tenderness. LABS: Hemoglobin 7.2, white count 11.9, BUN of 19, creatinine 0.54. DIAGNOSTIC IMPRESSION AND PLAN: Patient with acute respiratory failure which is likely multifactorial. The patient did have a component of aspiration pneumonia. Sputum has been E. coli and MSSA, blood culture also positive for MSSA. Increasing bilateral infiltrate, possibly food related and the patient clinically responding to the diureses to continue along with Clindamycin and Cefazolin and monitor clinical course closely. MMODL / IJN: [id number] /
[2019-08-19] MEDS: POTASSIUM CHLORIDE 10 MEQ in WATER FOR INJECTION 1 100ML.BAG IVPB SCH ×4 (20:46→23:52)
[2019-08-19 23:30] LABS: Glucose,Whole Blood 102 mg/dL (75-99)
[2019-08-20] MEDS: INSULIN ASPART (NovoLOG) 100 UNIT/ML VIAL SQ SCH ×4 (00:22→17:56)
--- NOTE | 2019-08-20 00:50 | P.PN ---
Subjective Progress Note Date: 08/19/19 Principal diagnosis: Acute hypoxic and hypercapnic respiratory failure secondary to sepsis from a staphylococcal bacteremia possible COPD exacerbation Patient is admitted for acute hypoxic and hypercapnic respiratory failure which was believed to be secondary to Covid 19 pneumonia patient is presently on FiO2 of 60%. Patient does have related troponin by highly elevated be high d-dimer is of which patient is on anti-correlation dose of the Lovenox. Patient scored 19 is pending patient has chest x-ray findings consistent with the pulmonary edema or atypical pneumonia or Covid 19 pneumonia along with the significant transaminitis elevated highly elevated LDH highly elevated. Ferritin and significant lymphopenia ration continues to have fever. Patient also has acute renal failure secondary to possibly acute tubular necrosis patient is on sodium bicarbonate and D5 because of hyperkalemia. 08/07/2019 Patient the white blood cell count went up to 17,000. His blood cultures are positive for staph aureus we'll repeat the blood cultures tomorrow. Patient liver enzymes are elevated because of shock liver ultrasound did not show significant abnormality. Patient had an elevated ammonia yesterday which is actually better now after lactulose, patient is off pressors. Patient remains on amiodarone. Computed tomography scan of the brain did not show any signif icant abnormality patient Covid 19 is negative patient remains on cefepime and vancomycin. Primary source is probably lung. Patient has fairly good urine output at 400 mL per hour on volume control ventilation set up respiratory rate of 28 total volume of 450 PEEP of 15 episode of 50% patient's hypercapnic respiratory failure improved and hypoxic respiratory failure improved patient has pH of 7.36 pCO2 of 37 08/07/2028 patient doesn't have any significant clinical improvement remains bacteremic repeat blood cultures are being obtained for today and tomorrow as well. Patient has staph aureus in the blood patient probably will need the transesophageal echocardiogram. Patient is off sedation but is not arousable yet because of which neurology is evaluating the patient and patient is getting EEG patient remains on Vanco mycin cefepime was switched to Zosyn because of concern for aspiration patient aspirin cultures are positive for staph aureus and E. coli along with the species infectious disease is following the patient as well. 08/09/2019 She is still the remains is severely encephalopathic and it and the just withdrawing from painful stimuli off sedation for about 2 days. Patient has severe toxic and metabolic encephalopathy patient is mildly alkalotic patient's present tidal volume is 450 and set up respiratory rate was Down now and patient is breathing over the ventilator and is breathing at around 24/m on an average. FiO2 of 50% PEEP of 10. Patient liver enzymes are bit better patient remains on Zosyn and vancomycin probably vancomycin can be discontinued as patient has MSSA in the blood cultures. Infectious disease is following the patient. Patient white blood cell count remains high patient eventually will need a BRENDA to rule out endocarditis, will plan on this if he has some response on the antibiotics and less encephalopathic and if there is any improvement 08/10/2019 No significant change in his clinical condition including his mental status which it has not improved at patient is hyponatremic because of IV fluids patient is on D5 water now because of hypernatremia and hyperchloremia. Patient remains in the same vent settings as as today remains bacteremic prognosis is extremely poor. Tomorrow we'll discuss with the family regarding overall goals of care. Patient is presently not on pressor support serum creatinine remains stable patient is on amiodarone for atrial fibrillation patient will need repeat blood cultures again tomorrow patient is having thick secretions from the endotracheal to. Patient is presently on Zosyn and vancomycin, rifampin was added patient was started on daily. Because of elevated blood pressure by wool classer 08/11/2019 Independent improvement in his clinical status today daughter is awaiting evaluation by neurologist if patient remains severely encephalopathy Secondary. There is no chance of reasonable neurological recovery she wants to make him comfort care at that time. Patient remains on clevidipine. Patient last 2 blood cultures are negative. 08/11/2022 Patient is still on ventilator support patient the blood cultures are negative so far his bacteremia secondary to pneumonia. Patient is bit more responsive and response to 2 painful stimuli. White blood cell count started improving patient overall has some improvement has good urine output. 08/13/2019 Patient has significant improvement competitors. Patient is much more awake will undergo repeat cultures tomorrow 08/14/2019 Patient is bit more awake appears to have been improving patient will undergo weaning trial later today 08/15/2019 Patient is bit alkalotic today patient failed a weaning trial patient remains on ceftezole and then clindamycin. Patient is still having quite a few secretions now patient is on Alesse sedation patient respiratory than went has come down to 12 because of his respiratory alkalosis. 08/16/2019 patient is currently on mechanical ventilator.she underwent bronchoscopy and bronchoalveolar lavage today. Follow-up culture reports. Patient is arousable andfollow simple commands. Plan for weaning from ventilator today. Patient remains afebrile. Currently on heparin drip due to history of atrial fibrillation. currently on antibiotics the form of cefazolin and clindamycin. Laboratory data reviewed. Pulmonary is on board. 08/17/2019 Patient was successfully extubated yesterday. Currently on oxygen at 4 L via nasal cannula. Patient still drowsy but able to follow simple commands and open his eyes. Currently on Lasix and Diamox. Patient will be started on oral diet after bedside swallow evaluation. Patient is afebrile. Continued on antibiotics the form of cefazolin and clindamycinfor staph aureus bacteremia. Blood cultures have been negative so far. chest x-ray showed continued changes ofCHF. 08/18/2019 Patient is currently awake alert oriented x3. But lethargic and has been having generalized weakness likely due to myopathy. PT OT may be consulted. Patient was started on clear liquid diet will be advanced. Tolerating oral diet. Patient has been afebrile. Lasix was changed to by mouth as well. Chest x-ray today showed improving changes of pulmonary edema. Patient remained antibiotics in the form of cephalosporin and clindamycin. 08/19/2019 Patient is currently in the MICU. Awake alert and oriented. Currently on BiPAP machine. Feels generally weak and able to follow simple commands. Physical therapy is following. Chest no organisms. Increasing diffuse bilateral airspace disease likely due to pulmonary edema with persistent moderate pleural effusions. Patient is being continued Lasix 40 mg daily. bronchoalveolar lavage cultures negative so far. Initial sputum culture showed staph aureus, E. coli and [place]. Patient remain ed on antibiotics. Current medications reviewed. All inpatient medications were reviewed and appropriate changes in these medications as dictated in the interval history and assessment and plan. Objective - Vital Signs Vital signs: Vital Signs Temp 99.0 F 08/19/19 20:00 Pulse 70 08/19/19 21:26 Resp 17 08/19/19 21:00 BP 131/66 08/19/19 21:00 Pulse Ox 98 08/19/19 21:00 Intake & Output 08/19/19 08/19/19 08/20/19 06:59 18:59 06:59 Intake Total 1190 690 250 Output Total 585 2680 150 Balance 605 -1989 100 Weight 102.6 kg 102.6 kg Intake: IV 230 690 150 Clindamycin 600 mg In 50 100 Dextrose 5% in Water 50 ml @ 50 mls/hr IVPB Q8HR [facility] Rx#:[id number] Dextrose 5% in Water 1, 450 150 000 ml @ 50 mls/hr IV . Q20H [facility] Rx#:[id number] Sodium Chloride 0.9% 1, 130 40 000 ml @ 10 mls/hr IV . Q24H [facility] Rx#:[id number] ceFAZolin 2 gm In Sodium 50 100 Chloride 0.9% 50 ml @ 100 mls/hr IVPB Q8HR [facility] Rx# :[id number] Intake, IV Titration 100 Amount Potassium Chloride 10 meq 100 In Water For Injection 1 100ml.bag @ 100 mls/hr IVPB Q1HR [facility] Rx#: [id number] Oral 960 Output: Urine 585 2680 150 Other: Voiding Method Indwelling Catheter Indwelling Catheter Indwelling Catheter ABP, PAP, CO, CI - Last Documented Arterial Blood Pressure 151/56 - Exam PHYSICAL EXAMINATION: GENERAL: Patient is Awake alert and oriented x3. Generalized weakness and lethargy. HEENT: Pupils are round and equally reacting to light. EOMI. No scleral icterus. No conjunctival pallor. Normocephalic, atraumatic. No pharyngeal erythema. No thyromegaly. CARDIOVASCULAR: S1 and S2 present. No murmurs, rubs, or gallops. PULMONARY: Scattered rhonchi and crackles., no wheezing. ABDOMEN: Soft, nontender, nondistended, normoactive bowel sounds. No palpable organomegaly. MUSCULOSKELETAL: No joint swelling or deformity. EXTREMITIES: No cyanosis, clubbing, 1+pedal edema. NEUROLOGICAL: Gross neurological examination did not reveal any focal deficits. SKIN: No rashes. - Labs CBC & Chem 7: 08/19/19 05:19 08/19/19 05:19 Labs: Abnormal Lab Results - Last 24 Hours (Table) 08/18/19 08/19/19 08/19/19 Range/Units 23:31 05:19 05:19 WBC 11.9 H (3.8-10.6) k/uL RBC 2.95 L (4.30-5.90) m/uL Hgb 7.9 L (13.0-17.5) gm/dL Hct 24.8 L (39.0-53.0) % RDW 17.1 H (11.5-15.5) % Plt Count 518 H (150-450) k/uL Sodium 136 L (137-145) mmol/L Potassium 3.3 L (3.5-5.1) mmol/L Chloride 109 H (98-107) mmol/L Creatinine 0.54 L (0.66-1.25) mg/dL POC Glucose (mg/dL) 128 H (75-99) mg/dL Calcium 8.1 L (8.4-10.2) mg/dL 08/19/19 08/19/19 08/19/19 Range/Units 06:43 11:45 12:01 WBC (3.8-10.6) k/uL RBC (4.30-5.90) m/uL Hgb (13.0-17.5) gm/dL Hct (39.0-53.0) % RDW (11.5-15.5) % Plt Count (150-450) k/uL Sodium (137-145) mmol/L Potassium (3.5-5.1) mmol/L Chloride (98-107) mmol/L Creatinine (0.66-1.25) mg/dL POC Glucose (mg/dL) 107 H 131 H 123 H (75-99) mg/dL Calcium (8.4-10.2) mg/dL Microbiology - Last 24 Hours (Table) 08/15/19 11:00 Gram Stain - Final Sputum Sputum Culture - Final Assessment and Plan Assessment: Acute hypoxic and hypercapnic respiratory failure secondary to sepsis from a staphylococcal bacteremia possible COPD exacerbation. patient is currently extubated. -persistent bacteremia with MSSA. Patient patient was switched to cefazolin and clindamycin, which provides double coverage for MSSA and also covers aspiration pneumonia if any.repeat cultures have been negative. -Sepsis shock shock resolved . secondary to staphylococcal pneumonia, patient has persistent bacteremia. suspected aspiration pneumonia. - possible acute CHF with diastolic dysfunction -Severe toxic encephalopathy from sepsis and septic shock -Acute renal failure possibly acute tubular necrosis patient creatinine improved with IV fluids -Lactic acidosis secondary to sepsis Hypernatremia and hyperchloremia secondary to normal saline which was discontinued and patient received Lasix yesterday. -Hypertension -Hyperlipidemia next and heparin hypertension -Elevated liver enzymes probably secondary to shock liver. -Hepatic encephalopathy: Ammonia level is bit better now. -Troponin leak secondary to myocardial injury from sepsis. -Severe pulmonary hypertension . Time with Patient: Greater than 30
[2019-08-20] MEDS: CLINDAMYCIN 600 MG in DEXTROSE 5% IN WATER 50 ML IVPB SCH ×6 (01:01→17:56)
[2019-08-20] MEDS: DEXTROSE 5% IN WATER 1,000 ML IV SCH (05:16)
[2019-08-20 05:40] LABS: African American GFR (CKD) >90 (>60 ml/min/1.73 sqM); Anion Gap 6 mmol/L; Blood Urea Nitrogen 19 mg/dL (9-20); Carbon Dioxide 23 mmol/L (22-30); Chloride 105 mmol/L (98-107); Glucose 106 mg/dL (74-99); Non-African American GFR(CKD) >90 (>60 ml/min/1.73 sqM); Potassium 3.4 mmol/L (3.5-5.1); Sodium 134 mmol/L (137-145)
[2019-08-20 05:57] LABS: Anisocytosis Slight; Basophils % (A) 0 %; Eosinophils # (A) 0.1 k/uL (0-0.7); Eosinophils % (A) 1 %; HGB 8.4 gm/dL (13.0-17.5); Hypochromasia Slight; Lymphocytes % (A) 10 %; MCH 27.7 pg (25.0-35.0); MCHC 32.5 g/dL (31.0-37.0); MCV 85.2 fL (80.0-100.0); Mean Platelet Volume 7.9; Monocytes # (A) 0.6 k/uL (0-1.0); Monocytes % (A) 6 %; Neutrophils # (A) 8.2 k/uL (1.3-7.7); Neutrophils % (A) 82 %; Platelet Count 567 k/uL (150-450); RBC 3.05 m/uL (4.30-5.90); RDW 16.5 % (11.5-15.5)
[2019-08-20] MEDS: PANTOPRAZOLE 40 MG TABLET PO SCH (06:20)
[2019-08-20] MEDS: HYDROmorphone 1 MG/ML 1 ML SYRINGE IVP PRN ×2 (06:37→20:24)
[2019-08-20] MEDS ORDERED: Potassium Replacement Protocol 1 EACH MISC MISCELLANE PRN (06:42)
[2019-08-20] MEDS: IPRATROPIUM-ALBUTEROL 3 ML NEB INHALATION SCH ×4 (07:28→19:51)
--- NOTE | 2019-08-20 07:37 | XR ---
EXAMINATION TYPE: XR chest 1V portable DATE OF EXAM: 08/20/2019 HISTORY: Shortness of breath. COMPARISON: 08/19/2019 TECHNIQUE: Single view of the chest is submitted. FINDINGS: Persistent pulmonary venous congestion with scattered infiltrates and basilar effusions. Cardiomegaly also redemonstrated. Hilar and mediastinal structures are within normal limits. Degenerative changes are seen of the dorsal spine. IMPRESSION: 1. Stable features of congestive failure. Underlying infiltrates of other etiology not excluded. Cor relate clinically and progress studies are advised.
--- NOTE | 2019-08-20 08:55 | P.PN ---
Subjective Progress Note Date: 08/20/19 Principal diagnosis: Acute hypoxic and hypercapnic respiratory failure second to aspiration pneumonia 62-year-old male patient who was brought into the emergency department today unresponsive and profoundly hypoxic. The patient was in acute hypoxic respiratory failure. Initial pulse ox was in the mid 30s. Apparently he was not also communicating or responding. He was apparently awake and alert on the morning prior to him coming to the hospital according to the landlord. The landlord noted that the patient was appearing ill and called EMS. Upon EMS arrival, the patient was found to be obtunded. He had a fever of 10 1F. He was found to be hypoxic, brought into the emergency room he was found to be tachycardic and hypoxic with was placed on supplemental oxygen without any benefit and ultimately the patient was intubated and placed on a mechanical ventilator. COVID 19 is suspected. The patient was placed on the opposite isolation. The patient had the appropriate nasal swabs. Chest x-ray showed bilateral airspace disease consistent with pneumonia in addition to interstitial pneumonitis. ET tube was around 3.7 cm above the mario. NG tube was extending into the left abdomen. There was a right upper lobe consolidation noted and a tiny right-sided pleural effusion. No evidence of any pneumothorax. There was bilateral infiltrates and coarse interstitium and a prosthetic left shoulder. The patient has a white cell count of 4.9. He had some lymphopenia. His platelet counts is no within normal limits. The blood gases was done on 100% nonrebreather showed a pH of 7.17 with a pCO2 of 66 and pO2 of 45. The patient also had an acute kidney injury with a creatinine of 1.65. Epigastric level was at 3.1. The ALT is at 1106 with an ammonia level of 146 and a bilirubin of 0.5 and an albumin of 4.1. The serum alcohol was negative and the patient has negative salicylates and acetaminophen. Influenza screen has been negative. Covid 19 analysis still pending for now. This patient lives with a sister in a house and he collects Social Security disability. He has had issues with mental health and the patient has been dealing with bipolar disorder and chronic insomnia of many years duration. He has also chronic anxiety disorder. No history of any previous suicidal ideation or intent. No delusions or hallucinations based on recent psychiatric evaluation that was in the hospital. On today's evaluation of 62,020 the patient is being seen in follow-up in the intensive care unit. Noted the patient is intubated on a mechanical ventilator and is suspected to have Covid 19. He is afebrile on today's evaluation. He remains on a mechanical ventilator. He is sedated with propofol running at 20 mg per KG per minute. He was given a total of 5 L of IV fluid as the patient was hypotensive and currently the fluid is running at 75 mL an hour of normal saline. He remains on norepinephrine infusion at 0.08 mg per KG per minute. He remains on a mechanical ventilator. His assist-control mode at the rate of 28 with a tidal volume of 450 and FiO2 of 60% with a PEEP of 15. His blood gases showed a pH of 7.12 with a pCO2 of 58 and pO2 of 187. This was done and FiO2 of 100%. Otherwise, the patient has blood abnormalities it is consistent with Covid 19 infection. He has a rhabdomyolysis with a CPK level of 6114. He has also transaminitis with a AST of 3354, ALT of 1962, and his LDH level is at 8367. His creatinine is at 1.2, which is up from a baseline of 1.65 with fluid resuscitation. His current minute ventilation is 13 L. I made recommendations to keep the same vent setting. Based on the blood on of some non-anion gap metabolic acidosis, and with recommendations to start the patient on bicarb infusion and addition to 2 A of IV bicarb pushes. He was having temperatures throughout the night with temperature maximum 100.8. Current temperature is 99.6. He'll be started on enteral feeding for nutritional support. Covid 19 evaluation is still pending for now. On today's evaluation of 08/07/2019 and seeing this patient for a follow-up. The patient has sedated with propofol. He was given a sedation holiday yesterday and his neurologic exam was suboptimal as the patient did not show adequate neurologic recovery. Based on that, a CAT scan of the brain was done and the CAT scan of the brain was negative for any acute abnormalities. Noted the patient was profoundly hypoxic and at time of admission to the hospital and there is a suspicion for hypoxic encephalopathy. Contrary to my expectations, the patient checked negative for Covid 19 infection. The blood culture came back positive for staph aureus. Currently is on a combination of cefepime and vancomycin. The patient was resuscitated with more than 5 L of normal saline and the patient is also requiring some pressors for hemodynamic support and levo fed was started and 8 on was placed on hold as of 5:00 this morning. Urine output in the order of 40 mL an hour. In terms of sedation, the patient is on propofol at 20 g per KG per minute. Note that the patient had issues with a significant leak around his orotracheal tube. This was replaced yesterday by SENIOR NUCLEAR MEDICINE TECHNOLOGIST without any major difficulties. This morning, he remains on a VC plus mode with a rate of 28 and a tidal volume of 450 and a nighttime of 1 second with a PEEP of 15 with an FiO2 of 50%. Blood gases from today showed a pH of 7.36 with a pCO2 of 37 and pO2 of 92. Chest x-ray showing diffuse bilateral pulmonary infiltrates. His cardiac rhythm is still in atrial fibrillation. He is on amiodarone maintenance at 0.5 mg per minute. The patient has a creatinine of 1.5. There is still evidence of transaminitis with elevation of the AST and ALP and both are improving. LDH level is elevated at 5738. CPKs improving at 2431. C-reactive protein is elevated at 622. Note that the LDH is on the decline, CPKs on the decline on today's evaluation. LFTs are also improving. On 08/08/2019 on seeing this patient for a follow-up. The patient has been off sedation since yesterday. I am not seeing an adequate neurologic recovery in this patient. There may be a component of hepatic encephalopathy in the patient's went into shock liver. Nevertheless, his ammonia is dropping. He is on lactulose. He is producing adequate amount of bowel activity. He is undergoing training the painful stimulation. Pupils are about 3 mm in size and there is C-reactive to light. There is a very weak cough and a gag. Absolutely no response to deep painful stimulation. No seizure activity has been noted. Neurology will be consulted on the case. EEG will be ordered. Meanwhile, the patient is clearly becoming a case of possible aspiration staphylococcal pneumonia. His blood culture came back positive for staph aureus. His sputum positive for staph. He also has gram-negative bacillus in his sputum which turnaround engineer to be E. coli. For now, the cultures and the blood to be MSSA. The patient was on examination of cefepime and vancomycin. I dropped the cefepime and I u tilized Zosyn to give him better anaerobic coverage as the patient clearly has a history of aspiration. Meanwhile, the Covid test came back negative. The patient remains on a mechanical ventilator. On today's chest x-ray there is worsening over the bilateral pulmonary infiltrates worse on the right. ET tube remains in a good location. The patient remains on an assist-control mode at the rate of 18 with a tidal volume of 450 and FiO2 of 50% with a PEEP of 10. Blood gas showed a pH of 7.46 with a pCO2 of 34 and pO2 of 103. CVP is ranging between 12 and 14. He remains in atrial fibrillation. He is on amiodarone drip maintenance at 0.5 mg per minute. He is also on normal saline at the rate of 75 mL an hour. His age fibrillation is under better control and he is on no pressors. He can tolerate beta blockers. He is having low-grade fever still. The white cell count is up to 22. The shock liver is improving including the AST and ALP level. The LDH level was elevated. The CPKs also improving is down to 2431. His ammonia level is down to 85. His coagulation profile is within normal limits. On 08/09/2019 the patient is being seen in follow-up in intensive care unit. Unfortunately, the patient has been off sedation for more than 24 hours and the patient is still not showing significant neurologic recovery. The patient is not following any specific commands. In fact he is not even withdrawing to deep painful stimulation. No seizure activity has been noted. EEG was done and showed diffuse slowing and it was consistent with severe encephalopathy which could be toxic metabolic encephalopathy versus hypoxic encephalopathy. The patient will be kept off sedation. Meanwhile, the ammonia level is progressively coming down and is down to 58. He continues to have a week cough and gag reflex. The patient remains in atrial fibrillation. The patient remained on assist control mode of ventilation. He is on VC plus mode at the rate of 28 with a tidal volume of 450 and FiO2 of 50% with a PEEP of 10. The blood gases from today shows a component of respiratory alkalosis with a pH of 7.5 with a pCO2 of 36 and pO2 of 71. The white cell count of 23. The patient has developed some hyperchloremic hypernatremia in the sodium level is up to 147 with a chloride of 114. Renal function is stable. The patient is receiving vital high protein at the rate of 52 mL an hour. In terms of atrial fibrillation, I had utilized back the amiodarone drip at 0.5 mg per minute and the patient is also on metoprolol 50 mg by mouth 3 times a day. Heart rate is still slightly tachycardic and will continue the same regimen for now. The patient was given a dose of Lasix yesterday. The patient Is producing better urine output for now. His weight is still up. The CPKs down to 395. The AST is down to 1000. ALT is down to 58. LDH is down to 03/10/2007. Calcium level at 7.1. No other significant issues otherwise over the past 24 hours. He remains on a combination of Zosyn and vancomycin. The blood culture and the sputum culture was positive for MSSA. The sputum culture was positive for E. coli. The chest x-ray still showing rather consolidation worse on the right compared to the left. ET tube remains in a good location. On 08/10/2019 the patient has been approximately 72 hours of sedation. Unfortunately, we do not see any significant neurologic recovery the patient's condition. He is still not responding to any verbal or deep painful stimulation. He remains completely unresponsive. On this morning, I have a mild assist-control mode of ventilation with a VC plus mode at a tidal volume of 450 FiO2 of 50% with a PEEP of 10 and the respiratory rate of 24. His blood gases showed a component of respiratory alkalosis. His pH is at 7.53 with a pC O2 of 39 pO2 of 63. Chest x-ray still showing bilateral pneumonia bilateral airspace disease worse on the right along with cardiomegaly and bilateral pleural effusions. ET tube is in a good location. The patient's white cell count is at 27. The patient is still having episodes of fever. Most recent blood culture from 2 days ago was positive for MSSA and MSSA was also cultured and his lungs and it was cultured also E. coli in his lungs. We are still thinking that this was an aspiration pneumonia. Shock liver, his LFTs are nearly normalized, severe has also dropped and ammonia level is being monitored is still elevated at 83. The lactulose was held as the patient was having liquidy stool and the patient had become also hyperchloremic and the sodium level is up to 149. He is receiving free water supplements with NG for now. He is also on vital high protein. In terms of his atrial fibrillation, rate is under better control with a combination of amiodarone maintenance of 0.5 mg per minute and Cardizem drip at 10 mg an hour. The patient is also on IV heparin. The active issue for now is his altered mentation. On 08/11/2019, I'm seeing the patient for a follow-up in intensive care unit. His been off sedation for the past 92 hours. On today's evaluation that is some slight grimacing upon very deep painful stimulation and upon pinching on his upper chest. For the most part he remains unresponsive. No seizure activity. Shock liver has recovered. Ammonia level is on the decline. I started the patient on rifixamine 550 mg by mouth twice a day yesterday and ammonia level is down to 45. I suspect a component of hypoxic encephalopathy although the possibility of metabolic encephalopathy cannot be completely ruled out. He is on a mechanical ventilator. No change in the vent setting. No changes in the x-ray findings as the patient has extensive airspace disease bilaterally more so on the right lower lobe. On the ventilator, the patient is on a VC plus mode with a tidal volume of 450 and FiO2 of 50% with a PEEP of 10 and tidal volume of 450 with a rate of 16. The patient's blood gas showed a pH of 7.52 with a pCO2 of 39 and pO2 of 67. On and off he was still having fever yesterday. Repeat blood cultures were sent. He remains on examination Zosyn and vancomycin. He is tolerating his enteral feeding for nutritional support. Is on IV heparin drip regarding his atrial fibrillation. He remains on amiodarone drip and oral metoprolol for rate control. He is also started on Cleviprex which is running at 2 mg an hour for tighter blood pressure control. The active issue remains his altered mentation with a possibility of him having hypoxic encephalopathy with the details as mentioned above. Patient was reevaluated today on 08/12/19, remains on mechanical ventilation, his ventilator settings are assist control rate 16 volume control plus at 450 FiO2 at 50% and PEEP of 10. ABG showed a pO2 of 79 pCO2 of 39 pH of 7.52. Chest x- ray continues to show bilateral pleural effusions, and by basilar space disease, hence I recommended ultrasound to evaluate for possible thoracentesis if the effusion isn't large enough to be drained. However the ultrasound showed minimal pleural effusions bilaterally, insufficient for thoracentesis. Patient remains on Zosyn and vancomycin, and he hasn't MSSA bacteremia, sputum is positive for E. coli and staph aureus. Neurologically the patient is about the same, however the only change noted today is the fact that the patient tries to open his eyes and grimacing upon deep painful stimuli. Remains off narcotics and sedatives. WBC count is up to 25.3 today slightly improved compared to yesterday. Basic metabolic profile is basically normal and his BUN is improving down to 38 creatinine is 0.55. Liver enzymes are steadily improving. Ammonia is 60 today. It was as high as 146 about a week ago remains on rifaximin. Reevaluated today on, patient remains in the ICU, intubated and mechani raul ventilated. Yesterday the patient had significant agitation and he had to be placed back on propofol. This morning the propofol was discontinued, and the patient seems to be more responsive to stimuli/verbal stimuli patient is opening his eyes, wiggling his toes, seems to be slow but at least the best I have seen him so far. Hence I kept the propofol off, and I will give the patient a chance to go on a weaning trial if possible. He is not quite ready to start weaning but we will continue to hold propofol and address hourly today for possible placement on pressure support and CPAP. Presently the patient is on mechanical ventilation with assist control rate of 16, volume is 450 FiO2 dropped down from 60% to 50% and his PEEP was decreased to 8. His ABG this morning showed a pO2 of 124 pCO2 of 48 pH of 7.44 patient is on propofol which is presently on hold. He is on clindamycin and for his MSSA bacteremia. He is on enteral tube feeding. Chest x-ray continues to show small areas of pneumonia bilaterally, and possibly a small right sided pleural effusion not large enough to consider thoracentesis as noted on ultrasound On 08/14/2019 patient seen in follow-up, in the intensive care unit, he remains intubated, on mechanical ventilator, on assist control mode of ventilation with FiO2 of 50%. This morning blood gases showed pO2 of 112, pCO2 45, and pH of 7.48. IV 0.9 normal saline at a rate of 10 ML per hour, heparin per weight- based protocol, and Diprivan has been on hold. Patient is lethargic although she is waking up and follow commands, wiggling toes on command. Appears to be in no acute distress, today's chest x-ray has been reviewed showing diffuse pleural parenchymal changes consistent with pulmonary edema or ARDS. Patient continues on Kefzol and Clindamycin for MSSA and E. coli pneumonia and bacteremia, follow-up blood cultures have been negative. Patient has been afebrile, hemodynamically stable, not on any vasopressors, today's labs have been reviewed, leukocytosis is down trending, WBC is down to 18.7, hemoglobin is 9.7, sodium is 142, potassium is 3.3, chloride is 108, CO2 32, BUN is 37 and creatinine 0.53. Patient in sinus rhythm, he remains on oral amiodarone, and heparin infusion for anticoagulation. Diuretics with Lasix 40 mg every 12 hours On 08/19/2019 patient seen in follow-up in intensive care unit. Patient was successfully weaned and extubated on 08/16/2019, he is currently on 6 L of oxygen the pulse ox of 94%, afebrile, hemodynamically patient is stable, patient is on IV fluids 0.9 normal saline at a rate of 10 ML per hour, he is very generally weak, he can hardly move his fingers. Patient is awake, oriented to self and the place, he is following command. He denies any acute distress, lung sounds reveal scattered rhonchi bilaterally, patient is able to cough and expectorate yellowish colored phlegm at times. Physical therapy has been working with the patient however patient is extremely weak, and has only been able to sit in the chair position in bed. Upper and lower extremities are positive for 1+ edema, patient remains on daily dose of oral Lasix at 40 mg daily. He is in -150 ML fluid balance over the last 24 hours. We'll give the patient additional dose of IV Lasix 60 mg this morning, this morning patient is requiring increasing amount of oxygen, and he was placed on BiPAP with pressures of 12 and 5 and 50%. This morning's chest x-ray shows increasing diffuse bilateral airspace disease likely related to pulmonary edema with persistent moderate pleural effusions. Patient did have a bedside bronchoscopy with bronchoalveolar lavage on 08/16/2019, and Gram stain has shown no organisms. H is sputum culture from 08/05/2019 was positive for MSSA, and E. coli, and blood cultures from 08/05/2019, and 08/07/2019 were positive for MSSA. Patient is on clindamycin and For Antibiotic Coverage. He is currently in sinus rhythm, he is on Eliquis for paroxysmal atrial fibrillation and oral Cordarone. On 08/20/2019 patient seen in follow-up in intensive care unit, yesterday he required placement on BiPAP later to his increased dyspnea and hypoxia. He tolerated it well, this morning she is on 8 L per high flow nasal cannula with a pulse ox of 94-97%, mildly dyspneic with conversation, but no acute distress, BiPAP was removed at 2100 last night. Patient was given additional Lasix yester day, and he is in -1.2 L over the last 24 hours. Still has some 1+ pitting edema involving upper and lower extremities. Still is very weak, and unable to lift up his arms off the bed. Lung sounds reveal scattered rhonchi, but less congested on today's exam. he is on full liquid diet, but requires intensive assistance with ADLs including feeding. Physical therapy is on consult and is following with the patient. Low-grade fevers with a T-max 99.0F over the last 24 hours, hemodynamically stable, IV fluids included D5W at a rate of 50 MLS per hour. We will switch to 0.9 normal saline at a 20 ML per hour, patient is on oral Eliquis for paroxysmal atrial fibrillation, and currently remains in sinus rhythm. Remains on Diamox. Objective - Vital Signs Vital signs: Vital Signs Temp 98.9 F 08/20/19 04:00 Pulse 72 08/20/19 07:45 Resp 18 08/20/19 07:00 BP 142/75 08/20/19 07:00 Pulse Ox 97 08/20/19 07:00 Intake & Output 08/19/19 08/20/19 08/20/19 18:59 06:59 18:59 Intake Total 690 1340 50 Output Total 2680 535 40 Balance -1989 805 10 Weight 102.6 kg 99.7 kg Intake: IV 690 700 50 Clindamycin 600 mg In 100 50 Dextrose 5% in Water 50 ml @ 50 mls/hr IVPB Q8HR [facility] Rx#:[id number] Dextrose 5% in Water 1, 450 600 50 000 ml @ 50 mls/hr IV . Q20H [facility] Rx#:[id number] Sodium Chloride 0.9% 1, 40 000 ml @ 10 mls/hr IV . Q24H [facility] Rx#:[id number] ceFAZolin 2 gm In Sodium 100 50 Chloride 0.9% 50 ml @ 100 mls/hr IVPB Q8HR [facility] Rx# :[id number] Intake, IV Titration 400 Amount Potassium Chloride 10 meq 400 In Water For Injection 1 100ml.bag @ 100 mls/hr IVPB Q1HR [facility] Rx#: [id number] Oral 240 Output: Urine 2680 535 40 Other: Voiding Method Indwelling Catheter Indwelling Catheter ABP, PAP, CO, CI - Last Documented Arterial Blood Pressure 151/56 - Exam GENERAL EXAM: Awake and alert, oriented to self and place 64-year-old white male, on 8 L of oxygen and the pulse ox of 94%, extremely weak, his voice is weak, patient is answering questions appropriately, on command, but unable to li ft feet off the bed, and able to lift his head or his arms off the HEAD: Normocephalic/atraumatic. EYES: Normal reaction of pupils, equal size. Conjunctiva pink, sclera white. NOSE: Clear with pink turbinates. THROAT: No erythema or exudates. NECK: No masses, no JVD, no thyroid enlargement, no adenopathy. CHEST: No chest wall deformity. Symmetrical expansion. LUNGS: Equal air entry with no crackles, wheeze, rhonchi or dullness. CVS: Regular rate and rhythm, normal S1 and S2, no gallops, no murmurs, no rubs ABDOMEN: Soft, nontender. No hepatosplenomegaly, normal bowel sounds, no guarding or rigidity. EXTREMITIES: No clubbing, no edema, no cyanosis, 2+ pulses and upper and lower extremities. MUSCULOSKELETAL: Muscle strength and tone normal. SPINE: No scoliosis or deformity SKIN: No rashes CENTRAL NERVOUS SYSTEM: Awake and alert, generally weak, 64-year-old white male, on 8 L of oxygen. No focal deficits, tone is normal in all 4 extremities. - Labs CBC & Chem 7: 08/20/19 04:47 08/20/19 04:47 Labs: Abnormal Lab Results - Last 24 Hours (Table) 08/19/19 08/19/19 08/19/19 Range/Units 11:45 12:01 23:29 RBC (4.30-5.90) m/uL Hgb (13.0-17.5) gm/dL Hct (39.0-53.0) % RDW (11.5-15.5) % Plt Count (150-450) k/uL Neutrophils # (1.3-7.7) k/uL Sodium (137-145) mmol/L Potassium (3.5-5.1) mmol/L Creatinine (0.66-1.25) mg/dL Glucose (74-99) mg/dL POC Glucose (mg/dL) 131 H 123 H 102 H (75-99) mg/dL Calcium (8.4-10.2) mg/dL 08/20/19 08/20/19 Range/Units 04:47 04:47 RBC 3.05 L (4.30-5.90) m/uL Hgb 8.4 L (13.0-17.5) gm/dL Hct 26.0 L (39.0-53.0) % RDW 16.5 H (11.5-15.5) % Plt Count 567 H (150-450) k/uL Neutrophils # 8.2 H (1.3-7.7) k/uL Sodium 134 L (137-145) mmol/L Potassium 3.4 L (3.5-5.1) mmol/L Creatinine 0.57 L (0.66-1.25) mg/dL Glucose 106 H (74-99) mg/dL POC Glucose (mg/dL) (75-99) mg/dL Calcium 8.0 L (8.4-10.2) mg/dL Microbiology - Last 24 Hours (Table) 08/15/19 11:00 Gram Stain - Final Sputum Sputum Culture - Final Assessment and Plan Plan: Assessment: #1. Acute hypoxic and hypercapnic respiratory failure related to MSSA and E. coli pneumonia and sepsis, requiring intubation and mechanical ventilator support, successfully weaned and extubated on 08/16/2019. Patient had bronchoscopy with BAL on 08/16/2019 and so far the blood cultures are negative #2. Suspect aspiration pneumonia. #3. MSSA bacteremia #4. Acute kidney injury, improving. Secondary to acute sepsis. #5. Acute sepsis, and acute lactic acidosis on presentation, improved #6. Chronic psychiatric disorder/bipolar disorder. #7. Dyslipidemia. #8. Benign essential hypertension. #9. Shock liver, improved . #10. Acute rhabdomyolysis, resolved #11. Pulmonary hypertension. #12. Staph aureus septicemia, MSSA. #13. Hyperchloremic hypernatremia secondary to diarrhea and intravascular volume depletion. Improved with D5W. #14. Acute hepatic/metabolic encephalopathy, improved #15. Severe generalized weakness #16. Hypernatremia likely related to free water deficit, improved Plan: Maintain aspiration precautions, wean FiO2, may use BiPAP as needed and at bedtime and previous pressures of 12/5 and FiO2 of 50%, will give the patient additional dose of IV Lasix 60 mg times one, continue with maintenance dose of oral lasix, today's chest x-ray shows stable features of congestive heart failure with scattered infiltrates and basilar effusions. Encourage deep breathing and coughing, pulmonary toileting. Antibiotics per ID service recommendations. Physical therapy to Continue working with the patient, he is severely weak, and requires extensive assistance with all ADLs including feeding breathing and repositioning. We'll continue to closely monitor in the intensive care unit. I performed a history & physical examination of the patient and discussed their management with my nurse practitioner, Radha Silva. I reviewed the nurse practitioner's note and agree with the documented findings and plan of care. Lung sounds are positive for diminished breath sounds. The findings and the impression was discussed with the patient. I attest to the documentation by the nurse practitioner. Time with Patient: Less than 30
[2019-08-20] MEDS ORDERED: FUROSEMIDE 10 MG/ML 10 ML VIAL IV STA (09:08)
[2019-08-20] MEDS: POTASSIUM CHLORIDE ER 20 MEQ TAB.ER PO SCH ×2 (09:15→11:02)
[2019-08-20] MEDS: FUROSEMIDE 40 MG TAB PO SCH (09:15)
[2019-08-20] MEDS: APIXABAN 5 MG TAB PO SCH ×2 (09:15→20:24)
[2019-08-20] MEDS: ASPIRIN 81 MG PO SCH (09:15)
[2019-08-20] MEDS: AMIODARONE 200 MG TAB PO SCH ×2 (09:15→20:23)
[2019-08-20] MEDS: acetaZOLAMIDE 250 MG TAB PO SCH ×2 (09:16→20:24)
[2019-08-20] MEDS: METOPROLOL TARTRATE 50 MG TAB PO SCH ×3 (09:16→20:24)
[2019-08-20] MEDS: SODIUM CHLORIDE 0.9% 500 ML 500 ML IV SCH (11:04)
[2019-08-20 11:49] LABS: Glucose,Whole Blood 130 mg/dL (75-99)
--- NOTE | 2019-08-20 15:40 | PN ---
PROGRESS NOTE DATE OF SERVICE: 08/20/2019 REASON FOR FOLLOW UP: Pneumonia, aspiration pneumonia and bacteremia. INTERVAL HISTORY: The patient is currently afebrile, patient is breathing comfortably. Still requiring high-flow oxygen. Denies having any chest pain. Occasional cough. No abdominal pain, no diarrhea. PHYSICAL EXAMINATION: Blood pressure 130/74 with a pulse of 65, temperature 98.7. He is 96% on 8 L nasal cannula. General description is a middle-aged male, lying in bed in no distress. RESPIRATORY SYSTEM: Unlabored breathing, decreased breath sounds at the bases. No wheeze. HEART: S1, S2. Regular rate and rhythm. ABDOMEN: Soft, no tenderness. LABS: Hemoglobin 8.8, white count 10, BUN of 19, creatinine 0.57. Blood culture repeat has been negative. Bronch culture so far negative. DIAGNOSTIC IMPRESSION AND PLAN: Patient with MSSA bacteremia with a component of aspiration pneumonia. Follow-up blood culture has been negative. Patient is on cefazolin. Plan to continue. I will monitor clinical course closely. Continue supportive care. MMGUEVARAL / IJN: [id number] /
[2019-08-20] MEDS ORDERED: POTASSIUM CHLORIDE ER 20 MEQ TAB.ER PO SCH (17:00)
[2019-08-20 17:46] LABS: Glucose,Whole Blood 85 mg/dL (75-99)
[2019-08-21] MEDS: CLINDAMYCIN 600 MG in DEXTROSE 5% IN WATER 50 ML IVPB SCH ×6 (00:37→16:48)
[2019-08-21] MEDS: INSULIN ASPART (NovoLOG) 100 UNIT/ML VIAL SQ SCH ×4 (00:39→18:38)
[2019-08-21 00:40] LABS: Glucose,Whole Blood 113 mg/dL (75-99)
[2019-08-21 04:37] LABS: Anisocytosis Slight; Basophils % (A) 1 %; Eosinophils # (A) 0.1 k/uL (0-0.7); Eosinophils % (A) 1 %; HGB 8.3 gm/dL (13.0-17.5); Hypochromasia Moderate; Lymphocytes # (A) 1.1 k/uL (1.0-4.8); Lymphocytes % (A) 12 %; MCH 27.4 pg (25.0-35.0); MCV 85.7 fL (80.0-100.0); Mean Platelet Volume 7.4; Monocytes # (A) 0.4 k/uL (0-1.0); Monocytes % (A) 5 %; Neutrophils # (A) 7.1 k/uL (1.3-7.7); Neutrophils % (A) 80 %; Platelet Count 609 k/uL (150-450); RBC 3.04 m/uL (4.30-5.90); RDW 16.7 % (11.5-15.5); WBC 8.8 k/uL (3.8-10.6)
[2019-08-21] MEDS: CHLORHEXIDINE GLUCONATE 15 ML CUP MUCOUS MEM SCH (04:40)
[2019-08-21] MEDS: FUROSEMIDE 10 MG/ML 4 ML VIAL IV SCH (04:41)
[2019-08-21 04:59] LABS: African American GFR (CKD) >90 (>60 ml/min/1.73 sqM); Anion Gap 7 mmol/L; Blood Urea Nitrogen 22 mg/dL (9-20); Calcium 8.1 mg/dL (8.4-10.2); Carbon Dioxide 23 mmol/L (22-30); Chloride 103 mmol/L (98-107); Glucose 95 mg/dL (74-99); Non-African American GFR(CKD) >90 (>60 ml/min/1.73 sqM); Potassium 3.7 mmol/L (3.5-5.1); Sodium 133 mmol/L (137-145)
[2019-08-21 05:49] LABS: Glucose,Whole Blood 93 mg/dL (75-99)
[2019-08-21] MEDS ORDERED: POTASSIUM CHLORIDE ER 20 MEQ TAB.ER PO SCH (06:00)
[2019-08-21] MEDS: HYDROmorphone 1 MG/ML 1 ML SYRINGE IVP PRN ×3 (06:22→19:53)
[2019-08-21] MEDS: PANTOPRAZOLE 40 MG TABLET PO SCH (06:22)
[2019-08-21] MEDS ORDERED: FUROSEMIDE 10 MG/ML 4 ML VIAL IV STA (07:47)
--- NOTE | 2019-08-21 07:47 | P.PN ---
Subjective Progress Note Date: 08/21/19 Principal diagnosis: Acute hypoxic/hypercapnic respiratory failure secondary to MSSA and E. coli pneumonia and sepsis Patient is seen today 08/21/2019 in follow-up in the intensive care unit. He is currently sitting up in bed. Awake and alert in no acute distress. He is maint aining O2 saturations in the 90s on 5 L high flow nasal cannula. Currently off the BiPAP. Chest x-ray continues to show evidence of fluid volume overload. Bronchoscopy wash cultures revealed no growth. White count 8.8. Hemoglobin 8.3. Sodium 133. Potassium 3.7. Creatinine 0.56. Bicarb 23. He remains on bronchodilators, antibiotics in the form of clindamycin and cefazolin, oral diuretics, oral Diamox. Anticoagulated with Eliquis. Objective - Vital Signs Vital signs: Vital Signs Temp 97.9 F 08/21/19 04:00 Pulse 65 08/21/19 07:00 Resp 16 08/21/19 07:00 BP 144/78 08/21/19 07:00 Pulse Ox 93 L 08/21/19 07:00 Intake & Output 08/20/19 08/21/19 08/21/19 18:59 06:59 18:59 Intake Total 730 460 Output Total 1355 825 Balance -625 -365 Weight 99.2 kg Intake: IV 530 460 Clindamycin 600 mg In 100 100 Dextrose 5% in Water 50 ml @ 50 mls/hr IVPB Q8HR [facility] Rx#:[id number] Dextrose 5% in Water 1, 150 000 ml @ 50 mls/hr IV . Q20H [facility] Rx#:[id number] Sodium Chloride 0.9% 500 180 260 ml 500 ml @ 20 mls/hr IV .Q24H [facility] Rx#:[id number] ceFAZolin 2 gm In Sodium 100 100 Chloride 0.9% 50 ml @ 100 mls/hr IVPB Q8HR [facility] Rx# :[id number] Oral 200 Output: Urine 1355 825 Other: Voiding Method Indwelling Catheter Indwelling Catheter ABP, PAP, CO, CI - Last Documented Arterial Blood Pressure 151/56 - Exam GENERAL EXAM: Awake and alert, oriented to self and place 64-year-old male patient, on 5 L of oxygen and the pulse ox of 93%, extremely weak, his voice is weak, patient is answering questions appropriately, but unable to lift feet off the bed, and able to lift his head or his arms off the HEAD: Normocephalic/atraumatic. EYES: Normal reaction of pupils, equal size. Conjunctiva pink, sclera white. NOSE: Clear with pink turbinates. THROAT: No erythema or exudates. NECK: No masses, no JVD, no thyroid enlargement, no adenopathy. CHEST: No chest wall deformity. Symmetrical expansion. LUNGS: Equal air entry with crackles in the bilateral posterior bases CVS: Regular rate and rhythm, normal S1 and S2, no gallops, no murmurs, no rubs ABDOMEN: Soft, nontender. No hepatosplenomegaly, normal bowel sounds, no guarding or rigidity. EXTREMITIES: No clubbing, no edema, no cyanosis, 2+ pulses and upper and lower extremities. MUSCULOSKELETAL: Muscle strength and tone normal. SPINE: No scoliosis or deformity SKIN: No rashes CENTRAL NERVOUS SYSTEM: Awake and alert, generally weak, no focal deficits, tone is normal in all 4 extremities. - Labs CBC & Chem 7: 08/21/19 04:15 08/21/19 04:15 Labs: Abnormal Lab Results - Last 24 Hours (Table) 08/20/19 08/21/19 08/21/19 Range/Units 11:46 00:37 04:15 RBC 3.04 L (4.30-5.90) m/uL Hgb 8.3 L (13.0-17.5) gm/dL Hct 26.0 L (39.0-53.0) % RDW 16.7 H (11.5-15.5) % Plt Count 609 H (150-450) k/uL Sodium (137-145) mmol/L BUN (9-20) mg/dL Creatinine (0.66-1.25) mg/dL POC Glucose (mg/dL) 130 H 113 H (75-99) mg/dL Calcium (8.4-10.2) mg/dL 08/21/19 Range/Units 04:15 RBC (4.30-5.90) m/uL Hgb (13.0-17.5) gm/dL Hct (39.0-53.0) % RDW (11.5-15.5) % Plt Count (150-450) k/uL Sodium 133 L (137-145) mmol/L BUN 22 H (9-20) mg/dL Creatinine 0.56 L (0.66-1.25) mg/dL POC Glucose (mg/dL) (75-99) mg/dL Calcium 8.1 L (8.4-10.2) mg/dL Assessment and Plan Assessment: #1. Acute hypoxic/hypercapnic respiratory failure related to MSSA and E. coli pneumonia and sepsis, requiring intubation and mechanical ventilator support, successfully weaned and extubated on 08/16/2019. Patient had bronchoscopy with BAL on 08/16/2019 and so far the cultures are negative #2. Suspect aspiration pneumonia. #3. MSSA bacteremia #4. Acute kidney injury, improving. Secondary to acute sepsis. #5. Acute sepsis, and acute lactic acidosis on presentation, improved #6. Chronic psychiatric disorder/bipolar disorder. #7. Dyslipidemia. #8. Benign essential hypertension. #9. Shock liver, improved . #10. Acute rhabdomyolysis, resolved #11. Pulmonary hypertension. #12. Staph aureus septicemia, MSSA. #13. Hyperchloremic hypernatremia secondary to diarrhea and intravascular volume depletion. Improved with D5W. #14. Acute hepatic/metabolic encephalopathy, improved #15. Severe generalized weakness #16. Hypernatremia likely related to free water deficit, improved Plan: The patient was seen and evaluated by Dr. Crenshaw Chest x-ray and labs reviewed Give additional Lasix 40 mg IVP 1 Titrate down the FiO2 as tolerated Increase his activity as tolerated We will continue to follow make further recommendations based on his clinical status I, the cosigning physician, performed a history & physical examination of the patient. Lungs sounds with bilateral crackles in the posterior bases. Maintaining good O2 saturations in the 90s on 5L per minute per nasal canula. I discussed the assessment and plan of care with my nurse practitioner, Rochelle Galvan. I attest to the above note as dictated by her.
--- NOTE | 2019-08-21 07:56 | XR ---
EXAMINATION TYPE: XR chest 1V portable DATE OF EXAM: 08/21/2019 Comparison: 08/20/2019 Clinical History: 64-year-old male followup Findings: Partially visualized traversing left shoulder arthroplasty. Chronic fracture deformity at the distal left clavicle. Heart mildly enlarged. Increasing moderate right greater than left pleural effusions w ith underlying opacities. Impression: Increasing moderate right greater than left pleural effusions with adjacent atelectasis and/or consol idation.
[2019-08-21] MEDS: IPRATROPIUM-ALBUTEROL 3 ML NEB INHALATION SCH ×4 (08:18→19:18)
[2019-08-21] MEDS: METOPROLOL TARTRATE 50 MG TAB PO SCH ×3 (09:15→19:53)
[2019-08-21] MEDS: APIXABAN 5 MG TAB PO SCH ×2 (09:15→19:52)
[2019-08-21] MEDS: AMIODARONE 200 MG TAB PO SCH ×2 (09:15→19:52)
[2019-08-21] MEDS: ASPIRIN 81 MG PO SCH (09:15)
[2019-08-21] MEDS: acetaZOLAMIDE 250 MG TAB PO SCH ×2 (09:16→20:53)
[2019-08-21] MEDS: FUROSEMIDE 40 MG TAB PO SCH (09:17)
[2019-08-21 12:05] LABS: Glucose,Whole Blood 109 mg/dL (75-99)
[2019-08-21] MEDS: SODIUM CHLORIDE 0.9% 500 ML 500 ML IV SCH (16:49)
[2019-08-21 17:59] LABS: Glucose,Whole Blood 107 mg/dL (75-99)
--- NOTE | 2019-08-21 23:06 | PN ---
PROGRESS NOTE DATE OF SERVICE: 08/21/2019 REASON FOR FOLLOWUP: Aspiration pneumonia and bacteremia. INTERVAL HISTORY: The patient is currently afebrile. Th patient is breathing more comfortably. The patient denies having any chest pain or shortness of breath. Occasional cough. No nausea. No vomiting. No abdominal pain or diarrhea. PHYSICAL EXAMINATION: Blood pressure 132/80 with a pulse of 58, temperature 98. He is 97% on 4 L nasal cannula. General description is a middle-aged male up in the bed in no distress. RESPIRATORY SYSTEM: Unlabored breathing with decreased breath sounds at the base. No wheeze. HEART: S1, S2. Regular rate and rhythm. ABDOMEN: Soft. No tenderness. LABS: Hemoglobin 8.3, white count 8.8. BUN of 22, creatinine 0.56. DIAGNOSTIC IMPRESSION AND PLAN: Patient with methicillin-susceptible Staphylococcus aeruginosa bacteremia. Source is likely aspiration pneumonia. Follow-up blood culture from 08/09/2019 has been negative. We are planning for a total of 2 weeks from his negative blood culture. Clindamycin will be discontinued and clinical course will be monitored closely. MMODL / IJN: [id number] /
--- NOTE | 2019-08-22 01:47 | P.PN ---
Subjective Progress Note Date: 08/20/19 Principal diagnosis: Acute hypoxic and hypercapnic respiratory failure secondary to sepsis from a staphylococcal bacteremia possible COPD exacerbation Patient is admitted for acute hypoxic and hypercapnic respiratory failure which was believed to be secondary to Covid 19 pneumonia patient is presently on FiO2 of 60%. Patient does have related troponin by highly elevated be high d-dimer is of which patient is on anti-correlation dose of the Lovenox. Patient scored 19 is pending patient has chest x-ray findings consistent with the pulmonary edema or atypical pneumonia or Covid 19 pneumonia along with the significant transaminitis elevated highly elevated LDH highly elevated. Ferritin and significant lymphopenia ration continues to have fever. Patient also has acute renal failure secondary to possibly acute tubular necrosis patient is on sodium bicarbonate and D5 because of hyperkalemia. 08/07/2019 Patient the white blood cell count went up to 17,000. His blood cultures are positive for staph aureus we'll repeat the blood cultures tomorrow. Patient liver enzymes are elevated because of shock liver ultrasound did not show significant abnormality. Patient had an elevated ammonia yesterday which is actually better now after lactulose, patient is off pressors. Patient remains on amiodarone. Computed tomography scan of the brain did not show any signif icant abnormality patient Covid 19 is negative patient remains on cefepime and vancomycin. Primary source is probably lung. Patient has fairly good urine output at 400 mL per hour on volume control ventilation set up respiratory rate of 28 total volume of 450 PEEP of 15 episode of 50% patient's hypercapnic respiratory failure improved and hypoxic respiratory failure improved patient has pH of 7.36 pCO2 of 37 08/07/2028 patient doesn't have any significant clinical improvement remains bacteremic repeat blood cultures are being obtained for today and tomorrow as well. Patient has staph aureus in the blood patient probably will need the transesophageal echocardiogram. Patient is off sedation but is not arousable yet because of which neurology is evaluating the patient and patient is getting EEG patient remains on Vanco mycin cefepime was switched to Zosyn because of concern for aspiration patient aspirin cultures are positive for staph aureus and E. coli along with the species infectious disease is following the patient as well. 08/09/2019 She is still the remains is severely encephalopathic and it and the just withdrawing from painful stimuli off sedation for about 2 days. Patient has severe toxic and metabolic encephalopathy patient is mildly alkalotic patient's present tidal volume is 450 and set up respiratory rate was Down now and patient is breathing over the ventilator and is breathing at around 24/m on an average. FiO2 of 50% PEEP of 10. Patient liver enzymes are bit better patient remains on Zosyn and vancomycin probably vancomycin can be discontinued as patient has MSSA in the blood cultures. Infectious disease is following the patient. Patient white blood cell count remains high patient eventually will need a BRENDA to rule out endocarditis, will plan on this if he has some response on the antibiotics and less encephalopathic and if there is any improvement 08/10/2019 No significant change in his clinical condition including his mental status which it has not improved at patient is hyponatremic because of IV fluids patient is on D5 water now because of hypernatremia and hyperchloremia. Patient remains in the same vent settings as as today remains bacteremic prognosis is extremely poor. Tomorrow we'll discuss with the family regarding overall goals of care. Patient is presently not on pressor support serum creatinine remains stable patient is on amiodarone for atrial fibrillation patient will need repeat blood cultures again tomorrow patient is having thick secretions from the endotracheal to. Patient is presently on Zosyn and vancomycin, rifampin was added patient was started on daily. 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 There is no chance of reasonable neurological recovery she wants to make him comfort care at that time. Patient remains on clevidipine. Patient last 2 blood cultures are negative. 08/11/2022 Patient is still on ventilator support patient the blood cultures are negative so far his bacteremia secondary to pneumonia. Patient is bit more responsive and response to 2 painful stimuli. White blood cell count started improving patient overall has some improvement has good urine output. 08/13/2019 Patient has significant improvement competitors. Patient is much more awake will undergo repeat cultures tomorrow 08/14/2019 Patient is bit more awake appears to have been improving patient will undergo weaning trial later today 08/15/2019 Patient is bit alkalotic today patient failed a weaning trial patient remains on ceftezole and then clindamycin. Patient is still having quite a few secretions now patient is on Alesse sedation patient respiratory than went has come down to 12 because of his respiratory alkalosis. 08/16/2019 patient is currently on mechanical ventilator.she underwent bronchoscopy and bronchoalveolar lavage today. Follow-up culture reports. Patient is arousable andfollow simple commands. Plan for weaning from ventilator today. Patient remains afebrile. Currently on heparin drip due to history of atrial fibrillation. currently on antibiotics the form of cefazolin and clindamycin. Laboratory data reviewed. Pulmonary is on board. 08/17/2019 Patient was successfully extubated yesterday. Currently on oxygen at 4 L via nasal cannula. Patient still drowsy but able to follow simple commands and open his eyes. Currently on Lasix and Diamox. Patient will be started on oral diet after bedside swallow evaluation. Patient is afebrile. Continued on antibiotics the form of cefazolin and clindamycinfor staph aureus bacteremia. Blood cultures have been negative so far. chest x-ray showed continued changes ofCHF. 08/18/2019 Patient is currently awake alert oriented x3. But lethargic and has been having generalized weakness likely due to myopathy. PT OT may be consulted. Patient was started on clear liquid diet will be advanced. Tolerating oral diet. Patient has been afebrile. Lasix was changed to by mouth as well. Chest x-ray today showed improving changes of pulmonary edema. Patient remained antibiotics in the form of cephalosporin and clindamycin. 08/19/2019 Patient is currently in the MICU. Awake alert and oriented. Currently on BiPAP machine. Feels generally weak and able to follow simple commands. Physical therapy is following. Chest no organisms. Increasing diffuse bilateral airspace disease likely due to pulmonary edema with persistent moderate pleural effusions. Patient is being continued Lasix 40 mg daily. bronchoalveolar lavage cultures negative so far. Initial sputum culture showed staph aureus, E. coli and [place]. Patient remain ed on antibiotics. 08/20/2019 Patient is currently remained in the MICU. Currently on oxygen via nasal cannula. Was BiPAP yesterday. Patient still otherwise very weak and lethargic. Awake alert oriented x3 otherwise. Bilateral basilar crackles in the lung exam. Patient was given a dose of IV Lasix last night. PT OT is following. Still requiring 2 person assistance for ADLs. Patient is being continued antibiotics and breathing treatments. Pulmonary is following. Tolerating oral diet. Current medications reviewed. All inpatient medications were reviewed and appropriate changes in these medications as dictated in the interval history and assessment and plan. Objective - Vital Signs Vital signs: Vital Signs Temp 98.4 F 08/20/19 20:00 Pulse 64 08/20/19 21:00 Resp 17 08/20/19 21:00 BP 131/75 08/20/19 21:00 Pulse Ox 97 08/20/19 21:00 Intake & Output 08/20/19 08/20/19 08/21/19 06:59 18:59 06:59 Intake Total 1340 730 60 Output Total 535 1355 115 Balance 805 -625 -55 Weight 99.7 kg Intake: IV 700 530 60 Clindamycin 600 mg In 50 100 Dextrose 5% in Water 50 ml @ 50 mls/hr IVPB Q8HR [facility] Rx#:[id number] Dextrose 5% in Water 1, 600 150 000 ml @ 50 mls/hr IV . Q20H [facility] Rx#:[id number] Sodium Chloride 0.9% 500 180 60 ml 500 ml @ 20 mls/hr IV .Q24H [facility] Rx#:[id number] ceFAZolin 2 gm In Sodium 50 100 Chloride 0.9% 50 ml @ 100 mls/hr IVPB Q8HR [facility] Rx# :[id number] Intake, IV Titration 400 Amount Potassium Chloride 10 meq 400 In Water For Injection 1 100ml.bag @ 100 mls/hr IVPB Q1HR [facility] Rx#: [id number] Oral 240 200 Output: Urine 535 1355 115 Other: Voiding Method Indwelling Catheter Indwelling Catheter Indwelling Catheter ABP, PAP, CO, CI - Last Documented Arterial Blood Pressure 151/56 - Exam PHYSICAL EXAMINATION: GENERAL: Patient is Awake alert and oriented x3. Generalized weakness and lethargy. HEENT: Pupils are round and equally reacting to light. EOMI. No scleral icterus. No conjunctival pallor. Normocephalic, atraumatic. No pharyngeal erythema. No thyromegaly. CARDIOVASCULAR: S1 and S2 present. No murmurs, rubs, or gallops. PULMONARY: Scattered rhonchi and crackles., no wheezing. ABDOMEN: Soft, nontender, nondistended, normoactive bowel sounds. No palpable organomegaly. MUSCULOSKELETAL: No joint swelling or deformity. EXTREMITIES: No cyanosis, clubbing, 1+pedal edema. NEUROLOGICAL: Gross neurological examination did not reveal any focal deficits. SKIN: No rashes. - Labs CBC & Chem 7: 08/21/19 04:15 08/21/19 04:15 Labs: Abnormal Lab Results - Last 24 Hours (Table) 08/19/19 08/20/19 08/20/19 Range/Units 23:29 04:47 04:47 RBC 3.05 L (4.30-5.90) m/uL Hgb 8.4 L (13.0-17.5) gm/dL Hct 26.0 L (39.0-53.0) % RDW 16.5 H (11.5-15.5) % Plt Count 567 H (150-450) k/uL Neutrophils # 8.2 H (1.3-7.7) k/uL Sodium 134 L (137-145) mmol/L Potassium 3.4 L (3.5-5.1) mmol/L Creatinine 0.57 L (0.66-1.25) mg/dL Glucose 106 H (74-99) mg/dL POC Glucose (mg/dL) 102 H (75-99) mg/dL Calcium 8.0 L (8.4-10.2) mg/dL 08/20/19 Range/Units 11:46 RBC (4.30-5.90) m/uL Hgb (13.0-17.5) gm/dL Hct (39.0-53.0) % RDW (11.5-15.5) % Plt Count (150-450) k/uL Neutrophils # (1.3-7.7) k/uL Sodium (137-145) mmol/L Potassium (3.5-5.1) mmol/L Creatinine (0.66-1.25) mg/dL Glucose (74-99) mg/dL POC Glucose (mg/dL) 130 H (75-99) mg/dL Calcium (8.4-10.2) mg/dL Assessment and Plan Assessment: Acute hypoxic and hypercapnic respiratory failure secondary to sepsis from a staphylococcal bacteremia possible COPD exacerbation. patient is currently extubated. -persistent bacteremia with MSSA. Patient patient was switched to cefazolin and clindamycin, which provides double coverage for MSSA and also covers aspiration pneumonia if any.repeat cultures have been negative. -Sepsis shock shock resolved . secondary to staphylococcal pneumonia, patient has persistent bacteremia. suspected aspiration pneumonia. - possible acute CHF with diastolic dysfunction -Severe toxic encephalopathy from sepsis and septic shock -Acute renal failure possibly acute tubular necrosis patient creatinine improved with IV fluids -Lactic acidosis secondary to sepsis Hypernatremia and hyperchloremia secondary to normal saline which was discontinued and patient received Lasix yesterday. -Hypertension -Hyperlipidemia next and heparin hypertension -Elevated liver enzymes probably secondary to shock liver. -Hepatic encephalopathy: Ammonia level is bit better now. -Troponin leak secondary to myocardial injury from sepsis. -Severe pulmonary hypertension -Generalized weakness and fatigue likely due to myopathy. Time with Patient: Greater than 30
--- NOTE | 2019-08-22 01:49 | P.PN ---
Subjective Progress Note Date: 08/21/19 Principal diagnosis: Acute hypoxic and hypercapnic respiratory failure secondary to sepsis from a staphylococcal bacteremia possible COPD exacerbation Patient is admitted for acute hypoxic and hypercapnic respiratory failure which was believed to be secondary to Covid 19 pneumonia patient is presently on FiO2 of 60%. Patient does have related troponin by highly elevated be high d-dimer is of which patient is on anti-correlation dose of the Lovenox. Patient scored 19 is pending patient has chest x-ray findings consistent with the pulmonary edema or atypical pneumonia or Covid 19 pneumonia along with the significant transaminitis elevated highly elevated LDH highly elevated. Ferritin and significant lymphopenia ration continues to have fever. Patient also has acute renal failure secondary to possibly acute tubular necrosis patient is on sodium bicarbonate and D5 because of hyperkalemia. 08/07/2019 Patient the white blood cell count went up to 17,000. His blood cultures are positive for staph aureus we'll repeat the blood cultures tomorrow. Patient liver enzymes are elevated because of shock liver ultrasound did not show significant abnormality. Patient had an elevated ammonia yesterday which is actually better now after lactulose, patient is off pressors. Patient remains on amiodarone. Computed tomography scan of the brain did not show any signif icant abnormality patient Covid 19 is negative patient remains on cefepime and vancomycin. Primary source is probably lung. Patient has fairly good urine output at 400 mL per hour on volume control ventilation set up respiratory rate of 28 total volume of 450 PEEP of 15 episode of 50% patient's hypercapnic respiratory failure improved and hypoxic respiratory failure improved patient has pH of 7.36 pCO2 of 37 08/07/2028 patient doesn't have any significant clinical improvement remains bacteremic repeat blood cultures are being obtained for today and tomorrow as well. Patient has staph aureus in the blood patient probably will need the transesophageal echocardiogram. Patient is off sedation but is not arousable yet because of which neurology is evaluating the patient and patient is getting EEG patient remains on Vanco mycin cefepime was switched to Zosyn because of concern for aspiration patient aspirin cultures are positive for staph aureus and E. coli along with the species infectious disease is following the patient as well. 08/09/2019 She is still the remains is severely encephalopathic and it and the just withdrawing from painful stimuli off sedation for about 2 days. Patient has severe toxic and metabolic encephalopathy patient is mildly alkalotic patient's present tidal volume is 450 and set up respiratory rate was Down now and patient is breathing over the ventilator and is breathing at around 24/m on an average. FiO2 of 50% PEEP of 10. Patient liver enzymes are bit better patient remains on Zosyn and vancomycin probably vancomycin can be discontinued as patient has MSSA in the blood cultures. Infectious disease is following the patient. Patient white blood cell count remains high patient eventually will need a BRENDA to rule out endocarditis, will plan on this if he has some response on the antibiotics and less encephalopathic and if there is any improvement 08/10/2019 No significant change in his clinical condition including his mental status which it has not improved at patient is hyponatremic because of IV fluids patient is on D5 water now because of hypernatremia and hyperchloremia. Patient remains in the same vent settings as as today remains bacteremic prognosis is extremely poor. Tomorrow we'll discuss with the family regarding overall goals of care. Patient is presently not on pressor support serum creatinine remains stable patient is on amiodarone for atrial fibrillation patient will need repeat blood cultures again tomorrow patient is having thick secretions from the endotracheal to. Patient is presently on Zosyn and vancomycin, rifampin was added patient was started on daily. Because of elevated blood pressure by coding consultant 08/11/2019 Independent improvement in his clinical status today daughter is awaiting evaluation by neurologist if patient remains severely encephalopathy Secondary. There is no chance of reasonable neurological recovery she wants to make him comfort care at that time. Patient remains on clevidipine. Patient last 2 blood cultures are negative. 08/11/2022 Patient is still on ventilator support patient the blood cultures are negative so far his bacteremia secondary to pneumonia. Patient is bit more responsive and response to 2 painful stimuli. White blood cell count started improving patient overall has some improvement has good urine output. 08/13/2019 Patient has significant improvement competitors. Patient is much more awake will undergo repeat cultures tomorrow 08/14/2019 Patient is bit more awake appears to have been improving patient will undergo weaning trial later today 08/15/2019 Patient is bit alkalotic today patient failed a weaning trial patient remains on ceftezole and then clindamycin. Patient is still having quite a few secretions now patient is on Alesse sedation patient respiratory than went has come down to 12 because of his respiratory alkalosis. 08/16/2019 patient is currently on mechanical ventilator.she underwent bronchoscopy and bronchoalveolar lavage today. Follow-up culture reports. Patient is arousable andfollow simple commands. Plan for weaning from ventilator today. Patient remains afebrile. Currently on heparin drip due to history of atrial fibrillation. currently on antibiotics the form of cefazolin and clindamycin. Laboratory data reviewed. Pulmonary is on board. 08/17/2019 Patient was successfully extubated yesterday. Currently on oxygen at 4 L via nasal cannula. Patient still drowsy but able to follow simple commands and open his eyes. Currently on Lasix and Diamox. Patient will be started on oral diet after bedside swallow evaluation. Patient is afebrile. Continued on antibiotics the form of cefazolin and clindamycinfor staph aureus bacteremia. Blood cultures have been negative so far. chest x-ray showed continued changes ofCHF. 08/18/2019 Patient is currently awake alert oriented x3. But lethargic and has been having generalized weakness likely due to myopathy. PT OT may be consulted. Patient was started on clear liquid diet will be advanced. Tolerating oral diet. Patient has been afebrile. Lasix was changed to by mouth as well. Chest x-ray today showed improving changes of pulmonary edema. Patient remained antibiotics in the form of cephalosporin and clindamycin. 08/19/2019 Patient is currently in the MICU. Awake alert and oriented. Currently on BiPAP machine. Feels generally weak and able to follow simple commands. Physical therapy is following. Chest no organisms. Increasing diffuse bilateral airspace disease likely due to pulmonary edema with persistent moderate pleural effusions. Patient is being continued Lasix 40 mg daily. bronchoalveolar lavage cultures negative so far. Initial sputum culture showed staph aureus, E. coli and [place]. Patient remain ed on antibiotics. 08/20/2019 Patient is currently remained in the MICU. Currently on oxygen via nasal cannula. Was BiPAP yesterday. Patient still otherwise very weak and lethargic. Awake alert oriented x3 otherwise. Bilateral basilar crackles in the lung exam. Patient was given a dose of IV Lasix last night. PT OT is following. Still requiring 2 person assistance for ADLs. Patient is being continued antibiotics and breathing treatments. Pulmonary is following. Tolerating oral diet. 08/21/2019 Patient is currently in the intensive care unit. Lying in the bed comfortably. Awake alert oriented x3. No acute distress. Oxygen saturations in the 90s on 5 L via nasal cannula. Patient did not require BiPAP last night. Chest x-ray showed evidence of fluid overload. BAL fluid cultures showed no growth. Laboratory data showed BUN 22 and creatinine 0.56, hemoglobin 8.3 and sodium lev el 133. Calcium 8.1. Patient has been afebrile. Continued on PT OT. Otherwise patient is on antibiotic at home cefazolin and clindamycin. Anticoagulation with Eliquis. Pulmonary is following. Tolerating oral diet slowly. Current medications reviewed. All inpatient medications were reviewed and appropriate changes in these medications as dictated in the interval history and assessment and plan. Objective - Vital Signs Vital signs: Vital Signs Temp 98.0 F 08/21/19 20:00 Pulse 60 08/21/19 21:00 Resp 15 08/21/19 21:00 BP 138/75 08/21/19 21:00 Pulse Ox 96 08/21/19 21:00 Intake & Output 08/21/19 08/21/19 08/22/19 06:59 18:59 06:59 Intake Total 460 920 60 Output Total 825 1060 170 Balance -365 -140 -110 Weight 99.2 kg 99.2 kg Intake: IV 460 220 60 Clindamycin 600 mg In 100 Dextrose 5% in Water 50 ml @ 50 mls/hr IVPB Q8HR [facility] Rx#:[id number] Sodium Chloride 0.9% 500 260 220 60 ml 500 ml @ 20 mls/hr IV .Q24H [facility] Rx#:[id number] ceFAZolin 2 gm In Sodium 100 Chloride 0.9% 50 ml @ 100 mls/hr IVPB Q8HR [facility] Rx# :[id number] Oral 700 Output: Urine 825 1060 170 Other: Voiding Method Indwelling Catheter Indwelling Catheter Indwelling Catheter ABP, PAP, CO, CI - Last Documented Arterial Blood Pressure 151/56 - Exam PHYSICAL EXAMINATION: GENERAL: Patient is Awake alert and oriented x3. Generalized weakness and lethargy. HEENT: Pupils are round and equally reacting to light. EOMI. No scleral icterus. No conjunctival pallor. Normocephalic, atraumatic. No pharyngeal erythema. No thyromegaly. CARDIOVASCULAR: S1 and S2 present. No murmurs, rubs, or gallops. PULMONARY: Scattered rhonchi and crackles., no wheezing. ABDOMEN: Soft, nontender, nondistended, normoactive bowel sounds. No palpable organomegaly. MUSCULOSKELETAL: No joint swelling or deformity. EXTREMITIES: No cyanosis, clubbing, 1+pedal edema. NEUROLOGICAL: Gross neurological examination did not reveal any focal deficits. SKIN: No rashes. - Labs CBC & Chem 7: 08/21/19 04:15 08/21/19 04:15 Labs: Abnormal Lab Results - Last 24 Hours (Table) 08/21/19 08/21/19 08/21/19 Range/Units 00:37 04:15 04:15 RBC 3.04 L (4.30-5.90) m/uL Hgb 8.3 L (13.0-17.5) gm/dL Hct 26.0 L (39.0-53.0) % RDW 16.7 H (11.5-15.5) % Plt Count 609 H (150-450) k/uL Sodium 133 L (137-145) mmol/L BUN 22 H (9-20) mg/dL Creatinine 0.56 L (0.66-1.25) mg/dL POC Glucose (mg/dL) 113 H (75-99) mg/dL Calcium 8.1 L (8.4-10.2) mg/dL 08/21/19 08/21/19 Range/Units 12:03 17:57 RBC (4.30-5.90) m/uL Hgb (13.0-17.5) gm/dL Hct (39.0-53.0) % RDW (11.5-15.5) % Plt Count (150-450) k/uL Sodium (137-145) mmol/L BUN (9-20) mg/dL Creatinine (0.66-1.25) mg/dL POC Glucose (mg/dL) 109 H 107 H (75-99) mg/dL Calcium (8.4-10.2) mg/dL Assessment and Plan Assessment: Acute hypoxic and hypercapnic respiratory failure secondary to sepsis from a staphylococcal bacteremia possible COPD exacerbation. patient is currently extubated. -persistent bacteremia with MSSA. Patient patient was switched to cefazolin and clindamycin, which provides double coverage for MSSA and also covers aspiration pneumonia if any.repeat cultures have been negative. -Sepsis shock shock resolved . secondary to staphylococcal pneumonia, patient has persistent bacteremia. suspected aspiration pneumonia. - possible acute CHF with diastolic dysfunction -Severe toxic encephalopathy from sepsis and septic shock -Acute renal failure possibly acute tubular necrosis patient creatinine improved with IV fluids -Lactic acidosis secondary to sepsis Hypernatremia and hyperchloremia secondary to normal saline which was discontinued and patient received Lasix yesterday. -Hypertension -Hyperlipidemia next and heparin hypertension -Elevated liver enzymes probably secondary to shock liver. -Hepatic encephalopathy: Ammonia level is bit better now. -Troponin leak secondary to myocardial injury from sepsis. -Severe pulmonary hypertension -Generalized weakness and fatigue likely due to myopathy. Time with Patient: Greater than 30
[2019-08-22] MEDS: HYDROmorphone 1 MG/ML 1 ML SYRINGE IVP PRN ×4 (03:41→21:36)
[2019-08-22 05:14] LABS: Anisocytosis Slight; Basophils % (A) 0 %; Eosinophils # (A) 0.1 k/uL (0-0.7); Eosinophils % (A) 1 %; HCT 27.1 % (39.0-53.0); HGB 8.4 gm/dL (13.0-17.5); Hypochromasia Slight; Lymphocytes % (A) 11 %; MCH 26.3 pg (25.0-35.0); MCHC 31.1 g/dL (31.0-37.0); MCV 84.4 fL (80.0-100.0); Monocytes # (A) 0.4 k/uL (0-1.0); Monocytes % (A) 5 %; Neutrophils % (A) 81 %; Platelet Count 646 k/uL (150-450); RBC 3.21 m/uL (4.30-5.90); RDW 16.4 % (11.5-15.5); WBC 8.7 k/uL (3.8-10.6)
[2019-08-22 05:26] LABS: African American GFR (CKD) >90 (>60 ml/min/1.73 sqM); Anion Gap 6 mmol/L; Blood Urea Nitrogen 16 mg/dL (9-20); Calcium 8.3 mg/dL (8.4-10.2); Carbon Dioxide 23 mmol/L (22-30); Chloride 101 mmol/L (98-107); Glucose 96 mg/dL (74-99); Non-African American GFR(CKD) >90 (>60 ml/min/1.73 sqM); Potassium 3.5 mmol/L (3.5-5.1); Sodium 130 mmol/L (137-145)
--- NOTE | 2019-08-22 06:37 | XR ---
EXAMINATION TYPE: XR chest 1V portable DATE OF EXAM: 08/22/2019 CLINICAL HISTORY: Difficulty breathing progress study. TECHNIQUE: Single AP portable upright view of the chest is obtained. COMPARISON: Chest x-ray from one day earlier and older studies. FINDINGS: Persistent partial visualization of metallic hardware left shoulder level. Persistent card iomegaly and low lung volumes with central vascular congestion and bibasilar opacities. Upper lungs r emain clear without pneumothorax. Underlying levoconvex scoliosis in the upper lumbar spine partially imaged. IMPRESSION: Suspect CHF exacerbation as there is cardiomegaly with moderate central vascular congesti on and moderate sized bilateral pleural effusions. No significant change from one day earlier.
[2019-08-22] MEDS: PANTOPRAZOLE 40 MG TABLET PO SCH (06:51)
[2019-08-22] MEDS: POTASSIUM CHLORIDE ER 20 MEQ TAB.ER PO SCH ×2 (06:51→09:23)
[2019-08-22] MEDS: IPRATROPIUM-ALBUTEROL 3 ML NEB INHALATION SCH ×4 (07:45→19:31)
--- NOTE | 2019-08-22 09:02 | P.PN ---
Subjective Progress Note Date: 08/22/19 Principal diagnosis: Acute hypoxic/hypercapnic respiratory failure secondary to MSSA and E. coli pneumonia and sepsis The patient is seen today 08/22/2019 in follow-up in the intensive care unit. He is currently awake and alert in no acute distress. He is 0.9 normal saline at 20 miles per hour. He is maintaining O2 saturations in the 90s on 4 L/m per nasal cannula. Bronchial wash cultures revealed no growth. White count 8.7. Hemoglobin 8.4. Platelets 646. Sodium 130. Potassium 3.5. Creatinine 0.54. He remains on bronchodilators, oral Lasix, antibiotics in the form of cefazolin. Anticoagulated with Eliquis. Chest x-ray reveals evidence of fluid volume overload with moderate bilateral pleural effusions. No significant change compared to previous. Objective - Vital Signs Vital signs: Vital Signs Temp 98.2 F 08/22/19 04:00 Pulse 70 08/22/19 07:57 Resp 21 08/22/19 07:00 BP 152/79 08/22/19 07:00 Pulse Ox 95 08/22/19 07:00 Intake & Output 08/21/19 08/22/19 08/22/19 18:59 06:59 18:59 Intake Total 920 290 20 Output Total 1060 845 125 Balance -140 -555 -105 Weight 99.2 kg 97.4 kg Intake: IV 220 290 20 Sodium Chloride 0.9% 500 220 240 20 ml 500 ml @ 20 mls/hr IV .Q24H [facility] Rx#:[id number] ceFAZolin 2 gm In Sodium 50 Chloride 0.9% 50 ml @ 100 mls/hr IVPB Q8HR [facility] Rx# :[id number] Oral 700 Output: Urine 1060 845 125 Other: Voiding Method Indwelling Catheter Indwelling Catheter ABP, PAP, CO, CI - Last Documented Arterial Blood Pressure 151/56 - Exam GENERAL EXAM: Awake and alert, oriented to self and place 64-year-old male patient, on 4 L of oxygen and the pulse ox of 95%, extremely weak, his voice is weak, patient is answering questions appropriately, but unable to lift feet off the bed, and unable to lift or his arms very far off the bed HEAD: Normocephalic/atraumatic. EYES: Normal reaction of pupils, equal size. Conjunctiva pink, sclera white. NOSE: Clear with pink turbinates. THROAT: No erythema or exudates. NECK: No masses, no JVD, no thyroid enlargement, no adenopathy. CHEST: No chest wall deformity. Symmetrical expansion. LUNGS: Equal air entry with crackles in the bilateral posterior bases CVS: Regular rate and rhythm, normal S1 and S2, no gallops, no murmurs, no rubs ABDOMEN: Soft, nontender. No hepatosplenomegaly, normal bowel sounds, no guarding or rigidity. EXTREMITIES: No clubbing, no edema, no cyanosis, 2+ pulses and upper and lower extremities. MUSCULOSKELETAL: Muscle strength and tone normal. SPINE: No scoliosis or deformity SKIN: No rashes CENTRAL NERVOUS SYSTEM: Awake and alert, generally weak, no focal deficits, tone is normal in all 4 extremities. - Labs CBC & Chem 7: 08/22/19 04:58 08/22/19 04:58 Labs: Abnormal Lab Results - Last 24 Hours (Table) 08/21/19 08/21/19 08/22/19 Range/Units 12:03 17:57 04:58 RBC 3.21 L (4.30-5.90) m/uL Hgb 8.4 L (13.0-17.5) gm/dL Hct 27.1 L (39.0-53.0) % RDW 16.4 H (11.5-15.5) % Plt Count 646 H (150-450) k/uL Sodium (137-145) mmol/L Creatinine (0.66-1.25) mg/dL POC Glucose (mg/dL) 109 H 107 H (75-99) mg/dL Calcium (8.4-10.2) mg/dL 08/22/19 Range/Units 04:58 RBC (4.30-5.90) m/uL Hgb (13.0-17.5) gm/dL Hct (39.0-53.0) % RDW (11.5-15.5) % Plt Count (150-450) k/uL Sodium 130 L (137-145) mmol/L Creatinine 0.54 L (0.66-1.25) mg/dL POC Glucose (mg/dL) (75-99) mg/dL Calcium 8.3 L (8.4-10.2) mg/dL Assessment and Plan Assessment: #1. Acute hypoxic/hypercapnic respiratory failure related to MSSA and E. coli pneumonia and sepsis, requiring intubation and mechanical ventilator support, successfully weaned and extubated on 08/16/2019. Patient had bronchoscopy with BAL on 08/16/2019 and so far the cultures are negative. Chest x-ray continues to show evidence of bilateral pleural effusions and fluid volume overload #2. Suspect aspiration pneumonia. #3. MSSA bacteremia #4. Acute kidney injury, improving. Secondary to acute sepsis. #5. Acute sepsis, and acute lactic acidosis on presentation, improved #6. Chronic psychiatric disorder/bipolar disorder. #7. Dyslipidemia. #8. Benign essential hypertension. #9. Shock liver, improved . #10. Acute rhabdomyolysis, resolved #11. Pulmonary hypertension. #12. Staph aureus septicemia, MSSA. #13. Hyperchloremic hypernatremia secondary to diarrhea and intravascular volume depletion. Improved with D5W. #14. Acute hepatic/metabolic encephalopathy, improved #15. Severe generalized weakness, critical illness polyneuropathy #16. Hypernatremia likely related to free water deficit, improved Plan: The patient was seen and evaluated by Dr. Crenshaw Chest x-ray and labs reviewed Give additional Lasix 40 mg IVP Q 12 hours Discontinue Diamox Titrate down the FiO2 as tolerated Increase his activity as tolerated We will continue to follow and make further recommendations based on his clinical status I, the cosigning physician, performed a history & physical examination of the patient. Lungs sounds with bilateral crackles in the posterior bases. Maintaining good O2 saturations in the 90s on 4L per minute per nasal canula. I discussed the assessment and plan of care with my nurse practitioner, Rochelle Galvan. I attest to the above note as dictated by her.
[2019-08-22] MEDS: ASPIRIN 81 MG PO SCH (09:22)
[2019-08-22] MEDS: APIXABAN 5 MG TAB PO SCH ×2 (09:22→21:18)
[2019-08-22] MEDS: METOPROLOL TARTRATE 50 MG TAB PO SCH ×3 (09:22→22:45)
[2019-08-22] MEDS: AMIODARONE 200 MG TAB PO SCH ×2 (09:22→21:17)
[2019-08-22] MEDS: FUROSEMIDE 10 MG/ML 4 ML VIAL IV SCH ×2 (09:24→21:18)
[2019-08-22] MEDS: SODIUM CHLORIDE 0.9% 500 ML 500 ML IV SCH (09:24)
[2019-08-22 11:58] LABS: Glucose,Whole Blood 103 mg/dL (75-99)
[2019-08-22] MEDS: oxyCODONE-APAP 5-325MG 1 EACH TAB PO PRN (19:28)
--- NOTE | 2019-08-22 23:25 | PN ---
PROGRESS NOTE DATE OF SERVICE: 08/22/2019 REASON FOR FOLLOWUP: Aspiration pneumonia and MSSA bacteremia. INTERVAL HISTORY: The patient is currently afebrile. The patient is breathing comfortably. The patient denies having any chest pain. Occasional cough. No nausea, no vomiting. No abdominal pain or diarrhea. PHYSICAL EXAMINATION: Blood pressure 130/74 with a pulse of 57, temperature 99.1. He is 94% on 4 L nasal cannula. General description is a middle-aged male lying in bed in no distress. RESPIRATORY SYSTEM: Unlabored breathing. Clear to auscultation anteriorly. HEART: S1, S2. Regular rate and rhythm. ABDOMEN: Soft. No tenderness. LABS: Hemoglobin 8.4, white count 8.7, BUN of 16, creatinine 0.54. DIAGNOSTIC IMPRESSION AND PLAN: Patient with methicillin-susceptible Staphylococcus aeruginosa bacteremia. Source is likely aspiration pneumonia. Sputum is also positive for E coli. The patient's blood culture from 08/09/2019 has been negative, pending for a total of 2 weeks from his negative blood culture. Cefazolin to continue. Monitor his clinical course closely. MMODL / IJN: [id number] /
[2019-08-23] MEDS: oxyCODONE-APAP 5-325MG 1 EACH TAB PO PRN ×4 (01:58→20:58)
[2019-08-23] MEDS: HYDROmorphone 1 MG/ML 1 ML SYRINGE IVP PRN ×3 (05:39→20:59)
[2019-08-23 05:56] LABS: Anisocytosis Slight; HCT 27.5 % (39.0-53.0); HGB 8.6 gm/dL (13.0-17.5); Hypochromasia Slight; MCH 26.2 pg (25.0-35.0); MCHC 31.4 g/dL (31.0-37.0); MCV 83.7 fL (80.0-100.0); Mean Platelet Volume 6.8; Platelet Count 613 k/uL (150-450); RBC 3.29 m/uL (4.30-5.90); RDW 16.4 % (11.5-15.5); WBC 8.6 k/uL (3.8-10.6)
[2019-08-23 06:08] LABS: African American GFR (CKD) >90 (>60 ml/min/1.73 sqM); Anion Gap 6 mmol/L; Blood Urea Nitrogen 14 mg/dL (9-20); Calcium 8.6 mg/dL (8.4-10.2); Carbon Dioxide 27 mmol/L (22-30); Chloride 99 mmol/L (98-107); Glucose 94 mg/dL (74-99); Non-African American GFR(CKD) >90 (>60 ml/min/1.73 sqM); Potassium 3.6 mmol/L (3.5-5.1); Sodium 132 mmol/L (137-145)
[2019-08-23] MEDS ORDERED: POTASSIUM BICARBONATE/CIT AC 20 MEQ TABLET.EFF NG-TUBE SCH (07:00)
[2019-08-23] MEDS: PANTOPRAZOLE 40 MG TABLET PO SCH (07:12)
--- NOTE | 2019-08-23 07:40 | XR ---
EXAMINATION TYPE: XR chest 1V portable DATE OF EXAM: 08/23/2019 COMPARISON: 08/22/2019 INDICATION: Short of breath TECHNIQUE: Single frontal view of the chest is obtained. FINDINGS: The heart size is normal. The pulmonary vasculature is normal. Small bilateral pleural effusions are present. These are slightly greater on the right left. No pneu mothorax is evident. Patient's left-sided rib fractures poorly visualized on the current exam. IMPRESSION: 1. Bilateral pleural effusions greater on the right. 2. Left sixth rib fracture less well visualized on exam. 3. Findings are stable from comparison.
[2019-08-23] MEDS: IPRATROPIUM-ALBUTEROL 3 ML NEB INHALATION SCH ×4 (08:28→19:16)
--- NOTE | 2019-08-23 08:34 | P.PN ---
Subjective Progress Note Date: 08/23/19 Principal diagnosis: Acute hypoxic/hypercapnic respiratory failure secondary to MSSA and E. coli pneumonia and sepsis The patient is seen today 08/23/2019 in follow-up in the intensive care unit. He is currently resting comfortably in bed. Awake and alert in no acute distress. He is still requiring 4 L high flow nasal cannula to maintain O2 saturations in the 90s. Today's chest x-ray shows slight improvement though still evidence of fluid volume overload. He's been afebrile. Hemodynamically stable. 0.9 normal saline at 20 ML's per hour. Tolerating his diet. White count 8.6. Hemoglobin 8.6. Sodium 132. Potassium 3.6. Creatinine 0.55. He remains on IV diuretics, bronchodilators, cefazolin and anticoagulated with Eliquis. Objective - Vital Signs Vital signs: Vital Signs Temp 98.1 F 08/23/19 08:00 Pulse 69 08/23/19 08:00 Resp 25 H 08/23/19 08:00 BP 150/84 08/23/19 08:00 Pulse Ox 92 L 08/23/19 08:00 Intake & Output 08/22/19 08/23/19 08/23/19 18:59 06:59 18:59 Intake Total 692 410 220 Output Total 1894 1894 70 Balance -1203 -1485 150 Weight 94.9 kg Intake: IV 270 310 20 Sodium Chloride 0.9% 500 220 260 20 ml 500 ml @ 20 mls/hr IV .Q24H [facility] Rx#:[id number] ceFAZolin 2 gm In Sodium 50 50 Chloride 0.9% 50 ml @ 100 mls/hr IVPB Q8HR [facility] Rx# :[id number] Oral 422 100 200 Output: Urine 1894 1894 70 Other: Voiding Method Indwelling Catheter Indwelling Catheter Indwelling Catheter ABP, PAP, CO, CI - Last Documented Arterial Blood Pressure 151/56 - Exam GENERAL EXAM: Awake and alert, pleasant 64-year-old male patient, on 4 L of oxygen and the pulse ox of 92%, extremely weak, unable to lift feet off the bed, and unable to lift or his arms very far off the bed HEAD: Normocephalic/atraumatic. EYES: Normal reaction of pupils, equal size. Conjunctiva pink, sclera white. NOSE: Clear with pink turbinates. THROAT: No erythema or exudates. NECK: No masses, no JVD, no thyroid enlargement, no adenopathy. CHEST: No chest wall deformity. Symmetrical expansion. LUNGS: Equal air entry with crackles in the bilateral posterior bases CVS: Regular rate and rhythm, normal S1 and S2, no gallops, no murmurs, no rubs ABDOMEN: Soft, nontender. No hepatosplenomegaly, normal bowel sounds, no guarding or rigidity. EXTREMITIES: No clubbing, no edema, no cyanosis, 2+ pulses and upper and lower extremities. MUSCULOSKELETAL: Muscle strength and tone normal. SPINE: No scoliosis or deformity SKIN: No rashes CENTRAL NERVOUS SYSTEM: Awake and alert, generally weak, no focal deficits, tone is normal in all 4 extremities. - Labs CBC & Chem 7: 08/23/19 05:30 08/23/19 05:30 Labs: Abnormal Lab Results - Last 24 Hours (Table) 08/22/19 08/23/19 08/23/19 Range/Units 11:55 05:30 05:30 RBC 3.29 L (4.30-5.90) m/uL Hgb 8.6 L (13.0-17.5) gm/dL Hct 27.5 L (39.0-53.0) % RDW 16.4 H (11.5-15.5) % Plt Count 613 H (150-450) k/uL Sodium 132 L (137-145) mmol/L Creatinine 0.55 L (0.66-1.25) mg/dL POC Glucose (mg/dL) 103 H (75-99) mg/dL Assessment and Plan Assessment: #1. Acute hypoxic/hypercapnic respiratory failure related to MSSA and E. coli pneumonia and sepsis, requiring intubation and mechanical ventilator support, successfully weaned and extubated on 08/16/2019. Patient had bronchoscopy with BAL on 08/16/2019 and so far the cultures are negative. Chest x-ray continues to show evidence of bilateral pleural effusions and fluid volume overload #2. Suspect aspiration pneumonia. #3. MSSA bacteremia #4. Acute kidney injury, improving. Secondary to acute sepsis. #5. Acute sepsis, and acute lactic acidosis on presentation, improved #6. Chronic psychiatric disorder/bipolar disorder. #7. Dyslipidemia. #8. Benign essential hypertension. #9. Shock liver, improved . #10. Acute rhabdomyolysis, resolved #11. Pulmonary hypertension. #12. Staph aureus septicemia, MSSA. #13. Hyperchloremic hypernatremia secondary to diarrhea and intravascular volume depletion. Improved with D5W. #14. Acute hepatic/metabolic encephalopathy, improved #15. Severe generalized weakness, critical illness polyneuropathy #16. Hypernatremia likely related to free water deficit, improved Plan: The patient was seen and evaluated by Dr. Crenshaw Chest x-ray and labs reviewed Continue IV diuretics Titrate down the FiO2 as tolerated Increase his activity as tolerated He could be transferred to the general medical floor with telemetry We will continue to follow and make further recommendations based on his clinical status I, the cosigning physician, performed a history & physical examination of the patient. Lungs sounds with bilateral crackles in the posterior bases. Maintaining good O2 saturations in the 90s on 4L per minute per nasal canula. I discussed the assessment and plan of care with my nurse practitioner, Rochelle Galvan. I attest to the above note as dictated by her.
[2019-08-23] MEDS: ASPIRIN 81 MG PO SCH (08:37)
[2019-08-23] MEDS: APIXABAN 5 MG TAB PO SCH ×2 (08:37→20:58)
[2019-08-23] MEDS: AMIODARONE 200 MG TAB PO SCH ×2 (08:38→20:58)
[2019-08-23] MEDS: METOPROLOL TARTRATE 50 MG TAB PO SCH ×3 (08:38→20:58)
[2019-08-23] MEDS: FUROSEMIDE 10 MG/ML 4 ML VIAL IV SCH ×2 (08:38→20:58)
[2019-08-23] MEDS: SODIUM CHLORIDE 0.9% 500 ML 500 ML IV SCH (08:39)
[2019-08-23] MEDS: bisacodyL 5 MG TABLET.DR PO PRN (16:03)
--- NOTE | 2019-08-23 22:56 | PN ---
PROGRESS NOTE DATE OF SERVICE: 08/23/2019 REASON FOR FOLLOWUP: MSSA bacteremia and aspiration pneumonia. INTERVAL HISTORY: The patient is currently afebrile, has been breathing comfortably. He mentioned feeling not as great today, feeling weak and tired. No chest pain, shortness of breath or cough. No abdominal pain or diarrhea. PHYSICAL EXAMINATION: Blood pressure 142/82 with a pulse of 65, temperature 98.1. He is 95% on 4 L nasal cannula. General description is a middle-aged male up in the bed in no distress. RESPIRATORY SYSTEM: Unlabored breathing with decreased breath sounds at the base. No wheeze. HEART: S1, S2. Regular rate and rhythm. ABDOMEN: Soft. No tenderness. LABS: Hemoglobin 8.6, white count 8.6, BUN of 14, creatinine 0.55. DIAGNOSTIC IMPRESSION AND PLAN: Patient with methicillin-susceptible Staphylococcus aeruginosa bacteremia. Source is likely aspiration pneumonia. Follow-up blood culture has been negative. The patient is currently maintained on cefazolin 2 grams q.8 hours; to finish his total 2-week course of therapy and monitor his clinical course closely. Continue with supportive care. MMODL / IJN: [id number] /
[2019-08-23 23:58] LABS: Glucose,Whole Blood 105 mg/dL (75-99)
[2019-08-24] MEDS: oxyCODONE-APAP 5-325MG 1 EACH TAB PO PRN ×3 (03:10→20:42)
[2019-08-24 05:11] LABS: Anisocytosis Slight; Basophils % (A) 0 %; Eosinophils % (A) 1 %; HGB 8.4 gm/dL (13.0-17.5); Hypochromasia Slight; Lymphocytes # (A) 0.9 k/uL (1.0-4.8); Lymphocytes % (A) 10 %; MCH 25.8 pg (25.0-35.0); MCV 83.4 fL (80.0-100.0); Mean Platelet Volume 6.8; Monocytes # (A) 0.6 k/uL (0-1.0); Monocytes % (A) 7 %; Neutrophils % (A) 80 %; Platelet Count 531 k/uL (150-450); RBC 3.24 m/uL (4.30-5.90); RDW 16.1 % (11.5-15.5); WBC 8.7 k/uL (3.8-10.6)
[2019-08-24 05:19] LABS: African American GFR (CKD) >90 (>60 ml/min/1.73 sqM); Anion Gap 7 mmol/L; Blood Urea Nitrogen 13 mg/dL (9-20); Calcium 8.2 mg/dL (8.4-10.2); Carbon Dioxide 27 mmol/L (22-30); Chloride 96 mmol/L (98-107); Glucose 94 mg/dL (74-99); Non-African American GFR(CKD) >90 (>60 ml/min/1.73 sqM); Potassium 3.3 mmol/L (3.5-5.1); Sodium 130 mmol/L (137-145)
--- NOTE | 2019-08-24 05:55 | XR ---
EXAMINATION TYPE: XR chest 1V DATE OF EXAM: 08/24/2019 HISTORY: CHF, pleural effusions . REFERENCE: Previous study dated 08/23/2019. FINDINGS: There is a left shoulder arthroplasty in place. The patient's left-sided rib fracture is again identified. There is no evidence of pneumothorax. There are bilateral effusions. Heart size is obscured. There is bibasilar airspace disease. IMPRESSION: NO SIGNIFICANT INTERVAL CHANGE IN THE APPEARANCE OF THE CHEST.
[2019-08-24] MEDS: HYDROmorphone 1 MG/ML 1 ML SYRINGE IVP PRN ×3 (05:57→23:58)
[2019-08-24] MEDS: POTASSIUM CHLORIDE ER 20 MEQ TAB.ER PO SCH ×2 (05:58→07:01)
[2019-08-24] MEDS: PANTOPRAZOLE 40 MG TABLET PO SCH (07:02)
[2019-08-24] MEDS: IPRATROPIUM-ALBUTEROL 3 ML NEB INHALATION SCH ×4 (07:38→19:05)
[2019-08-24] MEDS: METOPROLOL TARTRATE 50 MG TAB PO SCH ×3 (08:26→20:43)
[2019-08-24] MEDS: APIXABAN 5 MG TAB PO SCH ×2 (08:26→20:43)
[2019-08-24] MEDS: AMIODARONE 200 MG TAB PO SCH ×2 (08:26→20:42)
[2019-08-24] MEDS: SODIUM CHLORIDE 0.9% 500 ML 500 ML IV SCH (08:27)
[2019-08-24] MEDS: FUROSEMIDE 10 MG/ML 4 ML VIAL IV SCH ×2 (08:27→20:42)
[2019-08-24] MEDS: ASPIRIN 81 MG PO SCH (08:30)
[2019-08-24] MEDS: bisacodyL 5 MG TABLET.DR PO PRN (08:36)
[2019-08-24] MEDS: MAGNESIUM HYDROXIDE 2,400 MG/10 ML CUP PO PRN (09:49)
--- NOTE | 2019-08-24 10:07 | P.PN ---
Subjective Progress Note Date: 08/24/19 Principal diagnosis: Acute hypoxic/hypercapnic respiratory failure secondary to MSSA and E. coli pneumonia and sepsis Patient is seen today 08/24/2019 in follow-up in the intensive care unit. He is currently resting in bed. Awake and alert in no acute distress. He remains christian te weak. He is on 4 L high flow nasal cannula to maintain O2 saturations in the 90s. His been afebrile. Bronchial wash cultures reveal no growth. White count 8.7. Hemoglobin 8.4. Sodium 1:30. Potassium 3.3. Creatinine 0.45. Remains on IV diuretics, bronchodilators, cefazolin. Objective - Vital Signs Vital signs: Vital Signs Temp 98.3 F 08/23/19 23:00 Pulse 67 08/24/19 07:49 Resp 13 08/23/19 23:00 BP 150/84 08/23/19 23:00 Pulse Ox 93 L 08/24/19 07:37 Intake & Output 08/23/19 08/24/19 08/24/19 18:59 06:59 18:59 Intake Total 340 870 Output Total 1695 700 Balance -1355 170 Weight 92.9 kg Intake: IV 140 370 Sodium Chloride 0.9% 500 140 320 ml 500 ml @ 20 mls/hr IV .Q24H [facility] Rx#:[id number] ceFAZolin 2 gm In Sodium 50 Chloride 0.9% 50 ml @ 100 mls/hr IVPB Q8HR [facility] Rx# :[id number] Oral 200 500 Output: Urine 1695 700 Other: Voiding Method Indwelling Catheter Indwelling Catheter Indwelling Catheter ABP, PAP, CO, CI - Last Documented Arterial Blood Pressure 151/56 - Exam GENERAL EXAM: Awake and alert, pleasant 64-year-old male patient, on 4 L of oxygen and the pulse ox of 93%, extremely weak HEAD: Normocephalic/atraumatic. EYES: Normal reaction of pupils, equal size. Conjunctiva pink, sclera white. NOSE: Clear with pink turbinates. THROAT: No erythema or exudates. NECK: No masses, no JVD, no thyroid enlargement, no adenopathy. CHEST: No chest wall deformity. Symmetrical expansion. LUNGS: Equal air entry with crackles in the bilateral posterior bases CVS: Regular rate and rhythm, normal S1 and S2, no gallops, no murmurs, no rubs ABDOMEN: Soft, nontender. No hepatosplenomegaly, normal bowel sounds, no guarding or rigidity. EXTREMITIES: No clubbing, no edema, no cyanosis, 2+ pulses and upper and lower extremities. MUSCULOSKELETAL: Muscle strength and tone normal. SPINE: No scoliosis or deformity SKIN: No rashes CENTRAL NERVOUS SYSTEM: Awake and alert, generally weak, no focal deficits, tone is normal in all 4 extremities. - Labs CBC & Chem 7: 08/24/19 04:54 08/24/19 04:54 Labs: Abnormal Lab Results - Last 24 Hours (Table) 08/23/19 08/24/19 08/24/19 Range/Units 23:56 04:54 04:54 RBC 3.24 L (4.30-5.90) m/uL Hgb 8.4 L (13.0-17.5) gm/dL Hct 27.0 L (39.0-53.0) % RDW 16.1 H (11.5-15.5) % Plt Count 531 H (150-450) k/uL Lymphocytes # 0.9 L (1.0-4.8) k/uL Sodium 130 L (137-145) mmol/L Potassium 3.3 L (3.5-5.1) mmol/L Chloride 96 L (98-107) mmol/L Creatinine 0.45 L (0.66-1.25) mg/dL POC Glucose (mg/dL) 105 H (75-99) mg/dL Calcium 8.2 L (8.4-10.2) mg/dL Assessment and Plan Assessment: #1. Acute hypoxic/hypercapnic respiratory failure related to MSSA and E. coli pneumonia and sepsis, requiring intubation and mechanical ventilator support, successfully weaned and extubated on 08/16/2019. Patient had bronchoscopy with BAL on 08/16/2019 and so far the cultures are negative. Chest x-ray continues to show evidence of bilateral pleural effusions and fluid volume overload #2. Suspect aspiration pneumonia. #3. MSSA bacteremia #4. Acute kidney injury, improving. Secondary to acute sepsis. #5. Acute sepsis, and acute lactic acidosis on presentation, improved #6. Chronic psychiatric disorder/bipolar disorder. #7. Dyslipidemia. #8. Benign essential hypertension. #9. Shock liver, improved . #10. Acute rhabdomyolysis, resolved #11. Pulmonary hypertension. #12. Staph aureus septicemia, MSSA. #13. Hyperchloremic hypernatremia secondary to diarrhea and intravascular volume depletion. Improved with D5W. #14. Acute hepatic/metabolic encephalopathy, improved #15. Severe generalized weakness, critical illness polyneuropathy #16. Hypernatremia likely related to free water deficit, improved Plan: The patient was seen and evaluated by Dr. Den Gaines from the pulmonary and critical care standpoint Titrate down the FiO2 as tolerated Increase his activity as tolerated Med/surg overflow We will continue to follow and make further recommendations based on his clinical status I, the cosigning physician, performed a history & physical examination of the patient. Lungs sounds with bilateral crackles in the posterior bases. Maintaining good O2 saturations in the 90s on 4L per minute per nasal canula. I discussed the assessment and plan of care with my nurse practitioner, Rochelle Galvan. I attest to the above note as dictated by her.
[2019-08-24] MEDS ORDERED: POTASSIUM CHLORIDE ER 20 MEQ TAB.ER PO SCH (14:00)
--- NOTE | 2019-08-24 18:31 | PN ---
PROGRESS NOTE DATE OF SERVICE: 08/24/2019. REASON FOR FOLLOWUP: MSSA bacteremia with aspiration pneumonia. INTERVAL HISTORY: Patient is currently afebrile. The patient overall is feeling better after receiving an enema. The patient denies having any chest pain. No shortness of breath or cough, feeling slightly better today. PHYSICAL EXAMINATION: Blood pressure 150/84 with a pulse of 73, temperature 98.3. She is 93% on 4 L nasal cannula. GENERAL description is a middle-aged male, lying in bed in no distress. RESPIRATORY system: Unlabored breathing. Clear to auscultation anteriorly. HEART S1, S2. Regular rate and rhythm. ABDOMEN: Soft. No tenderness. LABS: Hemoglobin 8.4, white count 8.7, creatinine 0.45. Blood culture repeat has been negative. DIAGNOSTIC IMPRESSION AND PLAN: Patient with MSSA bacteremia, source aspiration pneumonia. The patient has shown slow clinical improvement. Currently covered with cefazolin to continue and monitor clinical course closely. Continue supportive care. MMODL / IJN: [id number] /
--- NOTE | 2019-08-24 18:51 | P.PN ---
Subjective Progress Note Date: 08/22/19 Principal diagnosis: Acute hypoxic and hypercapnic respiratory failure secondary to sepsis from a staphylococcal bacteremia possible COPD exacerbation Patient is admitted for acute hypoxic and hypercapnic respiratory failure which was believed to be secondary to Covid 19 pneumonia patient is presently on FiO2 of 60%. Patient does have related troponin by highly elevated be high d-dimer is of which patient is on anti-correlation dose of the Lovenox. Patient scored 19 is pending patient has chest x-ray findings consistent with the pulmonary edema or atypical pneumonia or Covid 19 pneumonia along with the significant transaminitis elevated highly elevated LDH highly elevated. Ferritin and significant lymphopenia ration continues to have fever. Patient also has acute renal failure secondary to possibly acute tubular necrosis patient is on sodium bicarbonate and D5 because of hyperkalemia. 08/07/2019 Patient the white blood cell count went up to 17,000. His blood cultures are positive for staph aureus we'll repeat the blood cultures tomorrow. Patient liver enzymes are elevated because of shock liver ultrasound did not show significant abnormality. Patient had an elevated ammonia yesterday which is actually better now after lactulose, patient is off pressors. Patient remains on amiodarone. Computed tomography scan of the brain did not show any signif icant abnormality patient Covid 19 is negative patient remains on cefepime and vancomycin. Primary source is probably lung. Patient has fairly good urine output at 400 mL per hour on volume control ventilation set up respiratory rate of 28 total volume of 450 PEEP of 15 episode of 50% patient's hypercapnic respiratory failure improved and hypoxic respiratory failure improved patient has pH of 7.36 pCO2 of 37 08/07/2028 patient doesn't have any significant clinical improvement remains bacteremic repeat blood cultures are being obtained for today and tomorrow as well. Patient has staph aureus in the blood patient probably will need the transesophageal echocardiogram. Patient is off sedation but is not arousable yet because of which neurology is evaluating the patient and patient is getting EEG patient remains on Vanco mycin cefepime was switched to Zosyn because of concern for aspiration patient aspirin cultures are positive for staph aureus and E. coli along with the species infectious disease is following the patient as well. 08/09/2019 She is still the remains is severely encephalopathic and it and the just withdrawing from painful stimuli off sedation for about 2 days. Patient has severe toxic and metabolic encephalopathy patient is mildly alkalotic patient's present tidal volume is 450 and set up respiratory rate was Down now and patient is breathing over the ventilator and is breathing at around 24/m on an average. FiO2 of 50% PEEP of 10. Patient liver enzymes are bit better patient remains on Zosyn and vancomycin probably vancomycin can be discontinued as patient has MSSA in the blood cultures. Infectious disease is following the patient. Patient white blood cell count remains high patient eventually will need a BRENDA to rule out endocarditis, will plan on this if he has some response on the antibiotics and less encephalopathic and if there is any improvement 08/10/2019 No significant change in his clinical condition including his mental status which it has not improved at patient is hyponatremic because of IV fluids patient is on D5 water now because of hypernatremia and hyperchloremia. Patient remains in the same vent settings as as today remains bacteremic prognosis is extremely poor. Tomorrow we'll discuss with the family regarding overall goals of care. Patient is presently not on pressor support serum creatinine remains stable patient is on amiodarone for atrial fibrillation patient will need repeat blood cultures again tomorrow patient is having thick secretions from the endotracheal to. Patient is presently on Zosyn and vancomycin, rifampin was added patient was started on daily. Because of elevated blood pressure by team coordinator 08/11/2019 Independent improvement in his clinical status today daughter is awaiting evaluation by neurologist if patient remains severely encephalopathy Secondary. There is no chance of reasonable neurological recovery she wants to make him comfort care at that time. Patient remains on clevidipine. Patient last 2 blood cultures are negative. 08/11/2022 Patient is still on ventilator support patient the blood cultures are negative so far his bacteremia secondary to pneumonia. Patient is bit more responsive and response to 2 painful stimuli. White blood cell count started improving patient overall has some improvement has good urine output. 08/13/2019 Patient has significant improvement competitors. Patient is much more awake will undergo repeat cultures tomorrow 08/14/2019 Patient is bit more awake appears to have been improving patient will undergo weaning trial later today 08/15/2019 Patient is bit alkalotic today patient failed a weaning trial patient remains on ceftezole and then clindamycin. Patient is still having quite a few secretions now patient is on Alesse sedation patient respiratory than went has come down to 12 because of his respiratory alkalosis. 08/16/2019 patient is currently on mechanical ventilator.she underwent bronchoscopy and bronchoalveolar lavage today. Follow-up culture reports. Patient is arousable andfollow simple commands. Plan for weaning from ventilator today. Patient remains afebrile. Currently on heparin drip due to history of atrial fibrillation. currently on antibiotics the form of cefazolin and clindamycin. Laboratory data reviewed. Pulmonary is on board. 08/17/2019 Patient was successfully extubated yesterday. Currently on oxygen at 4 L via nasal cannula. Patient still drowsy but able to follow simple commands and open his eyes. Currently on Lasix and Diamox. Patient will be started on oral diet after bedside swallow evaluation. Patient is afebrile. Continued on antibiotics the form of cefazolin and clindamycinfor staph aureus bacteremia. Blood cultures have been negative so far. chest x-ray showed continued changes ofCHF. 08/18/2019 Patient is currently awake alert oriented x3. But lethargic and has been having generalized weakness likely due to myopathy. PT OT may be consulted. Patient was started on clear liquid diet will be advanced. Tolerating oral diet. Patient has been afebrile. Lasix was changed to by mouth as well. Chest x-ray today showed improving changes of pulmonary edema. Patient remained antibiotics in the form of cephalosporin and clindamycin. 08/19/2019 Patient is currently in the MICU. Awake alert and oriented. Currently on BiPAP machine. Feels generally weak and able to follow simple commands. Physical therapy is following. Chest no organisms. Increasing diffuse bilateral airspace disease likely due to pulmonary edema with persistent moderate pleural effusions. Patient is being continued Lasix 40 mg daily. bronchoalveolar lavage cultures negative so far. Initial sputum culture showed staph aureus, E. coli and [place]. Patient remain ed on antibiotics. 08/20/2019 Patient is currently remained in the MICU. Currently on oxygen via nasal cannula. Was BiPAP yesterday. Patient still otherwise very weak and lethargic. Awake alert oriented x3 otherwise. Bilateral basilar crackles in the lung exam. Patient was given a dose of IV Lasix last night. PT OT is following. Still requiring 2 person assistance for ADLs. Patient is being continued antibiotics and breathing treatments. Pulmonary is following. Tolerating oral diet. 08/21/2019 Patient is currently in the intensive care unit. Lying in the bed comfortably. Awake alert oriented x3. No acute distress. Oxygen saturations in the 90s on 5 L via nasal cannula. Patient did not require BiPAP last night. Chest x-ray showed evidence of fluid overload. BAL fluid cultures showed no growth. Laboratory data showed BUN 22 and creatinine 0.56, hemoglobin 8.3 and sodium lev el 133. Calcium 8.1. Patient has been afebrile. Continued on PT OT. Otherwise patient is on antibiotic at home cefazolin and clindamycin. Anticoagulation with Eliquis. Pulmonary is following. Tolerating oral diet slowly. 08/22/2019 Patient is currently awake alert and oriented 3. Tolerating oral diet. Currently on oxygen at 4 L with another cannula. BAL fluid cultures showed no growth. Otherwise patient is participant in physical therapy. Next and chest x-ray showed evidence of fluid volume overload with moderate bilateral pleural effusions. No significant change compared to previous. Patient is currently on oral Lasix. Otherwise laboratory data showed a basic count 8.7, hemoglobin 8.4, potassium 3.5, creatinine 0.54 Pulmonary is following. Currently maintained antibiotics in the form of cefazolin and clindamycin. Current medications reviewed. All inpatient medications were reviewed and appropriate changes in these medications as dictated in the interval history and assessment and plan. Objective - Vital Signs Vital signs: Vital Signs Temp 98.7 F 08/22/19 12:00 Pulse 60 08/22/19 15:12 Resp 18 08/22/19 14:00 BP 136/78 08/22/19 14:00 Pulse Ox 95 08/22/19 14:00 Intake & Output 08/21/19 08/22/19 08/22/19 18:59 06:59 18:59 Intake Total 920 290 390 Output Total 0056 595 4889 Balance -140 555 -1160 Weight 99.2 kg 97.4 kg Intake: IV 220 290 190 Sodium Chloride 0.9% 500 220 240 140 ml 500 ml @ 20 mls/hr IV .Q24H [facility] Rx#:[id number] ceFAZolin 2 gm In Sodium 50 50 Chloride 0.9% 50 ml @ 100 mls/hr IVPB Q8HR [facility] Rx# :[id number] Oral 700 200 Output: Urine 2384 [id number] Other: Voiding Method Indwelling Catheter Indwelling Catheter Indwelling Catheter ABP, PAP, CO, CI - Last Documented Arterial Blood Pressure 151/56 - Exam PHYSICAL EXAMINATION: GENERAL: Patient is Awake alert and oriented x3. Generalized weakness and lethargy. HEENT: Pupils are round and equally reacting to light. EOMI. No scleral icterus. No conjunctival pallor. Normocephalic, atraumatic. No pharyngeal erythema. No thyromegaly. CARDIOVASCULAR: S1 and S2 present. No murmurs, rubs, or gallops. PULMONARY: Scattered rhonchi and crackles., no wheezing. ABDOMEN: Soft, nontender, nondistended, normoactive bowel sounds. No palpable organomegaly. MUSCULOSKELETAL: No joint swelling or deformity. EXTREMITIES: No cyanosis, clubbing, 1+pedal edema. NEUROLOGICAL: Gross neurological examination did not reveal any focal deficits. SKIN: No rashes. - Labs CBC & Chem 7: 08/24/19 04:54 08/24/19 11:00 Labs: Abnormal Lab Results - Last 24 Hours (Table) 08/21/19 08/22/19 08/22/19 Range/Units 17:57 04:58 04:58 RBC 3.21 L (4.30-5.90) m/uL Hgb 8.4 L (13.0-17.5) gm/dL Hct 27.1 L (39.0-53.0) % RDW 16.4 H (11.5-15.5) % Plt Count 646 H (150-450) k/uL Sodium 130 L (137-145) mmol/L Creatinine 0.54 L (0.66-1.25) mg/dL POC Glucose (mg/dL) 107 H (75-99) mg/dL Calcium 8.3 L (8.4-10.2) mg/dL 08/22/19 Range/Units 11:55 RBC (4.30-5.90) m/uL Hgb (13.0-17.5) gm/dL Hct (39.0-53.0) % RDW (11.5-15.5) % Plt Count (150-450) k/uL Sodium (137-145) mmol/L Creatinine (0.66-1.25) mg/dL POC Glucose (mg/dL) 103 H (75-99) mg/dL Calcium (8.4-10.2) mg/dL Assessment and Plan Assessment: Acute hypoxic and hypercapnic respiratory failure secondary to sepsis from a staphylococcal bacteremia possible COPD exacerbation. patient is currently extubated. -persistent bacteremia with MSSA. Patient patient was switched to cefazolin and clindamycin, which provides double coverage for MSSA and also covers aspiration pneumonia if any.repeat cultures have been negative. -Sepsis shock shock resolved . secondary to staphylococcal pneumonia, patient has persistent bacteremia. suspected aspiration pneumonia. -MSSA and E. coli pneumonia - possible acute CHF with diastolic dysfunction -Severe toxic encephalopathy from sepsis and septic shock. Improving. -Acute renal failure possibly acute tubular necrosis patient creatinine improved with IV fluids -Lactic acidosis secondary to sepsis Hypernatremia and hyperchloremia secondary to normal saline which was discontinued and patient received Lasix yesterday. -Hypertension -Hyperlipidemia next and heparin hypertension -Elevated liver enzymes probably secondary to shock liver. -Hepatic encephalopathy: Ammonia level is bit better now. -Troponin leak secondary to myocardial injury from sepsis. -Severe pulmonary hypertension -Generalized weakness and fatigue likely due to myopathy. Time with Patient: Greater than 30
--- NOTE | 2019-08-24 18:52 | P.PN ---
Subjective Progress Note Date: 08/23/19 Principal diagnosis: Acute hypoxic and hypercapnic respiratory failure secondary to sepsis from a staphylococcal bacteremia possible COPD exacerbation Patient is admitted for acute hypoxic and hypercapnic respiratory failure which was believed to be secondary to Covid 19 pneumonia patient is presently on FiO2 of 60%. Patient does have related troponin by highly elevated be high d-dimer is of which patient is on anti-correlation dose of the Lovenox. Patient scored 19 is pending patient has chest x-ray findings consistent with the pulmonary edema or atypical pneumonia or Covid 19 pneumonia along with the significant transaminitis elevated highly elevated LDH highly elevated. Ferritin and significant lymphopenia ration continues to have fever. Patient also has acute renal failure secondary to possibly acute tubular necrosis patient is on sodium bicarbonate and D5 because of hyperkalemia. 08/07/2019 Patient the white blood cell count went up to 17,000. His blood cultures are positive for staph aureus we'll repeat the blood cultures tomorrow. Patient liver enzymes are elevated because of shock liver ultrasound did not show significant abnormality. Patient had an elevated ammonia yesterday which is actually better now after lactulose, patient is off pressors. Patient remains on amiodarone. Computed tomography scan of the brain did not show any signif icant abnormality patient Covid 19 is negative patient remains on cefepime and vancomycin. Primary source is probably lung. Patient has fairly good urine output at 400 mL per hour on volume control ventilation set up respiratory rate of 28 total volume of 450 PEEP of 15 episode of 50% patient's hypercapnic respiratory failure improved and hypoxic respiratory failure improved patient has pH of 7.36 pCO2 of 37 08/07/2028 patient doesn't have any significant clinical improvement remains bacteremic repeat blood cultures are being obtained for today and tomorrow as well. Patient has staph aureus in the blood patient probably will need the transesophageal echocardiogram. Patient is off sedation but is not arousable yet because of which neurology is evaluating the patient and patient is getting EEG patient remains on Vanco mycin cefepime was switched to Zosyn because of concern for aspiration patient aspirin cultures are positive for staph aureus and E. coli along with the species infectious disease is following the patient as well. 08/09/2019 She is still the remains is severely encephalopathic and it and the just withdrawing from painful stimuli off sedation for about 2 days. Patient has severe toxic and metabolic encephalopathy patient is mildly alkalotic patient's present tidal volume is 450 and set up respiratory rate was Down now and patient is breathing over the ventilator and is breathing at around 24/m on an average. FiO2 of 50% PEEP of 10. Patient liver enzymes are bit better patient remains on Zosyn and vancomycin probably vancomycin can be discontinued as patient has MSSA in the blood cultures. Infectious disease is following the patient. Patient white blood cell count remains high patient eventually will need a BRENDA to rule out endocarditis, will plan on this if he has some response on the antibiotics and less encephalopathic and if there is any improvement 08/10/2019 No significant change in his clinical condition including his mental status which it has not improved at patient is hyponatremic because of IV fluids patient is on D5 water now because of hypernatremia and hyperchloremia. Patient remains in the same vent settings as as today remains bacteremic prognosis is extremely poor. Tomorrow we'll discuss with the family regarding overall goals of care. Patient is presently not on pressor support serum creatinine remains stable patient is on amiodarone for atrial fibrillation patient will need repeat blood cultures again tomorrow patient is having thick secretions from the endotracheal to. Patient is presently on Zosyn and vancomycin, rifampin was added patient was started on daily. 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 There is no chance of reasonable neurological recovery she wants to make him comfort care at that time. Patient remains on clevidipine. Patient last 2 blood cultures are negative. 08/11/2022 Patient is still on ventilator support patient the blood cultures are negative so far his bacteremia secondary to pneumonia. Patient is bit more responsive and response to 2 painful stimuli. White blood cell count started improving patient overall has some improvement has good urine output. 08/13/2019 Patient has significant improvement competitors. Patient is much more awake will undergo repeat cultures tomorrow 08/14/2019 Patient is bit more awake appears to have been improving patient will undergo weaning trial later today 08/15/2019 Patient is bit alkalotic today patient failed a weaning trial patient remains on ceftezole and then clindamycin. Patient is still having quite a few secretions now patient is on Alesse sedation patient respiratory than went has come down to 12 because of his respiratory alkalosis. 08/16/2019 patient is currently on mechanical ventilator.she underwent bronchoscopy and bronchoalveolar lavage today. Follow-up culture reports. Patient is arousable andfollow simple commands. Plan for weaning from ventilator today. Patient remains afebrile. Currently on heparin drip due to history of atrial fibrillation. currently on antibiotics the form of cefazolin and clindamycin. Laboratory data reviewed. Pulmonary is on board. 08/17/2019 Patient was successfully extubated yesterday. Currently on oxygen at 4 L via nasal cannula. Patient still drowsy but able to follow simple commands and open his eyes. Currently on Lasix and Diamox. Patient will be started on oral diet after bedside swallow evaluation. Patient is afebrile. Continued on antibiotics the form of cefazolin and clindamycinfor staph aureus bacteremia. Blood cultures have been negative so far. chest x-ray showed continued changes ofCHF. 08/18/2019 Patient is currently awake alert oriented x3. But lethargic and has been having generalized weakness likely due to myopathy. PT OT may be consulted. Patient was started on clear liquid diet will be advanced. Tolerating oral diet. Patient has been afebrile. Lasix was changed to by mouth as well. Chest x-ray today showed improving changes of pulmonary edema. Patient remained antibiotics in the form of cephalosporin and clindamycin. 08/19/2019 Patient is currently in the MICU. Awake alert and oriented. Currently on BiPAP machine. Feels generally weak and able to follow simple commands. Physical therapy is following. Chest no organisms. Increasing diffuse bilateral airspace disease likely due to pulmonary edema with persistent moderate pleural effusions. Patient is being continued Lasix 40 mg daily. bronchoalveolar lavage cultures negative so far. Initial sputum culture showed staph aureus, E. coli and [place]. Patient remain ed on antibiotics. 08/20/2019 Patient is currently remained in the MICU. Currently on oxygen via nasal cannula. Was BiPAP yesterday. Patient still otherwise very weak and lethargic. Awake alert oriented x3 otherwise. Bilateral basilar crackles in the lung exam. Patient was given a dose of IV Lasix last night. PT OT is following. Still requiring 2 person assistance for ADLs. Patient is being continued antibiotics and breathing treatments. Pulmonary is following. Tolerating oral diet. 08/21/2019 Patient is currently in the intensive care unit. Lying in the bed comfortably. Awake alert oriented x3. No acute distress. Oxygen saturations in the 90s on 5 L via nasal cannula. Patient did not require BiPAP last night. Chest x-ray showed evidence of fluid overload. BAL fluid cultures showed no growth. Laboratory data showed BUN 22 and creatinine 0.56, hemoglobin 8.3 and sodium lev el 133. Calcium 8.1. Patient has been afebrile. Continued on PT OT. Otherwise patient is on antibiotic at home cefazolin and clindamycin. Anticoagulation with Eliquis. Pulmonary is following. Tolerating oral diet slowly. 08/22/2019 Patient is currently awake alert and oriented 3. Tolerating oral diet. Currently on oxygen at 4 L with another cannula. BAL fluid cultures showed no growth. Otherwise patient is participant in physical therapy. Next and chest x-ray showed evidence of fluid volume overload with moderate bilateral pleural effusions. No significant change compared to previous. Patient is currently on oral Lasix. Otherwise laboratory data showed a basic count 8.7, hemoglobin 8.4, potassium 3.5, creatinine 0.54 Pulmonary is following. Currently maintained antibiotics in the form of cefazolin and clindamycin. 08/23/2019 Patient is currently awake alert and oriented 3. Still requiring oxygen with another cannula. Chest x-ray showed slight improvement but still having fluid overload. Part spreading in physical therapy. Able to stand today with PT. Patient is on anticoagulation for atrial fibrillation paroxysmal. Patient is also being continued on antibiotics ceftezole and clindamycin due to MSSA bacteremia and MSSA, E. coli pneumonia. Pulmonary is following. Current medications reviewed. All inpatient medications were reviewed and appropriate changes in these medications as dictated in the interval history and assessment and plan. Objective - Vital Signs Vital signs: Vital Signs Temp 98.1 F 08/23/19 15:00 Pulse 64 08/23/19 19:26 Resp 22 08/23/19 15:00 BP 142/82 08/23/19 15:00 Pulse Ox 95 08/23/19 15:00 Intake & Output 08/23/19 08/23/19 08/24/19 06:59 18:59 06:59 Intake Total 410 340 160 Output Total 4283 1695 350 Balance -1485 -1355 -190 Weight 94.9 kg Intake: IV 310 140 160 Sodium Chloride 0.9% 500 260 140 160 ml 500 ml @ 20 mls/hr IV .Q24H [facility] Rx#:[id number] ceFAZolin 2 gm In Sodium 50 Chloride 0.9% 50 ml @ 100 mls/hr IVPB Q8HR [facility] Rx# :[id number] Oral 100 200 Output: Urine 1895 1695 350 Other: Voiding Method Indwelling Catheter Indwelling Catheter ABP, PAP, CO, CI - Last Documented Arterial Blood Pressure 151/56 - Exam PHYSICAL EXAMINATION: GENERAL: Patient is Awake alert and oriented x3. Generalized weakness and lethargy. HEENT: Pupils are round and equally reacting to light. EOMI. No scleral icterus. No conjunctival pallor. Normocephalic, atraumatic. No pharyngeal erythema. No thyromegaly. CARDIOVASCULAR: S1 and S2 present. No murmurs, rubs, or gallops. PULMONARY: Scattered rhonchi and crackles., no wheezing. ABDOMEN: Soft, nontender, nondistended, normoactive bowel sounds. No palpable organomegaly. MUSCULOSKELETAL: No joint swelling or deformity. EXTREMITIES: No cyanosis, clubbing, 1+pedal edema. NEUROLOGICAL: Gross neurological examination did not reveal any focal deficits. SKIN: No rashes. - Labs CBC & Chem 7: 08/24/19 04:54 08/24/19 11:00 Labs: Abnormal Lab Results - Last 24 Hours (Table) 08/23/19 08/23/19 Range/Units 05:30 05:30 RBC 3.29 L (4.30-5.90) m/uL Hgb 8.6 L (13.0-17.5) gm/dL Hct 27.5 L (39.0-53.0) % RDW 16.4 H (11.5-15.5) % Plt Count 613 H (150-450) k/uL Sodium 132 L (137-145) mmol/L Creatinine 0.55 L (0.66-1.25) mg/dL Assessment and Plan Assessment: Acute hypoxic and hypercapnic respiratory failure secondary to sepsis from a staphylococcal bacteremia possible COPD exacerbation. patient is currently extubated. -persistent bacteremia with MSSA. Patient patient was switched to cefazolin and clindamycin, which provides double coverage for MSSA and also covers aspiration pneumonia if any.repeat cultures have been negative. -Sepsis shock shock resolved . secondary to staphylococcal pneumonia, patient has persistent bacteremia. suspected aspiration pneumonia. -MSSA and E. coli pneumonia - possible acute CHF with diastolic dysfunction -Severe toxic encephalopathy from sepsis and septic shock. Improving. -Acute renal failure possibly acute tubular necrosis patient creatinine improved with IV fluids -Lactic acidosis secondary to sepsis Hypernatremia and hyperchloremia secondary to normal saline which was discontinued and patient received Lasix yesterday. -Hypertension -Hyperlipidemia next and heparin hypertension -Elevated liver enzymes probably secondary to shock liver. -Hepatic encephalopathy: Ammonia level is bit better now. -Troponin leak secondary to myocardial injury from sepsis. -Severe pulmonary hypertension -Generalized weakness and fatigue likely due to myopathy. Time with Patient: Greater than 30
--- NOTE | 2019-08-24 18:55 | P.PN ---
Subjective Progress Note Date: 08/24/19 Principal diagnosis: Acute hypoxic and hypercapnic respiratory failure secondary to sepsis from a staphylococcal bacteremia possible COPD exacerbation Patient is admitted for acute hypoxic and hypercapnic respiratory failure which was believed to be secondary to Covid 19 pneumonia patient is presently on FiO2 of 60%. Patient does have related troponin by highly elevated be high d-dimer is of which patient is on anti-correlation dose of the Lovenox. Patient scored 19 is pending patient has chest x-ray findings consistent with the pulmonary edema or atypical pneumonia or Covid 19 pneumonia along with the significant transaminitis elevated highly elevated LDH highly elevated. Ferritin and significant lymphopenia ration continues to have fever. Patient also has acute renal failure secondary to possibly acute tubular necrosis patient is on sodium bicarbonate and D5 because of hyperkalemia. 08/07/2019 Patient the white blood cell count went up to 17,000. His blood cultures are positive for staph aureus we'll repeat the blood cultures tomorrow. Patient liver enzymes are elevated because of shock liver ultrasound did not show significant abnormality. Patient had an elevated ammonia yesterday which is actually better now after lactulose, patient is off pressors. Patient remains on amiodarone. Computed tomography scan of the brain did not show any signif icant abnormality patient Covid 19 is negative patient remains on cefepime and vancomycin. Primary source is probably lung. Patient has fairly good urine output at 400 mL per hour on volume control ventilation set up respiratory rate of 28 total volume of 450 PEEP of 15 episode of 50% patient's hypercapnic respiratory failure improved and hypoxic respiratory failure improved patient has pH of 7.36 pCO2 of 37 08/07/2028 patient doesn't have any significant clinical improvement remains bacteremic repeat blood cultures are being obtained for today and tomorrow as well. Patient has staph aureus in the blood patient probably will need the transesophageal echocardiogram. Patient is off sedation but is not arousable yet because of which neurology is evaluating the patient and patient is getting EEG patient remains on Vanco mycin cefepime was switched to Zosyn because of concern for aspiration patient aspirin cultures are positive for staph aureus and E. coli along with the species infectious disease is following the patient as well. 08/09/2019 She is still the remains is severely encephalopathic and it and the just withdrawing from painful stimuli off sedation for about 2 days. Patient has severe toxic and metabolic encephalopathy patient is mildly alkalotic patient's present tidal volume is 450 and set up respiratory rate was Down now and patient is breathing over the ventilator and is breathing at around 24/m on an average. FiO2 of 50% PEEP of 10. Patient liver enzymes are bit better patient remains on Zosyn and vancomycin probably vancomycin can be discontinued as patient has MSSA in the blood cultures. Infectious disease is following the patient. Patient white blood cell count remains high patient eventually will need a BRENDA to rule out endocarditis, will plan on this if he has some response on the antibiotics and less encephalopathic and if there is any improvement 08/10/2019 No significant change in his clinical condition including his mental status which it has not improved at patient is hyponatremic because of IV fluids patient is on D5 water now because of hypernatremia and hyperchloremia. Patient remains in the same vent settings as as today remains bacteremic prognosis is extremely poor. Tomorrow we'll discuss with the family regarding overall goals of care. Patient is presently not on pressor support serum creatinine remains stable patient is on amiodarone for atrial fibrillation patient will need repeat blood cultures again tomorrow patient is having thick secretions from the endotracheal to. Patient is presently on Zosyn and vancomycin, rifampin was added patient was started on daily. 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 There is no chance of reasonable neurological recovery she wants to make him comfort care at that time. Patient remains on clevidipine. Patient last 2 blood cultures are negative. 08/11/2022 Patient is still on ventilator support patient the blood cultures are negative so far his bacteremia secondary to pneumonia. Patient is bit more responsive and response to 2 painful stimuli. White blood cell count started improving patient overall has some improvement has good urine output. 08/13/2019 Patient has significant improvement competitors. Patient is much more awake will undergo repeat cultures tomorrow 08/14/2019 Patient is bit more awake appears to have been improving patient will undergo weaning trial later today 08/15/2019 Patient is bit alkalotic today patient failed a weaning trial patient remains on ceftezole and then clindamycin. Patient is still having quite a few secretions now patient is on Alesse sedation patient respiratory than went has come down to 12 because of his respiratory alkalosis. 08/16/2019 patient is currently on mechanical ventilator.she underwent bronchoscopy and bronchoalveolar lavage today. Follow-up culture reports. Patient is arousable andfollow simple commands. Plan for weaning from ventilator today. Patient remains afebrile. Currently on heparin drip due to history of atrial fibrillation. currently on antibiotics the form of cefazolin and clindamycin. Laboratory data reviewed. Pulmonary is on board. 08/17/2019 Patient was successfully extubated yesterday. Currently on oxygen at 4 L via nasal cannula. Patient still drowsy but able to follow simple commands and open his eyes. Currently on Lasix and Diamox. Patient will be started on oral diet after bedside swallow evaluation. Patient is afebrile. Continued on antibiotics the form of cefazolin and clindamycinfor staph aureus bacteremia. Blood cultures have been negative so far. chest x-ray showed continued changes ofCHF. 08/18/2019 Patient is currently awake alert oriented x3. But lethargic and has been having generalized weakness likely due to myopathy. PT OT may be consulted. Patient was started on clear liquid diet will be advanced. Tolerating oral diet. Patient has been afebrile. Lasix was changed to by mouth as well. Chest x-ray today showed improving changes of pulmonary edema. Patient remained antibiotics in the form of cephalosporin and clindamycin. 08/19/2019 Patient is currently in the MICU. Awake alert and oriented. Currently on BiPAP machine. Feels generally weak and able to follow simple commands. Physical therapy is following. Chest no organisms. Increasing diffuse bilateral airspace disease likely due to pulmonary edema with persistent moderate pleural effusions. Patient is being continued Lasix 40 mg daily. bronchoalveolar lavage cultures negative so far. Initial sputum culture showed staph aureus, E. coli and [place]. Patient remain ed on antibiotics. 08/20/2019 Patient is currently remained in the MICU. Currently on oxygen via nasal cannula. Was BiPAP yesterday. Patient still otherwise very weak and lethargic. Awake alert oriented x3 otherwise. Bilateral basilar crackles in the lung exam. Patient was given a dose of IV Lasix last night. PT OT is following. Still requiring 2 person assistance for ADLs. Patient is being continued antibiotics and breathing treatments. Pulmonary is following. Tolerating oral diet. 08/21/2019 Patient is currently in the intensive care unit. Lying in the bed comfortably. Awake alert oriented x3. No acute distress. Oxygen saturations in the 90s on 5 L via nasal cannula. Patient did not require BiPAP last night. Chest x-ray showed evidence of fluid overload. BAL fluid cultures showed no growth. Laboratory data showed BUN 22 and creatinine 0.56, hemoglobin 8.3 and sodium lev el 133. Calcium 8.1. Patient has been afebrile. Continued on PT OT. Otherwise patient is on antibiotic at home cefazolin and clindamycin. Anticoagulation with Eliquis. Pulmonary is following. Tolerating oral diet slowly. 08/22/2019 Patient is currently awake alert and oriented 3. Tolerating oral diet. Currently on oxygen at 4 L with another cannula. BAL fluid cultures showed no growth. Otherwise patient is participant in physical therapy. Next and chest x-ray showed evidence of fluid volume overload with moderate bilateral pleural effusions. No significant change compared to previous. Patient is currently on oral Lasix. Otherwise laboratory data showed a basic count 8.7, hemoglobin 8.4, potassium 3.5, creatinine 0.54 Pulmonary is following. Currently maintained antibiotics in the form of cefazolin and clindamycin. 08/23/2019 Patient is currently awake alert and oriented 3. Still requiring oxygen with another cannula. Chest x-ray showed slight improvement but still having fluid overload. Part spreading in physical therapy. Able to stand today with PT. Patient is on anticoagulation for atrial fibrillation paroxysmal. Patient is also being continued on antibiotics ceftezole and clindamycin due to MSSA bacteremia and MSSA, E. coli pneumonia. Pulmonary is following. 08/24/2019 Patient is currently more awake and oriented. Able to participate in physical therapy and was able to sit in the chair with physical therapy. Otherwise still requiring 4 L oxygen via nasal cannula. Repeat chest x-ray showed no significant interval change in the appearance of the chest. Patient is being continued on IV diuresis. Antibodies in the form of cefazolin. Gentamicin has been discontinued. Patient has been afebrile. BAL fluid cultures showed no growth. No chest pain or worsening shortness of breath. Tolerating oral diet slowly. Otherwise laboratory data showed no loose 8.7, hemoglobin 8.4, sodium 1:30, potassium 3.3 and creatinine level is 0.45 Current medications reviewed. All inpatient medications were reviewed and appropriate changes in these medications as dictated in the interval history and assessment and plan. Objective - Vital Signs Vital signs: Vital Signs Temp 98.3 F 08/23/19 23:00 Pulse 90 08/24/19 15:28 Resp 18 08/24/19 16:00 BP 150/84 08/23/19 23:00 Pulse Ox 93 L 08/24/19 07:37 Intake & Output 08/23/19 08/24/19 08/24/19 18:59 06:59 18:59 Intake Total 340 870 130 Output Total 7804 977 1971 Balance -1355 170 -1470 Weight 92.9 kg Intake: IV 140 370 130 Sodium Chloride 0.9% 500 140 320 80 ml 500 ml @ 20 mls/hr IV .Q24H [facility] Rx#:[id number] ceFAZolin 2 gm In Sodium 50 50 Chloride 0.9% 50 ml @ 100 mls/hr IVPB Q8HR [facility] Rx# :[id number] Oral 200 500 Output: Urine 5186 985 7549 Other: Voiding Method Indwelling Catheter Indwelling Catheter Indwelling Catheter ABP, PAP, CO, CI - Last Documented Arterial Blood Pressure 151/56 - Exam PHYSICAL EXAMINATION: GENERAL: Patient is Awake alert and oriented x3. Generalized weakness and lethargy. HEENT: Pupils are round and equally reacting to light. EOMI. No scleral icterus. No conjunctival pallor. Normocephalic, atraumatic. No pharyngeal erythema. No thyromegaly. CARDIOVASCULAR: S1 and S2 present. No murmurs, rubs, or gallops. PULMONARY: Scattered rhonchi and crackles., no wheezing. ABDOMEN: Soft, nontender, nondistended, normoactive bowel sounds. No palpable organomegaly. MUSCULOSKELETAL: No joint swelling or deformity. EXTREMITIES: No cyanosis, clubbing, 1+pedal edema. NEUROLOGICAL: Gross neurological examination did not reveal any focal deficits. SKIN: No rashes. - Labs CBC & Chem 7: 08/24/19 04:54 08/24/19 11:00 Labs: Abnormal Lab Results - Last 24 Hours (Table) 08/23/19 08/24/19 08/24/19 Range/Units 23:56 04:54 04:54 RBC 3.24 L (4.30-5.90) m/uL Hgb 8.4 L (13.0-17.5) gm/dL Hct 27.0 L (39.0-53.0) % RDW 16.1 H (11.5-15.5) % Plt Count 531 H (150-450) k/uL Lymphocytes # 0.9 L (1.0-4.8) k/uL Sodium 130 L (137-145) mmol/L Potassium 3.3 L (3.5-5.1) mmol/L Chloride 96 L (98-107) mmol/L Creatinine 0.45 L (0.66-1.25) mg/dL POC Glucose (mg/dL) 105 H (75-99) mg/dL Calcium 8.2 L (8.4-10.2) mg/dL Assessment and Plan Assessment: Acute hypoxic and hypercapnic respiratory failure secondary to sepsis from a staphylococcal bacteremia possible COPD exacerbation. patient is currently extubated. -persistent bacteremia with MSSA. Patient patient was switched to cefazolin and clindamycin, which provides double coverage for MSSA and also covers aspiration pneumonia if any.repeat cultures have been negative. -Sepsis shock shock resolved . secondary to staphylococcal pneumonia, patient has persistent bacteremia. suspected aspiration pneumonia. -MSSA and E. coli pneumonia - possible acute CHF with diastolic dysfunction -Severe toxic encephalopathy from sepsis and septic shock. Improving. -Acute renal failure possibly acute tubular necrosis patient creatinine improved with IV fluids -Lactic acidosis secondary to sepsis Hypernatremia and hyperchloremia secondary to normal saline which was di scontinued and patient received Lasix yesterday. -Hypertension -Hyperlipidemia next and heparin hypertension -Elevated liver enzymes probably secondary to shock liver. -Hepatic encephalopathy: Ammonia level is bit better now. -Troponin leak secondary to myocardial injury from sepsis. -Severe pulmonary hypertension -Generalized weakness and fatigue likely due to myopathy. Time with Patient: Greater than 30
[2019-08-25] MEDS: oxyCODONE-APAP 5-325MG 1 EACH TAB PO PRN ×3 (05:50→18:14)
[2019-08-25 05:55] LABS: Basophils % (A) 0 %; Eosinophils # (A) 0.1 k/uL (0-0.7); Eosinophils % (A) 1 %; HCT 28.1 % (39.0-53.0); HGB 9.1 gm/dL (13.0-17.5); Hypochromasia Moderate; Lymphocytes % (A) 11 %; MCH 27.2 pg (25.0-35.0); MCHC 32.4 g/dL (31.0-37.0); Mean Platelet Volume 6.7; Monocytes # (A) 0.7 k/uL (0-1.0); Monocytes % (A) 7 %; Neutrophils # (A) 7.4 k/uL (1.3-7.7); Neutrophils % (A) 79 %; Platelet Count 540 k/uL (150-450); RBC 3.34 m/uL (4.30-5.90); RDW 15.5 % (11.5-15.5); WBC 9.4 k/uL (3.8-10.6)
--- NOTE | 2019-08-25 05:55 | XR ---
EXAMINATION TYPE: XR chest 1V DATE OF EXAM: 08/25/2019 HISTORY: CHF. . REFERENCE: Previous study dated 08/24/2019. FINDINGS: The left shoulder arthroplasties in place. There is worsening opacity of the right hemithor ax. There is left basilar airspace disease. There are bilateral effusions, greater on the right and l eft. Heart size is largely obscured. IMPRESSION: 1. CONTINUING BIBASILAR AIRSPACE DISEASE. 2. BILATERAL EFFUSIONS, WORSE ON THE RIGHT THAN THE LEFT.
[2019-08-25 06:20] LABS: African American GFR (CKD) >90 (>60 ml/min/1.73 sqM); Anion Gap 6 mmol/L; Blood Urea Nitrogen 12 mg/dL (9-20); Carbon Dioxide 30 mmol/L (22-30); Chloride 95 mmol/L (98-107); Glucose 92 mg/dL (74-99); Non-African American GFR(CKD) >90 (>60 ml/min/1.73 sqM); Potassium 3.8 mmol/L (3.5-5.1); Sodium 131 mmol/L (137-145)
[2019-08-25] MEDS: PANTOPRAZOLE 40 MG TABLET PO SCH (06:46)
[2019-08-25] MEDS ORDERED: POTASSIUM CHLORIDE ER 20 MEQ TAB.ER PO SCH (07:00)
[2019-08-25] MEDS: IPRATROPIUM-ALBUTEROL 3 ML NEB INHALATION SCH ×4 (07:00→19:03)
[2019-08-25] MEDS: HYDROmorphone 1 MG/ML 1 ML SYRINGE IVP PRN ×2 (08:30→16:31)
[2019-08-25] MEDS: ASPIRIN 81 MG PO SCH (08:31)
[2019-08-25] MEDS: APIXABAN 5 MG TAB PO SCH ×2 (08:31→11:26)
[2019-08-25] MEDS: METOPROLOL TARTRATE 50 MG TAB PO SCH ×3 (08:31→21:30)
[2019-08-25] MEDS: FUROSEMIDE 10 MG/ML 4 ML VIAL IV SCH ×3 (08:31→23:38)
[2019-08-25] MEDS: AMIODARONE 200 MG TAB PO SCH ×2 (08:31→21:30)
[2019-08-25] MEDS: SODIUM CHLORIDE 0.9% 500 ML 500 ML IV SCH (10:10)
--- NOTE | 2019-08-25 10:48 | US ---
EXAMINATION TYPE: US chest DATE OF EXAM: 08/25/2019 COMPARISON: Previous study dated 08/12/2019. CLINICAL HISTORY: Right pleural effusions. Effusion, right TECHNIQUE: Targeted ultrasound of the posterior lower right hemithorax EXAM MEASUREMENTS: Right Pleural Effusion pocket size: 12.0 cm Right skin surface to fluid distance: 3.7 cm Right side marked for possible thoracentesis outside the dept. Pulmonologists are able to review the images in the patient?s EMR. IMPRESSIONS: RIGHT-SIDED PLEURAL EFFUSION.
--- NOTE | 2019-08-25 11:32 | P.PN ---
Subjective Progress Note Date: 08/25/19 Principal diagnosis: Acute hypoxic/hypercapnic respiratory failure secondary to MSSA and E. coli pneumonia and sepsis Patient is seen today 08/24/2019 in follow-up in the intensive care unit. He is currently resting in bed. Awake and alert in no acute distress. He remains christian te weak. He is on 4 L high flow nasal cannula to maintain O2 saturations in the 90s. His been afebrile. Bronchial wash cultures reveal no growth. White count 8.7. Hemoglobin 8.4. Sodium 1:30. Potassium 3.3. Creatinine 0.45. Remains on IV diuretics, bronchodilators, cefazolin. The patient is seen today 08/25/2019 in follow-up in the intensive care unit. He is awake and alert in no acute distress. Resting comfortably in bed. He did require increase in FiO2 to 6 L high flow nasal cannula to maintain O2 saturations in the 90s. He has a 0.9#10 mL per hour. He is currently seen on Lasix 40 mg IV every 12 hours. Chest x-ray continues to show worsening opacity of the right hemithorax. There is a left basilar airspace disease. Bilateral effusions right greater than left. Ultrasound of the right chest today reveals a 12.0 cm pocket. The patient did have Eliquis this morning. White count 9.4. Hemoglobin 9.1. Sodium 131. Potassium 3.8. Creatinine 0.46. Remains in a negative balance. Weight continues to gradually decline. Less edema. Objective - Vital Signs Vital signs: Vital Signs Temp 97.9 F 08/25/19 08:00 Pulse 90 08/25/19 11:18 Resp 18 08/25/19 08:00 BP 132/76 08/25/19 08:00 Pulse Ox 90 L 08/25/19 08:00 Intake & Output 08/24/19 08/25/19 08/25/19 18:59 06:59 18:59 Intake Total 130 290 280 Output Total 1600 2450 130 Balance -1470 -2160 150 Weight 92.5 kg Intake: IV 130 290 40 Sodium Chloride 0.9% 500 80 240 20 ml 500 ml @ 20 mls/hr IV .Q24H [facility] Rx#:[id number] ceFAZolin 2 gm In Sodium 50 50 20 Chloride 0.9% 50 ml @ 100 mls/hr IVPB Q8HR [facility] Rx# :[id number] Oral 240 Output: Urine 1600 2450 130 Other: Voiding Method Indwelling Catheter Indwelling Catheter Indwelling Catheter ABP, PAP, CO, CI - Last Documented Arterial Blood Pressure 151/56 - Exam GENERAL EXAM: Awake and alert, pleasant 64-year-old male patient, on 6 L of oxygen and the pulse ox of 90%, extremely weak HEAD: Normocephalic/atraumatic. EYES: Normal reaction of pupils, equal size. Conjunctiva pink, sclera white. NOSE: Clear with pink turbinates. THROAT: No erythema or exudates. NECK: No masses, no JVD, no thyroid enlargement, no adenopathy. CHEST: No chest wall deformity. Symmetrical expansion. LUNGS: Equal air entry with crackles in the bilateral posterior bases right gre ater than left CVS: Regular rate and rhythm, normal S1 and S2, no gallops, no murmurs, no rubs ABDOMEN: Soft, nontender. No hepatosplenomegaly, normal bowel sounds, no guarding or rigidity. EXTREMITIES: No clubbing, 1-2+ edema, no cyanosis, 2+ pulses and upper and lower extremities. MUSCULOSKELETAL: Muscle strength and tone normal. SPINE: No scoliosis or deformity SKIN: No rashes CENTRAL NERVOUS SYSTEM: Awake and alert, generally weak, no focal deficits, tone is normal in all 4 extremities. - Labs CBC & Chem 7: 08/25/19 05:28 08/25/19 05:28 Labs: Abnormal Lab Results - Last 24 Hours (Table) 08/25/19 08/25/19 Range/Units 05:28 05:28 RBC 3.34 L (4.30-5.90) m/uL Hgb 9.1 L (13.0-17.5) gm/dL Hct 28.1 L (39.0-53.0) % Plt Count 540 H (150-450) k/uL Sodium 131 L (137-145) mmol/L Chloride 95 L (98-107) mmol/L Creatinine 0.46 L (0.66-1.25) mg/dL Calcium 8.0 L (8.4-10.2) mg/dL Assessment and Plan Assessment: #1. Acute hypoxic/hypercapnic respiratory failure related to MSSA and E. coli pneumonia and sepsis, requiring intubation and mechanical ventilator support, successfully weaned and extubated on 08/16/2019. Patient had bronchoscopy with BAL on 08/16/2019 and so far the cultures are negative. Chest x-ray continues to show evidence of bilateral pleural effusions and fluid volume overload. Ultrasound on 08/25/2019 of the right chest reveals a 12.0 cm pocket #2. Suspect aspiration pneumonia. #3. MSSA bacteremia #4. Acute kidney injury, improving. Secondary to acute sepsis. #5. Acute sepsis, and acute lactic acidosis on presentation, improved #6. Chronic psychiatric disorder/bipolar disorder. #7. Dyslipidemia. #8. Benign essential hypertension. #9. Shock liver, improved . #10. Acute rhabdomyolysis, resolved #11. Pulmonary hypertension. #12. Staph aureus septicemia, MSSA. #13. Hyperchloremic hypernatremia secondary to diarrhea and intravascular volume depletion. Improved with D5W. #14. Acute hepatic/metabolic encephalopathy, improved #15. Severe generalized weakness, critical illness polyneuropathy #16. Hypernatremia likely related to free water deficit, improved Plan: The patient was seen and evaluated by Dr. Crenshaw Chest x-ray and labs reviewed Ultrasound of the chest reveals a 12.0 cm pocket on the right She did receive his Eliquis this morning, now placed on hold Possible thoracentesis in a.m. Continue to encourage increased use the incentive spirometer Titrate down the FiO2 as tolerated Increase his activity as tolerated Med/surg overflow We will continue to follow and make further recommendations based on his clinical status I, the cosigning physician, performed a history & physical examination of the patient. Lungs sounds with bilateral crackles in the posterior bases right greater than left. Maintaining good O2 saturations in the 90s on 6L per minute per nasal canula. I discussed the assessment and plan of care with my nurse practitioner, Rochelle Galvan. I attest to the above note as dictated by her.
--- NOTE | 2019-08-25 19:53 | PN ---
PROGRESS NOTE DATE OF SERVICE: 08/25/2019 REASON FOR FOLLOWUP: MSSA bacteremia and aspiration pneumonia. INTERVAL HISTORY: Patient is currently afebrile, has been breathing comfortably. Denies having any chest pain or shortness of breath. Occasional cough. No nausea, vomiting. No abdominal pain. No diarrhea. PHYSICAL EXAMINATION: Blood pressure 132/76, pulse of 70. Temperature 97.9. He is 90% on 2 L nasal cannula. General description is a middle-aged male up in the bed in no distress. Respiratory system: Unlabored breathing, decreased breath sounds at bases. No wheeze. HEART: S1, S2. Regular rate. ABDOMEN: Soft, no tenderness. LABS: Hemoglobin 9.1, white count 9.4, BUN of 20, creatinine 0.46. DIAGNOSTIC IMPRESSION AND PLAN: Patient with MSSA bacteremia. Source is aspiration pneumonia for which the patient is currently at the end of his antibiotic therapy. He has pleural effusion for possible thoracocentesis tomorrow. Monitor clinical course closely. Continue supportive care. MMODL / KYLEN: [id number] /
[2019-08-25] MEDS ORDERED: ALPRAZolam 0.25 MG TAB PO STA ×2 (23:22→23:31)
[2019-08-25 23:46] LABS: Basophils % (A) 0 %; Eosinophils # (A) 0.1 k/uL (0-0.7); Eosinophils % (A) 1 %; HCT 28.5 % (39.0-53.0); Hypochromasia Moderate; Lymphocytes # (A) 1.4 k/uL (1.0-4.8); Lymphocytes % (A) 13 %; MCH 26.7 pg (25.0-35.0); MCHC 31.4 g/dL (31.0-37.0); MCV 84.9 fL (80.0-100.0); Mean Platelet Volume 6.4; Monocytes # (A) 0.9 k/uL (0-1.0); Monocytes % (A) 8 %; Neutrophils # (A) 7.9 k/uL (1.3-7.7); Neutrophils % (A) 75 %; Platelet Count 556 k/uL (150-450); RBC 3.36 m/uL (4.30-5.90); RDW 15.6 % (11.5-15.5); WBC 10.5 k/uL (3.8-10.6)
[2019-08-25 23:59] LABS: ALT 16 U/L (4-49); AST 26 U/L (17-59); African American GFR (CKD) >90 (>60 ml/min/1.73 sqM); Albumin 2.8 g/dL (3.5-5.0); Alkaline Phosphatase 89 U/L (38-126); Anion Gap 8 mmol/L; Blood Urea Nitrogen 18 mg/dL (9-20); Calcium 8.3 mg/dL (8.4-10.2); Carbon Dioxide 30 mmol/L (22-30); Chloride 92 mmol/L (98-107); Glucose 97 mg/dL (74-99); Magnesium 1.4 mg/dL (1.6-2.3); Non-African American GFR(CKD) >90 (>60 ml/min/1.73 sqM); Potassium 4.2 mmol/L (3.5-5.1); Sodium 130 mmol/L (137-145); Total Bilirubin 0.3 mg/dL (0.2-1.3); Total Protein 7.3 g/dL (6.3-8.2)
[2019-08-26] MEDS: HYDROmorphone 1 MG/ML 1 ML SYRINGE IVP PRN ×4 (00:32→22:01)
[2019-08-26] MEDS: oxyCODONE-APAP 5-325MG 1 EACH TAB PO PRN ×4 (00:37→18:25)
--- NOTE | 2019-08-26 02:29 | P.PN ---
Subjective Progress Note Date: 08/25/19 Principal diagnosis: Acute hypoxic and hypercapnic respiratory failure secondary to sepsis from a staphylococcal bacteremia possible COPD exacerbation Patient is admitted for acute hypoxic and hypercapnic respiratory failure which was believed to be secondary to Covid 19 pneumonia patient is presently on FiO2 of 60%. Patient does have related troponin by highly elevated be high d-dimer is of which patient is on anti-correlation dose of the Lovenox. Patient scored 19 is pending patient has chest x-ray findings consistent with the pulmonary edema or atypical pneumonia or Covid 19 pneumonia along with the significant transaminitis elevated highly elevated LDH highly elevated. Ferritin and significant lymphopenia ration continues to have fever. Patient also has acute renal failure secondary to possibly acute tubular necrosis patient is on sodium bicarbonate and D5 because of hyperkalemia. 08/07/2019 Patient the white blood cell count went up to 17,000. His blood cultures are positive for staph aureus we'll repeat the blood cultures tomorrow. Patient liver enzymes are elevated because of shock liver ultrasound did not show significant abnormality. Patient had an elevated ammonia yesterday which is actually better now after lactulose, patient is off pressors. Patient remains on amiodarone. Computed tomography scan of the brain did not show any signif icant abnormality patient Covid 19 is negative patient remains on cefepime and vancomycin. Primary source is probably lung. Patient has fairly good urine output at 400 mL per hour on volume control ventilation set up respiratory rate of 28 total volume of 450 PEEP of 15 episode of 50% patient's hypercapnic respiratory failure improved and hypoxic respiratory failure improved patient has pH of 7.36 pCO2 of 37 08/07/2028 patient doesn't have any significant clinical improvement remains bacteremic repeat blood cultures are being obtained for today and tomorrow as well. Patient has staph aureus in the blood patient probably will need the transesophageal echocardiogram. Patient is off sedation but is not arousable yet because of which neurology is evaluating the patient and patient is getting EEG patient remains on Vanco mycin cefepime was switched to Zosyn because of concern for aspiration patient aspirin cultures are positive for staph aureus and E. coli along with the species infectious disease is following the patient as well. 08/09/2019 She is still the remains is severely encephalopathic and it and the just withdrawing from painful stimuli off sedation for about 2 days. Patient has severe toxic and metabolic encephalopathy patient is mildly alkalotic patient's present tidal volume is 450 and set up respiratory rate was Down now and patient is breathing over the ventilator and is breathing at around 24/m on an average. FiO2 of 50% PEEP of 10. Patient liver enzymes are bit better patient remains on Zosyn and vancomycin probably vancomycin can be discontinued as patient has MSSA in the blood cultures. Infectious disease is following the patient. Patient white blood cell count remains high patient eventually will need a BRENDA to rule out endocarditis, will plan on this if he has some response on the antibiotics and less encephalopathic and if there is any improvement 08/10/2019 No significant change in his clinical condition including his mental status which it has not improved at patient is hyponatremic because of IV fluids patient is on D5 water now because of hypernatremia and hyperchloremia. Patient remains in the same vent settings as as today remains bacteremic prognosis is extremely poor. Tomorrow we'll discuss with the family regarding overall goals of care. Patient is presently not on pressor support serum creatinine remains stable patient is on amiodarone for atrial fibrillation patient will need repeat blood cultures again tomorrow patient is having thick secretions from the endotracheal to. Patient is presently on Zosyn and vancomycin, rifampin was added patient was started on daily. 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 There is no chance of reasonable neurological recovery she wants to make him comfort care at that time. Patient remains on clevidipine. Patient last 2 blood cultures are negative. 08/11/2022 Patient is still on ventilator support patient the blood cultures are negative so far his bacteremia secondary to pneumonia. Patient is bit more responsive and response to 2 painful stimuli. White blood cell count started improving patient overall has some improvement has good urine output. 08/13/2019 Patient has significant improvement competitors. Patient is much more awake will undergo repeat cultures tomorrow 08/14/2019 Patient is bit more awake appears to have been improving patient will undergo weaning trial later today 08/15/2019 Patient is bit alkalotic today patient failed a weaning trial patient remains on ceftezole and then clindamycin. Patient is still having quite a few secretions now patient is on Alesse sedation patient respiratory than went has come down to 12 because of his respiratory alkalosis. 08/16/2019 patient is currently on mechanical ventilator.she underwent bronchoscopy and bronchoalveolar lavage today. Follow-up culture reports. Patient is arousable andfollow simple commands. Plan for weaning from ventilator today. Patient remains afebrile. Currently on heparin drip due to history of atrial fibrillation. currently on antibiotics the form of cefazolin and clindamycin. Laboratory data reviewed. Pulmonary is on board. 08/17/2019 Patient was successfully extubated yesterday. Currently on oxygen at 4 L via nasal cannula. Patient still drowsy but able to follow simple commands and open his eyes. Currently on Lasix and Diamox. Patient will be started on oral diet after bedside swallow evaluation. Patient is afebrile. Continued on antibiotics the form of cefazolin and clindamycinfor staph aureus bacteremia. Blood cultures have been negative so far. chest x-ray showed continued changes ofCHF. 08/18/2019 Patient is currently awake alert oriented x3. But lethargic and has been having generalized weakness likely due to myopathy. PT OT may be consulted. Patient was started on clear liquid diet will be advanced. Tolerating oral diet. Patient has been afebrile. Lasix was changed to by mouth as well. Chest x-ray today showed improving changes of pulmonary edema. Patient remained antibiotics in the form of cephalosporin and clindamycin. 08/19/2019 Patient is currently in the MICU. Awake alert and oriented. Currently on BiPAP machine. Feels generally weak and able to follow simple commands. Physical therapy is following. Chest no organisms. Increasing diffuse bilateral airspace disease likely due to pulmonary edema with persistent moderate pleural effusions. Patient is being continued Lasix 40 mg daily. bronchoalveolar lavage cultures negative so far. Initial sputum culture showed staph aureus, E. coli and [place]. Patient remain ed on antibiotics. 08/20/2019 Patient is currently remained in the MICU. Currently on oxygen via nasal cannula. Was BiPAP yesterday. Patient still otherwise very weak and lethargic. Awake alert oriented x3 otherwise. Bilateral basilar crackles in the lung exam. Patient was given a dose of IV Lasix last night. PT OT is following. Still requiring 2 person assistance for ADLs. Patient is being continued antibiotics and breathing treatments. Pulmonary is following. Tolerating oral diet. 08/21/2019 Patient is currently in the intensive care unit. Lying in the bed comfortably. Awake alert oriented x3. No acute distress. Oxygen saturations in the 90s on 5 L via nasal cannula. Patient did not require BiPAP last night. Chest x-ray showed evidence of fluid overload. BAL fluid cultures showed no growth. Laboratory data showed BUN 22 and creatinine 0.56, hemoglobin 8.3 and sodium lev el 133. Calcium 8.1. Patient has been afebrile. Continued on PT OT. Otherwise patient is on antibiotic at home cefazolin and clindamycin. Anticoagulation with Eliquis. Pulmonary is following. Tolerating oral diet slowly. 08/22/2019 Patient is currently awake alert and oriented 3. Tolerating oral diet. Currently on oxygen at 4 L with another cannula. BAL fluid cultures showed no growth. Otherwise patient is participant in physical therapy. Next and chest x-ray showed evidence of fluid volume overload with moderate bilateral pleural effusions. No significant change compared to previous. Patient is currently on oral Lasix. Otherwise laboratory data showed a basic count 8.7, hemoglobin 8.4, potassium 3.5, creatinine 0.54 Pulmonary is following. Currently maintained antibiotics in the form of cefazolin and clindamycin. 08/23/2019 Patient is currently awake alert and oriented 3. Still requiring oxygen with another cannula. Chest x-ray showed slight improvement but still having fluid overload. Part spreading in physical therapy. Able to stand today with PT. Patient is on anticoagulation for atrial fibrillation paroxysmal. Patient is also being continued on antibiotics ceftezole and clindamycin due to MSSA bacteremia and MSSA, E. coli pneumonia. Pulmonary is following. 08/24/2019 Patient is currently more awake and oriented. Able to participate in physical therapy and was able to sit in the chair with physical therapy. Otherwise still requiring 4 L oxygen via nasal cannula. Repeat chest x-ray showed no significant interval change in the appearance of the chest. Patient is being continued on IV diuresis. Antibodies in the form of cefazolin. Gentamicin has been discontinued. Patient has been afebrile. BAL fluid cultures showed no growth. No chest pain or worsening shortness of breath. Tolerating oral diet slowly. Otherwise laboratory data showed no loose 8.7, hemoglobin 8.4, sodium 1:30, potassium 3.3 and creatinine level is 0.45 08/25/2019 currently patient is in the MICU. No complaints of chest pain. Patient is still lethargic but minimal improvement. Resting comfortably in the bed. Currently requiring oxygen at 6 L via nasal cannula high flow. Patient is being continued on Lasix 40 mg every 8 hourly. Chest x-ray showed worsening opacity of the right hemithorax. There is left basilar airspace disease. Bilateral effusions greater than left. Ultrasound of the right chest today showed 12 cm pocket. Laboratory data showed sodium 131, potassium 3.8, and creatinine level of 0.46 Bilateral leg swelling is improving. Pulmonary is planning for thoracentesis. Eliquis is on hold. Patient is otherwise continuing antibiotics in the form of cefazolin. Current medications reviewed. All inpatient medications were reviewed and appropriate changes in these medications as dictated in the interval history and assessment and plan. Objective - Vital Signs Vital signs: Vital Signs Temp 98.7 F 08/25/19 16:00 Pulse 86 08/25/19 19:15 Resp 18 08/25/19 16:00 BP 122/62 08/25/19 16:00 Pulse Ox 94 L 08/25/19 16:00 Intake & Output 08/25/19 08/25/19 08/26/19 06:59 18:59 06:59 Intake Total 290 1160 60 Output Total 2450 1390 1020 Balance -2160 -230 -960 Weight 92.5 kg Intake: IV 290 200 60 Sodium Chloride 0.9% 500 240 100 60 ml 500 ml @ 20 mls/hr IV .Q24H [facility] Rx#:[id number] ceFAZolin 2 gm In Sodium 50 100 Chloride 0.9% 50 ml @ 100 mls/hr IVPB Q8HR [facility] Rx# :[id number] Oral 960 Output: Urine 2450 1390 1020 Other: Voiding Method Indwelling Catheter Indwelling Catheter ABP, PAP, CO, CI - Last Documented Arterial Blood Pressure 151/56 - Exam PHYSICAL EXAMINATION: GENERAL: Patient is Awake alert and oriented x3. Generalized weakness and lethargy. HEENT: Pupils are round and equally reacting to light. EOMI. No scleral icterus. No conjunctival pallor. Normocephalic, atraumatic. No pharyngeal erythema. No thyromegaly. CARDIOVASCULAR: S1 and S2 present. No murmurs, rubs, or gallops. PULMONARY: Scattered rhonchi and crackles., no wheezing. ABDOMEN: Soft, nontender, nondistended, normoactive bowel sounds. No palpable organomegaly. MUSCULOSKELETAL: No joint swelling or deformity. EXTREMITIES: No cyanosis, clubbing, 1+pedal edema. NEUROLOGICAL: Gross neurological examination did not reveal any focal deficits. SKIN: No rashes. - Labs CBC & Chem 7: 08/25/19 23:28 08/25/19 23:28 Labs: Abnormal Lab Results - Last 24 Hours (Table) 08/25/19 08/25/19 Range/Units 05:28 05:28 RBC 3.34 L (4.30-5.90) m/uL Hgb 9.1 L (13.0-17.5) gm/dL Hct 28.1 L (39.0-53.0) % Plt Count 540 H (150-450) k/uL Sodium 131 L (137-145) mmol/L Chloride 95 L (98-107) mmol/L Creatinine 0.46 L (0.66-1.25) mg/dL Calcium 8.0 L (8.4-10.2) mg/dL Assessment and Plan Assessment: Acute hypoxic and hypercapnic respiratory failure secondary to sepsis from a staphylococcal bacteremia possible COPD exacerbation. patient is currently extubated. -persistent bacteremia with MSSA. Patient patient was switched to cefazolin. repeat cultures have been negative. -Sepsis shock shock resolved . secondary to staphylococcal pneumonia, patient has persistent bacteremia. suspected aspiration pneumonia. -MSSA and E. coli pneumonia - possible acute CHF with diastolic dysfunction -Bilateral pleural effusion. -Severe toxic encephalopathy from sepsis and septic shock. Improving. -Acute renal failure possibly acute tubular necrosis patient creatinine improved with IV fluids -Lactic acidosis secondary to sepsis Hypernatremia and hyperchloremia secondary to normal saline which was discontinued and patient received Lasix yesterday. -Hypertension -Hyperlipidemia next and heparin hypertension -Elevated liver enzymes probably secondary to shock liver. -Hepatic encephalopathy: Ammonia level is bit better now. -Troponin leak secondary to myocardial injury from sepsis. -Severe pulmonary hypertension -Generalized weakness and fatigue likely due to myopathy. Time with Patient: Greater than 30
[2019-08-26] MEDS: MAGNESIUM SULFATE-D5W PMX 1 GM in DEXTROSE/WATER 1 100ML.BAG IVPB SCH ×3 (04:37→08:34)
[2019-08-26 06:30] LABS: INR 1.3 (<1.2); Partial Thromboplastin Time 28.5 sec (22.0-30.0); Prothrombin Time 12.8 sec (9.0-12.0)
[2019-08-26] MEDS: PANTOPRAZOLE 40 MG TABLET PO SCH (06:31)
--- NOTE | 2019-08-26 06:55 | XR ---
EXAMINATION TYPE: XR chest 1V portable DATE OF EXAM: 08/26/2019 CLINICAL HISTORY: Difficulty breathing progress study. TECHNIQUE: Single AP portable upright view of the chest is obtained. COMPARISON: Chest x-ray from one day earlier and older studies. FINDINGS: Metallic hardware from left shoulder arthroplasty is partially imaged similar to prior. Pe rsistent right greater than left bilateral opacities silhouetting the hemidiaphragms the majority of heart borders. Stable mild cardiomegaly and central vascular congestion. Slight underlying scoliotic curvature redemonstrated. Right-sided effusion extends to the left lung apex similar to most recent p rior. IMPRESSION: Mild cardiomegaly with central vascular congestion and small to moderate size right great er than left pleural effusions with associated bibasilar atelectasis and/or infiltrate are all redemo nstrated. No significant change from one day earlier.
[2019-08-26] MEDS: IPRATROPIUM-ALBUTEROL 3 ML NEB INHALATION SCH ×4 (07:15→21:40)
[2019-08-26] MEDS: APIXABAN 5 MG TAB PO SCH (08:22)
[2019-08-26] MEDS: AMIODARONE 200 MG TAB PO SCH ×2 (08:32→21:04)
[2019-08-26] MEDS: METOPROLOL TARTRATE 50 MG TAB PO SCH ×3 (08:32→21:03)
[2019-08-26] MEDS: FUROSEMIDE 10 MG/ML 4 ML VIAL IV SCH ×3 (08:33→23:51)
[2019-08-26] MEDS: ASPIRIN 81 MG PO SCH (09:00)
[2019-08-26] MEDS: SODIUM CHLORIDE 0.9% 500 ML 500 ML IV SCH (11:15)
--- NOTE | 2019-08-26 11:38 | CT ---
EXAMINATION TYPE: CT chest wo con DATE OF EXAM: 08/26/2019 COMPARISON: None HISTORY: Right lung pneumonia and effusion, hypoxic respiratory failure CT DLP: 604 mGycm, Automated exposure control for dose reduction was used. CONTRAST: Performed injected with 0 mL of Isovue 300. TECHNIQUE: Axial images were obtained at 5 mm thick sections. Reconstructed images are reviewed on [employer] computer in the coronal plane. FINDINGS: Portion of the thyroid visualized is normal. There is compressive atelectasis at the bilateral lung bases. Moderately large right pleural effusion and a moderate left pleural effusion is present. Some patchy infiltrates in the periphery of the left upper lung field. These are nonspecific. Infecti ous etiology should be considered. Consider possible atypical pneumonia such as coronavirus. Pulmonar y edema could be considered. There is a 1.2 cm lymph node in the pretracheal space. 1.0 cm right peribronchial node is present. A few additional smaller lymph nodes are present. The ascending aorta diameter at the level of the main pulmonary artery is 3.9 cm. The main pulmonary artery diameter at the bifurcation is 3.[address] sections are obtained through the upper abdomen. Abdomen is essentially unremarkable. IMPRESSIONS: 1. Large right and moderate left pleural effusion with adjacent compressive atelectasis. 2. Patchy peripheral groundglass opacities which could be related to atypical pneumonia. 3. Enlarged mediastinal lymphadenopathy
[2019-08-26] MEDS: acetaZOLAMIDE 250 MG TAB PO SCH (12:15)
[2019-08-26] MEDS: FUROSEMIDE 40 MG TAB PO SCH (12:15)
--- NOTE | 2019-08-26 15:10 | P.PN ---
Subjective Progress Note Date: 08/26/19 Principal diagnosis: Acute hypoxic and hypercapnic respiratory failure second to aspiration pneumonia 62-year-old male patient who was brought into the emergency department today unresponsive and profoundly hypoxic. The patient was in acute hypoxic respiratory failure. Initial pulse ox was in the mid 30s. Apparently he was not also communicating or responding. He was apparently awake and alert on the morning prior to him coming to the hospital according to the landlord. The landlord noted that the patient was appearing ill and called EMS. Upon EMS arrival, the patient was found to be obtunded. He had a fever of 10 1F. He was found to be hypoxic, brought into the emergency room he was found to be tachycardic and hypoxic with was placed on supplemental oxygen without any benefit and ultimately the patient was intubated and placed on a mechanical ventilator. COVID 19 is suspected. The patient was placed on the opposite isolation. The patient had the appropriate nasal swabs. Chest x-ray showed bilateral airspace disease consistent with pneumonia in addition to interstitial pneumonitis. ET tube was around 3.7 cm above the mario. NG tube was extending into the left abdomen. There was a right upper lobe consolidation noted and a tiny right-sided pleural effusion. No evidence of any pneumothorax. There was bilateral infiltrates and coarse interstitium and a prosthetic left shoulder. The patient has a white cell count of 4.9. He had some lymphopenia. His platelet counts is no within normal limits. The blood gases was done on 100% nonrebreather showed a pH of 7.17 with a pCO2 of 66 and pO2 of 45. The patient also had an acute kidney injury with a creatinine of 1.65. Epigastric level was at 3.1. The ALT is at 1106 with an ammonia level of 146 and a bilirubin of 0.5 and an albumin of 4.1. The serum alcohol was negative and the patient has negative salicylates and acetaminophen. Influenza screen has been negative. Covid 19 analysis still pending for now. This patient lives with a sister in a house and he collects Social Security disability. He has had issues with mental health and the patient has been dealing with bipolar disorder and chronic insomnia of many years duration. He has also chronic anxiety disorder. No history of any previous suicidal ideation or intent. No delusions or hallucinations based on recent psychiatric evaluation that was in the hospital. On today's evaluation of 62,020 the patient is being seen in follow-up in the intensive care unit. Noted the patient is intubated on a mechanical ventilator and is suspected to have Covid 19. He is afebrile on today's evaluation. He remains on a mechanical ventilator. He is sedated with propofol running at 20 mg per KG per minute. He was given a total of 5 L of IV fluid as the patient was hypotensive and currently the fluid is running at 75 mL an hour of normal saline. He remains on norepinephrine infusion at 0.08 mg per KG per minute. He remains on a mechanical ventilator. His assist-control mode at the rate of 28 with a tidal volume of 450 and FiO2 of 60% with a PEEP of 15. His blood gases showed a pH of 7.12 with a pCO2 of 58 and pO2 of 187. This was done and FiO2 of 100%. Otherwise, the patient has blood abnormalities it is consistent with Covid 19 infection. He has a rhabdomyolysis with a CPK level of 6114. He has also transaminitis with a AST of 3354, ALT of 1962, and his LDH level is at 8367. His creatinine is at 1.2, which is up from a baseline of 1.65 with fluid resuscitation. His current minute ventilation is 13 L. I made recommendations to keep the same vent setting. Based on the blood on of some non-anion gap metabolic acidosis, and with recommendations to start the patient on bicarb infusion and addition to 2 A of IV bicarb pushes. He was having temperatures throughout the night with temperature maximum 100.8. Current temperature is 99.6. He'll be started on enteral feeding for nutritional support. Covid 19 evaluation is still pending for now. On today's evaluation of 08/07/2019 and seeing this patient for a follow-up. The patient has sedated with propofol. He was given a sedation holiday yesterday and his neurologic exam was suboptimal as the patient did not show adequate neurologic recovery. Based on that, a CAT scan of the brain was done and the CAT scan of the brain was negative for any acute abnormalities. Noted the patient was profoundly hypoxic and at time of admission to the hospital and there is a suspicion for hypoxic encephalopathy. Contrary to my expectations, the patient checked negative for Covid 19 infection. The blood culture came back positive for staph aureus. Currently is on a combination of cefepime and vancomycin. The patient was resuscitated with more than 5 L of normal saline and the patient is also requiring some pressors for hemodynamic support and levo fed was started and 8 on was placed on hold as of 5:00 this morning. Urine output in the order of 40 mL an hour. In terms of sedation, the patient is on propofol at 20 g per KG per minute. Note that the patient had issues with a significant leak around his orotracheal tube. This was replaced yesterday by CASE WORK [employer]IDE without any major difficulties. This morning, he remains on a VC plus mode with a rate of 28 and a tidal volume of 450 and a nighttime of 1 second with a PEEP of 15 with an FiO2 of 50%. Blood gases from today showed a pH of 7.36 with a pCO2 of 37 and pO2 of 92. Chest x-ray showing diffuse bilateral pulmonary infiltrates. His cardiac rhythm is still in atrial fibrillation. He is on amiodarone maintenance at 0.5 mg per minute. The patient has a creatinine of 1.5. There is still evidence of transaminitis with elevation of the AST and ALP and both are improving. LDH level is elevated at 5738. CPKs improving at 2431. C-reactive protein is elevated at 622. Note that the LDH is on the decline, CPKs on the decline on today's evaluation. LFTs are also improving. On 08/08/2019 on seeing this patient for a follow-up. The patient has been off sedation since yesterday. I am not seeing an adequate neurologic recovery in this patient. There may be a component of hepatic encephalopathy in the patient's went into shock liver. Nevertheless, his ammonia is dropping. He is on lactulose. He is producing adequate amount of bowel activity. He is undergoing training the painful stimulation. Pupils are about 3 mm in size and there is C-reactive to light. There is a very weak cough and a gag. Absolutely no response to deep painful stimulation. No seizure activity has been noted. Neurology will be consulted on the case. EEG will be ordered. Meanwhile, the patient is clearly becoming a case of possible aspiration staphylococcal pneumonia. His blood culture came back positive for staph aureus. His sputum positive for staph. He also has gram-negative bacillus in his sputum which boot turner to be E. coli. For now, the cultures and the blood to be MSSA. The patient was on examination of cefepime and vancomycin. I dropped the cefepime and I u tilized Zosyn to give him better anaerobic coverage as the patient clearly has a history of aspiration. Meanwhile, the Covid test came back negative. The patient remains on a mechanical ventilator. On today's chest x-ray there is worsening over the bilateral pulmonary infiltrates worse on the right. ET tube remains in a good location. The patient remains on an assist-control mode at the rate of 18 with a tidal volume of 450 and FiO2 of 50% with a PEEP of 10. Blood gas showed a pH of 7.46 with a pCO2 of 34 and pO2 of 103. CVP is ranging between 12 and 14. He remains in atrial fibrillation. He is on amiodarone drip maintenance at 0.5 mg per minute. He is also on normal saline at the rate of 75 mL an hour. His age fibrillation is under better control and he is on no pressors. He can tolerate beta blockers. He is having low-grade fever still. The white cell count is up to 22. The shock liver is improving including the AST and ALP level. The LDH level was elevated. The CPKs also improving is down to 2431. His ammonia level is down to 85. His coagulation profile is within normal limits. On 08/09/2019 the patient is being seen in follow-up in intensive care unit. Unfortunately, the patient has been off sedation for more than 24 hours and the patient is still not showing significant neurologic recovery. The patient is not following any specific commands. In fact he is not even withdrawing to deep painful stimulation. No seizure activity has been noted. EEG was done and showed diffuse slowing and it was consistent with severe encephalopathy which could be toxic metabolic encephalopathy versus hypoxic encephalopathy. The patient will be kept off sedation. Meanwhile, the ammonia level is progressively coming down and is down to 58. He continues to have a week cough and gag reflex. The patient remains in atrial fibrillation. The patient remained on assist control mode of ventilation. He is on VC plus mode at the rate of 28 with a tidal volume of 450 and FiO2 of 50% with a PEEP of 10. The blood gases from today shows a component of respiratory alkalosis with a pH of 7.5 with a pCO2 of 36 and pO2 of 71. The white cell count of 23. The patient has developed some hyperchloremic hypernatremia in the sodium level is up to 147 with a chloride of 114. Renal function is stable. The patient is receiving vital high protein at the rate of 52 mL an hour. In terms of atrial fibrillation, I had utilized back the amiodarone drip at 0.5 mg per minute and the patient is also on metoprolol 50 mg by mouth 3 times a day. Heart rate is still slightly tachycardic and will continue the same regimen for now. The patient was given a dose of Lasix yesterday. The patient Is producing better urine output for now. His weight is still up. The CPKs down to 395. The AST is down to 1000. ALT is down to 58. LDH is down to 03/10/2007. Calcium level at 7.1. No other significant issues otherwise over the past 24 hours. He remains on a combination of Zosyn and vancomycin. The blood culture and the sputum culture was positive for MSSA. The sputum culture was positive for E. coli. The chest x-ray still showing rather consolidation worse on the right compared to the left. ET tube remains in a good location. On 08/10/2019 the patient has been approximately 72 hours of sedation. Unfortunately, we do not see any significant neurologic recovery the patient's condition. He is still not responding to any verbal or deep painful stimulation. He remains completely unresponsive. On this morning, I have a mild assist-control mode of ventilation with a VC plus mode at a tidal volume of 450 FiO2 of 50% with a PEEP of 10 and the respiratory rate of 24. His blood gases showed a component of respiratory alkalosis. His pH is at 7.53 with a pC O2 of 39 pO2 of 63. Chest x-ray still showing bilateral pneumonia bilateral airspace disease worse on the right along with cardiomegaly and bilateral pleural effusions. ET tube is in a good location. The patient's white cell count is at 27. The patient is still having episodes of fever. Most recent blood culture from 2 days ago was positive for MSSA and MSSA was also cultured and his lungs and it was cultured also E. coli in his lungs. We are still thinking that this was an aspiration pneumonia. Shock liver, his LFTs are nearly normalized, severe has also dropped and ammonia level is being monitored is still elevated at 83. The lactulose was held as the patient was having liquidy stool and the patient had become also hyperchloremic and the sodium level is up to 149. He is receiving free water supplements with NG for now. He is also on vital high protein. In terms of his atrial fibrillation, rate is under better control with a combination of amiodarone maintenance of 0.5 mg per minute and Cardizem drip at 10 mg an hour. The patient is also on IV heparin. The active issue for now is his altered mentation. On 08/11/2019, I'm seeing the patient for a follow-up in intensive care unit. His been off sedation for the past 92 hours. On today's evaluation that is some slight grimacing upon very deep painful stimulation and upon pinching on his upper chest. For the most part he remains unresponsive. No seizure activity. Shock liver has recovered. Ammonia level is on the decline. I started the patient on rifixamine 550 mg by mouth twice a day yesterday and ammonia level is down to 45. I suspect a component of hypoxic encephalopathy although the possibility of metabolic encephalopathy cannot be completely ruled out. He is on a mechanical ventilator. No change in the vent setting. No changes in the x-ray findings as the patient has extensive airspace disease bilaterally more so on the right lower lobe. On the ventilator, the patient is on a VC plus mode with a tidal volume of 450 and FiO2 of 50% with a PEEP of 10 and tidal volume of 450 with a rate of 16. The patient's blood gas showed a pH of 7.52 with a pCO2 of 39 and pO2 of 67. On and off he was still having fever yesterday. Repeat blood cultures were sent. He remains on examination Zosyn and vancomycin. He is tolerating his enteral feeding for nutritional support. Is on IV heparin drip regarding his atrial fibrillation. He remains on amiodarone drip and oral metoprolol for rate control. He is also started on Cleviprex which is running at 2 mg an hour for tighter blood pressure control. The active issue remains his altered mentation with a possibility of him having hypoxic encephalopathy with the details as mentioned above. Patient was reevaluated today on 08/12/19, remains on mechanical ventilation, his ventilator settings are assist control rate 16 volume control plus at 450 FiO2 at 50% and PEEP of 10. ABG showed a pO2 of 79 pCO2 of 39 pH of 7.52. Chest x- ray continues to show bilateral pleural effusions, and by basilar space disease, hence I recommended ultrasound to evaluate for possible thoracentesis if the effusion isn't large enough to be drained. However the ultrasound showed minimal pleural effusions bilaterally, insufficient for thoracentesis. Patient remains on Zosyn and vancomycin, and he hasn't MSSA bacteremia, sputum is positive for E. coli and staph aureus. Neurologically the patient is about the same, however the only change noted today is the fact that the patient tries to open his eyes and grimacing upon deep painful stimuli. Remains off narcotics and sedatives. WBC count is up to 25.3 today slightly improved compared to yesterday. Basic metabolic profile is basically normal and his BUN is improving down to 38 creatinine is 0.55. Liver enzymes are steadily improving. Ammonia is 60 today. It was as high as 146 about a week ago remains on rifaximin. Reevaluated today on, patient remains in the ICU, intubated and mechani raul ventilated. Yesterday the patient had significant agitation and he had to be placed back on propofol. This morning the propofol was discontinued, and the patient seems to be more responsive to stimuli/verbal stimuli patient is opening his eyes, wiggling his toes, seems to be slow but at least the best I have seen him so far. Hence I kept the propofol off, and I will give the patient a chance to go on a weaning trial if possible. He is not quite ready to start weaning but we will continue to hold propofol and address hourly today for possible placement on pressure support and CPAP. Presently the patient is on mechanical ventilation with assist control rate of 16, volume is 450 FiO2 dropped down from 60% to 50% and his PEEP was decreased to 8. His ABG this morning showed a pO2 of 124 pCO2 of 48 pH of 7.44 patient is on propofol which is presently on hold. He is on clindamycin and for his MSSA bacteremia. He is on enteral tube feeding. Chest x-ray continues to show small areas of pneumonia bilaterally, and possibly a small right sided pleural effusion not large enough to consider thoracentesis as noted on ultrasound On 08/14/2019 patient seen in follow-up, in the intensive care unit, he remains intubated, on mechanical ventilator, on assist control mode of ventilation with FiO2 of 50%. This morning blood gases showed pO2 of 112, pCO2 45, and pH of 7.48. IV 0.9 normal saline at a rate of 10 ML per hour, heparin per weight- based protocol, and Diprivan has been on hold. Patient is lethargic although she is waking up and follow commands, wiggling toes on command. Appears to be in no acute distress, today's chest x-ray has been reviewed showing diffuse pleural parenchymal changes consistent with pulmonary edema or ARDS. Patient continues on Kefzol and Clindamycin for MSSA and E. coli pneumonia and bacteremia, follow-up blood cultures have been negative. Patient has been afebrile, hemodynamically stable, not on any vasopressors, today's labs have been reviewed, leukocytosis is down trending, WBC is down to 18.7, hemoglobin is 9.7, sodium is 142, potassium is 3.3, chloride is 108, CO2 32, BUN is 37 and creatinine 0.53. Patient in sinus rhythm, he remains on oral amiodarone, and heparin infusion for anticoagulation. Diuretics with Lasix 40 mg every 12 hours On 08/19/2019 patient seen in follow-up in intensive care unit. Patient was successfully weaned and extubated on 08/16/2019, he is currently on 6 L of oxygen the pulse ox of 94%, afebrile, hemodynamically patient is stable, patient is on IV fluids 0.9 normal saline at a rate of 10 ML per hour, he is very generally weak, he can hardly move his fingers. Patient is awake, oriented to self and the place, he is following command. He denies any acute distress, lung sounds reveal scattered rhonchi bilaterally, patient is able to cough and expectorate yellowish colored phlegm at times. Physical therapy has been working with the patient however patient is extremely weak, and has only been able to sit in the chair position in bed. Upper and lower extremities are positive for 1+ edema, patient remains on daily dose of oral Lasix at 40 mg daily. He is in -150 ML fluid balance over the last 24 hours. We'll give the patient additional dose of IV Lasix 60 mg this morning, this morning patient is requiring increasing amount of oxygen, and he was placed on BiPAP with pressures of 12 and 5 and 50%. This morning's chest x-ray shows increasing diffuse bilateral airspace disease likely related to pulmonary edema with persistent moderate pleural effusions. Patient did have a bedside bronchoscopy with bronchoalveolar lavage on 08/16/2019, and Gram stain has shown no organisms. H is sputum culture from 08/05/2019 was positive for MSSA, and E. coli, and blood cultures from 08/05/2019, and 08/07/2019 were positive for MSSA. Patient is on clindamycin and For Antibiotic Coverage. He is currently in sinus rhythm, he is on Eliquis for paroxysmal atrial fibrillation and oral Cordarone. On 08/20/2019 patient seen in follow-up in intensive care unit, yesterday he required placement on BiPAP later to his increased dyspnea and hypoxia. He tolerated it well, this morning she is on 8 L per high flow nasal cannula with a pulse ox of 94-97%, mildly dyspneic with conversation, but no acute distress, BiPAP was removed at 2100 last night. Patient was given additional Lasix yester day, and he is in -1.2 L over the last 24 hours. Still has some 1+ pitting edema involving upper and lower extremities. Still is very weak, and unable to lift up his arms off the bed. Lung sounds reveal scattered rhonchi, but less congested on today's exam. he is on full liquid diet, but requires intensive assistance with ADLs including feeding. Physical therapy is on consult and is following with the patient. Low-grade fevers with a T-max 99.0F over the last 24 hours, hemodynamically stable, IV fluids included D5W at a rate of 50 MLS per hour. We will switch to 0.9 normal saline at a 20 ML per hour, patient is on oral Eliquis for paroxysmal atrial fibrillation, and currently remains in sinus rhythm. Remains on Diamox. On 08/26/2019 patient seen in intensive care unit, he is awake and alert, in no acute distress, he is oriented 3, likely on 6 L of oxygen the pulse ox of 88-92%, no worsening dyspnea, he remains weak, however stronger compared to last week. He is participating with physical therapy, still unable to feed himself, still requires extensive assistance with all ADLs including feeding bathing and toileting, afebrile. Hemodynamically patient is stable, remains in sinus mechanism. 0.9 normal saline at a rate of 20 ML per hour, antibiotic coverage in the form of cefazolin. Remains on IV Lasix at 40 mg every 8 hours, and he is in -770 ML fluid balance over the last 24 hours. Has some residual mild upper and lower extremity edema, lung sounds reveal diminished breath sounds at the bases, no rhonchi, no wheezing. Today's chest x-ray shows mild cardiomegaly with central vessel congestion and small to moderate-sized right greater than left pleural effusions. Ultrasound the chest yesterday showed a right pleural effusion of 12.0 cm pocket. Objective - Vital Signs Vital signs: Vital Signs Temp 98 F 08/26/19 14:56 Pulse 67 08/26/19 14:56 Resp 18 08/26/19 14:56 BP 138/79 08/26/19 14:56 Pulse Ox 88 L 08/26/19 14:56 Intake & Output 08/25/19 08/26/19 08/26/19 18:59 06:59 18:59 Intake Total 1160 1780 598 Output Total 1390 2320 700 Balance -230 -540 -102 Weight 93.2 kg Intake: IV 200 280 180 Magnesium Sulfate-D5w Pmx 100 50 1 gm In Dextrose/Water 1 100ml.bag @ 100 mls/hr IVPB Q1H [facility] Rx#: [id number] Sodium Chloride 0.9% 500 100 130 80 ml 500 ml @ 20 mls/hr IV .Q24H [facility] Rx#:[id number] ceFAZolin 2 gm In Sodium 100 50 50 Chloride 0.9% 50 ml @ 100 mls/hr IVPB Q8HR [facility] Rx# :[id number] Oral 960 1500 418 Output: Urine 1390 2320 700 Other: Voiding Method Indwelling Catheter Indwelling Catheter Indwelling Catheter ABP, PAP, CO, CI - Last Documented Arterial Blood Pressure 151/56 - Exam GENERAL EXAM: Awake and alert, oriented to self and place 64-year-old white male, on 6 L of oxygen and the pulse ox of 92%, extremely weak, his voice is weak, patient is answering questions appropriately, on command, but unable to lift feet off the bed, and able to lift his head or his arms off the HEAD: Normocephalic/atraumatic. EYES: Normal reaction of pupils, equal size. Conjunctiva pink, sclera white. NOSE: Clear with pink turbinates. THROAT: No erythema or exudates. NECK: No masses, no JVD, no thyroid enlargement, no adenopathy. CHEST: No chest wall deformity. Symmetrical expansion. LUNGS: Equal air entry with no crackles, wheeze, rhonchi or dullness. CVS: Regular rate and rhythm, normal S1 and S2, no gallops, no murmurs, no rubs ABDOMEN: Soft, nontender. No hepatosplenomegaly, normal bowel sounds, no guarding or rigidity. EXTREMITIES: No clubbing, no edema, no cyanosis, 2+ pulses and upper and lower extremities. MUSCULOSKELETAL: Muscle strength and tone normal. SPINE: No scoliosis or deformity SKIN: No rashes CENTRAL NERVOUS SYSTEM: Awake and alert, generally weak, 64-year-old white male, on 8 L of oxygen. No focal deficits, tone is normal in all 4 extremities. - Labs CBC & Chem 7: 08/25/19 23:28 08/25/19 23:28 Labs: Abnormal Lab Results - Last 24 Hours (Table) 08/25/19 08/25/19 08/26/19 Range/Units 23:28 23:28 05:59 RBC 3.36 L (4.30-5.90) m/uL Hgb 9.0 L (13.0-17.5) gm/dL Hct 28.5 L (39.0-53.0) % RDW 15.6 H (11.5-15.5) % Plt Count 556 H (150-450) k/uL Neutrophils # 7.9 H (1.3-7.7) k/uL PT 12.8 H (9.0-12.0) sec INR 1.3 H (<1.2) Sodium 130 L (137-145) mmol/L Chloride 92 L (98-107) mmol/L Creatinine 0.57 L (0.66-1.25) mg/dL Calcium 8.3 L (8.4-10.2) mg/dL Magnesium 1.4 L (1.6-2.3) mg/dL Albumin 2.8 L (3.5-5.0) g/dL Microbiology - Last 24 Hours (Table) 08/16/19 09:27 Fungal Culture - Preliminary Bronchial Washings - Random Yeast species Assessment and Plan Plan: Assessment: #1. Acute hypoxic and hypercapnic respiratory failure related to MSSA and E. coli pneumonia and sepsis, requiring intubation and mechanical ventilator support, successfully weaned and extubated on 08/16/2019. Patient had bronchoscopy with BAL on 08/16/2019 and so far the blood cultures are negative #2. Bilateral pleural effusions #3. MSSA bacteremia #4. Acute kidney injury, improving. Secondary to acute sepsis. #5. Acute sepsis, and acute lactic acidosis on presentation, improved #6. Chronic psychiatric disorder/bipolar disorder. #7. Dyslipidemia. #8. Benign essential hypertension. #9. Shock liver, improved . #10. Acute rhabdomyolysis, resolved #11. Pulmonary hypertension. #12. Staph aureus septicemia, MSSA. #13. Hyperchloremic hypernatremia secondary to diarrhea and intravascular volume depletion. Improved with D5W. #14. Acute hepatic/metabolic encephalopathy, improved #15. Severe generalized weakness #16. Hypernatremia likely related to free water deficit, improved Plan: Continue weaning FiO2, patient's down to 6 L of oxygen, no fever or chills, remains on cefazolin for antibiotic coverage, continue IV diuretics, patient is maintaining negative fluid balance. CT of the chest reveals a large right and moderate left pleural effusion with adjacent compressive atelectasis, may consider right-sided thoracentesis, hold oral anticoagulation. Stable for transfer out of intensive care unit to medical surgical floor, no acute events overnight, encourage deep breathing and coughing, physical therapy to continue working with the patient and mobilize the patient I performed a history & physical examination of the patient and discussed their management with my nurse practitioner, Radha Silva. I reviewed the nurse practitioner's note and agree with the documented findings and plan of care. Lung sounds are positive for diminished breath sounds. The findings and the impression was discussed with the patient. I attest to the documentation by the nurse practitioner. Time with Patient: Less than 30
--- NOTE | 2019-08-26 19:43 | PN ---
PROGRESS NOTE DATE OF SERVICE: 08/26/2019 REASON FOR FOLLOWUP: Aspiration pneumonia with MSSA bacteremia. INTERVAL HISTORY: Patient is currently afebrile, has been breathing slightly comfortably. Denies having any chest pain or shortness of breath or any cough. No nausea, vomiting. No abdominal pain or diarrhea. PHYSICAL EXAMINATION: Blood pressure 138/79, pulse of 90, temperature 98. He is 92% on 6 L nasal cannula. General description is a middle-aged male lying in bed in no distress. RESPIRATORY SYSTEM: Unlabored breathing with decreased breath sounds at the base. No wheeze. HEART: S1, S2. Regular rate and rhythm. ABDOMEN: Soft. No tenderness. LABS: INR 1.3. DIAGNOSTIC IMPRESSION AND PLAN: Patient with aspiration pneumonia with methicillin-susceptible Staphylococcus aeruginosa bacteremia. Repeat blood culture has been negative. CT did show right moderate pleural effusion with compressive atelectasis in this patient status post bronchoscopy. Patient is currently covered with cefazolin; to continue while waiting for the repeat blood culture to finalize. Continue with supportive care. MMODL / IJN: [id number] /
--- NOTE | 2019-08-26 22:48 | P.PN ---
Subjective This is a pleasant 64 years old male with multiple medical problems who presents initially with acute hypoxic failure, fever and altered mental status patient was sewn intubated and found to have pneumonia secondary to MSSA and E coli, also patient had acute kidney injury and MSSA bacteremia. Call the test was negative 2. Patient has prolonged course in the ICU, please review the records and previous notes Patient is status post extubation on 08/15. He is more alert and awake. And he is saturating and 90s on 60 to oxygen nasal cannula, breathing at a rate of 18/m. Rest of vitals looks stable. He is alert and awake at more stable. CBC and BMP looks stable, magnesium was low at 1.4, recheck magnesium He remains on cefazolin since 08/21 for persistent bacteremia and pneumonia with MSSA. Also he is on Lasix 40 mg 3 times a day and metoprolol 50 mg 3 times a day. Objective - Vital Signs Vital signs: Vital Signs Temp 99.7 F H 08/26/19 20:00 Pulse 88 08/26/19 21:50 Resp 18 08/26/19 20:00 BP 162/78 08/26/19 20:00 Pulse Ox 90 L 08/26/19 20:00 Intake & Output 08/26/19 08/26/19 08/27/19 06:59 18:59 06:59 Intake Total 1780 716 Output Total 2320 900 Balance -540 -184 Weight 93.2 kg Intake: IV 280 180 Magnesium Sulfate-D5w Pmx 100 50 1 gm In Dextrose/Water 1 100ml.bag @ 100 mls/hr IVPB Q1H [facility] Rx#: [id number] Sodium Chloride 0.9% 500 130 80 ml 500 ml @ 20 mls/hr IV .Q24H [facility] Rx#:[id number] ceFAZolin 2 gm In Sodium 50 50 Chloride 0.9% 50 ml @ 100 mls/hr IVPB Q8HR [facility] Rx# :[id number] Oral 1500 536 Output: Urine 2320 900 Other: Voiding Method Indwelling Catheter Indwelling Catheter # Voids 1 ABP, PAP, CO, CI - Last Documented Arterial Blood Pressure 151/56 - Exam -GENERAL: The patient is alert and oriented x3, not in any acute distress. Generally weak HEENT: Pupils are round and equally reacting to light. EOMI. No scleral icterus. No conjunctival pallor. Normocephalic, atraumatic. No pharyngeal erythema. No thyromegaly. CARDIOVASCULAR: S1 and S2 present. No murmurs, rubs, or gallops. -PULMONARY: Chest is clear to auscultation, no wheezing or crackles. Decreased breath sounds both basal inferior ABDOMEN: Soft, nontender, nondistended, normoactive bowel sounds. No palpable organomegaly. MUSCULOSKELETAL: No joint swelling or deformity. EXTREMITIES: No cyanosis, clubbing, or pedal edema. NEUROLOGICAL: Gross neurological examination did not reveal any focal deficits. SKIN: No rashes. no petechiae. - Labs CBC & Chem 7: 08/25/19 23:28 08/25/19 23:28 Labs: Abnormal Lab Results - Last 24 Hours (Table) 08/25/19 08/25/19 08/26/19 Range/Units 23:28 23:28 05:59 RBC 3.36 L (4.30-5.90) m/uL Hgb 9.0 L (13.0-17.5) gm/dL Hct 28.5 L (39.0-53.0) % RDW 15.6 H (11.5-15.5) % Plt Count 556 H (150-450) k/uL Neutrophils # 7.9 H (1.3-7.7) k/uL PT 12.8 H (9.0-12.0) sec INR 1.3 H (<1.2) Sodium 130 L (137-145) mmol/L Chloride 92 L (98-107) mmol/L Creatinine 0.57 L (0.66-1.25) mg/dL Calcium 8.3 L (8.4-10.2) mg/dL Magnesium 1.4 L (1.6-2.3) mg/dL Albumin 2.8 L (3.5-5.0) g/dL Microbiology - Last 24 Hours (Table) 08/16/19 09:27 Fungal Culture - Preliminary Bronchial Washings - Random Yeast species Assessment and Plan Assessment: -Acute hypoxic and hypercapnic respiratory failure secondary to MSSA and E. coli pneumonia. patient is currently extubated. Patient is currently on cefazolin -Bilateral pleural effusion, right more than left, pulmonary and the case, possible need thoracocentesis. Patient is currently on Lasix -persistent bacteremia with MSSA. Patient patient was switched to cefazolin. repeat cultures have been negative. --Severe toxic encephalopathy from sepsis and septic shock. Improving. -Acute renal failure possibly acute tubular necrosis patient creatinine improved with IV fluids -Lactic acidosis secondary to sepsis, improved -Hypertension -Hyperlipidemia next and heparin hypertension -Elevated liver enzymes probably secondary to shock liver. -Hepatic encephalopathy: Ammonia level is bit better now. -Troponin leak secondary to myocardial injury from sepsis. -Severe pulmonary hypertension -Generalized weakness and fatigue
[2019-08-27] MEDS: ALPRAZolam 0.25 MG TAB PO PRN (00:25)
[2019-08-27] MEDS: oxyCODONE-APAP 5-325MG 1 EACH TAB PO PRN ×2 (01:37→10:30)
[2019-08-27] MEDS ORDERED: IPRATROPIUM-ALBUTEROL 3 ML NEB INHALATION PRN (01:42)
[2019-08-27] MEDS: HYDROmorphone 1 MG/ML 1 ML SYRINGE IVP PRN ×3 (05:52→23:13)
[2019-08-27] MEDS: IPRATROPIUM-ALBUTEROL 3 ML NEB INHALATION SCH ×4 (07:18→19:48)
[2019-08-27] MEDS: FUROSEMIDE 10 MG/ML 4 ML VIAL IV SCH ×3 (07:29→23:22)
[2019-08-27] MEDS: AMIODARONE 200 MG TAB PO SCH ×2 (07:38→21:08)
[2019-08-27] MEDS: METOPROLOL TARTRATE 50 MG TAB PO SCH ×3 (07:38→21:07)
[2019-08-27] MEDS: PANTOPRAZOLE 40 MG TABLET PO SCH (07:38)
--- NOTE | 2019-08-27 08:29 | XR ---
EXAMINATION TYPE: XR chest 1V portable DATE OF EXAM: 08/27/2019 CLINICAL HISTORY: Difficulty breathing progress study. TECHNIQUE: Single AP portable frontal view of the chest is obtained. COMPARISON: Chest x-ray and CT chest from one day earlier and older x-rays FINDINGS: There is persistent moderate to large sized right pleural effusion and associated right power ng compressive atelectasis and/or acute infiltrate. There is small left pleural effusion with left mi d to lower lung areas of acute infiltrate and/or atelectasis. Increased opacities in the periphery of the left lung redemonstrated. Patient slightly rotated to right on current study. Cardiac silhouette size appears within normal limits. Metallic cover from left shoulder surgery is partially imaged. Ri ght peritracheal soft tissue fullness corresponds to abnormal adenopathy CT. IMPRESSION: Persistent moderate to large right pleural effusion is small to moderate size left pleura l effusions. Persistent right lung compressive atelectasis and/or acute infiltrate. No significant in terval change. Persistent peripheral acute infiltrate and/or edema in the left lung fairly stable wit h more prominent due to basilar acute infiltrates and/or atelectatic changes are present from one day earlier.
--- NOTE | 2019-08-27 09:15 | P.PN ---
Subjective This is a pleasant 64 years old male with multiple medical problems who presents initially with acute hypoxic failure, fever and altered mental status patient was sewn intubated and found to have pneumonia secondary to MSSA and E coli, also patient had acute kidney injury and MSSA bacteremia. Call the test was negative 2. Patient has prolonged course in the ICU, please review the records and previous notes Patient is status post extubation on 08/15. He is more alert and awake. And he is saturating and 90s on 60 to oxygen nasal cannula, breathing at a rate of 18/m. Rest of vitals looks stable. He is alert and awake at more stable. CBC and BMP looks stable, magnesium was low at 1.4, recheck magnesium He remains on cefazolin since 08/21 for persistent bacteremia and pneumonia with MSSA. Also he is on Lasix 40 mg 3 times a day and metoprolol 50 mg 3 times a day. 08/27/2019 Patient is seen and examined in the general medical floor, is awake and alert oriented, is slightly dyspneic, is saturating 89-94% on 15 L via nonrebreather. Yesterday he was saturating low 90s on 6 L of oxygen via nasal cannula. Hemodynamically stable. Labs from today are pending. Chest x-ray from this morning: Persistent moderate to large right pleural effusion and moderate left-sided pleural effusion with compressive atelectasis. Associated with some infiltrated and/or edema. Patient remains on cefazolin and Lasix 40 mg 3 times a day. Patient is followed closely by pulmonary team as well. We will follow up with pulmonary about further recommendation Objective - Vital Signs Vital signs: Vital Signs Temp 97.8 F 08/27/19 07:56 Pulse 94 08/27/19 07:56 Resp 24 08/27/19 07:56 BP 167/82 08/27/19 07:56 Pulse Ox 94 L 08/27/19 07:56 Intake & Output 08/26/19 08/27/19 08/27/19 18:59 06:59 18:59 Intake Total 716 Output Total 900 3150 Balance -184 -3150 Weight 92.5 kg Intake: IV 180 Magnesium Sulfate-D5w Pmx 50 1 gm In Dextrose/Water 1 100ml.bag @ 100 mls/hr IVPB Q1H [facility] Rx#: [id number] Sodium Chloride 0.9% 500 80 ml 500 ml @ 20 mls/hr IV .Q24H [facility] Rx#:[id number] ceFAZolin 2 gm In Sodium 50 Chloride 0.9% 50 ml @ 100 mls/hr IVPB Q8HR [facility] Rx# :[id number] Oral 536 Output: Urine 900 3100 Stool 50 Other: Voiding Method Indwelling Catheter Urinal Diaper # Voids 1 1 ABP, PAP, CO, CI - Last Documented Arterial Blood Pressure 151/56 - Exam -GENERAL: The patient is alert and oriented x3, not in any acute distress. Generally weak HEENT: Pupils are round and equally reacting to light. EOMI. No scleral icterus. No conjunctival pallor. Normocephalic, atraumatic. No pharyngeal erythema. No thyromegaly. CARDIOVASCULAR: S1 and S2 present. No murmurs, rubs, or gallops. -PULMONARY: Chest is clear to auscultation, no wheezing or crackles. Decreased breath sounds both basal inferior ABDOMEN: Soft, nontender, nondistended, normoactive bowel sounds. No palpable organomegaly. MUSCULOSKELETAL: No joint swelling or deformity. EXTREMITIES: No cyanosis, clubbing, or pedal edema. NEUROLOGICAL: Gross neurological examination did not reveal any focal deficits. SKIN: No rashes. no petechiae. - Labs CBC & Chem 7: 08/25/19 23:28 08/25/19 23:28 Labs: Microbiology - Last 24 Hours (Table) 08/16/19 09:27 Acid Fast Bacilli Smear - Final Bronchial Washings - Random Acid Fast Bacilli Culture - Preliminary 08/16/19 09:27 Fungal Culture - Preliminary Bronchial Washings - Random Yeast species Assessment and Plan Assessment: -Acute hypoxic and hypercapnic respiratory failure secondary to MSSA and E. coli pneumonia. patient is currently extubated. Patient is currently on cefazolin -Bilateral pleural effusion, right more than left, pulmonary and the case, possible need thoracocentesis. Patient is currently on Lasix -persistent bacteremia with MSSA. Patient patient was switched to cefazolin. repeat cultures have been negative. --Severe toxic encephalopathy from sepsis and septic shock. Improving. -Acute renal failure possibly acute tubular necrosis patient creatinine improved with IV fluids -Lactic acidosis secondary to sepsis, improved -Hypertension -Hyperlipidemia next and heparin hypertension -Elevated liver enzymes probably secondary to shock liver. -Hepatic encephalopathy: Ammonia level is bit better now. -Troponin leak secondary to myocardial injury from sepsis. -Severe pulmonary hypertension -Generalized weakness and fatigue
[2019-08-27] MEDS: SODIUM CHLORIDE 0.9% 500 ML 500 ML IV SCH (10:38)
--- NOTE | 2019-08-27 11:02 | XR ---
EXAMINATION TYPE: XR chest 1V portable DATE OF EXAM: 08/27/2019 CLINICAL HISTORY: Post right-sided thoracentesis TECHNIQUE: Single AP portable upright view of the chest is obtained. COMPARISON: Chest x-ray from earlier today and older studies. CT chest yesterday. FINDINGS: Persistent moderate to large sized right pleural effusion that is slightly improved after right-sided thoracentesis. Associated right mid to basilar atelectasis and/or infiltrate. No pneumoth orax noted. Diffuse left lung opacity remains present greater in the lower lung. Cardiac silhouette size is stabl e and within normal limits. Partial visualization of surgical change left shoulder level. IMPRESSION: Moderate to large right pleural effusion improved after thoracentesis without pneumothora x. Other findings stable as there is persistent diffuse left lung acute infiltrates and/or edema grea ter in the lower lungs with small left pleural effusion.
[2019-08-27 11:10] LABS: African American GFR (CKD) >90 (>60 ml/min/1.73 sqM); Anion Gap 7 mmol/L; Blood Urea Nitrogen 15 mg/dL (9-20); Calcium 8.7 mg/dL (8.4-10.2); Carbon Dioxide 37 mmol/L (22-30); Chloride 88 mmol/L (98-107); Glucose 112 mg/dL (74-99); Magnesium 1.5 mg/dL (1.6-2.3); Non-African American GFR(CKD) >90 (>60 ml/min/1.73 sqM); Potassium 3.8 mmol/L (3.5-5.1); Sodium 132 mmol/L (137-145)
[2019-08-27 11:46] LABS: Basophils % (A) 0 %; Eosinophils # (A) 0.1 k/uL (0-0.7); Eosinophils % (A) 1 %; HCT 29.2 % (39.0-53.0); HGB 9.7 gm/dL (13.0-17.5); Hypochromasia Moderate; Lymphocytes # (A) 0.8 k/uL (1.0-4.8); Lymphocytes % (A) 6 %; MCH 27.5 pg (25.0-35.0); MCV 83.1 fL (80.0-100.0); Mean Platelet Volume 7.2; Monocytes # (A) 0.9 k/uL (0-1.0); Monocytes % (A) 7 %; Neutrophils # (A) 11.8 k/uL (1.3-7.7); Neutrophils % (A) 86 %; Platelet Count 594 k/uL (150-450); RBC 3.52 m/uL (4.30-5.90); WBC 13.7 k/uL (3.8-10.6)
--- NOTE | 2019-08-27 11:47 | P.PN ---
Subjective Progress Note Date: 08/27/19 Principal diagnosis: Acute hypoxic and hypercapnic respiratory failure second to aspiration pneumonia 62-year-old male patient who was brought into the emergency department today unresponsive and profoundly hypoxic. The patient was in acute hypoxic respiratory failure. Initial pulse ox was in the mid 30s. Apparently he was not also communicating or responding. He was apparently awake and alert on the morning prior to him coming to the hospital according to the landlord. The landlord noted that the patient was appearing ill and called EMS. Upon EMS arrival, the patient was found to be obtunded. He had a fever of 10 1F. He was found to be hypoxic, brought into the emergency room he was found to be tachycardic and hypoxic with was placed on supplemental oxygen without any benefit and ultimately the patient was intubated and placed on a mechanical ventilator. COVID 19 is suspected. The patient was placed on the opposite isolation. The patient had the appropriate nasal swabs. Chest x-ray showed bilateral airspace disease consistent with pneumonia in addition to interstitial pneumonitis. ET tube was around 3.7 cm above the mario. NG tube was extending into the left abdomen. There was a right upper lobe consolidation noted and a tiny right-sided pleural effusion. No evidence of any pneumothorax. There was bilateral infiltrates and coarse interstitium and a prosthetic left shoulder. The patient has a white cell count of 4.9. He had some lymphopenia. His platelet counts is no within normal limits. The blood gases was done on 100% nonrebreather showed a pH of 7.17 with a pCO2 of 66 and pO2 of 45. The patient also had an acute kidney injury with a creatinine of 1.65. Epigastric level was at 3.1. The ALT is at 1106 with an ammonia level of 146 and a bilirubin of 0.5 and an albumin of 4.1. The serum alcohol was negative and the patient has negative salicylates and acetaminophen. Influenza screen has been negative. Covid 19 analysis still pending for now. This patient lives with a sister in a house and he collects Social Security disability. He has had issues with mental health and the patient has been dealing with bipolar disorder and chronic insomnia of many years duration. He has also chronic anxiety disorder. No history of any previous suicidal ideation or intent. No delusions or hallucinations based on recent psychiatric evaluation that was in the hospital. On today's evaluation of 62,020 the patient is being seen in follow-up in the intensive care unit. Noted the patient is intubated on a mechanical ventilator and is suspected to have Covid 19. He is afebrile on today's evaluation. He remains on a mechanical ventilator. He is sedated with propofol running at 20 mg per KG per minute. He was given a total of 5 L of IV fluid as the patient was hypotensive and currently the fluid is running at 75 mL an hour of normal saline. He remains on norepinephrine infusion at 0.08 mg per KG per minute. He remains on a mechanical ventilator. His assist-control mode at the rate of 28 with a tidal volume of 450 and FiO2 of 60% with a PEEP of 15. His blood gases showed a pH of 7.12 with a pCO2 of 58 and pO2 of 187. This was done and FiO2 of 100%. Otherwise, the patient has blood abnormalities it is consistent with Covid 19 infection. He has a rhabdomyolysis with a CPK level of 6114. He has also transaminitis with a AST of 3354, ALT of 1962, and his LDH level is at 8367. His creatinine is at 1.2, which is up from a baseline of 1.65 with fluid resuscitation. His current minute ventilation is 13 L. I made recommendations to keep the same vent setting. Based on the blood on of some non-anion gap metabolic acidosis, and with recommendations to start the patient on bicarb infusion and addition to 2 A of IV bicarb pushes. He was having temperatures throughout the night with temperature maximum 100.8. Current temperature is 99.6. He'll be started on enteral feeding for nutritional support. Covid 19 evaluation is still pending for now. On today's evaluation of 08/07/2019 and seeing this patient for a follow-up. The patient has sedated with propofol. He was given a sedation holiday yesterday and his neurologic exam was suboptimal as the patient did not show adequate neurologic recovery. Based on that, a CAT scan of the brain was done and the CAT scan of the brain was negative for any acute abnormalities. Noted the patient was profoundly hypoxic and at time of admission to the hospital and there is a suspicion for hypoxic encephalopathy. Contrary to my expectations, the patient checked negative for Covid 19 infection. The blood culture came back positive for staph aureus. Currently is on a combination of cefepime and vancomycin. The patient was resuscitated with more than 5 L of normal saline and the patient is also requiring some pressors for hemodynamic support and levo fed was started and 8 on was placed on hold as of 5:00 this morning. Urine output in the order of 40 mL an hour. In terms of sedation, the patient is on propofol at 20 g per KG per minute. Note that the patient had issues with a significant leak around his orotracheal tube. This was replaced yesterday by [employer]IST[employer] without any major difficulties. This morning, he remains on a VC plus mode with a rate of 28 and a tidal volume of 450 and a nighttime of 1 second with a PEEP of 15 with an FiO2 of 50%. Blood gases from today showed a pH of 7.36 with a pCO2 of 37 and pO2 of 92. Chest x-ray showing diffuse bilateral pulmonary infiltrates. His cardiac rhythm is still in atrial fibrillation. He is on amiodarone maintenance at 0.5 mg per minute. The patient has a creatinine of 1.5. There is still evidence of transaminitis with elevation of the AST and ALP and both are improving. LDH level is elevated at 5738. CPKs improving at 2431. C-reactive protein is elevated at 622. Note that the LDH is on the decline, CPKs on the decline on today's evaluation. LFTs are also improving. On 08/08/2019 on seeing this patient for a follow-up. The patient has been off sedation since yesterday. I am not seeing an adequate neurologic recovery in this patient. There may be a component of hepatic encephalopathy in the patient's went into shock liver. Nevertheless, his ammonia is dropping. He is on lactulose. He is producing adequate amount of bowel activity. He is undergoing training the painful stimulation. Pupils are about 3 mm in size and there is C-reactive to light. There is a very weak cough and a gag. Absolutely no response to deep painful stimulation. No seizure activity has been noted. Neurology will be consulted on the case. EEG will be ordered. Meanwhile, the patient is clearly becoming a case of possible aspiration staphylococcal pneumonia. His blood culture came back positive for staph aureus. His sputum positive for staph. He also has gram-negative bacillus in his sputum which die turner to be E. coli. For now, the cultures and the blood to be MSSA. The patient was on examination of cefepime and vancomycin. I dropped the cefepime and I u tilized Zosyn to give him better anaerobic coverage as the patient clearly has a history of aspiration. Meanwhile, the Covid test came back negative. The patient remains on a mechanical ventilator. On today's chest x-ray there is worsening over the bilateral pulmonary infiltrates worse on the right. ET tube remains in a good location. The patient remains on an assist-control mode at the rate of 18 with a tidal volume of 450 and FiO2 of 50% with a PEEP of 10. Blood gas showed a pH of 7.46 with a pCO2 of 34 and pO2 of 103. CVP is ranging between 12 and 14. He remains in atrial fibrillation. He is on amiodarone drip maintenance at 0.5 mg per minute. He is also on normal saline at the rate of 75 mL an hour. His age fibrillation is under better control and he is on no pressors. He can tolerate beta blockers. He is having low-grade fever still. The white cell count is up to 22. The shock liver is improving including the AST and ALP level. The LDH level was elevated. The CPKs also improving is down to 2431. His ammonia level is down to 85. His coagulation profile is within normal limits. On 08/09/2019 the patient is being seen in follow-up in intensive care unit. Unfortunately, the patient has been off sedation for more than 24 hours and the patient is still not showing significant neurologic recovery. The patient is not following any specific commands. In fact he is not even withdrawing to deep painful stimulation. No seizure activity has been noted. EEG was done and showed diffuse slowing and it was consistent with severe encephalopathy which could be toxic metabolic encephalopathy versus hypoxic encephalopathy. The patient will be kept off sedation. Meanwhile, the ammonia level is progressively coming down and is down to 58. He continues to have a week cough and gag reflex. The patient remains in atrial fibrillation. The patient remained on assist control mode of ventilation. He is on VC plus mode at the rate of 28 with a tidal volume of 450 and FiO2 of 50% with a PEEP of 10. The blood gases from today shows a component of respiratory alkalosis with a pH of 7.5 with a pCO2 of 36 and pO2 of 71. The white cell count of 23. The patient has developed some hyperchloremic hypernatremia in the sodium level is up to 147 with a chloride of 114. Renal function is stable. The patient is receiving vital high protein at the rate of 52 mL an hour. In terms of atrial fibrillation, I had utilized back the amiodarone drip at 0.5 mg per minute and the patient is also on metoprolol 50 mg by mouth 3 times a day. Heart rate is still slightly tachycardic and will continue the same regimen for now. The patient was given a dose of Lasix yesterday. The patient Is producing better urine output for now. His weight is still up. The CPKs down to 395. The AST is down to 1000. ALT is down to 58. LDH is down to 03/10/2007. Calcium level at 7.1. No other significant issues otherwise over the past 24 hours. He remains on a combination of Zosyn and vancomycin. The blood culture and the sputum culture was positive for MSSA. The sputum culture was positive for E. coli. The chest x-ray still showing rather consolidation worse on the right compared to the left. ET tube remains in a good location. On 08/10/2019 the patient has been approximately 72 hours of sedation. Unfortunately, we do not see any significant neurologic recovery the patient's condition. He is still not responding to any verbal or deep painful stimulation. He remains completely unresponsive. On this morning, I have a mild assist-control mode of ventilation with a VC plus mode at a tidal volume of 450 FiO2 of 50% with a PEEP of 10 and the respiratory rate of 24. His blood gases showed a component of respiratory alkalosis. His pH is at 7.53 with a pC O2 of 39 pO2 of 63. Chest x-ray still showing bilateral pneumonia bilateral airspace disease worse on the right along with cardiomegaly and bilateral pleural effusions. ET tube is in a good location. The patient's white cell count is at 27. The patient is still having episodes of fever. Most recent blood culture from 2 days ago was positive for MSSA and MSSA was also cultured and his lungs and it was cultured also E. coli in his lungs. We are still thinking that this was an aspiration pneumonia. Shock liver, his LFTs are nearly normalized, severe has also dropped and ammonia level is being monitored is still elevated at 83. The lactulose was held as the patient was having liquidy stool and the patient had become also hyperchloremic and the sodium level is up to 149. He is receiving free water supplements with NG for now. He is also on vital high protein. In terms of his atrial fibrillation, rate is under better control with a combination of amiodarone maintenance of 0.5 mg per minute and Cardizem drip at 10 mg an hour. The patient is also on IV heparin. The active issue for now is his altered mentation. On 08/11/2019, I'm seeing the patient for a follow-up in intensive care unit. His been off sedation for the past 92 hours. On today's evaluation that is some slight grimacing upon very deep painful stimulation and upon pinching on his upper chest. For the most part he remains unresponsive. No seizure activity. Shock liver has recovered. Ammonia level is on the decline. I started the patient on rifixamine 550 mg by mouth twice a day yesterday and ammonia level is down to 45. I suspect a component of hypoxic encephalopathy although the possibility of metabolic encephalopathy cannot be completely ruled out. He is on a mechanical ventilator. No change in the vent setting. No changes in the x-ray findings as the patient has extensive airspace disease bilaterally more so on the right lower lobe. On the ventilator, the patient is on a VC plus mode with a tidal volume of 450 and FiO2 of 50% with a PEEP of 10 and tidal volume of 450 with a rate of 16. The patient's blood gas showed a pH of 7.52 with a pCO2 of 39 and pO2 of 67. On and off he was still having fever yesterday. Repeat blood cultures were sent. He remains on examination Zosyn and vancomycin. He is tolerating his enteral feeding for nutritional support. Is on IV heparin drip regarding his atrial fibrillation. He remains on amiodarone drip and oral metoprolol for rate control. He is also started on Cleviprex which is running at 2 mg an hour for tighter blood pressure control. The active issue remains his altered mentation with a possibility of him having hypoxic encephalopathy with the details as mentioned above. Patient was reevaluated today on 08/12/19, remains on mechanical ventilation, his ventilator settings are assist control rate 16 volume control plus at 450 FiO2 at 50% and PEEP of 10. ABG showed a pO2 of 79 pCO2 of 39 pH of 7.52. Chest x- ray continues to show bilateral pleural effusions, and by basilar space disease, hence I recommended ultrasound to evaluate for possible thoracentesis if the effusion isn't large enough to be drained. However the ultrasound showed minimal pleural effusions bilaterally, insufficient for thoracentesis. Patient remains on Zosyn and vancomycin, and he hasn't MSSA bacteremia, sputum is positive for E. coli and staph aureus. Neurologically the patient is about the same, however the only change noted today is the fact that the patient tries to open his eyes and grimacing upon deep painful stimuli. Remains off narcotics and sedatives. WBC count is up to 25.3 today slightly improved compared to yesterday. Basic metabolic profile is basically normal and his BUN is improving down to 38 creatinine is 0.55. Liver enzymes are steadily improving. Ammonia is 60 today. It was as high as 146 about a week ago remains on rifaximin. Reevaluated today on, patient remains in the ICU, intubated and mechani raul ventilated. Yesterday the patient had significant agitation and he had to be placed back on propofol. This morning the propofol was discontinued, and the patient seems to be more responsive to stimuli/verbal stimuli patient is opening his eyes, wiggling his toes, seems to be slow but at least the best I have seen him so far. Hence I kept the propofol off, and I will give the patient a chance to go on a weaning trial if possible. He is not quite ready to start weaning but we will continue to hold propofol and address hourly today for possible placement on pressure support and CPAP. Presently the patient is on mechanical ventilation with assist control rate of 16, volume is 450 FiO2 dropped down from 60% to 50% and his PEEP was decreased to 8. His ABG this morning showed a pO2 of 124 pCO2 of 48 pH of 7.44 patient is on propofol which is presently on hold. He is on clindamycin and for his MSSA bacteremia. He is on enteral tube feeding. Chest x-ray continues to show small areas of pneumonia bilaterally, and possibly a small right sided pleural effusion not large enough to consider thoracentesis as noted on ultrasound On 08/14/2019 patient seen in follow-up, in the intensive care unit, he remains intubated, on mechanical ventilator, on assist control mode of ventilation with FiO2 of 50%. This morning blood gases showed pO2 of 112, pCO2 45, and pH of 7.48. IV 0.9 normal saline at a rate of 10 ML per hour, heparin per weight- based protocol, and Diprivan has been on hold. Patient is lethargic although she is waking up and follow commands, wiggling toes on command. Appears to be in no acute distress, today's chest x-ray has been reviewed showing diffuse pleural parenchymal changes consistent with pulmonary edema or ARDS. Patient continues on Kefzol and Clindamycin for MSSA and E. coli pneumonia and bacteremia, follow-up blood cultures have been negative. Patient has been afebrile, hemodynamically stable, not on any vasopressors, today's labs have been reviewed, leukocytosis is down trending, WBC is down to 18.7, hemoglobin is 9.7, sodium is 142, potassium is 3.3, chloride is 108, CO2 32, BUN is 37 and creatinine 0.53. Patient in sinus rhythm, he remains on oral amiodarone, and heparin infusion for anticoagulation. Diuretics with Lasix 40 mg every 12 hours On 08/19/2019 patient seen in follow-up in intensive care unit. Patient was successfully weaned and extubated on 08/16/2019, he is currently on 6 L of oxygen the pulse ox of 94%, afebrile, hemodynamically patient is stable, patient is on IV fluids 0.9 normal saline at a rate of 10 ML per hour, he is very generally weak, he can hardly move his fingers. Patient is awake, oriented to self and the place, he is following command. He denies any acute distress, lung sounds reveal scattered rhonchi bilaterally, patient is able to cough and expectorate yellowish colored phlegm at times. Physical therapy has been working with the patient however patient is extremely weak, and has only been able to sit in the chair position in bed. Upper and lower extremities are positive for 1+ edema, patient remains on daily dose of oral Lasix at 40 mg daily. He is in -150 ML fluid balance over the last 24 hours. We'll give the patient additional dose of IV Lasix 60 mg this morning, this morning patient is requiring increasing amount of oxygen, and he was placed on BiPAP with pressures of 12 and 5 and 50%. This morning's chest x-ray shows increasing diffuse bilateral airspace disease likely related to pulmonary edema with persistent moderate pleural effusions. Patient did have a bedside bronchoscopy with bronchoalveolar lavage on 08/16/2019, and Gram stain has shown no organisms. H is sputum culture from 08/05/2019 was positive for MSSA, and E. coli, and blood cultures from 08/05/2019, and 08/07/2019 were positive for MSSA. Patient is on clindamycin and For Antibiotic Coverage. He is currently in sinus rhythm, he is on Eliquis for paroxysmal atrial fibrillation and oral Cordarone. On 08/20/2019 patient seen in follow-up in intensive care unit, yesterday he required placement on BiPAP later to his increased dyspnea and hypoxia. He tolerated it well, this morning she is on 8 L per high flow nasal cannula with a pulse ox of 94-97%, mildly dyspneic with conversation, but no acute distress, BiPAP was removed at 2100 last night. Patient was given additional Lasix yester day, and he is in -1.2 L over the last 24 hours. Still has some 1+ pitting edema involving upper and lower extremities. Still is very weak, and unable to lift up his arms off the bed. Lung sounds reveal scattered rhonchi, but less congested on today's exam. he is on full liquid diet, but requires intensive assistance with ADLs including feeding. Physical therapy is on consult and is following with the patient. Low-grade fevers with a T-max 99.0F over the last 24 hours, hemodynamically stable, IV fluids included D5W at a rate of 50 MLS per hour. We will switch to 0.9 normal saline at a 20 ML per hour, patient is on oral Eliquis for paroxysmal atrial fibrillation, and currently remains in sinus rhythm. Remains on Diamox. On 08/26/2019 patient seen in intensive care unit, he is awake and alert, in no acute distress, he is oriented 3, likely on 6 L of oxygen the pulse ox of 88-92%, no worsening dyspnea, he remains weak, however stronger compared to last week. He is participating with physical therapy, still unable to feed himself, still requires extensive assistance with all ADLs including feeding bathing and toileting, afebrile. Hemodynamically patient is stable, remains in sinus mechanism. 0.9 normal saline at a rate of 20 ML per hour, antibiotic coverage in the form of cefazolin. Remains on IV Lasix at 40 mg every 8 hours, and he is in -770 ML fluid balance over the last 24 hours. Has some residual mild upper and lower extremity edema, lung sounds reveal diminished breath sounds at the bases, no rhonchi, no wheezing. Today's chest x-ray shows mild cardiomegaly with central vessel congestion and small to moderate-sized right greater than left pleural effusions. Ultrasound the chest yesterday showed a right pleural effusion of 12.0 cm pocket. On 08/27/2019 patient seen in follow-up on general medical floor, apparently he appears to be more short of breath today, quite dyspneic, and his FiO2 is up 200% per 100% nonrebreather mask. Repeat chest x-ray shows moderate to large size right pleural effusion, and persistent diffuse left lung infiltrate. Mary Beth fitzpatrick remains on IV diuretics, 40 mg every 8 hours, he is in sinus mechanism. We proceeded with right-sided thoracentesis at the bedside by Dr. So would removal of 1.4 L of turbid dark colored pleural fluid which was sent for analysis. he tolerated procedure well, he remains quite weak. Objective - Vital Signs Vital signs: Vital Signs Temp 97.8 F 08/27/19 07:56 Pulse 94 08/27/19 07:56 Resp 24 08/27/19 07:56 BP 167/82 08/27/19 07:56 Pulse Ox 94 L 08/27/19 07:56 Intake & Output 08/26/19 08/27/19 08/27/19 18:59 06:59 18:59 Intake Total 716 Output Total 900 3150 Balance -184 -3150 Weight 92.5 kg Intake: IV 180 Magnesium Sulfate-D5w Pmx 50 1 gm In Dextrose/Water 1 100ml.bag @ 100 mls/hr IVPB Q1H [facility] Rx#: [id number] Sodium Chloride 0.9% 500 80 ml 500 ml @ 20 mls/hr IV .Q24H [facility] Rx#:[id number] ceFAZolin 2 gm In Sodium 50 Chloride 0.9% 50 ml @ 100 mls/hr IVPB Q8HR [facility] Rx# :[id number] Oral 536 Output: Urine 900 3100 Stool 50 Other: Voiding Method Indwelling Catheter Urinal Urinal Diaper Diaper # Voids 1 1 ABP, PAP, CO, CI - Last Documented Arterial Blood Pressure 151/56 - Exam GENERAL EXAM: Awake and alert, oriented to self and place 64-year-old white male, on 100% nonrebreather, pulse ox 94%, extremely weak, his voice is weak, patient is answering questions appropriately, on command, but unable to lift f eet off the bed, and able to lift his head or his arms off the HEAD: Normocephalic/atraumatic. EYES: Normal reaction of pupils, equal size. Conjunctiva pink, sclera white. NOSE: Clear with pink turbinates. THROAT: No erythema or exudates. NECK: No masses, no JVD, no thyroid enlargement, no adenopathy. CHEST: No chest wall deformity. Symmetrical expansion. LUNGS: Equal air entry with no crackles, wheeze, rhonchi or dullness. CVS: Regular rate and rhythm, normal S1 and S2, no gallops, no murmurs, no rubs ABDOMEN: Soft, nontender. No hepatosplenomegaly, normal bowel sounds, no guarding or rigidity. EXTREMITIES: No clubbing, no edema, no cyanosis, 2+ pulses and upper and lower extremities. MUSCULOSKELETAL: Muscle strength and tone normal. SPINE: No scoliosis or deformity SKIN: No rashes CENTRAL NERVOUS SYSTEM: Awake and alert, generally weak, 64-year-old white male, on 8 L of oxygen. No focal deficits, tone is normal in all 4 extremities. - Labs CBC & Chem 7: 08/25/19 23:28 08/27/19 10:15 Labs: Abnormal Lab Results - Last 24 Hours (Table) 08/27/19 Range/Units 10:15 Sodium 132 L (137-145) mmol/L Chloride 88 L (98-107) mmol/L Carbon Dioxide 37 H (22-30) mmol/L Creatinine 0.55 L (0.66-1.25) mg/dL Glucose 112 H (74-99) mg/dL Magnesium 1.5 L (1.6-2.3) mg/dL Microbiology - Last 24 Hours (Table) 08/16/19 09:27 Acid Fast Bacilli Smear - Final Bronchial Washings - Random Acid Fast Bacilli Culture - Preliminary 08/16/19 09:27 Fungal Culture - Preliminary Bronchial Washings - Random Yeast species Assessment and Plan Plan: Assessment: #1. Acute hypoxic and hypercapnic respiratory failure related to MSSA and E. coli pneumonia and sepsis, requiring intubation and mechanical ventilator support, successfully weaned and extubated on 08/16/2019. Patient had bronchoscopy with BAL on 08/16/2019 and so far the blood cultures are negative #2. Bilateral pleural effusions, status post right-sided thoracentesis today on 08/27/2019 would removal of 1.4 L of turbid dark colored pleural fluid which was sent for analysis #3. MSSA bacteremia #4. Acute kidney injury, improving. Secondary to acute sepsis. #5. Acute sepsis, and acute lactic acidosis on presentation, improved #6. Chronic psychiatric disorder/bipolar disorder. #7. Dyslipidemia. #8. Benign essential hypertension. #9. Shock liver, improved . #10. Acute rhabdomyolysis, resolved #11. Pulmonary hypertension. #12. Staph aureus septicemia, MSSA. #13. Hyperchloremic hypernatremia secondary to diarrhea and intravascular volume depletion. Improved with D5W. #14. Acute hepatic/metabolic encephalopathy, improved #15. Severe generalized weakness #16. Hypernatremia likely related to free water deficit, improved Plan: Continue diuretics, patient tolerated right-sided thoracentesis well, oxygenatio n has improved, and follow-up chest x-ray has been reviewed showing right-sided pleural effusion, persistent left lung infiltrate. Continue weaning FiO2, pleural fluid was sent for analysis. Continue close monitoring, maintain aspiration precautions, physical therapy to continue working with the patient and work on strength and gait training. I performed a history & physical examination of the patient and discussed their management with my nurse practitioner, Radha Silva. I reviewed the nurse practitioner's note and agree with the documented findings and plan of care. Lung sounds are positive for diminished breath sounds. The findings and the impression was discussed with the patient. I attest to the documentation by the nurse practitioner. Time with Patient: Less than 30
[2019-08-27] MEDS: ACETAMINOPHEN TAB 325 MG TAB PO PRN (14:50)
[2019-08-27] MEDS ORDERED: HEPARIN SODIUM,PORCINE 5,000 UNIT/ML 1 ML VIAL SQ SCH ×2 (19:45→21:00)
[2019-08-27 20:03] LABS: Appearance,BF Hazy; Color,BF Yellow
[2019-08-27 20:04] LABS: Nucleated Cells, Body Fluid 1590 /uL; RBC, Body Fluid 2850 /uL
[2019-08-27] MEDS: HEPARIN SODIUM,PORCINE 5,000 UNIT/ML 1 ML VIAL SQ SCH (21:07)
[2019-08-27 21:18] LABS: Mononuclear WBC,Body Fluid 12 %; Polynuclear WBC,Body Fluid 88 %
[2019-08-27] MEDS: LINEZOLID 600 MG in DEXTROSE/WATER 1 300ML.BAG IVPB SCH (23:21)
--- NOTE | 2019-08-28 00:07 | PN ---
PROGRESS NOTE DATE OF SERVICE: 08/27/2019 REASON FOR FOLLOWUP: MSSA bacteremia and aspiration pneumonia. INTERVAL HISTORY: The patient is currently afebrile, has been breathing more comfortably. Denies having any chest pain. Did have some cough. No nausea, vomiting. No abdominal pain. No diarrhea. PHYSICAL EXAMINATION: Blood pressure 117/60 with a pulse of 84, temperature 100. He is 93% . General description is a middle-aged male lying in bed in no distress. No tachypnea or accessory muscle of respiration use. RESPIRATORY SYSTEM: Unlabored breathing with decreased breath sounds at the bases. No wheeze. HEART: S1, S2. Regular rate and rhythm. ABDOMEN: Soft, no tenderness. LABS: Hemoglobin 9.7, white count 13.7, BUN of 15, creatinine 0.55. DIAGNOSTIC IMPRESSION AND PLAN: Patient with MSSA bacteremia. Follow-up blood cultures 08/08 has been negative. Patient has received more than 2 weeks for his underlying bacteremia, now with worsening of the x-ray finding and new fever. Blood culture will be repeated and antibiotic will be broadened to Zosyn and Zyvox while waiting for his condition to stabilize and culture to finalize. MMODL / IJN: [id number] /
[2019-08-28 01:22] LABS: Glucose, BF Source Pleural Fluid; Glucose, Body Fluid 75 mg/dL; LDH, Body Fluid Source Pleural Fluid
[2019-08-28] MEDS: PIPERACILLIN-TAZOBACTAM 3.375 GM in SODIUM CHLORIDE 0.9% 100 ML IVPB SCH ×3 (01:49→17:02)
[2019-08-28] MEDS: oxyCODONE-APAP 5-325MG 1 EACH TAB PO PRN ×3 (03:07→21:05)
--- NOTE | 2019-08-28 03:34 | PCN ---
PROCEDURE NOTE PROCEDURE: Thoracentesis. PREOPERATIVE DIAGNOSIS: Right-sided pleural effusion. POSTOPERATIVE DIAGNOSIS: Right-sided pleural effusion. Indication Pleural effusion. A time-out was completed verifying correct patient, procedure, site, positioning , and implant (s) or special equipment if applicable. Ultrasound guidance was not used and appropriate fluid pocket was identified and marked. Patient was positioned, prepped and draped in usual sterile fashion. Lidocaine was used to anesthetize the area. A Thoracentesis catheter was introduced into the pleural space and fluid was removed. Blood loss was none. A chest x-ray was ordered to evaluate for pneumothorax. Total Fluid Removed: 1.4 L Color of Fluid: Dark, turbid, yellowish pleural effusion. Fluid was sent for appropriate laboratory tests. Patient tolerated the procedure well and there were no complications. No bedside complications. No pneumothorax on the chest x-ray. MMODL / IJN: [id number] / MTDD
[2019-08-28] MEDS: HYDROmorphone 1 MG/ML 1 ML SYRINGE IVP PRN ×2 (08:30→17:03)
[2019-08-28] MEDS: HEPARIN SODIUM,PORCINE 5,000 UNIT/ML 1 ML VIAL SQ SCH ×3 (08:30→23:28)
[2019-08-28] MEDS: AMIODARONE 200 MG TAB PO SCH ×2 (08:31→20:57)
[2019-08-28] MEDS: FUROSEMIDE 10 MG/ML 4 ML VIAL IV SCH ×2 (08:31→20:57)
[2019-08-28] MEDS: SODIUM CHLORIDE 0.9% 500 ML 500 ML IV SCH (08:31)
[2019-08-28] MEDS: PANTOPRAZOLE 40 MG TABLET PO SCH (08:31)
[2019-08-28] MEDS: METOPROLOL TARTRATE 50 MG TAB PO SCH ×3 (08:31→20:57)
[2019-08-28] MEDS: IPRATROPIUM-ALBUTEROL 3 ML NEB INHALATION SCH ×4 (09:00→19:46)
[2019-08-28 09:54] LABS: Basophils % (A) 0 %; Eosinophils # (A) 0.2 k/uL (0-0.7); Eosinophils % (A) 1 %; HGB 8.7 gm/dL (13.0-17.5); Hypochromasia Moderate; Lymphocytes # (A) 0.9 k/uL (1.0-4.8); Lymphocytes % (A) 8 %; MCH 25.2 pg (25.0-35.0); MCHC 30.1 g/dL (31.0-37.0); MCV 83.7 fL (80.0-100.0); Mean Platelet Volume 6.9; Monocytes # (A) 0.9 k/uL (0-1.0); Monocytes % (A) 8 %; Neutrophils # (A) 9.3 k/uL (1.3-7.7); Neutrophils % (A) 82 %; Platelet Count 505 k/uL (150-450); RBC 3.47 m/uL (4.30-5.90); RDW 15.6 % (11.5-15.5); WBC 11.4 k/uL (3.8-10.6)
[2019-08-28 10:06] LABS: African American GFR (CKD) >90 (>60 ml/min/1.73 sqM); Anion Gap 10 mmol/L; Blood Urea Nitrogen 14 mg/dL (9-20); Calcium 8.3 mg/dL (8.4-10.2); Carbon Dioxide 33 mmol/L (22-30); Chloride 88 mmol/L (98-107); Glucose 130 mg/dL (74-99); Non-African American GFR(CKD) >90 (>60 ml/min/1.73 sqM); Potassium 3.4 mmol/L (3.5-5.1); Sodium 131 mmol/L (137-145)
--- NOTE | 2019-08-28 10:52 | XR ---
EXAMINATION TYPE: XR chest 1V DATE OF EXAM: 08/28/2019 HISTORY: Shortness of breath. COMPARISON: 08/27/2019 TECHNIQUE: Single view of the chest is submitted. FINDINGS: Demonstrated are scattered senescent parenchymal change. Persistent basilar infiltrates with moderate right-sided pleural effusion. Patchy upper lobe infiltra matheus also noted. The heart is stable. Hilar and mediastinal structures are within normal limits. Degenerative changes are seen of the dorsal spine. IMPRESSION: 1. Essentially stable chest. Correlate for pneumonia.
--- NOTE | 2019-08-28 11:48 | P.PN ---
Subjective This is a pleasant 64 years old male with multiple medical problems who presents initially with acute hypoxic failure, fever and altered mental status patient was sewn intubated and found to have pneumonia secondary to MSSA and E coli, also patient had acute kidney injury and MSSA bacteremia. Call the test was negative 2. Patient has prolonged course in the ICU, please review the records and previous notes Patient is status post extubation on 08/15. He is more alert and awake. And he is saturating and 90s on 60 to oxygen nasal cannula, breathing at a rate of 18/m. Rest of vitals looks stable. He is alert and awake at more stable. CBC and BMP looks stable, magnesium was low at 1.4, recheck magnesium He remains on cefazolin since 08/21 for persistent bacteremia and pneumonia with MSSA. Also he is on Lasix 40 mg 3 times a day and metoprolol 50 mg 3 times a day. 08/27/2019 Patient is seen and examined in the general medical floor, is awake and alert oriented, is slightly dyspneic, is saturating 89-94% on 15 L via nonrebreather. Yesterday he was saturating low 90s on 6 L of oxygen via nasal cannula. Hemodynamically stable. Labs from today are pending. Chest x-ray from this morning: Persistent moderate to large right pleural effusion and moderate left-sided pleural effusion with compressive atelectasis. Associated with some infiltrated and/or edema. Patient remains on cefazolin and Lasix 40 mg 3 times a day. Patient is followed closely by pulmonary team as well. We will follow up with pulmonary about further recommendation 08/28/2019 Patient status post right thoracocentesis about 1.4 L of fluid removed, he is still a little bit tachypneic , he is saturating 90s on 3 L oxygen via high flow nasal cannula. Is awake and alert, no chest pain or significant coughing. WBC trending down to 11.4 K, hemoglobin 8.7, platelets is normal. Sodium 131, potassium 3.4, creatinine is normal. Repeat chest x-ray this morning: Showing stable chest, pneumonia. Patient was found closely by pulmonary team as well He remains on cefazolin and Lasix IV 40 mg 3 times a day. Objective - Vital Signs Vital signs: Vital Signs Temp 98.6 F 08/28/19 07:05 Pulse 72 08/28/19 07:05 Resp 18 08/28/19 07:05 BP 168/82 08/28/19 07:05 Pulse Ox 94 L 08/28/19 07:05 Intake & Output 08/27/19 08/28/19 08/28/19 18:59 06:59 18:59 Intake Total 50 50 Output Total 550 Balance 50 -500 Weight 92.5 kg Intake: IV 50 50 ceFAZolin 2 gm In Sodium 50 50 Chloride 0.9% 50 ml @ 100 mls/hr IVPB Q8HR [facility] Rx# :[id number] Output: Urine 550 Other: Voiding Method Urinal Indwelling Catheter Diaper ABP, PAP, CO, CI - Last Documented Arterial Blood Pressure 151/56 - Exam -GENERAL: The patient is alert and oriented x3, not in any acute distress. Generally weak HEENT: Pupils are round and equally reacting to light. EOMI. No scleral icterus. No conjunctival pallor. Normocephalic, atraumatic. No pharyngeal erythema. No thyromegaly. CARDIOVASCULAR: S1 and S2 present. No murmurs, rubs, or gallops. -PULMONARY: Chest is clear to auscultation, no wheezing or crackles. Decreased breath sounds both basal inferior ABDOMEN: Soft, nontender, nondistended, normoactive bowel sounds. No palpable organomegaly. MUSCULOSKELETAL: No joint swelling or deformity. EXTREMITIES: No cyanosis, clubbing, or pedal edema. NEUROLOGICAL: Gross neurological examination did not reveal any focal deficits. SKIN: No rashes. no petechiae. - Labs CBC & Chem 7: 08/28/19 08:57 08/28/19 08:57 Labs: Abnormal Lab Results - Last 24 Hours (Table) 08/27/19 08/28/19 08/28/19 Range/Units 10:15 08:57 08:57 WBC 13.7 H 11.4 H (3.8-10.6) k/uL RBC 3.52 L 3.47 L (4.30-5.90) m/uL Hgb 9.7 L 8.7 L (13.0-17.5) gm/dL Hct 29.2 L 29.0 L (39.0-53.0) % MCHC 30.1 L (31.0-37.0) g/dL RDW 15.6 H (11.5-15.5) % Plt Count 594 H 505 H (150-450) k/uL Neutrophils # 11.8 H 9.3 H (1.3-7.7) k/uL Lymphocytes # 0.8 L 0.9 L (1.0-4.8) k/uL Sodium 131 L (137-145) mmol/L Potassium 3.4 L (3.5-5.1) mmol/L Chloride 88 L (98-107) mmol/L Carbon Dioxide 33 H (22-30) mmol/L Glucose 130 H (74-99) mg/dL Calcium 8.3 L (8.4-10.2) mg/dL Microbiology - Last 24 Hours (Table) 08/27/19 10:10 Gram Stain - Preliminary Pleural Fluid Body Fluid Culture - Preliminary 08/16/19 09:27 Fungal Culture - Preliminary Bronchial Washings - Random [place] tropicalis Assessment and Plan Assessment: -Acute hypoxic and hypercapnic respiratory failure secondary to MSSA and E. coli pneumonia. patient is currently extubated. Patient is currently on cefazolin -Bilateral pleural effusion, right more than left, pulmonary and the case, possible need thoracocentesis. Patient is currently on Lasix -persistent bacteremia with MSSA. Patient patient was switched to cefazolin. repeat cultures have been negative. --Severe toxic encephalopathy from sepsis and septic shock. Improving. -Acute renal failure possibly acute tubular necrosis patient creatinine improved with IV fluids -Lactic acidosis secondary to sepsis, improved -Hypertension -Hyperlipidemia next and heparin hypertension -Elevated liver enzymes probably secondary to shock liver. -Hepatic encephalopathy: Ammonia level is bit better now. -Troponin leak secondary to myocardial injury from sepsis. -Severe pulmonary hypertension -Generalized weakness and fatigue
[2019-08-28] MEDS: LINEZOLID 600 MG in DEXTROSE/WATER 1 300ML.BAG IVPB SCH ×2 (12:37→23:29)
[2019-08-28] MEDS ORDERED: Potassium Replacement Protocol 1 EACH MISC MISCELLANE PRN (12:52)
[2019-08-28] MEDS: POTASSIUM CHLORIDE ER 20 MEQ TAB.ER PO SCH ×2 (13:13→17:03)
--- NOTE | 2019-08-28 13:18 | P.PN ---
Subjective Progress Note Date: 08/28/19 Principal diagnosis: Acute hypoxic and hypercapnic respiratory failure second to aspiration pneumonia 62-year-old male patient who was brought into the emergency department today unresponsive and profoundly hypoxic. The patient was in acute hypoxic respiratory failure. Initial pulse ox was in the mid 30s. Apparently he was not also communicating or responding. He was apparently awake and alert on the morning prior to him coming to the hospital according to the landlord. The landlord noted that the patient was appearing ill and called EMS. Upon EMS arrival, the patient was found to be obtunded. He had a fever of 10 1F. He was found to be hypoxic, brought into the emergency room he was found to be tachycardic and hypoxic with was placed on supplemental oxygen without any benefit and ultimately the patient was intubated and placed on a mechanical ventilator. COVID 19 is suspected. The patient was placed on the opposite isolation. The patient had the appropriate nasal swabs. Chest x-ray showed bilateral airspace disease consistent with pneumonia in addition to interstitial pneumonitis. ET tube was around 3.7 cm above the mario. NG tube was extending into the left abdomen. There was a right upper lobe consolidation noted and a tiny right-sided pleural effusion. No evidence of any pneumothorax. There was bilateral infiltrates and coarse interstitium and a prosthetic left shoulder. The patient has a white cell count of 4.9. He had some lymphopenia. His platelet counts is no within normal limits. The blood gases was done on 100% nonrebreather showed a pH of 7.17 with a pCO2 of 66 and pO2 of 45. The patient also had an acute kidney injury with a creatinine of 1.65. Epigastric level was at 3.1. The ALT is at 1106 with an ammonia level of 146 and a bilirubin of 0.5 and an albumin of 4.1. The serum alcohol was negative and the patient has negative salicylates and acetaminophen. Influenza screen has been negative. Covid 19 analysis still pending for now. This patient lives with a sister in a house and he collects Social Security disability. He has had issues with mental health and the patient has been dealing with bipolar disorder and chronic insomnia of many years duration. He has also chronic anxiety disorder. No history of any previous suicidal ideation or intent. No delusions or hallucinations based on recent psychiatric evaluation that was in the hospital. On today's evaluation of 62,020 the patient is being seen in follow-up in the intensive care unit. Noted the patient is intubated on a mechanical ventilator and is suspected to have Covid 19. He is afebrile on today's evaluation. He remains on a mechanical ventilator. He is sedated with propofol running at 20 mg per KG per minute. He was given a total of 5 L of IV fluid as the patient was hypotensive and currently the fluid is running at 75 mL an hour of normal saline. He remains on norepinephrine infusion at 0.08 mg per KG per minute. He remains on a mechanical ventilator. His assist-control mode at the rate of 28 with a tidal volume of 450 and FiO2 of 60% with a PEEP of 15. His blood gases showed a pH of 7.12 with a pCO2 of 58 and pO2 of 187. This was done and FiO2 of 100%. Otherwise, the patient has blood abnormalities it is consistent with Covid 19 infection. He has a rhabdomyolysis with a CPK level of 6114. He has also transaminitis with a AST of 3354, ALT of 1962, and his LDH level is at 8367. His creatinine is at 1.2, which is up from a baseline of 1.65 with fluid resuscitation. His current minute ventilation is 13 L. I made recommendations to keep the same vent setting. Based on the blood on of some non-anion gap metabolic acidosis, and with recommendations to start the patient on bicarb infusion and addition to 2 A of IV bicarb pushes. He was having temperatures throughout the night with temperature maximum 100.8. Current temperature is 99.6. He'll be started on enteral feeding for nutritional support. Covid 19 evaluation is still pending for now. On today's evaluation of 08/07/2019 and seeing this patient for a follow-up. The patient has sedated with propofol. He was given a sedation holiday yesterday and his neurologic exam was suboptimal as the patient did not show adequate neurologic recovery. Based on that, a CAT scan of the brain was done and the CAT scan of the brain was negative for any acute abnormalities. Noted the patient was profoundly hypoxic and at time of admission to the hospital and there is a suspicion for hypoxic encephalopathy. Contrary to my expectations, the patient checked negative for Covid 19 infection. The blood culture came back positive for staph aureus. Currently is on a combination of cefepime and vancomycin. The patient was resuscitated with more than 5 L of normal saline and the patient is also requiring some pressors for hemodynamic support and levo fed was started and 8 on was placed on hold as of 5:00 this morning. Urine output in the order of 40 mL an hour. In terms of sedation, the patient is on propofol at 20 g per KG per minute. Note that the patient had issues with a significant leak around his orotracheal tube. This was replaced yesterday by [employer] without any major difficulties. This morning, he remains on a VC plus mode with a rate of 28 and a tidal volume of 450 and a nighttime of 1 second with a PEEP of 15 with an FiO2 of 50%. Blood gases from today showed a pH of 7.36 with a pCO2 of 37 and pO2 of 92. Chest x-ray showing diffuse bilateral pulmonary infiltrates. His cardiac rhythm is still in atrial fibrillation. He is on amiodarone maintenance at 0.5 mg per minute. The patient has a creatinine of 1.5. There is still evidence of transaminitis with elevation of the AST and ALP and both are improving. LDH level is elevated at 5738. CPKs improving at 2431. C-reactive protein is elevated at 622. Note that the LDH is on the decline, CPKs on the decline on today's evaluation. LFTs are also improving. On 08/08/2019 on seeing this patient for a follow-up. The patient has been off sedation since yesterday. I am not seeing an adequate neurologic recovery in this patient. There may be a component of hepatic encephalopathy in the patient's went into shock liver. Nevertheless, his ammonia is dropping. He is on lactulose. He is producing adequate amount of bowel activity. He is undergoing training the painful stimulation. Pupils are about 3 mm in size and there is C-reactive to light. There is a very weak cough and a gag. Absolutely no response to deep painful stimulation. No seizure activity has been noted. Neurology will be consulted on the case. EEG will be ordered. Meanwhile, the patient is clearly becoming a case of possible aspiration staphylococcal pneumonia. His blood culture came back positive for staph aureus. His sputum positive for staph. He also has gram-negative bacillus in his sputum which sheet turner to be E. coli. For now, the cultures and the blood to be MSSA. The patient was on examination of cefepime and vancomycin. I dropped the cefepime and I u tilized Zosyn to give him better anaerobic coverage as the patient clearly has a history of aspiration. Meanwhile, the Covid test came back negative. The patient remains on a mechanical ventilator. On today's chest x-ray there is worsening over the bilateral pulmonary infiltrates worse on the right. ET tube remains in a good location. The patient remains on an assist-control mode at the rate of 18 with a tidal volume of 450 and FiO2 of 50% with a PEEP of 10. Blood gas showed a pH of 7.46 with a pCO2 of 34 and pO2 of 103. CVP is ranging between 12 and 14. He remains in atrial fibrillation. He is on amiodarone drip maintenance at 0.5 mg per minute. He is also on normal saline at the rate of 75 mL an hour. His age fibrillation is under better control and he is on no pressors. He can tolerate beta blockers. He is having low-grade fever still. The white cell count is up to 22. The shock liver is improving including the AST and ALP level. The LDH level was elevated. The CPKs also improving is down to 2431. His ammonia level is down to 85. His coagulation profile is within normal limits. On 08/09/2019 the patient is being seen in follow-up in intensive care unit. Unfortunately, the patient has been off sedation for more than 24 hours and the patient is still not showing significant neurologic recovery. The patient is not following any specific commands. In fact he is not even withdrawing to deep painful stimulation. No seizure activity has been noted. EEG was done and showed diffuse slowing and it was consistent with severe encephalopathy which could be toxic metabolic encephalopathy versus hypoxic encephalopathy. The patient will be kept off sedation. Meanwhile, the ammonia level is progressively coming down and is down to 58. He continues to have a week cough and gag reflex. The patient remains in atrial fibrillation. The patient remained on assist control mode of ventilation. He is on VC plus mode at the rate of 28 with a tidal volume of 450 and FiO2 of 50% with a PEEP of 10. The blood gases from today shows a component of respiratory alkalosis with a pH of 7.5 with a pCO2 of 36 and pO2 of 71. The white cell count of 23. The patient has developed some hyperchloremic hypernatremia in the sodium level is up to 147 with a chloride of 114. Renal function is stable. The patient is receiving vital high protein at the rate of 52 mL an hour. In terms of atrial fibrillation, I had utilized back the amiodarone drip at 0.5 mg per minute and the patient is also on metoprolol 50 mg by mouth 3 times a day. Heart rate is still slightly tachycardic and will continue the same regimen for now. The patient was given a dose of Lasix yesterday. The patient Is producing better urine output for now. His weight is still up. The CPKs down to 395. The AST is down to 1000. ALT is down to 58. LDH is down to 03/10/2007. Calcium level at 7.1. No other significant issues otherwise over the past 24 hours. He remains on a combination of Zosyn and vancomycin. The blood culture and the sputum culture was positive for MSSA. The sputum culture was positive for E. coli. The chest x-ray still showing rather consolidation worse on the right compared to the left. ET tube remains in a good location. On 08/10/2019 the patient has been approximately 72 hours of sedation. Unfortunately, we do not see any significant neurologic recovery the patient's condition. He is still not responding to any verbal or deep painful stimulation. He remains completely unresponsive. On this morning, I have a mild assist-control mode of ventilation with a VC plus mode at a tidal volume of 450 FiO2 of 50% with a PEEP of 10 and the respiratory rate of 24. His blood gases showed a component of respiratory alkalosis. His pH is at 7.53 with a pC O2 of 39 pO2 of 63. Chest x-ray still showing bilateral pneumonia bilateral airspace disease worse on the right along with cardiomegaly and bilateral pleural effusions. ET tube is in a good location. The patient's white cell count is at 27. The patient is still having episodes of fever. Most recent blood culture from 2 days ago was positive for MSSA and MSSA was also cultured and his lungs and it was cultured also E. coli in his lungs. We are still thinking that this was an aspiration pneumonia. Shock liver, his LFTs are nearly normalized, severe has also dropped and ammonia level is being monitored is still elevated at 83. The lactulose was held as the patient was having liquidy stool and the patient had become also hyperchloremic and the sodium level is up to 149. He is receiving free water supplements with NG for now. He is also on vital high protein. In terms of his atrial fibrillation, rate is under better control with a combination of amiodarone maintenance of 0.5 mg per minute and Cardizem drip at 10 mg an hour. The patient is also on IV heparin. The active issue for now is his altered mentation. On 08/11/2019, I'm seeing the patient for a follow-up in intensive care unit. His been off sedation for the past 92 hours. On today's evaluation that is some slight grimacing upon very deep painful stimulation and upon pinching on his upper chest. For the most part he remains unresponsive. No seizure activity. Shock liver has recovered. Ammonia level is on the decline. I started the patient on rifixamine 550 mg by mouth twice a day yesterday and ammonia level is down to 45. I suspect a component of hypoxic encephalopathy although the possibility of metabolic encephalopathy cannot be completely ruled out. He is on a mechanical ventilator. No change in the vent setting. No changes in the x-ray findings as the patient has extensive airspace disease bilaterally more so on the right lower lobe. On the ventilator, the patient is on a VC plus mode with a tidal volume of 450 and FiO2 of 50% with a PEEP of 10 and tidal volume of 450 with a rate of 16. The patient's blood gas showed a pH of 7.52 with a pCO2 of 39 and pO2 of 67. On and off he was still having fever yesterday. Repeat blood cultures were sent. He remains on examination Zosyn and vancomycin. He is tolerating his enteral feeding for nutritional support. Is on IV heparin drip regarding his atrial fibrillation. He remains on amiodarone drip and oral metoprolol for rate control. He is also started on Cleviprex which is running at 2 mg an hour for tighter blood pressure control. The active issue remains his altered mentation with a possibility of him having hypoxic encephalopathy with the details as mentioned above. Patient was reevaluated today on 08/12/19, remains on mechanical ventilation, his ventilator settings are assist control rate 16 volume control plus at 450 FiO2 at 50% and PEEP of 10. ABG showed a pO2 of 79 pCO2 of 39 pH of 7.52. Chest x- ray continues to show bilateral pleural effusions, and by basilar space disease, hence I recommended ultrasound to evaluate for possible thoracentesis if the effusion isn't large enough to be drained. However the ultrasound showed minimal pleural effusions bilaterally, insufficient for thoracentesis. Patient remains on Zosyn and vancomycin, and he hasn't MSSA bacteremia, sputum is positive for E. coli and staph aureus. Neurologically the patient is about the same, however the only change noted today is the fact that the patient tries to open his eyes and grimacing upon deep painful stimuli. Remains off narcotics and sedatives. WBC count is up to 25.3 today slightly improved compared to yesterday. Basic metabolic profile is basically normal and his BUN is improving down to 38 creatinine is 0.55. Liver enzymes are steadily improving. Ammonia is 60 today. It was as high as 146 about a week ago remains on rifaximin. Reevaluated today on, patient remains in the ICU, intubated and mechani raul ventilated. Yesterday the patient had significant agitation and he had to be placed back on propofol. This morning the propofol was discontinued, and the patient seems to be more responsive to stimuli/verbal stimuli patient is opening his eyes, wiggling his toes, seems to be slow but at least the best I have seen him so far. Hence I kept the propofol off, and I will give the patient a chance to go on a weaning trial if possible. He is not quite ready to start weaning but we will continue to hold propofol and address hourly today for possible placement on pressure support and CPAP. Presently the patient is on mechanical ventilation with assist control rate of 16, volume is 450 FiO2 dropped down from 60% to 50% and his PEEP was decreased to 8. His ABG this morning showed a pO2 of 124 pCO2 of 48 pH of 7.44 patient is on propofol which is presently on hold. He is on clindamycin and for his MSSA bacteremia. He is on enteral tube feeding. Chest x-ray continues to show small areas of pneumonia bilaterally, and possibly a small right sided pleural effusion not large enough to consider thoracentesis as noted on ultrasound On 08/14/2019 patient seen in follow-up, in the intensive care unit, he remains intubated, on mechanical ventilator, on assist control mode of ventilation with FiO2 of 50%. This morning blood gases showed pO2 of 112, pCO2 45, and pH of 7.48. IV 0.9 normal saline at a rate of 10 ML per hour, heparin per weight- based protocol, and Diprivan has been on hold. Patient is lethargic although she is waking up and follow commands, wiggling toes on command. Appears to be in no acute distress, today's chest x-ray has been reviewed showing diffuse pleural parenchymal changes consistent with pulmonary edema or ARDS. Patient continues on Kefzol and Clindamycin for MSSA and E. coli pneumonia and bacteremia, follow-up blood cultures have been negative. Patient has been afebrile, hemodynamically stable, not on any vasopressors, today's labs have been reviewed, leukocytosis is down trending, WBC is down to 18.7, hemoglobin is 9.7, sodium is 142, potassium is 3.3, chloride is 108, CO2 32, BUN is 37 and creatinine 0.53. Patient in sinus rhythm, he remains on oral amiodarone, and heparin infusion for anticoagulation. Diuretics with Lasix 40 mg every 12 hours On 08/19/2019 patient seen in follow-up in intensive care unit. Patient was successfully weaned and extubated on 08/16/2019, he is currently on 6 L of oxygen the pulse ox of 94%, afebrile, hemodynamically patient is stable, patient is on IV fluids 0.9 normal saline at a rate of 10 ML per hour, he is very generally weak, he can hardly move his fingers. Patient is awake, oriented to self and the place, he is following command. He denies any acute distress, lung sounds reveal scattered rhonchi bilaterally, patient is able to cough and expectorate yellowish colored phlegm at times. Physical therapy has been working with the patient however patient is extremely weak, and has only been able to sit in the chair position in bed. Upper and lower extremities are positive for 1+ edema, patient remains on daily dose of oral Lasix at 40 mg daily. He is in -150 ML fluid balance over the last 24 hours. We'll give the patient additional dose of IV Lasix 60 mg this morning, this morning patient is requiring increasing amount of oxygen, and he was placed on BiPAP with pressures of 12 and 5 and 50%. This morning's chest x-ray shows increasing diffuse bilateral airspace disease likely related to pulmonary edema with persistent moderate pleural effusions. Patient did have a bedside bronchoscopy with bronchoalveolar lavage on 08/16/2019, and Gram stain has shown no organisms. H is sputum culture from 08/05/2019 was positive for MSSA, and E. coli, and blood cultures from 08/05/2019, and 08/07/2019 were positive for MSSA. Patient is on clindamycin and For Antibiotic Coverage. He is currently in sinus rhythm, he is on Eliquis for paroxysmal atrial fibrillation and oral Cordarone. On 08/20/2019 patient seen in follow-up in intensive care unit, yesterday he required placement on BiPAP later to his increased dyspnea and hypoxia. He tolerated it well, this morning she is on 8 L per high flow nasal cannula with a pulse ox of 94-97%, mildly dyspneic with conversation, but no acute distress, BiPAP was removed at 2100 last night. Patient was given additional Lasix yester day, and he is in -1.2 L over the last 24 hours. Still has some 1+ pitting edema involving upper and lower extremities. Still is very weak, and unable to lift up his arms off the bed. Lung sounds reveal scattered rhonchi, but less congested on today's exam. he is on full liquid diet, but requires intensive assistance with ADLs including feeding. Physical therapy is on consult and is following with the patient. Low-grade fevers with a T-max 99.0F over the last 24 hours, hemodynamically stable, IV fluids included D5W at a rate of 50 MLS per hour. We will switch to 0.9 normal saline at a 20 ML per hour, patient is on oral Eliquis for paroxysmal atrial fibrillation, and currently remains in sinus rhythm. Remains on Diamox. On 08/26/2019 patient seen in intensive care unit, he is awake and alert, in no acute distress, he is oriented 3, likely on 6 L of oxygen the pulse ox of 88-92%, no worsening dyspnea, he remains weak, however stronger compared to last week. He is participating with physical therapy, still unable to feed himself, still requires extensive assistance with all ADLs including feeding bathing and toileting, afebrile. Hemodynamically patient is stable, remains in sinus mechanism. 0.9 normal saline at a rate of 20 ML per hour, antibiotic coverage in the form of cefazolin. Remains on IV Lasix at 40 mg every 8 hours, and he is in -770 ML fluid balance over the last 24 hours. Has some residual mild upper and lower extremity edema, lung sounds reveal diminished breath sounds at the bases, no rhonchi, no wheezing. Today's chest x-ray shows mild cardiomegaly with central vessel congestion and small to moderate-sized right greater than left pleural effusions. Ultrasound the chest yesterday showed a right pleural effusion of 12.0 cm pocket. On 08/27/2019 patient seen in follow-up on general medical floor, apparently he appears to be more short of breath today, quite dyspneic, and his FiO2 is up 200% per 100% nonrebreather mask. Repeat chest x-ray shows moderate to large size right pleural effusion, and persistent diffuse left lung infiltrate. Mary Beth fitzpatrick remains on IV diuretics, 40 mg every 8 hours, he is in sinus mechanism. We proceeded with right-sided thoracentesis at the bedside by Dr. So would removal of 1.4 L of turbid dark colored pleural fluid which was sent for analysis. he tolerated procedure well, he remains quite weak. On 08/28/2019 patient seen in follow-up on general medical floor, he is awake and alert, in no acute distress, currently on 12 L of oxygen per high flow nasal cannula, denies any acute distress, lung sounds reveal crackles at bilateral lower bases, patient is status post thoracentesis on the right side on 08/27/2019 with removal of 1.4 L of dark colored pleural fluid which was sent for analysis and cytology. Analysis revealed exudative fluid with high LDH and total protein of 4.1 g. Pleural fluid cultures are pending, Gram stain has shown no organisms thus far. Patient remains on diuretics at 40 mg every 8 hours. And patient has produced 4 L in the urine output in the last 24 hours, and he is in -3.3 L. Today's labs have been reviewed, showing white blood cell count of 11.4, hemoglobin of 8.7, sodium of 131, potassium is 3.4, chloride is 88, CO2 is 33, BUN of 14, creatinine 0.69. Current antibiotic coverage is with IV Zosyn. Objective - Vital Signs Vital signs: Vital Signs Temp 98.6 F 08/28/19 07:05 Pulse 72 08/28/19 07:05 Resp 18 08/28/19 07:05 BP 168/82 08/28/19 07:05 Pulse Ox 94 L 08/28/19 07:05 Intake & Output 08/27/19 08/28/19 08/28/19 18:59 06:59 18:59 Intake Total 50 50 Output Total 550 1250 Balance 50 -500 -1250 Weight 92.5 kg Intake: IV 50 50 ceFAZolin 2 gm In Sodium 50 50 Chloride 0.9% 50 ml @ 100 mls/hr IVPB Q8HR [facility] Rx# :[id number] Output: Urine 550 1250 Other: Voiding Method Urinal Indwelling Catheter Diaper ABP, PAP, CO, CI - Last Documented Arterial Blood Pressure 151/56 - Exam GENERAL EXAM: Awake and alert, oriented to self and place 64-year-old white male, on 12 L per high flow nasal cannula 94%, extremely weak, patient is answering questions appropriately, on command HEAD: Normocephalic/atraumatic. EYES: Normal reaction of pupils, equal size. Conjunctiva pink, sclera white. NOSE: Clear with pink turbinates. THROAT: No erythema or exudates. NECK: No masses, no JVD, no thyroid enlargement, no adenopathy. CHEST: No chest wall deformity. Symmetrical expansion. LUNGS: Equal air entry with bibasilar crackles CVS: Regular rate and rhythm, normal S1 and S2, no gallops, no murmurs, no rubs ABDOMEN: Soft, nontender. No hepatosplenomegaly, normal bowel sounds, no guarding or rigidity. EXTREMITIES: No clubbing, no edema, no cyanosis, 2+ pulses and upper and lower extremities. MUSCULOSKELETAL: Muscle strength and tone normal. SPINE: No scoliosis or deformity SKIN: No rashes CENTRAL NERVOUS SYSTEM: Awake and alert, generally weak, 64-year-old white male, on 8 L of oxygen. No focal deficits, tone is normal in all 4 extremities. - Labs CBC & Chem 7: 08/28/19 08:57 08/28/19 08:57 Labs: Abnormal Lab Results - Last 24 Hours (Table) 08/28/19 08/28/19 Range/Units 08:57 08:57 WBC 11.4 H (3.8-10.6) k/uL RBC 3.47 L (4.30-5.90) m/uL Hgb 8.7 L (13.0-17.5) gm/dL Hct 29.0 L (39.0-53.0) % MCHC 30.1 L (31.0-37.0) g/dL RDW 15.6 H (11.5-15.5) % Plt Count 505 H (150-450) k/uL Neutrophils # 9.3 H (1.3-7.7) k/uL Lymphocytes # 0.9 L (1.0-4.8) k/uL Sodium 131 L (137-145) mmol/L Potassium 3.4 L (3.5-5.1) mmol/L Chloride 88 L (98-107) mmol/L Carbon Dioxide 33 H (22-30) mmol/L Glucose 130 H (74-99) mg/dL Calcium 8.3 L (8.4-10.2) mg/dL Microbiology - Last 24 Hours (Table) 08/27/19 10:10 Gram Stain - Preliminary Pleural Fluid Body Fluid Culture - Preliminary 08/16/19 09:27 Fungal Culture - Preliminary Bronchial Washings - Random Carolina tropicalis Assessment and Plan Plan: Assessment: #1. Acute hypoxic and hypercapnic respiratory failure related to MSSA and E. coli pneumonia and sepsis, requiring intubation and mechanical ventilator support, successfully weaned and extubated on 08/16/2019. Patient had bronchoscopy with BAL on 08/16/2019 and so far the blood cultures are negative #2. Bilateral pleural effusions, status post right-sided thoracentesis today on 08/27/2019 would removal of 1.4 L of turbid dark colored pleural fluid which was sent for analysis #3. MSSA bacteremia #4. Acute kidney injury, improving. Secondary to acute sepsis. #5. Acute sepsis, and acute lactic acidosis on presentation, improved #6. Chronic psychiatric disorder/bipolar disorder. #7. Dyslipidemia. #8. Benign essential hypertension. #9. Shock liver, improved . #10. Acute rhabdomyolysis, resolved #11. Pulmonary hypertension. #12. Staph aureus septicemia, MSSA. #13. Hyperchloremic hypernatremia secondary to diarrhea and intravascular volume depletion. Improved with D5W. #14. Acute hepatic/metabolic encephalopathy, improved #15. Severe generalized weakness #16. Hypernatremia likely related to free water deficit, improved Plan: Lasix to 40 mg every 12 hours, continue antibiotics per ID service recommendations, pleural fluid cultures pending, Gram stain is showing no org anisms thus far, pleural fluid analysis reveals exudative fluid. Await results of the cytology. Today's chest x-ray has been reviewed showing persistent basilar infiltrates and moderate-sized right-sided pleural effusion. We'll obtain CT of the chest without contrast to evaluate for possibility of loculated right-sided pleural effusion and possibility of repeat right-sided thoracentesis. Continue encouraging deep breathing and coughing, and physical therapy. I performed a history & physical examination of the patient and discussed their management with my nurse practitioner, Radha Silva. I reviewed the nurse practitioner's note and agree with the documented findings and plan of care. Lung sounds are positive for diminished breath sounds. The findings and the impression was discussed with the patient. I attest to the documentation by the nurse practitioner. Time with Patient: Less than 30
--- NOTE | 2019-08-28 15:19 | CT ---
EXAMINATION TYPE: CT chest wo con DATE OF EXAM: 08/28/2019 COMPARISON: 08/26/2019 HISTORY: 64-year-old male right lung Pneumonia, pleural effusion TECHNIQUE: Contiguous axial scanning of the chest without IV contrast. Coronal and sagittal reconstru ctions performed. CT DLP: 683.9 mGycm Automated exposure control for dose reduction was used. FINDINGS: Heart normal size with small anterior basilar pericardial fluid, similar to prior. Focal LAD calcific ations. Aorta normal caliber with conventional arterial sobriety anatomy. Mildly enlarged right tracheobronchial angle lymph node at 1.1 cm is unchanged. High right paratrache al lymph nodes bilaterally enlarged 1.1 cm slightly increased from 8 mm, previously. Borderline to mildly enlarged caliber to the main right and left pulmonary arteries are 2.7 and 2.5 c m, respectively, suggests underlying pulmonary arterial hypertension. Some focal opacity measuring 2.6 cm at the right suprahilar level should be reassessed at follow-up t o ensure clearance, axial image 15. Decreased size of the right pleural effusion but with residual moderate to large effusion. There is p artial collapse of the right middle lobe and combination of consolidation and collapse of the entire right lower lobe. [id number]-[id number] left pleural effusion with prominent adjacent consolidation which shows some shifti ng opacities. Improved aeration of the superior segment left lower lobe. Overall increasing crazy paving and confluent groundglass throughout the bilateral lungs shows interv al increase. Written motion artifacts in the visualized upper abdomen. Some layering gravel or tiny gallstones in the nondistended gallbladder. Bones: Reverse left shoulder arthroplasty. Moderate degenerative disc disease throughout. Accentuated lower thoracic kyphosis. Mild dextroconvex scoliosis midthoracic spine. IMPRESSION: 1. INTERVAL DECREASE IN SIZE OF THE RIGHT PLEURAL EFFUSION THOUGH WITH RESIDUAL MODERATE TO LARGE EFF USION. THERE IS CONTINUED COMBINATION OF COLLAPSE AND CONSOLIDATION OF THE ENTIRE RIGHT LOWER LOBE AN D PARTIAL COLLAPSE OF THE RIGHT MIDDLE LOBE. 2. SIMILAR SMALL TO MODERATE LEFT EFFUSION WITH SHIFTING OPACITIES IN THE LEFT LOWER LOBE. 3. WORSENING DIFFUSE PATCHY AND CONFLUENT GROUNDGLASS AND RETICULAR DENSITIES THROUGHOUT THE REMAININ G LUNGS. CORRELATE FOR ATYPICAL PNEUMONIAS OR PULMONARY EDEMA. 4. SOME FOCAL 2.6 CM OPACITY AT THE RIGHT SUPRAHILAR LEVEL ON SOFT TISSUE WINDOWS SHOULD BE REASSESSE D AT FOLLOW-UP TO EXCLUDE A MASS HERE.
[2019-08-29] MEDS: HYDROmorphone 1 MG/ML 1 ML SYRINGE IVP PRN ×3 (01:45→21:03)
[2019-08-29] MEDS: PIPERACILLIN-TAZOBACTAM 3.375 GM in SODIUM CHLORIDE 0.9% 100 ML IVPB SCH ×3 (01:45→17:21)
[2019-08-29] MEDS: oxyCODONE-APAP 5-325MG 1 EACH TAB PO PRN ×4 (03:00→23:34)
--- NOTE | 2019-08-29 05:22 | PN ---
PROGRESS NOTE DATE OF SERVICE: 08/28/2019 REASON FOR FOLLOWUP: Nosocomial pneumonia. INTERVAL HISTORY: Patient is currently afebrile. He seems to be breathing more comfortably today. The patient denies any chest pain. Did have some cough, not bringing up any sputum. No nausea or vomiting. No abdominal pain or diarrhea. PHYSICAL EXAMINATION: On examination, blood pressure is 148/78 with a pulse of 78, temperature 98.4. He is 93% on high-flow oxygen. General description is a middle-aged male lying in bed in no distress. RESPIRATORY SYSTEM: Unlabored breathing, decreased breath sounds at the bases. No wheeze. HEART: S1, S2. Regular rate and rhythm. ABDOMEN: Soft, no tenderness. LABS: Hemoglobin 8.7, white count 11.4, BUN of 14, creatinine 0.69. DIAGNOSTIC IMPRESSION AND PLAN: Patient with pneumonia possible nosocomial in this patient currently covered with Zosyn and Zyvox, will continue. Repeat his sputum and monitor clinical course closely. MMODL / IJN: [id number] /
[2019-08-29] MEDS ORDERED: POTASSIUM CHLORIDE ER 20 MEQ TAB.ER PO STA (07:30)
[2019-08-29] MEDS: METOPROLOL TARTRATE 50 MG TAB PO SCH ×3 (07:47→21:04)
[2019-08-29] MEDS: PANTOPRAZOLE 40 MG TABLET PO SCH (07:47)
[2019-08-29] MEDS: HEPARIN SODIUM,PORCINE 5,000 UNIT/ML 1 ML VIAL SQ SCH ×3 (07:47→23:34)
[2019-08-29] MEDS: FUROSEMIDE 10 MG/ML 4 ML VIAL IV SCH ×2 (07:48→21:02)
[2019-08-29] MEDS: AMIODARONE 200 MG TAB PO SCH ×2 (07:48→21:04)
[2019-08-29] MEDS: SODIUM CHLORIDE 0.9% 500 ML 500 ML IV SCH (07:48)
--- NOTE | 2019-08-29 08:26 | P.PN ---
Subjective This is a pleasant 64 years old male with multiple medical problems who presents initially with acute hypoxic failure, fever and altered mental status patient was sewn intubated and found to have pneumonia secondary to MSSA and E coli, also patient had acute kidney injury and MSSA bacteremia. Call the test was negative 2. Patient has prolonged course in the ICU, please review the records and previous notes Patient is status post extubation on 08/15. He is more alert and awake. And he is saturating and 90s on 60 to oxygen nasal cannula, breathing at a rate of 18/m. Rest of vitals looks stable. He is alert and awake at more stable. CBC and BMP looks stable, magnesium was low at 1.4, recheck magnesium He remains on cefazolin since 08/21 for persistent bacteremia and pneumonia with MSSA. Also he is on Lasix 40 mg 3 times a day and metoprolol 50 mg 3 times a day. 08/27/2019 Patient is seen and examined in the general medical floor, is awake and alert oriented, is slightly dyspneic, is saturating 89-94% on 15 L via nonrebreather. Yesterday he was saturating low 90s on 6 L of oxygen via nasal cannula. Hemodynamically stable. Labs from today are pending. Chest x-ray from this morning: Persistent moderate to large right pleural effusion and moderate left-sided pleural effusion with compressive atelectasis. Associated with some infiltrated and/or edema. Patient remains on cefazolin and Lasix 40 mg 3 times a day. Patient is followed closely by pulmonary team as well. We will follow up with pulmonary about further recommendation 08/28/2019 Patient status post right thoracocentesis about 1.4 L of fluid removed, he is still a little bit tachypneic , he is saturating 90s on 3 L oxygen via high flow nasal cannula. Is awake and alert, no chest pain or significant coughing. WBC trending down to 11.4 K, hemoglobin 8.7, platelets is normal. Sodium 131, potassium 3.4, creatinine is normal. Repeat chest x-ray this morning: Showing stable chest, pneumonia. Patient was found closely by pulmonary team as well He remains on cefazolin and Lasix IV 40 mg 3 times a day. 08/29/2019 Patient status post right thoracocentesis about 1.4 L of fluid removed, today is postprocedure day #2. His breathing is stable, however his distal tachypneic and on 12 L of oxygen with saturation of 91%. No other complaints. WBC is 11.4 yesterday and today pending. As well as other labs CT of the chest done yesterday showing suprahilar opacity 2.6 cm that needs follow-up, left pleural effusion small to moderate, decrease in the right pleural effusion with no loculated effusion. He has worsening bilateral groundglass opacity We will retest for covid, he had 2 negative samples before. Newton catheter in place with dark color urine. His antibiotics has been changed to Zyvox and Zosyn. This along with Lasix IV twice daily Objective - Vital Signs Vital signs: Vital Signs Temp 98.5 F 08/29/19 03:16 Pulse 74 08/29/19 04:00 Resp 21 08/29/19 04:00 BP 160/81 08/29/19 03:16 Pulse Ox 91 L 08/29/19 03:16 Intake & Output 08/28/19 08/29/19 08/29/19 18:59 06:59 18:59 Output Total 1750 3350 Balance -1750 -3350 Weight 87.4 kg Output: Urine 1750 3300 Stool 50 Other: Voiding Method Indwelling Catheter Indwelling Catheter # Voids 1 ABP, PAP, CO, CI - Last Documented Arterial Blood Pressure 151/56 - Exam -GENERAL: The patient is alert and oriented x3, not in any acute distress. Generally weak HEENT: Pupils are round and equally reacting to light. EOMI. No scleral icterus. No conjunctival pallor. Normocephalic, atraumatic. No pharyngeal erythema. No thyromegaly. CARDIOVASCULAR: S1 and S2 present. No murmurs, rubs, or gallops. -PULMONARY: Chest is clear to auscultation, no wheezing or crackles. Decreased breath sounds both basal inferior ABDOMEN: Soft, nontender, nondistended, normoactive bowel sounds. No palpable organomegaly. MUSCULOSKELETAL: No joint swelling or deformity. EXTREMITIES: No cyanosis, clubbing, or pedal edema. NEUROLOGICAL: Gross neurological examination did not reveal any focal deficits. SKIN: No rashes. no petechiae. - Labs CBC & Chem 7: 08/28/19 08:57 08/28/19 08:57 Labs: Abnormal Lab Results - Last 24 Hours (Table) 08/28/19 08/28/19 Range/Units 08:57 08:57 WBC 11.4 H (3.8-10.6) k/uL RBC 3.47 L (4.30-5.90) m/uL Hgb 8.7 L (13.0-17.5) gm/dL Hct 29.0 L (39.0-53.0) % MCHC 30.1 L (31.0-37.0) g/dL RDW 15.6 H (11.5-15.5) % Plt Count 505 H (150-450) k/uL Neutrophils # 9.3 H (1.3-7.7) k/uL Lymphocytes # 0.9 L (1.0-4.8) k/uL Sodium 131 L (137-145) mmol/L Potassium 3.4 L (3.5-5.1) mmol/L Chloride 88 L (98-107) mmol/L Carbon Dioxide 33 H (22-30) mmol/L Glucose 130 H (74-99) mg/dL Calcium 8.3 L (8.4-10.2) mg/dL Microbiology - Last 24 Hours (Table) 08/27/19 11:05 Blood Culture - Preliminary Blood No Growth after 24 hours 08/27/19 10:10 Gram Stain - Preliminary Pleural Fluid Body Fluid Culture - Preliminary Assessment and Plan Assessment: -Acute hypoxic and hypercapnic respiratory failure secondary to MSSA and E. coli pneumonia. patient is currently extubated. Patient is currently on cefazolin -Bilateral pleural effusion, right more than left, pulmonary and the case, possible need thoracocentesis. Patient is currently on Lasix -persistent bacteremia with MSSA. Patient patient was switched to cefazolin. repeat cultures have been negative. --Severe toxic encephalopathy from sepsis and septic shock. Improving. -Acute renal failure possibly acute tubular necrosis patient creatinine improved with IV fluids -Lactic acidosis secondary to sepsis, improved -Hypertension -Hyperlipidemia next and heparin hypertension -Elevated liver enzymes probably secondary to shock liver. -Hepatic encephalopathy: Ammonia level is bit better now. -Troponin leak secondary to myocardial injury from sepsis. -Severe pulmonary hypertension -Generalized weakness and fatigue
[2019-08-29] MEDS: IPRATROPIUM-ALBUTEROL 3 ML NEB INHALATION SCH ×4 (08:29→19:51)
[2019-08-29 10:22] LABS: Basophils % (A) 0 %; Eosinophils # (A) 0.3 k/uL (0-0.7); Eosinophils % (A) 3 %; HCT 25.7 % (39.0-53.0); Hypochromasia Moderate; Lymphocytes # (A) 0.8 k/uL (1.0-4.8); Lymphocytes % (A) 9 %; MCH 26.1 pg (25.0-35.0); MCV 84.2 fL (80.0-100.0); Mean Platelet Volume 6.5; Monocytes # (A) 0.8 k/uL (0-1.0); Monocytes % (A) 9 %; Neutrophils % (A) 77 %; Platelet Count 476 k/uL (150-450); RBC 3.06 m/uL (4.30-5.90); RDW 15.1 % (11.5-15.5)
[2019-08-29 10:49] LABS: African American GFR (CKD) >90 (>60 ml/min/1.73 sqM); Anion Gap 8 mmol/L; Blood Urea Nitrogen 14 mg/dL (9-20); Calcium 7.9 mg/dL (8.4-10.2); Carbon Dioxide 33 mmol/L (22-30); Chloride 87 mmol/L (98-107); Glucose 112 mg/dL (74-99); Magnesium 1.2 mg/dL (1.6-2.3); Non-African American GFR(CKD) >90 (>60 ml/min/1.73 sqM); Potassium 3.5 mmol/L (3.5-5.1); Sodium 128 mmol/L (137-145)
[2019-08-29] MEDS: MAGNESIUM SULFATE-D5W PMX 1 GM in DEXTROSE/WATER 1 100ML.BAG IVPB SCH ×3 (11:37→16:04)
[2019-08-29] MEDS: LINEZOLID 600 MG in DEXTROSE/WATER 1 300ML.BAG IVPB SCH (13:51)
--- NOTE | 2019-08-29 14:19 | P.PN ---
Subjective Progress Note Date: 08/29/19 Principal diagnosis: Acute hypoxic/hypercapnic respiratory failure secondary to MSSA and E. coli pneumonia and sepsis The patient is seen today 08/29/2019 in follow-up on the regular medical floor. He is currently sitting up in bed. Awake and alert in no acute distress. He's maintaining O2 saturations in the mid 90s on 12 L high flow nasal cannula. He's been afebrile. Computed tomography scan of the chest reveals decrease in size of the right pleural effusion though residual moderate to large effusion. There is continued combination of collapse and consolidation of the right lower lobe and partial collapse of the right middle lobe. Small to moderate left pleural e ffusion. Diffuse patchy confluent groundglass reticular densities remain throughout the lungs. There is a focal 2.6 cm opacity at the right suprahilar level of soft tissue windows. He needs increased encouragement regarding the use the incentive spirometer. He needs to increase his activity with assistance. Chest physiotherapy. Bronchial wash was positive for [place] tropicalis. No other bacterial viruses detected thus far. White count 9.0. Hemoglobin 8.0. Sodium 128. Potassium 3.5. Bicarb 33. Creatinine 0.68. He remains on DuoNeb inhalations, Zosyn and Linezolid, continue on IV diuretics. Remains in a negative balance. Objective - Vital Signs Vital signs: Vital Signs Temp 97.9 F 08/29/19 07:00 Pulse 76 08/29/19 11:20 Resp 20 08/29/19 08:00 BP 160/81 08/29/19 07:00 Pulse Ox 95 08/29/19 07:00 Intake & Output 08/28/19 08/29/19 08/29/19 18:59 06:59 18:59 Intake Total 300 Output Total 1750 3350 375 Balance -1750 -3350 -75 Weight 87.4 kg Intake: Intake, IV Titration 300 Amount Magnesium Sulfate-D5w Pmx 200 1 gm In Dextrose/Water 1 100ml.bag @ 100 mls/hr IVPB Q1H [facility] Rx#: [id number] Piperacillin-Tazobactam 3 100 .375 gm In Sodium Chloride 0.9% 100 ml @ 25 mls/hr IVPB Q8HR [facility] Rx# :[id number] Output: Urine 1750 3300 375 Stool 50 Other: Voiding Method Indwelling Catheter Indwelling Catheter Indwelling Catheter # Voids 1 ABP, PAP, CO, CI - Last Documented Arterial Blood Pressure 151/56 - Exam GENERAL EXAM: Awake and alert, pleasant 64-year-old male patient, on 12 L of oxygen and the pulse ox of 95%, extremely weak HEAD: Normocephalic/atraumatic. EYES: Normal reaction of pupils, equal size. Conjunctiva pink, sclera white. NOSE: Clear with pink turbinates. THROAT: No erythema or exudates. NECK: No masses, no JVD, no thyroid enlargement, no adenopathy. CHEST: No chest wall deformity. Symmetrical expansion. LUNGS: Equal air entry with crackles in the bilateral posterior bases right greater than left, diminished CVS: Regular rate and rhythm, normal S1 and S2, no gallops, no murmurs, no rubs ABDOMEN: Soft, nontender. No hepatosplenomegaly, normal bowel sounds, no guarding or rigidity. EXTREMITIES: No clubbing, 1-2+ edema, no cyanosis, 2+ pulses and upper and lower extremities. MUSCULOSKELETAL: Muscle strength and tone normal. SPINE: No scoliosis or deformity SKIN: No rashes CENTRAL NERVOUS SYSTEM: Awake and alert, generally weak, no focal deficits, tone is normal in all 4 extremities. - Labs CBC & Chem 7: 08/29/19 09:47 08/29/19 09:47 Labs: Abnormal Lab Results - Last 24 Hours (Table) 08/29/19 08/29/19 Range/Units 09:47 09:47 RBC 3.06 L (4.30-5.90) m/uL Hgb 8.0 L (13.0-17.5) gm/dL Hct 25.7 L (39.0-53.0) % Plt Count 476 H (150-450) k/uL Lymphocytes # 0.8 L (1.0-4.8) k/uL Sodium 128 L (137-145) mmol/L Chloride 87 L (98-107) mmol/L Carbon Dioxide 33 H (22-30) mmol/L Glucose 112 H (74-99) mg/dL Calcium 7.9 L (8.4-10.2) mg/dL Magnesium 1.2 L (1.6-2.3) mg/dL Microbiology - Last 24 Hours (Table) 08/27/19 11:05 Blood Culture - Preliminary Blood No Growth after 24 hours 08/27/19 10:10 Gram Stain - Preliminary Pleural Fluid Body Fluid Culture - Preliminary Assessment and Plan Assessment: #1. Acute hypoxic/hypercapnic respiratory failure related to MSSA and E. coli pneumonia and sepsis, requiring intubation and mechanical ventilator support, successfully weaned and extubated on 08/16/2019. Patient had bronchoscopy with BAL on 08/16/2019 and so far the cultures are negative. Cytology pending. Computed tomography scan of the chest reveals interval decrease in size of the right pleural effusion though with residual moderate to large effusion. There is continued combination of collapse and consolidation of the entire right lower lobe and partial collapse of the right middle lobe. Similar small to moderate left pleural effusion. Diffuse patchy and confluent groundglass reticular densities throughout the remaining lungs. Focal 2.6 cm opacity at the right suprahilar level and soft tissue windows. Cannot exclude a mass. #2. Suspect aspiration pneumonia. #3. MSSA bacteremia #4. Acute kidney injury, improving. Secondary to acute sepsis. #5. Acute sepsis, and acute lactic acidosis on presentation, improved #6. Chronic psychiatric disorder/bipolar disorder. #7. Dyslipidemia. #8. Benign essential hypertension. #9. Shock liver, improved . #10. Acute rhabdomyolysis, resolved #11. Pulmonary hypertension. #12. Staph aureus septicemia, MSSA. #13. Hyperchloremic hypernatremia secondary to diarrhea and intravascular volume depletion. Improved with D5W. #14. Acute hepatic/metabolic encephalopathy, improved #15. Severe generalized weakness, critical illness polyneuropathy #16. Hypernatremia likely related to free water deficit, improved Plan: The patient was seen and evaluated by Dr. So CAT scan and labs reviewed Continue to encourage the increased use the incentive spirometer Chest physiotherapy Titrate down the FiO2 as tolerated Increase his activity as tolerated May need repeat bronchoscopy and/or thoracentesis We will continue to follow and make further recommendations based on his clinical status I, the cosigning physician, performed a history & physical examination of the pa maris. Lungs sounds with bilateral crackles in the posterior bases right greater than left. Maintaining good O2 saturations in the 90s on 12L per minute per nasal canula. I discussed the assessment and plan of care with my nurse practitioner, Rochelle Galvan. I attest to the above note as dictated by her.
[2019-08-29] MEDS ORDERED: MAGNESIUM SULFATE-D5W PMX 1 GM in DEXTROSE/WATER 1 100ML.BAG IVPB ONE (22:56)
[2019-08-30] MEDS: LINEZOLID 600 MG in DEXTROSE/WATER 1 300ML.BAG IVPB SCH ×3 (00:35→22:45)
--- NOTE | 2019-08-30 02:46 | PN ---
PROGRESS NOTE DATE OF SERVICE: 08/29/2019 REASON FOR FOLLOWUP: Nosocomial pneumonia. INTERVAL HISTORY: Patient is currently afebrile, has been breathing slightly comfortably. Denies having any chest pain. Some cough, but no sputum. No nausea, no vomiting. No abdominal pain or diarrhea. PHYSICAL EXAMINATION: Blood pressure 144/74 with a pulse of 72, temperature 98.2. He is 92% on high-flow oxygen. General description is a middle-aged male up in the chair in no distress. RESPIRATORY SYSTEM: Unlabored breathing, decreased breath sounds at the bases. No wheeze. HEART: S1, S2. Regular rate and rhythm. ABDOMEN: Soft, no tenderness. LABS: Hemoglobin 8, white count 9, BUN of 14, creatinine 0.68. DIAGNOSTIC IMPRESSION AND PLAN: Patient with initial aspiration pneumonia with MSSA bacteremia that has been adequately treated now with concern for possible nosocomial pneumonia. The patient seemed to have clinically responded to the Zyvox and Zosyn to continue. Will followup culture and monitor clinical course closely. MMODL / IJN: [id number] /
[2019-08-30] MEDS: PIPERACILLIN-TAZOBACTAM 3.375 GM in SODIUM CHLORIDE 0.9% 100 ML IVPB SCH ×4 (02:48→22:45)
[2019-08-30] MEDS: HYDROmorphone 1 MG/ML 1 ML SYRINGE IVP PRN ×3 (05:07→19:34)
[2019-08-30] MEDS: IPRATROPIUM-ALBUTEROL 3 ML NEB INHALATION SCH ×5 (06:08→20:31)
[2019-08-30] MEDS: FUROSEMIDE 10 MG/ML 4 ML VIAL IV SCH ×2 (07:19→21:08)
[2019-08-30] MEDS: HEPARIN SODIUM,PORCINE 5,000 UNIT/ML 1 ML VIAL SQ SCH ×3 (07:19→22:45)
[2019-08-30] MEDS: oxyCODONE-APAP 5-325MG 1 EACH TAB PO PRN ×3 (07:19→21:08)
[2019-08-30] MEDS: AMIODARONE 200 MG TAB PO SCH ×2 (07:19→21:09)
[2019-08-30] MEDS: METOPROLOL TARTRATE 50 MG TAB PO SCH ×3 (07:20→22:45)
[2019-08-30] MEDS: SODIUM CHLORIDE 0.9% 500 ML 500 ML IV SCH (07:20)
[2019-08-30] MEDS: PANTOPRAZOLE 40 MG TABLET PO SCH (07:20)
--- NOTE | 2019-08-30 07:26 | P.PN ---
Subjective This is a pleasant 64 years old male with multiple medical problems who presents initially with acute hypoxic failure, fever and altered mental status patient was sewn intubated and found to have pneumonia secondary to MSSA and E coli, also patient had acute kidney injury and MSSA bacteremia. Call the test was negative 2. Patient has prolonged course in the ICU, please review the records and previous notes Patient is status post extubation on 08/15. He is more alert and awake. And he is saturating and 90s on 60 to oxygen nasal cannula, breathing at a rate of 18/m. Rest of vitals looks stable. He is alert and awake at more stable. CBC and BMP looks stable, magnesium was low at 1.4, recheck magnesium He remains on cefazolin since 08/21 for persistent bacteremia and pneumonia with MSSA. Also he is on Lasix 40 mg 3 times a day and metoprolol 50 mg 3 times a day. 08/27/2019 Patient is seen and examined in the general medical floor, is awake and alert oriented, is slightly dyspneic, is saturating 89-94% on 15 L via nonrebreather. Yesterday he was saturating low 90s on 6 L of oxygen via nasal cannula. Hemodynamically stable. Labs from today are pending. Chest x-ray from this morning: Persistent moderate to large right pleural effusion and moderate left-sided pleural effusion with compressive atelectasis. Associated with some infiltrated and/or edema. Patient remains on cefazolin and Lasix 40 mg 3 times a day. Patient is followed closely by pulmonary team as well. We will follow up with pulmonary about further recommendation 08/28/2019 Patient status post right thoracocentesis about 1.4 L of fluid removed, he is still a little bit tachypneic , he is saturating 90s on 3 L oxygen via high flow nasal cannula. Is awake and alert, no chest pain or significant coughing. WBC trending down to 11.4 K, hemoglobin 8.7, platelets is normal. Sodium 131, potassium 3.4, creatinine is normal. Repeat chest x-ray this morning: Showing stable chest, pneumonia. Patient was found closely by pulmonary team as well He remains on cefazolin and Lasix IV 40 mg 3 times a day. 08/29/2019 Patient status post right thoracocentesis about 1.4 L of fluid removed, today is postprocedure day #2. His breathing is stable, however his distal tachypneic and on 12 L of oxygen with saturation of 91%. No other complaints. WBC is 11.4 yesterday and today pending. As well as other labs CT of the chest done yesterday showing suprahilar opacity 2.6 cm that needs follow-up, left pleural effusion small to moderate, decrease in the right pleural effusion with no loculated effusion. He has worsening bilateral groundglass opacity We will retest for covid, he had 2 negative samples before. Newton catheter in place with dark color urine. His antibiotics has been changed to Zyvox and Zosyn. This along with Lasix IV twice daily 08/30/2019 Patient status post right thoracocentesis about 1.4 L of fluid removed, today is postprocedure day #3. He still saturating 90s on 12 L oxygen since yesterday. Overnight he got some breathing difficulty was relieved with bronchodilator therapy, he has tenacious phlegm with occasional coughing. He is not in respiratory distress now. Abdomen is benign and he has Newton catheter with clear urine. Afebrile since 08/26 when he had had a degree Fahrenheit. WBCs back to normal yesterday 9.0K, sodium 128. Creatinine is normal, Low magnesium was replaced He remains on Lasix IV and his antibiotics has been changed to Zyvox and Zosyn He might need a repeat thoracocentesis and/or bronchoscopy Objective - Vital Signs Vital signs: Vital Signs Temp 98.5 F 08/30/19 01:00 Pulse 72 08/30/19 06:16 Resp 20 08/30/19 04:00 BP 149/70 08/30/19 01:00 Pulse Ox 90 L 08/30/19 06:09 Intake & Output 08/29/19 08/30/19 08/30/19 18:59 06:59 18:59 Intake Total 300 Output Total 825 2400 Balance -525 -2400 Weight 91 kg Intake: Intake, IV Titration 300 Amount Magnesium Sulfate-D5w Pmx 200 1 gm In Dextrose/Water 1 100ml.bag @ 100 mls/hr IVPB Q1H [facility] Rx#: [id number] Piperacillin-Tazobactam 3 100 .375 gm In Sodium Chloride 0.9% 100 ml @ 25 mls/hr IVPB Q8HR [facility] Rx# :[id number] Output: Urine 825 2400 Other: Voiding Method Indwelling Catheter Indwelling Catheter # Voids 1 ABP, PAP, CO, CI - Last Documented Arterial Blood Pressure 151/56 - Exam -GENERAL: The patient is alert and oriented x3, not in any acute distress. Generally weak HEENT: Pupils are round and equally reacting to light. EOMI. No scleral icterus. No conjunctival pallor. Normocephalic, atraumatic. No pharyngeal erythema. No thyromegaly. CARDIOVASCULAR: S1 and S2 present. No murmurs, rubs, or gallops. -PULMONARY: Chest is clear to auscultation, no wheezing or crackles. Decreased breath sounds both basal inferior ABDOMEN: Soft, nontender, nondistended, normoactive bowel sounds. No palpable organomegaly. MUSCULOSKELETAL: No joint swelling or deformity. EXTREMITIES: No cyanosis, clubbing, or pedal edema. NEUROLOGICAL: Gross neurological examination did not reveal any focal deficits. SKIN: No rashes. no petechiae. - Labs CBC & Chem 7: 08/29/19 09:47 08/29/19 09:47 Labs: Abnormal Lab Results - Last 24 Hours (Table) 08/29/19 08/29/19 Range/Units 09:47 09:47 RBC 3.06 L (4.30-5.90) m/uL Hgb 8.0 L (13.0-17.5) gm/dL Hct 25.7 L (39.0-53.0) % Plt Count 476 H (150-450) k/uL Lymphocytes # 0.8 L (1.0-4.8) k/uL Sodium 128 L (137-145) mmol/L Chloride 87 L (98-107) mmol/L Carbon Dioxide 33 H (22-30) mmol/L Glucose 112 H (74-99) mg/dL Calcium 7.9 L (8.4-10.2) mg/dL Magnesium 1.2 L (1.6-2.3) mg/dL Microbiology - Last 24 Hours (Table) 08/27/19 11:05 Blood Culture - Preliminary Blood No Growth after 48 hours 08/27/19 10:10 Gram Stain - Preliminary Pleural Fluid Body Fluid Culture - Preliminary Assessment and Plan Assessment: -Acute hypoxic and hypercapnic respiratory failure secondary to MSSA and E. coli pneumonia. patient is currently extubated. Patient is currently on cefazolin -Bilateral pleural effusion, right more than left, pulmonary and the case, possible need thoracocentesis. Patient is currently on Lasix -persistent bacteremia with MSSA. Patient patient was switched to cefazolin. repeat cultures have been negative. --Severe toxic encephalopathy from sepsis and septic shock. Improving. -Acute renal failure possibly acute tubular necrosis patient creatinine improved with IV fluids -Lactic acidosis secondary to sepsis, improved -Hypertension -Hyperlipidemia next and heparin hypertension -Elevated liver enzymes probably secondary to shock liver. -Hepatic encephalopathy: Ammonia level is bit better now. -Troponin leak secondary to myocardial injury from sepsis. -Severe pulmonary hypertension -Generalized weakness and fatigue
--- NOTE | 2019-08-30 11:28 | XR ---
EXAMINATION TYPE: XR chest 1V DATE OF EXAM: 08/30/2019 COMPARISON: 08/28/2019 INDICATION: History of pneumonia TECHNIQUE: Single frontal view of the chest is obtained. FINDINGS: The heart size is normal. The pulmonary vasculature is prominent. There is diffuse increased lung markings in the left lung. Moderate right pleural fluid collection is present. Left shoulder prosthesis is present. IMPRESSION: 1. Increasingly diffuse infiltrate throughout the left lung. Previous left lower lobe consolidation h as resolved. 2. Moderate right pleural fluid may be partially loculated but stable over the interval.
[2019-08-30 11:56] LABS: Basophils % (A) 0 %; Eosinophils # (A) 0.4 k/uL (0-0.7); Eosinophils % (A) 4 %; HGB 7.6 gm/dL (13.0-17.5); Hypochromasia Moderate; Lymphocytes # (A) 1.1 k/uL (1.0-4.8); Lymphocytes % (A) 11 %; MCH 25.2 pg (25.0-35.0); MCHC 30.5 g/dL (31.0-37.0); MCV 82.7 fL (80.0-100.0); Mean Platelet Volume 6.8; Monocytes # (A) 0.8 k/uL (0-1.0); Monocytes % (A) 8 %; Neutrophils # (A) 7.5 k/uL (1.3-7.7); Neutrophils % (A) 75 %; Platelet Count 473 k/uL (150-450); RBC 3.02 m/uL (4.30-5.90); RDW 15.4 % (11.5-15.5)
[2019-08-30 12:10] LABS: African American GFR (CKD) >90 (>60 ml/min/1.73 sqM); Anion Gap 11 mmol/L; Blood Urea Nitrogen 18 mg/dL (9-20); Calcium 7.9 mg/dL (8.4-10.2); Carbon Dioxide 30 mmol/L (22-30); Chloride 86 mmol/L (98-107); Glucose 101 mg/dL (74-99); Magnesium 1.8 mg/dL (1.6-2.3); Non-African American GFR(CKD) 81 (>60 ml/min/1.73 sqM); Potassium 3.5 mmol/L (3.5-5.1); Sodium 127 mmol/L (137-145)
--- NOTE | 2019-08-30 13:41 | P.PN ---
Subjective Progress Note Date: 08/30/19 Principal diagnosis: Acute hypoxic and hypercapnic respiratory failure second to aspiration pneumonia 62-year-old male patient who was brought into the emergency department today unresponsive and profoundly hypoxic. The patient was in acute hypoxic respiratory failure. Initial pulse ox was in the mid 30s. Apparently he was not also communicating or responding. He was apparently awake and alert on the morning prior to him coming to the hospital according to the landlord. The landlord noted that the patient was appearing ill and called EMS. Upon EMS arrival, the patient was found to be obtunded. He had a fever of 10 1F. He was found to be hypoxic, brought into the emergency room he was found to be tachycardic and hypoxic with was placed on supplemental oxygen without any benefit and ultimately the patient was intubated and placed on a mechanical ventilator. COVID 19 is suspected. The patient was placed on the opposite isolation. The patient had the appropriate nasal swabs. Chest x-ray showed bilateral airspace disease consistent with pneumonia in addition to interstitial pneumonitis. ET tube was around 3.7 cm above the mario. NG tube was extending into the left abdomen. There was a right upper lobe consolidation noted and a tiny right-sided pleural effusion. No evidence of any pneumothorax. There was bilateral infiltrates and coarse interstitium and a prosthetic left shoulder. The patient has a white cell count of 4.9. He had some lymphopenia. His platelet counts is no within normal limits. The blood gases was done on 100% nonrebreather showed a pH of 7.17 with a pCO2 of 66 and pO2 of 45. The patient also had an acute kidney injury with a creatinine of 1.65. Epigastric level was at 3.1. The ALT is at 1106 with an ammonia level of 146 and a bilirubin of 0.5 and an albumin of 4.1. The serum alcohol was negative and the patient has negative salicylates and acetaminophen. Influenza screen has been negative. Covid 19 analysis still pending for now. This patient lives with a sister in a house and he collects Social Security disability. He has had issues with mental health and the patient has been dealing with bipolar disorder and chronic insomnia of many years duration. He has also chronic anxiety disorder. No history of any previous suicidal ideation or intent. No delusions or hallucinations based on recent psychiatric evaluation that was in the hospital. On today's evaluation of 62,020 the patient is being seen in follow-up in the intensive care unit. Noted the patient is intubated on a mechanical ventilator and is suspected to have Covid 19. He is afebrile on today's evaluation. He remains on a mechanical ventilator. He is sedated with propofol running at 20 mg per KG per minute. He was given a total of 5 L of IV fluid as the patient was hypotensive and currently the fluid is running at 75 mL an hour of normal saline. He remains on norepinephrine infusion at 0.08 mg per KG per minute. He remains on a mechanical ventilator. His assist-control mode at the rate of 28 with a tidal volume of 450 and FiO2 of 60% with a PEEP of 15. His blood gases showed a pH of 7.12 with a pCO2 of 58 and pO2 of 187. This was done and FiO2 of 100%. Otherwise, the patient has blood abnormalities it is consistent with Covid 19 infection. He has a rhabdomyolysis with a CPK level of 6114. He has also transaminitis with a AST of 3354, ALT of 1962, and his LDH level is at 8367. His creatinine is at 1.2, which is up from a baseline of 1.65 with fluid resuscitation. His current minute ventilation is 13 L. I made recommendations to keep the same vent setting. Based on the blood on of some non-anion gap metabolic acidosis, and with recommendations to start the patient on bicarb infusion and addition to 2 A of IV bicarb pushes. He was having temperatures throughout the night with temperature maximum 100.8. Current temperature is 99.6. He'll be started on enteral feeding for nutritional support. Covid 19 evaluation is still pending for now. On today's evaluation of 08/07/2019 and seeing this patient for a follow-up. The patient has sedated with propofol. He was given a sedation holiday yesterday and his neurologic exam was suboptimal as the patient did not show adequate neurologic recovery. Based on that, a CAT scan of the brain was done and the CAT scan of the brain was negative for any acute abnormalities. Noted the patient was profoundly hypoxic and at time of admission to the hospital and there is a suspicion for hypoxic encephalopathy. Contrary to my expectations, the patient checked negative for Covid 19 infection. The blood culture came back positive for staph aureus. Currently is on a combination of cefepime and vancomycin. The patient was resuscitated with more than 5 L of normal saline and the patient is also requiring some pressors for hemodynamic support and levo fed was started and 8 on was placed on hold as of 5:00 this morning. Urine output in the order of 40 mL an hour. In terms of sedation, the patient is on propofol at 20 g per KG per minute. Note that the patient had issues with a significant leak around his orotracheal tube. This was replaced yesterday by HOUSE MANAGER without any major difficulties. This morning, he remains on a VC plus mode with a rate of 28 and a tidal volume of 450 and a nighttime of 1 second with a PEEP of 15 with an FiO2 of 50%. Blood gases from today showed a pH of 7.36 with a pCO2 of 37 and pO2 of 92. Chest x-ray showing diffuse bilateral pulmonary infiltrates. His cardiac rhythm is still in atrial fibrillation. He is on amiodarone maintenance at 0.5 mg per minute. The patient has a creatinine of 1.5. There is still evidence of transaminitis with elevation of the AST and ALP and both are improving. LDH level is elevated at 5738. CPKs improving at 2431. C-reactive protein is elevated at 622. Note that the LDH is on the decline, CPKs on the decline on today's evaluation. LFTs are also improving. On 08/08/2019 on seeing this patient for a follow-up. The patient has been off sedation since yesterday. I am not seeing an adequate neurologic recovery in this patient. There may be a component of hepatic encephalopathy in the patient's went into shock liver. Nevertheless, his ammonia is dropping. He is on lactulose. He is producing adequate amount of bowel activity. He is undergoing training the painful stimulation. Pupils are about 3 mm in size and there is C-reactive to light. There is a very weak cough and a gag. Absolutely no response to deep painful stimulation. No seizure activity has been noted. Neurology will be consulted on the case. EEG will be ordered. Meanwhile, the patient is clearly becoming a case of possible aspiration staphylococcal pneumonia. His blood culture came back positive for staph aureus. His sputum positive for staph. He also has gram-negative bacillus in his sputum which stock turner to be E. coli. For now, the cultures and the blood to be MSSA. The patient was on examination of cefepime and vancomycin. I dropped the cefepime and I u tilized Zosyn to give him better anaerobic coverage as the patient clearly has a history of aspiration. Meanwhile, the Covid test came back negative. The patient remains on a mechanical ventilator. On today's chest x-ray there is worsening over the bilateral pulmonary infiltrates worse on the right. ET tube remains in a good location. The patient remains on an assist-control mode at the rate of 18 with a tidal volume of 450 and FiO2 of 50% with a PEEP of 10. Blood gas showed a pH of 7.46 with a pCO2 of 34 and pO2 of 103. CVP is ranging between 12 and 14. He remains in atrial fibrillation. He is on amiodarone drip maintenance at 0.5 mg per minute. He is also on normal saline at the rate of 75 mL an hour. His age fibrillation is under better control and he is on no pressors. He can tolerate beta blockers. He is having low-grade fever still. The white cell count is up to 22. The shock liver is improving including the AST and ALP level. The LDH level was elevated. The CPKs also improving is down to 2431. His ammonia level is down to 85. His coagulation profile is within normal limits. On 08/09/2019 the patient is being seen in follow-up in intensive care unit. Unfortunately, the patient has been off sedation for more than 24 hours and the patient is still not showing significant neurologic recovery. The patient is not following any specific commands. In fact he is not even withdrawing to deep painful stimulation. No seizure activity has been noted. EEG was done and showed diffuse slowing and it was consistent with severe encephalopathy which could be toxic metabolic encephalopathy versus hypoxic encephalopathy. The patient will be kept off sedation. Meanwhile, the ammonia level is progressively coming down and is down to 58. He continues to have a week cough and gag reflex. The patient remains in atrial fibrillation. The patient remained on assist control mode of ventilation. He is on VC plus mode at the rate of 28 with a tidal volume of 450 and FiO2 of 50% with a PEEP of 10. The blood gases from today shows a component of respiratory alkalosis with a pH of 7.5 with a pCO2 of 36 and pO2 of 71. The white cell count of 23. The patient has developed some hyperchloremic hypernatremia in the sodium level is up to 147 with a chloride of 114. Renal function is stable. The patient is receiving vital high protein at the rate of 52 mL an hour. In terms of atrial fibrillation, I had utilized back the amiodarone drip at 0.5 mg per minute and the patient is also on metoprolol 50 mg by mouth 3 times a day. Heart rate is still slightly tachycardic and will continue the same regimen for now. The patient was given a dose of Lasix yesterday. The patient Is producing better urine output for now. His weight is still up. The CPKs down to 395. The AST is down to 1000. ALT is down to 58. LDH is down to 03/10/2007. Calcium level at 7.1. No other significant issues otherwise over the past 24 hours. He remains on a combination of Zosyn and vancomycin. The blood culture and the sputum culture was positive for MSSA. The sputum culture was positive for E. coli. The chest x-ray still showing rather consolidation worse on the right compared to the left. ET tube remains in a good location. On 08/10/2019 the patient has been approximately 72 hours of sedation. Unfortunately, we do not see any significant neurologic recovery the patient's condition. He is still not responding to any verbal or deep painful stimulation. He remains completely unresponsive. On this morning, I have a mild assist-control mode of ventilation with a VC plus mode at a tidal volume of 450 FiO2 of 50% with a PEEP of 10 and the respiratory rate of 24. His blood gases showed a component of respiratory alkalosis. His pH is at 7.53 with a pC O2 of 39 pO2 of 63. Chest x-ray still showing bilateral pneumonia bilateral airspace disease worse on the right along with cardiomegaly and bilateral pleural effusions. ET tube is in a good location. The patient's white cell count is at 27. The patient is still having episodes of fever. Most recent blood culture from 2 days ago was positive for MSSA and MSSA was also cultured and his lungs and it was cultured also E. coli in his lungs. We are still thinking that this was an aspiration pneumonia. Shock liver, his LFTs are nearly normalized, severe has also dropped and ammonia level is being monitored is still elevated at 83. The lactulose was held as the patient was having liquidy stool and the patient had become also hyperchloremic and the sodium level is up to 149. He is receiving free water supplements with NG for now. He is also on vital high protein. In terms of his atrial fibrillation, rate is under better control with a combination of amiodarone maintenance of 0.5 mg per minute and Cardizem drip at 10 mg an hour. The patient is also on IV heparin. The active issue for now is his altered mentation. On 08/11/2019, I'm seeing the patient for a follow-up in intensive care unit. His been off sedation for the past 92 hours. On today's evaluation that is some slight grimacing upon very deep painful stimulation and upon pinching on his upper chest. For the most part he remains unresponsive. No seizure activity. Shock liver has recovered. Ammonia level is on the decline. I started the patient on rifixamine 550 mg by mouth twice a day yesterday and ammonia level is down to 45. I suspect a component of hypoxic encephalopathy although the possibility of metabolic encephalopathy cannot be completely ruled out. He is on a mechanical ventilator. No change in the vent setting. No changes in the x-ray findings as the patient has extensive airspace disease bilaterally more so on the right lower lobe. On the ventilator, the patient is on a VC plus mode with a tidal volume of 450 and FiO2 of 50% with a PEEP of 10 and tidal volume of 450 with a rate of 16. The patient's blood gas showed a pH of 7.52 with a pCO2 of 39 and pO2 of 67. On and off he was still having fever yesterday. Repeat blood cultures were sent. He remains on examination Zosyn and vancomycin. He is tolerating his enteral feeding for nutritional support. Is on IV heparin drip regarding his atrial fibrillation. He remains on amiodarone drip and oral metoprolol for rate control. He is also started on Cleviprex which is running at 2 mg an hour for tighter blood pressure control. The active issue remains his altered mentation with a possibility of him having hypoxic encephalopathy with the details as mentioned above. Patient was reevaluated today on 08/12/19, remains on mechanical ventilation, his ventilator settings are assist control rate 16 volume control plus at 450 FiO2 at 50% and PEEP of 10. ABG showed a pO2 of 79 pCO2 of 39 pH of 7.52. Chest x- ray continues to show bilateral pleural effusions, and by basilar space disease, hence I recommended ultrasound to evaluate for possible thoracentesis if the effusion isn't large enough to be drained. However the ultrasound showed minimal pleural effusions bilaterally, insufficient for thoracentesis. Patient remains on Zosyn and vancomycin, and he hasn't MSSA bacteremia, sputum is positive for E. coli and staph aureus. Neurologically the patient is about the same, however the only change noted today is the fact that the patient tries to open his eyes and grimacing upon deep painful stimuli. Remains off narcotics and sedatives. WBC count is up to 25.3 today slightly improved compared to yesterday. Basic metabolic profile is basically normal and his BUN is improving down to 38 creatinine is 0.55. Liver enzymes are steadily improving. Ammonia is 60 today. It was as high as 146 about a week ago remains on rifaximin. Reevaluated today on, patient remains in the ICU, intubated and mechani raul ventilated. Yesterday the patient had significant agitation and he had to be placed back on propofol. This morning the propofol was discontinued, and the patient seems to be more responsive to stimuli/verbal stimuli patient is opening his eyes, wiggling his toes, seems to be slow but at least the best I have seen him so far. Hence I kept the propofol off, and I will give the patient a chance to go on a weaning trial if possible. He is not quite ready to start weaning but we will continue to hold propofol and address hourly today for possible placement on pressure support and CPAP. Presently the patient is on mechanical ventilation with assist control rate of 16, volume is 450 FiO2 dropped down from 60% to 50% and his PEEP was decreased to 8. His ABG this morning showed a pO2 of 124 pCO2 of 48 pH of 7.44 patient is on propofol which is presently on hold. He is on clindamycin and for his MSSA bacteremia. He is on enteral tube feeding. Chest x-ray continues to show small areas of pneumonia bilaterally, and possibly a small right sided pleural effusion not large enough to consider thoracentesis as noted on ultrasound On 08/14/2019 patient seen in follow-up, in the intensive care unit, he remains intubated, on mechanical ventilator, on assist control mode of ventilation with FiO2 of 50%. This morning blood gases showed pO2 of 112, pCO2 45, and pH of 7.48. IV 0.9 normal saline at a rate of 10 ML per hour, heparin per weight- based protocol, and Diprivan has been on hold. Patient is lethargic although she is waking up and follow commands, wiggling toes on command. Appears to be in no acute distress, today's chest x-ray has been reviewed showing diffuse pleural parenchymal changes consistent with pulmonary edema or ARDS. Patient continues on Kefzol and Clindamycin for MSSA and E. coli pneumonia and bacteremia, follow-up blood cultures have been negative. Patient has been afebrile, hemodynamically stable, not on any vasopressors, today's labs have been reviewed, leukocytosis is down trending, WBC is down to 18.7, hemoglobin is 9.7, sodium is 142, potassium is 3.3, chloride is 108, CO2 32, BUN is 37 and creatinine 0.53. Patient in sinus rhythm, he remains on oral amiodarone, and heparin infusion for anticoagulation. Diuretics with Lasix 40 mg every 12 hours On 08/19/2019 patient seen in follow-up in intensive care unit. Patient was successfully weaned and extubated on 08/16/2019, he is currently on 6 L of oxygen the pulse ox of 94%, afebrile, hemodynamically patient is stable, patient is on IV fluids 0.9 normal saline at a rate of 10 ML per hour, he is very generally weak, he can hardly move his fingers. Patient is awake, oriented to self and the place, he is following command. He denies any acute distress, lung sounds reveal scattered rhonchi bilaterally, patient is able to cough and expectorate yellowish colored phlegm at times. Physical therapy has been working with the patient however patient is extremely weak, and has only been able to sit in the chair position in bed. Upper and lower extremities are positive for 1+ edema, patient remains on daily dose of oral Lasix at 40 mg daily. He is in -150 ML fluid balance over the last 24 hours. We'll give the patient additional dose of IV Lasix 60 mg this morning, this morning patient is requiring increasing amount of oxygen, and he was placed on BiPAP with pressures of 12 and 5 and 50%. This morning's chest x-ray shows increasing diffuse bilateral airspace disease likely related to pulmonary edema with persistent moderate pleural effusions. Patient did have a bedside bronchoscopy with bronchoalveolar lavage on 08/16/2019, and Gram stain has shown no organisms. H is sputum culture from 08/05/2019 was positive for MSSA, and E. coli, and blood cultures from 08/05/2019, and 08/07/2019 were positive for MSSA. Patient is on clindamycin and For Antibiotic Coverage. He is currently in sinus rhythm, he is on Eliquis for paroxysmal atrial fibrillation and oral Cordarone. On 08/20/2019 patient seen in follow-up in intensive care unit, yesterday he required placement on BiPAP later to his increased dyspnea and hypoxia. He tolerated it well, this morning she is on 8 L per high flow nasal cannula with a pulse ox of 94-97%, mildly dyspneic with conversation, but no acute distress, BiPAP was removed at 2100 last night. Patient was given additional Lasix yester day, and he is in -1.2 L over the last 24 hours. Still has some 1+ pitting edema involving upper and lower extremities. Still is very weak, and unable to lift up his arms off the bed. Lung sounds reveal scattered rhonchi, but less congested on today's exam. he is on full liquid diet, but requires intensive assistance with ADLs including feeding. Physical therapy is on consult and is following with the patient. Low-grade fevers with a T-max 99.0F over the last 24 hours, hemodynamically stable, IV fluids included D5W at a rate of 50 MLS per hour. We will switch to 0.9 normal saline at a 20 ML per hour, patient is on oral Eliquis for paroxysmal atrial fibrillation, and currently remains in sinus rhythm. Remains on Diamox. On 08/26/2019 patient seen in intensive care unit, he is awake and alert, in no acute distress, he is oriented 3, likely on 6 L of oxygen the pulse ox of 88-92%, no worsening dyspnea, he remains weak, however stronger compared to last week. He is participating with physical therapy, still unable to feed himself, still requires extensive assistance with all ADLs including feeding bathing and toileting, afebrile. Hemodynamically patient is stable, remains in sinus mechanism. 0.9 normal saline at a rate of 20 ML per hour, antibiotic coverage in the form of cefazolin. Remains on IV Lasix at 40 mg every 8 hours, and he is in -770 ML fluid balance over the last 24 hours. Has some residual mild upper and lower extremity edema, lung sounds reveal diminished breath sounds at the bases, no rhonchi, no wheezing. Today's chest x-ray shows mild cardiomegaly with central vessel congestion and small to moderate-sized right greater than left pleural effusions. Ultrasound the chest yesterday showed a right pleural effusion of 12.0 cm pocket. On 08/27/2019 patient seen in follow-up on general medical floor, apparently he appears to be more short of breath today, quite dyspneic, and his FiO2 is up 200% per 100% nonrebreather mask. Repeat chest x-ray shows moderate to large size right pleural effusion, and persistent diffuse left lung infiltrate. Mary Beth fitzpatrick remains on IV diuretics, 40 mg every 8 hours, he is in sinus mechanism. We proceeded with right-sided thoracentesis at the bedside by Dr. So would removal of 1.4 L of turbid dark colored pleural fluid which was sent for analysis. he tolerated procedure well, he remains quite weak. On 08/28/2019 patient seen in follow-up on general medical floor, he is awake and alert, in no acute distress, currently on 12 L of oxygen per high flow nasal cannula, denies any acute distress, lung sounds reveal crackles at bilateral lower bases, patient is status post thoracentesis on the right side on 08/27/2019 with removal of 1.4 L of dark colored pleural fluid which was sent for analysis and cytology. Analysis revealed exudative fluid with high LDH and total protein of 4.1 g. Pleural fluid cultures are pending, Gram stain has shown no organisms thus far. Patient remains on diuretics at 40 mg every 8 hours. And patient has produced 4 L in the urine output in the last 24 hours, and he is in -3.3 L. Today's labs have been reviewed, showing white blood cell count of 11.4, hemoglobin of 8.7, sodium of 131, potassium is 3.4, chloride is 88, CO2 is 33, BUN of 14, creatinine 0.69. Current antibiotic coverage is with IV Zosyn. On 08/29/2019 patient is seen in follow-up on general medical floor. He is awake and alert, he is resting in bed, still requiring 12 L of oxygen and the pu lse ox is only 90-91%, patient has been receiving physiotherapy, he is on breathing treatments, he remains on IV diuretics at 40 mg every 12 hours. His chest x-ray has been reviewed showing increasingly diffuse infiltrate throughout the left lung and moderate right pleural fluid likely loculated. Patient remains on Zosyn for antibiotic coverage. Patient is status post right-sided thoracentesis in cytology was negative for diagnostic features of neoplasm. Pleural fluid with exudative in nature, cultures are pending, Gram stain has shown no growth at the 48 hour yovanny. he remains weak and debilitated, he was able to sit up with extensive assistance yesterday in the chair, he is improving, however still has significant weakness Objective - Vital Signs Vital signs: Vital Signs Temp 98.3 F 08/30/19 07:00 Pulse 76 08/30/19 11:42 Resp 17 08/30/19 07:00 BP 162/79 08/30/19 07:00 Pulse Ox 91 L 08/30/19 07:00 Intake & Output 08/29/19 08/30/19 08/30/19 18:59 06:59 18:59 Intake Total 300 118 Output Total 825 2400 1200 Balance -525 2400 -1082 Weight 91 kg Intake: Intake, IV Titration 300 Amount Magnesium Sulfate-D5w Pmx 200 1 gm In Dextrose/Water 1 100ml.bag @ 100 mls/hr IVPB Q1H [facility] Rx#: [id number] Piperacillin-Tazobactam 3 100 .375 gm In Sodium Chloride 0.9% 100 ml @ 25 mls/hr IVPB Q8HR [facility] Rx# :[id number] Oral 118 Output: Urine 825 2400 1200 Other: Voiding Method Indwelling Catheter Indwelling Catheter # Voids 1 3 ABP, PAP, CO, CI - Last Documented Arterial Blood Pressure 151/56 - Exam GENERAL EXAM: Awake and alert, oriented to self and place 64-year-old white male, on 12 L per high flow nasal cannula 94%, extremely weak, patient is answering questions appropriately, on command HEAD: Normocephalic/atraumatic. EYES: Normal reaction of pupils, equal size. Conjunctiva pink, sclera white. NOSE: Clear with pink turbinates. THROAT: No erythema or exudates. NECK: No masses, no JVD, no thyroid enlargement, no adenopathy. CHEST: No chest wall deformity. Symmetrical expansion. LUNGS: Equal air entry with bibasilar crackles CVS: Regular rate and rhythm, normal S1 and S2, no gallops, no murmurs, no rubs ABDOMEN: Soft, nontender. No hepatosplenomegaly, normal bowel sounds, no guarding or rigidity. EXTREMITIES: No clubbing, no edema, no cyanosis, 2+ pulses and upper and lower extremities. MUSCULOSKELETAL: Muscle strength and tone normal. SPINE: No scoliosis or deformity SKIN: No rashes CENTRAL NERVOUS SYSTEM: Awake and alert, generally weak, 64-year-old white male, on 12 L of oxygen. No focal deficits, tone is normal in all 4 extremities. - Labs CBC & Chem 7: 08/30/19 11:04 08/30/19 11:04 Labs: Abnormal Lab Results - Last 24 Hours (Table) 08/30/19 08/30/19 Range/Units 11:04 11:04 RBC 3.02 L (4.30-5.90) m/uL Hgb 7.6 L (13.0-17.5) gm/dL Hct 25.0 L (39.0-53.0) % MCHC 30.5 L (31.0-37.0) g/dL Plt Count 473 H (150-450) k/uL Sodium 127 L (137-145) mmol/L Chloride 86 L (98-107) mmol/L Glucose 101 H (74-99) mg/dL Calcium 7.9 L (8.4-10.2) mg/dL Microbiology - Last 24 Hours (Table) 08/27/19 11:05 Blood Culture - Preliminary Blood No Growth after 48 hours 08/27/19 10:10 Gram Stain - Preliminary Pleural Fluid Body Fluid Culture - Preliminary Assessment and Plan Plan: Assessment: #1. Acute hypoxic and hypercapnic respiratory failure related to MSSA and E. coli pneumonia and sepsis, requiring intubation and mechanical ventilator support, successfully weaned and extubated on 08/16/2019. Patient had bronchoscopy with BAL on 08/16/2019 and so far the blood cultures are negative #2. Bilateral pleural effusions, status post right-sided thoracentesis today on 08/27/2019 would removal of 1.4 L of turbid dark colored pleural fluid which was sent for analysis, which showed exudative fluid, cytology is negative, cultures pending, Gram stain showed no organisms #3. MSSA bacteremia #4. Acute kidney injury, improving. Secondary to acute sepsis. #5. Acute sepsis, and acute lactic acidosis on presentation, improved #6. Chronic psychiatric disorder/bipolar disorder. #7. Dyslipidemia. #8. Benign essential hypertension. #9. Shock liver, improved . #10. Acute rhabdomyolysis, resolved #11. Pulmonary hypertension. #12. Staph aureus septicemia, MSSA. #13. Hyperchloremic hypernatremia secondary to diarrhea and intravascular volume depletion. Improved with D5W. #14. Acute hepatic/metabolic encephalopathy, improved #15. Severe generalized weakness #16. Hypernatremia likely related to free water deficit, improved Plan: Continue current medical treatment, continue the diuretics, today's chest x-ray still shows increase in the diffuse infiltrate throughout the left lung, and moderate sized right pleural fluid which is loculated but stable. We spoke with interventional radiology for possibility of right-sided thoracentesis, and we'll see if they can work him into their schedule. Continue chest physiotherapy, may use BiPAP at bedtime, encouraged patient to sit up, deep breathe and cough. I performed a history & physical examination of the patient and discussed their management with my nurse practitioner, Radha Silva. I reviewed the nurse practitioner's note and agree with the documented findings and plan of care. Lung sounds are positive for diminished breath sounds. The findings and the impression was discussed with the patient. I attest to the documentation by the nurse practitioner. Time with Patient: Less than 30
[2019-08-30] MEDS ORDERED: HYDROmorphone 0.5 MG/0.5 ML SYRINGE IVP STA (14:14)
--- NOTE | 2019-08-30 15:29 | XR ---
EXAMINATION TYPE: XR chest 1V portable DATE OF EXAM: 08/30/2019 COMPARISON: 08/30/2019 INDICATION: Postthoracentesis TECHNIQUE: Single frontal view of the chest is obtained. FINDINGS: The heart size is normal. The pulmonary vasculature is prominent. There is diffuse increased lung markings on the left. This appears similar to prior study. Right pleu ral effusion is present. No pneumothorax is evident post thoracentesis. IMPRESSION: 1. No pneumothorax postthoracentesis. 2. Infiltrate on the left and right pleural effusion.
--- NOTE | 2019-08-30 15:45 | US ---
Ultrasound-guided therapeutic thoracentesis DATE OF EXAM: 08/30/2019 CLINICAL HISTORY: Right pleural effusion The procedure was discussed with the patient. The risks, complications, benefits, and alternatives we re discussed and any questions were answered. Informed consent was obtained. The patient was placed supine on the ultrasound table and prepped and draped in the usual sterile fas hion. All elements of maximal barrier and sterile technique were utilized. Preliminary imaging demon strated a right-sided pleural effusion with some degree of loculation. Referring clinician notified. Under ultrasound guidance, access into the pleural space was obtained, via the thoracentesis catheter system and direct ultrasound guidance. Ap proximately 0.3 liters of serous fluid was removed. The patient was stable throughout the procedure and remained stable upon discharge from Department of Radiology. IMPRESSION: 1. Successful therapeutic thoracentesis under ultrasound guidance. Note is made that the pleural flui d collection appears to be loculated.
[2019-08-30] MEDS: ALPRAZolam 0.25 MG TAB PO PRN (21:07)
--- NOTE | 2019-08-30 22:58 | PN ---
PROGRESS NOTE DATE OF SERVICE: 08/30/2019 REASON FOR FOLLOWUP: Pneumonia. INTERVAL HISTORY: The patient is currently afebrile. He is breathing more comfortably. The patient denies having any chest pain or shortness of breath. Occasional cough. No abdominal pain or diarrhea. PHYSICAL EXAMINATION: Blood pressure 128/72 with a pulse of 80, temperature 97.9. He is 96% on high-flow oxygen. General description is a middle-aged male up in the bed in no distress. RESPIRATORY SYSTEM: Unlabored breathing with decreased breath sounds at the base. No wheeze. HEART: S1, S2. Regular rate and rhythm. ABDOMEN: Soft. No tenderness. LABS: Hemoglobin 7.8, white count 10, BUN of 18, creatinine 0.99. Bronch with blood culture has been negative. DIAGNOSTIC IMPRESSION AND PLAN: 1. Patient with initial methicillin-susceptible Staphylococcus aeruginosa pneumonia and bacteremia that has been adequately treated. 2. Patient now with a component of nosocomial pneumonia, for which the patient is covered with Zyvox and Zosyn; to continue. We will monitor his clinical course closely. Continue with supportive care. MMODL / IJN: [id number] /
[2019-08-31] MEDS: HYDROmorphone 1 MG/ML 1 ML SYRINGE IVP PRN ×3 (02:03→17:39)
[2019-08-31] MEDS: oxyCODONE-APAP 5-325MG 1 EACH TAB PO PRN ×4 (03:05→20:40)
[2019-08-31] MEDS: bisacodyL 5 MG TABLET.DR PO PRN (03:55)
[2019-08-31] MEDS: ALPRAZolam 0.25 MG TAB PO PRN ×2 (05:55→16:08)
[2019-08-31] MEDS: METOPROLOL TARTRATE 50 MG TAB PO SCH ×2 (07:28→16:03)
[2019-08-31] MEDS: PANTOPRAZOLE 40 MG TABLET PO SCH (07:28)
[2019-08-31] MEDS: AMIODARONE 200 MG TAB PO SCH ×2 (07:28→20:41)
[2019-08-31] MEDS: HEPARIN SODIUM,PORCINE 5,000 UNIT/ML 1 ML VIAL SQ SCH ×2 (07:28→16:03)
[2019-08-31] MEDS: FUROSEMIDE 10 MG/ML 4 ML VIAL IV SCH ×2 (07:28→20:40)
[2019-08-31] MEDS: SODIUM CHLORIDE 0.9% 500 ML 500 ML IV SCH (07:29)
[2019-08-31] MEDS: PIPERACILLIN-TAZOBACTAM 3.375 GM in SODIUM CHLORIDE 0.9% 100 ML IVPB SCH ×2 (07:29→16:03)
[2019-08-31] MEDS: IPRATROPIUM-ALBUTEROL 3 ML NEB INHALATION SCH ×4 (08:28→19:44)
[2019-08-31 09:42] LABS: Basophils % (A) 0 %; Eosinophils # (A) 0.4 k/uL (0-0.7); Eosinophils % (A) 5 %; HCT 23.6 % (39.0-53.0); HGB 7.7 gm/dL (13.0-17.5); Hypochromasia Moderate; Lymphocytes # (A) 0.8 k/uL (1.0-4.8); Lymphocytes % (A) 10 %; MCH 26.9 pg (25.0-35.0); MCHC 32.7 g/dL (31.0-37.0); MCV 82.3 fL (80.0-100.0); Mean Platelet Volume 6.4; Monocytes # (A) 0.6 k/uL (0-1.0); Monocytes % (A) 7 %; Neutrophils # (A) 6.4 k/uL (1.3-7.7); Neutrophils % (A) 77 %; Platelet Count 483 k/uL (150-450); RBC 2.87 m/uL (4.30-5.90); RDW 15.1 % (11.5-15.5); WBC 8.3 k/uL (3.8-10.6)
[2019-08-31 09:57] LABS: African American GFR (CKD) >90 (>60 ml/min/1.73 sqM); Anion Gap 10 mmol/L; Blood Urea Nitrogen 17 mg/dL (9-20); Calcium 8.2 mg/dL (8.4-10.2); Carbon Dioxide 33 mmol/L (22-30); Chloride 84 mmol/L (98-107); Glucose 101 mg/dL (74-99); Magnesium 1.6 mg/dL (1.6-2.3); Non-African American GFR(CKD) 79 (>60 ml/min/1.73 sqM); Sodium 127 mmol/L (137-145)
--- NOTE | 2019-08-31 11:14 | P.PN ---
Subjective This is a pleasant 64 years old male with multiple medical problems who presents initially with acute hypoxic failure, fever and altered mental status patient was sewn intubated and found to have pneumonia secondary to MSSA and E coli, also patient had acute kidney injury and MSSA bacteremia. Call the test was negative 2. Patient has prolonged course in the ICU, please review the records and previous notes Patient is status post extubation on 08/15. He is more alert and awake. And he is saturating and 90s on 60 to oxygen nasal cannula, breathing at a rate of 18/m. Rest of vitals looks stable. He is alert and awake at more stable. CBC and BMP looks stable, magnesium was low at 1.4, recheck magnesium He remains on cefazolin since 08/21 for persistent bacteremia and pneumonia with MSSA. Also he is on Lasix 40 mg 3 times a day and metoprolol 50 mg 3 times a day. 08/27/2019 Patient is seen and examined in the general medical floor, is awake and alert oriented, is slightly dyspneic, is saturating 89-94% on 15 L via nonrebreather. Yesterday he was saturating low 90s on 6 L of oxygen via nasal cannula. Hemodynamically stable. Labs from today are pending. Chest x-ray from this morning: Persistent moderate to large right pleural effusion and moderate left-sided pleural effusion with compressive atelectasis. Associated with some infiltrated and/or edema. Patient remains on cefazolin and Lasix 40 mg 3 times a day. Patient is followed closely by pulmonary team as well. We will follow up with pulmonary about further recommendation 08/28/2019 Patient status post right thoracocentesis about 1.4 L of fluid removed, he is still a little bit tachypneic , he is saturating 90s on 3 L oxygen via high flow nasal cannula. Is awake and alert, no chest pain or significant coughing. WBC trending down to 11.4 K, hemoglobin 8.7, platelets is normal. Sodium 131, potassium 3.4, creatinine is normal. Repeat chest x-ray this morning: Showing stable chest, pneumonia. Patient was found closely by pulmonary team as well He remains on cefazolin and Lasix IV 40 mg 3 times a day. 08/29/2019 Patient status post right thoracocentesis about 1.4 L of fluid removed, today is postprocedure day #2. His breathing is stable, however his distal tachypneic and on 12 L of oxygen with saturation of 91%. No other complaints. WBC is 11.4 yesterday and today pending. As well as other labs CT of the chest done yesterday showing suprahilar opacity 2.6 cm that needs follow-up, left pleural effusion small to moderate, decrease in the right pleural effusion with no loculated effusion. He has worsening bilateral groundglass opacity We will retest for covid, he had 2 negative samples before. Newton catheter in place with dark color urine. His antibiotics has been changed to Zyvox and Zosyn. This along with Lasix IV twice daily 08/30/2019 Patient status post right thoracocentesis about 1.4 L of fluid removed, today is postprocedure day #3. He still saturating 90s on 12 L oxygen since yesterday. Overnight he got some breathing difficulty was relieved with bronchodilator therapy, he has tenacious phlegm with occasional coughing. He is not in respiratory distress now. Abdomen is benign and he has Newton catheter with clear urine. Afebrile since 08/26 when he had had a degree Fahrenheit. WBCs back to normal yesterday 9.0K, sodium 128. Creatinine is normal, Low magnesium was replaced He remains on Lasix IV and his antibiotics has been changed to Zyvox and Zosyn He might need a repeat thoracocentesis and/or bronchoscopy 08/31/2019 Patient status post right thoracocentesis about 1.4 L of fluid removed, today is postprocedure day #4. Is doing better today, more easy breathing and his oxygen requirements dropped to 7 L/m. No other new complaints. Vitals are stable. CBC and WBC Remains on Zyvox and Zosyn as well as Lasix 40 mg twice daily Objective - Vital Signs Vital signs: Vital Signs Temp 98.0 F 08/31/19 07:00 Pulse 62 08/31/19 07:00 Resp 17 08/31/19 07:00 BP 168/83 08/31/19 07:00 Pulse Ox 97 08/31/19 07:00 Intake & Output 08/30/19 08/31/19 08/31/19 18:59 06:59 18:59 Intake Total 236 118 Output Total 1200 1800 Balance -964 -1800 118 Weight 91 kg 92.5 kg Intake: Oral 236 118 Output: Urine 1200 1800 Other: Voiding Method Indwelling Catheter Indwelling Catheter # Voids 3 # Bowel Movements 0 ABP, PAP, CO, CI - Last Documented Arterial Blood Pressure 151/56 - Exam -GENERAL: The patient is alert and oriented x3, not in any acute distress. Generally weak HEENT: Pupils are round and equally reacting to light. EOMI. No scleral icterus. No conjunctival pallor. Normocephalic, atraumatic. No pharyngeal erythema. No thyromegaly. CARDIOVASCULAR: S1 and S2 present. No murmurs, rubs, or gallops. -PULMONARY: Chest is clear to auscultation, no wheezing or crackles. Decreased breath sounds both basal inferior ABDOMEN: Soft, nontender, nondistended, normoactive bowel sounds. No palpable organomegaly. MUSCULOSKELETAL: No joint swelling or deformity. EXTREMITIES: No cyanosis, clubbing, or pedal edema. NEUROLOGICAL: Gross neurological examination did not reveal any focal deficits. SKIN: No rashes. no petechiae. - Labs CBC & Chem 7: 08/31/19 09:03 08/31/19 09:03 Labs: Abnormal Lab Results - Last 24 Hours (Table) 08/30/19 08/30/19 08/31/19 Range/Units 11:04 11:04 09:03 RBC 3.02 L (4.30-5.90) m/uL Hgb 7.6 L (13.0-17.5) gm/dL Hct 25.0 L (39.0-53.0) % MCHC 30.5 L (31.0-37.0) g/dL Plt Count 473 H (150-450) k/uL Lymphocytes # (1.0-4.8) k/uL Sodium 127 L 127 L (137-145) mmol/L Potassium 3.0 L (3.5-5.1) mmol/L Chloride 86 L 84 L (98-107) mmol/L Carbon Dioxide 33 H (22-30) mmol/L Glucose 101 H 101 H (74-99) mg/dL Calcium 7.9 L 8.2 L (8.4-10.2) mg/dL 08/31/19 Range/Units 09:03 RBC 2.87 L (4.30-5.90) m/uL Hgb 7.7 L (13.0-17.5) gm/dL Hct 23.6 L (39.0-53.0) % MCHC (31.0-37.0) g/dL Plt Count 483 H (150-450) k/uL Lymphocytes # 0.8 L (1.0-4.8) k/uL Sodium (137-145) mmol/L Potassium (3.5-5.1) mmol/L Chloride (98-107) mmol/L Carbon Dioxide (22-30) mmol/L Glucose (74-99) mg/dL Calcium (8.4-10.2) mg/dL Microbiology - Last 24 Hours (Table) 08/27/19 11:05 Blood Culture - Preliminary Blood No Growth after 72 hours 08/27/19 10:10 Gram Stain - Preliminary Pleural Fluid Body Fluid Culture - Preliminary Assessment and Plan Assessment: -Acute hypoxic and hypercapnic respiratory failure secondary to MSSA and E. coli pneumonia. patient is currently extubated. Patient is currently on cefazolin -Bilateral pleural effusion, right more than left, pulmonary and the case, possible need thoracocentesis. Patient is currently on Lasix -persistent bacteremia with MSSA. Patient patient was switched to cefazolin. repeat cultures have been negative. --Severe toxic encephalopathy from sepsis and septic shock. Improving. -Acute renal failure possibly acute tubular necrosis patient creatinine improved with IV fluids -Lactic acidosis secondary to sepsis, improved -Hypertension -Hyperlipidemia next and heparin hypertension -Elevated liver enzymes probably secondary to shock liver. -Hepatic encephalopathy: Ammonia level is bit better now. -Troponin leak secondary to myocardial injury from sepsis. -Severe pulmonary hypertension -Generalized weakness and fatigue
[2019-08-31] MEDS: LINEZOLID 600 MG in DEXTROSE/WATER 1 300ML.BAG IVPB SCH (11:37)
--- NOTE | 2019-08-31 12:41 | P.PN ---
Subjective Progress Note Date: 08/31/19 Principal diagnosis: Acute hypoxic/hypercapnic respiratory failure secondary to MSSA and E. coli pneumonia and sepsis The patient is seen today 08/31/2019 in follow-up on the regular medical floor. He is currently sitting up in bed. Awake and alert in no acute distress. Curre ntly maintaining O2 saturations in the 90s on 10 L high flow nasal cannula. Remains afebrile. Hemodynamically stable. Pleural fluid culture reveals no growth. Follow-up blood cultures reveal no growth to date. White count 8.3. Hemoglobin 7.7. Platelet count 43. Sodium 127. Potassium 3.0. Bicarb 33. Creatinine 1.02. He remains on linezolid and Zosyn. Continued on IV diuretics. He did undergo a thoracentesis of the right chest yesterday by interventional radiology were 300 mL of serous fluid was removed. Follow-up chest x-ray revealed no pneumothorax. There continued infiltrate of the left and a right pleural effusion. The patient needs increased encouragement regarding using incentive spirometer. Chest physiotherapy has been ordered. Continued on bronchodilators. Objective - Vital Signs Vital signs: Vital Signs Temp 98.0 F 08/31/19 07:00 Pulse 56 L 08/31/19 11:58 Resp 17 08/31/19 07:00 BP 168/83 08/31/19 07:00 Pulse Ox 97 08/31/19 07:00 Intake & Output 08/30/19 08/31/19 08/31/19 18:59 06:59 18:59 Intake Total 236 1518 Output Total 1200 1800 900 Balance -964 -1800 618 Weight 91 kg 92.5 kg Intake: Intake, IV Titration 1400 Amount Linezolid 600 mg In 1300 Dextrose/Water 1 300ml. bag @ 150 mls/hr IVPB Q12H [facility] Rx#:[id number] Piperacillin-Tazobactam 3 100 .375 gm In Sodium Chloride 0.9% 100 ml @ 25 mls/hr IVPB Q8HR [facility] Rx# :[id number] Oral 236 118 Output: Urine 1200 1800 900 Other: Voiding Method Indwelling Catheter Indwelling Catheter # Voids 3 # Bowel Movements 0 ABP, PAP, CO, CI - Last Documented Arterial Blood Pressure 151/56 - Exam GENERAL EXAM: Awake and alert, pleasant 64-year-old male patient, on 10 L of oxygen and the pulse ox of 97%, extremely weak HEAD: Normocephalic/atraumatic. EYES: Normal reaction of pupils, equal size. Conjunctiva pink, sclera white. NOSE: Clear with pink turbinates. THROAT: No erythema or exudates. NECK: No masses, no JVD, no thyroid enlargement, no adenopathy. CHEST: No chest wall deformity. Symmetrical expansion. LUNGS: Equal air entry with crackles in the bilateral posterior bases right greater than left, diminished CVS: Regular rate and rhythm, normal S1 and S2, no gallops, no murmurs, no rubs ABDOMEN: Soft, nontender. No hepatosplenomegaly, normal bowel sounds, no guarding or rigidity. EXTREMITIES: No clubbing, 1-2+ edema, no cyanosis, 2+ pulses and upper and lower extremities. MUSCULOSKELETAL: Muscle strength and tone normal. SPINE: No scoliosis or deformity SKIN: No rashes CENTRAL NERVOUS SYSTEM: Awake and alert, generally weak, no focal deficits, tone is normal in all 4 extremities. - Labs CBC & Chem 7: 08/31/19 09:03 08/31/19 09:03 Labs: Abnormal Lab Results - Last 24 Hours (Table) 08/31/19 08/31/19 Range/Units 09:03 09:03 RBC 2.87 L (4.30-5.90) m/uL Hgb 7.7 L (13.0-17.5) gm/dL Hct 23.6 L (39.0-53.0) % Plt Count 483 H (150-450) k/uL Lymphocytes # 0.8 L (1.0-4.8) k/uL Sodium 127 L (137-145) mmol/L Potassium 3.0 L (3.5-5.1) mmol/L Chloride 84 L (98-107) mmol/L Carbon Dioxide 33 H (22-30) mmol/L Glucose 101 H (74-99) mg/dL Calcium 8.2 L (8.4-10.2) mg/dL Microbiology - Last 24 Hours (Table) 08/27/19 11:05 Blood Culture - Preliminary Blood No Growth after 72 hours 08/27/19 10:10 Gram Stain - Preliminary Pleural Fluid Body Fluid Culture - Preliminary Assessment and Plan Assessment: #1. Acute hypoxic/hypercapnic respiratory failure related to MSSA and E. coli pneumonia and sepsis, requiring intubation and mechanical ventilator support, successfully weaned and extubated on 08/16/2019. Patient had bronchoscopy with BAL on 08/16/2019 and so far the cultures are negative. Cytology pending. Computed tomography scan of the chest reveals interval decrease in size of the right pleural effusion though with residual moderate to large effusion. There is continued combination of collapse and consolidation of the entire right lower lobe and partial collapse of the right middle lobe. Similar small to moderate left pleural effusion. Diffuse patchy and confluent groundglass reticular densities throughout the remaining lungs. Focal 2.6 cm opacity at the right suprahilar level and soft tissue windows. Cannot exclude a mass. 08/31/2019: The patient did undergo a thoracentesis on the right yesterday by interventional radiology with 300 ML's of fluid removed. Cultures pending. #2. Suspect aspiration pneumonia. #3. MSSA bacteremia #4. Acute kidney injury, improving. Secondary to acute sepsis. #5. Acute sepsis, and acute lactic acidosis on presentation, improved #6. Chronic psychiatric disorder/bipolar disorder. #7. Dyslipidemia. #8. Benign essential hypertension. #9. Shock liver, improved . #10. Acute rhabdomyolysis, resolved #11. Pulmonary hypertension. #12. Staph aureus septicemia, MSSA. #13. Hyperchloremic hypernatremia secondary to diarrhea and intravascular vol ume depletion. Improved with D5W. #14. Acute hepatic/metabolic encephalopathy, improved #15. Severe generalized weakness, critical illness polyneuropathy #16. Hypernatremia likely related to free water deficit, improved Plan: The patient was seen and evaluated by Dr. So Chest x-ray and labs reviewed Right-sided thoracentesis performed with 300 MLS removed yesterday per IR Continue to encourage the increased use the incentive spirometer Chest physiotherapy Titrate down the FiO2 as tolerated Increase his activity as tolerated We will continue to follow and make further recommendations based on his clinical status I, the cosigning physician, performed a history & physical examination of the patient. Lungs sounds with bilateral crackles in the posterior bases right greater than left. Maintaining good O2 saturations in the 90s on 10L per minute per nasal canula. I discussed the assessment and plan of care with my nurse practitioner, Rochelle Galvan. I attest to the above note as dictated by her.
--- NOTE | 2019-08-31 15:51 | PN ---
PROGRESS NOTE DATE OF SERVICE: 08/31/2019 REASON FOR FOLLOWUP: Pneumonia. INTERVAL HISTORY: The patient is currently afebrile. The patient is breathing more comfortably, still requiring high-flow oxygen though ( ) 8 L. No chest pain. He did have some cough with sputum production, but no hemoptysis. No nausea, no vomiting. No abdominal pain, no diarrhea. PHYSICAL EXAMINATION: Blood pressure 152/83 with a pulse of 62, temperature 98. He is 97% on 8 L high-flow oxygen. General description is a middle-aged male up in the chair in no distress. Respiratory system: Unlabored breathing, decreased breath sounds at the bases. No wheeze. Heart S1, S2. Regular rate and rhythm. Abdomen soft, no tenderness. LABS: Hemoglobin 7.2, white count 8.2, BUN of 17, creatinine 1.02. DIAGNOSTIC IMPRESSION AND PLAN: Patient with pneumonia, possible nosocomial. Currently on Zosyn and Zyvox. The patient is status post thoracocentesis. Culture has been negative so far. Repeat chest x-ray tomorrow. Continue with current antibiotic. Sister at the bedside, questions were answered. MMODL / IJN: [id number] /
[2019-09-01] MEDS: METOPROLOL TARTRATE 50 MG TAB PO SCH ×4 (00:26→20:33)
[2019-09-01] MEDS: ALPRAZolam 0.25 MG TAB PO PRN ×2 (00:26→20:33)
[2019-09-01] MEDS: LINEZOLID 600 MG in DEXTROSE/WATER 1 300ML.BAG IVPB SCH ×4 (00:27→23:31)
[2019-09-01] MEDS: HEPARIN SODIUM,PORCINE 5,000 UNIT/ML 1 ML VIAL SQ SCH ×4 (00:32→23:30)
[2019-09-01] MEDS: PIPERACILLIN-TAZOBACTAM 3.375 GM in SODIUM CHLORIDE 0.9% 100 ML IVPB SCH ×3 (01:00→16:37)
[2019-09-01] MEDS: HYDROmorphone 1 MG/ML 1 ML SYRINGE IVP PRN ×3 (02:07→17:22)
[2019-09-01] MEDS: oxyCODONE-APAP 5-325MG 1 EACH TAB PO PRN ×3 (05:45→20:40)
[2019-09-01] MEDS: AMIODARONE 200 MG TAB PO SCH ×2 (07:09→20:33)
[2019-09-01] MEDS: PANTOPRAZOLE 40 MG TABLET PO SCH (07:09)
[2019-09-01] MEDS: FUROSEMIDE 10 MG/ML 4 ML VIAL IV SCH ×2 (07:09→20:33)
[2019-09-01] MEDS: SODIUM CHLORIDE 0.9% 500 ML 500 ML IV SCH (07:10)
[2019-09-01] MEDS: bisacodyL 5 MG TABLET.DR PO PRN (07:15)
[2019-09-01] MEDS: IPRATROPIUM-ALBUTEROL 3 ML NEB INHALATION SCH ×4 (07:52→20:46)
[2019-09-01 09:07] LABS: Calcium 7.7 mg/dL (8.4-10.2)
[2019-09-01] MEDS ORDERED: Potassium Replacement Protocol 1 EACH MISC MISCELLANE PRN (09:10)
[2019-09-01 09:26] LABS: Basophils % (A) 0 %; Eosinophils # (A) 0.4 k/uL (0-0.7); Eosinophils % (A) 5 %; HCT 23.1 % (39.0-53.0); HGB 7.4 gm/dL (13.0-17.5); Hypochromasia Moderate; Lymphocytes # (A) 0.8 k/uL (1.0-4.8); Lymphocytes % (A) 9 %; MCH 26.4 pg (25.0-35.0); MCHC 32.1 g/dL (31.0-37.0); MCV 82.3 fL (80.0-100.0); Mean Platelet Volume 6.4; Monocytes # (A) 0.6 k/uL (0-1.0); Monocytes % (A) 7 %; Neutrophils # (A) 6.9 k/uL (1.3-7.7); Neutrophils % (A) 78 %; Platelet Count 488 k/uL (150-450); RBC 2.81 m/uL (4.30-5.90); RDW 15.1 % (11.5-15.5); WBC 8.8 k/uL (3.8-10.6)
[2019-09-01] MEDS: POTASSIUM CHLORIDE ER 20 MEQ TAB.ER PO SCH ×2 (09:40→11:23)
[2019-09-01] MEDS: MAGNESIUM HYDROXIDE 2,400 MG/10 ML CUP PO PRN (09:40)
--- NOTE | 2019-09-01 10:05 | XR ---
EXAMINATION TYPE: XR chest 1V DATE OF EXAM: 09/01/2019 HISTORY: pneumonia FU. REFERENCE: Previous study dated 08/30/2019. FINDINGS: There is a left shoulder arthroplasty in place.. There are bibasilar infiltrates. There are bilateral effusions, greater on the right than the left. T here is vascular congestion and interstitial change. IMPRESSION: 1. FINDINGS CONSISTENT WITH MILD HEART FAILURE. 2. BIBASILAR AIRSPACE DISEASE, WORSE ON THE RIGHT THAN THE LEFT. 3. BILATERAL EFFUSIONS, GREATER ON THE RIGHT THAN THE LEFT.
--- NOTE | 2019-09-01 11:47 | P.PN ---
Subjective This is a pleasant 64 years old male with multiple medical problems who presents initially with acute hypoxic failure, fever and altered mental status patient was sewn intubated and found to have pneumonia secondary to MSSA and E coli, also patient had acute kidney injury and MSSA bacteremia. Call the test was negative 2. Patient has prolonged course in the ICU, please review the records and previous notes Patient is status post extubation on 08/15. He is more alert and awake. And he is saturating and 90s on 60 to oxygen nasal cannula, breathing at a rate of 18/m. Rest of vitals looks stable. He is alert and awake at more stable. CBC and BMP looks stable, magnesium was low at 1.4, recheck magnesium He remains on cefazolin since 08/21 for persistent bacteremia and pneumonia with MSSA. Also he is on Lasix 40 mg 3 times a day and metoprolol 50 mg 3 times a day. 08/27/2019 Patient is seen and examined in the general medical floor, is awake and alert oriented, is slightly dyspneic, is saturating 89-94% on 15 L via nonrebreather. Yesterday he was saturating low 90s on 6 L of oxygen via nasal cannula. Hemodynamically stable. Labs from today are pending. Chest x-ray from this morning: Persistent moderate to large right pleural effusion and moderate left-sided pleural effusion with compressive atelectasis. Associated with some infiltrated and/or edema. Patient remains on cefazolin and Lasix 40 mg 3 times a day. Patient is followed closely by pulmonary team as well. We will follow up with pulmonary about further recommendation 08/28/2019 Patient status post right thoracocentesis about 1.4 L of fluid removed, he is still a little bit tachypneic , he is saturating 90s on 3 L oxygen via high flow nasal cannula. Is awake and alert, no chest pain or significant coughing. WBC trending down to 11.4 K, hemoglobin 8.7, platelets is normal. Sodium 131, potassium 3.4, creatinine is normal. Repeat chest x-ray this morning: Showing stable chest, pneumonia. Patient was found closely by pulmonary team as well He remains on cefazolin and Lasix IV 40 mg 3 times a day. 08/29/2019 Patient status post right thoracocentesis about 1.4 L of fluid removed, today is postprocedure day #2. His breathing is stable, however his distal tachypneic and on 12 L of oxygen with saturation of 91%. No other complaints. WBC is 11.4 yesterday and today pending. As well as other labs CT of the chest done yesterday showing suprahilar opacity 2.6 cm that needs follow-up, left pleural effusion small to moderate, decrease in the right pleural effusion with no loculated effusion. He has worsening bilateral groundglass opacity We will retest for covid, he had 2 negative samples before. Newton catheter in place with dark color urine. His antibiotics has been changed to Zyvox and Zosyn. This along with Lasix IV twice daily 08/30/2019 Patient status post right thoracocentesis about 1.4 L of fluid removed, today is postprocedure day #3. He still saturating 90s on 12 L oxygen since yesterday. Overnight he got some breathing difficulty was relieved with bronchodilator therapy, he has tenacious phlegm with occasional coughing. He is not in respiratory distress now. Abdomen is benign and he has Newton catheter with clear urine. Afebrile since 08/26 when he had had a degree Fahrenheit. WBCs back to normal yesterday 9.0K, sodium 128. Creatinine is normal, Low magnesium was replaced He remains on Lasix IV and his antibiotics has been changed to Zyvox and Zosyn He might need a repeat thoracocentesis and/or bronchoscopy 08/31/2019 Patient status post right thoracocentesis about 1.4 L of fluid removed, today is postprocedure day #4. Is doing better today, more easy breathing and his oxygen requirements dropped to 7 L/m. No other new complaints. Vitals are stable. CBC and WBC Remains on Zyvox and Zosyn as well as Lasix 40 mg twice daily 09/01/2019 Patient showing some improvement, he needed in this oxygen requirements today as 5 L/m via nasal cannula. No chest pain.. No abdominal complaint Still has Newton catheter. Vitals looks stable, CBC is unremarkable, sodium 128 and low potassium was replaced. He's on Zyvox and Zosyn and Lasix IV Objective - Vital Signs Vital signs: Vital Signs Temp 98.1 F 09/01/19 07:13 Pulse 68 09/01/19 08:03 Resp 18 09/01/19 07:13 BP 159/78 09/01/19 07:13 Pulse Ox 95 09/01/19 07:13 Intake & Output 08/31/19 09/01/19 09/01/19 18:59 06:59 18:59 Intake Total 1518 118 Output Total 1600 900 Balance -82 -900 118 Intake: Intake, IV Titration 1400 Amount Linezolid 600 mg In 1300 Dextrose/Water 1 300ml. bag @ 150 mls/hr IVPB Q12H [facility] Rx#:[id number] Piperacillin-Tazobactam 3 100 .375 gm In Sodium Chloride 0.9% 100 ml @ 25 mls/hr IVPB Q8HR [facility] Rx# :[id number] Oral 118 118 Output: Urine 1600 900 Other: Voiding Method Indwelling Catheter Indwelling Catheter ABP, PAP, CO, CI - Last Documented Arterial Blood Pressure 151/56 - Exam -GENERAL: The patient is alert and oriented x3, not in any acute distress. Generally weak HEENT: Pupils are round and equally reacting to light. EOMI. No scleral icterus. No conjunctival pallor. Normocephalic, atraumatic. No pharyngeal erythema. No thyromegaly. CARDIOVASCULAR: S1 and S2 present. No murmurs, rubs, or gallops. -PULMONARY: Chest is clear to auscultation, no wheezing or crackles. Decreased breath sounds both basal inferior ABDOMEN: Soft, nontender, nondistended, normoactive bowel sounds. No palpable organomegaly. MUSCULOSKELETAL: No joint swelling or deformity. EXTREMITIES: No cyanosis, clubbing, or pedal edema. NEUROLOGICAL: Gross neurological examination did not reveal any focal deficits. SKIN: No rashes. no petechiae. - Labs CBC & Chem 7: 09/01/19 07:05 09/01/19 07:05 Labs: Abnormal Lab Results - Last 24 Hours (Table) 09/01/19 09/01/19 Range/Units 07:05 07:05 RBC 2.81 L (4.30-5.90) m/uL Hgb 7.4 L (13.0-17.5) gm/dL Hct 23.1 L (39.0-53.0) % Plt Count 488 H (150-450) k/uL Lymphocytes # 0.8 L (1.0-4.8) k/uL Sodium 128 L (137-145) mmol/L Potassium 3.0 L (3.5-5.1) mmol/L Chloride 85 L (98-107) mmol/L Carbon Dioxide 33 H (22-30) mmol/L Calcium 7.7 L (8.4-10.2) mg/dL Microbiology - Last 24 Hours (Table) 08/27/19 11:05 Blood Culture - Preliminary Blood No Growth after 96 hours 08/27/19 10:10 Gram Stain - Final Pleural Fluid Body Fluid Culture - Final Assessment and Plan Assessment: -Acute hypoxic and hypercapnic respiratory failure secondary to MSSA and E. coli pneumonia. patient is currently extubated. Patient is currently on cefazolin -Bilateral pleural effusion, right more than left, pulmonary and the case, possible need thoracocentesis. Patient is currently on Lasix -persistent bacteremia with MSSA. Patient patient was switched to cefazolin. repeat cultures have been negative. --Severe toxic encephalopathy from sepsis and septic shock. Improving. -Acute renal failure possibly acute tubular necrosis patient creatinine improved with IV fluids -Lactic acidosis secondary to sepsis, improved -Hypertension -Hyperlipidemia next and heparin hypertension -Elevated liver enzymes probably secondary to shock liver. -Hepatic encephalopathy: Ammonia level is bit better now. -Troponin leak secondary to myocardial injury from sepsis. -Severe pulmonary hypertension -Generalized weakness and fatigue
--- NOTE | 2019-09-01 11:47 | P.PN ---
Subjective Progress Note Date: 09/01/19 On today's evaluation of 09/01/2019, the patient is resting comfortably in bed. I was able to wean him down to 5 L of oxygen by nasal cannula. Note that I performed a thoracentesis on this patient. Days back and subsequently interventional radiology did another thoracentesis as there was some loculated pocket of pleural effusion in the right lung. The fluid was evacuated. The fluid is an exudate. Cultures are negative for now. Meanwhile, he is using the Percocet. He is using incentive spirometer. He is sitting up on a chair. We were able to wean him down to 5 L. He remains on broad-spectrum antibiotics. He is aggressive chest physical therapy and physiotherapy. His overall weak. He remains on a combination of Zyvox and Zosyn. He is also receiving IV diuretics and the patient remains to be a negative fluid balance. Sodium level is stable at 128. His hemoglobin stable at 7.4. No other significant events otherwise for now. Is tolerating his diet. No altered mentation. Overall weak. Objective - Vital Signs Vital signs: Vital Signs Temp 98.1 F 09/01/19 07:13 Pulse 68 09/01/19 08:03 Resp 18 09/01/19 07:13 BP 159/78 09/01/19 07:13 Pulse Ox 95 09/01/19 07:13 Intake & Output 08/31/19 09/01/19 09/01/19 18:59 06:59 18:59 Intake Total 1518 118 Output Total 1600 900 Balance -82 -900 118 Intake: Intake, IV Titration 1400 Amount Linezolid 600 mg In 1300 Dextrose/Water 1 300ml. bag @ 150 mls/hr IVPB Q12H [facility] Rx#:[id number] Piperacillin-Tazobactam 3 100 .375 gm In Sodium Chloride 0.9% 100 ml @ 25 mls/hr IVPB Q8HR [facility] Rx# :[id number] Oral 118 118 Output: Urine 1600 900 Other: Voiding Method Indwelling Catheter Indwelling Catheter ABP, PAP, CO, CI - Last Documented Arterial Blood Pressure 151/56 - Exam Gen. appearance, the patient remains off sedation, nonacute distress intubated on a mechanical ventilator. Orogastric and orotracheal tube are both in place Head exam was generally normal. There was no scleral icterus or corneal arcus. Mucous membranes were moist. Neck was supple and without jugular venous distension, thyromegaly, or carotid bruits. Carotids were easily palpable bilaterally. There was no adenopathy. Lungs were clear to auscultation and percussion, and with normal diaphragmatic excursion. No wheezes or rales were noted. Cardiac exam revealed the PMI to be normally situated and sized. The rhythm was regular and no extrasystoles were noted during several minutes of auscultation. The first and second heart sounds were normal and physiologic splitting of the second heart sound was noted. There were no murmurs, rubs, clicks, or gallops. Abdominal exam revealed normal bowel sounds. The abdomen was soft, non-tender, and without masses, organomegaly, or appreciable enlargement of the abdominal aorta. Examination of the extremities revealed easily palpable radial, femoral and pedal pulses. There was no cyanosis, clubbing or edema. Examination of the skin revealed no evidence of significant rashes, suspicious appearing nevi or other concerning lesions. Neurologically the patient is unresponsive. Not following any commands. Not withdrawing to any painful stimulation. Pupils are 3 mm in size and they're sluggish and reactive to light. No nystagmus. No clonus. DTRs are +1 and symmetric in all 4 extremities. The patient is not withdrawing to any painful stimulation. Does not follow any verbal stimulation. The cough reflex is weak. The gag reflex is also weak. The patient has been off sedation for now.. On today's evaluation, I noted some minimal amount of grimacing upon deep painful stimulation. - Labs CBC & Chem 7: 09/01/19 07:05 09/01/19 07:05 Labs: Abnormal Lab Results - Last 24 Hours (Table) 09/01/19 09/01/19 Range/Units 07:05 07:05 RBC 2.81 L (4.30-5.90) m/uL Hgb 7.4 L (13.0-17.5) gm/dL Hct 23.1 L (39.0-53.0) % Plt Count 488 H (150-450) k/uL Lymphocytes # 0.8 L (1.0-4.8) k/uL Sodium 128 L (137-145) mmol/L Potassium 3.0 L (3.5-5.1) mmol/L Chloride 85 L (98-107) mmol/L Carbon Dioxide 33 H (22-30) mmol/L Calcium 7.7 L (8.4-10.2) mg/dL Microbiology - Last 24 Hours (Table) 08/27/19 11:05 Blood Culture - Preliminary Blood No Growth after 96 hours 08/27/19 10:10 Gram Stain - Final Pleural Fluid Body Fluid Culture - Final Assessment and Plan Plan: #1. Acute hypoxic/hypercapnic respiratory failure related to MSSA and E. coli pneumonia and sepsis, requiring intubation and mechanical ventilator support, successfully weaned and extubated on 08/16/2019. I think the patient's CAT scan findings are residual from previous extensive pneumonia as the patient developed some located right-sided pleural effusion requiring thoracentesis 2 and the flu id was an exudate. He remains to be hypoxic although there has been limited improvement in his oxygenation and the patient is currently down to 5 L about 2 by nasal cannula. He is also on accommodation of Zosyn and Zyvox. #2. Extensive right lung pneumonia with parapneumonic effusion #3. MSSA bacteremia #4. Acute kidney injury, improving. Secondary to acute sepsis. #5. Acute sepsis, and acute lactic acidosis on presentation, improved #6. Chronic psychiatric disorder/bipolar disorder. #7. Dyslipidemia. #8. Benign essential hypertension. #9. Shock liver, improved . #10. Acute rhabdomyolysis, resolved #11. Pulmonary hypertension. #12. Staph aureus septicemia, MSSA. #13. Hyperchloremic hypernatremia secondary to diarrhea and intravascular volume depletion. Improved with D5W. #14. Acute hepatic/metabolic encephalopathy, improved #15. Severe generalized weakness, critical illness polyneuropathy #16. Hypernatremia likely related to free water deficit, improved Plan Aggressive pulmonary toileting Chest PT Utilize the chest percussive Continue Zosyn and Zyvox Wean down the FiO2 as tolerated to maintain a saturation above 90% currently down to 5 L Continue IV Lasix Monitor electrolytes Repeat chest x-ray in the morning
[2019-09-02] MEDS: HYDROmorphone 1 MG/ML 1 ML SYRINGE IVP PRN ×3 (01:20→17:47)
[2019-09-02] MEDS: PIPERACILLIN-TAZOBACTAM 3.375 GM in SODIUM CHLORIDE 0.9% 100 ML IVPB SCH ×3 (02:23→16:18)
[2019-09-02] MEDS: oxyCODONE-APAP 5-325MG 1 EACH TAB PO PRN ×3 (02:27→22:25)
[2019-09-02] MEDS: ALPRAZolam 0.25 MG TAB PO PRN ×3 (05:31→22:25)
[2019-09-02] MEDS: MAGNESIUM HYDROXIDE 2,400 MG/10 ML CUP PO PRN (05:31)
--- NOTE | 2019-09-02 06:11 | PN ---
PROGRESS NOTE DATE OF SERVICE: 09/01/2019 REASON FOR FOLLOWUP: Nosocomial pneumonia. INTERVAL HISTORY: The patient is currently afebrile. The patient is breathing more comfortably. The patient denies having any chest pain. Occasional cough. No nausea, vomiting. No abdominal pain, no diarrhea. constipation. PHYSICAL EXAMINATION: Blood pressure 167/79 with a pulse of 68, temperature 98.7. He is 97% on 5 L nasal cannula. General description is a middle-aged male lying in bed in no distress. RESPIRATORY SYSTEM: Unlabored breathing, decreased breath sounds in the bases. No wheeze. HEART: S1, S2. Regular rate and rhythm. ABDOMEN: Soft, no tenderness. LABS: Hemoglobin 7.4, white count 8.8, creatinine 1.05. DIAGNOSTIC IMPRESSION AND PLAN: Patient with pneumonia with concern for possible nosocomial with recent worsening while inpatient. Patient's x-ray currently showed bibasilar airspace disease, worse on the right and currently covered with Zosyn and Zyvox. We were unable to obtain a sputum. The patient to continue current antibiotic for about a week to finish the course of therapy and continue supportive care. MMODL / IJN: [id number] /
[2019-09-02] MEDS: AMIODARONE 200 MG TAB PO SCH ×2 (07:50→22:26)
[2019-09-02] MEDS: PANTOPRAZOLE 40 MG TABLET PO SCH (07:50)
[2019-09-02] MEDS: METOPROLOL TARTRATE 50 MG TAB PO SCH ×3 (07:51→22:26)
[2019-09-02] MEDS: HEPARIN SODIUM,PORCINE 5,000 UNIT/ML 1 ML VIAL SQ SCH ×2 (07:51→16:18)
[2019-09-02] MEDS: FUROSEMIDE 10 MG/ML 4 ML VIAL IV SCH ×2 (07:51→22:27)
[2019-09-02] MEDS: IPRATROPIUM-ALBUTEROL 3 ML NEB INHALATION SCH ×4 (09:18→20:42)
[2019-09-02 10:03] LABS: African American GFR (CKD) >90 (>60 ml/min/1.73 sqM); Anion Gap 7 mmol/L; Blood Urea Nitrogen 19 mg/dL (9-20); Calcium 8.3 mg/dL (8.4-10.2); Carbon Dioxide 36 mmol/L (22-30); Chloride 87 mmol/L (98-107); Glucose 100 mg/dL (74-99); Magnesium 1.5 mg/dL (1.6-2.3); Non-African American GFR(CKD) 81 (>60 ml/min/1.73 sqM); Potassium 3.5 mmol/L (3.5-5.1); Sodium 130 mmol/L (137-145)
[2019-09-02] MEDS: LINEZOLID 600 MG in DEXTROSE/WATER 1 300ML.BAG IVPB SCH (11:52)
--- NOTE | 2019-09-02 13:56 | P.PN ---
Subjective Progress Note Date: 09/02/19 Principal diagnosis: Acute hypoxic and hypercapnic respiratory failure second to aspiration pneumonia 62-year-old male patient who was brought into the emergency department today unresponsive and profoundly hypoxic. The patient was in acute hypoxic respiratory failure. Initial pulse ox was in the mid 30s. Apparently he was not also communicating or responding. He was apparently awake and alert on the morning prior to him coming to the hospital according to the landlord. The landlord noted that the patient was appearing ill and called EMS. Upon EMS arrival, the patient was found to be obtunded. He had a fever of 10 1F. He was found to be hypoxic, brought into the emergency room he was found to be tachycardic and hypoxic with was placed on supplemental oxygen without any benefit and ultimately the patient was intubated and placed on a mechanical ventilator. COVID 19 is suspected. The patient was placed on the opposite isolation. The patient had the appropriate nasal swabs. Chest x-ray showed bilateral airspace disease consistent with pneumonia in addition to interstitial pneumonitis. ET tube was around 3.7 cm above the mario. NG tube was extending into the left abdomen. There was a right upper lobe consolidation noted and a tiny right-sided pleural effusion. No evidence of any pneumothorax. There was bilateral infiltrates and coarse interstitium and a prosthetic left shoulder. The patient has a white cell count of 4.9. He had some lymphopenia. His platelet counts is no within normal limits. The blood gases was done on 100% nonrebreather showed a pH of 7.17 with a pCO2 of 66 and pO2 of 45. The patient also had an acute kidney injury with a creatinine of 1.65. Epigastric level was at 3.1. The ALT is at 1106 with an ammonia level of 146 and a bilirubin of 0.5 and an albumin of 4.1. The serum alcohol was negative and the patient has negative salicylates and acetaminophen. Influenza screen has been negative. Covid 19 analysis still pending for now. This patient lives with a sister in a house and he collects Social Security disability. He has had issues with mental health and the patient has been dealing with bipolar disorder and chronic insomnia of many years duration. He has also chronic anxiety disorder. No history of any previous suicidal ideation or intent. No delusions or hallucinations based on recent psychiatric evaluation that was in the hospital. On today's evaluation of 62,020 the patient is being seen in follow-up in the intensive care unit. Noted the patient is intubated on a mechanical ventilator and is suspected to have Covid 19. He is afebrile on today's evaluation. He remains on a mechanical ventilator. He is sedated with propofol running at 20 mg per KG per minute. He was given a total of 5 L of IV fluid as the patient was hypotensive and currently the fluid is running at 75 mL an hour of normal saline. He remains on norepinephrine infusion at 0.08 mg per KG per minute. He remains on a mechanical ventilator. His assist-control mode at the rate of 28 with a tidal volume of 450 and FiO2 of 60% with a PEEP of 15. His blood gases showed a pH of 7.12 with a pCO2 of 58 and pO2 of 187. This was done and FiO2 of 100%. Otherwise, the patient has blood abnormalities it is consistent with Covid 19 infection. He has a rhabdomyolysis with a CPK level of 6114. He has also transaminitis with a AST of 3354, ALT of 1962, and his LDH level is at 8367. His creatinine is at 1.2, which is up from a baseline of 1.65 with fluid resuscitation. His current minute ventilation is 13 L. I made recommendations to keep the same vent setting. Based on the blood on of some non-anion gap metabolic acidosis, and with recommendations to start the patient on bicarb infusion and addition to 2 A of IV bicarb pushes. He was having temperatures throughout the night with temperature maximum 100.8. Current temperature is 99.6. He'll be started on enteral feeding for nutritional support. Covid 19 evaluation is still pending for now. On today's evaluation of 08/07/2019 and seeing this patient for a follow-up. The patient has sedated with propofol. He was given a sedation holiday yesterday and his neurologic exam was suboptimal as the patient did not show adequate neurologic recovery. Based on that, a CAT scan of the brain was done and the CAT scan of the brain was negative for any acute abnormalities. Noted the patient was profoundly hypoxic and at time of admission to the hospital and there is a suspicion for hypoxic encephalopathy. Contrary to my expectations, the patient checked negative for Covid 19 infection. The blood culture came back positive for staph aureus. Currently is on a combination of cefepime and vancomycin. The patient was resuscitated with more than 5 L of normal saline and the patient is also requiring some pressors for hemodynamic support and levo fed was started and 8 on was placed on hold as of 5:00 this morning. Urine output in the order of 40 mL an hour. In terms of sedation, the patient is on propofol at 20 g per KG per minute. Note that the patient had issues with a significant leak around his orotracheal tube. This was replaced yesterday by [employer] without any major difficulties. This morning, he remains on a VC plus mode with a rate of 28 and a tidal volume of 450 and a nighttime of 1 second with a PEEP of 15 with an FiO2 of 50%. Blood gases from today showed a pH of 7.36 with a pCO2 of 37 and pO2 of 92. Chest x-ray showing diffuse bilateral pulmonary infiltrates. His cardiac rhythm is still in atrial fibrillation. He is on amiodarone maintenance at 0.5 mg per minute. The patient has a creatinine of 1.5. There is still evidence of transaminitis with elevation of the AST and ALP and both are improving. LDH level is elevated at 5738. CPKs improving at 2431. C-reactive protein is elevated at 622. Note that the LDH is on the decline, CPKs on the decline on today's evaluation. LFTs are also improving. On 08/08/2019 on seeing this patient for a follow-up. The patient has been off sedation since yesterday. I am not seeing an adequate neurologic recovery in this patient. There may be a component of hepatic encephalopathy in the patient's went into shock liver. Nevertheless, his ammonia is dropping. He is on lactulose. He is producing adequate amount of bowel activity. He is undergoing training the painful stimulation. Pupils are about 3 mm in size and there is C-reactive to light. There is a very weak cough and a gag. Absolutely no response to deep painful stimulation. No seizure activity has been noted. Neurology will be consulted on the case. EEG will be ordered. Meanwhile, the patient is clearly becoming a case of possible aspiration staphylococcal pneumonia. His blood culture came back positive for staph aureus. His sputum positive for staph. He also has gram-negative bacillus in his sputum which turner in to be E. coli. For now, the cultures and the blood to be MSSA. The patient was on examination of cefepime and vancomycin. I dropped the cefepime and I u tilized Zosyn to give him better anaerobic coverage as the patient clearly has a history of aspiration. Meanwhile, the Covid test came back negative. The patient remains on a mechanical ventilator. On today's chest x-ray there is worsening over the bilateral pulmonary infiltrates worse on the right. ET tube remains in a good location. The patient remains on an assist-control mode at the rate of 18 with a tidal volume of 450 and FiO2 of 50% with a PEEP of 10. Blood gas showed a pH of 7.46 with a pCO2 of 34 and pO2 of 103. CVP is ranging between 12 and 14. He remains in atrial fibrillation. He is on amiodarone drip maintenance at 0.5 mg per minute. He is also on normal saline at the rate of 75 mL an hour. His age fibrillation is under better control and he is on no pressors. He can tolerate beta blockers. He is having low-grade fever still. The white cell count is up to 22. The shock liver is improving including the AST and ALP level. The LDH level was elevated. The CPKs also improving is down to 2431. His ammonia level is down to 85. His coagulation profile is within normal limits. On 08/09/2019 the patient is being seen in follow-up in intensive care unit. Unfortunately, the patient has been off sedation for more than 24 hours and the patient is still not showing significant neurologic recovery. The patient is not following any specific commands. In fact he is not even withdrawing to deep painful stimulation. No seizure activity has been noted. EEG was done and showed diffuse slowing and it was consistent with severe encephalopathy which could be toxic metabolic encephalopathy versus hypoxic encephalopathy. The patient will be kept off sedation. Meanwhile, the ammonia level is progressively coming down and is down to 58. He continues to have a week cough and gag reflex. The patient remains in atrial fibrillation. The patient remained on assist control mode of ventilation. He is on VC plus mode at the rate of 28 with a tidal volume of 450 and FiO2 of 50% with a PEEP of 10. The blood gases from today shows a component of respiratory alkalosis with a pH of 7.5 with a pCO2 of 36 and pO2 of 71. The white cell count of 23. The patient has developed some hyperchloremic hypernatremia in the sodium level is up to 147 with a chloride of 114. Renal function is stable. The patient is receiving vital high protein at the rate of 52 mL an hour. In terms of atrial fibrillation, I had utilized back the amiodarone drip at 0.5 mg per minute and the patient is also on metoprolol 50 mg by mouth 3 times a day. Heart rate is still slightly tachycardic and will continue the same regimen for now. The patient was given a dose of Lasix yesterday. The patient Is producing better urine output for now. His weight is still up. The CPKs down to 395. The AST is down to 1000. ALT is down to 58. LDH is down to 03/10/2007. Calcium level at 7.1. No other significant issues otherwise over the past 24 hours. He remains on a combination of Zosyn and vancomycin. The blood culture and the sputum culture was positive for MSSA. The sputum culture was positive for E. coli. The chest x-ray still showing rather consolidation worse on the right compared to the left. ET tube remains in a good location. On 08/10/2019 the patient has been approximately 72 hours of sedation. Unfortunately, we do not see any significant neurologic recovery the patient's condition. He is still not responding to any verbal or deep painful stimulation. He remains completely unresponsive. On this morning, I have a mild assist-control mode of ventilation with a VC plus mode at a tidal volume of 450 FiO2 of 50% with a PEEP of 10 and the respiratory rate of 24. His blood gases showed a component of respiratory alkalosis. His pH is at 7.53 with a pC O2 of 39 pO2 of 63. Chest x-ray still showing bilateral pneumonia bilateral airspace disease worse on the right along with cardiomegaly and bilateral pleural effusions. ET tube is in a good location. The patient's white cell count is at 27. The patient is still having episodes of fever. Most recent blood culture from 2 days ago was positive for MSSA and MSSA was also cultured and his lungs and it was cultured also E. coli in his lungs. We are still thinking that this was an aspiration pneumonia. Shock liver, his LFTs are nearly normalized, severe has also dropped and ammonia level is being monitored is still elevated at 83. The lactulose was held as the patient was having liquidy stool and the patient had become also hyperchloremic and the sodium level is up to 149. He is receiving free water supplements with NG for now. He is also on vital high protein. In terms of his atrial fibrillation, rate is under better control with a combination of amiodarone maintenance of 0.5 mg per minute and Cardizem drip at 10 mg an hour. The patient is also on IV heparin. The active issue for now is his altered mentation. On 08/11/2019, I'm seeing the patient for a follow-up in intensive care unit. His been off sedation for the past 92 hours. On today's evaluation that is some slight grimacing upon very deep painful stimulation and upon pinching on his upper chest. For the most part he remains unresponsive. No seizure activity. Shock liver has recovered. Ammonia level is on the decline. I started the patient on rifixamine 550 mg by mouth twice a day yesterday and ammonia level is down to 45. I suspect a component of hypoxic encephalopathy although the possibility of metabolic encephalopathy cannot be completely ruled out. He is on a mechanical ventilator. No change in the vent setting. No changes in the x-ray findings as the patient has extensive airspace disease bilaterally more so on the right lower lobe. On the ventilator, the patient is on a VC plus mode with a tidal volume of 450 and FiO2 of 50% with a PEEP of 10 and tidal volume of 450 with a rate of 16. The patient's blood gas showed a pH of 7.52 with a pCO2 of 39 and pO2 of 67. On and off he was still having fever yesterday. Repeat blood cultures were sent. He remains on examination Zosyn and vancomycin. He is tolerating his enteral feeding for nutritional support. Is on IV heparin drip regarding his atrial fibrillation. He remains on amiodarone drip and oral metoprolol for rate control. He is also started on Cleviprex which is running at 2 mg an hour for tighter blood pressure control. The active issue remains his altered mentation with a possibility of him having hypoxic encephalopathy with the details as mentioned above. Patient was reevaluated today on 08/12/19, remains on mechanical ventilation, his ventilator settings are assist control rate 16 volume control plus at 450 FiO2 at 50% and PEEP of 10. ABG showed a pO2 of 79 pCO2 of 39 pH of 7.52. Chest x- ray continues to show bilateral pleural effusions, and by basilar space disease, hence I recommended ultrasound to evaluate for possible thoracentesis if the effusion isn't large enough to be drained. However the ultrasound showed minimal pleural effusions bilaterally, insufficient for thoracentesis. Patient remains on Zosyn and vancomycin, and he hasn't MSSA bacteremia, sputum is positive for E. coli and staph aureus. Neurologically the patient is about the same, however the only change noted today is the fact that the patient tries to open his eyes and grimacing upon deep painful stimuli. Remains off narcotics and sedatives. WBC count is up to 25.3 today slightly improved compared to yesterday. Basic metabolic profile is basically normal and his BUN is improving down to 38 creatinine is 0.55. Liver enzymes are steadily improving. Ammonia is 60 today. It was as high as 146 about a week ago remains on rifaximin. Reevaluated today on, patient remains in the ICU, intubated and mechani raul ventilated. Yesterday the patient had significant agitation and he had to be placed back on propofol. This morning the propofol was discontinued, and the patient seems to be more responsive to stimuli/verbal stimuli patient is opening his eyes, wiggling his toes, seems to be slow but at least the best I have seen him so far. Hence I kept the propofol off, and I will give the patient a chance to go on a weaning trial if possible. He is not quite ready to start weaning but we will continue to hold propofol and address hourly today for possible placement on pressure support and CPAP. Presently the patient is on mechanical ventilation with assist control rate of 16, volume is 450 FiO2 dropped down from 60% to 50% and his PEEP was decreased to 8. His ABG this morning showed a pO2 of 124 pCO2 of 48 pH of 7.44 patient is on propofol which is presently on hold. He is on clindamycin and for his MSSA bacteremia. He is on enteral tube feeding. Chest x-ray continues to show small areas of pneumonia bilaterally, and possibly a small right sided pleural effusion not large enough to consider thoracentesis as noted on ultrasound On 08/14/2019 patient seen in follow-up, in the intensive care unit, he remains intubated, on mechanical ventilator, on assist control mode of ventilation with FiO2 of 50%. This morning blood gases showed pO2 of 112, pCO2 45, and pH of 7.48. IV 0.9 normal saline at a rate of 10 ML per hour, heparin per weight- based protocol, and Diprivan has been on hold. Patient is lethargic although she is waking up and follow commands, wiggling toes on command. Appears to be in no acute distress, today's chest x-ray has been reviewed showing diffuse pleural parenchymal changes consistent with pulmonary edema or ARDS. Patient continues on Kefzol and Clindamycin for MSSA and E. coli pneumonia and bacteremia, follow-up blood cultures have been negative. Patient has been afebrile, hemodynamically stable, not on any vasopressors, today's labs have been reviewed, leukocytosis is down trending, WBC is down to 18.7, hemoglobin is 9.7, sodium is 142, potassium is 3.3, chloride is 108, CO2 32, BUN is 37 and creatinine 0.53. Patient in sinus rhythm, he remains on oral amiodarone, and heparin infusion for anticoagulation. Diuretics with Lasix 40 mg every 12 hours On 08/19/2019 patient seen in follow-up in intensive care unit. Patient was successfully weaned and extubated on 08/16/2019, he is currently on 6 L of oxygen the pulse ox of 94%, afebrile, hemodynamically patient is stable, patient is on IV fluids 0.9 normal saline at a rate of 10 ML per hour, he is very generally weak, he can hardly move his fingers. Patient is awake, oriented to self and the place, he is following command. He denies any acute distress, lung sounds reveal scattered rhonchi bilaterally, patient is able to cough and expectorate yellowish colored phlegm at times. Physical therapy has been working with the patient however patient is extremely weak, and has only been able to sit in the chair position in bed. Upper and lower extremities are positive for 1+ edema, patient remains on daily dose of oral Lasix at 40 mg daily. He is in -150 ML fluid balance over the last 24 hours. We'll give the patient additional dose of IV Lasix 60 mg this morning, this morning patient is requiring increasing amount of oxygen, and he was placed on BiPAP with pressures of 12 and 5 and 50%. This morning's chest x-ray shows increasing diffuse bilateral airspace disease likely related to pulmonary edema with persistent moderate pleural effusions. Patient did have a bedside bronchoscopy with bronchoalveolar lavage on 08/16/2019, and Gram stain has shown no organisms. H is sputum culture from 08/05/2019 was positive for MSSA, and E. coli, and blood cultures from 08/05/2019, and 08/07/2019 were positive for MSSA. Patient is on clindamycin and For Antibiotic Coverage. He is currently in sinus rhythm, he is on Eliquis for paroxysmal atrial fibrillation and oral Cordarone. On 08/20/2019 patient seen in follow-up in intensive care unit, yesterday he required placement on BiPAP later to his increased dyspnea and hypoxia. He tolerated it well, this morning she is on 8 L per high flow nasal cannula with a pulse ox of 94-97%, mildly dyspneic with conversation, but no acute distress, BiPAP was removed at 2100 last night. Patient was given additional Lasix yester day, and he is in -1.2 L over the last 24 hours. Still has some 1+ pitting edema involving upper and lower extremities. Still is very weak, and unable to lift up his arms off the bed. Lung sounds reveal scattered rhonchi, but less congested on today's exam. he is on full liquid diet, but requires intensive assistance with ADLs including feeding. Physical therapy is on consult and is following with the patient. Low-grade fevers with a T-max 99.0F over the last 24 hours, hemodynamically stable, IV fluids included D5W at a rate of 50 MLS per hour. We will switch to 0.9 normal saline at a 20 ML per hour, patient is on oral Eliquis for paroxysmal atrial fibrillation, and currently remains in sinus rhythm. Remains on Diamox. On 08/26/2019 patient seen in intensive care unit, he is awake and alert, in no acute distress, he is oriented 3, likely on 6 L of oxygen the pulse ox of 88-92%, no worsening dyspnea, he remains weak, however stronger compared to last week. He is participating with physical therapy, still unable to feed himself, still requires extensive assistance with all ADLs including feeding bathing and toileting, afebrile. Hemodynamically patient is stable, remains in sinus mechanism. 0.9 normal saline at a rate of 20 ML per hour, antibiotic coverage in the form of cefazolin. Remains on IV Lasix at 40 mg every 8 hours, and he is in -770 ML fluid balance over the last 24 hours. Has some residual mild upper and lower extremity edema, lung sounds reveal diminished breath sounds at the bases, no rhonchi, no wheezing. Today's chest x-ray shows mild cardiomegaly with central vessel congestion and small to moderate-sized right greater than left pleural effusions. Ultrasound the chest yesterday showed a right pleural effusion of 12.0 cm pocket. On 08/27/2019 patient seen in follow-up on general medical floor, apparently he appears to be more short of breath today, quite dyspneic, and his FiO2 is up 200% per 100% nonrebreather mask. Repeat chest x-ray shows moderate to large size right pleural effusion, and persistent diffuse left lung infiltrate. Mary Beth fitzpatrick remains on IV diuretics, 40 mg every 8 hours, he is in sinus mechanism. We proceeded with right-sided thoracentesis at the bedside by Dr. So would removal of 1.4 L of turbid dark colored pleural fluid which was sent for analysis. he tolerated procedure well, he remains quite weak. On 08/28/2019 patient seen in follow-up on general medical floor, he is awake and alert, in no acute distress, currently on 12 L of oxygen per high flow nasal cannula, denies any acute distress, lung sounds reveal crackles at bilateral lower bases, patient is status post thoracentesis on the right side on 08/27/2019 with removal of 1.4 L of dark colored pleural fluid which was sent for analysis and cytology. Analysis revealed exudative fluid with high LDH and total protein of 4.1 g. Pleural fluid cultures are pending, Gram stain has shown no organisms thus far. Patient remains on diuretics at 40 mg every 8 hours. And patient has produced 4 L in the urine output in the last 24 hours, and he is in -3.3 L. Today's labs have been reviewed, showing white blood cell count of 11.4, hemoglobin of 8.7, sodium of 131, potassium is 3.4, chloride is 88, CO2 is 33, BUN of 14, creatinine 0.69. Current antibiotic coverage is with IV Zosyn. On 08/29/2019 patient is seen in follow-up on general medical floor. He is awake and alert, he is resting in bed, still requiring 12 L of oxygen and the pu lse ox is only 90-91%, patient has been receiving physiotherapy, he is on breathing treatments, he remains on IV diuretics at 40 mg every 12 hours. His chest x-ray has been reviewed showing increasingly diffuse infiltrate throughout the left lung and moderate right pleural fluid likely loculated. Patient remains on Zosyn for antibiotic coverage. Patient is status post right-sided thoracentesis in cytology was negative for diagnostic features of neoplasm. Pleural fluid with exudative in nature, cultures are pending, Gram stain has shown no growth at the 48 hour yovanny. he remains weak and debilitated, he was able to sit up with extensive assistance yesterday in the chair, he is improving, however still has significant weakness On 09/02/2019 patient seen in follow-up on the [facility] medical floor, he is awake and alert, FiO2 is down to 4 L per nasal cannula, his pulse ox is 97%, he is looking and feeling significantly better compared to last week, sitting up in the recliner, breathing is comfortable, no significant cough or congestion, no fever or chills, he remains on Lasix at 40 mg every 12 hours, breathing treatments, and antibiotics with a combination of Zosyn and Zyvox. ID service is following, no reports of hemoptysis, no chest pain. No worsening dyspnea. Patient is using a urinal, he is in -2.7 L over last 24 hours. Lung sounds revealed diminished breath sounds at the bases with some limited crackles. Today's labs show sodium level of 1:30, potassium 3.5, chloride is 87, CO2 is 36, BUN is 19 creatinine 0.9. Patient is status post ultrasound-guided right thoracentesis by interventional radiology with removal of 0.3 L of serous fluid. Objective - Vital Signs Vital signs: Vital Signs Temp 97.5 F L 09/02/19 07:00 Pulse 57 L 09/02/19 11:40 Resp 18 09/02/19 08:00 BP 170/79 09/02/19 07:00 Pulse Ox 97 09/02/19 11:28 Intake & Output 09/01/19 09/02/19 09/02/19 18:59 06:59 18:59 Intake Total 376 300 Output Total 400 3000 400 Balance - -9511 -400 Weight 90 kg 86.5 kg Intake: IV 140 Sodium Chloride 0.9% 500 140 ml 500 ml @ 20 mls/hr IV .Q24H [facility] Rx#:[id number] Oral 236 300 Output: Urine 400 3000 400 Other: Voiding Method Indwelling Catheter # Voids 1 1 ABP, PAP, CO, CI - Last Documented Arterial Blood Pressure 151/56 - Exam GENERAL EXAM: Awake and alert, oriented to self and place 64-year-old white male, on 4 L per high flow nasal cannula 97%, patient is answering questions appropriately, he is oriented 3, he sitting up in a recliner, appears much stronger compared last week HEAD: Normocephalic/atraumatic. EYES: Normal reaction of pupils, equal size. Conjunctiva pink, sclera white. NOSE: Clear with pink turbinates. THROAT: No erythema or exudates. NECK: No masses, no JVD, no thyroid enlargement, no adenopathy. CHEST: No chest wall deformity. Symmetrical expansion. LUNGS: Equal air entry with bibasilar crackles CVS: Regular rate and rhythm, normal S1 and S2, no gallops, no murmurs, no rubs ABDOMEN: Soft, nontender. No hepatosplenomegaly, normal bowel sounds, no guarding or rigidity. EXTREMITIES: No clubbing, no edema, no cyanosis, 2+ pulses and upper and lower extremities. MUSCULOSKELETAL: Muscle strength and tone normal. SPINE: No scoliosis or deformity SKIN: No rashes CENTRAL NERVOUS SYSTEM: Awake and alert, generally weak, 64-year-old white male, on 12 L of oxygen. No focal deficits, tone is normal in all 4 extremities. - Labs CBC & Chem 7: 09/01/19 07:05 09/02/19 09:13 Labs: Abnormal Lab Results - Last 24 Hours (Table) 09/02/19 Range/Units 09:13 Sodium 130 L (137-145) mmol/L Chloride 87 L (98-107) mmol/L Carbon Dioxide 36 H (22-30) mmol/L Glucose 100 H (74-99) mg/dL Calcium 8.3 L (8.4-10.2) mg/dL Magnesium 1.5 L (1.6-2.3) mg/dL Microbiology - Last 24 Hours (Table) 08/27/19 11:05 Blood Culture - Preliminary Blood No Growth after 120 hours Assessment and Plan Plan: Assessment: #1. Acute hypoxic and hypercapnic respiratory failure related to MSSA and E. coli pneumonia and sepsis, requiring intubation and mechanical ventilator support, successfully weaned and extubated on 08/16/2019. Patient had bronchoscopy with BAL on 08/16/2019 and so far the blood cultures are negative #2. Bilateral pleural effusions, status post right-sided thoracentesis today on 08/27/2019 would removal of 1.4 L of turbid dark colored pleural fluid which was sent for analysis, which showed exudative fluid, cytology is negative, cultures pending, Gram stain showed no organisms. Repeat thoracentesis on the right side was done with ultrasound guidance by interventional radiology on 08/30/2019 would removal of 300 mL of pleural fluid which was discarded #3. MSSA bacteremia #4. Acute kidney injury, improving. Secondary to acute sepsis. #5. Acute sepsis, and acute lactic acidosis on presentation, improved #6. Chronic psychiatric disorder/bipolar disorder. #7. Dyslipidemia. #8. Benign essential hypertension. #9. Shock liver, improved . #10. Acute rhabdomyolysis, resolved #11. Pulmonary hypertension. #12. Staph aureus septicemia, MSSA. #13. Hyperchloremic hypernatremia secondary to diarrhea and intravascular volume depletion. Improved with D5W. #14. Acute hepatic/metabolic encephalopathy, improved #15. Severe generalized weakness #16. Hypernatremia likely related to free water deficit, improved #17. Hyponatremia, likely related to D5W infusion, overcorrected hypernatremia, we'll restrict oral fluids Plan: Continue current medical treatment, patient is maintaining negative fluid balance, pleural fluid cultures have been negative, cytology is negative. Clinically patient is improving, he appears to be much stronger, he denies any worsening dyspnea, continue weaning FiO2, continue encouraging deep breathing and coughing, pulmonary toileting, chest physiotherapy, aggressive physical therapy. No acute issues overnight, from pulmonary perspective patient is stable for discharge to subacute rehab today. He will need outpatient follow-up with Dr. So in the office in 7-10 days. I performed a history & physical examination of the patient and discussed their management with my nurse practitioner, Radha Silav. I reviewed the nurse practitioner's note and agree with the documented findings and plan of care. Lung sounds are positive for diminished breath sounds. The findings and the impression was discussed with the patient. I attest to the documentation by the nurse practitioner. Time with Patient: Less than 30
[2019-09-02] MEDS: MAGNESIUM SULFATE-D5W PMX 1 GM in DEXTROSE/WATER 1 100ML.BAG IVPB SCH ×2 (14:01→15:00)
[2019-09-02 14:28] VITALS: BMI 26.6
--- NOTE | 2019-09-02 19:03 | PN ---
PROGRESS NOTE DATE OF SERVICE: 09/02/2019 REASON FOR FOLLOWUP: Pneumonia. INTERVAL HISTORY: The patient is currently afebrile, has been breathing more comfortably. The FiO2 is cut down to 4 L. No chest pain or shortness of breath. Occasional cough. No abdominal pain or diarrhea. PHYSICAL EXAMINATION: Blood pressure 169/86, pulse of 60, temperature 98.4. He is 90% on 4 L nasal cannula. General description is a middle-aged male up in the bed in no distress. RESPIRATORY SYSTEM: Unlabored breathing. Decreased breath sounds at the base. No wheeze. HEART: S1, S2. Regular rate and rhythm. ABDOMEN: Soft. No tenderness. LABS: BUN of 19, creatinine 0.99. DIAGNOSTIC IMPRESSION AND PLAN: Patient with nosocomial pneumonia with recent methicillin-susceptible Staphylococcus aeruginosa bacteremia and pneumonia. The patient is currently on Zosyn and Zyvox, which can be transitioned to oral Avelox and oral Zyvox for about a week on discharge to finish course of therapy. Continue supportive care. MMODL / IJN: [id number] /
[2019-09-02] MEDS: LINEZOLID 600 MG TAB PO SCH (22:27)
[2019-09-03] MEDS: PIPERACILLIN-TAZOBACTAM 3.375 GM in SODIUM CHLORIDE 0.9% 100 ML IVPB SCH ×2 (00:30→07:12)
[2019-09-03] MEDS: HYDROmorphone 1 MG/ML 1 ML SYRINGE IVP PRN (02:58)
[2019-09-03] MEDS: AMIODARONE 200 MG TAB PO SCH (07:10)
[2019-09-03] MEDS: PANTOPRAZOLE 40 MG TABLET PO SCH (07:10)
[2019-09-03] MEDS: ALPRAZolam 0.25 MG TAB PO PRN (07:10)
[2019-09-03] MEDS: oxyCODONE-APAP 5-325MG 1 EACH TAB PO PRN ×2 (07:11→13:06)
[2019-09-03] MEDS: LINEZOLID 600 MG TAB PO SCH (07:11)
[2019-09-03] MEDS: FUROSEMIDE 10 MG/ML 4 ML VIAL IV SCH (07:11)
[2019-09-03] MEDS: METOPROLOL TARTRATE 50 MG TAB PO SCH (07:11)
[2019-09-03] MEDS: HEPARIN SODIUM,PORCINE 5,000 UNIT/ML 1 ML VIAL SQ SCH ×2 (07:17→07:18)
--- NOTE | 2019-09-03 08:18 | P.PN ---
Subjective This is a pleasant 64 years old male with multiple medical problems who presents initially with acute hypoxic failure, fever and altered mental status patient was sewn intubated and found to have pneumonia secondary to MSSA and E coli, also patient had acute kidney injury and MSSA bacteremia. Call the test was negative 2. Patient has prolonged course in the ICU, please review the records and previous notes Patient is status post extubation on 08/15. He is more alert and awake. And he is saturating and 90s on 60 to oxygen nasal cannula, breathing at a rate of 18/m. Rest of vitals looks stable. He is alert and awake at more stable. CBC and BMP looks stable, magnesium was low at 1.4, recheck magnesium He remains on cefazolin since 08/21 for persistent bacteremia and pneumonia with MSSA. Also he is on Lasix 40 mg 3 times a day and metoprolol 50 mg 3 times a day. 08/27/2019 Patient is seen and examined in the general medical floor, is awake and alert oriented, is slightly dyspneic, is saturating 89-94% on 15 L via nonrebreather. Yesterday he was saturating low 90s on 6 L of oxygen via nasal cannula. Hemodynamically stable. Labs from today are pending. Chest x-ray from this morning: Persistent moderate to large right pleural effusion and moderate left-sided pleural effusion with compressive atelectasis. Associated with some infiltrated and/or edema. Patient remains on cefazolin and Lasix 40 mg 3 times a day. Patient is followed closely by pulmonary team as well. We will follow up with pulmonary about further recommendation 08/28/2019 Patient status post right thoracocentesis about 1.4 L of fluid removed, he is still a little bit tachypneic , he is saturating 90s on 3 L oxygen via high flow nasal cannula. Is awake and alert, no chest pain or significant coughing. WBC trending down to 11.4 K, hemoglobin 8.7, platelets is normal. Sodium 131, potassium 3.4, creatinine is normal. Repeat chest x-ray this morning: Showing stable chest, pneumonia. Patient was found closely by pulmonary team as well He remains on cefazolin and Lasix IV 40 mg 3 times a day. 08/29/2019 Patient status post right thoracocentesis about 1.4 L of fluid removed, today is postprocedure day #2. His breathing is stable, however his distal tachypneic and on 12 L of oxygen with saturation of 91%. No other complaints. WBC is 11.4 yesterday and today pending. As well as other labs CT of the chest done yesterday showing suprahilar opacity 2.6 cm that needs follow-up, left pleural effusion small to moderate, decrease in the right pleural effusion with no loculated effusion. He has worsening bilateral groundglass opacity We will retest for covid, he had 2 negative samples before. Newton catheter in place with dark color urine. His antibiotics has been changed to Zyvox and Zosyn. This along with Lasix IV twice daily 08/30/2019 Patient status post right thoracocentesis about 1.4 L of fluid removed, today is postprocedure day #3. He still saturating 90s on 12 L oxygen since yesterday. Overnight he got some breathing difficulty was relieved with bronchodilator therapy, he has tenacious phlegm with occasional coughing. He is not in respiratory distress now. Abdomen is benign and he has Newton catheter with clear urine. Afebrile since 08/26 when he had had a degree Fahrenheit. WBCs back to normal yesterday 9.0K, sodium 128. Creatinine is normal, Low magnesium was replaced He remains on Lasix IV and his antibiotics has been changed to Zyvox and Zosyn He might need a repeat thoracocentesis and/or bronchoscopy 08/31/2019 Patient status post right thoracocentesis about 1.4 L of fluid removed, today is postprocedure day #4. Is doing better today, more easy breathing and his oxygen requirements dropped to 7 L/m. No other new complaints. Vitals are stable. CBC and WBC Remains on Zyvox and Zosyn as well as Lasix 40 mg twice daily 09/01/2019 Patient showing some improvement, he needed in this oxygen requirements today as 5 L/m via nasal cannula. No chest pain.. No abdominal complaint Still has Newton catheter. Vitals looks stable, CBC is unremarkable, sodium 128 and low potassium was replaced. He's on Zyvox and Zosyn and Lasix IV 09/02/2019 Patient is improving gradually is currently on 4-5 L oxygen via nasal cannula and saturating in the 90s, maybe we can taper down his oxygen furthermore today. As he remains on Zyvox and Zosyn for his pneumonia, he will need these antibiotics for about a week as there is no sputum culture, as per infectious disease service for recommendations He is also on intravenous Lasix , his weight on admission was 107 is 0.2 kg, currently uses Robby 90 kg Chest x-ray: Mild CHF, bibasilar air space disease worse on the right, bilateral effusion director on the right Vitals stable. Objective - Vital Signs Vital signs: Vital Signs Temp 98.7 F 09/01/19 20:00 Pulse 60 09/01/19 21:02 Resp 16 09/01/19 20:00 BP 167/79 09/01/19 20:00 Pulse Ox 97 09/01/19 15:00 Intake & Output 09/01/19 09/02/19 09/02/19 18:59 06:59 18:59 Intake Total 376 300 Output Total 400 3000 Balance -24 -2700 Weight 90 kg Intake: IV 140 Sodium Chloride 0.9% 500 140 ml 500 ml @ 20 mls/hr IV .Q24H [facility] Rx#:[id number] Oral 236 300 Output: Urine 400 3000 Other: Voiding Method Indwelling Catheter # Voids 1 1 ABP, PAP, CO, CI - Last Documented Arterial Blood Pressure 151/56 - Exam -GENERAL: The patient is alert and oriented x3, not in any acute distress. Generally weak HEENT: Pupils are round and equally reacting to light. EOMI. No scleral icterus. No conjunctival pallor. Normocephalic, atraumatic. No pharyngeal erythema. No thyromegaly. CARDIOVASCULAR: S1 and S2 present. No murmurs, rubs, or gallops. -PULMONARY: Chest is clear to auscultation, no wheezing or crackles. Decreased breath sounds both basal inferior ABDOMEN: Soft, nontender, nondistended, normoactive bowel sounds. No palpable organomegaly. MUSCULOSKELETAL: No joint swelling or deformity. EXTREMITIES: No cyanosis, clubbing, or pedal edema. NEUROLOGICAL: Gross neurological examination did not reveal any focal deficits. SKIN: No rashes. no petechiae. - Labs CBC & Chem 7: 09/01/19 07:05 09/02/19 09:13 Labs: Abnormal Lab Results - Last 24 Hours (Table) 09/01/19 09/01/19 09/01/19 Range/Units 07:05 07:05 07:05 RBC 2.81 L (4.30-5.90) m/uL Hgb 7.4 L (13.0-17.5) gm/dL Hct 23.1 L (39.0-53.0) % Plt Count 488 H (150-450) k/uL Lymphocytes # 0.8 L (1.0-4.8) k/uL Sodium 128 L (137-145) mmol/L Potassium 3.0 L (3.5-5.1) mmol/L Chloride 85 L (98-107) mmol/L Carbon Dioxide 33 H (22-30) mmol/L Calcium 7.7 L (8.4-10.2) mg/dL Magnesium 1.5 L (1.6-2.3) mg/dL Microbiology - Last 24 Hours (Table) 08/27/19 11:05 Blood Culture - Preliminary Blood No Growth after 120 hours Assessment and Plan Assessment: -Acute hypoxic and hypercapnic respiratory failure secondary to MSSA and E. coli pneumonia. patient is currently extubated. Patient is currently on cefazolin -Bilateral pleural effusion, right more than left, pulmonary and the case, possible need thoracocentesis. Patient is currently on Lasix -persistent bacteremia with MSSA. Patient patient was switched to cefazolin. repeat cultures have been negative. --Severe toxic encephalopathy from sepsis and septic shock. Improving. -Acute renal failure possibly acute tubular necrosis patient creatinine improved with IV fluids -Lactic acidosis secondary to sepsis, improved -Hypertension -Hyperlipidemia next and heparin hypertension -Elevated liver enzymes probably secondary to shock liver. -Hepatic encephalopathy: Ammonia level is bit better now. -Troponin leak secondary to myocardial injury from sepsis. -Severe pulmonary hypertension -Generalized weakness and fatigue expect pt to be discharged soon if keep improving
--- NOTE | 2019-09-03 08:54 | P.DS ---
Providers Date of admission: 08/05/19 13:46 Attending physician: Korin Alvarado Consults: 08/05/19 13:45 Consult Physician Stat Consulting Provider: Kamilla So Consult Reason/Comments: icu patient Do you want consulting provider notified?: Yes 08/05/19 16:27 Consult Physician Stat Consulting Provider: Palmer Díaz Consult Reason/Comments: covid patient Do you want consulting provider notified?: Yes 08/08/19 08:37 Consult Physician Urgent Consulting Provider: Aleksandr Lozoya Consult Reason/Comments: pt off propofol on vent 24 hrs, unresponsive Do you want consulting provider notified?: Yes Primary care physician: Stated None Hospital Course: diagnoses: -Acute hypoxic and hypercapnic respiratory failure secondary to MSSA and E. coli pneumonia. patient is currently extubated. -Bilateral pleural effusion, right more than left, status post thoracocentesis. Patient is currently on Lasix -persistent bacteremia with MSSA. repeat cultures have been negative.discharge on oral antibiotics -Severe toxic encephalopathy from sepsis and septic shock. Improving.back to baseline -Acute renal failure possibly acute tubular necrosis patient creatinine improved with IV fluids -Lactic acidosis secondary to sepsis, improved -Hypertension -Hyperlipidemia next and heparin hypertension -Elevated liver enzymes probably secondary to shock liver. -Hepatic encephalopathy: Ammonia level is bit better now. -Troponin leak secondary to myocardial injury from sepsis. -Severe pulmonary hypertension -Generalized weakness and fatigue Hospital course: This is a pleasant 64 years old male with multiple medical problems who presents initially with acute hypoxic failure, fever and altered mental status patient was then intubated and found to have pneumonia secondary to MSSA and E coli, als o patient had acute kidney injury and MSSA bacteremia. Covid test was negative 2. Patient has prolonged course in the ICU while on mechanical ventilation, Patient is status post extubation on 08/15.patient remained to need high-dose of oxygen 12-15 L/m via nasal cannula. repeat Chest x-ray: Persistent moderate to large right pleural effusion and moderate left-sided pleural effusion with compressive atelectasis. Associated with some infiltrated and/or edema. patient underwentright thoracocentesis about 1.4 L of fluid removed,also his antibiotics were changed to Zyvox and Zosyn. After that patient oxygen start improving until we discharged on 4-5 L of oxygen via nasal cannula. His rhythm currently and denies chest pain. Newton catheter was taken out patient's peeing without problem.patient diuresed well his weight on admission was 107 is 0.2 kg, currently uses Weighs 86.5 kg -Patient also has right supra hilar opacity 2.6 cm seen on CAT scan on 08/27, with recommendation to follow up with Dr. So in 7-10 days Patient was cleared for discharge by pulmonary and infectious disease Patient will be discharged on one week of Zyvox and Avelox and also on oral Lasix Problems and management plan were discussed with the patient and he verbalized understanding and acceptance Patient was found stable and can be discharged home however he needs follow-up as an outpatient. Patient was instructed to follow up with PCP within one week and patient agrees. Also patient was instructed to follow up with his supervisor incising Dr. So in 7-10 days and he agrees Gen: patient is a AAOx3, no distress CVS: S1-S2, RRR, no murmur -Lungs: B/L CTA, no wheezing. Bilateral crepitation. oxygen via Nasal cannula Abdomen: soft, no distention, no tenderness, positive bowel sounds -Extremity: mild bilateral leg edema or induration Time spent more than 35 minutes Patient Condition at Discharge: Critical Plan - Discharge Summary Discharge Rx Participant: No New Discharge Prescriptions: New Moxifloxacin HCl [Avelox] 400 mg PO DAILY 7 Days #7 tablet Amiodarone [Cordarone] 400 mg PO BID tab Bisacodyl [Dulcolax] 5 mg PO DAILY PRN tablet. PRN Reason: Constipation Ipratropium-Albuterol Nebulize [Duoneb 0.5 mg-3 mg/3 ml Soln] 3 ml INHALATION RT-Q4H PRN ml PRN Reason: Shortness Of Breath Or Wheezing Ipratropium-Albuterol Nebulize [Duoneb 0.5 mg-3 mg/3 ml Soln] 3 ml INHALATION RT-QID ml Heparin Sodium,Porcine [Heparin Sodium] 5,000 unit SQ Q8HR vial Furosemide [Lasix] 40 mg PO BID #60 tablet Metoprolol Tartrate [Lopressor] 50 mg PO TID tab Magnesium Hydroxide [Milk of Magnesia Concentrate] 2,400 mg PO BID PRN ml PRN Reason: Constipation oxyCODONE-APAP 5-325MG [Percocet 5-325 mg] 1 each PO BID PRN 4 Days #2 tab PRN Reason: MODERATE Pain Pantoprazole [Protonix] 40 mg PO AC-BRKFST 20 Days #20 tablet.dr Acetaminophen Tab [Tylenol] 650 mg PO Q4HR PRN tab PRN Reason: Fever and/ or MILD Pain Linezolid [Zyvox] 600 mg PO BID 7 Days #14 tab Continue Rosuvastatin Calcium [Crestor] 5 mg PO HS Fenofibrate Nanocrystallized [Fenofibrate] 145 mg PO DAILY Albuterol Sulfate [Ventolin HFA] 1 - 2 puff INHALATION RT-Q6H PRN PRN Reason: Shortness Of Breath Vascepa 1gm 2 gm PO BID Dextroamphetamine/Amphetamine [Adderall] 30 mg PO BID diphenhydrAMINE [Benadryl] 50 mg PO HS PRN 28 Days cap PRN Reason: Insomnia Aspirin EC [Ecotrin Low Dose] 81 mg PO DAILY Chlorthalidone 25 mg PO DAILY Divalproex ER [Depakote ER] 500 mg PO BID Discontinued amLODIPine [Norvasc] 5 mg PO BID Metoprolol Tartrate [Lopressor] 25 mg PO BID chlordiazePOXIDE HCl [Librium] 25 mg PO TID 14 Days cap Acetaminophen with Codeine [Tylenol with Codeine #4 Tablet] 1 tab PO Q4-6H PRN PRN Reason: Pain Cyclobenzaprine [Flexeril] 10 mg PO HS Discharge Medication List Rosuvastatin Calcium [Crestor] 5 mg PO HS 06/02/17 [History] Fenofibrate Nanocrystallized [Fenofibrate] 145 mg PO DAILY 10/30/17 [History] Albuterol Sulfate [Ventolin HFA] 1 - 2 puff INHALATION RT-Q6H PRN 12/29/18 [History] Dextroamphetamine/Amphetamine [Adderall] 30 mg PO BID 12/29/18 [History] Vascepa 1gm 2 gm PO BID 12/29/18 [History] diphenhydrAMINE [Benadryl] 50 mg PO HS PRN 28 Days cap 01/03/19 [Rx] Aspirin EC [Ecotrin Low Dose] 81 mg PO DAILY 08/05/19 [History] Chlorthalidone 25 mg PO DAILY 08/05/19 [History] Divalproex ER [Depakote ER] 500 mg PO BID 08/05/19 [History] Acetaminophen Tab [Tylenol] 650 mg PO Q4HR PRN tab 09/03/19 [Rx] Amiodarone [Cordarone] 400 mg PO BID tab 09/03/19 [Rx] Bisacodyl [Dulcolax] 5 mg PO DAILY PRN tablet. 09/03/19 [Rx] Furosemide [Lasix] 40 mg PO BID #60 tablet 09/03/19 [Rx] Heparin Sodium,Porcine [Heparin Sodium] 5,000 unit SQ Q8HR vial 09/03/19 [Rx] Ipratropium-Albuterol Nebulize [Duoneb 0.5 mg-3 mg/3 ml Soln] 3 ml INHALATION RT-Q4H PRN ml 09/03/19 [Rx] Ipratropium-Albuterol Nebulize [Duoneb 0.5 mg-3 mg/3 ml Soln] 3 ml INHALATION RT-QID ml 09/03/19 [Rx] Linezolid [Zyvox] 600 mg PO BID 7 Days #14 tab 09/03/19 [Rx] Magnesium Hydroxide [Milk of Magnesia Concentrate] 2,400 mg PO BID PRN ml 09/03/19 [Rx] Metoprolol Tartrate [Lopressor] 50 mg PO TID tab 09/03/19 [Rx] Moxifloxacin HCl [Avelox] 400 mg PO DAILY 7 Days #7 tablet 09/03/19 [Rx] Pantoprazole [Protonix] 40 mg PO AC-BRKFST 20 Days #20 tablet. 09/03/19 [Rx] oxyCODONE-APAP 5-325MG [Percocet 5-325 mg] 1 each PO BID PRN 4 Days #2 tab 09/03/19 [Rx] Follow up Appointment(s)/Referral(s): None,Stated [Primary Care Provider] - 1-2 days Kamilla So MD [STAFF PHYSICIAN] - 09/24/19 9:30 am Discharge Disposition: TRANSFER TO SNF/ECF
[2019-09-03] MEDS: IPRATROPIUM-ALBUTEROL 3 ML NEB INHALATION SCH ×2 (08:58→12:06)
[2019-09-03 09:44] VITALS: BP 184/92; RESP 20; TEMP 97.6
[2019-09-03 10:36] LABS: Calcium 8.3 mg/dL (8.4-10.2); Magnesium 1.8 mg/dL (1.6-2.3); Potassium 3.7 mmol/L (3.5-5.1)
[2019-09-03 12:08] VITALS: PULSE 64
--- NOTE | 2019-09-03 13:12 | P.PN ---
Subjective Progress Note Date: 09/03/19 Principal diagnosis: Acute hypoxic and hypercapnic respiratory failure second to aspiration pneumonia 62-year-old male patient who was brought into the emergency department today unresponsive and profoundly hypoxic. The patient was in acute hypoxic respiratory failure. Initial pulse ox was in the mid 30s. Apparently he was not also communicating or responding. He was apparently awake and alert on the morning prior to him coming to the hospital according to the landlord. The landlord noted that the patient was appearing ill and called EMS. Upon EMS arrival, the patient was found to be obtunded. He had a fever of 10 1F. He was found to be hypoxic, brought into the emergency room he was found to be tachycardic and hypoxic with was placed on supplemental oxygen without any benefit and ultimately the patient was intubated and placed on a mechanical ventilator. COVID 19 is suspected. The patient was placed on the opposite isolation. The patient had the appropriate nasal swabs. Chest x-ray showed bilateral airspace disease consistent with pneumonia in addition to interstitial pneumonitis. ET tube was around 3.7 cm above the mario. NG tube was extending into the left abdomen. There was a right upper lobe consolidation noted and a tiny right-sided pleural effusion. No evidence of any pneumothorax. There was bilateral infiltrates and coarse interstitium and a prosthetic left shoulder. The patient has a white cell count of 4.9. He had some lymphopenia. His platelet counts is no within normal limits. The blood gases was done on 100% nonrebreather showed a pH of 7.17 with a pCO2 of 66 and pO2 of 45. The patient also had an acute kidney injury with a creatinine of 1.65. Epigastric level was at 3.1. The ALT is at 1106 with an ammonia level of 146 and a bilirubin of 0.5 and an albumin of 4.1. The serum alcohol was negative and the patient has negative salicylates and acetaminophen. Influenza screen has been negative. Covid 19 analysis still pending for now. This patient lives with a sister in a house and he collects Social Security disability. He has had issues with mental health and the patient has been dealing with bipolar disorder and chronic insomnia of many years duration. He has also chronic anxiety disorder. No history of any previous suicidal ideation or intent. No delusions or hallucinations based on recent psychiatric evaluation that was in the hospital. On today's evaluation of 62,020 the patient is being seen in follow-up in the intensive care unit. Noted the patient is intubated on a mechanical ventilator and is suspected to have Covid 19. He is afebrile on today's evaluation. He remains on a mechanical ventilator. He is sedated with propofol running at 20 mg per KG per minute. He was given a total of 5 L of IV fluid as the patient was hypotensive and currently the fluid is running at 75 mL an hour of normal saline. He remains on norepinephrine infusion at 0.08 mg per KG per minute. He remains on a mechanical ventilator. His assist-control mode at the rate of 28 with a tidal volume of 450 and FiO2 of 60% with a PEEP of 15. His blood gases showed a pH of 7.12 with a pCO2 of 58 and pO2 of 187. This was done and FiO2 of 100%. Otherwise, the patient has blood abnormalities it is consistent with Covid 19 infection. He has a rhabdomyolysis with a CPK level of 6114. He has also transaminitis with a AST of 3354, ALT of 1962, and his LDH level is at 8367. His creatinine is at 1.2, which is up from a baseline of 1.65 with fluid resuscitation. His current minute ventilation is 13 L. I made recommendations to keep the same vent setting. Based on the blood on of some non-anion gap metabolic acidosis, and with recommendations to start the patient on bicarb infusion and addition to 2 A of IV bicarb pushes. He was having temperatures throughout the night with temperature maximum 100.8. Current temperature is 99.6. He'll be started on enteral feeding for nutritional support. Covid 19 evaluation is still pending for now. On today's evaluation of 08/07/2019 and seeing this patient for a follow-up. The patient has sedated with propofol. He was given a sedation holiday yesterday and his neurologic exam was suboptimal as the patient did not show adequate neurologic recovery. Based on that, a CAT scan of the brain was done and the CAT scan of the brain was negative for any acute abnormalities. Noted the patient was profoundly hypoxic and at time of admission to the hospital and there is a suspicion for hypoxic encephalopathy. Contrary to my expectations, the patient checked negative for Covid 19 infection. The blood culture came back positive for staph aureus. Currently is on a combination of cefepime and vancomycin. The patient was resuscitated with more than 5 L of normal saline and the patient is also requiring some pressors for hemodynamic support and levo fed was started and 8 on was placed on hold as of 5:00 this morning. Urine output in the order of 40 mL an hour. In terms of sedation, the patient is on propofol at 20 g per KG per minute. Note that the patient had issues with a significant leak around his orotracheal tube. This was replaced yesterday by [employer] without any major difficulties. This morning, he remains on a VC plus mode with a rate of 28 and a tidal volume of 450 and a nighttime of 1 second with a PEEP of 15 with an FiO2 of 50%. Blood gases from today showed a pH of 7.36 with a pCO2 of 37 and pO2 of 92. Chest x-ray showing diffuse bilateral pulmonary infiltrates. His cardiac rhythm is still in atrial fibrillation. He is on amiodarone maintenance at 0.5 mg per minute. The patient has a creatinine of 1.5. There is still evidence of transaminitis with elevation of the AST and ALP and both are improving. LDH level is elevated at 5738. CPKs improving at 2431. C-reactive protein is elevated at 622. Note that the LDH is on the decline, CPKs on the decline on today's evaluation. LFTs are also improving. On 08/08/2019 on seeing this patient for a follow-up. The patient has been off sedation since yesterday. I am not seeing an adequate neurologic recovery in this patient. There may be a component of hepatic encephalopathy in the patient's went into shock liver. Nevertheless, his ammonia is dropping. He is on lactulose. He is producing adequate amount of bowel activity. He is undergoing training the painful stimulation. Pupils are about 3 mm in size and there is C-reactive to light. There is a very weak cough and a gag. Absolutely no response to deep painful stimulation. No seizure activity has been noted. Neurology will be consulted on the case. EEG will be ordered. Meanwhile, the patient is clearly becoming a case of possible aspiration staphylococcal pneumonia. His blood culture came back positive for staph aureus. His sputum positive for staph. He also has gram-negative bacillus in his sputum which axle turner to be E. coli. For now, the cultures and the blood to be MSSA. The patient was on examination of cefepime and vancomycin. I dropped the cefepime and I u tilized Zosyn to give him better anaerobic coverage as the patient clearly has a history of aspiration. Meanwhile, the Covid test came back negative. The patient remains on a mechanical ventilator. On today's chest x-ray there is worsening over the bilateral pulmonary infiltrates worse on the right. ET tube remains in a good location. The patient remains on an assist-control mode at the rate of 18 with a tidal volume of 450 and FiO2 of 50% with a PEEP of 10. Blood gas showed a pH of 7.46 with a pCO2 of 34 and pO2 of 103. CVP is ranging between 12 and 14. He remains in atrial fibrillation. He is on amiodarone drip maintenance at 0.5 mg per minute. He is also on normal saline at the rate of 75 mL an hour. His age fibrillation is under better control and he is on no pressors. He can tolerate beta blockers. He is having low-grade fever still. The white cell count is up to 22. The shock liver is improving including the AST and ALP level. The LDH level was elevated. The CPKs also improving is down to 2431. His ammonia level is down to 85. His coagulation profile is within normal limits. On 08/09/2019 the patient is being seen in follow-up in intensive care unit. Unfortunately, the patient has been off sedation for more than 24 hours and the patient is still not showing significant neurologic recovery. The patient is not following any specific commands. In fact he is not even withdrawing to deep painful stimulation. No seizure activity has been noted. EEG was done and showed diffuse slowing and it was consistent with severe encephalopathy which could be toxic metabolic encephalopathy versus hypoxic encephalopathy. The patient will be kept off sedation. Meanwhile, the ammonia level is progressively coming down and is down to 58. He continues to have a week cough and gag reflex. The patient remains in atrial fibrillation. The patient remained on assist control mode of ventilation. He is on VC plus mode at the rate of 28 with a tidal volume of 450 and FiO2 of 50% with a PEEP of 10. The blood gases from today shows a component of respiratory alkalosis with a pH of 7.5 with a pCO2 of 36 and pO2 of 71. The white cell count of 23. The patient has developed some hyperchloremic hypernatremia in the sodium level is up to 147 with a chloride of 114. Renal function is stable. The patient is receiving vital high protein at the rate of 52 mL an hour. In terms of atrial fibrillation, I had utilized back the amiodarone drip at 0.5 mg per minute and the patient is also on metoprolol 50 mg by mouth 3 times a day. Heart rate is still slightly tachycardic and will continue the same regimen for now. The patient was given a dose of Lasix yesterday. The patient Is producing better urine output for now. His weight is still up. The CPKs down to 395. The AST is down to 1000. ALT is down to 58. LDH is down to 03/10/2007. Calcium level at 7.1. No other significant issues otherwise over the past 24 hours. He remains on a combination of Zosyn and vancomycin. The blood culture and the sputum culture was positive for MSSA. The sputum culture was positive for E. coli. The chest x-ray still showing rather consolidation worse on the right compared to the left. ET tube remains in a good location. On 08/10/2019 the patient has been approximately 72 hours of sedation. Unfortunately, we do not see any significant neurologic recovery the patient's condition. He is still not responding to any verbal or deep painful stimulation. He remains completely unresponsive. On this morning, I have a mild assist-control mode of ventilation with a VC plus mode at a tidal volume of 450 FiO2 of 50% with a PEEP of 10 and the respiratory rate of 24. His blood gases showed a component of respiratory alkalosis. His pH is at 7.53 with a pC O2 of 39 pO2 of 63. Chest x-ray still showing bilateral pneumonia bilateral airspace disease worse on the right along with cardiomegaly and bilateral pleural effusions. ET tube is in a good location. The patient's white cell count is at 27. The patient is still having episodes of fever. Most recent blood culture from 2 days ago was positive for MSSA and MSSA was also cultured and his lungs and it was cultured also E. coli in his lungs. We are still thinking that this was an aspiration pneumonia. Shock liver, his LFTs are nearly normalized, severe has also dropped and ammonia level is being monitored is still elevated at 83. The lactulose was held as the patient was having liquidy stool and the patient had become also hyperchloremic and the sodium level is up to 149. He is receiving free water supplements with NG for now. He is also on vital high protein. In terms of his atrial fibrillation, rate is under better control with a combination of amiodarone maintenance of 0.5 mg per minute and Cardizem drip at 10 mg an hour. The patient is also on IV heparin. The active issue for now is his altered mentation. On 08/11/2019, I'm seeing the patient for a follow-up in intensive care unit. His been off sedation for the past 92 hours. On today's evaluation that is some slight grimacing upon very deep painful stimulation and upon pinching on his upper chest. For the most part he remains unresponsive. No seizure activity. Shock liver has recovered. Ammonia level is on the decline. I started the patient on rifixamine 550 mg by mouth twice a day yesterday and ammonia level is down to 45. I suspect a component of hypoxic encephalopathy although the possibility of metabolic encephalopathy cannot be completely ruled out. He is on a mechanical ventilator. No change in the vent setting. No changes in the x-ray findings as the patient has extensive airspace disease bilaterally more so on the right lower lobe. On the ventilator, the patient is on a VC plus mode with a tidal volume of 450 and FiO2 of 50% with a PEEP of 10 and tidal volume of 450 with a rate of 16. The patient's blood gas showed a pH of 7.52 with a pCO2 of 39 and pO2 of 67. On and off he was still having fever yesterday. Repeat blood cultures were sent. He remains on examination Zosyn and vancomycin. He is tolerating his enteral feeding for nutritional support. Is on IV heparin drip regarding his atrial fibrillation. He remains on amiodarone drip and oral metoprolol for rate control. He is also started on Cleviprex which is running at 2 mg an hour for tighter blood pressure control. The active issue remains his altered mentation with a possibility of him having hypoxic encephalopathy with the details as mentioned above. Patient was reevaluated today on 08/12/19, remains on mechanical ventilation, his ventilator settings are assist control rate 16 volume control plus at 450 FiO2 at 50% and PEEP of 10. ABG showed a pO2 of 79 pCO2 of 39 pH of 7.52. Chest x- ray continues to show bilateral pleural effusions, and by basilar space disease, hence I recommended ultrasound to evaluate for possible thoracentesis if the effusion isn't large enough to be drained. However the ultrasound showed minimal pleural effusions bilaterally, insufficient for thoracentesis. Patient remains on Zosyn and vancomycin, and he hasn't MSSA bacteremia, sputum is positive for E. coli and staph aureus. Neurologically the patient is about the same, however the only change noted today is the fact that the patient tries to open his eyes and grimacing upon deep painful stimuli. Remains off narcotics and sedatives. WBC count is up to 25.3 today slightly improved compared to yesterday. Basic metabolic profile is basically normal and his BUN is improving down to 38 creatinine is 0.55. Liver enzymes are steadily improving. Ammonia is 60 today. It was as high as 146 about a week ago remains on rifaximin. Reevaluated today on, patient remains in the ICU, intubated and mechani raul ventilated. Yesterday the patient had significant agitation and he had to be placed back on propofol. This morning the propofol was discontinued, and the patient seems to be more responsive to stimuli/verbal stimuli patient is opening his eyes, wiggling his toes, seems to be slow but at least the best I have seen him so far. Hence I kept the propofol off, and I will give the patient a chance to go on a weaning trial if possible. He is not quite ready to start weaning but we will continue to hold propofol and address hourly today for possible placement on pressure support and CPAP. Presently the patient is on mechanical ventilation with assist control rate of 16, volume is 450 FiO2 dropped down from 60% to 50% and his PEEP was decreased to 8. His ABG this morning showed a pO2 of 124 pCO2 of 48 pH of 7.44 patient is on propofol which is presently on hold. He is on clindamycin and for his MSSA bacteremia. He is on enteral tube feeding. Chest x-ray continues to show small areas of pneumonia bilaterally, and possibly a small right sided pleural effusion not large enough to consider thoracentesis as noted on ultrasound On 08/14/2019 patient seen in follow-up, in the intensive care unit, he remains intubated, on mechanical ventilator, on assist control mode of ventilation with FiO2 of 50%. This morning blood gases showed pO2 of 112, pCO2 45, and pH of 7.48. IV 0.9 normal saline at a rate of 10 ML per hour, heparin per weight- based protocol, and Diprivan has been on hold. Patient is lethargic although she is waking up and follow commands, wiggling toes on command. Appears to be in no acute distress, today's chest x-ray has been reviewed showing diffuse pleural parenchymal changes consistent with pulmonary edema or ARDS. Patient continues on Kefzol and Clindamycin for MSSA and E. coli pneumonia and bacteremia, follow-up blood cultures have been negative. Patient has been afebrile, hemodynamically stable, not on any vasopressors, today's labs have been reviewed, leukocytosis is down trending, WBC is down to 18.7, hemoglobin is 9.7, sodium is 142, potassium is 3.3, chloride is 108, CO2 32, BUN is 37 and creatinine 0.53. Patient in sinus rhythm, he remains on oral amiodarone, and heparin infusion for anticoagulation. Diuretics with Lasix 40 mg every 12 hours On 08/19/2019 patient seen in follow-up in intensive care unit. Patient was successfully weaned and extubated on 08/16/2019, he is currently on 6 L of oxygen the pulse ox of 94%, afebrile, hemodynamically patient is stable, patient is on IV fluids 0.9 normal saline at a rate of 10 ML per hour, he is very generally weak, he can hardly move his fingers. Patient is awake, oriented to self and the place, he is following command. He denies any acute distress, lung sounds reveal scattered rhonchi bilaterally, patient is able to cough and expectorate yellowish colored phlegm at times. Physical therapy has been working with the patient however patient is extremely weak, and has only been able to sit in the chair position in bed. Upper and lower extremities are positive for 1+ edema, patient remains on daily dose of oral Lasix at 40 mg daily. He is in -150 ML fluid balance over the last 24 hours. We'll give the patient additional dose of IV Lasix 60 mg this morning, this morning patient is requiring increasing amount of oxygen, and he was placed on BiPAP with pressures of 12 and 5 and 50%. This morning's chest x-ray shows increasing diffuse bilateral airspace disease likely related to pulmonary edema with persistent moderate pleural effusions. Patient did have a bedside bronchoscopy with bronchoalveolar lavage on 08/16/2019, and Gram stain has shown no organisms. H is sputum culture from 08/05/2019 was positive for MSSA, and E. coli, and blood cultures from 08/05/2019, and 08/07/2019 were positive for MSSA. Patient is on clindamycin and For Antibiotic Coverage. He is currently in sinus rhythm, he is on Eliquis for paroxysmal atrial fibrillation and oral Cordarone. On 08/20/2019 patient seen in follow-up in intensive care unit, yesterday he required placement on BiPAP later to his increased dyspnea and hypoxia. He tolerated it well, this morning she is on 8 L per high flow nasal cannula with a pulse ox of 94-97%, mildly dyspneic with conversation, but no acute distress, BiPAP was removed at 2100 last night. Patient was given additional Lasix yester day, and he is in -1.2 L over the last 24 hours. Still has some 1+ pitting edema involving upper and lower extremities. Still is very weak, and unable to lift up his arms off the bed. Lung sounds reveal scattered rhonchi, but less congested on today's exam. he is on full liquid diet, but requires intensive assistance with ADLs including feeding. Physical therapy is on consult and is following with the patient. Low-grade fevers with a T-max 99.0F over the last 24 hours, hemodynamically stable, IV fluids included D5W at a rate of 50 MLS per hour. We will switch to 0.9 normal saline at a 20 ML per hour, patient is on oral Eliquis for paroxysmal atrial fibrillation, and currently remains in sinus rhythm. Remains on Diamox. On 08/26/2019 patient seen in intensive care unit, he is awake and alert, in no acute distress, he is oriented 3, likely on 6 L of oxygen the pulse ox of 88-92%, no worsening dyspnea, he remains weak, however stronger compared to last week. He is participating with physical therapy, still unable to feed himself, still requires extensive assistance with all ADLs including feeding bathing and toileting, afebrile. Hemodynamically patient is stable, remains in sinus mechanism. 0.9 normal saline at a rate of 20 ML per hour, antibiotic coverage in the form of cefazolin. Remains on IV Lasix at 40 mg every 8 hours, and he is in -770 ML fluid balance over the last 24 hours. Has some residual mild upper and lower extremity edema, lung sounds reveal diminished breath sounds at the bases, no rhonchi, no wheezing. Today's chest x-ray shows mild cardiomegaly with central vessel congestion and small to moderate-sized right greater than left pleural effusions. Ultrasound the chest yesterday showed a right pleural effusion of 12.0 cm pocket. On 08/27/2019 patient seen in follow-up on general medical floor, apparently he appears to be more short of breath today, quite dyspneic, and his FiO2 is up 200% per 100% nonrebreather mask. Repeat chest x-ray shows moderate to large size right pleural effusion, and persistent diffuse left lung infiltrate. Mary Beth fitzpatrick remains on IV diuretics, 40 mg every 8 hours, he is in sinus mechanism. We proceeded with right-sided thoracentesis at the bedside by Dr. So would removal of 1.4 L of turbid dark colored pleural fluid which was sent for analysis. he tolerated procedure well, he remains quite weak. On 08/28/2019 patient seen in follow-up on general medical floor, he is awake and alert, in no acute distress, currently on 12 L of oxygen per high flow nasal cannula, denies any acute distress, lung sounds reveal crackles at bilateral lower bases, patient is status post thoracentesis on the right side on 08/27/2019 with removal of 1.4 L of dark colored pleural fluid which was sent for analysis and cytology. Analysis revealed exudative fluid with high LDH and total protein of 4.1 g. Pleural fluid cultures are pending, Gram stain has shown no organisms thus far. Patient remains on diuretics at 40 mg every 8 hours. And patient has produced 4 L in the urine output in the last 24 hours, and he is in -3.3 L. Today's labs have been reviewed, showing white blood cell count of 11.4, hemoglobin of 8.7, sodium of 131, potassium is 3.4, chloride is 88, CO2 is 33, BUN of 14, creatinine 0.69. Current antibiotic coverage is with IV Zosyn. On 08/29/2019 patient is seen in follow-up on general medical floor. He is awake and alert, he is resting in bed, still requiring 12 L of oxygen and the pu lse ox is only 90-91%, patient has been receiving physiotherapy, he is on breathing treatments, he remains on IV diuretics at 40 mg every 12 hours. His chest x-ray has been reviewed showing increasingly diffuse infiltrate throughout the left lung and moderate right pleural fluid likely loculated. Patient remains on Zosyn for antibiotic coverage. Patient is status post right-sided thoracentesis in cytology was negative for diagnostic features of neoplasm. Pleural fluid with exudative in nature, cultures are pending, Gram stain has shown no growth at the 48 hour yovanny. he remains weak and debilitated, he was able to sit up with extensive assistance yesterday in the chair, he is improving, however still has significant weakness On 09/02/2019 patient seen in follow-up on the [facility] medical floor, he is awake and alert, FiO2 is down to 4 L per nasal cannula, his pulse ox is 97%, he is looking and feeling significantly better compared to last week, sitting up in the recliner, breathing is comfortable, no significant cough or congestion, no fever or chills, he remains on Lasix at 40 mg every 12 hours, breathing treatments, and antibiotics with a combination of Zosyn and Zyvox. ID service is following, no reports of hemoptysis, no chest pain. No worsening dyspnea. Patient is using a urinal, he is in -2.7 L over last 24 hours. Lung sounds revealed diminished breath sounds at the bases with some limited crackles. Today's labs show sodium level of 1:30, potassium 3.5, chloride is 87, CO2 is 36, BUN is 19 creatinine 0.9. Patient is status post ultrasound-guided right thoracentesis by interventional radiology with removal of 0.3 L of serous fluid. On 09/03/2019 patient seen in follow-up on [facility] floor, he remains on 4 L of oxygen and his pulse ox is 95-96%, no worsening dyspnea, hemodynamically stable, no fever or chills, lung sounds reveal coarse crackles at bilateral bases, patient is getting stronger every day, participating with therapy, he remains on IV diuretics at 40 mg every 12 hours, he is in -1.25 L over last 24 hours, breathing easier, working on incentive spirometer. Today's labs have been reviewed, no CBC was done, BMP showed sodium of 1:30, potassium of 3.7, chloride is 87, CO2 34, EOMs 23 and creatinine of 1.25. Tolerating oral diet. Remains on Zyvox and Zosyn for antibiotic coverage for MSSA pneumonia, and MSSA bacteremia. Sputum culture back on 08/05/2019 oh she'll showed evidence of E. coli Objective - Vital Signs Vital signs: Vital Signs Temp 97.6 F 09/03/19 07:15 Pulse 64 09/03/19 12:20 Resp 20 09/03/19 07:15 BP 184/92 09/03/19 07:15 Pulse Ox 96 09/03/19 07:15 Intake & Output 09/02/19 09/03/19 09/03/19 18:59 06:59 18:59 Intake Total 100 400 Output Total 1050 700 Balance -950 -300 Weight 86.5 kg 90 kg Intake: Intake, IV Titration 100 Amount Piperacillin-Tazobactam 3 100 .375 gm In Sodium Chloride 0.9% 100 ml @ 25 mls/hr IVPB Q8HR [facility] Rx# :[id number] Oral 400 Output: Urine 1050 700 Other: # Voids 3 # Bowel Movements 1 ABP, PAP, CO, CI - Last Documented Arterial Blood Pressure 151/56 - Exam GENERAL EXAM: Awake and alert, oriented to self and place 64-year-old white male, on 4 L per high flow nasal cannula 97%, patient is answering questions appropriately, he is oriented 3, he sitting up in a recliner, appears much stronger compared last week HEAD: Normocephalic/atraumatic. EYES: Normal reaction of pupils, equal size. Conjunctiva pink, sclera white. NOSE: Clear with pink turbinates. THROAT: No erythema or exudates. NECK: No masses, no JVD, no thyroid enlargement, no adenopathy. CHEST: No chest wall deformity. Symmetrical expansion. LUNGS: Equal air entry with bibasilar crackles CVS: Regular rate and rhythm, normal S1 and S2, no gallops, no murmurs, no rubs ABDOMEN: Soft, nontender. No hepatosplenomegaly, normal bowel sounds, no guarding or rigidity. EXTREMITIES: No clubbing, no edema, no cyanosis, 2+ pulses and upper and lower extremities. MUSCULOSKELETAL: Muscle strength and tone normal. SPINE: No scoliosis or deformity SKIN: No rashes CENTRAL NERVOUS SYSTEM: Awake and alert, generally weak, 64-year-old white male, on 12 L of oxygen. No focal deficits, tone is normal in all 4 extremities. - Labs CBC & Chem 7: 09/01/19 07:05 09/03/19 09:54 Labs: Abnormal Lab Results - Last 24 Hours (Table) 09/03/19 Range/Units 09:54 Sodium 130 L (137-145) mmol/L Chloride 87 L (98-107) mmol/L Carbon Dioxide 34 H (22-30) mmol/L BUN 23 H (9-20) mg/dL Glucose 119 H (74-99) mg/dL Calcium 8.3 L (8.4-10.2) mg/dL Microbiology - Last 24 Hours (Table) 08/16/19 09:27 Acid Fast Bacilli Smear - Final Bronchial Washings - Random Acid Fast Bacilli Culture - Preliminary 08/27/19 11:05 Blood Culture - Final Blood No Growth after 144 hours Assessment and Plan Plan: Assessment: #1. Acute hypoxic and hypercapnic respiratory failure related to MSSA and E. coli pneumonia and sepsis, requiring intubation and mechanical ventilator support, successfully weaned and extubated on 08/16/2019. Patient had bronchoscopy with BAL on 08/16/2019 and so far the blood cultures are negative #2. Bilateral pleural effusions, status post right-sided thoracentesis today on 08/27/2019 would removal of 1.4 L of turbid dark colored pleural fluid which was sent for analysis, which showed exudative fluid, cytology is negative, cultures pending, Gram stain showed no organisms. Repeat thoracentesis on the right side was done with ultrasound guidance by interventional radiology on 08/30/2019 would removal of 300 mL of pleural fluid which was discarded #3. MSSA bacteremia likely related to MSSA pneumonia. Follow blood culture showed no growth #4. Acute kidney injury, improving. Secondary to acute sepsis. #5. Acute sepsis, and acute lactic acidosis on presentation, improved #6. Chronic psychiatric disorder/bipolar disorder. #7. Dyslipidemia. #8. Benign essential hypertension. #9. Shock liver, improved . #10. Acute rhabdomyolysis, resolved #11. Pulmonary hypertension. #12. Staph aureus septicemia, MSSA. #13. Hyperchloremic hypernatremia secondary to diarrhea and intravascular volume depletion. Improved with D5W. #14. Acute hepatic/metabolic encephalopathy, improved #15. Severe generalized weakness #16. Hypernatremia likely related to free water deficit, improved #17. Hyponatremia, likely related to D5W infusion, overcorrected hypernatremia, we'll restrict oral fluids Plan: She remains stable, continue weaning FiO2, increase activity as tolerated, he is maintaining negative fluid balance, his been afebrile, remains on Zyvox and Zosyn for recent history of MSSA pneumonia and MSSA bacteremia, follow blood cultures have been negative, no worsening dyspnea. Encourage deep breathing and coughing. Patient was supposed to go to a rehab facility in [place] however we're told that the facility is now full and there are no beds available, [employer] is on consultation, and were awaiting arrangements for placement I performed a history & physical examination of the patient and discussed their management with my nurse practitioner, Radha Silva. I reviewed the nurse practitioner's note and agree with the documented findings and plan of care. Lung sounds are positive for diminished breath sounds. The findings and the impression was discussed with the patient. I attest to the documentation by the nurse practitioner. Time with Patient: Less than 30
--- NOTE | 2019-09-03 14:18 | PN ---
PROGRESS NOTE DATE OF SERVICE: 09/03/2019 REASON FOR FOLLOW UP: Nosocomial pneumonia. INTERVAL HISTORY: Patient is currently afebrile. The patient is breathing comfortably. Denies having any chest pain. Occasional cough. No nausea, vomiting. No abdominal pain or diarrhea. On examination, blood pressure 104/92 with a pulse of 71, temperature 97.6. He is 96% on 4 L nasal cannula. General description is a middle-aged male lying in bed in no distress. Respiratory system: Unlabored breathing, decreased breath sounds at the base. No wheeze. Heart S1, S2. Regular rate and rhythm. Abdomen soft, no tenderness. LABS: No new labs have been obtained today. DIAGNOSTIC IMPRESSION AND PLAN: Patient with nosocomial pneumonia, overall clinical improvement. Finish therapy with oral Zyvox and Avelox for about a week and close outpatient followup. MMODL / IJN: [id number] /
--- NOTE | 2019-09-04 15:43 | CDI ---
Documentation Clarification Form Date: 09/05/19 From: Raven Healy Phone: If you have a question about this query, please contact Debby Munoz, Seasonal Package Handler at [phone] between 8am and 5pm. Admit Date:08/05/19 Discharge Date: 09/03/19 Patient Name: ALYSSIA MURRAY Visit Number: [id number] ATTENTION: The Clinical Documentation Specialists (CDI) and [facility] Coding Staff appreciate your assistance in clarifying documentation. Please respond to the clarification below the line at the bottom and electronically sign. The CDI & [facility] Coding staff will review the response and follow-up if needed. Please note: Queries are made part of the Legal Health Record. If you have any questions, please contact the author of this message via ITS. Dear Dr. Chapman Sheet, Patient presented with troponin of: 0.444, <0.012 Patient history/risk factors: sepsis, acute hypoxic & hypercapnia respiratory failure, ATN, severe sepsis w septic shock, MSSA PNA, hypoxic, anoxic and toxic encephalopathy, shock liver, Clinical indicators: Per 08/05 PN the troponin leak secondary to myocardial injury from sepsis In your professional opinion, can you please specify the diagnosis, if any, indicated by the above clinical indicators and treatment? Type II Myocardial infarction NSTEMI Other, please specify Unable to determine Type II Myocardial infarction, demand/supply mismatch MTDD
--- NOTE | 2019-09-04 15:49 | CDI ---
Documentation Clarification Form Date: 09/05/19 From: Raven Healy Phone: If you have a question about this query, please contact Debby Munoz, Novelty Printing Machine Operator at [phone] between 8am and 5pm. Admit Date:08/05/19 Discharge Date: 09/03/19 Patient Name: ALYSSIA MURRAY Visit Number: [id number] ATTENTION: The Clinical Documentation Specialists (CDI) and [facility] Coding Staff appreciate your assistance in clarifying documentation. Please respond to the clarification below the line at the bottom and electronically sign. The CDI & [facility] Coding staff will review the response and follow-up if needed. Please note: Queries are made part of the Legal Health Record. If you have any questions, please contact the author of this message via ITS. Dear Dr. Chapman Sheet, Documentation states: PN 08/26 states magnesium was low at 1.4, recheck. History/Risk Factors: sepsis, acute hypoxic & hypercapnia respiratory failure, ATN, severe sepsis w septic shock, MSSA PNA, hypoxic, anoxic and toxic encephalopathy, shock liver, Clinical indicators: 08/04-09/02 Magnesium: 2.2, 1.9, 2.5, 1.4, 1.5, 1.2, 1.8, 1.6, 1.5, 1.5, 1.8 Treatment: Replace magnesium Clinical significance of diagnostic testing and treatment CANNOT be assumed or coded without physician documentation of significance if any. Please clarify what abnormal laboratory signifies: Hypermagnesemia Hypomagnesemia Unable to determine Other, please specify Hypomagnesemia MTDD
== END 2019-09-03 15:36 | DRG 870 ==
LOC: EC 10:41 → 2SICU 13:46 → 4SSUR 08-26 11:55
PROVIDERS: ADMIT Internal Medicine; ATTEND Internal Medicine
PROC: 5A1955Z Respiratory Ventilation, Greater than 96 Consecutive Hours (ICD-10-PCS; principal; 2019-08-05)
PROC: 4A133J1 Monitoring of Arterial Pulse, Peripheral, Percutaneous Approach (ICD-10-PCS; principal; 2019-08-05)
PROC: 03HY32Z Insertion of Monitoring Device into Upper Artery, Percutaneous Approach (ICD-10-PCS; principal; 2019-08-05)
PROC: 4A133B1 Monitoring of Arterial Pressure, Peripheral, Percutaneous Approach (ICD-10-PCS; principal; 2019-08-05)
PROC: 0D9670Z Drainage of Stomach with Drainage Device, Via Natural or Artificial Opening (ICD-10-PCS; principal; 2019-08-05)
PROC: 02HV33Z Insertion of Infusion Device into Superior Vena Cava, Percutaneous Approach (ICD-10-PCS; principal; 2019-08-05)
PROC: 0BH18EZ Insertion of Endotracheal Airway into Trachea, Via Natural or Artificial Opening Endoscopic (ICD-10-PCS; 2019-08-05)
PROC: 3E043XZ Introduction of Vasopressor into Central Vein, Percutaneous Approach (ICD-10-PCS; 2019-08-05)
PROC: 3E0G76Z Introduction of Nutritional Substance into Upper GI, Via Natural or Artificial Opening (ICD-10-PCS; 2019-08-06)
PROC: 0B9G8ZX Drainage of Left Upper Lung Lobe, Via Natural or Artificial Opening Endoscopic, Diagnostic (ICD-10-PCS; 2019-08-16)
PROC: 0B9D8ZX Drainage of Right Middle Lung Lobe, Via Natural or Artificial Opening Endoscopic, Diagnostic (ICD-10-PCS; 2019-08-16)
PROC: 0B9J8ZX Drainage of Left Lower Lung Lobe, Via Natural or Artificial Opening Endoscopic, Diagnostic (ICD-10-PCS; 2019-08-16)
PROC: 0B9F8ZX Drainage of Right Lower Lung Lobe, Via Natural or Artificial Opening Endoscopic, Diagnostic (ICD-10-PCS; 2019-08-16)
PROC: 0B9C8ZX Drainage of Right Upper Lung Lobe, Via Natural or Artificial Opening Endoscopic, Diagnostic (ICD-10-PCS; 2019-08-16)
PROC: 5A09457 Assistance with Respiratory Ventilation, 24-96 Consecutive Hours, Continuous Positive Airway Pressure (ICD-10-PCS; 2019-08-19)
PROC: 0W993ZX Drainage of Right Pleural Cavity, Percutaneous Approach, Diagnostic (ICD-10-PCS; 2019-08-27)
DX: A41.01 Sepsis due to Methicillin susceptible Staphylococcus aureus (principal); J96.01 Acute respiratory failure with hypoxia; J96.02 Acute respiratory failure with hypercapnia; N17.0 Acute kidney failure with tubular necrosis; K72.00 Acute and subacute hepatic failure without coma; G92 Toxic encephalopathy; J69.0 Pneumonitis due to inhalation of food and vomit; R65.21 Severe sepsis with septic shock; J15.211 Pneumonia due to Methicillin susceptible Staphylococcus aureus; I21.A1 Myocardial infarction type 2; I50.31 Acute diastolic (congestive) heart failure; J15.5 Pneumonia due to Escherichia coli; G62.81 Critical illness polyneuropathy; J90 Pleural effusion, not elsewhere classified; J44.0 Chronic obstructive pulmonary disease with (acute) lower respiratory infection; J44.1 Chronic obstructive pulmonary disease with (acute) exacerbation; G93.1 Anoxic brain damage, not elsewhere classified; Z99.11 Dependence on respirator [ventilator] status; M62.82 Rhabdomyolysis; G72.81 Critical illness myopathy; E87.4 Mixed disorder of acid-base balance; E87.0 Hyperosmolality and hypernatremia; E87.1 Hypo-osmolality and hyponatremia; A41.51 Sepsis due to Escherichia coli [E. coli]; J84.89 Other specified interstitial pulmonary diseases; I27.20 Pulmonary hypertension, unspecified; I11.0 Hypertensive heart disease with heart failure; I48.0 Paroxysmal atrial fibrillation; F31.9 Bipolar disorder, unspecified; Z20.828 Contact with and (suspected) exposure to other viral communicable diseases; E87.8 Other disorders of electrolyte and fluid balance, not elsewhere classified; E87.5 Hyperkalemia; E83.42 Hypomagnesemia; E86.9 Volume depletion, unspecified; F51.04 Psychophysiologic insomnia; D72.810 Lymphocytopenia; E78.5 Hyperlipidemia, unspecified; R63.3 Feeding difficulties; K59.00 Constipation, unspecified; Y95 Nosocomial condition; R07.81 Pleurodynia; R19.7 Diarrhea, unspecified; F90.9 Attention-deficit hyperactivity disorder, unspecified type; F41.9 Anxiety disorder, unspecified; M19.90 Unspecified osteoarthritis, unspecified site; F17.211 Nicotine dependence, cigarettes, in remission; F17.220 Nicotine dependence, chewing tobacco, uncomplicated; Z71.6 Tobacco abuse counseling; Z79.82 Long term (current) use of aspirin; Z79.899 Other long term (current) drug therapy; Z86.19 Personal history of other infectious and parasitic diseases; Z90.49 Acquired absence of other specified parts of digestive tract; Z87.19 Personal history of other diseases of the digestive system; Z90.89 Acquired absence of other organs; Z98.890 Other specified postprocedural states; Z96.612 Presence of left artificial shoulder joint; Z96.652 Presence of left artificial knee joint; Z87.39 Personal history of other diseases of the musculoskeletal system and connective tissue; Z88.8 Allergy status to other drugs, medicaments and biological substances; Z80.9 Family history of malignant neoplasm, unspecified
CPT/HCPCS: 31500; 31624; 32555; 36415; 36600; 70450; 71045; 71250; 76604; 76700; 80048; 80053; 80074; 80076; 80164; 80202; 80320; 80329; 81001; 82140; 82550; 82728; 82805; 82945; 83520; 83605; 83615; 83735; 83930; 84132; 84145; 84157; 84450; 84460; 84484; 85025; 85027; 85379; 85610; 85730; 86140; 86850; 86900; 86901; 87040; 87070; 87077; 87086; 87102; 87116; 87186; 87205; 87206; 87252; 87324; 87496; 87498; 87502; 87529; 87634; 87798; 88108; 88305; 89050; 93306; 94002; 94003; 94640; 94660; 94667; 94760; 95816; 96365; 96366; 99291; 99292

== ENCOUNTER → 2019-10-31 | Outpatient (CLI) | payer MEDICARE, OTHER ==
--- NOTE | 2019-10-31 11:42 | CT ---
EXAMINATION TYPE: CT angio chest DATE OF EXAM: 10/31/2019 COMPARISON: Prior chest CT August 28, 2019. HISTORY: chest pain, elevated d-dimer CT DLP: 423 mGycm. Automated Exposure Control for Dose Reduction was Utilized. CONTRAST: CTA scan of the thorax is performed with IV Contrast, patient injected with 100 mL of Isovue 370, pul monary embolism protocol. MIP Images are created on CT scanner and reviewed. FINDINGS: LUNGS: Trace right pleural fluid or effusion remains present. No significant left-sided effusion. Mar ked interval improvement from prior CT. Probably [id number] bibasilar linear scarring and/or atelectasis on current study. Some areas slightly thickened or nodular in appearance for reference me dial left lung base 10 mm area noted axial image 119. Findings still favor resolving inflammatory or infectious process but should be followed. Background mild to moderate underlying emphysematous sexton e is present. No new areas of consolidation or groundglass opacity in the upper and midlungs. Marked interval improvement noted. No pneumothorax bilaterally. MEDIASTINUM: There is slightly suboptimal study with near equal contrast in right and left heart syst ems but there is no CT evidence for pulmonary embolism. There are prominent borderline enlarged bila teral hilar lymph nodes . No cardiomegaly or pericardial effusion is seen. Coronary artery calcific ation is redemonstrated which is noted marked underlying coronary artery disease. OTHER: S-shaped scoliosis in the spine with multilevel spurring. Metallic hardware from left shoulder surgery is partially imaged similar to prior. IMPRESSION: 1. Slightly suboptimal study but no CT evidence for acute pulmonary embolism. 2. Marked interval improvement from prior CT. Tiny residual right pleural effusion. Twqnyxcj-[id number] e bibasilar linear scarring and/or atelectasis remains present. No new suspicious focal infiltrate.
== END | disposition home or self-care (01) ==
LOC: RADCTMAIN 10:56
PROVIDERS: ATTEND Family Medicine
DX: J90 Pleural effusion, not elsewhere classified (principal)
CPT/HCPCS: 71275; Q9967

== ENCOUNTER 2019-12-22 18:31 | Emergency (ER) | payer MEDICARE, OTHER ==
[2019-12-22] MEDS ORDERED: SODIUM CHLORIDE 0.9% 500 ML 500 ML IV STA (18:37)
[2019-12-22] MEDS ORDERED: NALOXONE 0.4 MG/ML 1 ML VIAL IV STA (18:37)
--- NOTE | 2019-12-22 18:38 | ED ---
Overdose HPI - General Stated Complaint: Pill ingestion & knee pain Time Seen by Provider: 12/22/19 18:34 Source: RN notes reviewed, old records reviewed Limitations: no limitations - History of Present Illness MD Complaint: intentional overdose -: hour(s) Intent: unwilling to say How Overdose Was Discovered: family/friend present at time Context: Intentional Overdose: started new med recently Context: Accidental Overdose: medication error, uncertain what happened Treatments Prior to Arrival: none - Related Data Home Medications Medication Instructions Recorded Confirmed Rosuvastatin Calcium [Crestor] 5 mg PO HS 06/02/17 08/05/19 Fenofibrate Nanocrystallized 145 mg PO DAILY 10/30/17 08/05/19 [Fenofibrate] Albuterol Sulfate [Ventolin HFA] 1 - 2 puff INHALATION RT-Q6H PRN 12/29/18 08/05/19 Vascepa 1gm 2 gm PO BID 12/29/18 08/05/19 Aspirin EC [Ecotrin Low Dose] 81 mg PO DAILY 08/05/19 08/05/19 Chlorthalidone 25 mg PO DAILY 08/05/19 08/05/19 Divalproex ER [Depakote ER] 500 mg PO BID 08/05/19 08/05/19 Previous Rx's Medication Instructions Recorded diphenhydrAMINE [Benadryl] 50 mg PO HS PRN 28 Days cap 01/03/19 Acetaminophen Tab [Tylenol] 650 mg PO Q4HR PRN tab 09/03/19 Amiodarone [Cordarone] 400 mg PO BID tab 09/03/19 Furosemide [Lasix] 40 mg PO BID #60 tablet 09/03/19 Heparin Sodium,Porcine [Heparin 5,000 unit SQ Q8HR vial 09/03/19 Sodium] Ipratropium-Albuterol Nebulize 3 ml INHALATION RT-Q4H PRN ml 09/03/19 [Duoneb 0.5 mg-3 mg/3 ml Soln] Ipratropium-Albuterol Nebulize 3 ml INHALATION RT-QID ml 09/03/19 [Duoneb 0.5 mg-3 mg/3 ml Soln] Linezolid [Zyvox] 600 mg PO BID 7 Days #14 tab 09/03/19 Magnesium Hydroxide [Milk of 2,400 mg PO BID PRN ml 09/03/19 Magnesia Concentrate] Metoprolol Tartrate [Lopressor] 50 mg PO TID tab 09/03/19 Moxifloxacin HCl [Avelox] 400 mg PO DAILY 7 Days #7 tablet 09/03/19 Pantoprazole [Protonix] 40 mg PO AC-BRKFST 20 Days #20 09/03/19 tablet. bisacodyL [Dulcolax] 5 mg PO DAILY PRN tablet. 09/03/19 oxyCODONE-APAP 5-325MG [Percocet 1 each PO BID PRN 4 Days #2 tab 09/03/19 5-325 mg] Allergies Allergy/AdvReac Type Severity Reaction Status Date / Time haloperidol [From Haldol] Allergy Anaphylaxis Verified 12/22/19 18:42 tramadol Allergy Unknown Verified 12/22/19 18:42 vancomycin Allergy Rash/Hives Verified 12/22/19 18:43 Review of Systems ROS Statement: Those systems with pertinent positive or pertinent negative responses have been documented in the HPI. ROS Other: All systems not noted in ROS Statement are negative. Past Medical History Past Medical History: COPD, Hyperlipidemia, Hypertension, Osteoarthritis (OA), Pneumonia Additional Past Medical History / Comment(s): History of bipolar disorder, anxiety disorder, history of infection of the left shoulder and the patient has a total left shoulder replacement History of Any Multi-Drug Resistant Organisms: None Reported Past Surgical History: Appendectomy, Joint Replacement, Orthopedic Surgery, Tonsillectomy Additional Past Surgical History / Comment(s): finger surgery, LEFT SHOULDER REPLACEMENT , IMPLANT REMOVED FROM LEFT SHOLDER, LEFT SHOULDER REPLACEMENT, TOTAL LEFT KNEE, REPAIR OF LEFT KNEE, Past Anesthesia/Blood Transfusion Reactions: Motion Sickness Past Psychological History: ADD/ADHD, Anxiety, Bipolar Past Alcohol Use History: None Reported Additional Past Alcohol Use History / Comment(s): STARTED SMOKING AT AGE 17 - SMOKED 1 PPD (TRYING TO QUIT ) pt quit smoking 6 months ago, chews every day now Past Drug Use History: None Reported - Past Family History Sister(s) Family Medical History: Cancer General Exam General appearance: alert, in no apparent distress, lethargic Head exam: Present: atraumatic, normocephalic, normal inspection Eye exam: Present: normal appearance, PERRL, EOMI. Absent: scleral icterus, conjunctival injection, periorbital swelling ENT exam: Present: normal exam, mucous membranes moist Neck exam: Present: normal inspection. Absent: tenderness, meningismus, lymphadenopathy Respiratory exam: Present: normal lung sounds bilaterally. Absent: respiratory distress, wheezes, rales, rhonchi, stridor Cardiovascular Exam: Present: regular rate, normal rhythm, normal heart sounds. Absent: systolic murmur, diastolic murmur, rubs, gallop, clicks GI/Abdominal exam: Present: soft, normal bowel sounds. Absent: distended, tenderness, guarding, rebound, rigid Extremities exam: Present: normal inspection, full ROM, normal capillary refill. Absent: tenderness, pedal edema, joint swelling, calf tenderness Back exam: Present: normal inspection Neurological exam: Present: alert, oriented X3, CN II-XII intact Psychiatric exam: Present: normal affect, normal mood Skin exam: Present: warm, dry, intact, normal color. Absent: rash Course Vital Signs 12/22/19 12/22/19 12/22/19 18:43 18:50 19:35 Temperature 97.9 F Pulse Rate 77 80 Respiratory 18 18 18 Rate Blood Pressure 152/79 181/82 O2 Sat by Pulse 95 96 Oximetry - Reevaluation(s) Reevaluation #1: 12/22/19 18:38 Medical record is reviewed Reevaluation #2: 12/22/19 19:47 A she did respond to Narcan currently awake and alert Reevaluation #3: 12/22/19 19:48 Spoke with patient at length regarding findings, questions answered, admits unintentional overdose. Patient can be discharged home Medical Decision Making - Medical Decision Making 64 male DF for evaluation of intentional overdose currently controlled pain. Patient is awake and alert, arousable answer questions. Patient prefers discharged home - Lab Data Result diagrams: 12/22/19 19:04 12/22/19 19:04 Lab Results 12/22/19 12/22/19 Range/Units 19:04 19:04 WBC 11.7 H (3.8-10.6) k/uL RBC 3.93 L (4.30-5.90) m/uL Hgb 10.8 L (13.0-17.5) gm/dL Hct 33.9 L (39.0-53.0) % MCV 86.3 (80.0-100.0) fL MCH 27.6 (25.0-35.0) pg MCHC 32.0 (31.0-37.0) g/dL RDW 16.5 H (11.5-15.5) % Plt Count 321 (150-450) k/uL Neutrophils % 74 % Lymphocytes % 14 % Monocytes % 7 % Eosinophils % 2 % Basophils % 1 % Neutrophils # 8.7 H (1.3-7.7) k/uL Lymphocytes # 1.6 (1.0-4.8) k/uL Monocytes # 0.9 (0-1.0) k/uL Eosinophils # 0.3 (0-0.7) k/uL Basophils # 0.1 (0-0.2) k/uL Anisocytosis Slight Sodium 143 (137-145) mmol/L Potassium 5.2 H (3.5-5.1) mmol/L Chloride 107 (98-107) mmol/L Carbon Dioxide 26 (22-30) mmol/L Anion Gap 10 mmol/L BUN 47 H (9-20) mg/dL Creatinine 1.03 (0.66-1.25) mg/dL Est GFR (CKD-EPI)AfAm 90 (>60 ml/min/1.73 sqM) Est GFR (CKD-EPI)NonAf 78 (>60 ml/min/1.73 sqM) Glucose 75 (74-99) mg/dL Calcium 9.6 (8.4-10.2) mg/dL Total Bilirubin 0.7 (0.2-1.3) mg/dL AST 62 H (17-59) U/L ALT 28 (4-49) U/L Alkaline Phosphatase 57 (38-126) U/L Creatine Kinase 56 (55-170) U/L Total Protein 8.0 (6.3-8.2) g/dL Albumin 4.5 (3.5-5.0) g/dL Salicylates <1.0 mg/dL Acetaminophen <10.0 ug/mL Serum Alcohol <10 mg/dL - EKG Data -: EKG Interpreted by Me (EKG is sinus rhythm rate of 77. 162 QRS 82 QTC 466) Disposition Clinical Impression: Overdose, Anxiety disorder Disposition: HOME SELF-CARE Condition: Good Instructions (If sedation given, give patient instructions): Adult Overdose (ED) Is patient prescribed a controlled substance at d/c from ED?: No Referrals: Lula Conley MD [Primary Care Provider] - 1-2 days
[2019-12-22 18:46] VITALS: RESP 18; TEMP 97.9
[2019-12-22 19:16] LABS: Anisocytosis Slight; Basophils # (A) 0.1 k/uL (0-0.2); Basophils % (A) 1 %; Eosinophils # (A) 0.3 k/uL (0-0.7); Eosinophils % (A) 2 %; HCT 33.9 % (39.0-53.0); HGB 10.8 gm/dL (13.0-17.5); Lymphocytes # (A) 1.6 k/uL (1.0-4.8); Lymphocytes % (A) 14 %; MCH 27.6 pg (25.0-35.0); MCV 86.3 fL (80.0-100.0); Mean Platelet Volume 6.6; Monocytes # (A) 0.9 k/uL (0-1.0); Monocytes % (A) 7 %; Neutrophils # (A) 8.7 k/uL (1.3-7.7); Neutrophils % (A) 74 %; Platelet Count 321 k/uL (150-450); RBC 3.93 m/uL (4.30-5.90); RDW 16.5 % (11.5-15.5); WBC 11.7 k/uL (3.8-10.6)
[2019-12-22 19:27] LABS: ALT 28 U/L (4-49); AST 62 U/L (17-59); Acetaminophen <10.0 ug/mL; African American GFR (CKD) 90 (>60 ml/min/1.73 sqM); Albumin 4.5 g/dL (3.5-5.0); Alcohol <10 mg/dL; Alkaline Phosphatase 57 U/L (38-126); Anion Gap 10 mmol/L; Blood Urea Nitrogen 47 mg/dL (9-20); Calcium 9.6 mg/dL (8.4-10.2); Carbon Dioxide 26 mmol/L (22-30); Chloride 107 mmol/L (98-107); Creatine Kinase 56 U/L (55-170); Glucose 75 mg/dL (74-99); Non-African American GFR(CKD) 78 (>60 ml/min/1.73 sqM); Salicylate <1.0 mg/dL; Sodium 143 mmol/L (137-145); Total Bilirubin 0.7 mg/dL (0.2-1.3)
[2019-12-22 19:38] LABS: Potassium 5.2 mmol/L (3.5-5.1)
[2019-12-22 19:49] LABS: Appearance,Urine Clear (Clear); Bilirubin,Urine Negative (Negative); Blood,Urine Small (Negative); Color,Urine Light Yellow; Glucose,Urine (UA) Negative (Negative); Hyaline Casts,Urine 3 /lpf (0-2); Ketones,Urine Negative (Negative); Leukocyte Esterase,Urine Negative (Negative); Mucus,Urine Rare /hpf; Nitrite,Urine Negative (Negative); Protein,Urine Negative (Negative); RBC,Urine 6 /hpf (0-5); Urobilinogen,Urine <2.0 mg/dL (<2.0); WBC,Urine <1 /hpf (0-5)
[2019-12-22 20:04] VITALS: BP 174/83; PULSE 83
[2019-12-22 20:04] LABS: Cocaine Screen,Urine Not Detected (NotDetected); Phencyclidine Screen,Urine Not Detected (NotDetected); Urn Cannabinoid Scrn Not Detected (NotDetected)
[2019-12-22 20:05] LABS: Amphetamine Screen,Urine Not Detected (NotDetected); Barbiturate Screen,Urine Not Detected (NotDetected); Benzodiazepines Screen,Urine Detected (NotDetected); Methadone Screen, Urine Not Detected (NotDetected); Opiate Screen,Urine Detected (NotDetected); Oxycodone Screen, Urine Not Detected (NotDetected); Tricyclic Antidepressant,Urine Not Detected (NotDetected)
== END 2019-12-22 20:04 | disposition home or self-care (01) ==
LOC: EC 18:31
DX: T50.901A Poisoning by unspecified drugs, medicaments and biological substances, accidental (unintentional), initial encounter (principal); F41.9 Anxiety disorder, unspecified; M25.569 Pain in unspecified knee; I10 Essential (primary) hypertension; E78.5 Hyperlipidemia, unspecified; J44.9 Chronic obstructive pulmonary disease, unspecified; M19.90 Unspecified osteoarthritis, unspecified site; Z79.82 Long term (current) use of aspirin; Z79.899 Other long term (current) drug therapy; Z88.5 Allergy status to narcotic agent; Z88.8 Allergy status to other drugs, medicaments and biological substances; Z88.1 Allergy status to other antibiotic agents; Z87.891 Personal history of nicotine dependence; Z96.612 Presence of left artificial shoulder joint
CPT/HCPCS: 36415; 93005; 80053; 82550; 85025; 81001; 80306; 83520; 99284; 96374; G0480 ×2; J2310; 80320; 80329